=== PATIENT | male | born 1955 | race Caucasian/White ===

== ENCOUNTER → 2016-05-13 | Outpatient (CLI) | payer BC ==
[~2016-05-13] MED LIST: GRAP1CAP; HCT25T; INSU100V13; INSU100V6; IRBE300T9; MELO-195; MULT-608; VITA1CAP59
--- NOTE | 2016-05-13 17:57 | Diagnostic Imaging Report ---
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 FINDINGS: Two views of the right calcaneus demonstrate no fracture or evidence of osteomyelitis. There is some ulceration posterior to the calcaneus. Osteophytes are seen at the insertion of the Achilles tendon and plantar fascia. Degenerative changes are present along the dorsum of the foot. IMPRESSION: There is soft tissue ulceration with no evidence of osteomyelitis. Dictated by: Dictated on workstation # [id number]
== END ==
LOC: RAD 16:28
PROVIDERS: ATTEND Nurse Practitioner
DX: E11.621 Type 2 diabetes mellitus with foot ulcer (principal); L97.412 Non-pressure chronic ulcer of right heel and midfoot with fat layer exposed
CPT/HCPCS: 36415; 73650; 83036

== ENCOUNTER 2016-08-04 11:54 | Outpatient (RCR) | payer BC, OTHER | END 2016-08-05 | disposition home or self-care (01) | LOC: WOUNDCARE 11:54 | PROVIDERS: ATTEND Nurse Practitioner | DX: E11.621 Type 2 diabetes mellitus with foot ulcer (principal); L97.412 Non-pressure chronic ulcer of right heel and midfoot with fat layer exposed | CPT/HCPCS: 11042; 11045; 87070; 87075; 87077; 87186; 87205 ==

== ENCOUNTER → 2016-08-04 | Outpatient (CLI) | payer BC, OTHER ==
[2016-08-04 12:24] LABS: ANION GAP 6 MMOL/L (5-14); BLOOD UREA NITROGEN 14 MG/DL (7-18); BUN/CREATININE RATIO 17; CALCIUM 9.1 MG/DL (8.5-10.1); CARBON DIOXIDE 28 MMOL/L (21-32); CHLORIDE 103 MMOL/L (98-107); CREATININE SERUM 0.83 MG/DL (0.60-1.30); GFR ESTIMATED > 60; GLUCOSE 182 MG/DL (70-105); POTASSIUM 4.3 MMOL/L (3.6-5.0); SODIUM 137 MMOL/L (135-145)
== END ==
LOC: LAB 11:40
PROVIDERS: ATTEND Nurse Practitioner
DX: E11.621 Type 2 diabetes mellitus with foot ulcer (principal); L97.412 Non-pressure chronic ulcer of right heel and midfoot with fat layer exposed
CPT/HCPCS: 36415; 80048

== ENCOUNTER → 2016-09-15 | Outpatient (CLI) | payer BC | LOC: LAB 13:59 | PROVIDERS: ATTEND Nurse Practitioner | DX: E11.621 Type 2 diabetes mellitus with foot ulcer (principal); L97.412 Non-pressure chronic ulcer of right heel and midfoot with fat layer exposed | CPT/HCPCS: 36415; 83036 ==

== ENCOUNTER 2016-10-08 12:08 | Outpatient (RCR) | payer BC, OTHER ==
[~2016-10-08 12:08] MED LIST changes: -MULT-608; +MULT-608 PO; -VITA1CAP59; +VITA1CAP59 PO
== END 2016-10-15 16:00 | disposition home or self-care (01) ==
LOC: WOUNDCARE 12:08
PROVIDERS: ATTEND Nurse Practitioner
DX: E11.621 Type 2 diabetes mellitus with foot ulcer (principal); L97.412 Non-pressure chronic ulcer of right heel and midfoot with fat layer exposed
CPT/HCPCS: 11042; 15275; 29581; 87070; 87075; 87077; 87186; 87205

== ENCOUNTER 2016-10-12 19:37 | Emergency (ER) | payer BC ==
[~2016-10-12] VITALS: Ht 180.3 cm; Wt 108.9 kg
[~2016-10-12 19:37] MED LIST changes: +MULT-608; -MULT-608 PO; +VITA1CAP59; -VITA1CAP59 PO
--- NOTE | 2016-10-12 19:48 | ED General ---
General Chief Complaint: Trauma-Non Activation Stated Complaint: FALL Source of Information: Patient, EMS, Family History of Present Illness Time Seen by Provider: 19:46 Initial Comments To ER per EMS from home with reports of a fall and inability to get up. The fall was secondary to generalized weakness which has been progressive over the past [address] Falcon called the emergency room earlier today to report that he was having patient sent out via EMS for this progressive weakness, to the point that he is unable to take care of himself at home. Patient hasn't had a shower in several days according to his because he's been too weak. Patient is an insulin-dependent diabetic being treated by Stan Dumas in the wound care clinic for a diabetic ulcer of the right heel. As part of this treatment, patient was instructed to have absolutely no weightbearing on the right leg. As such, he has been bed/chair bound for the past 4 months trying to let this wound heal. He states the wound is healing nicely (sees wound care every ) and is just about completely healed. However, this restricted mobility has caused him general weakness. He also states that he now has carpal tunnel in both of his hands and can't apple solutions consultant anything. He denies any chest pain or shortness of breath. Tonight he grabbed the door frame and slid down so this was not a abrupt fall but rather a more slow and controlled fall. He denies any injury from this. Reports chronic left knee pain and chronic left hip pain which Dr. Cantu has already seen and advised needs replaced. Timing/Duration: Getting Worse Severity: Moderate Allergies and Home Medications Allergies Coded Allergies: No Known Drug Allergies (Verified Allergy, Unknown, 03/18/09) Home Medications Grape Seed Xt/Bioflav,[place] 1 Each Capsule, (Reported) Hydrochlorothiazide 25 Mg Tab, (Reported) Insulin Glargine,Hum.rec.anlog 100 Unit/1 Ml Vial, (Reported) Insulin Regular, Human 100 Unit/1 Ml Vial, (Reported) Irbesartan 300 Mg Tablet, (Reported) Meloxicam 15 Mg Tablet, (Reported) Multivitamins 1 Tab Tablet, (Reported) Vitamin B Complex 1 Cap Capsule, (Reported) Constitutional: see HPI, weakness EENTM: see HPI Respiratory: no symptoms reported Cardiovascular: no symptoms reported Genitourinary: no symptoms reported Musculoskeletal: see HPI, other (chronic left knee/left hip pain) Skin: no symptoms reported Psychiatric/Neurological: No Symptoms Reported Hematologic/Lymphatic: No Symptoms Reported Immunological/Allergic: no symptoms reported Past Rvlduyp-Zxitbz-Wllvoa Hx Patient Social History Recent Foreign Travel: No Contact w/Someone Who Travel: No Cardiovascular Hx Cardiac Disorders: Yes Neurological Hx Neurological Disorders: No Reproductive System Hx Reproductive Disorders: No Genitourinary Hx Genitourinary Disorders: No Gastrointestinal Hx Gastrointestinal Disorders: No Musculoskeletal Hx Musculoskeletal Disorders: Yes Endocrine Hx Endocrine Disorders: Yes HEENT HX ENT Disorders: No Psychosocial Hx Psychiatric Problems: No Blood Transfusions Hx Blood Disorders: No Physical Exam Vital Signs Vital Sign - Last 12Hours Capillary Refill : General Appearance: No Apparent Distress, WD/WN, Chronically ill, Obese Eyes: Bilateral Eye EOMI, Bilateral Eye Normal Inspection, Bilateral Eye PERRL HEENT: PERRL/EOMI, TMs Normal Neck: Full Range of Motion, Normal Inspection Respiratory: Normal Breath Sounds, No Accessory Muscle Use, No Respiratory Distress Cardiovascular: Regular Rate, Rhythm, Normal Peripheral Pulses Gastrointestinal: Normal Bowel Sounds, Non Tender, Soft Extremity: Normal Capillary Refill, Normal Inspection, Other (right leg wound not inspected as pt has a wound care applied Snehal Boot in place. ) Neurologic/Psychiatric: Alert, Oriented x3 Skin: Normal Color, Warm/Dry, Other (seborrheic dermatitis to eyebrows) Progress/Results/Core Measures Results/Orders Lab Results Laboratory Tests Test 10/12/16 19:42 10/12/16 19:44 10/12/16 20:12 Range/Units Glucometer 134 H 70-110 MG/DL White Blood Count 5.5 4.3-11.0 10^3/uL Red Blood Count 4.74 4.35-5.85 10^6/uL Hemoglobin 13.8 13.3-17.7 G/DL Hematocrit 41 40-54 % Mean Corpuscular Volume 86 80-99 FL Mean Corpuscular Hemoglobin 29 25-34 PG Mean Corpuscular Hemoglobin Concent 34 32-36 G/DL Red Cell Distribution Width 15.6 H 10.0-14.5 % Platelet Count 264 130-400 10^3/uL Mean Platelet Volume 8.9 7.4-10.4 FL Neutrophils (%) (Auto) 54 42-75 % Lymphocytes (%) (Auto) 32 12-44 % Monocytes (%) (Auto) 11 0-12 % Eosinophils (%) (Auto) 2 0-10 % Basophils (%) (Auto) 1 0-10 % Neutrophils # (Auto) 3.0 1.8-7.8 X 10^3 Lymphocytes # (Auto) 1.8 1.0-4.0 X 10^3 Monocytes # (Auto) 0.6 0.0-1.0 X 10^3 Eosinophils # (Auto) 0.1 0.0-0.3 10^3/uL Basophils # (Auto) 0.0 0.0-0.1 10^3/uL Erythrocyte Sedimentation Rate 6 0-30 MM/HR Prothrombin Time 13.1 12.2-14.7 SEC INR Comment 1.0 0.8-1.4 Sodium Level 142 135-145 MMOL/L Potassium Level 3.7 3.6-5.0 MMOL/L Chloride Level 107 98-107 MMOL/L Carbon Dioxide Level 23 21-32 MMOL/L Anion Gap 12 5-14 MMOL/L Blood Urea Nitrogen 13 7-18 MG/DL Creatinine 0.78 0.60-1.30 MG/DL Estimat Glomerular Filtration Rate > 60 BUN/Creatinine Ratio 17 Glucose Level 135 H 70-105 MG/DL Calcium Level 9.4 8.5-10.1 MG/DL Magnesium Level 2.2 1.8-2.4 MG/DL Total Bilirubin 0.8 0.1-1.0 MG/DL Aspartate Amino Transf (AST/SGOT) 16 5-34 U/L Alanine Aminotransferase (ALT/SGPT) 19 0-55 U/L Alkaline Phosphatase 51 40-136 U/L Troponin I < 0.30 <0.30 NG/ML Total Protein 6.7 6.4-8.2 G/DL Albumin 4.0 3.2-4.5 G/DL Thyroid Stimulating Hormone (TSH) 0.86 0.35-4.94 UIU/ML Urine Color YELLOW Urine Clarity CLEAR Urine pH 8 5-9 Urine Specific [place] 1.010 L 1.016-1.022 Urine Protein NEGATIVE NEGATIVE Urine Glucose (UA) NEGATIVE NEGATIVE Urine Ketones NEGATIVE NEGATIVE Urine Nitrite NEGATIVE NEGATIVE Urine Bilirubin NEGATIVE NEGATIVE Urine Urobilinogen NORMAL NORMAL MG/DL Urine Leukocyte Esterase NEGATIVE NEGATIVE Urine RBC (Auto) NEGATIVE NEGATIVE Urine RBC NONE /HPF Urine WBC NONE /HPF Urine Crystals NONE /LPF Urine Bacteria NEGATIVE /HPF Urine Casts NONE /LPF Urine Mucus NEGATIVE /LPF Urine Culture Indicated NO My Orders Orders - YADIRA DHILLON ASSOCIATE [employer] Cbc With Automated Diff (10/12/16 19:43) Comprehensive Metabolic Panel (10/12/16 19:43) Ua Culture If Indicated (10/12/16 19:43) Protime With Inr (10/12/16 19:43) Chest 1 View, Ap/Pa Only (10/12/16 19:43) Ekg Tracing (10/12/16 19:43) Troponin I (10/12/16 19:43) Erythrocyte Sedimentation Rate (10/12/16 19:58) Magnesium (10/12/16 19:58) Thyroid Stimulating Hormone (10/12/16 19:58) Ct Head/Cervical Spine Wo (10/12/16 20:49) Hemoglobin A1c (10/12/16 21:38) Vital Signs/I&O Vital Sign - Last 12Hours 10/12/16 10/12/16 19:39 19:39 Temp 98.3 98.3 Pulse 77 77 Resp 20 20 B/P (MAP) 143/103 (116) 143/103 Pulse Ox 98 98 O2 Delivery Room Air Room Air Diagnostic Imaging Diagonstic Imaging: Xray Comments NAME: GUERLINEERVIN Sabi MED REC#: [id number] PT STATUS: REG ER : 1955 PHYSICIAN: YADIRA DHILLON APRN ADMIT DATE: 10/12/16/ER Draft Date of Exam:10/12/16 CHEST 1 VIEW, AP/PA ONLY INDICATION: Weakness COMPARISON: 03/13/2009 FINDINGS: Single frontal view of the chest is obtained. Heart size is normal. The pulmonary vessels appear unremarkable. There is no pneumothorax, mediastinal widening or pleural fluid demonstrated. The lungs are clear. IMPRESSION: No acute abnormality is demonstrated. Dictated on workstation # [id number] Dict: 10/12/162004 Trans: 10/12/162007 MARA [id number] Interpreted by: VONDA MOORE DO Electronically signed by: NAME: ERVIN CUNHA MED REC#: [id number] PT STATUS: REG ER : 1955 PHYSICIAN: YADIRA DHILLON APRN ADMIT DATE: 10/12/16/ER Draft Date of Exam:10/12/16 CT HEAD/CERVICAL SPINE WO PROCEDURE: CT head and CT cervical spine without contrast. TECHNIQUE: Multiple contiguous axial images were obtained through the brain and cervical spine without the use of intravenous contrast. Sagittal and coronal reformations through the cervical spine were then performed. INDICATION: Neck pain. COMPARISON: None FINDINGS: Head CT: No acute intracranial hemorrhage, mass effect or edema is demonstrated. The lynn-white junction is preserved. The ventricles appear normal. There is mild atrophy. No focal abnormality is suspected. The paranasal sinuses and mastoids are clear as visualized. Cervical spine CT: No acute fracture or osseous destructive process is seen. There is severe cervical spondylosis and facet arthropathy with degenerative disc changes. There is disc space narrowing predominantly at C5/C6 and C6/C7. Prominent disc osteophyte complexes at C5/C6 and C6/C7 results in fairly severe central stenosis. Significant hypertrophic facet arthropathy throughout the cervical spine results in fairly severe foraminal narrowing on the right at C2/C3, bilaterally at C3/C4, C4/C5, C5/C6 and C6/C7. Prevertebral soft tissues appear unremarkable. IMPRESSION: 1. No evidence of an acute intracranial abnormality. 2. No evidence of acute cervical spine fracture. There are, however, severe degenerative changes with multiple levels of severe foraminal and a couple levels of severe central stenosis. Dictated on workstation # [id number] Dict: 10/12/162112 Trans: 10/12/16 212 [facility] [id number] Interpreted by: VONDA MOORE DO Electronically signed by: Departure Communication Progress Notes Dr. Atkinson is not on-call but he graciously took my call and agrees to see the patient on Wednesday in his clinic. Impression Impression: Primary Impression: Cervical spinal stenosis Additional Impression: General weakness Disposition: 01 HOME, SELF-CARE Condition: Stable Departure-Patient Inst. Decision time for Depature: 21:27 Referrals: LEIA ATKINSON MD, FLOYD R MD (PCP/Family) Primary Care Physician Patient Instructions: Spinal Stenosis Add. Discharge Instructions: 1. Return to ER for any concerns 2. Call elevated at Dr. Atkinson's office tomorrow morning at [phone] to make an appointment to be seen on Wednesday per Dr. Atkinson's request. All discharge instructions reviewed with patient and/or family. Voiced understanding. Copy Copies To 1: LEIA ATKINSON MD, PETER J APRN Oct 12, 2016 19:48
[2016-10-12 20:01] LABS: BASOPHILS % (AUTO) 1 % (0-10); EOSINOPHILS # (AUTO) 0.1 10^3/uL (0.0-0.3); EOSINOPHILS % (AUTO) 2 % (0-10); LYMPHOCYTES # (AUTO) 1.8 X 10^3 (1.0-4.0); LYMPHOCYTES % (AUTO) 32 % (12-44); MEAN CORPUSCULAR HEMOGLOBIN 29 PG (25-34); MEAN CORPUSCULAR HGB CONC 34 G/DL (32-36); MEAN CORPUSCULAR VOLUME 86 FL (80-99); MEAN PLATELET VOLUME 8.9 FL (7.4-10.4); MONOCYTES # (AUTO) 0.6 X 10^3 (0.0-1.0); MONOCYTES % (AUTO) 11 % (0-12); NEUTROPHILS % (AUTO) 54 % (42-75); PLATELET COUNT 264 10^3/uL (130-400); RED BLOOD COUNT 4.74 10^6/uL (4.35-5.85); RED CELL DISTRIBUTION WIDTH 15.6 % (10.0-14.5); WHITE BLOOD COUNT 5.5 10^3/uL (4.3-11.0)
--- NOTE | 2016-10-12 20:08 | Diagnostic Imaging Report ---
INDICATION: Weakness COMPARISON: 03/13/2009 FINDINGS: Single frontal view of the chest is obtained. Heart size is normal. The pulmonary vessels appear unremarkable. There is no pneumothorax, mediastinal widening or pleural fluid demonstrated. The lungs are clear. IMPRESSION: No acute abnormality is demonstrated. Dictated by: Dictated on workstation # [id number]
[2016-10-12 20:12] LABS: PROTHROMBIN TIME PATIENT 13.1 SEC (12.2-14.7)
[2016-10-12 20:14] LABS: MAGNESIUM 2.2 MG/DL (1.8-2.4)
[2016-10-12 20:21] LABS: ALANINE AMINOTRANSFERASE 19 U/L (0-55); ANION GAP 12 MMOL/L (5-14); ASPARTATE AMINO TRANSFERASE 16 U/L (5-34); BILIRUBIN,TOTAL 0.8 MG/DL (0.1-1.0); BLOOD UREA NITROGEN 13 MG/DL (7-18); BUN/CREATININE RATIO 17; CALCIUM 9.4 MG/DL (8.5-10.1); CARBON DIOXIDE 23 MMOL/L (21-32); CHLORIDE 107 MMOL/L (98-107); CREATININE SERUM 0.78 MG/DL (0.60-1.30); GFR ESTIMATED > 60; GLUCOSE 135 MG/DL (70-105); POTASSIUM 3.7 MMOL/L (3.6-5.0); SODIUM 142 MMOL/L (135-145); TOTAL PROTEIN 6.7 G/DL (6.4-8.2)
[2016-10-12 20:21] LABS: BILIRUBIN,URINE NEGATIVE (NEGATIVE); KETONES,URINE NEGATIVE (NEGATIVE); LEUKOCYTE ESTERASE ,URINE NEGATIVE (NEGATIVE); NITRITE,URINE NEGATIVE (NEGATIVE); PH,URINE 8 (5-9); PROTEIN,URINE NEGATIVE (NEGATIVE); UROBILINOGEN,URINE NORMAL (NORMAL)
[2016-10-12 20:27] LABS: TROPONIN I < 0.30 NG/ML (<0.30)
[2016-10-12 20:41] LABS: THYROID STIMULATING HORMONE 0.86 UIU/ML (0.35-4.94)
--- NOTE | 2016-10-12 21:25 | Diagnostic Imaging Report ---
PROCEDURE: CT head and CT cervical spine without contrast. TECHNIQUE: Multiple contiguous axial images were obtained through the brain and cervical spine without the use of intravenous contrast. Sagittal and coronal reformations through the cervical spine were then performed. INDICATION: Neck pain. COMPARISON: None FINDINGS: Head CT: No acute intracranial hemorrhage, mass effect or edema is demonstrated. The lynn-white junction is preserved. The ventricles appear normal. There is mild atrophy. No focal abnormality is suspected. The paranasal sinuses and mastoids are clear as visualized. Cervical spine CT: No acute fracture or osseous destructive process is seen. There is severe cervical spondylosis and facet arthropathy with degenerative disc changes. There is disc space narrowing predominantly at C5/C6 and C6/C7. Prominent disc osteophyte complexes at C5/C6 and C6/C7 results in fairly severe central stenosis. Significant hypertrophic facet arthropathy throughout the cervical spine results in fairly severe foraminal narrowing on the right at C2/C3, bilaterally at C3/C4, C4/C5, C5/C6 and C6/C7. Prevertebral soft tissues appear unremarkable. IMPRESSION: 1. No evidence of an acute intracranial abnormality. 2. No evidence of acute cervical spine fracture. There are, however, severe degenerative changes with multiple levels of severe foraminal and a couple levels of severe central stenosis. Dictated by: Dictated on workstation # [id number]
[2016-10-12 22:14] VITALS: BP 143/103
== END 2016-10-12 22:14 | disposition home or self-care (01) ==
LOC: EDUNIT# 19:37 → ER 19:38
DX: M48.02 Spinal stenosis, cervical region (principal); R53.1 Weakness; E11.621 Type 2 diabetes mellitus with foot ulcer; L97.419 Non-pressure chronic ulcer of right heel and midfoot with unspecified severity; Z79.4 Long term (current) use of insulin
CPT/HCPCS: 36415; 70450; 71010; 72125; 80053; 81000; 82962; 83036; 83735; 84443; 84484; 85025; 85610; 85652; 93005

== ENCOUNTER 2016-10-19 13:37 | Inpatient (IN) | payer BC ==
[~2016-10-19] VITALS: Ht 180.3 cm; Wt 103.4 kg
[~2016-10-19 13:37] MED LIST changes: -MULT-608; +MULT-608 PO; -VITA1CAP59; +VITA1CAP59 PO
[2016-10-19 16:20] VITALS: BP 113/82
[2016-10-19] MEDS ORDERED: ACETAMINOPHEN 500 MG TAB (TYLENOL) PO PRN (17:15)
[2016-10-19] MEDS: HYDROcodone/APAP 10 MG/325 MG (LORTAB) TAB PO PRN ×2 (18:04→22:45)
[2016-10-19] MEDS ORDERED: metFORMIN 500 MG (GLUCOPHAGE) TAB PO ONE (18:15)
[2016-10-19] MEDS: inSUlin (REGULAR) HUMAN 1 UNIT/0.01 ML (CHARGE PER UNIT) SC SCH (20:20)
[2016-10-19] MEDS: SENNA W/DOCUSATE (SENOKOT S) TABLET PO SCH (21:31)
[2016-10-19] MEDS: VERAPAMIL 80 MG (ISOPTIN) TAB PO SCH (21:32)
--- NOTE | 2016-10-20 01:20 | HISTORY AND PHYSICAL ---
DATE OF SERVICE: 10/19/2016 CHIEF COMPLAINT: Weakness and numbness in both hands. HISTORY OF PRESENT ILLNESS: The patient is a 61-year-old male, currently unemployed who has developed progressive weakness and numbness in both hands. The patient had evaluation at [facility] with Dr. Atkinson. Imaging studies reveal multilevel cervical facet disease and foraminal stenosis causing severe stenosis and cord compression with resulting cervical spondylosis and myelopathy with above symptoms as well as numbness and decreased strength in lower limbs. The patient underwent C3 to C7 anterior cervical reconstruction and corpectomy and is now referred to [facility] inpatient rehabilitation for ongoing therapies with approval from his commercial insurance. He had been modified independent with a crutch prior to this but having increasing symptoms and pain. Currently, he is using Vicodin for pain control. He is to have a rigid cervical collar on at all times except for eating. He has been followed by [facility] on an outpatient basis for a diabetic pressure sore on the right foot which receives daily silver alginate treatments. He has had prior right hip surgery as well. He is type 2 diabetic and on sliding scale insulin regimen as well as oral medication. He is on CPAP machine for AMY. Currently, he requires assistance for his ADLs and mobility skills.He is max assist for transfers and dependent for lower body dressing and wound care .See PT and OT evals for futher details. PAST MEDICAL HISTORY: Cervical spine stenosis, right diabetic foot ulcer involving the heel, diabetes mellitus, hypertension, AMY on CPAP, osteoarthritis. PAST SURGICAL HISTORY: He has had prior right hip surgery. ALLERGIES: No known medication allergies. FAMILY HISTORY: Positive for diabetes mellitus. SOCIAL HISTORY: No tobacco or alcohol use. He is single. He lives in a one story home with steps to enter in [place], [place]. PCP is Dr. Falcon and Dr. Duvall is hospitalist. He is right hand dominant. He was working with [employer]. REVIEW OF SYSTEMS: A 10-point review of systems is significant for weakness and numbness in hands, numbness in feet, blurred vision, skin rash positive for psoriasis, right hip pain, neck pain, occasional dizziness, depression and sleep disturbance. MEDICATIONS: Hydrochlorothiazide 25 mg p.o. daily, metformin 500 mg p.o. b.i.d., with meals 1 tablet p.o. daily, vitamin B complex 1 tablet p.o. daily, verapamil 40 mg p.o. b.i.d., tramadol 50 mg p.o. q.h.s., Senokot S 1 tablet p.o. b.i.d., sliding scale insulin regimen, metformin, Tylenol 500 mg p.o. q. 5 hours p.r.n. mild pain, hydrocodone/APAP 10 mg 1 tablet p.o. q. 4 hours p.r.n. moderate pain. PHYSICAL EXAMINATION: GENERAL APPEARANCE: Significant for male, appearing his stated age. He is alert and oriented, lying in bed with rigid collar in place, complaining of posterior neck pain. VITAL SIGNS: He is afebrile. Pulse is 88. Respirations 20. Blood pressure 113/82 and oxygen saturation is 98% on room air. HEENT: Vision, speech and hearing are grossly intact. No oral lesion is noted. NECK: Rigid cervical collar, incision site covered in dressing, dry and intact. HEART: Regular rate and rhythm. LUNGS: Clear. ABDOMEN: Soft and nontender. Bowel sounds are present. EXTREMITIES: No lower limb edema. No calf tenderness. MUSCULOSKELETAL: The patient has functional passive range of motion of all four extremities with some limitations taken due to the rigid collar. NEUROLOGIC: He has weakness in both arms, particularly on the right wrist extension and right finger extensors. He has fair minus strength in right private household worker and fair in left private household worker. He reports tingling in both hands as well as his feet. Strength in lower extremities 3-/5. Cognition appears grossly intact. IMPRESSION: 1. Ambulatory dysfunction secondary to cervical spine stenosis with cord compression with myelopathy, status post decompressive surgery as per above Dr. Atkinson at [facility]. 2. Diabetes mellitus, controlled with medication. 3. Hypertension, controlled with medication. 4. AMY, on CPAP. 5. Depression, on medication. 6. Diabetic foot ulcer rt heel now healed as per DR Ceja note PLAN: 1. The patient will have a comprehensive program of inpatient rehabilitation with a goal of maximizing level of functional independence prior to discharge home with home healthcare. The patient will have PT and OT 90 minutes per day, each discipline, 5 days a week for gait, strength, conditioning, balance, ADLs and patient/family training, caregiver training as necessary, any adaptive equipment and training as necessary, pain management. Speech therapy to do cognitive assessment and treat as indicated. Rehabilitation Nursing to assist with bowel, bladder, skin, wound care, medication administration, pain management. enterprise services manager for discharge planning and community re-entry. Respiratory care: Continue assist with CPAP administration as needed. Follow up with Dr. Atkinson and Dr. Vaughan as per their schedule. Routine admission labs. Accu-Checks q.i.d. before each meal and at bedtime. Adjust medications as necessary. Estimated length of stay, 2 weeks. PROGNOSIS: Rehab prognosis appears good for the goal of discharging him home with home healthcare, modified independent to supervision for ADLs and mobility skills. DIET: Carb consistent. CODE STATUS: Full code. Job ID: [id number] DocumentID: [id number] Dictated Date: 10/19/2016 19:42:50 Photographer Helper Date: 10/19/2016 22:34:18 Dictated By: JOSEY SALINAS MD MTDD
[2016-10-20] MEDS: HYDROcodone/APAP 10 MG/325 MG (LORTAB) TAB PO PRN ×6 (02:14→22:48)
[2016-10-20 06:00] VITALS: BP 130/90
[2016-10-20] MEDS: inSUlin (REGULAR) HUMAN 1 UNIT/0.01 ML (CHARGE PER UNIT) SC SCH ×5 (06:31→18:56)
[2016-10-20] MEDS: metFORMIN 500 MG (GLUCOPHAGE) TAB PO SCH ×2 (06:31→18:55)
[2016-10-20] MEDS: MULTIVIT W/MINERALS TAB (THERAGRAN M) PO SCH (06:31)
[2016-10-20 07:00] LABS: BASOPHILS % (AUTO) 1 % (0-10); EOSINOPHILS # (AUTO) 0.3 10^3/uL (0.0-0.3); EOSINOPHILS % (AUTO) 4 % (0-10); LYMPHOCYTES # (AUTO) 1.3 X 10^3 (1.0-4.0); LYMPHOCYTES % (AUTO) 21 % (12-44); MEAN CORPUSCULAR HEMOGLOBIN 29 PG (25-34); MEAN CORPUSCULAR HGB CONC 33 G/DL (32-36); MEAN CORPUSCULAR VOLUME 89 FL (80-99); MONOCYTES # (AUTO) 0.7 X 10^3 (0.0-1.0); MONOCYTES % (AUTO) 12 % (0-12); NEUTROPHILS # (AUTO) 3.8 X 10^3 (1.8-7.8); NEUTROPHILS % (AUTO) 62 % (42-75); PLATELET COUNT 259 10^3/uL (130-400); RED BLOOD COUNT 4.59 10^6/uL (4.35-5.85); RED CELL DISTRIBUTION WIDTH 15.9 % (10.0-14.5); WHITE BLOOD COUNT 6.1 10^3/uL (4.3-11.0)
[2016-10-20 07:21] LABS: ALANINE AMINOTRANSFERASE 21 U/L (0-55); ALBUMIN 3.5 GM/DL (3.2-4.5); ANION GAP 11 MMOL/L (5-14); ASPARTATE AMINO TRANSFERASE 16 U/L (5-34); BLOOD UREA NITROGEN 22 MG/DL (7-18); BUN/CREATININE RATIO 32 (0-20); CALCIUM 9.8 MG/DL (8.5-10.1); CARBON DIOXIDE 25 MMOL/L (21-32); CHLORIDE 103 MMOL/L (98-107); CREATININE SERUM 0.69 MG/DL (0.60-1.30); GFR ESTIMATED > 60; GLUCOSE 175 MG/DL (70-105); HEMOLYSIS 9 (-100-29); ICTERUS 0.9 (-100-1.9); LIPEMIA 3 (-100-49); SODIUM 139 MMOL/L (135-145); TOTAL PROTEIN 6.8 GM/DL (6.4-8.2)
--- NOTE | 2016-10-20 07:53 | PM&R Post Admission Assessment ---
Post Admission Physician Asses The preadmission screen agrees with the post admission assessment that the patient is a good candidate for inpatient rehabilitation. The patient will have a comprehensive program of inpatient rehabilitation with a goal of maximizing level of functional independence prior to discharge home with [facility]. The patient will have PT/OT ninety minutes per day, each discipline , five days a week for gait, strengthening, conditioning, balance, ADLs, any patient/family/caregiver training necessary. Speech therapy to do cognitive assessment and treat as indicated. Rehabilitation nursing to assist with bowel, bladder, skin, wound care, medication administration, pain management. Health Center Manager to assist with discharge planning, community reentry. SCD's for DVT prophylaxis. He appears to be well motivated to participate in three hours of therapy a day. He should be able to tolerate three hours of therapy a day from a medical and surgical standpoint . He should benefit from the three hours of therapy a day. He has a reasonable discharge plan, reasonable discharge rehabilitation goals and a supportive family. He has various comorbidities that need to be closely monitored with medications and treatments adjusted on a daily basis as needed. These include: Pain management DM Rt diabetic foot ulcer HTN AMY OA Barriers to discharge for this patient who had been independent prior to this are for him to be modified independent to supervision for ADLs and mobility skills prior to discharge home with [facility], so as to lessen the burden of the caregivers. Risks for this patient include: 1. Fall 2. Fracture 3. DVT 4. Pulmonary embolism 5. Wound infection 6. Skin breakdown 7. Contractures 8. Poorly controlled pain 9. Urinary retention 10. UTI 11. Respiratory infection 12. Aspiration 13. Poorly controlled HTN 14. Poorly controlled DM Estimated Length of Stay: 14 days Prognosis: Rehab prognosis appears good for goal of discharge home with [facility] modified independent to supervision for ADLs and mobility skills. JOSEY SALINAS MD Oct 20, 2016 07:53
[2016-10-20] MEDS: HYDROCHLOROTHIAZIDE 25 MG (HCTZ) TAB PO SCH (07:58)
[2016-10-20] MEDS: SENNA W/DOCUSATE (SENOKOT S) TABLET PO SCH ×2 (07:58→20:28)
[2016-10-20] MEDS: VERAPAMIL 80 MG (ISOPTIN) TAB PO SCH ×2 (07:59→20:27)
--- NOTE | 2016-10-20 10:08 | Physical Therapy Evaluation ---
PT Evaluation-General Medical Diagnosis Admission Date Oct 19, 2016 at 16:34 Medical Diagnosis: C3 to C7 anterior cervical reconstruction and Onset Date: Oct 15, 2016 Therapy Diagnosis Therapy Diagnosis: impaired mobility, strength, balance, endurance Height/Weight Height (Feet): 5 Height (Inches): 11.00 Weight (Pounds): 230 Weight (Ounces): 8.0 Precautions Precautions/Isolations: Fall Prevention, Standard Precautions Referral Physician: Rambo Reason for Referral: Evaluation/Treatment Medical History Additional Medical History Cervical spine stenosis, right diabetic foot ulcer, diabetes mellitus, hypertension, AMY on CPAP, osteoarthritis, He has had prior right hip surgery Current History Patient had a decline in function about a week before surgery, could not ambulate and lost the strength in his hands. Reviewed History: Yes Social History Home: Single Level Current Living Status: Significant Other Entry Into Home: Stairs With Railing PT Steps Into Home: 5 Prior/Core FIM Prior Level of Function Functional [place] Measure 0=Not Assessed/NA 4=Minimal Assistance 1=Total Assistance 5=Supervision or Setup 2=Maximal Assistance 6=Modified [place] 3=Moderate Assistance 7=Complete [place] Bed Mobility: 6 Transfers (B,C,W/C) (FIM): 6 Gait: 6 Before getting weak, patient used a crutch to ambulate, and he did that for a long time. PT Evaluation-Current Subjective Patient in bed pre tx, agrees to PT, will be co-treating with OT due to poor patient balance, activity tolerance, pain, poor functional mobility. Patient currently has pain of 5/10 in his neck and right hip. Patient states his right hip is pretty bad, as well as his right knee, which he has a brace for. Patient needs to get on the commode for a BM. He also has a diabetic foot ulcer on the right heel which he wears a darco shoe for. Pt/Family Goals to be independent at home Objective Patient Orientation: Person, Place, Situation ROM/Strength ROM Lower Extremities NT Strenght Lower Extremities 3-/5 gross bilateral lower extremities Integumentary/Posture Bowel Incontinence: Yes Neuromuscular (Tone, Coordination, Reflexes) Patient has poor general tone and coordination. Sensory Vision: Wears Glasses Hearing: Functional Sensation Right Lower Extremit: Impaired Sensation Left Lower Extremity: Impaired Transfers Functional [place] Measure 0=Not Assessed/NA 4=Minimal Assistance 1=Total Assistance 5=Supervision or Setup 2=Maximal Assistance 6=Modified [place] 3=Moderate Assistance 7=Complete IndependenceIRFPAI Quality Coding Scale 6 Independent with activity with or without an assistive device 5 Patient requires set up or clean up by helper. Patient completes activity by themselves 4 Supervision or touching assist (CGA). [place] provide cues , steadying assist 3 The helper provides less than half the effort to complete the activity 2 The helper provides more than half the effort to complete the activity 1 Dependent. The helper does all the effort to complete an activity 7 Patient refused to complete or attempt activity 9 The patient did not perform the activity before the current illness or injury 88 Not attempted due to Medical conditions or safety concerns Transfers (B, C, W/C) (FIM): 2 Scootin Rollin Roll Left to Right (QC): 2 Supine to/from Sit: 2 Sit to/from Stand: 2 bed t/f WC(FIM only if WC use): 2 Sit to Lying (QC): 2 Lying to Sitting/Side of Bed(Q: 2 Sit to Stand (QC): 2 Chair/Udf-ha-Wpnzp Xfer(QC): 2 Car Transfer (QC): 88 Patient performs bed mobility with max assist, stand pivot with max assist of 2. Cues for safety and hand placement and positioning. Gait Does the Patient Walk?: No and Walking Goal IS indicated Wheelchair Training Does the Pt Use a Wheelchair?: Yes Wheelchair (FIM): 5 Distance: 150' Wheelchair Level of Assist: 5 Wheel 50 ft with 2 turns (QC): 4 Wheel 150 ft (QC): 4 Type of Wheelchair: Motorized Patient has poor strength and coordination in his hands and cannot propel a manual wheelchair, he is SBA with driving a power chair. Stairs Stairs (FIM): 0 1 Step (curb) (QC): 88 4 Steps (QC): 88 12 Steps (QC): 88 If not tested on admit;explain Patient does not have the strength to ambulate much less go up stairs. Balance Sitting Static: Fair Sitting Dynamic: Fair Standing Static: Poor Standing Dynamic: Poor Picking up an Object (QC): 88 Treatment adjusting power chair to fit patient Assessment/Needs Patient has impaired mobility, strength, endurance, balance. He is a high risk of falling. Skilled PT indicated to improve bed mobility and transfers and try to get patient ambulating to improve functional mobility and independence at home. Rehab Potential: Fair PT Short Term Goals Short Term Goals Time Frame: Oct 27, 2016 Transfers (B,C,W/C) (FIM): 3 Gait (FIM): 1 Gait Distance Comment: 8' Gait Level of Assist: 3 Wheelchair (FIM): 6 Wheelchair Distance: 200' PT Cloth Hauler Goals Cloth Hauler Goals PT Alf Goals Time Frame: Nov 10, 2016 Transfers (B,C,W/C) (FIM): 4 Sit to Lying (QC): 3 Lying-Sitting on Side/Bed(QC): 3 Sit to Stand (QC): 3 Rollin Roll Left to Right (QC): 3 Chair/Eqn-tx-Swyrn Xfer(QC): 3 Car Transfer (QC): 3 Gait (FIM): 1 Distance: 20' Walk 10 feet (QC): 3 Walk 10ft-Uneven Surface(QC): 88 Walk 50ft with 2 Turns (QC): 88 Walk 150 ft (QC): 88 Gait Level of Assist: 4 Gait Assistive Device: FWW Wheelchair (FIM): 6 Distance: 500' Wheel 50 feet with 2 turns (QC: 6 PT Plan Problem List Problem List: Activity Tolerance, Functional Strength, Safety, Balance, Gait, Transfer, Bed Mobility, ROM Treatment/Plan Treatment Plan: Continue Plan of Care Treatment Plan: Bed Mobility, Education, Functional Activity Fady, Functional Strength, Group Therapy, Gait, Safety, Therapeutic Exercise, Transfers Treatment Duration: Nov 10, 2016 # of days/week 5-6 Visits Per Week: 10-11 Minutes/Day (M-F): 60-90 Minutes/Day (Sat/Cotter): 15-30 Pt/Family Agrees w/Plan: Yes Safety Risks/Education Patient Education: Transfer Techniques, Steps, Correct Positioning, W/C Management, Safety Issues Teaching Recipient: Patient Teaching Methods: Demonstration, Discussion Response to Teaching: Reinforcement Needed Discharge Recommendations Plan Patient will perform bed mobility and transfer training, balance and endurance training, functional strengthening, stair training, gait training, and education , to improve functional mobility and independence at home. Therapy D/C Recommendations: Home w/ Family Support, Nursing Home (TCU/NH) Time/GCodes Time In: 900 Time Out: 1000 Total Billed Treatment Time: 60 Total Billed Treatment 1 visit EVM 15' WCH 15' FA 30' Co-treated with OT for 45 min. OT assisted with toileting with transfers and cleaning and gave the patient a bath while PT worked on his power chair adjusting and fitting. PT had 15 min [id number] for the eval. CATALINA RUBI PT Oct 20, 2016 10:08
[2016-10-20] MEDS ORDERED: HYDR25TA4 PO (10:16)
[2016-10-20] MEDS ORDERED: INSU100V31 SQ (10:16)
[2016-10-20] MEDS ORDERED: CELE400C PO (10:22)
[2016-10-20] MEDS ORDERED: METF500T4 PO (10:22)
[2016-10-20] MEDS ORDERED: VERA40TA2 PO (10:22)
[2016-10-20] MEDS ORDERED: ACET-2267 PO (10:22)
[2016-10-20] MEDS ORDERED: TRAM50TA2 PO (10:22)
[2016-10-20] MEDS ORDERED: HYDR-753 PO (10:22)
[2016-10-20] MEDS ORDERED: HYDROcodone/APAP 10 MG/325 MG (LORTAB) TAB PO SCH (10:45)
[2016-10-20] MEDS ORDERED: ACETAMINOPHEN 500 MG TAB (TYLENOL) PO PRN (10:45)
--- NOTE | 2016-10-20 10:47 | Consultation-Hospitalist ---
HPI History of Present Illness: HPI/Chief Complaint CC: Medical management following cervical spine surgery HPI: This is a 61-year-old white male that had an uncomplicated cervical spine surgery by Dr. Atkinson on 10/13/16 because of spinal cord compression causing upper and lower extremity weakness with severe radiculopathy and neuropathy and inability to walk. He was seen in the emergency room via [facility] and sent over to Dr. Atkinson's office who evaluated the patient to be in a surgical urgency and underwent cervical spine decompression surgery with hardware placement in an uncomplicated manner on 10/15/16. 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 He has a history of AMY compliant with CPAP, hypertension, osteoarthritis and diabetes mellitus insulin- dependent. He had an uncomplicated course at [facility] and [place], [place] of which I saw him most days of admission following along for medical management. He did have severe fecal impaction with severe constipation due to the spinal cord compression situation in addition to narcotic bowel that was resolved after soapsuds enema given at [facility] yesterday. BM regimen will be initiated. Source: patient Date Seen 10/20/16 Attending Physician Sebastian Ricks MD PCP Siddharth Falcon MD Referring Physician Date of Admission Oct 19, 2016 at 16:34 Home Medications & Allergies Home Medications Reviewed patient Home Medication Reconciliation Form Allergies Allergies Coded Allergies No Known Drug Allergies ([id number]) Past Ygukwao-Udugvs-Daztjq Hx Patient Social History Marrital Status: , cohabiting Employed/Student: employed ([employer]) Alcohol Use: Denies Use Recreational Drug Use: No Smoking Status: Former Smoker 2nd Hand Smoke Exposure: No Physical Abuse Screen: No Sexual Abuse: No Recent Foreign Travel: No Contact w/other who traveled: No Recent Hopitalizations: Yes Seasonal Allergies Seasonal Allergies: No Surgeries HX Surgeries: Yes Surgeries: Orthopedic Respiratory Hx Respiratory Disorders: Yes Respiratory Disorders: Sleep Apnea Cardiovascular Hx Cardiovascular Disorders: Yes Cardiac Disorders: Hypertension Neurological Hx Neurological Disorders: Yes Neurological Disorders: Neuropathy Reproductive System Hx Reproductive Disorders: No Genitourinary Hx Genitourinary Disorders: No Gastrointestinal Hx Gastrointestinal Disorders: Yes Gastrointestinal Disorders: Chronic Constipation Musculoskeletal Hx Musculoskeletal Disorders: Yes Musculoskeletal Disorders: Arthritis, Chronic Back Pain, Contracture Endocrine Hx Endocrine Disorders: Yes Endocrine Disorders: Diabetes, Insulin dep HEENT HX ENT Disorders: No HEENT Disorders: Cataract Hearing Impairment: Denies Cancer Hx Cancer: No Psychosocial Hx Psychiatric Problems: No Integumentary Skin/Integumentary Disorders: Psoriasis Blood Transfusions Hx Blood Disorders: No Review of Systems Date Seen by Provider: Oct 20, 2016 Time Seen by Provider: 10:30 Constitutional: see HPI EENTM: no symptoms reported Respiratory: no symptoms reported Cardiovascular: no symptoms reported Gastrointestinal: constipation Genitourinary: no symptoms reported Musculoskeletal: back pain, neck pain Skin: no symptoms reported, see HPI (DM wound right foot) Psychiatric/Neurological: No Symptoms Reported Physical Exam Physical Exam Vital Signs Vital Sign - Last 12Hours 10/19/16 16:20 Temp 98.2 Pulse 88 Resp 20 B/P (MAP) 113/82 Pulse Ox 98 O2 Delivery Room Air Capillary Refill : Less Than 3 Seconds General Appearance: No Apparent Distress, WD/WN, Chronically ill, Obese Eyes: Bilateral Eye Normal Inspection, Bilateral Eye PERRL HEENT: PERRL/EOMI, Normal ENT Inspection, Pharynx Normal Neck: Full Range of Motion, Normal Inspection, Non Tender, Supple, Carotid Bruit Respiratory: Chest Non Tender, Lungs Clear, Normal Breath Sounds, No Accessory Muscle Use, No Respiratory Distress Cardiovascular: Regular Rate, Rhythm, No Edema, No Gallop, No JVD, No Murmur, Normal Peripheral Pulses Gastrointestinal: Normal Bowel Sounds, No Organomegaly, No Pulsatile Mass, Non Tender, Soft Back: Normal Inspection, No CVA Tenderness, No Vertebral Tenderness Extremity: Normal Capillary Refill, Normal Inspection, Normal Range of Motion, Non Tender, No Calf Tenderness, No Pedal Edema Neurologic/Psychiatric: Alert, Oriented x3, Normal Mood/Affect, Motor Weakness (arms and legs) Skin: Normal Color, Warm/Dry Lymphatic: No Adenopathy Results Results/Procedures Lab Laboratory Tests 10/20/16 06:18 10/20/16 06:48 Assessment/Plan Admission Diagnosis Assessment: Debility following cervical spine surgery due to spinal cord compression causing radiculopathy and neuropathy and inability to walk with arm and leg weakness Diabetic ulcer right foot Diabetes mellitus insulin-dependent Hypertension AMY compliant with sleep apnea treatment Osteoarthritis Assessment and Plan Plan: Maintain insulin regimen and reconciled all home meds to accuracy Monitor blood sugar Bowel regimen Rehabilitation Clinical Quality Measures DVT/VTE Risk/Contraindication: Risk Factor Score Per Nursin RFS Level Per Nursing on Admit: 4+=Very High KEANU LI DO Oct 20, 2016 10:47
--- NOTE | 2016-10-20 11:34 | ST Cognitive Linguistic Eval ---
Speech Evaluation-General Medical Diagnosis C3 to C7 anterior cervical reconstruction and Onset Date: Oct 15, 2016 Therapy Diagnosis Therapy Diagnosis: Cognitive Linguistic Skills WFL Precautions Precautions/Isolations: Fall Prevention, Standard Precautions Referral Referring Physician: Dr. Sebastian Ricks Reason for Referral: Evaluation/Treatment Cognitive Evaluation Medical History Pertinent Medical History: DM, HTN Reviewed History: Yes Social History Home: Single Level Current Living Status: Significant Other Speech PLF-Current Status Prior Level of Function The patient denied difficulty with swallowing, cognition, speech, or language prior to or following his recent cervical procedure. Subjective The patient was recently admitted to [facility] following a cervical spine procedure. The patient greeted the clinician appropriately and was agreeable to participation in the cognitive evaluation. Language Eval: Auditory Comprehends Simple Yes/No Ques: Functional Indent/Objects [place]: Functional Ident/Pics in [place]: Functional Follows 1-Step Commands: Functional Follows Complex Directions: Functional Follows General Conversations: Functional Language Eval: Verbal Language Completes Spontaneous Greeting: Functional Produces Auto, Serial Info: Functional Imitates Simple Words/Phrases: Functional Word Finding: Functional Requests Basic Needs: Functional States Basic Personal Info: Functional Expresses Complex Ideas: Functional Cognitive Patient Orientation The patient is oriented to month, day of week, date, and year (independently). Objective Cognitive Domain Attention: WNL Memory: WNL Problem Solving: Functional Objective Impression The patient demonstrated cognitive linguistic skills grossly within normal limits. Communication/Social Cognition Comprehension: 6 Expression: 6 Social Interaction: 5 Problem Solvin Memory: 5 Speech Patient Assess Expression of Ideas/Wants: Expression (4) Understanding [place] Content: Understands (4) Brief Interview-Mental Status: Yes Repetition of Three Words: Three (3) Temporal Orientation: Year: Correct (3) Temporal Orientation: Month: Accurate within 5 days(2) Temporal Orientation: Day: Correct (1) Recall : Wear to say "Sock": Yes,after cueing (1) Recall : Color: Yes, no cue required (2) Recall : Bed: Yes, no cue required (2) Speech-Plan Treatment Plan Speech Therapy Treatment Plan: Discontinue ST Evaluation, only. Rehab Potential: Fair Safety Risks/Education Teaching Recipient: Patient Teaching Methods: Discussion Response to Teaching: Verbalize Understanding Education Topics Provided: Plan of Care, Results, Recommendations Time Speech Therapy Time In: 10:15 Speech Therapy Time Out: 10:30 Total Billed Time: 15 Billed Treatment Time 1, TUNGNDAPRIL AFLORD Oct 20, 2016 11:34
--- NOTE | 2016-10-20 11:40 | Occupational Therapy Eval ---
OT Evaluation-General/PLF Medical Diagnosis Admission Date Oct 19, 2016 at 16:34 Medical Diagnosis: C3 to C7 anterior cervical reconstruction Onset Date: Oct 15, 2016 Therapy Diagnosis Therapy Diagnosis: decr funct use bilat UEs, decr self care, decr funct mobility, weakness Height/Weight Height (Feet): 5 Height (Inches): 11.00 Weight (Pounds): 230 Weight (Ounces): 8.0 Precautions Precautions/Isolations: Fall Prevention, Standard Precautions Safety Interventions: Notify Family, Reorient-Attempt Referral Physician: Rambo Referral Reason: Evaluation/Treatment Medical History Pertinent Medical History: Arthritis, DM, HTN, Neuropathy, OA Additional Medical History Sleep apnea (uses bipap), chronic constipation, chronic back pain, psoriasis, depression. CTS bilat, chronic L hip and knee pain (has neoprene knee brace), recent falls Current History Pt fell at home on 10-12-16. Had cervical reconstruction C3-C7 on 10-15-16 and has rigid cervical collar, to be on at all times except when eating. Pt has been non weight-bearing on R LE for 4 months while healing diabetic ulcer R heel. Said he hobbled around using a crutch but can't hold one now. Reviewed History: Yes Social History Home: Single Level Current Living Status: Alone Entry Into Home: Stairs With Railing Steps Into Home: 5 He is form his but she helps him out. ADL-Prior Level of Function ADL PLOF Comments Pt reported that he previously has been able to manage his basic self care needs until recently when he has declined. 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 He said his recent activity level was hobbling to the living room and sitting all day in his underwear and t -shirt. DME/Equipment: Grab Bars, Shower Hose Digital Performance Analyst, Tub/Shower Occupation: unemployed OT Current Status Subjective Pt seen in room, up in bed, agreeable to OT. Pt reported pain in R hip and knee about 6/10 and said they always hurt. Appearance Alert, cooperative Current Glasses/Contacts: Yes Hearing Aids: No Dentures/Partials: No Hand Dominance: Right Upper Extremity ROM R shoulder approx 80-90 degr flex/abd, L approx 120 degrees flex/abd. PROM bilat grossly WFL. Muscle weakness in extensors wrists and fingers affect AROM. Upper Extremity Coordination Impaired bilat Upper Extremity Sensation Pt reported fingers are numb to above elbow. All fingers. He had carpal tunnel surgery but it did not fix numbness Upper Extremity Strength Impaired bilat. plan to do strength and coordination testing tomorrow ADL-Treatment ADL-Current Co-tx with PT with OT working on hand function and UE management, dressing, bathing, toileting, PT helping with transfers and LE management. Care complicated by pain in L hip and knee and decreased functional use of hands and neuropathy. Pt has also been relatively immobile for 4-6 months Functional [place] Measure 0=Not Assessed/NA 4=Minimal Assistance 1=Total Assistance 5=Supervision or Setup 2=Maximal Assistance 6=Modified [place] 3=Moderate Assistance 7=Complete IndependenceIRFPAI Quality Coding Scale 6 Independent with activity with or without an assistive device 5 Patient requires set up or clean up by helper. Patient completes activity by themselves 4 Supervision or touching assist (CGA). [place] provide cues , steadying assist 3 The helper provides less than half the effort to complete the activity 2 The helper provides more than half the effort to complete the activity 1 Dependent. The helper does all the effort to complete an activity 7 Patient refused to complete or attempt activity 9 The patient did not perform the activity before the current illness or injury 88 Not attempted due to Medical conditions or safety concerns Eating (FIM): 4 (Pt needed a little help picking up glass (L hand works better than R). Reported he fed himself chicken strips. provided cylindrical foam to build up handles for silverware) Eating (QC): 3 Bathing (FIM): 1 (Could not get under arm on L side. Unable to lean forward to wash lower legs. Three people required to stand him to wash kaleb area and bottom. Red rash observed L thigh near groin. Difficulty holding on to wash cloth) Bathing Location: L Arm, R Arm, L Upper Leg, R Upper Leg, Chest, Abdomen Shower/Bathe Self (QC): 1 Upper Body Dressing (FIM): 3 (Able to get hands into shirt but unable to get shirt over head and to pull shirt down. ) Upper Body Dressing (QC): 3 Lower Body Dressing (FIM): 1 (Could pick feet up to go into pants leg. Three people needed to stand him so thap pants could be pulled up. Unable to get socks and shoes off or on due to decreased sitting balance and decr hand function) Lower Body Dressing (QC): 1 On/Off Footwear (QC): 1 Toileting (FIM): 1 (Pt unable to manage clothing or hygiene. Three people needed to stand him to wipe and pull pants up. ) Toileting Hygiene (QC): 1 Transfers (B, C, W/C) (FIM): 1 (Two people needed to transfer him from bed to BSC and from BSC to power chair. ) Toilet/Commode Transfer (FIM): 1 (Two people needed to transfer him from bed to BSC) Toilet Transfer (QC): 1 Other Treatments Pt left up in power chair, with PT Education OT Patient Education: Modified ADL techniques, Purpose of tx/functional activities, Rehab process, Safety issues, Transfer techniques, Use of adapted equipment Teaching Recipient: Patient Teaching Methods: Demonstration, Discussion Response to Teaching: Verbalize Understanding, Return Demonstration, Reinforcement Needed OT Short Term Goals Short Term Goals Time Frame: Nov 03, 2016 Eating(FIM): 5 Grooming(FIM): 5 Upper Body Dressing(FIM): 4 Toileting(FIM): 2 Toilet/Commode Transfer(FIM): 3 Additional Short Term Goals: 1-Demonstrate ADL Tasks, 2-Verbalize Understanding , 3-ImproveStrength/Fady 1=Demonstrate adherence to instructed precautions during ADL tasks. 2=Patient will verbalize/demonstrate understanding of assistive devices/ modifications for ADL. 3=Patient will improve strength/tolerance for activity to enable patient to perform ADL's. OT Software Architect Goals Software Architect Goals Time Frame: Nov 17, 2016 Eating (FIM): 6 Eating (QC): 6 Groomin Oral Hygiene (QC): 6 Bathing(FIM): 5 (SBA, supervision) Shower/Bathe Self (QC): 4 Upper Body Dressing(FIM): 5 Upper Body Dressing (QC): 5 Lower Body Dressing(FIM): 5 Lower Body Dressing (QC): 4 On/Off Footwear (QC): 4 Toileting(FIM): 5 Toileting Hygiene (QC): 4 Toilet/Commode Transfer(FIM): 5 Toilet/Commode Transfer (QC): 4 Shower Transfer(FIM): 5 Additional Goals: 1-Demonstrate ADL Tasks, 2-Verbalize Understanding, 3- ImproveStrength/Fady 1=Demonstrate adherence to instructed precautions during ADL tasks. 2=Patient will verbalize/demonstrate understanding of assistive devices/ modifications for ADL. 3=Patient will improve strength/tolerance for activity to enable patient to perform ADL's. OT Education/Plan Problem List/Assessment Assessment: Decreased Activ Tolerance, Decreased UE Strength, Dependent Transfers, Impaired Bed Mobility, Impaired Coordination, Impaired Funct Balance , Impaired Self-Care Skills, Restricted Funct UE ROM Pt would benefit from skilled OT to increase her independence in basic self care to allow him to safely return to his home and decrease caregiver burden Discharge Recommendations Plan/Recommendations: Continue POC Barriers to Progress neuropathy in hands Target Placement home Treatment Plan/Plan of Care Treatment,Training & Education: Yes Patient would benefit from OT for education, treatment and training to promote independence in ADL's, mobility, safety and/or upper extremity function for ADL' s. Plan of Care: ADL Retraining, Functional Mobility, Group Exercise/Act as Ind ( education, exercise, activity tolerance, functional activities, coordination), UE Funct Exercise/Act, UE Neuromus Re-Ed/Coord, W/C Management Training Treatment Duration: Nov 17, 2016 # of days/week 5-6 Visits Per Week: 10-11 Minutes/Day (M-F): 75-90 Minutes/Day (Sat/Cotter): PRN Agreement: Yes Rehab Potential: Fair Time/GCodes Start Time: 08:45 Stop Time: 09:45 Total Time Billed (hr/min): 60 Billed Treatment Time visit, 15 minutes evaluation high intensity, 45 minutes ADL 45 minutes ADL was co-tx with pt, 15 minutes evaluation was 1:1 THAI HOOVER OT Oct 20, 2016 11:40
[2016-10-20] MEDS: LACTULOSE SYRUP 10GM/15ML (ENULOSE) 30ML UDC PO SCH ×2 (11:51→20:27)
--- NOTE | 2016-10-20 14:29 | Physical Therapy Daily Note ---
PT Daily Note-Current Subjective Patient in power chair pre tx, agrees to PT, needs a different cervical collar fitted, PT does this. Pain 5/10 in neck and left hip. Appearance Patient in power chair post tx, he is mod I with it. Patient instructed that he can go outside with his family using the power chair but he needs to notify the nurse. Mental Status Patient Orientation: Normal For Age Transfers Functional [place] Measure 0=Not Assessed/NA 4=Minimal Assistance 1=Total Assistance 5=Supervision or Setup 2=Maximal Assistance 6=Modified [place] 3=Moderate Assistance 7=Complete IndependenceIRFPAI Quality Coding Scale 6 Independent with activity with or without an assistive device 5 Patient requires set up or clean up by helper. Patient completes activity by themselves 4 Supervision or touching assist (CGA). [place] provide cues , steadying assist 3 The helper provides less than half the effort to complete the activity 2 The helper provides more than half the effort to complete the activity 1 Dependent. The helper does all the effort to complete an activity 7 Patient refused to complete or attempt activity 9 The patient did not perform the activity before the current illness or injury 88 Not attempted due to Medical conditions or safety concerns Wheelchair Training Does the Pt Use a Wheelchair?: Yes Wheelchair (FIM): 6 Distance: 3000' Wheel 50 ft with 2 turns (QC): 6 Wheel 150 ft (QC): 6 Type of Wheelchair: Motorized Patient was able to traverse sidewalks, ramps, and uneven terrain without difficulty. Treatments wheelchair mobility Assessment Current Status: Fair Progress mod I with a power wheelchair PT Short Term Goals Short Term Goals Time Frame: Oct 27, 2016 Transfers (B,C,W/C) (FIM): 3 Gait (FIM): 1 Gait Distance Comment: 8' Gait Level of Assist: 3 Wheelchair (FIM): 6 Wheelchair Distance: 200' PT Half-Way Goals Half-Way Goals PT Half-Way Goals Time Frame: Nov 10, 2016 Transfers (B,C,W/C) (FIM): 4 Sit to Lying (QC): 3 Lying-Sitting on Side/Bed(QC): 3 Sit to Stand (QC): 3 Rollin Roll Left to Right (QC): 3 Chair/Erj-gw-Zpycw Xfer(QC): 3 Car Transfer (QC): 3 Gait (FIM): 1 Distance: 20' Walk 10 feet (QC): 3 Walk 10ft-Uneven Surface(QC): 88 Walk 50ft with 2 Turns (QC): 88 Walk 150 ft (QC): 88 Gait Level of Assist: 4 Gait Assistive Device: FWW Wheelchair (FIM): 6 Distance: 500' Wheel 50 feet with 2 turns (QC: 6 PT Plan Problem List Problem List: Activity Tolerance, Functional Strength, Safety, Balance, Gait, Transfer, Bed Mobility, ROM Treatment/Plan Treatment Plan: Continue Plan of Care Treatment Plan: Bed Mobility, Education, Functional Activity Fady, Functional Strength, Group Therapy, Gait, Safety, Therapeutic Exercise, Transfers Treatment Duration: Nov 10, 2016 Visits Per Week: 10-11 Minutes/Day (M-F): 60-90 Minutes/Day (Sat/Cotter): 15-30 Safety Risks/Education Patient Education: Correct Positioning, W/C Management Patient states he has been able to use tilt on the wheelchair for pressure relief. Time/GCodes Time In: 1400 Time Out: 1430 Total Billed Treatment Time: 30 Total Billed Treatment 1 visit [facility] 30' CATALINA RUBI PT Oct 20, 2016 14:29
--- NOTE | 2016-10-20 15:12 | Occupational Ther Daily Note ---
OT Current Status-Daily Note Subjective Pt seen inroom, up in power chair, agreeable to OT. Appearance Alert, cooperative Mental Status/Objective Functional [place] Measure 0=Not Assessed/NA 4=Minimal Assistance 1=Total Assistance 5=Supervision or Setup 2=Maximal Assistance 6=Modified [place] 3=Moderate Assistance 7=Complete [place] ADL-Treatment Pt was able to hold razor and toothbrush with cylindrical foam. Pt left up in power chair after ADLs, with cervical collar off for a few minutes while skin on neck and chin dried after shaving. All needs met. Functional [place] Measure 0=Not Assessed/NA 4=Minimal Assistance 1=Total Assistance 5=Supervision or Setup 2=Maximal Assistance 6=Modified [place] 3=Moderate Assistance 7=Complete IndependenceIRFPAI Quality Coding Scale 6 Independent with activity with or without an assistive device 5 Patient requires set up or clean up by helper. Patient completes activity by themselves 4 Supervision or touching assist (CGA). [place] provide cues , steadying assist 3 The helper provides less than half the effort to complete the activity 2 The helper provides more than half the effort to complete the activity 1 Dependent. The helper does all the effort to complete an activity 7 Patient refused to complete or attempt activity 9 The patient did not perform the activity before the current illness or injury 88 Not attempted due to Medical conditions or safety concerns Eating (FIM): 4 (Pt was able to feed himself chicken strips but has difficulty holding cup. ) Eating (QC): 3 Grooming (FIM): 3 (Able to wash face with setup but some difficulty washing hands thoroughly. Able to brush teeth with setup and buildup handle on toothbrush but difficulty holding cup to get a drink to rinse mouth. Able to brush most of hair but not put it in ponytail kelley. Able to shave around mouth and chin but not able to turn razor to shave neck and under chin. pt has red rash under craig which he said clears up when using psoriasis shampoo. ) Oral Hygiene (QC): 3 Education OT Patient Education: Modified ADL techniques, Purpose of tx/functional activities, Use of adapted equipment Teaching Recipient: Patient Teaching Methods: Demonstration Response to Teaching: Return Demonstration OT Short Term Goals Short Term Goals Time Frame: Nov 03, 2016 Eating(FIM): 5 Grooming(FIM): 5 Upper Body Dressing(FIM): 4 Toileting(FIM): 2 Toilet/Commode Transfer(FIM): 3 Additional Short Term Goals: 1-Demonstrate ADL Tasks, 2-Verbalize Understanding , 3-ImproveStrength/Fady 1=Demonstrate adherence to instructed precautions during ADL tasks. 2=Patient will verbalize/demonstrate understanding of assistive devices/ modifications for ADL. 3=Patient will improve strength/tolerance for activity to enable patient to perform ADL's. OT Assisted Goals Music Video Director Goals Time Frame: Nov 17, 2016 Eating (FIM): 6 Eating (QC): 6 Groomin Oral Hygiene (QC): 6 Bathing(FIM): 5 (SBA, supervision) Shower/Bathe Self (QC): 4 Upper Body Dressing(FIM): 5 Upper Body Dressing (QC): 5 Lower Body Dressing(FIM): 5 Lower Body Dressing (QC): 4 On/Off Footwear (QC): 4 Toileting(FIM): 5 Toileting Hygiene (QC): 4 Toilet/Commode Transfer(FIM): 5 Toilet/Commode Transfer (QC): 4 Shower Transfer(FIM): 5 Additional Goals: 1-Demonstrate ADL Tasks, 2-Verbalize Understanding, 3- ImproveStrength/Fady 1=Demonstrate adherence to instructed precautions during ADL tasks. 2=Patient will verbalize/demonstrate understanding of assistive devices/ modifications for ADL. 3=Patient will improve strength/tolerance for activity to enable patient to perform ADL's. OT Education/Plan Problem List/Assessment Pt would benefit from skilled OT to increase her independence in basic self care to allow him to safely return to his home and decrease caregiver burden Discharge Recommendations Plan/Recommendations: Continue POC Treatment Plan/Plan of Care Patient would benefit from OT for education, treatment and training to promote independence in ADL's, mobility, safety and/or upper extremity function for ADL' s. Plan of Care: ADL Retraining, Functional Mobility, Group Exercise/Act as Ind ( education, exercise, activity tolerance, functional activities, coordination), UE Funct Exercise/Act, UE Neuromus Re-Ed/Coord, W/C Management Training Treatment Duration: Nov 17, 2016 Visits Per Week: 10-11 Minutes/Day (M-F): 75-90 Minutes/Day (Sat/Cotter): PRN Agreement: Yes Rehab Potential: Fair Time/GCodes Start Time: 13:10 Stop Time: 13:55 Total Time Billed (hr/min): 45 Billed Treatment Time visit, 45 minutes ADL THAI HOOVER OT Oct 20, 2016 15:12
--- NOTE | 2016-10-20 16:15 | Wound Care Progress Note ---
Subjective Subjective Subjective/Events-last exam 61 year old male with diabetic foot ulcer R heel, now healed. Protective dressing order given. Objective Exam Last Set of Vital Signs Vital Signs Date Time Temp Pulse Resp B/P (MAP) Pulse Ox O2 Delivery O2 Flow Rate FiO2 10/20/16 06:00 98.2 96 18 130/90 94 Room Air Capillary Refill : Less Than 3 Seconds I&O Bad table Results Lab Laboratory Tests 10/19/16 20:17: Glucometer 192H 10/20/16 06:18: White Blood Count 6.1, Red Blood Count 4.59, Hemoglobin 13.4, Hematocrit 41, Mean Corpuscular Volume 89, Mean Corpuscular Hemoglobin 29, Mean Corpuscular Hemoglobin Concent 33, Red Cell Distribution Width 15.9H, Platelet Count 259, Mean Platelet Volume 9.0, Neutrophils (%) (Auto) 62, Lymphocytes (%) (Auto) 21, Monocytes (%) (Auto) 12, Eosinophils (%) (Auto) 4, Basophils (%) (Auto) 1, Neutrophils # (Auto) 3.8, Lymphocytes # (Auto) 1.3, Monocytes # (Auto) 0.7, Eosinophils # (Auto) 0.3, Basophils # (Auto) 0.0 10/20/16 06:30: Glucometer 162H 10/20/16 06:48: Sodium Level 139, Potassium Level 4.0, Chloride Level 103, Carbon Dioxide Level 25, Anion Gap 11, Blood Urea Nitrogen 22H, Creatinine 0.69, Estimat Glomerular Filtration Rate > 60, BUN/Creatinine Ratio 32H, Glucose Level 175H, Calcium Level 9.8, Total Bilirubin 1.0, Aspartate Amino Transf (AST/SGOT) 16, Alanine Aminotransferase (ALT/SGPT) 21, Alkaline Phosphatase 53, Total Protein 6.8, Albumin 3.5 10/20/16 10:42: Glucometer 172H Assessment/Plan Assessment/Plan Assessment/Plan 1. Diabetic foot ulcer, R foot, now healed. 2. Spinal stenosis, cervical. HERMANN ZHONG MD Oct 20, 2016 16:15
[2016-10-20 18:03] VITALS: BP 131/82
[2016-10-20] MEDS: POLYETHYLENE GLYCOL 17 GM (MIRALAX) PACK PO SCH (20:28)
[2016-10-20] MEDS ORDERED: metFORMIN 500 MG (GLUCOPHAGE) TAB PO SCH (21:00)
[2016-10-20] MEDS ORDERED: RX-TRAMADOL 50 MG (ULTRAM) TAB PPK#4 PO SCH (21:00)
[2016-10-20] MEDS ORDERED: VERAPAMIL HCL 40 MG PO SCH (21:00)
--- NOTE | 2016-10-20 21:43 | PM & R (SOAP) Progress Note ---
Subjective Time Seen by Provider: 08:15 Subjective/Events-last exam Patient was seen in his room earlier today Appreciate DR Ceja and Rosanne nopte and current labs as well as Therapy notes Patient adjusting well to unit.Pharm D reviewed patients home insulin management Orders/meds adjusted. Review of Systems Musculoskeletal: neck pain Objective Exam Last Set of Vital Signs Vital Signs Date Time Temp Pulse Resp B/P (MAP) Pulse Ox O2 Delivery O2 Flow Rate FiO2 10/20/16 18:03 97.9 99 18 131/82 98 Room Air Capillary Refill : Less Than 3 Seconds I&O Bad tableGeneral: Alert, Oriented X3, Cooperative, No Acute Distress HEENT: Atraumatic, PERRLA, EOMI, Mucous Memb Moist/[place]: Other (Rigid C collar in place [place] dressing dry and intact) Lungs: Clear to Auscultation Heart: Regular Rate Abdomen: Normal Bowel Sounds, Soft, No Tenderness Extremities: No Edema Skin: Other (incusion coverered/Rt heel diabetic ulcer heeled as per DR Finch) Neuro: Other (Decreased sensation in feet and numbness in hands Weak rt wrist and hand extensors and 3-/5 strength in legs) Results Lab Laboratory Tests 10/19/16 20:17: Glucometer 192H 10/20/16 06:18: White Blood Count 6.1, Red Blood Count 4.59, Hemoglobin 13.4, Hematocrit 41, Mean Corpuscular Volume 89, Mean Corpuscular Hemoglobin 29, Mean Corpuscular Hemoglobin Concent 33, Red Cell Distribution Width 15.9H, Platelet Count 259, Mean Platelet Volume 9.0, Neutrophils (%) (Auto) 62, Lymphocytes (%) (Auto) 21, Monocytes (%) (Auto) 12, Eosinophils (%) (Auto) 4, Basophils (%) (Auto) 1, Neutrophils # (Auto) 3.8, Lymphocytes # (Auto) 1.3, Monocytes # (Auto) 0.7, Eosinophils # (Auto) 0.3, Basophils # (Auto) 0.0 10/20/16 06:30: Glucometer 162H 10/20/16 06:48: Sodium Level 139, Potassium Level 4.0, Chloride Level 103, Carbon Dioxide Level 25, Anion Gap 11, Blood Urea Nitrogen 22H, Creatinine 0.69, Estimat Glomerular Filtration Rate > 60, BUN/Creatinine Ratio 32H, Glucose Level 175H, Calcium Level 9.8, Total Bilirubin 1.0, Aspartate Amino Transf (AST/SGOT) 16, Alanine Aminotransferase (ALT/SGPT) 21, Alkaline Phosphatase 53, Total Protein 6.8, Albumin 3.5 10/20/16 10:42: Glucometer 172H 10/20/16 16:33: Glucometer 84 10/20/16 20:22: Glucometer 200H Assessment/Plan Assessment S/P decompression Cervical Spine stenosis with myelopathy DM meds being adjusted Rt heel diabetic ulcer healed AMY on cpap HTN controlled Plan Continue PT/OT Team Conference tomorrow F/u with Dr Eloina Finch and [place] prn Adjust diabetic meds as needed Rigid C collar on at all times except when eating as OKD by JOSEY Landaverde MD Oct 20, 2016 21:43
[2016-10-21] MEDS: HYDROcodone/APAP 10 MG/325 MG (LORTAB) TAB PO PRN ×5 (02:52→21:51)
[2016-10-21 06:00] VITALS: BP 129/80
[2016-10-21] MEDS: MULTIVIT W/MINERALS TAB (THERAGRAN M) PO SCH (06:47)
[2016-10-21] MEDS: metFORMIN 500 MG (GLUCOPHAGE) TAB PO SCH ×2 (06:47→17:56)
[2016-10-21] MEDS: inSUlin (REGULAR) HUMAN 1 UNIT/0.01 ML (CHARGE PER UNIT) SC SCH ×3 (06:48→19:48)
--- NOTE | 2016-10-21 07:26 | PM & R (SOAP) Progress Note ---
Subjective Time Seen by Provider: 07:10 Subjective/Events-last exam Patient was seen in his room earlier today.Patient Viraj blackmanist for transfers Patient has areas of induration on abdomen from multiple Insulin injections.Pain control adequate Objective Exam Last Set of Vital Signs Vital Signs Date Time Temp Pulse Resp B/P (MAP) Pulse Ox O2 Delivery O2 Flow Rate FiO2 10/21/16 06:00 98.2 95 18 129/80 95 NIV Bilevel Capillary Refill : Less Than 3 Seconds I&O Intake and Output 10/21/16 00:00 Intake Total 1670 ml Output Total 2050 ml Balance -380 ml Intake Oral 1670 ml Output Urine Total 2050 ml # Bowel Movements 1 General: Alert, Oriented X3, Cooperative, No Acute Distress HEENT: Atraumatic, PERRLA, EOMI, Mucous Memb Moist/[place]ck: Other (Rigid C collar in place [place] dressing dry and intact) Lungs: Clear to Auscultation Heart: Regular Rate Abdomen: Normal Bowel Sounds, Soft, No Tenderness Extremities: No Edema Skin: Other (incusion coverered/Rt heel diabetic ulcer heeled as per DR Finch) Neuro: Other (Decreased sensation in feet and numbness in hands Weak rt wrist and hand extensors and 3-/5 strength in legs) Results Lab Laboratory Tests 10/19/16 20:17: Glucometer 192H 10/20/16 06:18: White Blood Count 6.1, Red Blood Count 4.59, Hemoglobin 13.4, Hematocrit 41, Mean Corpuscular Volume 89, Mean Corpuscular Hemoglobin 29, Mean Corpuscular Hemoglobin Concent 33, Red Cell Distribution Width 15.9H, Platelet Count 259, Mean Platelet Volume 9.0, Neutrophils (%) (Auto) 62, Lymphocytes (%) (Auto) 21, Monocytes (%) (Auto) 12, Eosinophils (%) (Auto) 4, Basophils (%) (Auto) 1, Neutrophils # (Auto) 3.8, Lymphocytes # (Auto) 1.3, Monocytes # (Auto) 0.7, Eosinophils # (Auto) 0.3, Basophils # (Auto) 0.0 10/20/16 06:30: Glucometer 162H 10/20/16 06:48: Sodium Level 139, Potassium Level 4.0, Chloride Level 103, Carbon Dioxide Level 25, Anion Gap 11, Blood Urea Nitrogen 22H, Creatinine 0.69, Estimat Glomerular Filtration Rate > 60, BUN/Creatinine Ratio 32H, Glucose Level 175H, Calcium Level 9.8, Total Bilirubin 1.0, Aspartate Amino Transf (AST/SGOT) 16, Alanine Aminotransferase (ALT/SGPT) 21, Alkaline Phosphatase 53, Total Protein 6.8, Albumin 3.5 10/20/16 10:42: Glucometer 172H 10/20/16 16:33: Glucometer 84 10/20/16 20:22: Glucometer 200H 10/21/16 06:47: Glucometer 161H Assessment/Plan Assessment S/P decompression Cervical Spine stenosis with myelopathy DM meds adjusted Rt heel diabetic ulcer healed AMY on cpap HTN controlled Plan Continue PT/OT/Pain management F/u with Dr Eloina Finch and [place] prn Adjust diabetic meds as needed Rigid C collar on at all times except when eating as OKD by DR Atkinson Team Conference later today See report for full functional update and POC and JOSEY TUBBS MD Oct 21, 2016 07:25
--- NOTE | 2016-10-21 07:35 | Individualized Plan of Care ---
Individualized Plan of Care Rehab Nursing IPOC Order Admission Date Oct 19, 2016 at 16:34 Current Orders Orders Wound Care Physician Consult (10/20/16 09:25) Hydrochlorothiazide Cap/Tablet (Hctz Cap (10/21/16 09:00) Insulin (Regular) Human (Humulin R (Per (10/20/16 11:00) Celecoxib Capsule (Celebrex Capsule) (10/21/16 09:00) (Nf) Vitamin B Complex (B Complex) (10/21/16 09:00) Lactulose Oral Solution (Enulose Oral So (10/20/16 10:45) Polyethylene Glycol Powder Pkt (Miralax (10/20/16 21:00) Patient Visit (10/20/16 ) Speech Sound Lang Comp (10/20/16 ) Patient Visit (10/20/16 ) Pt Eval Moderate Complexity (10/20/16 ) Wheelchair Mgmt/Propulsn 15min (10/20/16 ) Functional Activities, Ea 15 (10/20/16 ) Advanced Wound Care Dressing O WEEK (10/20/16 16:10) Rehab Nursing Orders: Diseage Management, Edu in Press Rel Techn, Hydration Management, Nutrition Management, Pain Management Toilet every (bladder): (hrs): 2 hours while awake prn PT IPOC Problem List: Activity Tolerance, Functional Strength, Safety, Balance, Gait, Transfer, Bed Mobility, ROM Treatment Plan: Continue Plan of Care Bed Mobility, Education, Functional Activity Fady, Functional Strength, Group Therapy, Gait, Safety, Therapeutic Exercise, Transfers Treatment Duration: Nov 10, 2016 Visits Per Week: 10-11 Minutes/Day (M-F): 60-90 Minutes/Day (Sat/Cotter): 15-30 OT IPOC Problems: Decreased Activ Tolerance, Decreased UE Strength, Dependent Transfers , Impaired Bed Mobility, Impaired Coordination, Impaired Funct Balance, Impaired Self-Care Skills, Restricted Funct UE ROM OT Problems Pt would benefit from skilled OT to increase her independence in basic self care to allow him to safely return to his home and decrease caregiver burden Plan of Care: ADL Retraining, Functional Mobility, Group Exercise/Act as Ind ( education, exercise, activity tolerance, functional activities, coordination), UE Funct Exercise/Act, UE Neuromus Re-Ed/Coord, W/C Management Training Treatment Duration: Nov 17, 2016 Visits Per Week: 10-11 Minutes/Day (M-F): 75-90 Minutes/Day (Sat/Cotter): PRN ST IPOC Speech Therapy Treatment Plan: Discontinue ST Physician IPOC Medical Issues being managed closely and that require the 24 hour availability of a physician:Management of pain and DM and diabetic heel ulcer Medical Issues: Bowel/Bladder Function, DVT Prophylaxis, Falls Precautions, Fluid/Electrolyte/Nutrition Balance, Infection Protection, Pain Management, Weight Bearing Precautions, Wound Care, Other (List) (As per above) Brief Synthesis of Preadmission Screen, Post-Admission Evaluation, and Therapy Evaluations: 61 yo unemployed male who lives alone who has had a decline in functional [place] due ti C Spins stenosis with cord compression with with resulting pain and myelopathy. Had decompression surgery with DR Atkinson referred to [facility]U for Therapies prior to discharge to home with [facility] Meds for DM being adjusted By DR juarez. DR Finch has seen for Diabetic foot ulcer rt heel.Paatient is to wear a rigid cervical collar at all times except when eating. Medical Prognosis: good Anticipated Length of Stay: 11/10/16 Rehab Goals Modified [place] for adls and mobility skills with decreased pain and improved strength Anticipated discharge destinat: Home with [facility] JOSEY SALINAS MD Oct 21, 2016 07:35
[2016-10-21] MEDS: LACTULOSE SYRUP 10GM/15ML (ENULOSE) 30ML UDC PO SCH ×2 (08:18→19:24)
[2016-10-21] MEDS: CELECOXIB 100 MG (CeleBREX) CAP PO SCH (08:19)
[2016-10-21] MEDS: VERAPAMIL 80 MG (ISOPTIN) TAB PO SCH ×2 (08:20→20:19)
[2016-10-21] MEDS: HYDROCHLOROTHIAZIDE 25 MG (HCTZ) TAB PO SCH (08:21)
[2016-10-21] MEDS: SENNA W/DOCUSATE (SENOKOT S) TABLET PO SCH ×2 (08:21→19:24)
[2016-10-21] MEDS: POLYETHYLENE GLYCOL 17 GM (MIRALAX) PACK PO SCH ×2 (08:21→19:24)
[2016-10-21] MEDS ORDERED: VITAMIN B COMPLEX PO SCH (09:00)
[2016-10-21] MEDS ORDERED: MULTIVITAMINS PO SCH (09:00)
[2016-10-21] MEDS ORDERED: HYDROCHLOROTHIAZIDE 25 MG (HCTZ) TAB PO SCH (09:00)
--- NOTE | 2016-10-21 10:48 | Physical Therapy Daily Note ---
PT Daily Note-Current Subjective Patient on commode pre tx, has had a BM, needs to be cleaned and shorts pulled up and put in power chair. Patient has 6/10 pain in neck and left hip. Appearance Patient in power chair post tx, he is mod I with wheelchair mobility. Mental Status Patient Orientation: Normal For Age cervical collar Transfers Functional [place] Measure 0=Not Assessed/NA 4=Minimal Assistance 1=Total Assistance 5=Supervision or Setup 2=Maximal Assistance 6=Modified [place] 3=Moderate Assistance 7=Complete IndependenceIRFPAI Quality Coding Scale 6 Independent with activity with or without an assistive device 5 Patient requires set up or clean up by helper. Patient completes activity by themselves 4 Supervision or touching assist (CGA). [place] provide cues , steadying assist 3 The helper provides less than half the effort to complete the activity 2 The helper provides more than half the effort to complete the activity 1 Dependent. The helper does all the effort to complete an activity 7 Patient refused to complete or attempt activity 9 The patient did not perform the activity before the current illness or injury 88 Not attempted due to Medical conditions or safety concerns Transfers (B, C, W/C) (FIM): 2 Sit to/from Stand: 2 Patient is not able to help much with his arms due to weakness. Patient had to stand a couple of times to get cleaned and dressed and put in the power chair. Wheelchair Training Wheelchair (FIM): 6 Distance: 200'x2 Type of Wheelchair: Motorized Exercises LAQ alternating for 5 min, patient performed 3 sets of 10 of manually resisted leg press, stood in the parallel bars x3 with max assist for 1-2 minutes each time Treatments transfers, wheelchair mobility, functional strengthening Assessment Current Status: Fair Progress improved standing, mod I with wheelchair mobility PT Short Term Goals Short Term Goals Time Frame: Oct 27, 2016 Gait (FIM): 1 Gait Distance Comment: 8' Gait Level of Assist: 3 Wheelchair (FIM): 6 Wheelchair Distance: 3000' PT Assisted Goals Assisted Goals PT Assisted Goals Time Frame: Nov 10, 2016 Transfers (B,C,W/C) (FIM): 4 Sit to Lying (QC): 3 Lying-Sitting on Side/Bed(QC): 3 Sit to Stand (QC): 3 Rollin Roll Left to Right (QC): 3 Chair/Ndb-ue-Nrfcl Xfer(QC): 3 Car Transfer (QC): 3 Gait (FIM): 1 Distance: 20' Walk 10 feet (QC): 3 Walk 10ft-Uneven Surface(QC): 88 Walk 50ft with 2 Turns (QC): 88 Walk 150 ft (QC): 88 Gait Level of Assist: 4 Gait Assistive Device: FWW Wheelchair (FIM): 6 Distance: 500' Wheel 50 feet with 2 turns (QC: 6 PT Plan Problem List Problem List: Activity Tolerance, Functional Strength, Safety, Balance, Gait, Transfer, Bed Mobility, ROM Treatment/Plan Treatment Plan: Continue Plan of Care Treatment Plan: Bed Mobility, Education, Functional Activity Fady, Functional Strength, Group Therapy, Gait, Safety, Therapeutic Exercise, Transfers Treatment Duration: Nov 10, 2016 Visits Per Week: 10-11 Minutes/Day (M-F): 60-90 Minutes/Day (Sat/Cotter): 15-30 Safety Risks/Education Patient Education: Transfer Techniques, Correct Positioning, W/C Management, Safety Issues Teaching Recipient: Patient Teaching Methods: Demonstration, Discussion Response to Teaching: Reinforcement Needed Time/GCodes Time In: 945 Time Out: 1045 Total Billed Treatment Time: 60 Total Billed Treatment 1 visit EX 15' FA 45' CATALINA RUBI PT Oct 21, 2016 10:47
--- NOTE | 2016-10-21 11:04 | Occupational Ther Daily Note ---
OT Current Status-Daily Note Subjective Pt seen in room, up in bed, agreeable to OT. No pain mentioned. Appearance Alert, cooperative. Participates in tx planning and implementation Mental Status/Objective Functional [place] Measure 0=Not Assessed/NA 4=Minimal Assistance 1=Total Assistance 5=Supervision or Setup 2=Maximal Assistance 6=Modified [place] 3=Moderate Assistance 7=Complete [place] ADL-Treatment Pt also used shower chair for having BM. Mostly dressed and on shower chair/ commode when care transferred to PT. Cervical collar on. Functional [place] Measure 0=Not Assessed/NA 4=Minimal Assistance 1=Total Assistance 5=Supervision or Setup 2=Maximal Assistance 6=Modified [place] 3=Moderate Assistance 7=Complete IndependenceIRFPAI Quality Coding Scale 6 Independent with activity with or without an assistive device 5 Patient requires set up or clean up by helper. Patient completes activity by themselves 4 Supervision or touching assist (CGA). [place] provide cues , steadying assist 3 The helper provides less than half the effort to complete the activity 2 The helper provides more than half the effort to complete the activity 1 Dependent. The helper does all the effort to complete an activity 7 Patient refused to complete or attempt activity 9 The patient did not perform the activity before the current illness or injury 88 Not attempted due to Medical conditions or safety concerns Bathing (FIM): 3 (Pt was in shower chair in shower room, feet on floor. Able to get body wet and wash arms (almost was able to do L arm pit with R hand), chest, abdomen, thighs. Unable to get in kaleb area in front, lower legs, bottom. Help washing hair with dandruff shampoo. Dried same areas. pt was able to lift lower legs to get them washed. R heel dressing covered in plastic to keep it dry.) Bathing Location: L Arm, R Arm, L Upper Leg, R Upper Leg, Chest, Abdomen Upper Body (FIM): 3 (Mod assist doffing and donning shirt) Lower Body Dressing (FIM): 1 (Unabe to doff or don slipper socks or shoes. Able to pick feet up to put them in pants legs. Two people required to stand him and pull pants up (see PT note)) Toileting (FIM): 1 (Unable to manage clothing and hygiene. Needs help positioning urinal and it frequently spills, per pt report) Transfers (B, C, W/C) (FIM): 1 (Mod assist from supine to EOB but could maintain sitting. One person transfer using sit to stand lift to shower chair ( second person managing shower chair.) Shower Transfer(FIM): 1 (One person to transfer him with sit to stand lift and one person to manage shower chair. One person to transport chair to shower room. ) Education OT Patient Education: Modified ADL techniques, Progress toward Goal/Update tx plan, Purpose of tx/functional activities, Transfer techniques Teaching Recipient: Patient Teaching Methods: Discussion Response to Teaching: Verbalize Understanding OT Short Term Goals Short Term Goals Time Frame: Nov 03, 2016 Eating(FIM): 5 Grooming(FIM): 5 Upper Body Dressing(FIM): 4 Toileting(FIM): 2 Toilet/Commode Transfer(FIM): 3 Additional Short Term Goals: 1-Demonstrate ADL Tasks, 2-Verbalize Understanding , 3-ImproveStrength/Fady 1=Demonstrate adherence to instructed precautions during ADL tasks. 2=Patient will verbalize/demonstrate understanding of assistive devices/ modifications for ADL. 3=Patient will improve strength/tolerance for activity to enable patient to perform ADL's. OT Skilled Nursing Goals Skilled Nursing Goals Time Frame: Nov 17, 2016 Eating (FIM): 6 Eating (QC): 6 Groomin Oral Hygiene (QC): 6 Bathing(FIM): 5 (SBA, supervision) Shower/Bathe Self (QC): 4 Upper Body Dressing(FIM): 5 Upper Body Dressing (QC): 5 Lower Body Dressing(FIM): 5 Lower Body Dressing (QC): 4 On/Off Footwear (QC): 4 Toileting(FIM): 5 Toileting Hygiene (QC): 4 Toilet/Commode Transfer(FIM): 5 Toilet/Commode Transfer (QC): 4 Shower Transfer(FIM): 5 Additional Goals: 1-Demonstrate ADL Tasks, 2-Verbalize Understanding, 3- ImproveStrength/Fady 1=Demonstrate adherence to instructed precautions during ADL tasks. 2=Patient will verbalize/demonstrate understanding of assistive devices/ modifications for ADL. 3=Patient will improve strength/tolerance for activity to enable patient to perform ADL's. OT Education/Plan Problem List/Assessment Pt would benefit from skilled OT to increase her independence in basic self care to allow him to safely return to his home and decrease caregiver burden Discharge Recommendations Plan/Recommendations: Continue POC Treatment Plan/Plan of Care Patient would benefit from OT for education, treatment and training to promote independence in ADL's, mobility, safety and/or upper extremity function for ADL' s. Plan of Care: ADL Retraining, Functional Mobility, Group Exercise/Act as Ind ( education, exercise, activity tolerance, functional activities, coordination), UE Funct Exercise/Act, UE Neuromus Re-Ed/Coord, W/C Management Training Treatment Duration: Nov 17, 2016 Visits Per Week: 10-11 Minutes/Day (M-F): 75-90 Minutes/Day (Sat/Cotter): PRN Agreement: Yes Rehab Potential: Fair Time/GCodes Start Time: 08:45 Stop Time: 09:45 Total Time Billed (hr/min): 60 Billed Treatment Time visit, 60 minutes ADL THAI HOOVER OT Oct 21, 2016 11:04
--- NOTE | 2016-10-21 14:50 | Occupational Ther Daily Note ---
OT Current Status-Daily Note Subjective Pt seen in room, up in power chair, dozing. Agreeable to OT. Mental Status/Objective Functional [place] Measure 0=Not Assessed/NA 4=Minimal Assistance 1=Total Assistance 5=Supervision or Setup 2=Maximal Assistance 6=Modified [place] 3=Moderate Assistance 7=Complete [place] ADL-Treatment Functional [place] Measure 0=Not Assessed/NA 4=Minimal Assistance 1=Total Assistance 5=Supervision or Setup 2=Maximal Assistance 6=Modified [place] 3=Moderate Assistance 7=Complete IndependenceIRFPAI Quality Coding Scale 6 Independent with activity with or without an assistive device 5 Patient requires set up or clean up by helper. Patient completes activity by themselves 4 Supervision or touching assist (CGA). [place] provide cues , steadying assist 3 The helper provides less than half the effort to complete the activity 2 The helper provides more than half the effort to complete the activity 1 Dependent. The helper does all the effort to complete an activity 7 Patient refused to complete or attempt activity 9 The patient did not perform the activity before the current illness or injury 88 Not attempted due to Medical conditions or safety concerns Eating (FIM): 5 (Pt was able to feed himself with setup, using fork and spoon with built-up handles. Needs to be positioned so food is close to him. has some difficulty grasping cups so tried Rudi cup with lid and straw. he was able to pick it up with his R hand, L hand assisting, and get a drink, as well as place it back on the table. Pt pleased with being able to feed himself) Grooming (FIM): 4 (He was able to brush his teeth with minimal setup, using builtup handle on toothbrush. He used his teeth to take cap off, then squeezed toothpaste with R hand. Needed help to comb his hair. Did not shave today. Face and hands washed in shower earlier today) Other Treatment Pt operated power chair to take himself to the gym. R shoulder flexion - when actively attempting flex, he pulls into abduction. Range about 60 degrees active, 80 degrees passive R elbow AROM WFL Strength 4/5 flex, 3+/5 extension Pron/sup WFL Wrist extension - active WFL when gravity eliminated 3/5, slight movement against gravity 2/5 Finger ext - in midrange. Can extend with increased range when gravity eliminated. Finger flex - grossly WFL range Thumb has flex, abd, ext Intrinsics - impaired L shoulder flex/abd - WFL active range, 4/5 strength L elbow - WFL range, 4/5 strength Pron/sup WFL Wrist flex and ext 3+/5 to 4-/5 Wrist flex grossly WFL range Thumb has flex,abd, ext. Filter Washer strength: L 13, 14, 15 lb (average 14 lb) R 5, 5, 4 lb(average 4.7 lb) Pinch L R lateral 9 3 # jaw sara 2 2 Tip 2 2 Pt responded visibly to skilled facilitation to wrist extensors. Pt educ on tenodesis function in hands and how his hand position affects strength on R side. Pt verbalized understanding. Pt took himself back to his room, per power chair. OT Short Term Goals Short Term Goals Time Frame: Nov 03, 2016 Eating(FIM): 5 Grooming(FIM): 5 Upper Body Dressing(FIM): 4 Toileting(FIM): 2 Toilet/Commode Transfer(FIM): 3 Additional Short Term Goals: 1-Demonstrate ADL Tasks, 2-Verbalize Understanding , 3-ImproveStrength/Fady 1=Demonstrate adherence to instructed precautions during ADL tasks. 2=Patient will verbalize/demonstrate understanding of assistive devices/ modifications for ADL. 3=Patient will improve strength/tolerance for activity to enable patient to perform ADL's. OT Qa Specialist Goals Mcc Goals Time Frame: Nov 17, 2016 Eating (FIM): 6 Eating (QC): 6 Groomin Oral Hygiene (QC): 6 Bathing(FIM): 5 (SBA, supervision) Shower/Bathe Self (QC): 4 Upper Body Dressing(FIM): 5 Upper Body Dressing (QC): 5 Lower Body Dressing(FIM): 5 Lower Body Dressing (QC): 4 On/Off Footwear (QC): 4 Toileting(FIM): 5 Toileting Hygiene (QC): 4 Toilet/Commode Transfer(FIM): 5 Toilet/Commode Transfer (QC): 4 Shower Transfer(FIM): 5 Additional Goals: 1-Demonstrate ADL Tasks, 2-Verbalize Understanding, 3- ImproveStrength/Fady 1=Demonstrate adherence to instructed precautions during ADL tasks. 2=Patient will verbalize/demonstrate understanding of assistive devices/ modifications for ADL. 3=Patient will improve strength/tolerance for activity to enable patient to perform ADL's. OT Education/Plan Problem List/Assessment Pt would benefit from skilled OT to increase her independence in basic self care to allow him to safely return to his home and decrease caregiver burden Discharge Recommendations Plan/Recommendations: Continue POC Treatment Plan/Plan of Care Patient would benefit from OT for education, treatment and training to promote independence in ADL's, mobility, safety and/or upper extremity function for ADL' s. Plan of Care: ADL Retraining, Functional Mobility, Group Exercise/Act as Ind ( education, exercise, activity tolerance, functional activities, coordination), UE Funct Exercise/Act, UE Neuromus Re-Ed/Coord, W/C Management Training Treatment Duration: Nov 17, 2016 Visits Per Week: 10-11 Minutes/Day (M-F): 75-90 Minutes/Day (Sat/Cotter): PRN Agreement: Yes Rehab Potential: Fair Time/GCodes Start Time: 12:30 Stop Time: 13:05 Total Time Billed (hr/min): 35 Billed Treatment Time Also 12:00 to 12:05 20 minutes ADL, 20 minutes neuromotor, visit THAI HOOVER OT Oct 21, 2016 14:50
--- NOTE | 2016-10-21 16:56 | Physical Therapy Daily Note ---
PT Daily Note-Current Subjective Pt sitting in [facility] upon arrival. Pt reports needing to use BSC. Pt agrees to PT. Mental Status Patient Orientation: Person, Place, Time, Situation Transfers Functional [place] Measure 0=Not Assessed/NA 4=Minimal Assistance 1=Total Assistance 5=Supervision or Setup 2=Maximal Assistance 6=Modified [place] 3=Moderate Assistance 7=Complete IndependenceIRFPAI Quality Coding Scale 6 Independent with activity with or without an assistive device 5 Patient requires set up or clean up by helper. Patient completes activity by themselves 4 Supervision or touching assist (CGA). [place] provide cues , steadying assist 3 The helper provides less than half the effort to complete the activity 2 The helper provides more than half the effort to complete the activity 1 Dependent. The helper does all the effort to complete an activity 7 Patient refused to complete or attempt activity 9 The patient did not perform the activity before the current illness or injury 88 Not attempted due to Medical conditions or safety concerns Scootin Rollin Roll Left to Right (QC): 1 Supine to/from Sit: 1 Sit to/from Stand: 1 Sit to Lying (QC): 1 Sit to Stand (QC): 1 Chair/Uxw-dq-Csncl Xfer(QC): 1 Bed to/from Chair: 1 Weight Bearing Weight Bearing Restriction: Full Weight Bearing Location Restriction: LE Bilateral Wheelchair Training Does the Pt Use a Wheelchair?: Yes Type of Wheelchair: Motorized Exercises Supine Ex: Ankle pumps, Quad Set, Heel Slides, Straight leg raise, Hip abd/add Supine Reps: 10 Treatments PT uses Sit to Stand Lift to transfer pt from [facility] [place] [facility] After pt is finished using, staff assists with kaleb care. Pt is then transferred [place] [facility] [place] [facility] via Lift. Pt transfers from EOB to Supine and completes Supine Ex in bed. PT assists pt with positioning and scooting up in bed. Pt remains Supine in bed at end of tx with all needs met. Assessment Current Status: Fair Progress Pt remains dependent for transfers at this time and staff uses Sit to Stand Lift to transfer. PT Short Term Goals Short Term Goals Time Frame: Oct 27, 2016 Gait (FIM): 1 Gait Distance Comment: 8' Gait Level of Assist: 3 Wheelchair (FIM): 6 Wheelchair Distance: 200'x2 PT Frozen Meat Cutter Goals Frozen Meat Cutter Goals PT Frozen Meat Cutter Goals Time Frame: Nov 10, 2016 Transfers (B,C,W/C) (FIM): 4 Sit to Lying (QC): 3 Lying-Sitting on Side/Bed(QC): 3 Sit to Stand (QC): 3 Rollin Roll Left to Right (QC): 3 Chair/Czc-ci-Agsos Xfer(QC): 3 Car Transfer (QC): 3 Gait (FIM): 1 Distance: 20' Walk 10 feet (QC): 3 Walk 10ft-Uneven Surface(QC): 88 Walk 50ft with 2 Turns (QC): 88 Walk 150 ft (QC): 88 Gait Level of Assist: 4 Gait Assistive Device: FWW Wheelchair (FIM): 6 Distance: 500' Wheel 50 feet with 2 turns (QC: 6 PT Plan Problem List Problem List: Activity Tolerance, Functional Strength, Safety, Balance, Gait, Transfer, Bed Mobility, ROM Treatment/Plan Treatment Plan: Continue Plan of Care Treatment Plan: Bed Mobility, Education, Functional Activity Fady, Functional Strength, Group Therapy, Gait, Safety, Therapeutic Exercise, Transfers Treatment Duration: Nov 10, 2016 Visits Per Week: 10-11 Minutes/Day (M-F): 60-90 Minutes/Day (Sat/Cotter): 15-30 Safety Risks/Education Patient Education: Transfer Techniques, Correct Positioning, Safety Issues Teaching Recipient: Patient Teaching Methods: Discussion Response to Teaching: Verbalize Understanding Time/GCodes Time In: 1400 Time Out: 1440 Total Billed Treatment Time: 40 Total Billed Treatment visit, EX (15m) & FA x2 (25m) GILA CRYSTAL WATER POLLUTION CONTROL INSPECTOR Oct 21, 2016 16:56
[2016-10-21 17:57] VITALS: BP 126/83
[2016-10-22] MEDS: HYDROcodone/APAP 10 MG/325 MG (LORTAB) TAB PO PRN ×5 (03:11→20:34)
[2016-10-22 05:19] VITALS: BP 128/79
[2016-10-22] MEDS: MULTIVIT W/MINERALS TAB (THERAGRAN M) PO SCH (06:17)
[2016-10-22] MEDS: metFORMIN 500 MG (GLUCOPHAGE) TAB PO SCH ×2 (06:17→16:39)
[2016-10-22] MEDS: inSUlin (REGULAR) HUMAN 1 UNIT/0.01 ML (CHARGE PER UNIT) SC SCH ×3 (07:23→20:01)
[2016-10-22] MEDS: CELECOXIB 100 MG (CeleBREX) CAP PO SCH (08:13)
[2016-10-22] MEDS: HYDROCHLOROTHIAZIDE 25 MG (HCTZ) TAB PO SCH (08:13)
[2016-10-22] MEDS: VERAPAMIL 80 MG (ISOPTIN) TAB PO SCH ×2 (08:13→20:34)
[2016-10-22] MEDS: LACTULOSE SYRUP 10GM/15ML (ENULOSE) 30ML UDC PO SCH ×2 (09:04→19:13)
[2016-10-22] MEDS: POLYETHYLENE GLYCOL 17 GM (MIRALAX) PACK PO SCH ×2 (09:04→19:13)
[2016-10-22] MEDS: SENNA W/DOCUSATE (SENOKOT S) TABLET PO SCH ×2 (09:05→19:13)
--- NOTE | 2016-10-22 10:40 | PM & R (SOAP) Progress Note ---
Subjective Time Seen by Provider: 08:15 Subjective/Events-last exam Patient was seen in his room this AM.Patient max assist for transfers.Patient using Lortab for pain control. Objective Exam Last Set of Vital Signs Vital Signs Date Time Temp Pulse Resp B/P (MAP) Pulse Ox O2 Delivery O2 Flow Rate FiO2 10/22/16 09:28 Room Air 10/22/16 05:19 98.0 98 20 128/79 96 Capillary Refill : Less Than 3 Seconds I&O Intake and Output 10/22/16 00:00 Intake Total 1250 ml Output Total 1100 ml Balance 150 ml Intake Oral 1250 ml Output Urine Total 1100 ml # Bowel Movements 2 General: Alert, Oriented X3, Cooperative, No Acute Distress HEENT: Atraumatic, PERRLA, EOMI, Mucous Memb Moist/[place] Neck: Other (Rigid C collar in place [place] dressing dry and intact) Lungs: Clear to Auscultation Heart: Regular Rate Abdomen: Normal Bowel Sounds, Soft, No Tenderness Extremities: No Edema Skin: Other (incusion coverered/Rt heel diabetic ulcer heeled as per DR Finch) Neuro: Other (Decreased sensation in feet and numbness in hands Weak rt wrist and hand extensors and 3-/5 strength in legs) Results Lab Laboratory Tests 10/19/16 20:17: Glucometer 192H 10/20/16 06:18: White Blood Count 6.1, Red Blood Count 4.59, Hemoglobin 13.4, Hematocrit 41, Mean Corpuscular Volume 89, Mean Corpuscular Hemoglobin 29, Mean Corpuscular Hemoglobin Concent 33, Red Cell Distribution Width 15.9H, Platelet Count 259, Mean Platelet Volume 9.0, Neutrophils (%) (Auto) 62, Lymphocytes (%) (Auto) 21, Monocytes (%) (Auto) 12, Eosinophils (%) (Auto) 4, Basophils (%) (Auto) 1, Neutrophils # (Auto) 3.8, Lymphocytes # (Auto) 1.3, Monocytes # (Auto) 0.7, Eosinophils # (Auto) 0.3, Basophils # (Auto) 0.0 10/20/16 06:30: Glucometer 162H 10/20/16 06:48: Sodium Level 139, Potassium Level 4.0, Chloride Level 103, Carbon Dioxide Level 25, Anion Gap 11, Blood Urea Nitrogen 22H, Creatinine 0.69, Estimat Glomerular Filtration Rate > 60, BUN/Creatinine Ratio 32H, Glucose Level 175H, Calcium Level 9.8, Total Bilirubin 1.0, Aspartate Amino Transf (AST/SGOT) 16, Alanine Aminotransferase (ALT/SGPT) 21, Alkaline Phosphatase 53, Total Protein 6.8, Albumin 3.5 10/20/16 10:42: Glucometer 172H 10/20/16 16:33: Glucometer 84 10/20/16 20:22: Glucometer 200H 10/21/16 06:47: Glucometer 161H 10/21/16 11:09: Glucometer 109 10/21/16 16:31: Glucometer 98 10/21/16 21:49: Glucometer 132H 10/22/16 06:16: Glucometer 106 Assessment/Plan Assessment S/P decompression Cervical Spine stenosis with myelopathy DM meds adjusted Rt heel diabetic ulcer healed AMY on cpap HTN controlled Plan Continue PT/OT/Pain management F/u with Dr Duvall and Stef and [place] prn Adjust diabetic meds as needed Rigid C collar on at all times except when eating as OKD by DR Atkinson Team Conference held yesterday- See report for full functional update and POC and JOSEY TUBBS MD Oct 22, 2016 10:40
--- NOTE | 2016-10-22 10:45 | Physical Therapy Daily Note ---
PT Daily Note-Current Subjective Patient in power chair pre tx, agrees to PT, has pain of 5/10 in neck and left hip and knee. Appearance Patient in power chair post tx, he is mod I with wheelchair mobility. Mental Status Patient Orientation: Normal For Age cervical collar Transfers Functional [place] Measure 0=Not Assessed/NA 4=Minimal Assistance 1=Total Assistance 5=Supervision or Setup 2=Maximal Assistance 6=Modified [place] 3=Moderate Assistance 7=Complete IndependenceIRFPAI Quality Coding Scale 6 Independent with activity with or without an assistive device 5 Patient requires set up or clean up by helper. Patient completes activity by themselves 4 Supervision or touching assist (CGA). [place] provide cues , steadying assist 3 The helper provides less than half the effort to complete the activity 2 The helper provides more than half the effort to complete the activity 1 Dependent. The helper does all the effort to complete an activity 7 Patient refused to complete or attempt activity 9 The patient did not perform the activity before the current illness or injury 88 Not attempted due to Medical conditions or safety concerns Transfers (B, C, W/C) (FIM): 3 Sit to/from Stand: 3 Patient performs sit to stand with mod assist. He stood in the parallel bars x3 with mod assist and was able to stand for 1-2 min each time and rest breaks between. Wheelchair Training Wheelchair (FIM): 6 Distance: 200'x2 Type of Wheelchair: Motorized Exercises Seated Therapy Exercises: Hip flexion, Hip abd/add Seated Reps: 15 LAQ alternating for 5 min, manually resisted leg press in wheelchair 3 sets of 10 Treatments wheelchair mobility, functional strengthening, standing in parallel bars Assessment Current Status: Fair Progress Patient has made improvements with standing. He fatigues quickly and needs frequent rest breaks. Patient needed a lot of adjusting in the wheelchair but it required him to use his core and arms to adjust. PT Short Term Goals Short Term Goals Time Frame: Oct 27, 2016 Gait (FIM): 1 Gait Distance Comment: 8' Gait Level of Assist: 3 Wheelchair (FIM): 6 Wheelchair Distance: 200'x2 PT Intermediate Goals Intermediate Goals PT Molder Bench Goals Time Frame: Nov 10, 2016 Transfers (B,C,W/C) (FIM): 4 Sit to Lying (QC): 3 Lying-Sitting on Side/Bed(QC): 3 Sit to Stand (QC): 3 Rollin Roll Left to Right (QC): 3 Chair/Lne-ae-Kzkmd Xfer(QC): 3 Car Transfer (QC): 3 Gait (FIM): 1 Distance: 20' Walk 10 feet (QC): 3 Walk 10ft-Uneven Surface(QC): 88 Walk 50ft with 2 Turns (QC): 88 Walk 150 ft (QC): 88 Gait Level of Assist: 4 Gait Assistive Device: FWW Wheelchair (FIM): 6 Distance: 500' Wheel 50 feet with 2 turns (QC: 6 PT Plan Problem List Problem List: Activity Tolerance, Functional Strength, Safety, Balance, Gait, Transfer, Bed Mobility Treatment/Plan Treatment Plan: Continue Plan of Care Treatment Plan: Bed Mobility, Education, Functional Activity Fady, Functional Strength, Group Therapy, Gait, Safety, Therapeutic Exercise, Transfers Treatment Duration: Nov 10, 2016 Visits Per Week: 10-11 Minutes/Day (M-F): 60-90 Minutes/Day (Sat/Cotter): 15-30 Safety Risks/Education Patient Education: Transfer Techniques, Correct Positioning, W/C Management, Safety Issues Teaching Recipient: Patient Teaching Methods: Demonstration, Discussion Response to Teaching: Reinforcement Needed Time/GCodes Time In: 945 Time Out: 1045 Total Billed Treatment Time: 60 Total Billed Treatment [address] [facility] 10' EX 30' FA 20' CATALINA RUBI PT Oct 22, 2016 10:45
--- NOTE | 2016-10-22 11:43 | Progress Note-Hospitalist ---
Progress Note HPI/CC on Admission CC: Medical management following cervical spine surgery HPI: This is a 61-year-old white male that had an uncomplicated cervical spine surgery by Dr. Atkinson on 10/13/16 because of spinal cord compression causing upper and lower extremity weakness with severe radiculopathy and neuropathy and inability to walk. He was seen in the emergency room via [facility] and sent over to Dr. Atkinson's office who evaluated the patient to be in a surgical urgency and underwent cervical spine decompression surgery with hardware placement in an uncomplicated manner on 10/15/16. 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 He has a history of AMY compliant with CPAP, hypertension, osteoarthritis and diabetes mellitus insulin- dependent. He had an uncomplicated course at [facility] and [place], [place] of which I saw him most days of admission following along for medical management. He did have severe fecal impaction with severe constipation due to the spinal cord compression situation in addition to narcotic bowel that was resolved after soapsuds enema given at [facility] yesterday. BM regimen will be initiated. Progress Notes/Assess & Plan Date Seen 10/22/16 Time Seen by Provider: 10:45 Admission Dx/Process Assessment: Debility following cervical spine surgery due to spinal cord compression causing radiculopathy and neuropathy and inability to walk with arm and leg weakness Diabetic ulcer right foot Diabetes mellitus insulin-dependent Hypertension AMY compliant with sleep apnea treatment Osteoarthritis Diagonsis/Assessment & Plan Patient doing well and working with therapy Complaining of left knee pain and that is been an ongoing issue and pops a great deal We talked about options with orthopedic surgery but considering the cervical spine surgery due to cord compression that rehabilitation takes precedence over her left knee pain Celebrex is being held for 6 months No fever, vital signs stable, pleasant Regular rate and rhythm, clear to auscultation bilaterally Increase strength in hands and legs Assessment: Debility following cervical spine surgery due to spinal cord compression causing radiculopathy and neuropathy and inability to walk with arm and leg weakness Diabetic ulcer right foot Diabetes mellitus insulin-dependent Hypertension AMY compliant with sleep apnea treatment Osteoarthritis Plan: Maintain insulin regimen Monitor blood sugar Bowel regimen Rehabilitation Hold Celebrex for 6 months KEANU LI DO Oct 22, 2016 11:43
--- OUTSIDE RECORDS SUMMARY | 2016-10-22 12:46 | XMS REPORT | Continuity of Care Document ---
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 03/21/2009 Ot 780.57 UNSPECIFIED SLEEP APNEA 03/21/2009 Ot V57.1 PHYSICAL THERAPY NEC 03/21/2009 Ot V57.21 ENCOUNTER FOR OCCUPATIONAL THERAPY 03/21/2009 Ot V58.67 LONG-TERM (CURRENT) USE OF INSULIN 05/14/2016 ADOLFO NATARAJAN APRN Ot E11.621 TYPE 2 DIABETES MELLITUS WITH FOOT ULCER 05/14/2016 ADOLFO NATARAJAN APRN Ot L97.412 NON-PRS CHR ULCER OF RIGHT HEEL AND MIDF 05/27/2016 ADOLFO NATARAJAN APRN Ot E11.621 TYPE 2 DIABETES MELLITUS WITH FOOT ULCER 05/27/2016 ADOLFO NATARAJAN APRN Ot L97.412 NON-PRS CHR ULCER OF RIGHT HEEL AND MIDF 06/10/2016 ADOLFO NATARAJAN APRN Ot E11.621 TYPE 2 DIABETES MELLITUS WITH FOOT ULCER 06/10/2016 ADOLFO NATARAJAN APRN Ot L97.412 NON-PRS CHR ULCER OF RIGHT HEEL AND MIDF 06/25/2016 ADOLFO NATARAJAN APRN Ot E11.621 TYPE 2 DIABETES MELLITUS WITH FOOT ULCER 06/25/2016 ADOLFO NATARAJAN APRN Ot L97.412 NON-PRS CHR ULCER OF RIGHT HEEL AND MIDF 07/02/2016 ADOLFO NATARAJAN APRN Ot E11.621 TYPE 2 DIABETES MELLITUS WITH FOOT ULCER 07/02/2016 ADOLFO NATARAJAN APRN Ot L97.412 NON-PRS CHR ULCER OF RIGHT HEEL AND MIDF 08/04/2016 [place] ADOLFO R EMERGENCY VETERINARY TECHNICIAN Ot E11.621 TYPE 2 DIABETES MELLITUS WITH FOOT ULCER 08/04/2016 DELGADO ADOLFO R EMERGENCY VETERINARY TECHNICIAN Ot L97.412 NON-PRS CHR ULCER OF RIGHT HEEL AND MIDF 08/04/2016 DELGADO ADOLFO R EMERGENCY VETERINARY TECHNICIAN Ot E11.621 TYPE 2 DIABETES MELLITUS WITH FOOT ULCER 08/04/2016 DEL[place]ADO ADOLFO R EMERGENCY VETERINARY TECHNICIAN Ot L97.412 NON-PRS CHR ULCER OF RIGHT HEEL AND MIDF 08/05/2016 DEL[place]ADO ADOLFO R EMERGENCY VETERINARY TECHNICIAN Ot E11.621 TYPE 2 DIABETES MELLITUS WITH FOOT ULCER 08/05/2016 DELGADO ADOLFO R EMERGENCY VETERINARY TECHNICIAN Ot L97.412 NON-PRS CHR ULCER OF RIGHT HEEL AND MIDF 08/05/2016 ADOLFO NATARAJAN R EMERGENCY VETERINARY TECHNICIAN Ot E11.621 TYPE 2 DIABETES MELLITUS WITH FOOT ULCER 08/05/2016 DELGADO ADOLFO R EMERGENCY VETERINARY TECHNICIAN Ot L97.412 NON-PRS CHR ULCER OF RIGHT HEEL AND MIDF 08/12/2016 ADOLFO NATARAJAN R EMERGENCY VETERINARY TECHNICIAN Ot E11.621 TYPE 2 DIABETES MELLITUS WITH FOOT ULCER 08/12/2016 DEL[place] ADOLFO R EMERGENCY VETERINARY TECHNICIAN Ot L97.412 NON-PRS CHR ULCER OF RIGHT HEEL AND MIDF 08/13/2016 DEL[place] ADOLFO R EMERGENCY VETERINARY TECHNICIAN Ot E11.621 TYPE 2 DIABETES MELLITUS WITH FOOT ULCER 08/13/2016 DEL[place] ADOLFO R EMERGENCY VETERINARY TECHNICIAN Ot L97.412 NON-PRS CHR ULCER OF RIGHT HEEL AND MIDF 08/13/2016 [place] ADOLFO R EMERGENCY VETERINARY TECHNICIAN Ot E11.621 TYPE 2 DIABETES MELLITUS WITH FOOT ULCER 08/13/2016 [place] ADOLFO R EMERGENCY VETERINARY TECHNICIAN Ot L97.412 NON-PRS CHR ULCER OF RIGHT HEEL AND MIDF 08/13/2016 DEL[place]ADO ADOLFO R EMERGENCY VETERINARY TECHNICIAN Ot E11.621 TYPE 2 DIABETES MELLITUS WITH FOOT ULCER 08/13/2016 DELGADO ADOLFO R EMERGENCY VETERINARY TECHNICIAN Ot L97.412 NON-PRS CHR ULCER OF RIGHT HEEL AND MIDF 08/14/2016 [place] ADOLFO R EMERGENCY VETERINARY TECHNICIAN Ot E11.621 TYPE 2 DIABETES MELLITUS WITH FOOT ULCER 08/14/2016 DELG[place]O ADOLFO R EMERGENCY VETERINARY TECHNICIAN Ot L97.412 NON-PRS CHR ULCER OF RIGHT HEEL AND MIDF 09/15/2016 ADOLFO NATARAJAN R EMERGENCY VETERINARY TECHNICIAN Ot E11.621 TYPE 2 DIABETES MELLITUS WITH FOOT ULCER 09/15/2016 POLLY NATARAJANRobbi Mercado EMERGENCY VETERINARY TECHNICIAN Ot L97.412 NON-PRS CHR ULCER OF RIGHT HEEL AND MIDF 09/15/2016 ADOLFO NATARAJAN EMERGENCY VETERINARY TECHNICIAN Ot E11.621 TYPE 2 DIABETES MELLITUS WITH FOOT ULCER 09/15/2016 ADOLFO NATARAJAN EMERGENCY VETERINARY TECHNICIAN Ot L97.412 NON-PRS CHR ULCER OF RIGHT HEEL AND MIDF 09/28/2016 POLLY NATARAJANN Jess EMERGENCY VETERINARY TECHNICIAN Ot E11.621 TYPE 2 DIABETES MELLITUS WITH FOOT ULCER 09/28/2016 POLLY NATARAJANRobbi Mercado EMERGENCY VETERINARY TECHNICIAN Ot L97.412 NON-PRS CHR ULCER OF RIGHT HEEL AND MIDF 09/30/2016 POLLY NATARAJANN Jess EMERGENCY VETERINARY TECHNICIAN Ot E11.621 TYPE 2 DIABETES MELLITUS WITH FOOT ULCER 09/30/2016 POLLY NATARAJANRobbi Mercado EMERGENCY VETERINARY TECHNICIAN Ot L97.412 NON-PRS CHR ULCER OF RIGHT HEEL AND MIDF 10/14/2016 Ot E11.621 TYPE 2 DIABETES MELLITUS WITH FOOT ULCER 10/14/2016 Ot L97.419 NON-PRS CHR ULCER OF RIGHT HEEL AND MIDF 10/14/2016 Ot M48.02 SPINAL STENOSIS, CERVICAL REGION 10/14/2016 Ot R53.1 WEAKNESS 10/14/2016 Ot 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 10/18/2016 Ot E11.621 TYPE 2 DIABETES MELLITUS WITH FOOT ULCER 10/18/2016 Ot L97.419 NON-PRS CHR ULCER OF RIGHT HEEL AND MIDF 10/18/2016 Ot M48.02 SPINAL STENOSIS, CERVICAL REGION 10/18/2016 Ot R53.1 WEAKNESS 10/18/2016 Ot 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 Procedures Code Description Performed By Performed On 81.51 TOTAL HIP REPLACEMENT 03/18/2009 Results Test Result Range Bacteria identification in isolate by anaerobe culture - 05/07/16 15:40 QUANTITY OF GROWTH Isolated NRG Bacteria identification in isolate by anaerobe culture [id number] NR Gram stain microscopy - 05/07/16 15:40 GRAM STAIN RESULT FEW GRAM NEGATIVE RODS NRG Bacteria identification in wound by culture - 05/07/16 15:40 Bacteria identification in wound by culture [id number] NR FREE TEXT EXTERNAL BETA LACTAMASE NEGATIVE NRG QUANTITY OF GROWTH Moderate Growth NRG MRSA AGAR Screening test for MRSA is NEGATIVE (Final to follow) [facility] FREE TEXT ENTRY 2 (99% PROBABILITY) SEE COMMENT [facility] Bacterial susceptibility panel - 05/07/16 15:40 Oxacillin susceptibility test by minimum inhibitory concentration 0.5 NRG Gentamicin susceptibility test by minimum inhibitory concentration <= NRG Clindamycin susceptibility test by minimum inhibitory concentration <= NRG Erythromycin susceptibility test by minimum inhibitory concentration >= NRG Trimethoprim/sulfamethoxazole susceptibility test by minimum inhibitoryconcentration <= NRG Vancomycin susceptibility test by minimum inhibitory concentration <= NRG Levofloxacin susceptibility test by minimum inhibitory concentration <= NRG Rifampin susceptibility test by minimum inhibitory concentration <= NRG Tetracycline susceptibility test by minimum inhibitory concentration <= NRG Hemoglobin A1c - 05/13/16 16:55 Hemoglobin A1c 7.0 % 4.5-6.2 Bacteria identification in isolate by anaerobe culture - 06/11/16 13:24 QUANTITY OF GROWTH Scant Growth NRG Bacteria identification in isolate by anaerobe culture [id number] NRG Gram stain microscopy - 06/11/16 13:24 GRAM STAIN RESULT NO WBC'S OR BACTERIA OBSERVED NRG Bacteria identification in wound by culture - 06/11/16 13:24 Bacteria identification in wound by culture [id number] NRG FREE TEXT EXTERNAL SENSITIVITY REPORTED 06/14/16 9:45 NRG QUANTITY OF GROWTH Scant Growth NR Bacterial susceptibility panel - 06/11/16 13:24 Oxacillin susceptibility test by minimum inhibitory concentration 0.5 NRG Gentamicin susceptibility test by minimum inhibitory concentration <= NRG Clindamycin susceptibility test by minimum inhibitory concentration <= NRG Erythromycin susceptibility test by minimum inhibitory concentration >= NRG Trimethoprim/sulfamethoxazole susceptibility test by minimum inhibitoryconcentration <= NRG Vancomycin susceptibility test by minimum inhibitory concentration <= NRG Levofloxacin susceptibility test by minimum inhibitory concentration <= NRG Rifampin susceptibility test by minimum inhibitory concentration <= NRG Tetracycline susceptibility test by minimum inhibitory concentration >= NRG Bacteria identification in isolate by anaerobe culture - 07/21/16 13:01 Bacteria identification in isolate by anaerobe culture NOANA NRG Gram stain microscopy - 07/21/16 13:01 GRAM STAIN RESULT FEW WBC'S, NO BACTERIA OBSERVED NRG Bacteria identification in wound by culture - 07/21/16 13:01 Bacteria identification in wound by culture [id number] NRG FREE TEXT EXTERNAL SENSITIVITY REPORTED 07/25/16 8:20 NRG QUANTITY OF GROWTH Scant Growth NRG MRSA AGAR Screening test for MRSA is NEGATIVE (Final to follow) NR Bacterial susceptibility panel - 07/21/16 13:01 Gentamicin susceptibility test by minimum inhibitory concentration 4 NRG Trimethoprim/sulfamethoxazole susceptibility test by minimum inhibitoryconcentration <= NRG Ampicillin susceptibility test by minimum inhibitory concentration >= NRG Tobramycin susceptibility test by minimum inhibitory concentration 4 NRG Cefazolin susceptibility test by minimum inhibitory concentration 32 NRG Ceftriaxone susceptibility test by minimum inhibitory concentration <= NRG Ampicillin/sulbactam susceptibility test by minimum inhibitory concentration <= NRG Piperacillin/tazobactam susceptibility test by minimum inhibitory concentration <= NRG Ciprofloxacin susceptibility test by minimum inhibitory concentration 1 NRG Meropenem susceptibility test by minimum inhibitory concentration <= NRG Aztreonam susceptibility test by minimum inhibitory concentration 32 NRG Tigecycline susceptibility test by minimum inhibitory concentration >= NRG Whole blood basic metabolic panel - 08/04/16 11:53 Serum or plasma sodium measurement (moles/volume) 137 mmol/ L 135-145 Serum or plasma potassium measurement (moles/volume) 4.3 mmol/L 3.6-5.0 Serum or plasma chloride measurement (moles/volume) 103 mmol /L 98-107 Carbon dioxide 28 mmol/L 21-32 Serum or plasma anion gap determination (moles/volume) 6 mmol/L 5-14 Serum or plasma urea nitrogen measurement (mass/volume) 14 mg/dL 7-18 Serum or plasma creatinine measurement (mass/volume) 0.83 mg /dL 0.60-1.30 Serum or plasma urea nitrogen/creatinine mass ratio 17 NRG Serum or plasma creatinine measurement with calculation of estimated glomerular filtration rate > NRG Serum or plasma glucose measurement (mass/volume) 182 mg/dL 70-105 Serum or plasma calcium measurement (mass/volume) 9.1 mg/dL 8.5-10.1 Bacteria identification in isolate by anaerobe culture - 09/15/16 13:05 Bacteria identification in isolate by anaerobe culture NOANA NR Gram stain microscopy - 09/15/16 13:05 GRAM STAIN RESULT FEW WBC'S, NO BACTERIA OBSERVED NR Bacteria identification in wound by culture - 09/15/16 13:05 Bacteria identification in wound by culture [id number] [facility] FREE TEXT EXTERNAL NO FURTHER STUDIES UNLESS REQUESTED NRG QUANTITY OF GROWTH Scant Growth [facility] Bacterial susceptibility panel - 09/15/16 13:05 Gentamicin susceptibility test by minimum inhibitory concentration S NRG Erythromycin susceptibility test by minimum inhibitory concentration 2 NRG Vancomycin susceptibility test by minimum inhibitory concentration 1 NRG Ampicillin susceptibility test by minimum inhibitory concentration <= NRG Linezolid susceptibility test by minimum inhibitory concentration 2 NRG Hemoglobin A1c - 09/15/16 14:15 Hemoglobin A1c 6.6 % 4.5-6.2 PT panel in platelet poor plasma by coagulation assay - 10/12/16 19:44 Prothrombin time (PT) in platelet poor plasma by coagulation assay 13.1 s 12.2-14.7 INR in platelet poor plasma or blood by coagulation assay 1.0 0.8-1.4 Capillary blood glucose measurement by glucometer (mass/volume) - 10/19/16 20: 17 Capillary blood glucose measurement by glucometer (mass/volume) 192 mg/dL 70-110 Complete blood count (CBC) with automated white blood cell (WBC) differential - 10/20/16 06:18 Blood leukocytes automated count (number/volume) 6.1 10*3/ uL 4.3-11.0 Blood erythrocytes automated count (number/volume) 4.59 10*6 /uL 4.35-5.85 Venous blood hemoglobin measurement (mass/volume) 13.4 g/dL 13.3-17.7 Blood hematocrit (volume fraction) 41 % 40-54 Automated erythrocyte mean corpuscular volume 89 [foz_us] 80-99 Automated erythrocyte mean corpuscular hemoglobin (mass per erythrocyte) 29 pg 25-34 Automated erythrocyte mean corpuscular hemoglobin concentration measurement ( mass/volume) 33 g/dL 32-36 Automated erythrocyte distribution width ratio 15.9 % 10.0-14.5 Automated blood platelet count (count/volume) 259 10*3/uL 130-400 Automated blood platelet mean volume measurement 9.0 [foz_us ] 7.4-10.4 Automated blood neutrophils/100 leukocytes 62 % 42-75 Automated blood lymphocytes/100 leukocytes 21 % 12-44 Blood monocytes/100 leukocytes 12 % 0-12 Automated blood eosinophils/100 leukocytes 4 % 0-10 Automated blood basophils/100 leukocytes 1 % 0-10 Blood neutrophils automated count (number/volume) 3.8 10*3 1.8-7.8 Blood lymphocytes automated count (number/volume) 1.3 10*3 1.0-4.0 Blood monocytes automated count (number/volume) 0.7 10*3 0.0-1.0 Automated eosinophil count 0.3 10*3/uL 0.0-0.3 Automated blood basophil count (count/volume) 0.0 10*3/uL 0.0-0.1 Capillary blood glucose measurement by glucometer (mass/volume) - 10/20/16 06: 30 Capillary blood glucose measurement by glucometer (mass/volume) 162 mg/dL 70-110 Comprehensive metabolic panel - 10/20/16 06:48 Serum or plasma sodium measurement (moles/volume) 139 mmol/ L 135-145 Serum or plasma potassium measurement (moles/volume) 4.0 mmol/L 3.6-5.0 Serum or plasma chloride measurement (moles/volume) 103 mmol /L 98-107 Carbon dioxide 25 mmol/L 21-32 Serum or plasma anion gap determination (moles/volume) 11 mmol/L 5-14 Serum or plasma urea nitrogen measurement (mass/volume) 22 mg/dL 7-18 Serum or plasma creatinine measurement (mass/volume) 0.69 mg /dL 0.60-1.30 Serum or plasma urea nitrogen/creatinine mass ratio 32 0-20 Serum or plasma creatinine measurement with calculation of estimated glomerular filtration rate > NRG Serum or plasma glucose measurement (mass/volume) 175 mg/dL 70-105 Serum or plasma calcium measurement (mass/volume) 9.8 mg/dL 8.5-10.1 Serum or plasma total bilirubin measurement (mass/volume) 1.0 mg/dL 0.1-1.0 Serum or plasma alkaline phosphatase measurement (enzymatic activity/volume) 53 U/L 40-136 Serum or plasma aspartate aminotransferase measurement (enzymatic activity/ volume) 16 U/L 5-34 Serum or plasma alanine aminotransferase measurement (enzymatic activity/volume ) 21 U/L 0-55 Serum or plasma protein measurement (mass/volume) 6.8 g/dL 6.4-8.2 Serum or plasma albumin measurement (mass/volume) 3.5 g/dL 3.2-4.5 Capillary blood glucose measurement by glucometer (mass/volume) - 10/20/16 10: 42 Capillary blood glucose measurement by glucometer (mass/volume) 172 mg/dL 70-110 Capillary blood glucose measurement by glucometer (mass/volume) - 10/20/16 16: 33 Capillary blood glucose measurement by glucometer (mass/volume) 84 mg/dL 70-110 Capillary blood glucose measurement by glucometer (mass/volume) - 10/20/16 20: 22 Capillary blood glucose measurement by glucometer (mass/volume) 200 mg/dL 70-110 Capillary blood glucose measurement by glucometer (mass/volume) - 10/21/16 06: 47 Capillary blood glucose measurement by glucometer (mass/volume) 161 mg/dL 70-110 Capillary blood glucose measurement by glucometer (mass/volume) - 10/21/16 11: 09 Capillary blood glucose measurement by glucometer (mass/volume) 109 mg/dL 70-110 Capillary blood glucose measurement by glucometer (mass/volume) - 10/21/16 16: 31 Capillary blood glucose measurement by glucometer (mass/volume) 98 mg/dL 70-110 Capillary blood glucose measurement by glucometer (mass/volume) - 10/21/16 21: 49 Capillary blood glucose measurement by glucometer (mass/volume) 132 mg/dL 70-110 Encounters ACCT No. Visit Date/Time Discharge Status Pt. Type Provider Facility Loc./Unit Complaint [id number] 08/04/2016 11:54:00 2016 00:01:00 DIS Outpatient ADOLFO NATARAJAN APRN [facility] WOUNDCARE [id number] 11/05/2014 18:04:00 2014 23:59:59 CLS Outpatient DA ARROYO [facility] QUICK [id number] 06/08/2014 10:07:00 2014 23:59:59 CLS Outpatient KARLY BAILEY APRN [facility] QUICK [id number] 10/19/2016 16:34:00 ACT Inpatient BRAD HAGER, JOSEY Celestin [facility] IRF CERVICAL SPONDYLOSIS WITH MYELOPATHY [id number] 10/12/2016 20:12:00 Document Registration [id number] 10/08/2016 12:08:00 ACT Outpatient ADOLFO NATARAJAN APRN [facility] WOUNDCARE [id number] 09/15/2016 13:59:00 ACT Outpatient ADOLFO NATARAJAN APRN [facility] LAB E11.621 [id number] 08/04/2016 11:40:00 ACT Outpatient ADOLFO NATARAJAN APRN [facility] LAB E11.621 [id number] 05/13/2016 16:28:00 ACT Outpatient ADOLFO NATARAJAN APRN [facility] RAD L97.412,E11.621 [id number] 03/18/2009 05:46:00 Document Registration
--- NOTE | 2016-10-22 14:44 | Occupational Ther Daily Note ---
OT Current Status-Daily Note Subjective Pt seen in room, up on BSC, agreeable to OT. No pain mentioned. Appearance Alert, cooperative Mental Status/Objective Functional [place] Measure 0=Not Assessed/NA 4=Minimal Assistance 1=Total Assistance 5=Supervision or Setup 2=Maximal Assistance 6=Modified [place] 3=Moderate Assistance 7=Complete [place] ADL-Treatment All ADLs took longer that usual due to equipment preparations required. Stood two times during toileting and extra time needed. Has difficulty placing hands on arm rests on sit to stand lift due to decreased grasp in bilat hands, R worse than L Functional [place] Measure 0=Not Assessed/NA 4=Minimal Assistance 1=Total Assistance 5=Supervision or Setup 2=Maximal Assistance 6=Modified [place] 3=Moderate Assistance 7=Complete IndependenceIRFPAI Quality Coding Scale 6 Independent with activity with or without an assistive device 5 Patient requires set up or clean up by helper. Patient completes activity by themselves 4 Supervision or touching assist (CGA). [place] provide cues , steadying assist 3 The helper provides less than half the effort to complete the activity 2 The helper provides more than half the effort to complete the activity 1 Dependent. The helper does all the effort to complete an activity 7 Patient refused to complete or attempt activity 9 The patient did not perform the activity before the current illness or injury 88 Not attempted due to Medical conditions or safety concerns Grooming (FIM): 4 (Pt was able to shave most of face with setup but could not get neck. Used built up handle on razor and magnifying mirror. Brushed teeth with setup but he put toothpaste on toothbrush. Attempted to get power chair up to sink but could not swing controls out of the way. Washed cace with setup. Cannot put hair in pony tail kelley) Lower Body Dressing (FIM): 1 (Able to lift feet to place them inpants but not able to pullpants up to thighs or over hips. Unable to manage socks or shies. Sit to stand lift to stand to pull pants up.) Toileting (FIM): 1 (Requires sit to stand lift to manage hygiene and clothing and two people - one to manage lift and one to manage toileting. BS) Toilet/Commode Transfer (FIM): 1 (Sit to stand lift to transfer from BSC to power chair. Two people - one to manage lift and one to manage chair) Pt left up in power chair, all needs met. Education OT Patient Education: Modified ADL techniques, Progress toward Goal/Update tx plan, Safety issues, Transfer techniques Teaching Recipient: Patient Teaching Methods: Discussion Response to Teaching: Verbalize Understanding OT Short Term Goals Short Term Goals Time Frame: Nov 03, 2016 Eating(FIM): 5 Grooming(FIM): 5 Upper Body Dressing(FIM): 4 Toileting(FIM): 2 Toilet/Commode Transfer(FIM): 3 Additional Short Term Goals: 1-Demonstrate ADL Tasks, 2-Verbalize Understanding , 3-ImproveStrength/Fady 1=Demonstrate adherence to instructed precautions during ADL tasks. 2=Patient will verbalize/demonstrate understanding of assistive devices/ modifications for ADL. 3=Patient will improve strength/tolerance for activity to enable patient to perform ADL's. OT Solvent Plant Treater Goals Solvent Plant Treater Goals Time Frame: Nov 17, 2016 Eating (FIM): 6 Eating (QC): 6 Groomin Oral Hygiene (QC): 6 Bathing(FIM): 5 (SBA, supervision) Shower/Bathe Self (QC): 4 Upper Body Dressing(FIM): 5 Upper Body Dressing (QC): 5 Lower Body Dressing(FIM): 5 Lower Body Dressing (QC): 4 On/Off Footwear (QC): 4 Toileting(FIM): 5 Toileting Hygiene (QC): 4 Toilet/Commode Transfer(FIM): 5 Toilet/Commode Transfer (QC): 4 Shower Transfer(FIM): 5 Additional Goals: 1-Demonstrate ADL Tasks, 2-Verbalize Understanding, 3- ImproveStrength/Fady 1=Demonstrate adherence to instructed precautions during ADL tasks. 2=Patient will verbalize/demonstrate understanding of assistive devices/ modifications for ADL. 3=Patient will improve strength/tolerance for activity to enable patient to perform ADL's. OT Education/Plan Problem List/Assessment Pt would benefit from skilled OT to increase her independence in basic self care to allow him to safely return to his home and decrease caregiver burden Discharge Recommendations Plan/Recommendations: Continue POC Treatment Plan/Plan of Care Patient would benefit from OT for education, treatment and training to promote independence in ADL's, mobility, safety and/or upper extremity function for ADL' s. Plan of Care: ADL Retraining, Functional Mobility, Group Exercise/Act as Ind ( education, exercise, activity tolerance, functional activities, coordination), UE Funct Exercise/Act, UE Neuromus Re-Ed/Coord, W/C Management Training Treatment Duration: Nov 17, 2016 Visits Per Week: 10-11 Minutes/Day (M-F): 75-90 Minutes/Day (Sat/Cotter): PRN Agreement: Yes Rehab Potential: Fair Time/GCodes Start Time: 08:30 Stop Time: 09:30 Total Time Billed (hr/min): 60 Billed Treatment Time visit, 60 minutes ADL THAI HOOVER OT Oct 22, 2016 14:44
--- NOTE | 2016-10-22 14:45 | Occupational Ther Daily Note ---
OT Current Status-Daily Note Subjective Pt seen in room, up in power chair, ready for OT. Mental Status/Objective Functional [place] Measure 0=Not Assessed/NA 4=Minimal Assistance 1=Total Assistance 5=Supervision or Setup 2=Maximal Assistance 6=Modified [place] 3=Moderate Assistance 7=Complete [place] ADL-Treatment Pt gathered up laundry, with assistance, and took himself to laundry by power chair, holding on to laundry with R hand and operating chair with L. Help needed to open door to laundry room but he was able to put laundry and soap in washer. Unable to get close enough to set controls on washer. Pt also given ring attacher to use to picker / packer laundry and other items. Functional [place] Measure 0=Not Assessed/NA 4=Minimal Assistance 1=Total Assistance 5=Supervision or Setup 2=Maximal Assistance 6=Modified [place] 3=Moderate Assistance 7=Complete IndependenceIRFPAI Quality Coding Scale 6 Independent with activity with or without an assistive device 5 Patient requires set up or clean up by helper. Patient completes activity by themselves 4 Supervision or touching assist (CGA). [place] provide cues , steadying assist 3 The helper provides less than half the effort to complete the activity 2 The helper provides more than half the effort to complete the activity 1 Dependent. The helper does all the effort to complete an activity 7 Patient refused to complete or attempt activity 9 The patient did not perform the activity before the current illness or injury 88 Not attempted due to Medical conditions or safety concerns Other Treatment Pt took himself to gym per power chair. Used e-stim for skilled facilitation of wrist extension and also tapping. Wrist extensors responded better to tapping. Also worked with skilled place and hold to increase R finger flexion strength. Able to get all fingers to hold at palm except index about 1/4" from palm. Pt provided with red theraputty (medium resistance) and was able to squeeze putty in bila hands but not manipulate it. Pt educ on using putty in his room, with his verbal understanding. Pt took himself back to his room, Education OT Patient Education: Exercise program, Purpose of tx/functional activities Teaching Recipient: Patient Teaching Methods: Demonstration, Discussion Response to Teaching: Verbalize Understanding OT Short Term Goals Short Term Goals Time Frame: Nov 03, 2016 Eating(FIM): 5 Grooming(FIM): 5 Upper Body Dressing(FIM): 4 Toileting(FIM): 2 Toilet/Commode Transfer(FIM): 3 Additional Short Term Goals: 1-Demonstrate ADL Tasks, 2-Verbalize Understanding , 3-ImproveStrength/Fady 1=Demonstrate adherence to instructed precautions during ADL tasks. 2=Patient will verbalize/demonstrate understanding of assistive devices/ modifications for ADL. 3=Patient will improve strength/tolerance for activity to enable patient to perform ADL's. OT Certified Credit Counselor Goals Certified Credit Counselor Goals Time Frame: Nov 17, 2016 Eating (FIM): 6 Eating (QC): 6 Groomin Oral Hygiene (QC): 6 Bathing(FIM): 5 (SBA, supervision) Shower/Bathe Self (QC): 4 Upper Body Dressing(FIM): 5 Upper Body Dressing (QC): 5 Lower Body Dressing(FIM): 5 Lower Body Dressing (QC): 4 On/Off Footwear (QC): 4 Toileting(FIM): 5 Toileting Hygiene (QC): 4 Toilet/Commode Transfer(FIM): 5 Toilet/Commode Transfer (QC): 4 Shower Transfer(FIM): 5 Additional Goals: 1-Demonstrate ADL Tasks, 2-Verbalize Understanding, 3- ImproveStrength/Fady 1=Demonstrate adherence to instructed precautions during ADL tasks. 2=Patient will verbalize/demonstrate understanding of assistive devices/ modifications for ADL. 3=Patient will improve strength/tolerance for activity to enable patient to perform ADL's. OT Education/Plan Problem List/Assessment Pt would benefit from skilled OT to increase her independence in basic self care to allow him to safely return to his home and decrease caregiver burden Discharge Recommendations Plan/Recommendations: Continue POC Treatment Plan/Plan of Care Patient would benefit from OT for education, treatment and training to promote independence in ADL's, mobility, safety and/or upper extremity function for ADL' s. Plan of Care: ADL Retraining, Functional Mobility, Group Exercise/Act as Ind ( education, exercise, activity tolerance, functional activities, coordination), UE Funct Exercise/Act, UE Neuromus Re-Ed/Coord, W/C Management Training Treatment Duration: Nov 17, 2016 Visits Per Week: 10-11 Minutes/Day (M-F): 75-90 Minutes/Day (Sat/Cotter): PRN Agreement: Yes Rehab Potential: Fair Time/GCodes Start Time: 13:30 Stop Time: 14:00 Total Time Billed (hr/min): 30 Billed Treatment Time visit, 15 min ADL, 15 min neuromotor THAI HOOVER OT Oct 22, 2016 14:45
--- NOTE | 2016-10-22 15:54 | Physical Therapy Daily Note ---
PT Daily Note-Current Subjective Agreeable to PT. Transfers Functional [place] Measure 0=Not Assessed/NA 4=Minimal Assistance 1=Total Assistance 5=Supervision or Setup 2=Maximal Assistance 6=Modified [place] 3=Moderate Assistance 7=Complete IndependenceIRFPAI Quality Coding Scale 6 Independent with activity with or without an assistive device 5 Patient requires set up or clean up by helper. Patient completes activity by themselves 4 Supervision or touching assist (CGA). [place] provide cues , steadying assist 3 The helper provides less than half the effort to complete the activity 2 The helper provides more than half the effort to complete the activity 1 Dependent. The helper does all the effort to complete an activity 7 Patient refused to complete or attempt activity 9 The patient did not perform the activity before the current illness or injury 88 Not attempted due to Medical conditions or safety concerns Treatments Sit to stand x 5 in // bars with mod assist to stand, assist to keep right UE on the bar and assist to assist with hip extension as well as assist in front to maintain standing. Overall, 3 people working on the stand. Set up solo step for attempt to stand and ambulate with support to reduce fall risk, pt had difficulty coming to a full stand and using the walker to ambulate ; therefore, tried the solo step as it has a lifting mechanism. Unable to extend straps sufficiently to safely attach and support his weight; however in the set up process of both lift mechanisms, pt performed multiple partial sit to stand transfers. Pt then returned to bed post treatment with max of 2 for SPT with FWW chair to bed. Pt seated EOB post treatment with family present. Assessment Pt tends to be retropulsive and keeps feet too far ahead of him. If his feet are under him, he tends to collapse into hip/knee flexion . Much difficulty with full hip and knee extension and obtaining his mass over his center of gravity. PT Short Term Goals Short Term Goals Time Frame: Oct 27, 2016 Gait (FIM): 1 Gait Distance Comment: 8' Gait Level of Assist: 3 Wheelchair (FIM): 6 Wheelchair Distance: 200'x2 PT Strategies Analyst Goals Care Home Goals PT Strategies Analyst Goals Time Frame: Nov 10, 2016 Transfers (B,C,W/C) (FIM): 4 Sit to Lying (QC): 3 Lying-Sitting on Side/Bed(QC): 3 Sit to Stand (QC): 3 Rollin Roll Left to Right (QC): 3 Chair/Tnr-xd-Hwqas Xfer(QC): 3 Car Transfer (QC): 3 Gait (FIM): 1 Distance: 20' Walk 10 feet (QC): 3 Walk 10ft-Uneven Surface(QC): 88 Walk 50ft with 2 Turns (QC): 88 Walk 150 ft (QC): 88 Gait Level of Assist: 4 Gait Assistive Device: FWW Wheelchair (FIM): 6 Distance: 500' Wheel 50 feet with 2 turns (QC: 6 PT Plan Problem List Problem List: Activity Tolerance, Functional Strength, Safety, Balance, Gait, Transfer Treatment/Plan Treatment Plan: Continue Plan of Care Treatment Plan: Bed Mobility, Education, Functional Activity Fady, Functional Strength, Group Therapy, Gait, Safety, Therapeutic Exercise, Transfers Treatment Duration: Nov 10, 2016 Visits Per Week: 10-11 Minutes/Day (M-F): 60-90 Minutes/Day (Sat/Cotter): 15-30 Safety Risks/Education Patient Education: Transfer Techniques, Safety Issues Teaching Recipient: Patient Teaching Methods: Demonstration, Discussion Response to Teaching: Reinforcement Needed Discharge Recommendations Plan May try the lite gait again tomorrow. Time/GCodes Time In: 1430 Time Out: 1530 Total Billed Treatment Time: 60 Total Billed Treatment visit FA 60 PREMA JURADO PT Oct 22, 2016 15:54
[2016-10-22 17:30] VITALS: BP 135/88
[2016-10-23] MEDS: HYDROcodone/APAP 10 MG/325 MG (LORTAB) TAB PO PRN ×5 (00:32→21:14)
[2016-10-23 05:06] VITALS: BP 144/89
[2016-10-23] MEDS: MULTIVIT W/MINERALS TAB (THERAGRAN M) PO SCH (06:33)
[2016-10-23] MEDS: metFORMIN 500 MG (GLUCOPHAGE) TAB PO SCH ×2 (06:33→21:31)
[2016-10-23] MEDS: inSUlin (REGULAR) HUMAN 1 UNIT/0.01 ML (CHARGE PER UNIT) SC SCH ×3 (07:36→20:39)
--- NOTE | 2016-10-23 08:01 | PM & R (SOAP) Progress Note ---
Subjective Time Seen by Provider: 07:50 Subjective/Events-last exam Patient was seen in his room this AM.C/O left knee clicking and painful with wt bearing Requets an Xray Last Film left knee revealed minimal findings,Will recheck Patient mod assist for transfers. Review of Systems Musculoskeletal: leg pain Objective Exam Last Set of Vital Signs Vital Signs Date Time Temp Pulse Resp B/P (MAP) Pulse Ox O2 Delivery O2 Flow Rate FiO2 10/23/16 05:06 97.9 88 20 144/89 95 Room Air Capillary Refill : Less Than 3 Seconds I&O Intake and Output 10/23/16 00:00 Intake Total 1700 ml Output Total 500 ml Balance 1200 ml Intake Oral 1700 ml Output Urine Total 500 ml # Voids 3 # Bowel Movements 1 General: Alert, Oriented X3, Cooperative, No Acute Distress HEENT: Atraumatic, PERRLA, EOMI, Mucous Memb Moist/[place] Neck: Other (Rigid C collar in place [place] dressing dry and intact) Lungs: Clear to Auscultation Heart: Regular Rate Abdomen: Normal Bowel Sounds, Soft, No Tenderness Extremities: No Edema Skin: Other (incusion coverered/Rt heel diabetic ulcer heeled as per DR Finch) Neuro: Other (Decreased sensation in feet and numbness in hands Weak rt wrist and hand extensors and 3-/5 strength in legs) Results Lab Laboratory Tests 10/20/16 10:42: Glucometer 172H 10/20/16 16:33: Glucometer 84 10/20/16 20:22: Glucometer 200H 10/21/16 06:47: Glucometer 161H 10/21/16 11:09: Glucometer 109 10/21/16 16:31: Glucometer 98 10/21/16 21:49: Glucometer 132H 10/22/16 06:16: Glucometer 106 10/22/16 10:57: Glucometer 139H 10/22/16 16:39: Glucometer 133H 10/22/16 21:13: Glucometer 150H 10/23/16 04:44: Glucometer 79 Assessment/Plan Assessment S/P decompression Cervical Spine stenosis with myelopathy DM meds adjusted Rt heel diabetic ulcer healed AMY on cpap HTN controlled Painful left knee Plan Continue PT/OT/Pain management F/u with Dr Evangelista and [place] prn Adjust diabetic meds as needed Rigid C collar on at all times except when eating as OKD by DR Atkinson Team Conference 10-21-16- See report for full functional update and POC and ELOS Recheck Xray left knee-Has seen DR Pepe Vicente in [place] prior to this JOSEY SALINAS MD Oct 23, 2016 08:01
[2016-10-23] MEDS: POLYETHYLENE GLYCOL 17 GM (MIRALAX) PACK PO SCH ×2 (08:19→21:13)
[2016-10-23] MEDS: HYDROCHLOROTHIAZIDE 25 MG (HCTZ) TAB PO SCH (08:19)
[2016-10-23] MEDS: VERAPAMIL 80 MG (ISOPTIN) TAB PO SCH ×2 (08:19→21:12)
[2016-10-23] MEDS: SENNA W/DOCUSATE (SENOKOT S) TABLET PO SCH ×2 (08:19→21:12)
[2016-10-23] MEDS: LACTULOSE SYRUP 10GM/15ML (ENULOSE) 30ML UDC PO SCH ×2 (08:20→21:15)
--- NOTE | 2016-10-23 09:18 | Diagnostic Imaging Report ---
EXAMINATION: Three views of the left knee. INDICATION: Left knee pain. FINDINGS: There is no fracture, dislocation, or radiopaque foreign body. There is spur formation of the superior patella at the insertion site of the quadriceps tendon. No suprapatellar effusion is noted. There is moderate joint space narrowing in the medial compartment with tricompartment small osteophytes seen. IMPRESSION: Osteoarthritis changes, most prominent in the medial compartment. Dictated by: Dictated on workstation # [id number]
--- NOTE | 2016-10-23 09:45 | Physical Therapy Daily Note ---
PT Daily Note-Current Subjective Patient in bed pre tx, agrees to PT, has pain of 5-6/10 in neck and left hip and knee. Patient has soiled the bed and will need to have his shorts changed. He would also like to sit at the edge of the bed and try to urinate in the urinal. Appearance Patient in power chair post tx, he is mod I with wheelchair mobility. Mental Status Patient Orientation: Normal For Age cervical collar Transfers Functional [place] Measure 0=Not Assessed/NA 4=Minimal Assistance 1=Total Assistance 5=Supervision or Setup 2=Maximal Assistance 6=Modified [place] 3=Moderate Assistance 7=Complete IndependenceIRFPAI Quality Coding Scale 6 Independent with activity with or without an assistive device 5 Patient requires set up or clean up by helper. Patient completes activity by themselves 4 Supervision or touching assist (CGA). [place] provide cues , steadying assist 3 The helper provides less than half the effort to complete the activity 2 The helper provides more than half the effort to complete the activity 1 Dependent. The helper does all the effort to complete an activity 7 Patient refused to complete or attempt activity 9 The patient did not perform the activity before the current illness or injury 88 Not attempted due to Medical conditions or safety concerns Transfers (B, C, W/C) (FIM): 2 Scootin Rollin Supine to/from Sit: 3 Sit to/from Stand: 2 Bed to/from Chair: 2 Patient sat at the edge of the bed and tried to use the urinal but he could not go. Then, he stood with therapist assist and another therapist pulled his shorts down, he sat and a clean pair was put on his legs, he stood again, the therapist pulled his shorts up, and he performed a stand pivot over to the power chair. Patient also performed a lot of bed mobility training in order to get the LiteGait sling on. Gait Training Patient ambulated 15' in the LiteGait, he had a lot of trouble advancing his legs even with a significant portion of his weight supported, he also leans to the left side. Exercises Seated Therapy Exercises: Hip flexion, Hip abd/add Seated Reps: 15 LAQ alternating for 5 min Treatments bed mobility and transfers, ambulation, functional strengthening Assessment Current Status: Fair Progress Patient was able to take a few steps using the LiteGait weight supported gait system. PT Short Term Goals Short Term Goals Time Frame: Oct 27, 2016 Gait (FIM): 1 Gait Distance Comment: 8' Gait Level of Assist: 3 Wheelchair (FIM): 6 Wheelchair Distance: 200'x2 PT Intermediate Goals Oil Lease Buyer Goals PT Intermediate Goals Time Frame: Nov 10, 2016 Transfers (B,C,W/C) (FIM): 4 Sit to Lying (QC): 3 Lying-Sitting on Side/Bed(QC): 3 Sit to Stand (QC): 3 Rollin Roll Left to Right (QC): 3 Chair/Bhc-nk-Aaiqf Xfer(QC): 3 Car Transfer (QC): 3 Gait (FIM): 1 Distance: 20' Walk 10 feet (QC): 3 Walk 10ft-Uneven Surface(QC): 88 Walk 50ft with 2 Turns (QC): 88 Walk 150 ft (QC): 88 Gait Level of Assist: 4 Gait Assistive Device: FWW Wheelchair (FIM): 6 Distance: 500' Wheel 50 feet with 2 turns (QC: 6 PT Plan Problem List Problem List: Activity Tolerance, Functional Strength, Safety, Balance, Gait, Transfer, Bed Mobility, ROM Treatment/Plan Treatment Plan: Continue Plan of Care Treatment Plan: Bed Mobility, Education, Functional Activity Fady, Functional Strength, Group Therapy, Gait, Safety, Therapeutic Exercise, Transfers Treatment Duration: Nov 10, 2016 Visits Per Week: 10-11 Minutes/Day (M-F): 60-90 Minutes/Day (Sat/[place]ter): 15-30 Safety Risks/Education Patient Education: Gait Training, Transfer Techniques, Correct Positioning, Safety Issues Teaching Recipient: Patient Teaching Methods: Demonstration, Discussion Response to Teaching: Reinforcement Needed Time/GCodes Time In: 845 Time Out: 945 Total Billed Treatment Time: 60 Total Billed Treatment 1 visit EX 15' GT 15' FA 30' CATALINA RUBI PT Oct 23, 2016 09:45
--- NOTE | 2016-10-23 12:45 | Occupational Ther Daily Note ---
OT Current Status-Daily Note Subjective Pt seen in room, up in power chair, agreeable to OT. Pt wanted to shower today and wash his hair. No pain mentioned Appearance Alert, cooperative, participative in care Mental Status/Objective Functional [place] Measure 0=Not Assessed/NA 4=Minimal Assistance 1=Total Assistance 5=Supervision or Setup 2=Maximal Assistance 6=Modified [place] 3=Moderate Assistance 7=Complete [place] ADL-Treatment Pt was transferred from power chair to wheeled shower chair with sit to stand lift. He sometimes has trouble with foot placement on the lift and legs either spasm into knee flexion or into extension. Two people needed to transfer him, one to manage the lift and one to manage shower chair. Pt was transported to shower room per shower chair. He was able to assist with bathing but could not wash under either arm. Help was needed with washing hair. R foot in plastic bag to keep it dry. He was able to pick both feet up and place them on the footrest of the shower chair. He was transported back to his room after the shower and dressed his upper body (pants left off with his OK to facilitate use of urinal) . He was transferred by sit to stand lift to bed and needed help to get legs into bed. Pt left up in bed, 4 rails up, all needs met. Functional [place] Measure 0=Not Assessed/NA 4=Minimal Assistance 1=Total Assistance 5=Supervision or Setup 2=Maximal Assistance 6=Modified [place] 3=Moderate Assistance 7=Complete IndependenceIRFPAI Quality Coding Scale 6 Independent with activity with or without an assistive device 5 Patient requires set up or clean up by helper. Patient completes activity by themselves 4 Supervision or touching assist (CGA). [place] provide cues , steadying assist 3 The helper provides less than half the effort to complete the activity 2 The helper provides more than half the effort to complete the activity 1 Dependent. The helper does all the effort to complete an activity 7 Patient refused to complete or attempt activity 9 The patient did not perform the activity before the current illness or injury 88 Not attempted due to Medical conditions or safety concerns Bathing (FIM): 2 (40% (could wash arms but not arm pits). Has difficuty holding on to wash clothes with hands. ) Bathing Location: L Upper Leg, R Upper Leg, Chest, Abdomen Upper Body (FIM): 2 (Help getting shirt over head due to cervical collar and limited shoulder movement and grasp) Lower Body Dressing (FIM): 1 (Unale to get slipper socks or shoes off or on. Unable to manage pulling pants down but can pick feet up to get them out of shorts. Sit to stand lift required and two person assist.) Transfers (B, C, W/C) (FIM): 1 Education OT Patient Education: Progress toward Goal/Update tx plan Teaching Recipient: Patient Teaching Methods: Discussion Response to Teaching: Verbalize Understanding OT Short Term Goals Short Term Goals Time Frame: Nov 03, 2016 Eating(FIM): 5 Grooming(FIM): 5 Upper Body Dressing(FIM): 4 Toileting(FIM): 2 Toilet/Commode Transfer(FIM): 3 Additional Short Term Goals: 1-Demonstrate ADL Tasks, 2-Verbalize Understanding , 3-ImproveStrength/Fady 1=Demonstrate adherence to instructed precautions during ADL tasks. 2=Patient will verbalize/demonstrate understanding of assistive devices/ modifications for ADL. 3=Patient will improve strength/tolerance for activity to enable patient to perform ADL's. OT Line Installer Goals Senior Care Goals Time Frame: Nov 17, 2016 Eating (FIM): 6 Eating (QC): 6 Groomin Oral Hygiene (QC): 6 Bathing(FIM): 5 (SBA, supervision) Shower/Bathe Self (QC): 4 Upper Body Dressing(FIM): 5 Upper Body Dressing (QC): 5 Lower Body Dressing(FIM): 5 Lower Body Dressing (QC): 4 On/Off Footwear (QC): 4 Toileting(FIM): 5 Toileting Hygiene (QC): 4 Toilet/Commode Transfer(FIM): 5 Toilet/Commode Transfer (QC): 4 Shower Transfer(FIM): 5 Additional Goals: 1-Demonstrate ADL Tasks, 2-Verbalize Understanding, 3- ImproveStrength/Fady 1=Demonstrate adherence to instructed precautions during ADL tasks. 2=Patient will verbalize/demonstrate understanding of assistive devices/ modifications for ADL. 3=Patient will improve strength/tolerance for activity to enable patient to perform ADL's. OT Education/Plan Problem List/Assessment Pt would benefit from skilled OT to increase her independence in basic self care to allow him to safely return to his home and decrease caregiver burden Discharge Recommendations Plan/Recommendations: Continue POC Treatment Plan/Plan of Care Patient would benefit from OT for education, treatment and training to promote independence in ADL's, mobility, safety and/or upper extremity function for ADL' s. Plan of Care: ADL Retraining, Functional Mobility, Group Exercise/Act as Ind ( education, exercise, activity tolerance, functional activities, coordination), UE Funct Exercise/Act, UE Neuromus Re-Ed/Coord, W/C Management Training Treatment Duration: Nov 17, 2016 Visits Per Week: 10-11 Minutes/Day (M-F): 75-90 Minutes/Day (Sat/Cotter): PRN Agreement: Yes Rehab Potential: Fair Time/GCodes Start Time: 10:00 Stop Time: 11:10 Total Time Billed (hr/min): 70 Billed Treatment Time visit, 70 minutes THAI VALENCIA OT Oct 23, 2016 12:45
--- NOTE | 2016-10-23 14:17 | Therapy Group Daily Note ---
Therapy Daily Group Note Patient Education Topic Home Safety Exercises LE Seated Exercise, UE Exercise Other/Notes Patient participated in group therapy in the common area of rehab. Each patient ambulated or was transported to the common area of rehab and patients sat in a [place]. Each patient then had to introduce themselves, state where they were from and recall a specific memory from the past. Patient's had active participation in a discussion about home safety. Each patient participated and interjected ideas and answers. Interspersed throughout the discussion were upper and lower extremity exercises. Afterward, patients ambulated or were transported back to their rooms and placed in bed or chair with nurse call, phone, tray, all needs met. Start Time: 13:00 Stop Time: 14:00 Total Billed Treatment Time: 60 Total Billed Treatment 1 visit GRP 60CATALINA SOLORIO PT Oct 23, 2016 14:17
[2016-10-23 18:00] VITALS: BP 153/89
[2016-10-24] MEDS: HYDROcodone/APAP 10 MG/325 MG (LORTAB) TAB PO PRN ×5 (01:44→20:20)
[2016-10-24 06:03] VITALS: BP 163/98
[2016-10-24] MEDS: MULTIVIT W/MINERALS TAB (THERAGRAN M) PO SCH (06:25)
[2016-10-24] MEDS: metFORMIN 500 MG (GLUCOPHAGE) TAB PO SCH ×2 (06:25→17:33)
[2016-10-24] MEDS: LACTULOSE SYRUP 10GM/15ML (ENULOSE) 30ML UDC PO SCH ×2 (09:24→20:19)
[2016-10-24] MEDS: HYDROCHLOROTHIAZIDE 25 MG (HCTZ) TAB PO SCH (09:24)
[2016-10-24] MEDS: SENNA W/DOCUSATE (SENOKOT S) TABLET PO SCH ×2 (09:24→20:20)
[2016-10-24] MEDS: VERAPAMIL 80 MG (ISOPTIN) TAB PO SCH ×2 (09:24→20:19)
[2016-10-24] MEDS: POLYETHYLENE GLYCOL 17 GM (MIRALAX) PACK PO SCH ×2 (09:25→20:19)
[2016-10-24] MEDS: inSUlin (REGULAR) HUMAN 1 UNIT/0.01 ML (CHARGE PER UNIT) SC SCH ×3 (09:26→18:58)
--- NOTE | 2016-10-24 11:55 | Occupational Ther Daily Note ---
OT Current Status-Daily Note Subjective Pt in bed, agrees to treatment. Pt reports 5/10 pain in shoulder, left hip and knee. Mental Status/Objective Functional [place] Measure 0=Not Assessed/NA 4=Minimal Assistance 1=Total Assistance 5=Supervision or Setup 2=Maximal Assistance 6=Modified [place] 3=Moderate Assistance 7=Complete [place] ADL-Treatment Functional [place] Measure 0=Not Assessed/NA 4=Minimal Assistance 1=Total Assistance 5=Supervision or Setup 2=Maximal Assistance 6=Modified [place] 3=Moderate Assistance 7=Complete IndependenceIRFPAI Quality Coding Scale 6 Independent with activity with or without an assistive device 5 Patient requires set up or clean up by helper. Patient completes activity by themselves 4 Supervision or touching assist (CGA). [place] provide cues , steadying assist 3 The helper provides less than half the effort to complete the activity 2 The helper provides more than half the effort to complete the activity 1 Dependent. The helper does all the effort to complete an activity 7 Patient refused to complete or attempt activity 9 The patient did not perform the activity before the current illness or injury 88 Not attempted due to Medical conditions or safety concerns Other Treatment Pt participated in UE activity to promote increased ROM and strength. AAROM completed at right shoulder, elbow, and forearm. Pt demonstrates ability to perform movements actively with left UE. Skilled facilitation with tapping to right wrist extensors to promote increased wrist extension. Pt able to actively flex fingers, but unable to fully extend fingers; requires assist to achieve functional ROM. Pt resting in bed with needs met after session. OT Short Term Goals Short Term Goals Time Frame: Nov 03, 2016 Eating(FIM): 5 Grooming(FIM): 5 Upper Body Dressing(FIM): 4 Toileting(FIM): 2 Toilet/Commode Transfer(FIM): 3 Additional Short Term Goals: 1-Demonstrate ADL Tasks, 2-Verbalize Understanding , 3-ImproveStrength/Fady 1=Demonstrate adherence to instructed precautions during ADL tasks. 2=Patient will verbalize/demonstrate understanding of assistive devices/ modifications for ADL. 3=Patient will improve strength/tolerance for activity to enable patient to perform ADL's. OT Long-Term Goals Adjunct Art History Instructor Goals Time Frame: Nov 17, 2016 Eating (FIM): 6 Eating (QC): 6 Groomin Oral Hygiene (QC): 6 Bathing(FIM): 5 (SBA, supervision) Shower/Bathe Self (QC): 4 Upper Body Dressing(FIM): 5 Upper Body Dressing (QC): 5 Lower Body Dressing(FIM): 5 Lower Body Dressing (QC): 4 On/Off Footwear (QC): 4 Toileting(FIM): 5 Toileting Hygiene (QC): 4 Toilet/Commode Transfer(FIM): 5 Toilet/Commode Transfer (QC): 4 Shower Transfer(FIM): 5 Additional Goals: 1-Demonstrate ADL Tasks, 2-Verbalize Understanding, 3- ImproveStrength/Fady 1=Demonstrate adherence to instructed precautions during ADL tasks. 2=Patient will verbalize/demonstrate understanding of assistive devices/ modifications for ADL. 3=Patient will improve strength/tolerance for activity to enable patient to perform ADL's. OT Education/Plan Problem List/Assessment Pt would benefit from skilled OT to increase her independence in basic self care to allow him to safely return to his home and decrease caregiver burden Discharge Recommendations Plan/Recommendations: Continue POC Treatment Plan/Plan of Care Patient would benefit from OT for education, treatment and training to promote independence in ADL's, mobility, safety and/or upper extremity function for ADL' s. Plan of Care: ADL Retraining, Functional Mobility, Group Exercise/Act as Ind ( education, exercise, activity tolerance, functional activities, coordination), UE Funct Exercise/Act, UE Neuromus Re-Ed/Coord, W/C Management Training Treatment Duration: Nov 17, 2016 Visits Per Week: 10-11 Minutes/Day (M-F): 75-90 Minutes/Day (Sat/Cotter): PRN Agreement: Yes Rehab Potential: Fair Time/GCodes Start Time: 11:25 Stop Time: 11:45 Total Time Billed (hr/min): 20 Billed Treatment Time 1 visit, EX(20minutes) CELESTINE LAN OT Oct 24, 2016 11:55
--- NOTE | 2016-10-24 12:09 | Physical Therapy Daily Note ---
PT Daily Note-Current Subjective Pt requests to use the Lite Gait as he felt it is the most beneficial thing he has done for quite some time. Mental Status Patient Orientation: Normal For Age Transfers Functional [place] Measure 0=Not Assessed/NA 4=Minimal Assistance 1=Total Assistance 5=Supervision or Setup 2=Maximal Assistance 6=Modified [place] 3=Moderate Assistance 7=Complete IndependenceIRFPAI Quality Coding Scale 6 Independent with activity with or without an assistive device 5 Patient requires set up or clean up by helper. Patient completes activity by themselves 4 Supervision or touching assist (CGA). [place] provide cues , steadying assist 3 The helper provides less than half the effort to complete the activity 2 The helper provides more than half the effort to complete the activity 1 Dependent. The helper does all the effort to complete an activity 7 Patient refused to complete or attempt activity 9 The patient did not perform the activity before the current illness or injury 88 Not attempted due to Medical conditions or safety concerns Transfers (B, C, W/C) (FIM): 1 Supine to/from Sit: 2 Sit to/from Stand: 1 2 bed to w/c transfers with [employer] lift, w/c to commode Max Assist of 1, Sit to stand x 2 with lite gait, stand pivot w/c to mat Max A; Worked sit to supine on the mat with MAX assist, instruction on bed mobility. Required assist of 2 to return to bed. Gait Training Gait (FIM): 1 Distance (FIM): 1=up to 49 ft Distance: 15 In Lite Gait Ambulated 15 ft x 2 trials with assist to advance LiteGait. Pt was able to advance his LEs with approximately 85% of wt reduced. Gait was scissored and pt had flexor tone in the knees at initial stance. Assessment Current Status: Fair Progress Pt notes his walking with the LiteGait seemed better. He continues to have poor control of LEs and trunk. PT Short Term Goals Short Term Goals Time Frame: Oct 27, 2016 Gait (FIM): 1 Gait Distance Comment: 8' Gait Level of Assist: 3 Wheelchair (FIM): 6 Wheelchair Distance: 200'x2 PT Nursing Home Goals Field Representatives Director Goals PT Nursing Home Goals Time Frame: Nov 10, 2016 Transfers (B,C,W/C) (FIM): 4 Sit to Lying (QC): 3 Lying-Sitting on Side/Bed(QC): 3 Sit to Stand (QC): 3 Rollin Roll Left to Right (QC): 3 Chair/Lhl-qj-Squyc Xfer(QC): 3 Car Transfer (QC): 3 Gait (FIM): 1 Distance: 20' Walk 10 feet (QC): 3 Walk 10ft-Uneven Surface(QC): 88 Walk 50ft with 2 Turns (QC): 88 Walk 150 ft (QC): 88 Gait Level of Assist: 4 Gait Assistive Device: FWW Wheelchair (FIM): 6 Distance: 500' Wheel 50 feet with 2 turns (QC: 6 PT Plan Problem List Problem List: Activity Tolerance, Functional Strength, Safety, Balance, Gait, Transfer, Bed Mobility Treatment/Plan Treatment Plan: Continue Plan of Care Treatment Plan: Bed Mobility, Education, Functional Activity Fady, Functional Strength, Group Therapy, Gait, Safety, Therapeutic Exercise, Transfers Treatment Duration: Nov 10, 2016 Visits Per Week: 10-11 Minutes/Day (M-F): 60-90 Minutes/Day (Sat/Cotter): 15-30 Safety Risks/Education Patient Education: Gait Training Teaching Recipient: Patient Teaching Methods: Demonstration Response to Teaching: Verbalize Understanding Time/GCodes Time In: 0950 Time Out: 1030 Total Billed Treatment Time: 50 Total Billed Treatment visit, FA 30 min, gait 20 min JAG MANZANO PT Oct 24, 2016 12:09
[2016-10-24 17:27] VITALS: BP 151/52
[2016-10-25] MEDS: HYDROcodone/APAP 10 MG/325 MG (LORTAB) TAB PO PRN ×6 (00:23→21:54)
[2016-10-25 05:30] VITALS: BP 153/97
[2016-10-25] MEDS: metFORMIN 500 MG (GLUCOPHAGE) TAB PO SCH ×2 (09:33→17:50)
[2016-10-25] MEDS: MULTIVIT W/MINERALS TAB (THERAGRAN M) PO SCH (09:33)
[2016-10-25] MEDS: SENNA W/DOCUSATE (SENOKOT S) TABLET PO SCH ×2 (09:34→20:59)
[2016-10-25] MEDS: VERAPAMIL 80 MG (ISOPTIN) TAB PO SCH ×2 (10:07→20:58)
[2016-10-25] MEDS: HYDROCHLOROTHIAZIDE 25 MG (HCTZ) TAB PO SCH (10:07)
[2016-10-25] MEDS: inSUlin (REGULAR) HUMAN 1 UNIT/0.01 ML (CHARGE PER UNIT) SC SCH ×3 (10:09→18:35)
[2016-10-25] MEDS: LACTULOSE SYRUP 10GM/15ML (ENULOSE) 30ML UDC PO SCH ×2 (10:11→20:59)
[2016-10-25] MEDS: POLYETHYLENE GLYCOL 17 GM (MIRALAX) PACK PO SCH ×2 (10:11→20:59)
[2016-10-25 18:16] VITALS: BP 159/95
[2016-10-26] MEDS: HYDROcodone/APAP 10 MG/325 MG (LORTAB) TAB PO PRN ×5 (02:00→20:30)
[2016-10-26 04:44] VITALS: BP 155/95
[2016-10-26] MEDS: MULTIVIT W/MINERALS TAB (THERAGRAN M) PO SCH (06:17)
[2016-10-26] MEDS: metFORMIN 500 MG (GLUCOPHAGE) TAB PO SCH ×2 (06:17→17:58)
[2016-10-26] MEDS: POLYETHYLENE GLYCOL 17 GM (MIRALAX) PACK PO SCH ×2 (09:06→19:58)
[2016-10-26] MEDS: LACTULOSE SYRUP 10GM/15ML (ENULOSE) 30ML UDC PO SCH ×2 (09:06→19:58)
[2016-10-26] MEDS: HYDROCHLOROTHIAZIDE 25 MG (HCTZ) TAB PO SCH (09:27)
[2016-10-26] MEDS: inSUlin (REGULAR) HUMAN 1 UNIT/0.01 ML (CHARGE PER UNIT) SC SCH ×3 (09:27→20:01)
[2016-10-26] MEDS: VERAPAMIL 80 MG (ISOPTIN) TAB PO SCH ×2 (09:27→20:30)
[2016-10-26] MEDS: SENNA W/DOCUSATE (SENOKOT S) TABLET PO SCH ×2 (09:27→19:59)
--- NOTE | 2016-10-26 09:59 | Physical Therapy Daily Note ---
PT Daily Note-Current Subjective Patient needs help with bedside commode, has pain of 6/10 in neck. Appearance Patient in power chair post tx, he is mod I with wheelchair mobility. Mental Status Patient Orientation: Normal For Age cervical collar Transfers Functional [place] Measure 0=Not Assessed/NA 4=Minimal Assistance 1=Total Assistance 5=Supervision or Setup 2=Maximal Assistance 6=Modified [place] 3=Moderate Assistance 7=Complete IndependenceIRFPAI Quality Coding Scale 6 Independent with activity with or without an assistive device 5 Patient requires set up or clean up by helper. Patient completes activity by themselves 4 Supervision or touching assist (CGA). [place] provide cues , steadying assist 3 The helper provides less than half the effort to complete the activity 2 The helper provides more than half the effort to complete the activity 1 Dependent. The helper does all the effort to complete an activity 7 Patient refused to complete or attempt activity 9 The patient did not perform the activity before the current illness or injury 88 Not attempted due to Medical conditions or safety concerns Transfers (B, C, W/C) (FIM): 2 Sit to/from Stand: 2 Bed to/from Chair: 2 Patient and therapist used a sit to stand machine to get patient from commode and he stood in it for cleaning and to pull his pants up and to transfer to his power chair. He did perform a couple of stand pivot transfers to the stepper and back, and he did this with max assist. He has not been able to use his arms to help much. Wheelchair Training Does the Pt Use a Wheelchair?: Yes Wheelchair (FIM): 6 Distance: 500' Type of Wheelchair: Motorized Exercises NuStep Minutes: 15 NuStep Workload: 4 Treatments transfers, patient was toileted once, wheelchair mobility, functional strengthening Assessment Current Status: Fair Progress Patient liked the stepper a lot because he felt it did a good job working out his legs. Patient had to perform a lot of positioning and transfers this morning for toileting and to get on and off the stepper. PT Short Term Goals Short Term Goals Time Frame: Oct 27, 2016 Gait (FIM): 1 Gait Distance Comment: 8' Gait Level of Assist: 3 Wheelchair (FIM): 6 Wheelchair Distance: 200'x2 PT Wax Pattern Repairer Goals Wax Pattern Repairer Goals PT [facility] Goals Time Frame: Nov 10, 2016 Transfers (B,C,W/C) (FIM): 4 Sit to Lying (QC): 3 Lying-Sitting on Side/Bed(QC): 3 Sit to Stand (QC): 3 Rollin Roll Left to Right (QC): 3 Chair/Fdi-yj-Eornl Xfer(QC): 3 Car Transfer (QC): 3 Gait (FIM): 1 Distance: 20' Walk 10 feet (QC): 3 Walk 10ft-Uneven Surface(QC): 88 Walk 50ft with 2 Turns (QC): 88 Walk 150 ft (QC): 88 Gait Level of Assist: 4 Gait Assistive Device: FWW Wheelchair (FIM): 6 Distance: 500' Wheel 50 feet with 2 turns (QC: 6 PT Plan Problem List Problem List: Activity Tolerance, Functional Strength, Safety, Balance, Gait, Transfer, Bed Mobility, ROM Treatment/Plan Treatment Plan: Continue Plan of Care Treatment Plan: Bed Mobility, Education, Functional Activity Fady, Functional Strength, Group Therapy, Gait, Safety, Therapeutic Exercise, Transfers Treatment Duration: Nov 10, 2016 Visits Per Week: 10-11 Minutes/Day (M-F): 60-90 Minutes/Day (Sat/Cotter): 15-30 Safety Risks/Education Patient Education: Transfer Techniques, Correct Positioning, W/C Management, Safety Issues Teaching Recipient: Patient Teaching Methods: Demonstration, Discussion Response to Teaching: Reinforcement Needed Time/GCodes Time In: 900 Time Out: 1000 Total Billed Treatment Time: 60 Total Billed Treatment 1 visit [facility] 10' EX 15' FA 35' CATALINA RUBI PT Oct 26, 2016 09:59
--- NOTE | 2016-10-26 10:15 | Progress Note (SOAP) ---
ADELE BAUGH MEDICAL STUDENT 10/26/16 1015: Subjective HPI/CC On Admission Date Seen by Provider: Oct 26, 2016 Time Seen by Provider: 09:30 CC: Medical management following cervical spine surgery HPI: This is a 61-year-old white male that had an uncomplicated cervical spine surgery by Dr. Atkinson on 10/13/16 because of spinal cord compression causing upper and lower extremity weakness with severe radiculopathy and neuropathy and inability to walk. He was seen in the emergency room via [facility] and sent over to Dr. Atkinson's office who evaluated the patient to be in a surgical urgency and underwent cervical spine decompression surgery with hardware placement in an uncomplicated manner on 10/15/16. 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 He has a history of AMY compliant with CPAP, hypertension, osteoarthritis and diabetes mellitus insulin- dependent. He had an uncomplicated course at [facility] and [place], [place] of which I saw him most days of admission following along for medical management. He did have severe fecal impaction with severe constipation due to the spinal cord compression situation in addition to narcotic bowel that was resolved after soapsuds enema given at [facility] yesterday. BM regimen will be initiated. Subjective/Events-last exam Today patient is complaining of progressive right arm weakness. Has been getting worse over the past few days. Claims to not be able to raise right arm as high as left arm and can't squeeze anything with right hand. Claims right shoulder still has pain. Patient also complains of severe muscle spasms in his legs and back when he tries to lie down after sitting up for a long period of time. Claims they last a few seconds and cause significant pain. Patient must use wheelchair to move. Patient claims to be eating well, is having a bowel movement every day, and has no issues with urination. Review of Systems Musculoskeletal: neck pain, shoulder pain Neurological: Weakness (Weakness in Right Arm) Objective Exam Vital Signs Vital Sign - Last 12Hours 10/20/16 06:00 Temp 98.2 Pulse 96 Resp 18 B/P (MAP) 130/90 Pulse Ox 94 O2 Delivery Room Air Capillary Refill : Less Than 3 Seconds KEANU LI DO 10/26/16 1025: Subjective HPI/CC On Admission Time Seen by Provider: 10:00 Subjective/Events-last exam Patient is doing well other than the right arm weakness that had been doing well originally since surgery Bowels are moving and urination is normal Will decrease insulin since hypoglycemia episodes are noted to be occurring and he is on a strict diet while hospitalized. No fever, vital signs stable, pleasant Regular rate and rhythm, clear to all station bilaterally No edema Right arm weakness noted Assessment: Status post cervical spine surgery due to spinal cord compression urgent surgery completed uncomplicated Residual upper and lower extremity weakness wheelchair-bound currently Diabetes mellitus with hypoglycemia episodes we'll titrate insulin down Hypertension Sleep apnea Decrease insulin Monitor closely Confer with spine surgery Objective Exam Vital Signs Vital Sign - Last 12Hours 10/20/16 06:00 Temp 98.2 Pulse 96 Resp 18 B/P (MAP) 130/90 Pulse Ox 94 O2 Delivery Room Air General Appearance: WD/WN, Chronically ill Eyes: Bilateral Eye EOMI, Bilateral Eye Normal Inspection, Bilateral Eye PERRL HEENT: PERRL/EOMI, TMs Normal, Normal ENT Inspection, Pharynx Normal Neck: Full Range of Motion, Non Tender, Supple Respiratory: Chest Non Tender, Lungs Clear, Normal Breath Sounds, No Accessory Muscle Use, No Respiratory Distress Cardiovascular: Regular Rate, Rhythm, No Edema, No Gallop, No JVD, No Murmur, Normal Peripheral Pulses Gastrointestinal: Normal Bowel Sounds, No Organomegaly, No Pulsatile Mass, Non Tender, Soft Back: Normal Inspection, No CVA Tenderness, No Vertebral Tenderness Extremity: Normal Capillary Refill, Normal Inspection, Normal Range of Motion, Non Tender, No Calf Tenderness, No Pedal Edema Neurologic/Psychiatric: Alert, Oriented x3, No Motor/Sensory Deficits, Normal Mood/Affect, Motor Weakness Skin: Normal Color, Warm/Dry Lymphatic: No Adenopathy Assessment/Plan Assessment and Plan Assess & Plan/Chief Complaint see above ADELE BAUGH MEDICAL STUDENT Oct 26, 2016 10:15 KEANU LI DO Oct 26, 2016 10:25
--- NOTE | 2016-10-26 12:20 | Occupational Ther Daily Note ---
OT Current Status-Daily Note Subjective Pt seen in room, reporting R hand is not working as well as last week ("It's useless."). No pain mentioned. Appearance Alert, cooperative Mental Status/Objective Functional [place] Measure 0=Not Assessed/NA 4=Minimal Assistance 1=Total Assistance 5=Supervision or Setup 2=Maximal Assistance 6=Modified [place] 3=Moderate Assistance 7=Complete [place] ADL-Treatment Pt's right hand appeared a little edematous and he was unable to close fingers closer than about 1 inch from DPC. He also was unable to hold spoon with built- up handle with R hand. Attempted to support wrist in extension with eh wrap in figure of 8 wrap but it was unsuccessful. Pt needed help to order breakfast and to set it up. He could not feed himself anything with R hand but could scoop eggs and oatmeal with L hand (difficulty at times getting food on to spoon so tried place guard, which worked well). He could eat garcias with L hand. Pt also wanted to shave and required setup, using dandruff shampoo on face, per his request. He used a buildup handle on razor and was able to shave about 50% of face/neck. He had difficulty changing the angle of the razor, in his L hand. Assistance needed to wash face and to complete shaving. Asked nursing to order R wrist splint and will try ADLs with support for R wrist in extension. Pt left up in power chair, all needs met. Functional [place] Measure 0=Not Assessed/NA 4=Minimal Assistance 1=Total Assistance 5=Supervision or Setup 2=Maximal Assistance 6=Modified [place] 3=Moderate Assistance 7=Complete IndependenceIRFPAI Quality Coding Scale 6 Independent with activity with or without an assistive device 5 Patient requires set up or clean up by helper. Patient completes activity by themselves 4 Supervision or touching assist (CGA). [place] provide cues , steadying assist 3 The helper provides less than half the effort to complete the activity 2 The helper provides more than half the effort to complete the activity 1 Dependent. The helper does all the effort to complete an activity 7 Patient refused to complete or attempt activity 9 The patient did not perform the activity before the current illness or injury 88 Not attempted due to Medical conditions or safety concerns Eating (FIM): 4 Grooming (FIM): 3 Education OT Patient Education: Modified ADL techniques, Purpose of tx/functional activities, Use of adapted equipment Teaching Recipient: Patient Teaching Methods: Demonstration, Discussion Response to Teaching: Verbalize Understanding, Return Demonstration OT Short Term Goals Short Term Goals Time Frame: Nov 03, 2016 Eating(FIM): 5 Grooming(FIM): 5 Upper Body Dressing(FIM): 4 Toileting(FIM): 2 Toilet/Commode Transfer(FIM): 3 Additional Short Term Goals: 1-Demonstrate ADL Tasks, 2-Verbalize Understanding , 3-ImproveStrength/Fady 1=Demonstrate adherence to instructed precautions during ADL tasks. 2=Patient will verbalize/demonstrate understanding of assistive devices/ modifications for ADL. 3=Patient will improve strength/tolerance for activity to enable patient to perform ADL's. OT [facility] Goals Scabbler Goals Time Frame: Nov 17, 2016 Eating (FIM): 6 Eating (QC): 6 Groomin Oral Hygiene (QC): 6 Bathing(FIM): 5 (SBA, supervision) Shower/Bathe Self (QC): 4 Upper Body Dressing(FIM): 5 Upper Body Dressing (QC): 5 Lower Body Dressing(FIM): 5 Lower Body Dressing (QC): 4 On/Off Footwear (QC): 4 Toileting(FIM): 5 Toileting Hygiene (QC): 4 Toilet/Commode Transfer(FIM): 5 Toilet/Commode Transfer (QC): 4 Shower Transfer(FIM): 5 Additional Goals: 1-Demonstrate ADL Tasks, 2-Verbalize Understanding, 3- ImproveStrength/Fday 1=Demonstrate adherence to instructed precautions during ADL tasks. 2=Patient will verbalize/demonstrate understanding of assistive devices/ modifications for ADL. 3=Patient will improve strength/tolerance for activity to enable patient to perform ADL's. OT Education/Plan Problem List/Assessment Pt would benefit from skilled OT to increase her independence in basic self care to allow him to safely return to his home and decrease caregiver burden Discharge Recommendations Plan/Recommendations: Continue POC Treatment Plan/Plan of Care Patient would benefit from OT for education, treatment and training to promote independence in ADL's, mobility, safety and/or upper extremity function for ADL' s. Plan of Care: ADL Retraining, Functional Mobility, Group Exercise/Act as Ind ( education, exercise, activity tolerance, functional activities, coordination), UE Funct Exercise/Act, UE Neuromus Re-Ed/Coord, W/C Management Training Treatment Duration: Nov 17, 2016 Visits Per Week: 10-11 Minutes/Day (M-F): 75-90 Minutes/Day (Sat/Cotter): PRN Agreement: Yes Rehab Potential: Fair Time/GCodes Start Time: 10:00 Stop Time: 11:00 Total Time Billed (hr/min): 60 Billed Treatment Time visit, 60 min ADL THAI HOOVER OT Oct 26, 2016 12:20
--- NOTE | 2016-10-26 15:11 | Therapy Group Daily Note ---
Therapy Daily Group Note Patient Education Topic Home Safety Exercises LE Seated Exercise, UE Exercise Other/Notes Pt maneuvered motorized w/c to OT/PT group. OT/PT group consisted of introductions (name, place living, first $ earned), socialization, UE/LE seated exercises, home safety, adaptive equipment, and problem solving photos of unsafe situations around the home. Pt was able to introduce self appropriately. Pt contributed to each discussion and verbalized understanding of home safety and the use of adaptive equipment. Pt was able to participate with assistance in UE/LE seated exercises. Pt maneuvered motorized w/c back to room. After group, pt sitting in w/c with call light/phone in reach. All needs met in room. Start Time: 13:00 Stop Time: 14:15 Total Billed Treatment Time: 75 Total Billed Treatment 1-GRP PREMA MEJIAS Oct 26, 2016 15:11
[2016-10-26] MEDS ORDERED: inSUlin (REGULAR) HUMAN 1 UNIT/0.01 ML (CHARGE PER UNIT) SC SCH (16:00)
--- NOTE | 2016-10-26 17:09 | Diagnostic Imaging Report ---
PROCEDURE: CT cervical spine without contrast. TECHNIQUE: Multiple contiguous axial images were obtained through the cervical spine without the use of intravenous contrast. Sagittal and coronal reformations were then performed. INDICATION: Increased weakness. FINDINGS: There is anterior fusion hardware involving C3 through C7 with evidence of C6 corpectomy. There is suggestion of osseous bridging at C5 through C7 levels with no definite osseous bridging seen at the C3/4 and C4/5 levels at this point. There are bilateral advanced facet joint degenerative changes. Degenerative changes along the atlantodental joint are also seen with no widening of the predental interval. Fusion of the right C2/3 facet joint is noted. There is no fracture seen. No evidence of high-grade cervical spine canal stenosis based on this exam without intrathecal contrast. The foramina demonstrate severe stenosis on the right at C2/3, mild stenosis on the right at C3/4 and severe stenosis on the left, bilateral moderate stenosis at C4/5, and severe stenosis on the right side at C5/6. There is also severe stenosis on the right at C6/7 level and [id number] stenosis bilaterally at C7/T1. IMPRESSION: Post anterior fusion changes of C3 through C7 and C6 corpectomy are seen. There is multilevel advanced neural foramina stenosis. Dictated by: Dictated on workstation # [id number]
[2016-10-26 18:59] VITALS: BP 162/89
--- NOTE | 2016-10-26 21:20 | PM & R (SOAP) Progress Note ---
Subjective Time Seen by Provider: 20:25 Subjective/Events-last exam Patient was seen in his room this evening C/O worsening weakness in rt arm with demonstrated increased weaknee as compared to last week DR Atkinson informed and CT C Spine ordered Reviewed report DR Atkinson to followup Patient max assist for transfers Review of Systems Musculoskeletal: leg pain Neurological: Weakness Objective Exam Last Set of Vital Signs Vital Signs Date Time Temp Pulse Resp B/P (MAP) Pulse Ox O2 Delivery O2 Flow Rate FiO2 10/26/16 18:59 98.5 84 18 162/89 97 Room Air Capillary Refill : Less Than 3 Seconds I&O Intake and Output 10/26/16 00:00 Intake Total 1650 ml Output Total 700 ml Balance 950 ml Intake Oral 1650 ml Output Urine Total 700 ml # Voids 5 # Bowel Movements 1 General: Alert, Oriented X3, Cooperative, No Acute Distress HEENT: Atraumatic, PERRLA, EOMI, Mucous Memb Moist/[place] Neck: Other (Rigid C collar in place [place] dressing dry and intact) Lungs: Clear to Auscultation Heart: Regular Rate Abdomen: Normal Bowel Sounds, Soft, No Tenderness Extremities: No Edema Skin: Other (incusion coverered/Rt heel diabetic ulcer heeled as per DR Finch) Neuro: Other (Decreased sensation in feet and numbness in hands Weak rt wrist and hand extensors and 3-/5 strength in legs) Results Lab Laboratory Tests 10/23/16 21:20: Glucometer 249H 10/24/16 06:24: Glucometer 141H 10/24/16 10:50: Glucometer 150H 10/24/16 16:12: Glucometer 84 10/24/16 17:26: Glucometer 124H 10/24/16 21:03: Glucometer 50*L 10/24/16 21:44: Glucometer 96 10/25/16 05:29: Glucometer 119H 10/25/16 11:00: Glucometer 161H 10/25/16 15:58: Glucometer 97 10/25/16 18:22: Glucometer 74 10/25/16 21:54: Glucometer 122H 10/26/16 06:16: Glucometer 124H 10/26/16 11:44: Glucometer 190H 10/26/16 16:05: Glucometer 74 10/26/16 20:42: Glucometer 147H Assessment/Plan Assessment S/P decompression Cervical Spine stenosis with myelopathy with increased weakness rt arm DM meds adjusted Rt heel diabetic ulcer healed AMY on cpap HTN controlled Painful left knee-OA left knee Plan Continue PT/OT/Pain management F/u with Dr Duvall and Stef and [place] prn Adjust diabetic meds as needed Rigid C collar on at all times except when eating as OKD by DR Atkinson Team Conference 10-21-16- See report for full functional update and POC and ELOS Recheck Xray left knee-Has seen DR Pepe Vicente in [place] prior to this-done OA left knee F/U with DR Atkinson re CT C Spine results Next Team Conference 10/28/16 JOSEY SALINAS MD Oct 26, 2016 21:20
[2016-10-27] MEDS: HYDROcodone/APAP 10 MG/325 MG (LORTAB) TAB PO PRN ×6 (00:26→22:18)
[2016-10-27 06:00] VITALS: BP 156/94
--- NOTE | 2016-10-27 08:04 | PM & R (SOAP) Progress Note ---
Subjective Time Seen by Provider: 07:30 Subjective/Events-last exam Patient was seen in his room this AM Having spasms in neck and arms with movement of neck and head DR Atkinson to followup Patient max assist for transfers Review of Systems Neurological: Other (spasms), Weakness Objective Exam Last Set of Vital Signs Vital Signs Date Time Temp Pulse Resp B/P (MAP) Pulse Ox O2 Delivery O2 Flow Rate FiO2 10/27/16 06:00 98.8 74 18 156/94 97 Room Air Capillary Refill : Less Than 3 Seconds I&O Intake and Output 10/27/16 00:00 Intake Total 2780 ml Balance 2780 ml Intake Oral 2780 ml # Voids 8 # Bowel Movements 2 General: Alert, Oriented X3, Cooperative, No Acute Distress HEENT: Atraumatic, PERRLA, EOMI, Mucous Memb Moist/[place] Neck: Other (Rigid C collar in place [place] dressing dry and intact) Lungs: Clear to Auscultation Heart: Regular Rate Abdomen: Normal Bowel Sounds, Soft, No Tenderness Extremities: No Edema Skin: Other (incusion coverered/Rt heel diabetic ulcer heeled as per DR Finch) Neuro: Other (Decreased sensation in feet and numbness in hands Weak rt wrist and hand extensors and 3-/5 strength in legs) Results Lab Laboratory Tests 10/24/16 10:50: Glucometer 150H 10/24/16 16:12: Glucometer 84 10/24/16 17:26: Glucometer 124H 10/24/16 21:03: Glucometer 50*L 10/24/16 21:44: Glucometer 96 10/25/16 05:29: Glucometer 119H 10/25/16 11:00: Glucometer 161H 10/25/16 15:58: Glucometer 97 10/25/16 18:22: Glucometer 74 10/25/16 21:54: Glucometer 122H 10/26/16 06:16: Glucometer 124H 10/26/16 11:44: Glucometer 190H 10/26/16 16:05: Glucometer 74 10/26/16 20:42: Glucometer 147H 10/27/16 06:50: Glucometer 133H Assessment/Plan Assessment S/P decompression Cervical Spine stenosis with myelopathy with increased weakness rt arm and signs/ symptoms of myelopathy DM meds adjusted Rt heel diabetic ulcer healed AMY on cpap HTN controlled Painful left knee-OA Plan Continue PT/OT as tolerated Pain management F/u with Dr Duvall and Stef Adjust diabetic meds as needed Rigid C collar on at all times except when eating as OKD by DR Atkinson Team Conference 10-21-16- See report for full functional update and POC and ELOS Recheck Xray left knee-Has seen DR Pepe Vicente in [place] prior to this-done OA left knee F/U with DR Atkinson re CT C Spine results Next Team Conference tomorrow 10/28/16 JOSEY SALINAS MD Oct 27, 2016 08:04
[2016-10-27] MEDS: inSUlin (REGULAR) HUMAN 1 UNIT/0.01 ML (CHARGE PER UNIT) SC SCH ×3 (09:07→19:34)
[2016-10-27] MEDS: metFORMIN 500 MG (GLUCOPHAGE) TAB PO SCH ×2 (09:55→17:26)
[2016-10-27] MEDS: HYDROCHLOROTHIAZIDE 25 MG (HCTZ) TAB PO SCH (09:55)
[2016-10-27] MEDS: VERAPAMIL 80 MG (ISOPTIN) TAB PO SCH ×2 (09:55→19:58)
[2016-10-27] MEDS: LACTULOSE SYRUP 10GM/15ML (ENULOSE) 30ML UDC PO SCH ×2 (09:56→19:57)
[2016-10-27] MEDS: MULTIVIT W/MINERALS TAB (THERAGRAN M) PO SCH (09:56)
[2016-10-27] MEDS: SENNA W/DOCUSATE (SENOKOT S) TABLET PO SCH ×2 (09:56→19:58)
[2016-10-27] MEDS: POLYETHYLENE GLYCOL 17 GM (MIRALAX) PACK PO SCH ×2 (09:56→19:55)
--- NOTE | 2016-10-27 12:52 | Physical Therapy Daily Note ---
PT Daily Note-Current Subjective Patient in power chair pre tx, agrees to PT, has pain of 5/10. Appearance Patient in power chair post tx, he is mod I with wheelchair mobility. Mental Status Patient Orientation: Normal For Age cervical collar Transfers Functional [place] Measure 0=Not Assessed/NA 4=Minimal Assistance 1=Total Assistance 5=Supervision or Setup 2=Maximal Assistance 6=Modified [place] 3=Moderate Assistance 7=Complete IndependenceIRFPAI Quality Coding Scale 6 Independent with activity with or without an assistive device 5 Patient requires set up or clean up by helper. Patient completes activity by themselves 4 Supervision or touching assist (CGA). [place] provide cues , steadying assist 3 The helper provides less than half the effort to complete the activity 2 The helper provides more than half the effort to complete the activity 1 Dependent. The helper does all the effort to complete an activity 7 Patient refused to complete or attempt activity 9 The patient did not perform the activity before the current illness or injury 88 Not attempted due to Medical conditions or safety concerns Transfers (B, C, W/C) (FIM): 2 Sit to/from Stand: 2 Bed to/from Chair: 2 Patient had to perform several stand pivot transfers during tx from the stepper and back, max assist. Exercises Patient stood in the parallel bars x4 with max assist and a second person to help control his right arm. He was able to stand for about a minute each time. NuStep Minutes: 15 NuStep Workload: 4 Treatments transfers, functional strengthening, standing in parallel bars Assessment Current Status: Poor Progress no change in mobility, poor endurance, needs frequent rest breaks PT Short Term Goals Short Term Goals Time Frame: Oct 27, 2016 Gait (FIM): 1 Gait Distance Comment: 8' Gait Level of Assist: 3 Wheelchair (FIM): 6 Wheelchair Distance: 500' PT Longterm Goals Longterm Goals PT Matrix Supervisor Goals Time Frame: Nov 10, 2016 Transfers (B,C,W/C) (FIM): 4 Sit to Lying (QC): 3 Lying-Sitting on Side/Bed(QC): 3 Sit to Stand (QC): 3 Rollin Roll Left to Right (QC): 3 Chair/[id number]-[id number] Xfer(QC): 3 Car Transfer (QC): 3 Gait (FIM): 1 Distance: 20' Walk 10 feet (QC): 3 Walk 10ft-Uneven Surface(QC): 88 Walk 50ft with 2 Turns (QC): 88 Walk 150 ft (QC): 88 Gait Level of Assist: 4 Gait Assistive Device: FWW Wheelchair (FIM): 6 Distance: 500' Wheel 50 feet with 2 turns (QC: 6 PT Plan Problem List Problem List: Activity Tolerance, Functional Strength, Safety, Balance, Gait, Transfer, Bed Mobility, ROM Treatment/Plan Treatment Plan: Continue Plan of Care Treatment Plan: Bed Mobility, Education, Functional Activity Fady, Functional Strength, Group Therapy, Gait, Safety, Therapeutic Exercise, Transfers Treatment Duration: Nov 10, 2016 Visits Per Week: 10-11 Minutes/Day (M-F): 60-90 Minutes/Day (Sat/Cotter): 15-30 Safety Risks/Education Patient Education: Transfer Techniques, Correct Positioning, Safety Issues Teaching Recipient: Patient Teaching Methods: Demonstration, Discussion Response to Teaching: Reinforcement Needed Time/GCodes Time In: 1100 Time Out: 1200 Total Billed Treatment Time: 60 Total Billed Treatment 1 visit EX 15' FA 45' CATALINA RUBI PT Oct 27, 2016 12:52
--- NOTE | 2016-10-27 14:44 | Occupational Ther Daily Note ---
OT Current Status-Daily Note Subjective Pt seen in room, up in bed, eating breakfast. Pt was not able to feed himself due to increased weakness R UE and inability to sit up straight and use L arm because of being in bed. No pain mentioned. Appearance Alert, cooperative Mental Status/Objective Functional [place] Measure 0=Not Assessed/NA 4=Minimal Assistance 1=Total Assistance 5=Supervision or Setup 2=Maximal Assistance 6=Modified [place] 3=Moderate Assistance 7=Complete [place] ADL-Treatment Functional [place] Measure 0=Not Assessed/NA 4=Minimal Assistance 1=Total Assistance 5=Supervision or Setup 2=Maximal Assistance 6=Modified [place] 3=Moderate Assistance 7=Complete IndependenceIRFPAI Quality Coding Scale 6 Independent with activity with or without an assistive device 5 Patient requires set up or clean up by helper. Patient completes activity by themselves 4 Supervision or touching assist (CGA). [place] provide cues , steadying assist 3 The helper provides less than half the effort to complete the activity 2 The helper provides more than half the effort to complete the activity 1 Dependent. The helper does all the effort to complete an activity 7 Patient refused to complete or attempt activity 9 The patient did not perform the activity before the current illness or injury 88 Not attempted due to Medical conditions or safety concerns Eating (FIM): 1 (Unable to feed himself in bed. Pt would benefit from being up in power chair for meals) Bathing (FIM): 2 (Sponge bath in bed and EOB. Unable to do thighs because shorts still on - pt did not want to roll side to side to get them off) Bathing Location: R Arm, Chest, Abdomen Upper Body (FIM): 2 (Help to thread hands in shirt, lynette R one, to get shirt up over head and pulled down. ) Lower Body Dressing (FIM): 2 (Able to pick feet up to put them in pants leg and to pull pants up over thighs. Sit to stand lift to pull pants up.) Toileting (FIM): 1 (Two person - one to manage lift and one to manage clothing and hygiene. Help to wash thighs and kaleb/bottom while up) Transfers (B, C, W/C) (FIM): 1 (sit to stand lift. Has LE spasms and knees flex off lift so often need a couple of trials to get up. Once up, he likes to work on knee extension while on the lift) Toilet/Commode Transfer (FIM): 1 (Sit to stand lift to transfer from EOB to BSC ) Pt left up in chair, all needs met. Education OT Patient Education: Modified ADL techniques, Progress toward Goal/Update tx plan, Purpose of tx/functional activities, Safety issues, Transfer techniques OT Short Term Goals Short Term Goals Time Frame: Nov 03, 2016 Eating(FIM): 5 Grooming(FIM): 5 Upper Body Dressing(FIM): 4 Toileting(FIM): 2 Toilet/Commode Transfer(FIM): 3 Additional Short Term Goals: 1-Demonstrate ADL Tasks, 2-Verbalize Understanding , 3-ImproveStrength/Fady 1=Demonstrate adherence to instructed precautions during ADL tasks. 2=Patient will verbalize/demonstrate understanding of assistive devices/ modifications for ADL. 3=Patient will improve strength/tolerance for activity to enable patient to perform ADL's. OT Group Home Goals Group Home Goals Time Frame: Nov 17, 2016 Eating (FIM): 6 Eating (QC): 6 Groomin Oral Hygiene (QC): 6 Bathing(FIM): 5 (SBA, supervision) Shower/Bathe Self (QC): 4 Upper Body Dressing(FIM): 5 Upper Body Dressing (QC): 5 Lower Body Dressing(FIM): 5 Lower Body Dressing (QC): 4 On/Off Footwear (QC): 4 Toileting(FIM): 5 Toileting Hygiene (QC): 4 Toilet/Commode Transfer(FIM): 5 Toilet/Commode Transfer (QC): 4 Shower Transfer(FIM): 5 Additional Goals: 1-Demonstrate ADL Tasks, 2-Verbalize Understanding, 3- ImproveStrength/Fady 1=Demonstrate adherence to instructed precautions during ADL tasks. 2=Patient will verbalize/demonstrate understanding of assistive devices/ modifications for ADL. 3=Patient will improve strength/tolerance for activity to enable patient to perform ADL's. OT Education/Plan Problem List/Assessment Pt would benefit from skilled OT to increase her independence in basic self care to allow him to safely return to his home and decrease caregiver burden Discharge Recommendations Plan/Recommendations: Continue POC Treatment Plan/Plan of Care Patient would benefit from OT for education, treatment and training to promote independence in ADL's, mobility, safety and/or upper extremity function for ADL' s. Plan of Care: ADL Retraining, Functional Mobility, Group Exercise/Act as Ind ( education, exercise, activity tolerance, functional activities, coordination), UE Funct Exercise/Act, UE Neuromus Re-Ed/Coord, W/C Management Training Treatment Duration: Nov 17, 2016 Visits Per Week: 10-11 Minutes/Day (M-F): 75-90 Minutes/Day (Sat/Cotter): PRN Agreement: Yes Rehab Potential: Fair Time/GCodes Start Time: 08:15 Stop Time: 09:20 Total Time Billed (hr/min): 65 Billed Treatment Time visit, 65 ADL THAI HOOVER OT Oct 27, 2016 14:44
--- NOTE | 2016-10-27 14:46 | Occupational Ther Daily Note ---
OT Current Status-Daily Note Mental Status/Objective Functional [place] Measure 0=Not Assessed/NA 4=Minimal Assistance 1=Total Assistance 5=Supervision or Setup 2=Maximal Assistance 6=Modified [place] 3=Moderate Assistance 7=Complete [place] ADL-Treatment Functional [place] Measure 0=Not Assessed/NA 4=Minimal Assistance 1=Total Assistance 5=Supervision or Setup 2=Maximal Assistance 6=Modified [place] 3=Moderate Assistance 7=Complete IndependenceIRFPAI Quality Coding Scale 6 Independent with activity with or without an assistive device 5 Patient requires set up or clean up by helper. Patient completes activity by themselves 4 Supervision or touching assist (CGA). [place] provide cues , steadying assist 3 The helper provides less than half the effort to complete the activity 2 The helper provides more than half the effort to complete the activity 1 Dependent. The helper does all the effort to complete an activity 7 Patient refused to complete or attempt activity 9 The patient did not perform the activity before the current illness or injury 88 Not attempted due to Medical conditions or safety concerns OT Short Term Goals Short Term Goals Time Frame: Nov 03, 2016 Eating(FIM): 5 Grooming(FIM): 5 Upper Body Dressing(FIM): 4 Toileting(FIM): 2 Toilet/Commode Transfer(FIM): 3 Additional Short Term Goals: 1-Demonstrate ADL Tasks, 2-Verbalize Understanding , 3-ImproveStrength/Fady 1=Demonstrate adherence to instructed precautions during ADL tasks. 2=Patient will verbalize/demonstrate understanding of assistive devices/ modifications for ADL. 3=Patient will improve strength/tolerance for activity to enable patient to perform ADL's. OT Sil[place]r Goals [facility] Goals Time Frame: Nov 17, 2016 Eating (FIM): 6 Eating (QC): 6 Groomin Oral Hygiene (QC): 6 Bathing(FIM): 5 (SBA, supervision) Shower/Bathe Self (QC): 4 Upper Body Dressing(FIM): 5 Upper Body Dressing (QC): 5 Lower Body Dressing(FIM): 5 Lower Body Dressing (QC): 4 On/Off Footwear (QC): 4 Toileting(FIM): 5 Toileting Hygiene (QC): 4 Toilet/Commode Transfer(FIM): 5 Toilet/Commode Transfer (QC): 4 Shower Transfer(FIM): 5 Additional Goals: 1-Demonstrate ADL Tasks, 2-Verbalize Understanding, 3- ImproveStrength/Fady 1=Demonstrate adherence to instructed precautions during ADL tasks. 2=Patient will verbalize/demonstrate understanding of assistive devices/ modifications for ADL. 3=Patient will improve strength/tolerance for activity to enable patient to perform ADL's. OT Education/Plan Problem List/Assessment Pt would benefit from skilled OT to increase her independence in basic self care to allow him to safely return to his home and decrease caregiver burden Discharge Recommendations Plan/Recommendations: Continue POC Treatment Plan/Plan of Care Patient would benefit from OT for education, treatment and training to promote independence in ADL's, mobility, safety and/or upper extremity function for ADL' s. Plan of Care: ADL Retraining, Functional Mobility, Group Exercise/Act as Ind ( education, exercise, activity tolerance, functional activities, coordination), UE Funct Exercise/Act, UE Neuromus Re-Ed/Coord, W/C Management Training Treatment Duration: Nov 17, 2016 Visits Per Week: 10-11 Minutes/Day (M-F): 75-90 Minutes/Day (Sat/Cotter): PRN Agreement: Yes Rehab Potential: Fair Time/GCodes Start Time: 10:15 Stop Time: 11:00 Total Time Billed (hr/min): 45 Billed Treatment Time visit, 45 minutes ADL THAI HOOVER OT Oct 27, 2016 14:46
--- NOTE | 2016-10-27 14:50 | Occupational Ther Daily Note ---
OT Current Status-Daily Note Subjective Pt seen in room, agreeable to OT. No pain mentioned. Appearance Alert, cooperative Mental Status/Objective Functional [place] Measure 0=Not Assessed/NA 4=Minimal Assistance 1=Total Assistance 5=Supervision or Setup 2=Maximal Assistance 6=Modified [place] 3=Moderate Assistance 7=Complete [place] ADL-Treatment Functional [place] Measure 0=Not Assessed/NA 4=Minimal Assistance 1=Total Assistance 5=Supervision or Setup 2=Maximal Assistance 6=Modified [place] 3=Moderate Assistance 7=Complete IndependenceIRFPAI Quality Coding Scale 6 Independent with activity with or without an assistive device 5 Patient requires set up or clean up by helper. Patient completes activity by themselves 4 Supervision or touching assist (CGA). [place] provide cues , steadying assist 3 The helper provides less than half the effort to complete the activity 2 The helper provides more than half the effort to complete the activity 1 Dependent. The helper does all the effort to complete an activity 7 Patient refused to complete or attempt activity 9 The patient did not perform the activity before the current illness or injury 88 Not attempted due to Medical conditions or safety concerns Toileting (FIM): 1 (Two person assist for clothing management and hygiene. BSC , lift) Toilet/Commode Transfer (FIM): 1 (sit to stand lift, tfr from BSC to power chair. pt is able to help direct transfer steps) Other Treatment Pt propelled himself to gym, per power chair. Worked on increasing function R UE , with place and hold, PROM, AAROM. Pt demo trace wrist extension but responds to skilled facilitation. By end of tx, pt was within 1/4" of touching palm with middle, ring and little fingers, 1" with index. Pt educ on finding functional balance between use of hand and passive range (he said he works on straightening fingers on his own). Pt fitted with universal wrist splint to R wrist to hold it in neutral to place fingers in better position to flex to grasp items. Pt able to take himself back to his room. Education OT Patient Education: Progress toward Goal/Update tx plan, Purpose of tx/ functional activities Teaching Recipient: Patient Teaching Methods: Discussion Response to Teaching: Verbalize Understanding OT Short Term Goals Short Term Goals Time Frame: Nov 03, 2016 Eating(FIM): 5 Grooming(FIM): 5 Upper Body Dressing(FIM): 4 Toileting(FIM): 2 Toilet/Commode Transfer(FIM): 3 Additional Short Term Goals: 1-Demonstrate ADL Tasks, 2-Verbalize Understanding , 3-ImproveStrength/Fady 1=Demonstrate adherence to instructed precautions during ADL tasks. 2=Patient will verbalize/demonstrate understanding of assistive devices/ modifications for ADL. 3=Patient will improve strength/tolerance for activity to enable patient to perform ADL's. OT College Director Goals Halfway Goals Time Frame: Nov 17, 2016 Eating (FIM): 6 Eating (QC): 6 Groomin Oral Hygiene (QC): 6 Bathing(FIM): 5 (SBA, supervision) Shower/Bathe Self (QC): 4 Upper Body Dressing(FIM): 5 Upper Body Dressing (QC): 5 Lower Body Dressing(FIM): 5 Lower Body Dressing (QC): 4 On/Off Footwear (QC): 4 Toileting(FIM): 5 Toileting Hygiene (QC): 4 Toilet/Commode Transfer(FIM): 5 Toilet/Commode Transfer (QC): 4 Shower Transfer(FIM): 5 Additional Goals: 1-Demonstrate ADL Tasks, 2-Verbalize Understanding, 3- ImproveStrength/Fady 1=Demonstrate adherence to instructed precautions during ADL tasks. 2=Patient will verbalize/demonstrate understanding of assistive devices/ modifications for ADL. 3=Patient will improve strength/tolerance for activity to enable patient to perform ADL's. OT Education/Plan Problem List/Assessment Pt would benefit from skilled OT to increase her independence in basic self care to allow him to safely return to his home and decrease caregiver burden Discharge Recommendations Plan/Recommendations: Continue POC Treatment Plan/Plan of Care Patient would benefit from OT for education, treatment and training to promote independence in ADL's, mobility, safety and/or upper extremity function for ADL' s. Plan of Care: ADL Retraining, Functional Mobility, Group Exercise/Act as Ind ( education, exercise, activity tolerance, functional activities, coordination), UE Funct Exercise/Act, UE Neuromus Re-Ed/Coord, W/C Management Training Treatment Duration: Nov 17, 2016 Visits Per Week: 10-11 Minutes/Day (M-F): 75-90 Minutes/Day (Sat/Cotter): PRN Agreement: Yes Rehab Potential: Fair Time/GCodes Start Time: 13:35 Stop Time: 14:00 Total Time Billed (hr/min): 25 Billed Treatment Time visit, 10 min ADL, 15 min neuromotor THAI HOOVER OT Oct 27, 2016 14:50
--- NOTE | 2016-10-27 15:06 | Physical Therapy Daily Note ---
PT Daily Note-Current Subjective Pt reports that he would like to try and walk with the lift. Mental Status Patient Orientation: Normal For Age Transfers Functional [place] Measure 0=Not Assessed/NA 4=Minimal Assistance 1=Total Assistance 5=Supervision or Setup 2=Maximal Assistance 6=Modified [place] 3=Moderate Assistance 7=Complete IndependenceIRFPAI Quality Coding Scale 6 Independent with activity with or without an assistive device 5 Patient requires set up or clean up by helper. Patient completes activity by themselves 4 Supervision or touching assist (CGA). [place] provide cues , steadying assist 3 The helper provides less than half the effort to complete the activity 2 The helper provides more than half the effort to complete the activity 1 Dependent. The helper does all the effort to complete an activity 7 Patient refused to complete or attempt activity 9 The patient did not perform the activity before the current illness or injury 88 Not attempted due to Medical conditions or safety concerns Sit to/from Stand: 2 Sit to stand from w/c using lift vest and berenice. Educated on foot placement and placed a walker in front of the patient to facilitate forward trunk lean. Gait Training Gait (FIM): 1 Distance (FIM): 1=up to 49 ft Distance: 8 Gait Level of Assist: 2 Gait Persons Needed: 1 Gait Assistive Device: Handheld Assist ambulated 8ft x 3 trials while wearing the lift vest attached to the overhead lift. Moderate assist to advance the right LE. Education on wt shifting during swing phase and also on keeping his glutes tight and standing upright Exercises Seated Therapy Exercises: Hip flexion Seated Reps: 10 right seated hip flexion exercise to facilitate hip flexion strength needed to advance the right leg during gait Assessment Pt demonstrated ability to initiate steps using wt reducing lift vest. PT Short Term Goals Short Term Goals Time Frame: Oct 27, 2016 Gait (FIM): 1 Gait Distance Comment: 8' Gait Level of Assist: 3 Wheelchair (FIM): 6 Wheelchair Distance: 500' PT Manager Photography Goals Care Home Goals PT Care Home Goals Time Frame: Nov 10, 2016 Transfers (B,C,W/C) (FIM): 4 Sit to Lying (QC): 3 Lying-Sitting on Side/Bed(QC): 3 Sit to Stand (QC): 3 Rollin Roll Left to Right (QC): 3 Chair/Udd-ol-Jeebp Xfer(QC): 3 Car Transfer (QC): 3 Gait (FIM): 1 Distance: 20' Walk 10 feet (QC): 3 Walk 10ft-Uneven Surface(QC): 88 Walk 50ft with 2 Turns (QC): 88 Walk 150 ft (QC): 88 Gait Level of Assist: 4 Gait Assistive Device: FWW Wheelchair (FIM): 6 Distance: 500' Wheel 50 feet with 2 turns (QC: 6 PT Plan Treatment/Plan Treatment Plan: Continue Plan of Care Treatment Plan: Bed Mobility, Education, Functional Activity Fady, Functional Strength, Group Therapy, Gait, Safety, Therapeutic Exercise, Transfers Treatment Duration: Nov 10, 2016 Visits Per Week: 10-11 Minutes/Day (M-F): 60-90 Minutes/Day (Sat/Cotter): 15-30 Safety Risks/Education Patient Education: Gait Training Teaching Recipient: Patient Teaching Methods: Demonstration Response to Teaching: Verbalize Understanding Time/GCodes Time In: 1410 Time Out: 1455 Total Billed Treatment Time: 45 Total Billed Treatment visit, FA 10min, Gait 30min, ex 5 min JAG MANZANO PT Oct 27, 2016 15:06
[2016-10-27 18:05] VITALS: BP 149/85
[2016-10-28] MEDS: HYDROcodone/APAP 10 MG/325 MG (LORTAB) TAB PO PRN ×6 (02:45→23:32)
[2016-10-28 05:19] VITALS: BP 140/97
[2016-10-28] MEDS: metFORMIN 500 MG (GLUCOPHAGE) TAB PO SCH ×2 (06:19→17:16)
[2016-10-28] MEDS: MULTIVIT W/MINERALS TAB (THERAGRAN M) PO SCH (06:20)
[2016-10-28] MEDS: inSUlin (REGULAR) HUMAN 1 UNIT/0.01 ML (CHARGE PER UNIT) SC SCH ×4 (06:44→19:31)
--- NOTE | 2016-10-28 08:33 | PM & R (SOAP) Progress Note ---
Subjective Time Seen by Provider: 08:00 Subjective/Events-last exam Patient was seen in his room this AM Has significant spasms/cramps in lege with movement Rt UE still not at baseline in terms of strength Dr Atkinson to review.Patient max assist for transfers Objective Exam Last Set of Vital Signs Vital Signs Date Time Temp Pulse Resp B/P (MAP) Pulse Ox O2 Delivery O2 Flow Rate FiO2 10/28/16 05:19 98.4 76 16 140/97 98 Room Air Capillary Refill : Less Than 3 Seconds I&O Intake and Output 10/28/16 00:00 Intake Total 1540 ml Output Total 950 ml Balance 590 ml Intake Oral 1540 ml Output Urine Total 250 ml Urine/Stool Mix 700 ml # Voids 3 General: Alert, Oriented X3, Cooperative, No Acute Distress HEENT: Atraumatic, PERRLA, EOMI, Mucous Memb Moist/[place] Neck: Other (Rigid C collar in place [place] dressing dry and intact) Lungs: Clear to Auscultation Heart: Regular Rate Abdomen: Normal Bowel Sounds, Soft, No Tenderness Extremities: No Edema Skin: Other (incusion coverered/Rt heel diabetic ulcer heeled as per DR Finch) Neuro: Other (Decreased sensation in feet and numbness in hands Weak rt wrist and hand extensors and 3-/5 strength in legs) Results Lab Laboratory Tests 10/25/16 11:00: Glucometer 161H 10/25/16 15:58: Glucometer 97 10/25/16 18:22: Glucometer 74 10/25/16 21:54: Glucometer 122H 10/26/16 06:16: Glucometer 124H 10/26/16 11:44: Glucometer 190H 10/26/16 16:05: Glucometer 74 10/26/16 20:42: Glucometer 147H 10/27/16 06:50: Glucometer 133H 10/27/16 10:58: Glucometer 159H 10/27/16 16:19: Glucometer 123H 10/27/16 22:50: Glucometer 127H 10/28/16 05:39: Glucometer 119H Assessment/Plan Assessment S/P decompression Cervical Spine stenosis with myelopathy with increased weakness rt arm and signs/ symptoms of myelopathy (Spasms/cramps) DM meds adjusted Rt heel diabetic ulcer healed AMY on cpap HTN controlled Painful left knee-OA Plan Continue PT/OT as tolerated Pain management F/u with Dr Duvall and Stef Adjust diabetic meds as needed Rigid C collar on at all times except when eating as OKD by DR Puente Recheck Xray left knee-Has seen DR Pepe Vicente in [place] prior to this-done OA left knee F/U with DR Atkinson re CT C Spine results Next Team Conference later today-see report for full functional update and POC and ELOS Trial of baclofen for spasms see orders JOSEY SALINAS MD Oct 28, 2016 08:33
[2016-10-28] MEDS: BACLOFEN 10 MG (LIORESAL) TAB PO SCH ×3 (08:37→21:30)
[2016-10-28] MEDS: LACTULOSE SYRUP 10GM/15ML (ENULOSE) 30ML UDC PO SCH ×2 (08:37→21:31)
[2016-10-28] MEDS: SENNA W/DOCUSATE (SENOKOT S) TABLET PO SCH ×2 (08:37→21:32)
[2016-10-28] MEDS: HYDROCHLOROTHIAZIDE 25 MG (HCTZ) TAB PO SCH (08:38)
[2016-10-28] MEDS: POLYETHYLENE GLYCOL 17 GM (MIRALAX) PACK PO SCH ×2 (08:38→21:31)
[2016-10-28] MEDS: VERAPAMIL 80 MG (ISOPTIN) TAB PO SCH ×2 (08:38→21:30)
--- NOTE | 2016-10-28 09:58 | Physical Therapy Daily Note ---
PT Daily Note-Current Subjective Patient on shower chair pre tx, finishing up with OT, patient has had a lot more weakness in his right arm recently. Appearance Patient in power chair post tx, he is mod I with wheelchair mobility. Mental Status Patient Orientation: Normal For Age cervical collar Transfers Functional [place] Measure 0=Not Assessed/NA 4=Minimal Assistance 1=Total Assistance 5=Supervision or Setup 2=Maximal Assistance 6=Modified [place] 3=Moderate Assistance 7=Complete IndependenceIRFPAI Quality Coding Scale 6 Independent with activity with or without an assistive device 5 Patient requires set up or clean up by helper. Patient completes activity by themselves 4 Supervision or touching assist (CGA). [place] provide cues , steadying assist 3 The helper provides less than half the effort to complete the activity 2 The helper provides more than half the effort to complete the activity 1 Dependent. The helper does all the effort to complete an activity 7 Patient refused to complete or attempt activity 9 The patient did not perform the activity before the current illness or injury 88 Not attempted due to Medical conditions or safety concerns Transfers (B, C, W/C) (FIM): 2 Sit to/from Stand: 2 Bed to/from Chair: 2 Patient did have to perform a couple of sit to stands to get sling on and performed a stand pivot transfer to his power chair. All max assist. Gait Training Gait (FIM): 1 Patient was able to ambulate 8'x5 using the electric ceiling berenice lift and a specific sling. It holds him upright and supports his weight and he is able to take a few steps. Patient has a lot of uncoordination and abnormal tone. Treatments transfers, ambulation Assessment Current Status: Poor Progress no change in mobility PT Short Term Goals Short Term Goals Time Frame: Oct 27, 2016 Gait (FIM): 1 Gait Distance Comment: 8' Gait Level of Assist: 3 Wheelchair (FIM): 6 Wheelchair Distance: 500' PT Prison Goals Prison Goals PT [place] Superintendent Goals Time Frame: Nov 10, 2016 Transfers (B,C,W/C) (FIM): 4 Sit to Lying (QC): 3 Lying-Sitting on Side/Bed(QC): 3 Sit to Stand (QC): 3 Rollin Roll Left to Right (QC): 3 Chair/Cys-tt-Kvxwr Xfer(QC): 3 Car Transfer (QC): 3 Gait (FIM): 1 Distance: 20' Walk 10 feet (QC): 3 Walk 10ft-Uneven Surface(QC): 88 Walk 50ft with 2 Turns (QC): 88 Walk 150 ft (QC): 88 Gait Level of Assist: 4 Gait Assistive Device: FWW Wheelchair (FIM): 6 Distance: 500' Wheel 50 feet with 2 turns (QC: 6 PT Plan Problem List Problem List: Activity Tolerance, Functional Strength, Safety, Balance, Gait, Transfer, Bed Mobility, ROM Treatment/Plan Treatment Plan: Continue Plan of Care Treatment Plan: Bed Mobility, Education, Functional Activity Fady, Functional Strength, Group Therapy, Gait, Safety, Therapeutic Exercise, Transfers Treatment Duration: Nov 10, 2016 Visits Per Week: 10-11 Minutes/Day (M-F): 60-90 Minutes/Day (Sat/[place]): 15-30 Safety Risks/Education Patient Education: Gait Training, Transfer Techniques, Correct Positioning, Safety Issues Teaching Recipient: Patient Teaching Methods: Demonstration, Discussion Response to Teaching: Reinforcement Needed Time/GCodes Time In: 900 Time Out: 1000 Total Billed Treatment Time: 60 Total Billed Treatment 1 visit GT 30' FA 30' CATALINA RUBI PT Oct 28, 2016 09:58
--- NOTE | 2016-10-28 10:47 | Occupational Ther Daily Note ---
OT Current Status-Daily Note Subjective Pt alert, lying in bed. Pt agreed to therapy. No c/o pain. Mental Status/Objective Patient Orientation: Person, Place, Time, Situation Functional [place] Measure 0=Not Assessed/NA 4=Minimal Assistance 1=Total Assistance 5=Supervision or Setup 2=Maximal Assistance 6=Modified [place] 3=Moderate Assistance 7=Complete [place] ADL-Treatment Functional [place] Measure 0=Not Assessed/NA 4=Minimal Assistance 1=Total Assistance 5=Supervision or Setup 2=Maximal Assistance 6=Modified [place] 3=Moderate Assistance 7=Complete IndependenceIRFPAI Quality Coding Scale 6 Independent with activity with or without an assistive device 5 Patient requires set up or clean up by helper. Patient completes activity by themselves 4 Supervision or touching assist (CGA). [place] provide cues , steadying assist 3 The helper provides less than half the effort to complete the activity 2 The helper provides more than half the effort to complete the activity 1 Dependent. The helper does all the effort to complete an activity 7 Patient refused to complete or attempt activity 9 The patient did not perform the activity before the current illness or injury 88 Not attempted due to Medical conditions or safety concerns Grooming (FIM): 2 (Pt unable to hold onto electric toothbrush at this time then assist to comb hair.) Bathing (FIM): 2 (Sitting in rolling w/c, pt required assist to bathe self. Decrease AROM and strength to complete.) Upper Body (FIM): 3 (Assist to thread R arm through sleeve then able to thread L arm through sleeve, assist to bring over head. Assist to doff shirt.) Lower Body Dressing (FIM): 2 (Is able to lift feet when assist to don/doff over feet. Assist to pull up legs and using sit to stand lift assist to hike over hips.) Toileting (FIM): 2 (Assist for hygiene and sit to stand lift used when manipulating pt's clothing.) Transfers (B, C, W/C) (FIM): 2 (Sit to stand lift with assist of 2 people.) Toilet/Commode Transfer (FIM): 2 (Sit to stand lift with assist of 2 people.) Shower Transfer(FIM): 2 (Sit to stand lift with assist of 2 people transfer to rolling shower chair to transfer into shower.) After therapy, pt left in care of PT. All needs met in room. OT Short Term Goals Short Term Goals Time Frame: Nov 03, 2016 Eating(FIM): 5 Grooming(FIM): 5 Upper Body Dressing(FIM): 4 Toileting(FIM): 2 Toilet/Commode Transfer(FIM): 3 Additional Short Term Goals: 1-Demonstrate ADL Tasks, 2-Verbalize Understanding , 3-ImproveStrength/Fady 1=Demonstrate adherence to instructed precautions during ADL tasks. 2=Patient will verbalize/demonstrate understanding of assistive devices/ modifications for ADL. 3=Patient will improve strength/tolerance for activity to enable patient to perform ADL's. OT Shelter Goals Integration Project Manager Goals Time Frame: Nov 17, 2016 Eating (FIM): 6 Eating (QC): 6 Groomin Oral Hygiene (QC): 6 Bathing(FIM): 5 (SBA, supervision) Shower/Bathe Self (QC): 4 Upper Body Dressing(FIM): 5 Upper Body Dressing (QC): 5 Lower Body Dressing(FIM): 5 Lower Body Dressing (QC): 4 On/Off Footwear (QC): 4 Toileting(FIM): 5 Toileting Hygiene (QC): 4 Toilet/Commode Transfer(FIM): 5 Toilet/Commode Transfer (QC): 4 Shower Transfer(FIM): 5 Additional Goals: 1-Demonstrate ADL Tasks, 2-Verbalize Understanding, 3- ImproveStrength/Fady 1=Demonstrate adherence to instructed precautions during ADL tasks. 2=Patient will verbalize/demonstrate understanding of assistive devices/ modifications for ADL. 3=Patient will improve strength/tolerance for activity to enable patient to perform ADL's. OT Education/Plan Problem List/Assessment Pt would benefit from skilled OT to increase her independence in basic self care to allow him to safely return to his home and decrease caregiver burden Discharge Recommendations Plan/Recommendations: Continue POC Treatment Plan/Plan of Care Patient would benefit from OT for education, treatment and training to promote independence in ADL's, mobility, safety and/or upper extremity function for ADL' s. Plan of Care: ADL Retraining, Functional Mobility, Group Exercise/Act as Ind ( education, exercise, activity tolerance, functional activities, coordination), UE Funct Exercise/Act, UE Neuromus Re-Ed/Coord, W/C Management Training Treatment Duration: Nov 17, 2016 Visits Per Week: 10-11 Minutes/Day (M-F): 75-90 Minutes/Day (Sat/Cotter): PRN Agreement: Yes Rehab Potential: Fair Time/GCodes Start Time: 08:00 Stop Time: 09:00 Total Time Billed (hr/min): 60 Billed Treatment Time 1 visit-ADL 4 (60 min) PREMA MEJIAS Oct 28, 2016 10:47
--- NOTE | 2016-10-28 13:43 | Progress Note-Hospitalist ---
Progress Note HPI/CC on Admission CC: Medical management following cervical spine surgery HPI: This is a 61-year-old white male that had an uncomplicated cervical spine surgery by Dr. Atkinson on 10/13/16 because of spinal cord compression causing upper and lower extremity weakness with severe radiculopathy and neuropathy and inability to walk. He was seen in the emergency room via [place] and sent over to Dr. Atkinson's office who evaluated the patient to be in a surgical urgency and underwent cervical spine decompression surgery with hardware placement in an uncomplicated manner on 10/15/16. 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 He has a history of AMY compliant with CPAP, hypertension, osteoarthritis and diabetes mellitus insulin- dependent. He had an uncomplicated course at [facility] and [place], [place] of which I saw him most days of admission following along for medical management. He did have severe fecal impaction with severe constipation due to the spinal cord compression situation in addition to narcotic bowel that was resolved after soapsuds enema given at [facility] yesterday. BM regimen will be initiated. Progress Notes/Assess & Plan Date Seen 10/28/16 Time Seen by Provider: 11:45 Admission Dx/Process Patient doing well overall Weakness remains Bowels are moving No fever vital signs stable, pleasant, improved Regular rate and rhythm, clear to auscultation bilaterally No edema Assessment: Debility following cervical spine surgery due to spinal cord compression causing radiculopathy and neuropathy and inability to walk with arm and leg weakness Diabetic ulcer right foot Diabetes mellitus insulin-dependent Hypertension AMY compliant with sleep apnea treatment Osteoarthritis rehabilitation to continue Diagonsis/Assessment & Plan see above KEANU LI DO Oct 28, 2016 13:43
--- NOTE | 2016-10-28 14:55 | Therapy Group Daily Note ---
Therapy Daily Group Note Patient Education Topic Other List Below (Memory Strategies) Exercises LE Seated Exercise, UE Exercise Other/Notes Pt transferred to [facility] via sit to Stand Lift and propelled motorized WC to Group. Pt participated in PT/OT Group held in Therapy [facility] Area. Group consisted of Introductions (Name, Where you are from and Favorite Summertime Activity), What ARU is and how it works as well as Memory Strategies and which one they use individually, UE/LE Exercises and Memory Activity. Pt actively participated in Group by completing UE/LE Exercises sometimes with assistance and giving an Individual Memory Strategy the pt uses day to day as well as using Memory Strategies to complete Memory Activity at the end of Group. Pt returned to room via [facility] and transferred back to bed via Sit to Stand Lift. Pt lays Supine with all needs met at end of Group. Start Time: 13:00 Stop Time: 14:15 Total Billed Treatment Time: 75 Total Billed Treatment 1, GRP NATHALYGILA KAYE AIRCRAFT DELIVERY CHECKER Oct 28, 2016 14:55
[2016-10-28 17:57] VITALS: BP 165/97
[2016-10-29] MEDS: HYDROcodone/APAP 10 MG/325 MG (LORTAB) TAB PO PRN ×5 (03:32→20:04)
[2016-10-29 06:33] VITALS: BP 175/103
[2016-10-29] MEDS: MULTIVIT W/MINERALS TAB (THERAGRAN M) PO SCH (07:18)
[2016-10-29] MEDS: metFORMIN 500 MG (GLUCOPHAGE) TAB PO SCH ×2 (07:18→19:44)
[2016-10-29 08:07] VITALS: BP 165/87
[2016-10-29] MEDS: BACLOFEN 10 MG (LIORESAL) TAB PO SCH ×4 (08:11→22:16)
[2016-10-29] MEDS: VERAPAMIL 80 MG (ISOPTIN) TAB PO SCH ×2 (08:12→20:00)
[2016-10-29] MEDS: SENNA W/DOCUSATE (SENOKOT S) TABLET PO SCH ×2 (08:12→20:00)
[2016-10-29] MEDS: HYDROCHLOROTHIAZIDE 25 MG (HCTZ) TAB PO SCH (08:12)
[2016-10-29] MEDS: inSUlin (REGULAR) HUMAN 1 UNIT/0.01 ML (CHARGE PER UNIT) SC SCH ×4 (08:19→22:14)
--- NOTE | 2016-10-29 09:29 | PM & R (SOAP) Progress Note ---
Subjective Time Seen by Provider: 07:30 Subjective/Events-last exam Patient was seen in his room this AM Concerned re the weaknessin his rt arm He feels that the baclofen has helped with the spasms somewhat.He wishes to be reevaluated by DR Atkinson Patient max assist for transsfers Review of Systems Musculoskeletal: arm pain Neurological: Weakness Objective Exam Last Set of Vital Signs Vital Signs Date Time Temp Pulse Resp B/P (MAP) Pulse Ox O2 Delivery O2 Flow Rate FiO2 10/29/16 08:07 97.9 78 18 165/87 96 Room Air Capillary Refill : Less Than 3 Seconds I&O Intake and Output 10/29/16 00:00 Intake Total 980 ml Output Total 1330 ml Balance -350 ml Intake Oral 980 ml Output Urine Total 630 ml Urine/Stool Mix 700 ml # Voids 6 # Bowel Movements 1 General: Alert, Oriented X3, Cooperative, No Acute Distress HEENT: Atraumatic, PERRLA, EOMI, Mucous Memb Moist/[place] Neck: Other (Rigid C collar in place [place] dressing dry and intact) Lungs: Clear to Auscultation Heart: Regular Rate Abdomen: Normal Bowel Sounds, Soft, No Tenderness Extremities: No Edema Skin: Other (incusion coverered/Rt heel diabetic ulcer heeled as per DR Finch) Neuro: Other (Incresed weaknees in rt arm postop) Results Lab Laboratory Tests 10/26/16 11:44: Glucometer 190H 10/26/16 16:05: Glucometer 74 10/26/16 20:42: Glucometer 147H 10/27/16 06:50: Glucometer 133H 10/27/16 10:58: Glucometer 159H 10/27/16 16:19: Glucometer 123H 10/27/16 22:50: Glucometer 127H 10/28/16 05:39: Glucometer 119H 10/28/16 11:05: Glucometer 132H 10/28/16 15:26: Glucometer 91 10/28/16 21:30: Glucometer 147H 10/29/16 06:30: Glucometer 121H Assessment/Plan Assessment S/P decompression Cervical Spine stenosis with myelopathy with increased weakness rt arm and signs/ symptoms of myelopathy (Spasms/cramps) DM meds adjusted Rt heel diabetic ulcer healed AMY on cpap HTN controlled Painful left knee-OA Plan Continue PT/OT as tolerated Pain management F/u with Dr Duvall and Stef Adjust diabetic meds as needed Rigid C collar on at all times except when eating as OKD by DR Puente Rechmatias Xray left knee-Has seen DR Pepe Vicente in [place] prior to this-done OA left knee F/U with DR Atkinson re CT C Spine results Team Conference held yesterday-see report for full functional update and POC and ELOS Trial of baclofen for spasms-done appears to be helping Reconsult DR Atkinson See orders JOSEY SALINAS MD Oct 29, 2016 09:29
--- NOTE | 2016-10-29 11:00 | Occupational Ther Daily Note ---
OT Current Status-Daily Note Subjective Pt alert, lying in bed. Nrsg present in room. Pt has breakfast in front of him. Pt agreed to therapy. Pt verbalized that he is very frustrated that he has not seen his surgeon. Frustrated about his decline of UE AROM and strength. Mental Status/Objective Patient Orientation: Person, Place, Time, Situation Functional [place] Measure 0=Not Assessed/NA 4=Minimal Assistance 1=Total Assistance 5=Supervision or Setup 2=Maximal Assistance 6=Modified [place] 3=Moderate Assistance 7=Complete [place] Attachments: Other-See Comments (neck brace) ADL-Treatment Pt required help to finish eating breakfast. Pt2 person to go from supine to sitting EOB then 1 person assist to sit EOB. Sit to stand lift used for transfer to [facility]. Pt requires assist to manipulate clothing and to cleanse self. Sit to stand lift to transfer from BSC to motorized w/c. Mod A to don shirt, assist to thread L UE into shirt then is able to thread R UE through shirt then assist over head. Pt maneuvered motorized w/c into bathroom to sit in front of sink. After set up, pt was able to use built up handle for razor to shave cheeks and under nose and lips then required assist to shave neck area. After set up, pt was able to brush teeth with electric toothbrush with built up handle. After therapy, pt sitting in recliner with call light/phone in reach. All needs met in room. Functional [place] Measure 0=Not Assessed/NA 4=Minimal Assistance 1=Total Assistance 5=Supervision or Setup 2=Maximal Assistance 6=Modified [place] 3=Moderate Assistance 7=Complete IndependenceIRFPAI Quality Coding Scale 6 Independent with activity with or without an assistive device 5 Patient requires set up or clean up by helper. Patient completes activity by themselves 4 Supervision or touching assist (CGA). [place] provide cues , steadying assist 3 The helper provides less than half the effort to complete the activity 2 The helper provides more than half the effort to complete the activity 1 Dependent. The helper does all the effort to complete an activity 7 Patient refused to complete or attempt activity 9 The patient did not perform the activity before the current illness or injury 88 Not attempted due to Medical conditions or safety concerns Eating (FIM): 2 (Pt stated that he needed larger built up handles to hold utensils so he couldn't finish his breakfast by himself.) Grooming (FIM): 3 Oral Hygiene (QC): 3 Upper Body (FIM): 3 Lower Body Dressing (FIM): 2 On/Off Footwear (QC): 2 Toileting (FIM): 2 OT Short Term Goals Short Term Goals Time Frame: Nov 03, 2016 Eating(FIM): 5 Grooming(FIM): 5 Upper Body Dressing(FIM): 4 Toileting(FIM): 2 Toilet/Commode Transfer(FIM): 3 Additional Short Term Goals: 1-Demonstrate ADL Tasks, 2-Verbalize Understanding , 3-ImproveStrength/Fady 1=Demonstrate adherence to instructed precautions during ADL tasks. 2=Patient will verbalize/demonstrate understanding of assistive devices/ modifications for ADL. 3=Patient will improve strength/tolerance for activity to enable patient to perform ADL's. OT Prison Goals Lmsw Goals Time Frame: Nov 17, 2016 Eating (FIM): 6 Eating (QC): 6 Groomin Oral Hygiene (QC): 6 Bathing(FIM): 5 (SBA, supervision) Shower/Bathe Self (QC): 4 Upper Body Dressing(FIM): 5 Upper Body Dressing (QC): 5 Lower Body Dressing(FIM): 5 Lower Body Dressing (QC): 4 On/Off Footwear (QC): 4 Toileting(FIM): 5 Toileting Hygiene (QC): 4 Toilet/Commode Transfer(FIM): 5 Toilet/Commode Transfer (QC): 4 Shower Transfer(FIM): 5 Additional Goals: 1-Demonstrate ADL Tasks, 2-Verbalize Understanding, 3- ImproveStrength/Fady 1=Demonstrate adherence to instructed precautions during ADL tasks. 2=Patient will verbalize/demonstrate understanding of assistive devices/ modifications for ADL. 3=Patient will improve strength/tolerance for activity to enable patient to perform ADL's. OT Education/Plan Problem List/Assessment Pt would benefit from skilled OT to increase her independence in basic self care to allow him to safely return to his home and decrease caregiver burden Discharge Recommendations Plan/Recommendations: Continue POC Treatment Plan/Plan of Care Patient would benefit from OT for education, treatment and training to promote independence in ADL's, mobility, safety and/or upper extremity function for ADL' s. Plan of Care: ADL Retraining, Functional Mobility, Group Exercise/Act as Ind ( education, exercise, activity tolerance, functional activities, coordination), UE Funct Exercise/Act, UE Neuromus Re-Ed/Coord, W/C Management Training Treatment Duration: Nov 17, 2016 Visits Per Week: 10-11 Minutes/Day (M-F): 75-90 Minutes/Day (Sat/Cotter): PRN Agreement: Yes Rehab Potential: Fair Time/GCodes Start Time: 09:00 Stop Time: 10:30 Total Time Billed (hr/min): 90 Billed Treatment Time 1 visit-ADL 6 (90 min) PREMA MEJIAS Oct 29, 2016 11:00
[2016-10-29] MEDS: POLYETHYLENE GLYCOL 17 GM (MIRALAX) PACK PO SCH ×2 (11:12→20:00)
[2016-10-29] MEDS: LACTULOSE SYRUP 10GM/15ML (ENULOSE) 30ML UDC PO SCH ×2 (11:12→20:00)
--- NOTE | 2016-10-29 12:02 | Physical Therapy Daily Note ---
PT Daily Note-Current Subjective Patient in power chair pre tx, agrees to PT, has pain of 7/10 in neck and left hip. Appearance Patient in bed post tx with nurse call, ronel, all needs met. Mental Status Patient Orientation: Normal For Age cervical collar Transfers Functional [place] Measure 0=Not Assessed/NA 4=Minimal Assistance 1=Total Assistance 5=Supervision or Setup 2=Maximal Assistance 6=Modified [place] 3=Moderate Assistance 7=Complete IndependenceIRFPAI Quality Coding Scale 6 Independent with activity with or without an assistive device 5 Patient requires set up or clean up by helper. Patient completes activity by themselves 4 Supervision or touching assist (CGA). [place] provide cues , steadying assist 3 The helper provides less than half the effort to complete the activity 2 The helper provides more than half the effort to complete the activity 1 Dependent. The helper does all the effort to complete an activity 7 Patient refused to complete or attempt activity 9 The patient did not perform the activity before the current illness or injury 88 Not attempted due to Medical conditions or safety concerns Transfers (B, C, W/C) (FIM): 2 Scootin Rollin Supine to/from Sit: 2 Sit to/from Stand: 2 Bed to/from Chair: 2 Exercises Seated Therapy Exercises: Ankle pumps, Hip flexion Seated Reps: 20 Patient stood in the parallel bars x4 with max assist and assist to keep his arms on the bars for about 1 min each time. He also performed seated hip abd with red theraband x20 and hip add with pillow x20. LAQ alternating for 5 min. Treatments functional strengthening, bed mobility and transfers, standing in parallel bars Assessment Current Status: Poor Progress Patient has not improved with mobility, spasms in legs are worse, audible popping in neck PT Short Term Goals Short Term Goals Time Frame: Oct 27, 2016 Gait (FIM): 1 Gait Distance Comment: 8' Gait Level of Assist: 3 Wheelchair (FIM): 6 Wheelchair Distance: 500' PT Alf Goals Home Health Care Physician Goals PT Home Health Care Physician Goals Time Frame: Nov 10, 2016 Transfers (B,C,W/C) (FIM): 4 Sit to Lying (QC): 3 Lying-Sitting on Side/Bed(QC): 3 Sit to Stand (QC): 3 Rollin Roll Left to Right (QC): 3 Chair/Rlv-rp-Efkma Xfer(QC): 3 Car Transfer (QC): 3 Gait (FIM): 1 Distance: 20' Walk 10 feet (QC): 3 Walk 10ft-Uneven Surface(QC): 88 Walk 50ft with 2 Turns (QC): 88 Walk 150 ft (QC): 88 Gait Level of Assist: 4 Gait Assistive Device: FWW Wheelchair (FIM): 6 Distance: 500' Wheel 50 feet with 2 turns (QC: 6 PT Plan Problem List Problem List: Activity Tolerance, Functional Strength, Safety, Balance, Gait, Transfer, Bed Mobility, ROM Treatment/Plan Treatment Plan: Continue Plan of Care Treatment Plan: Bed Mobility, Education, Functional Activity Fady, Functional Strength, Group Therapy, Gait, Safety, Therapeutic Exercise, Transfers Treatment Duration: Nov 10, 2016 Visits Per Week: 10-11 Minutes/Day (M-F): 60-90 Minutes/Day (Sat/Cotter): 15-30 Safety Risks/Education Patient Education: Transfer Techniques, Correct Positioning, Safety Issues Teaching Recipient: Patient Teaching Methods: Demonstration, Discussion Response to Teaching: Reinforcement Needed Time/GCodes Time In: 1100 Time Out: 1200 Total Billed Treatment Time: 60 Total Billed Treatment 1 visit EX 20' FA 40' CATALINA RUBI PT Oct 29, 2016 12:02
--- NOTE | 2016-10-29 15:06 | Physical Therapy Daily Note ---
PT Daily Note-Current Subjective Patient in bed pre tx, agrees to PT, has pain of 5/10. Will be having PROM of bilateral lower extremities and AAROM of right arm. Appearance Patient on bedside commode post tx with nurse aide. Transfers Functional [place] Measure 0=Not Assessed/NA 4=Minimal Assistance 1=Total Assistance 5=Supervision or Setup 2=Maximal Assistance 6=Modified [place] 3=Moderate Assistance 7=Complete IndependenceIRFPAI Quality Coding Scale 6 Independent with activity with or without an assistive device 5 Patient requires set up or clean up by helper. Patient completes activity by themselves 4 Supervision or touching assist (CGA). [place] provide cues , steadying assist 3 The helper provides less than half the effort to complete the activity 2 The helper provides more than half the effort to complete the activity 1 Dependent. The helper does all the effort to complete an activity 7 Patient refused to complete or attempt activity 9 The patient did not perform the activity before the current illness or injury 88 Not attempted due to Medical conditions or safety concerns Transfers (B, C, W/C) (FIM): 1 Scootin Rollin Supine to/from Sit: 2 Sit to/from Stand: 1 standing machine to bedside commode at the end of the treatment Exercises AAROM of right arm in all planes and PROM of bilateral lower extremities Treatments ROM, transfer to commode Assessment Current Status: Poor Progress no change in mobility PT Short Term Goals Short Term Goals Time Frame: Oct 27, 2016 Gait (FIM): 1 Gait Distance Comment: 8' Gait Level of Assist: 3 Wheelchair (FIM): 6 Wheelchair Distance: 500' PT [facility] Goals [facility] Goals PT [employer] Developer Goals Time Frame: Nov 10, 2016 Transfers (B,C,W/C) (FIM): 4 Sit to Lying (QC): 3 Lying-Sitting on Side/Bed(QC): 3 Sit to Stand (QC): 3 Rollin Roll Left to Right (QC): 3 Chair/Kow-kh-Aoexp Xfer(QC): 3 Car Transfer (QC): 3 Gait (FIM): 1 Distance: 20' Walk 10 feet (QC): 3 Walk 10ft-Uneven Surface(QC): 88 Walk 50ft with 2 Turns (QC): 88 Walk 150 ft (QC): 88 Gait Level of Assist: 4 Gait Assistive Device: FWW Wheelchair (FIM): 6 Distance: 500' Wheel 50 feet with 2 turns (QC: 6 PT Plan Problem List Problem List: Activity Tolerance, Functional Strength, Safety, Balance, Gait, Transfer, Bed Mobility, ROM Treatment/Plan Treatment Plan: Continue Plan of Care Treatment Plan: Bed Mobility, Education, Functional Activity Fady, Functional Strength, Group Therapy, Gait, Safety, Therapeutic Exercise, Transfers Treatment Duration: Nov 10, 2016 Visits Per Week: 10-11 Minutes/Day (M-F): 60-90 Minutes/Day (Sat/Cotter): 15-30 Safety Risks/Education Patient Education: Transfer Techniques, Correct Positioning, Disease Process Teaching Recipient: Patient Teaching Methods: Demonstration, Discussion Response to Teaching: Reinforcement Needed Time/GCodes Time In: 1430 Time Out: 1500 Total Billed Treatment Time: 30 Total Billed Treatment 1 visit EX 20' FA 10' CATALINA RUBI PT Oct 29, 2016 15:06
--- NOTE | 2016-10-29 16:24 | Progress Note-Standard ---
Standard Progress Note Progress Notes/Assess & Plan Time Seen by Provider: 16:20 Progress/Assessment & Plan Had improvement in motor strength and has clearly gotten weaker again. Discussed with PT and they note weakness progressing as well. Patient reports improvement in numbness, but regression in motor strength. PE: alert, oriented Collar in place Incision good Phonation good. Upper Extremity, shows 3-4/5 global strength on right, 4/5 on left scattered sensory changes increased spasticity in lowers CT shows satisfactory central decompression. Imp: Cervical Myelopathy/myelomalacia Cervical Stenosis/spondylosis Cervical OPLL Plan; get new MRI scan and possibly a CT Myelo. Discussed with Dr Cheema. LEIA SANZ MD Oct 29, 2016 16:24
--- NOTE | 2016-10-29 17:36 | Diagnostic Imaging Report ---
PROCEDURE: MR imaging cervical spine without contrast. TECHNIQUE: Multiplanar, multisequence MR imaging of the cervical spine was performed without contrast. INDICATION: Increased cervical spine weakness. Two weeks postop from multilevel discectomies and interbody fusion. COMPARISON: CT cervical spine from 10/26/2016. FINDINGS: Again seen are changes from anterior cervical discectomy and fusion at C3-C4 and C4-C5. There has been a C6 corpectomy with probable fibular strut bone graft placement. A long plate extends along the anterior aspect from C3 through C7 with paired bilateral screws at all levels except C6. CT from 10/26/2016 better evaluates the hardware as there is susceptibility artifact surrounding the hardware on this examination. No spondylolisthesis. There is T2 hyperintense fluid and/or granulation tissue within the corpectomy site along the posterior aspect of the bone graft strut. No acute fracture. There is mild intramedullary T2 hyperintense signal within the spinal cord posterior to the C3-C4 level, which could represent residual myelomalacia from prior high-grade stenosis at this region. There is also a small amount of intramedullary cord hyperintense signal posterior to the C6 corpectomy site which also likely represents a small focus of residual myelomalacia. Allowing for artifact from the anterior plate and screw hardware. There does not appear to be any residual significant spinal stenosis in the cervical spine. However, there is at least mild spinal stenosis at T2-T3 secondary to bilobed disc herniation completely effacing the ventral thecal sac and having mild mass effect on the cord. There is no abnormal associated cord signal at this level to indicate cord edema or myelomalacia. There is multilevel neuroforaminal narrowing, of which degrading is better assessed by recent CT secondary to the artifact. IMPRESSION: 1. Status post multilevel discectomies with anterior fusion from C3-C7. At C6, there has been corpectomy with probable fibular bone graft strut placement. Allowing for metallic artifact from the hardware, cervical spine is normal in alignment. 2. There does not appear to be significant residual spinal stenosis in the cervical spine. 3. There are small foci of intramedullary T2 hyperintense cord signal, one posterior to C3-C4 and the other posterior to the C6 corpectomy level. These may represent foci of residual myelomalacia from prior high-grade stenosis at these levels. 4. At T2-T3, there is a bilobed disc herniation which completely effaces ventral thecal sac and contacts the anterior cord. No associated cord edema or myelomalacia at this level. Dictated by: Dictated on workstation # [id number]
[2016-10-29 18:15] VITALS: BP 152/87
--- NOTE | 2016-10-29 18:20 | Progress Note-Standard ---
Standard Progress Note Progress Notes/Assess & Plan Time Seen by Provider: 18:18 Progress/Assessment & Plan Cervical MRI reviewed Some residual stenosis, significant myelomalacia foraminal stenosis is present. Will discuss with patient, but the 2nd stage of posterior surgery maybe necessary. LEIA SANZ MD Oct 29, 2016 18:20
[2016-10-30] MEDS: HYDROcodone/APAP 10 MG/325 MG (LORTAB) TAB PO PRN ×3 (00:01→08:23)
[2016-10-30 05:02] VITALS: BP 149/91
[2016-10-30] MEDS: MULTIVIT W/MINERALS TAB (THERAGRAN M) PO SCH (07:07)
[2016-10-30] MEDS: metFORMIN 500 MG (GLUCOPHAGE) TAB PO SCH (07:07)
[2016-10-30] MEDS: BACLOFEN 10 MG (LIORESAL) TAB PO SCH ×2 (07:07→14:06)
[2016-10-30] MEDS: inSUlin (REGULAR) HUMAN 1 UNIT/0.01 ML (CHARGE PER UNIT) SC SCH ×3 (07:44→15:45)
--- NOTE | 2016-10-30 08:07 | PM & R (SOAP) Progress Note ---
Subjective Time Seen by Provider: 07:45 Subjective/Events-last exam Patient was seen in his room this AM Appreciate Mri report and DR Campbell notes and orders Patient reports spasms decreased with baclofen.Patient Max assist for transfers Objective Exam Last Set of Vital Signs Vital Signs Date Time Temp Pulse Resp B/P (MAP) Pulse Ox O2 Delivery O2 Flow Rate FiO2 10/30/16 05:02 97.4 82 18 149/91 97 Room Air Capillary Refill : Less Than 3 Seconds I&O Intake and Output 10/30/16 00:00 Intake Total 1060 ml Output Total 1525 ml Balance -465 ml Intake Oral 1060 ml Output Urine Total 1525 ml # Voids 1 # Bowel Movements 1 General: Alert, Oriented X3, Cooperative, No Acute Distress HEENT: Atraumatic, PERRLA, EOMI, Mucous Memb Moist/[place] Neck: Other (Rigid C collar in place [place] dressing dry and intact) Lungs: Clear to Auscultation Heart: Regular Rate Abdomen: Normal Bowel Sounds, Soft, No Tenderness Extremities: No Edema Skin: Other (incusion coverered/Rt heel diabetic ulcer heeled as per DR Finch) Neuro: Other (Incresed weaknees in rt arm postop) Results Lab Laboratory Tests 10/27/16 10:58: Glucometer 159H 10/27/16 16:19: Glucometer 123H 10/27/16 22:50: Glucometer 127H 10/28/16 05:39: Glucometer 119H 10/28/16 11:05: Glucometer 132H 10/28/16 15:26: Glucometer 91 10/28/16 21:30: Glucometer 147H 10/29/16 06:30: Glucometer 121H 10/29/16 11:03: Glucometer 121H 10/29/16 18:13: Glucometer 96 10/29/16 22:07: Glucometer 229H 10/30/16 04:57: Glucometer 88 10/30/16 07:20: Glucometer 108 Assessment/Plan Assessment S/P decompression Cervical Spine stenosis with myelopathy with increased weakness rt arm and signs/ symptoms of myelopathy (Spasms/cramps) with CT C spine and Mri findings as per reports DM meds adjusted Rt heel diabetic ulcer healed AMY on cpap HTN controlled Painful left knee-OA Plan Continue PT/OT as tolerated Pain management F/u with Dr Duvall and Stef Adjust diabetic meds as needed Rigid C collar on at all times except when eating as OKD by DR Puente Recheck Xray left knee-Has seen DR Pepe Vicente in [place] prior to this-done OA left knee F/U with DR Atkinson re CT C Spine results Team Conference held 11/27/16-see report for full functional update and POC and ELOS Trial of baclofen for spasms-done appears to be helping Reconsult DR Atkinson-done See orders JOSEY SALINAS MD Oct 30, 2016 08:07
[2016-10-30] MEDS: SENNA W/DOCUSATE (SENOKOT S) TABLET PO SCH (08:23)
[2016-10-30] MEDS: VERAPAMIL 80 MG (ISOPTIN) TAB PO SCH (08:23)
[2016-10-30] MEDS: HYDROCHLOROTHIAZIDE 25 MG (HCTZ) TAB PO SCH (08:23)
--- NOTE | 2016-10-30 09:57 | Occupational Ther Daily Note ---
OT Current Status-Daily Note Subjective Pt alert, finishing up breakfast. Pt agreed to therapy. Nrsg administered pain meds to pt, 11/09. Pt to have surgery tomorrow morning. Mental Status/Objective Patient Orientation: Person, Place, Time, Situation Functional [place] Measure 0=Not Assessed/NA 4=Minimal Assistance 1=Total Assistance 5=Supervision or Setup 2=Maximal Assistance 6=Modified [place] 3=Moderate Assistance 7=Complete [place] Attachments: Other-See Comments (neck brace) ADL-Treatment Pt required 2 person assist to go from supine to sitting. 2 person assist with sit to stand to transfer from bed to BSC. Assist with manipulating clothing and toilet hygiene. Then transferred to wheeled shower chair for shower. Pt was able to bathe chest and shldrs, assist to cleanse all other areas. Assist to comb hair. Mod A to don/doff shirt. Max A to don/doff lower body clothing. Pt took increased time to complete transfers with sit to stand and toileting hygiene. Co-treatment with PT from [id number]. PT worked on sit to stand transfers with lift for weight bearing through LE's. Optimal positioning in w/c for independence in w/c mobility. OT worked on UE wellness health coach strength to assist with transfers and functional daily tasks, ADL and clothing manipulation. After therapy, pt left in care of PT. All needs met. Functional [place] Measure 0=Not Assessed/NA 4=Minimal Assistance 1=Total Assistance 5=Supervision or Setup 2=Maximal Assistance 6=Modified [place] 3=Moderate Assistance 7=Complete IndependenceIRFPAI Quality Coding Scale 6 Independent with activity with or without an assistive device 5 Patient requires set up or clean up by helper. Patient completes activity by themselves 4 Supervision or touching assist (CGA). [place] provide cues , steadying assist 3 The helper provides less than half the effort to complete the activity 2 The helper provides more than half the effort to complete the activity 1 Dependent. The helper does all the effort to complete an activity 7 Patient refused to complete or attempt activity 9 The patient did not perform the activity before the current illness or injury 88 Not attempted due to Medical conditions or safety concerns Eating (FIM): 3 (Modified built up handles for pt to increase diameter of handle for wellness health coach. Pt was able to use to eat oatmeal today.) Bathing (FIM): 2 Bathing Location: Chest Upper Body (FIM): 3 Lower Body Dressing (FIM): 2 On/Off Footwear (QC): 2 Toileting (FIM): 2 Toilet/Commode Transfer (FIM): 2 Shower Transfer(FIM): 2 OT Short Term Goals Short Term Goals Time Frame: Nov 03, 2016 Eating(FIM): 5 Grooming(FIM): 5 Upper Body Dressing(FIM): 4 Toileting(FIM): 2 Toilet/Commode Transfer(FIM): 3 Additional Short Term Goals: 1-Demonstrate ADL Tasks, 2-Verbalize Understanding , 3-ImproveStrength/Fady 1=Demonstrate adherence to instructed precautions during ADL tasks. 2=Patient will verbalize/demonstrate understanding of assistive devices/ modifications for ADL. 3=Patient will improve strength/tolerance for activity to enable patient to perform ADL's. OT Prison Goals Storage Facility Rental Clerk Goals Time Frame: Nov 17, 2016 Eating (FIM): 6 Eating (QC): 6 Groomin Oral Hygiene (QC): 6 Bathing(FIM): 5 (SBA, supervision) Shower/Bathe Self (QC): 4 Upper Body Dressing(FIM): 5 Upper Body Dressing (QC): 5 Lower Body Dressing(FIM): 5 Lower Body Dressing (QC): 4 On/Off Footwear (QC): 4 Toileting(FIM): 5 Toileting Hygiene (QC): 4 Toilet/Commode Transfer(FIM): 5 Toilet/Commode Transfer (QC): 4 Shower Transfer(FIM): 5 Additional Goals: 1-Demonstrate ADL Tasks, 2-Verbalize Understanding, 3- ImproveStrength/Fady 1=Demonstrate adherence to instructed precautions during ADL tasks. 2=Patient will verbalize/demonstrate understanding of assistive devices/ modifications for ADL. 3=Patient will improve strength/tolerance for activity to enable patient to perform ADL's. OT Education/Plan Problem List/Assessment Pt would benefit from skilled OT to increase her independence in basic self care to allow him to safely return to his home and decrease caregiver burden Discharge Recommendations Plan/Recommendations: Continue POC Treatment Plan/Plan of Care Patient would benefit from OT for education, treatment and training to promote independence in ADL's, mobility, safety and/or upper extremity function for ADL' s. Plan of Care: ADL Retraining, Functional Mobility, Group Exercise/Act as Ind ( education, exercise, activity tolerance, functional activities, coordination), UE Funct Exercise/Act, UE Neuromus Re-Ed/Coord, W/C Management Training Treatment Duration: Nov 17, 2016 Visits Per Week: 10-11 Minutes/Day (M-F): 75-90 Minutes/Day (Sat/Cotter): PRN Agreement: Yes Rehab Potential: Fair Time/GCodes Start Time: 08:00 Stop Time: 09:30 Total Time Billed (hr/min): 90 Billed Treatment Time 1 visit-ADL 4 (60 min) FA 2 (30 min) individual tx:[id number]; co-tx with PT [id number] PREMA MEJIAS Oct 30, 2016 09:57
[2016-10-30] MEDS: POLYETHYLENE GLYCOL 17 GM (MIRALAX) PACK PO SCH (10:00)
[2016-10-30] MEDS: LACTULOSE SYRUP 10GM/15ML (ENULOSE) 30ML UDC PO SCH (10:00)
--- NOTE | 2016-10-30 10:03 | Physical Therapy Daily Note ---
PT Daily Note-Current Subjective Patient in shower chair pre tx, working with OT, will be co-treating with OT for dressing and toileting. Patient has pain of 7/10 in neck and left hip. Appearance Patient on commode again post tx, has nurse call push button. Mental Status Patient Orientation: Normal For Age cervical collar Transfers Functional Brooke Measure 0=Not Assessed/NA 4=Minimal Assistance 1=Total Assistance 5=Supervision or Setup 2=Maximal Assistance 6=Modified Brooke 3=Moderate Assistance 7=Complete IndependenceIRFPAI Quality Coding Scale 6 Independent with activity with or without an assistive device 5 Patient requires set up or clean up by helper. Patient completes activity by themselves 4 Supervision or touching assist (CGA). Harold provide cues , steadying assist 3 The helper provides less than half the effort to complete the activity 2 The helper provides more than half the effort to complete the activity 1 Dependent. The helper does all the effort to complete an activity 7 Patient refused to complete or attempt activity 9 The patient did not perform the activity before the current illness or injury 88 Not attempted due to Medical conditions or safety concerns Transfers (B, C, W/C) (FIM): 1 Sit to/from Stand: 1 patient used standing machine today to stand and get pants on, transfer to and from commode (which he did twice) Wheelchair Training Does the Pt Use a Wheelchair?: Yes Wheelchair (FIM): 6 Distance: 5000' Type of Wheelchair: Motorized Patient drove his power wheelchair outside over community surfaces, over ramps and uneven surfaces, no safety issues Treatments transfers, wheelchair mobility, toileting Assessment Current Status: Poor Progress no change in mobility, patient is supposed to have another surgery on his neck in the morning PT Short Term Goals Short Term Goals Time Frame: Oct 27, 2016 Gait (FIM): 1 Gait Distance Comment: 8' Gait Level of Assist: 3 Wheelchair (FIM): 6 Wheelchair Distance: 500' PT Mcc Goals Track Patrol Goals PT Track Patrol Goals Time Frame: Nov 10, 2016 Transfers (B,C,W/C) (FIM): 4 Sit to Lying (QC): 3 Lying-Sitting on Side/Bed(QC): 3 Sit to Stand (QC): 3 Rollin Roll Left to Right (QC): 3 Chair/Kbs-nz-Zqkhz Xfer(QC): 3 Car Transfer (QC): 3 Gait (FIM): 1 Distance: 20' Walk 10 feet (QC): 3 Walk 10ft-Uneven Surface(QC): 88 Walk 50ft with 2 Turns (QC): 88 Walk 150 ft (QC): 88 Gait Level of Assist: 4 Gait Assistive Device: FWW Wheelchair (FIM): 6 Distance: 500' Wheel 50 feet with 2 turns (QC: 6 PT Plan Problem List Problem List: Activity Tolerance, Functional Strength, Safety, Balance, Gait, Transfer, Bed Mobility, ROM Treatment/Plan Treatment Plan: Continue Plan of Care Treatment Plan: Bed Mobility, Education, Functional Activity Fady, Functional Strength, Group Therapy, Gait, Safety, Therapeutic Exercise, Transfers Treatment Duration: Nov 10, 2016 Visits Per Week: 10-11 Minutes/Day (M-F): 60-90 Minutes/Day (Sat/Cotter): 15-30 Safety Risks/Education Patient Education: Transfer Techniques, Correct Positioning, W/C Management, Safety Issues Teaching Recipient: Patient Teaching Methods: Demonstration, Discussion Response to Teaching: Reinforcement Needed Time/GCodes Time In: 900 Time Out: 1000 Total Billed Treatment Time: 60 Total Billed Treatment 1 visit FA 30' WCH 30' Co-treated with OT for 30 min. OT performed dressing and UE assist while PT performed transfers and stabilization during dressing. CATALINA RUBI PT Oct 30, 2016 10:03
--- NOTE | 2016-10-30 11:07 | Progress Note-Hospitalist ---
Progress Note HPI/CC on Admission CC: Medical management following cervical spine surgery HPI: This is a 61-year-old white male that had an uncomplicated cervical spine surgery by Dr. Atkinson on 10/13/16 because of spinal cord compression causing upper and lower extremity weakness with severe radiculopathy and neuropathy and inability to walk. He was seen in the emergency room via [facility] and sent over to Dr. Atkinson's office who evaluated the patient to be in a surgical urgency and underwent cervical spine decompression surgery with hardware placement in an uncomplicated manner on 10/15/16. 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 He has a history of AMY compliant with CPAP, hypertension, osteoarthritis and diabetes mellitus insulin- dependent. He had an uncomplicated course at [facility] and [place], [place] of which I saw him most days of admission following along for medical management. He did have severe fecal impaction with severe constipation due to the spinal cord compression situation in addition to narcotic bowel that was resolved after soapsuds enema given at [facility] yesterday. BM regimen will be initiated. Progress Notes/Assess & Plan Date Seen 10/30/16 Time Seen by Provider: 10:00 Admission Dx/Process Patient doing well overall Weakness remains and will have surgery tomorrow Bowels are moving No fever vital signs stable, pleasant, improved Regular rate and rhythm, clear to auscultation bilaterally No edema Assessment: Debility following cervical spine surgery due to spinal cord compression causing radiculopathy and neuropathy and inability to walk with arm and leg weakness now going to surgery tomorrow repeat Diabetic ulcer right foot Diabetes mellitus insulin-dependent Hypertension AMY compliant with sleep apnea treatment Osteoarthritis rehabilitation to continue surgery tomorrow Diagonsis/Assessment & Plan see above KEANU LI DO Oct 30, 2016 11:07
[2016-10-30] MEDS ORDERED: LACTATED RINGERS 1,000 ML IV SCH (12:15)
[2016-10-30 12:48] LABS: MEAN PLATELET VOLUME 8.5 FL (7.4-10.4); RED BLOOD COUNT 4.46 10^6/uL (4.35-5.85); RED CELL DISTRIBUTION WIDTH 15.3 % (10.0-14.5); WHITE BLOOD COUNT 9.5 10^3/uL (4.3-11.0)
[2016-10-30] MEDS: morphine INJ 4 MG/ML 1 ML (VIAL/SYRINGE) IVP PRN ×2 (12:52→14:54)
[2016-10-30 13:05] LABS: ANION GAP 9 MMOL/L (5-14); BLOOD UREA NITROGEN 14 MG/DL (7-18); BUN/CREATININE RATIO 18; CALCIUM 9.6 MG/DL (8.5-10.1); CARBON DIOXIDE 30 MMOL/L (21-32); CHLORIDE 103 MMOL/L (98-107); CREATININE SERUM 0.77 MG/DL (0.60-1.30); GFR ESTIMATED > 60; GLUCOSE 113 MG/DL (70-105); POTASSIUM 3.2 MMOL/L (3.6-5.0); SODIUM 142 MMOL/L (135-145)
[2016-10-30 14:37] VITALS: BP 151/90
--- NOTE | 2016-10-30 14:52 | Therapy Team Discharge Summary ---
Therapy Discharge Summary Discharge Recommendations Date of Discharge Therapy D/C Recommendations: Home w/ Family Support, Shelter (TCU/NH) Physical Therapy Patient came to rehab following C3 to C7 anterior cervical reconstruction. Upon evaluation patient performed bed mobility and a stand pivot transfer with max assist of 2 and drove a power chair 150' with SBA, no stairs or ambulation. Patient has been performing bed mobility and transfer training, endurance training, functional strengthening, standing, wheelchair mobility, balance training, gait training, and education. Patient has made poor progress and has met only his wheelchair goal. Now, patient performs bed mobility with max assist of 2, stand pivot transfers with max assist of 2, ambulates only in a weight supported gait system, and is mod I with power wheelchair mobility. Patient has gotten weaker during his stay especially in his right arm and has abnormal tone in his legs. Patient has to have another surgery on his neck today and will be discharged from PT at this time. PT Data Deliverables Manager Goals Mcfp Goals PT Data Deliverables Manager Goals Time Frame: Nov 10, 2016 Transfers (B,C,W/C) (FIM): 4 Roll Left to Right (QC): 3 Sit to Lying (QC): 3 Lying-Sitting on Side/Bed(QC): 3 Sit to Stand (QC): 3 Chair/Orq-mh-Swhsf Xfer(QC): 3 Car Transfer (QC): 3 Gait (FIM): 1 Distance: 20' Walk 10 feet (QC): 3 Walk 10ft-Uneven Surface(QC): 88 Walk 50ft with 2 Turns (QC): 88 Walk 150 ft (QC): 88 Gait Level of Assist: 4 Gait Assistive Device: FWW Wheelchair (FIM): 6 Distance: 500' Wheel 50 feet with 2 turns (QC: 6 OT Mcfp Goals Mcfp Goals Time Frame: Nov 17, 2016 Eating (FIM): 6 Eating (QC): 6 Oral Hygiene (QC): 6 Grooming(FIM): 6 Bathing(FIM): 5 (SBA, supervision) Shower/Bathe Self (QC): 4 Upper Body Dressing(FIM): 5 Upper Body Dressing (QC): 5 Lower Body Dressing(FIM): 5 Lower Body Dressing (QC): 4 On/Off Footwear (QC): 4 Toileting(FIM): 5 Toileting Hygiene (QC): 4 Toilet/Commode Transfer(FIM): 5 Toilet/Commode Transfer (QC): 4 Shower Transfer(FIM): 5 Additional Goals: 1-Demonstrate ADL Tasks, 2-Verbalize Understanding, 3- ImproveStrength/Fady 1=Demonstrate adherence to instructed precautions during ADL tasks. 2=Patient will verbalize/demonstrate understanding of assistive devices/ modifications for ADL. 3=Patient will improve strength/tolerance for activity to enable patient to perform ADL's. CATALINA RUBI PT Oct 30, 2016 14:52
[2016-10-30] MEDS ORDERED: GENTAMICIN 40 MG/ML 2 ML INJ SDV ONE (15:51)
[2016-10-30] MEDS ORDERED: VANCOMYCIN 1000 MG/VIAL ONE (15:52)
[2016-10-30 16:13] VITALS: BP 151/90
[2016-10-30] MEDS ORDERED: LACTATED RINGERS 1,000 ML IV ONE ×3 (16:26→20:45)
[2016-10-30] MEDS ORDERED: SUCCINYLCHOLINE INJ 100 MG/5 ML SYR ONE (16:26)
[2016-10-30] MEDS ORDERED: fentaNYL INJECTION 100 MCG/2 ML AMP ONE (16:26)
[2016-10-30] MEDS ORDERED: ROCURONIUM 50 MG/5 ML (ZEMURON) VIAL IV ONE (16:26)
[2016-10-30] MEDS ORDERED: LIDOCAINE PF 2% 5 ML (XYLOCAINE) VIAL ONE (16:26)
[2016-10-30] MEDS ORDERED: ONDANSETRON 4 MG/2 ML (SDV) Z0FRAN ONE (16:26)
[2016-10-30] MEDS ORDERED: MIDAZOLAM 2 MG/2 ML (VERSED) VIAL ONE (16:26)
[2016-10-30] MEDS ORDERED: proPOfol 200 MG/20 ML (DIPRIVAN) VIAL IV ONE (16:26)
[2016-10-30] MEDS ORDERED: DEXMEDETOMIDINE 200 MCG/2 ML (PRECEDEX) VIAL IV ONE ×2 (16:28→17:55)
--- NOTE | 2016-10-30 16:36 | Progress Note-Pre Operative ---
Pre-Operative Progress Note H&P Reviewed The H&P was reviewed, patient examined and no changes noted. Date Seen by Provider: Oct 30, 2016 Time Seen by Provider: 16:35 Date H&P Reviewed: Oct 30, 2016 Time H&P Reviewed: 16:36 Pre-Operative Diagnosis: Cervical Stenosis, Cervical Spondylosis with Myelopathy, LEIA SANZ MD Oct 30, 2016 4:36 pm
[2016-10-30] MEDS ORDERED: NS (IVPB) 100 ML ONE ×2 (17:55)
[2016-10-30] MEDS ORDERED: SEVOFLURANE (ULTANE) 15 ML INHAL SOLN ONE ×6 (17:56→20:35)
--- NOTE | 2016-10-30 20:33 | Progress Note-Post Operative ---
Post-Operative Progess Note Surgeon (s)/Slot Service Specialist (s) Surgeon LEIA SANZ MD Slot Service Specialist: Emmett Miller, PAP[facility] Pre-Operative Diagnosis Cervical Stenosis, Cervical Spondylosis with Myelopathy, Post-Operative Diagnosis Same Procedure & Operative Findings Date of Procedure 10/30/16 Procedure Performed/Findings C2-T3 PSF, C3-7 Lami Anesthesia Type GETA Estimated Blood Loss Estimated blood loss (mL): 850 Specimens/Packing Specimens Removed None LEIA SANZ MD Oct 30, 2016 8:33 pm
--- NOTE | 2016-10-31 09:23 | OPERATIVE REPORT ---
PROCEDURE PHYSICIAN: LEIA ATKINSON DATE OF PROCEDURE: 10/30/2016 PREOPERATIVE DIAGNOSIS: 1. Cervical spondylosis with myelopathy. 2. Cervical stenosis with cord compression and high grade myelomalacia. 3. Cervical radiculopathy. 4. Upper extremity weakness. POSTOPERATIVE DIAGNOSIS: 1. Cervical spondylosis with myelopathy. 2. Cervical stenosis with cord compression and high grade myelomalacia. 3. Cervical radiculopathy. 4. Upper extremity weakness. 5. Incidental durotomy PROCEDURE PERFORMED: 1. C2-C3 posterior spinal fusion. 2. C3-C4 posterior spinal fusion. 3. C4-C5 posterior spinal fusion. 4. C5-C6 posterior spinal fusion. 5. C6-C7 posterior spinal fusion. 6. C7-T1 posterior spinal fusion. 7. T1-T2 posterior spinal fusion. 8. T2-T3 posterior spinal fusion. 9. C2-T3 posterior segmental lateral mass and pedicle screw instrumentation. 10. C3-C4, C4-C5, C5-C6 and C6-C7 laminectomy bilateral medial facetectomy, and foraminotomies. 11. Autograph for spine surgery, local. 12. Allograft for spine surgery, morselized. 13. Repair of incidental durotomy date. DATE AND TIME OF SURGERY: Please per anesthesia record. SURGEON: Dr. Atkinson INDUSTRIAL WASTE TREATMENT TECHNICIAN: DONTE Kelley. ROLE OF SUPERVISOR FRAMING MILL: Aid in retraction of procedure, aid in implantation, instrumentation, wound closure. ANESTHESIA: General endotracheal. BLOOD LOSS: 850 mL. IV FLUIDS: Please see anesthesia record. ANTIBIOTICS: Ancef. COMPLICATIONS: Incidental durotomy during decompression, repaired without difficulty. IMPLANTS USED: Medtronic vertex select instrumentation and MagniFuse bone graft. INDICATION FOR THE PROCEDURE: Mr. Solano is a 61-year-old male, previous anterior decompression a few weeks ago for high-grade compression was getting better and then acutely got worse. Noted to have some persistent stenosis both centrally and foraminally. Pain and weakness was progressive and posterior decompression and stabilization was felt warranted. The risks, benefits and alternatives were discussed with the patient and family elected to proceed with operative intervention. This is stage 2 of a previously discussed 2 stage anterior/posterior cervical procedure. DESCRIPTION OF PROCEDURE: The patient was taken to the preoperative holding area and brought back to the operative suite. After adequate induction of general anesthetic, preoperative antibiotics were placed, spinal monitoring, standard intraoperative neural monitoring was carried out by means real-time continuous high quality bidirectional remote audio and visual communication to both the automotive refinish technician and surgeon by Dr. Vera. SSEPs, EMGs, TCMEPs and TOFs were carried out continuously throughout the procedure. The patient was taken from the preoperative holding area and brought back to the operative suite. After adequate induction of general anesthetic and preoperative antibiotics, was turned prone on the Huy table. Careful padding to all extremities, sterilely prepped and draped the posterior cervical and thoracic spine. An incision was made from C2-T3. Full exposure was carried out. Appropriate levels were confirmed with intraoperative imaging and then attention was directed to placement of bilateral C2 pars screws, lateral mass screws were drilled for some but not all of the segments between C3 and C6. C7 was skipped to allow for conversion to pedicle screws. In T1, T2 and T3, pedicle screws were placed bilaterally. At this point attention was directed to decompression, complete 3, 4, 5, 6 and partial C7 laminectomy and bilateral medial facetectomy, foraminotomies were performed. Full and active decompression was assured. During decompression on the left side, a small ____ (s/l dural ramp) was created, which was repaired with 5-0 Nurolon suture, DuraGen and Tisseel. Once decompression was assured, hemostasis assured, remaining screws were placed, rods were placed and contoured. Final tightening was performed. High speed bur was used to corticate the posterior lateral structure and combination autograft and allograft bone was packed posterior lateral gutter from C2-T3 for the fusion portion the procedure. Deep drain was placed. The wound was closed in layers. The patient transferred to the recovery room in stable condition having tolerated the procedure well. Job ID: [id number] Dictated Date: 10/30/2016 20:38:13 Staff Services Manager Date: 10/31/2016 08:38:47 / janae SANDOVAL
[2016-10-31] MEDS ORDERED: IRBE300T42 PO (21:40)
--- NOTE | 2016-11-02 11:32 | Therapy Team Discharge Summary ---
Therapy Discharge Summary Discharge Recommendations Date of Discharge Oct 30, 2016 at 16:13 Therapy D/C Recommendations: Other, See Comments (acute care) Occupational Therapy Pt was seen for skilled OT to increase his independence in basic self care to allow him to safely return to his home to live alone, after cervical surgery. On admission, her was able to feed himself with min assist and modified utensils. He required mo assist for grooming, upper body dressing and was dependant or needed two person help form bathing, lower body dressing, toileting. He was discharged to acute care for additional surgery due to decline in UE function. At discharge he needed mod assist to feed himself (at times max assist or dependant), dress upper body and max assist for lower body dressing, toilet transfer, shower transfer. He generally required the use of the sit to stand lift for most transfers and needed two people for toileting. Other equipment included Rudi cup, built up handles, power chair, BSC, shower chair. See tx plan for goals met. Pt transferred to acute care for second stage of cervical repair. DC OT PT Wine Steward/Stewardess Goals Prison Goals PT Wine Steward/Stewardess Goals Time Frame: Nov 10, 2016 Transfers (B,C,W/C) (FIM): 4 Roll Left to Right (QC): 3 Sit to Lying (QC): 3 Lying-Sitting on Side/Bed(QC): 3 Sit to Stand (QC): 3 Chair/Xbi-id-Parzl Xfer(QC): 3 Car Transfer (QC): 3 Gait (FIM): 1 Distance: 20' Walk 10 feet (QC): 3 Walk 10ft-Uneven Surface(QC): 88 Walk 50ft with 2 Turns (QC): 88 Walk 150 ft (QC): 88 Gait Level of Assist: 4 Gait Assistive Device: FWW Wheelchair (FIM): 6 Distance: 500' Wheel 50 feet with 2 turns (QC: 6 OT Prison Goals Wine Steward/Stewardess Goals Time Frame: Nov 17, 2016 Eating (FIM): 6 (not met 10-30-17) Eating (QC): 6 (not met 10-30-) Oral Hygiene (QC): 6 (not met 30-17) Grooming(FIM): 6 (not met 10-30-) Bathing(FIM): 5 (SBA, supervisionnot met 6-30-17) Shower/Bathe Self (QC): 4 (not met 30-17) Upper Body Dressing(FIM): 5 (not met 30-17) Upper Body Dressing (QC): 5 (not met -30-17) Lower Body Dressing(FIM): 5 (not met -30-17) Lower Body Dressing (QC): 4 (not met 30-) On/Off Footwear (QC): 4 (not met 10-30-) Toileting(FIM): 5 (not met 10-30-16) Toileting Hygiene (QC): 4 (not met 10-30-) Toilet/Commode Transfer(FIM): 5 (not met 10-30-) Toilet/Commode Transfer (QC): 4 (not met 30-) Shower Transfer(FIM): 5 (not met 30-) Additional Goals: 1-Demonstrate ADL Tasks, 2-Verbalize Understanding, 3- ImproveStrength/Fady 1=Demonstrate adherence to instructed precautions during ADL tasks. 2=Patient will verbalize/demonstrate understanding of assistive devices/ modifications for ADL. 3=Patient will improve strength/tolerance for activity to enable patient to perform ADL's. THAI HOOVER OT Nov 02, 2016 11:31
== END 2016-10-30 16:13 | disposition short-term general hospital (02) | DRG 950 ==
PROVIDERS: ADMIT Physical Medicine & Rehabilitation; ATTEND Physical Medicine & Rehabilitation
DX: Z48.89 Encounter for other specified surgical aftercare (principal); G57.93 Unspecified mononeuropathy of bilateral lower limbs; G56.93 Unspecified mononeuropathy of bilateral upper limbs; R53.1 Weakness; E11.649 Type 2 diabetes mellitus with hypoglycemia without coma; M17.12 Unilateral primary osteoarthritis, left knee; G47.33 Obstructive sleep apnea (adult) (pediatric); I10 Essential (primary) hypertension; F32.9 Major depressive disorder, single episode, unspecified; Z79.4 Long term (current) use of insulin
CPT/HCPCS: 36415; 72125; 72141; 73562; 80048; 80053; 82962; 85025; 85027; 86850; 86900; 86901

== ENCOUNTER 2016-10-30 17:47 | Inpatient (IN) | payer BC ==
[~2016-10-30] VITALS: Ht 180.3 cm; Wt 102.1 kg
[2016-10-30] MEDS: LACTATED RINGERS 1,000 ML IV PRN ×3 (16:20→18:27)
[~2016-10-30 17:47] MED LIST changes: +ACET-2267 PO; +CELE400C PO; +HYDR-753 PO; +HYDR25TA4 PO; +INSU100V31 SQ; +METF500T4 PO; +TRAM50TA2 PO; +VERA40TA2 PO
--- OUTSIDE RECORDS SUMMARY | 2016-10-30 17:53 | XMS REPORT | Continuity of Care Document ---
Author Author [facility] Organization [facility] Address Unknown Phone Unavailable Allergies Active Description Code Type Severity Reaction Onset Reported/Identified Relationship to Patient Clinical Status Yes No Known Drug Allergies [id number] Drug Allergy Unknown N/ A 03/18/2009 Medications [...] HEEL AND MIDF 08/04/2016 DELGADO ADOLFO R BELLY DANCER Ot E11.621 TYPE 2 DIABETES MELLITUS WITH FOOT ULCER 08/04/2016 DELGADO ADOLFO R BELLY DANCER Ot L97.412 NON-PRS CHR ULCER OF RIGHT HEEL AND MIDF 08/04/2016 DELGADO ADOLFO R BELLY DANCER Ot E11.621 TYPE 2 DIABETES MELLITUS WITH FOOT ULCER 08/04/2016 DELGADO DAOLFO R BELLY DANCER Ot L97.412 NON-PRS CHR ULCER OF RIGHT HEEL AND MIDF 08/05/2016 DELGADO ADOLFO R BELLY DANCER Ot E11.621 TYPE 2 DIABETES MELLITUS WITH FOOT ULCER 08/05/2016 DELGADO ADOLFO R BELLY DANCER Ot L97.412 NON-PRS CHR ULCER OF RIGHT HEEL AND MIDF 08/05/2016 ADOLFO NATARAJAN R BELLY DANCER Ot E11.621 TYPE 2 DIABETES MELLITUS WITH FOOT ULCER 08/05/2016 DELGADO ADOLFO R BELLY DANCER Ot L97.412 NON-PRS CHR ULCER OF RIGHT HEEL AND MIDF 08/12/2016 ADOLFO NATARAJAN R BELLY DANCER Ot E11.621 TYPE 2 DIABETES MELLITUS WITH FOOT ULCER 08/12/2016 DELGADO ADOLFO R BELLY DANCER Ot L97.412 NON-PRS CHR ULCER OF RIGHT HEEL AND MIDF 08/13/2016 DELGADO ADOLFO R BELLY DANCER Ot E11.621 TYPE 2 DIABETES MELLITUS WITH FOOT ULCER 08/13/2016 DELGADO ADOLFO R BELLY DANCER Ot L97.412 NON-PRS CHR ULCER OF RIGHT HEEL AND MIDF 08/13/2016 DELGADO ADOLFO R BELLY DANCER Ot E11.621 TYPE 2 DIABETES MELLITUS WITH FOOT ULCER 08/13/2016 DELGADO ADOLFO R BELLY DANCER Ot L97.412 NON-PRS CHR ULCER OF RIGHT HEEL AND MIDF 08/13/2016 DELGADO ADOLFO R BELLY DANCER Ot E11.621 TYPE 2 DIABETES MELLITUS WITH FOOT ULCER 08/13/2016 DELGADO ADOLFO R BELLY DANCER Ot L97.412 NON-PRS CHR ULCER OF RIGHT HEEL AND MIDF 08/14/2016 DELGADO ADOLFO R BELLY DANCER Ot E11.621 TYPE 2 DIABETES MELLITUS WITH FOOT ULCER 08/14/2016 DELGADO ADOLFO R BELLY DANCER Ot L97.412 NON-PRS CHR ULCER OF RIGHT HEEL AND MIDF 09/15/2016 ADOLFO NATARAJAN R BELLY DANCER Ot E11.621 TYPE 2 DIABETES MELLITUS WITH FOOT ULCER 09/15/2016 DELGADO ADOLFO Mercado BELLY DANCER Ot L97.412 NON-PRS CHR ULCER OF RIGHT HEEL AND MIDF 09/15/2016 POLLY NATARAJANRobbi Mercado BELLY DANCER Ot E11.621 TYPE 2 DIABETES MELLITUS WITH FOOT ULCER 09/15/2016 DELGADOPOLLYRobbi Mercado BELLY DANCER Ot L97.412 NON-PRS CHR ULCER OF RIGHT HEEL AND MIDF 09/28/2016 DELGADOPOLLYRobbi Mercado BELLY DANCER Ot E11.621 TYPE 2 DIABETES MELLITUS WITH FOOT ULCER 09/28/2016 DELGADO ADOLFO Mercado BELLY DANCER Ot L97.412 NON-PRS CHR ULCER OF RIGHT HEEL AND MIDF 09/30/2016 POLLY NATARAJANRobbi Mercado BELLY DANCER Ot E11.621 TYPE 2 DIABETES MELLITUS WITH FOOT ULCER 09/30/2016 DELGADO ADOLFO Mercado BELLY DANCER Ot L97.412 NON-PRS CHR ULCER OF RIGHT HEEL AND MIDF 10/14/2016 Ot E11.621 TYPE 2 DIABETES MELLITUS WITH FOOT ULCER 10/14/2016 Ot L97.419 NON-PRS CHR ULCER OF RIGHT HEEL AND MIDF 10/14/2016 Ot M48.02 SPINAL STENOSIS, CERVICAL REGION 10/14/2016 Ot R53.1 WEAKNESS 10/14/2016 Ot Z79.4 COMPLIANCE COORDINATOR (CURRENT) USE OF INSULIN 10/18/2016 Ot E11.621 TYPE 2 DIABETES MELLITUS WITH FOOT ULCER 10/18/2016 Ot L97.419 NON-PRS CHR ULCER OF RIGHT HEEL AND MIDF 10/18/2016 Ot M48.02 SPINAL STENOSIS, CERVICAL REGION 10/18/2016 Ot R53.1 WEAKNESS 10/18/2016 Ot Z79.4 COMPLIANCE COORDINATOR (CURRENT) USE OF INSULIN 10/21/2016 JOSEY SALINAS MD Ot E11.9 TYPE 2 DIABETES MELLITUS WITHOUT COMPLIC 10/21/2016 JOSEY SALINAS MD Ot F32.9 MAJOR DEPRESSIVE DISORDER, SINGLE EPISOD 10/21/2016 JOSEY SALINAS MD Ot G47.33 OBSTRUCTIVE SLEEP APNEA (ADULT) (PEDIATR 10/21/2016 JOSEY SALINAS MD Ot G56.93 UNSPECIFIED MONONEUROPATHY OF BILATERAL 10/21/2016 JOSEY SALINAS MD Ot G57.93 UNSPECIFIED MONONEUROPATHY OF BILATERAL 10/21/2016 JOSEY SALINAS MD Ot I10 ESSENTIAL (PRIMARY) HYPERTENSION 10/21/2016 JOSEY SALINAS MD Ot M19.90 UNSPECIFIED OSTEOARTHRITIS, UNSPECIFIED 10/21/2016 JOSEY SALINAS MD Ot R53.1 WEAKNESS 10/21/2016 JOSEY SALINAS MD Ot Z48.89 ENCOUNTER FOR OTHER SPECIFIED SURGICAL A 10/21/2016 JOSEY SALINAS MD Ot Z79.4 HALFWAY (CURRENT) USE OF INSULIN 10/23/2016 JOSEY SALINAS MD Ot E11.9 TYPE 2 DIABETES MELLITUS WITHOUT COMPLIC 10/23/2016 JOSEY SALINAS MD Ot F32.9 MAJOR DEPRESSIVE DISORDER, SINGLE EPISOD 10/23/2016 JOSEY SALINAS MD E Ot G47.33 OBSTRUCTIVE SLEEP APNEA (ADULT) (PEDIATR 10/23/2016 JOSEY SALINAS MD E Ot G56.93 UNSPECIFIED MONONEUROPATHY OF BILATERAL 10/23/2016 JOSEY SALINAS MD E Ot G57.93 UNSPECIFIED MONONEUROPATHY OF BILATERAL 10/23/2016 JOSEY SALINAS MD E Ot I10 ESSENTIAL (PRIMARY) HYPERTENSION 10/23/2016 JOSEY SALINAS MD Ot M19.90 UNSPECIFIED OSTEOARTHRITIS, UNSPECIFIED 10/23/2016 JOSEY SALINAS MD Ot R53.1 WEAKNESS 10/23/2016 JOSEY SALINAS MD Ot Z48.89 ENCOUNTER FOR OTHER SPECIFIED SURGICAL A 10/23/2016 JOSEY SALINAS MD Ot Z79.4 COMPLIANCE COORDINATOR (CURRENT) USE OF INSULIN Procedures Code Description Performed By Performed On 81.51 TOTAL HIP REPLACEMENT 03/18/2009 Results Test Result Range Bacteria identification in isolate by anaerobe culture - 05/07/16 15:40 QUANTITY OF GROWTH Isolated NRG Bacteria identification in isolate by anaerobe culture [id number] NRG Gram stain microscopy - 05/07/16 15:40 GRAM STAIN RESULT FEW GRAM NEGATIVE RODS NRG Bacteria identification in wound by culture - 05/07/16 15:40 Bacteria identification in wound by culture [id number] NR FREE TEXT EXTERNAL BETA LACTAMASE NEGATIVE NRG QUANTITY OF GROWTH Moderate Growth NRG MRSA AGAR Screening test for MRSA is NEGATIVE (Final to follow) [facility] FREE TEXT ENTRY 2 (99% PROBABILITY) SEE COMMENT [facility] Bacterial susceptibility panel - 05/07/16 15:40 Oxacillin [...] Bacteria identification in isolate by anaerobe culture [id number] NRG Gram stain microscopy - 06/11/16 13:24 GRAM STAIN RESULT NO WBC'S OR BACTERIA OBSERVED NRG Bacteria identification in wound by culture - 06/11/16 13:24 Bacteria identification in wound by culture [id number] NRG FREE TEXT EXTERNAL SENSITIVITY REPORTED 06/14/16 [...] 13:01 Bacteria identification in wound by culture [id number] NR FREE TEXT EXTERNAL SENSITIVITY REPORTED 07/25/16 8:20 [...] culture NOANA NRG Gram stain microscopy - 09/15/16 13:05 GRAM STAIN RESULT FEW WBC'S, NO BACTERIA OBSERVED NR Bacteria identification in wound by culture - 09/15/16 13:05 Bacteria identification in wound by culture [id number] [facility] FREE TEXT EXTERNAL NO FURTHER STUDIES UNLESS REQUESTED NRG QUANTITY OF GROWTH Scant Growth NR Bacterial susceptibility panel - 09/15/16 13:05 Gentamicin [...] measurement by glucometer (mass/volume) 132 mg/dL 70-110 Capillary blood glucose measurement by glucometer (mass/volume) - 10/22/16 06: 16 Capillary blood glucose measurement by glucometer (mass/volume) 106 mg/dL 70-110 Capillary blood glucose measurement by glucometer (mass/volume) - 10/22/16 10: 57 Capillary blood glucose measurement by glucometer (mass/volume) 139 mg/dL 70-110 Capillary blood glucose measurement by glucometer (mass/volume) - 10/22/16 16: 39 Capillary blood glucose measurement by glucometer (mass/volume) 133 mg/dL 70-110 Capillary blood glucose measurement by glucometer (mass/volume) - 10/22/16 21: 13 Capillary blood glucose measurement by glucometer (mass/volume) 150 mg/dL 70-110 Capillary blood glucose measurement by glucometer (mass/volume) - 10/23/16 04: 44 Capillary blood glucose measurement by glucometer (mass/volume) 79 mg/dL 70-110 Capillary blood glucose measurement by glucometer (mass/volume) - 10/23/16 11: 23 Capillary blood glucose measurement by glucometer (mass/volume) 90 mg/dL 70-110 Capillary blood glucose measurement by glucometer (mass/volume) - 10/23/16 16: 22 Capillary blood glucose measurement by glucometer (mass/volume) 100 mg/dL 70-110 Capillary blood glucose measurement by glucometer (mass/volume) - 10/23/16 21: 20 Capillary blood glucose measurement by glucometer (mass/volume) 249 mg/dL 70-110 Capillary blood glucose measurement by glucometer (mass/volume) - 10/24/16 06: 24 Capillary blood glucose measurement by glucometer (mass/volume) 141 mg/dL 70-110 Capillary blood glucose measurement by glucometer (mass/volume) - 10/24/16 10: 50 Capillary blood glucose measurement by glucometer (mass/volume) 150 mg/dL 70-110 Capillary blood glucose measurement by glucometer (mass/volume) - 10/24/16 16: 12 Capillary blood glucose measurement by glucometer (mass/volume) 84 mg/dL 70-110 Capillary blood glucose measurement by glucometer (mass/volume) - 10/24/16 17: 26 Capillary blood glucose measurement by glucometer (mass/volume) 124 mg/dL 70-110 Capillary blood glucose measurement by glucometer (mass/volume) - 10/24/16 21: 03 Capillary blood glucose measurement by glucometer (mass/volume) 50 mg/dL 70-110 Capillary blood glucose measurement by glucometer (mass/volume) - 10/24/16 21: 44 Capillary blood glucose measurement by glucometer (mass/volume) 96 mg/dL 70-110 Capillary blood glucose measurement by glucometer (mass/volume) - 10/25/16 05: 29 Capillary blood glucose measurement by glucometer (mass/volume) 119 mg/dL 70-110 Capillary blood glucose measurement by glucometer (mass/volume) - 10/25/16 11: 00 Capillary blood glucose measurement by glucometer (mass/volume) 161 mg/dL 70-110 Capillary blood glucose measurement by glucometer (mass/volume) - 10/25/16 15: 58 Capillary blood glucose measurement by glucometer (mass/volume) 97 mg/dL 70-110 Capillary blood glucose measurement by glucometer (mass/volume) - 10/25/16 18: 22 Capillary blood glucose measurement by glucometer (mass/volume) 74 mg/dL 70-110 Capillary blood glucose measurement by glucometer (mass/volume) - 10/25/16 21: 54 Capillary blood glucose measurement by glucometer (mass/volume) 122 mg/dL 70-110 Capillary blood glucose measurement by glucometer (mass/volume) - 10/26/16 06: 16 Capillary blood glucose measurement by glucometer (mass/volume) 124 mg/dL 70-110 Capillary blood glucose measurement by glucometer (mass/volume) - 10/26/16 11: 44 Capillary blood glucose measurement by glucometer (mass/volume) 190 mg/dL 70-110 Capillary blood glucose measurement by glucometer (mass/volume) - 10/26/16 16: 05 Capillary blood glucose measurement by glucometer (mass/volume) 74 mg/dL 70-110 Capillary blood glucose measurement by glucometer (mass/volume) - 10/26/16 20: 42 Capillary blood glucose measurement by glucometer (mass/volume) 147 mg/dL 70-110 Capillary blood glucose measurement by glucometer (mass/volume) - 10/27/16 06: 50 Capillary blood glucose measurement by glucometer (mass/volume) 133 mg/dL 70-110 Capillary blood glucose measurement by glucometer (mass/volume) - 10/27/16 10: 58 Capillary blood glucose measurement by glucometer (mass/volume) 159 mg/dL 70-110 Capillary blood glucose measurement by glucometer (mass/volume) - 10/27/16 16: 19 Capillary blood glucose measurement by glucometer (mass/volume) 123 mg/dL 70-110 Capillary blood glucose measurement by glucometer (mass/volume) - 10/27/16 22: 50 Capillary blood glucose measurement by glucometer (mass/volume) 127 mg/dL 70-110 Capillary blood glucose measurement by glucometer (mass/volume) - 10/28/16 05: 39 Capillary blood glucose measurement by glucometer (mass/volume) 119 mg/dL 70-110 Capillary blood glucose measurement by glucometer (mass/volume) - 10/28/16 11: 05 Capillary blood glucose measurement by glucometer (mass/volume) 132 mg/dL 70-110 Capillary blood glucose measurement by glucometer (mass/volume) - 10/28/16 15: 26 Capillary blood glucose measurement by glucometer (mass/volume) 91 mg/dL 70-110 Capillary blood glucose measurement by glucometer (mass/volume) - 10/28/16 21: 30 Capillary blood glucose measurement by glucometer (mass/volume) 147 mg/dL 70-110 Capillary blood glucose measurement by glucometer (mass/volume) - 10/29/16 06: 30 Capillary blood glucose measurement by glucometer (mass/volume) 121 mg/dL 70-110 Capillary blood glucose measurement by glucometer (mass/volume) - 10/29/16 11: 03 Capillary blood glucose measurement by glucometer (mass/volume) 121 mg/dL 70-110 Capillary blood glucose measurement by glucometer (mass/volume) - 10/29/16 18: 13 Capillary blood glucose measurement by glucometer (mass/volume) 96 mg/dL 70-110 Capillary blood glucose measurement by glucometer (mass/volume) - 10/29/16 22: 07 Capillary blood glucose measurement by glucometer (mass/volume) 229 mg/dL 70-110 Capillary blood glucose measurement by glucometer (mass/volume) - 10/30/16 04: 57 Capillary blood glucose measurement by glucometer (mass/volume) 88 mg/dL 70-110 Capillary blood glucose measurement by glucometer (mass/volume) - 10/30/16 07: 20 Capillary blood glucose measurement by glucometer (mass/volume) 108 mg/dL 70-110 Capillary blood glucose measurement by glucometer (mass/volume) - 10/30/16 10: 53 Capillary blood glucose measurement by glucometer (mass/volume) 140 mg/dL 70-110 Automated blood complete blood count (hemogram) panel - 10/30/16 12:35 Blood leukocytes automated count (number/volume) 9.5 10*3/ uL 4.3-11.0 Blood erythrocytes automated count (number/volume) 4.46 10*6 /uL 4.35-5.85 Venous blood hemoglobin measurement (mass/volume) 13.2 g/dL 13.3-17.7 Blood hematocrit (volume fraction) 39 % 40-54 Automated erythrocyte mean corpuscular volume 87 [foz_us] 80-99 Automated erythrocyte mean corpuscular hemoglobin (mass per erythrocyte) 30 pg 25-34 Automated erythrocyte mean corpuscular hemoglobin concentration measurement ( mass/volume) 34 g/dL 32-36 Automated erythrocyte distribution width ratio 15.3 % 10.0-14.5 Automated blood platelet count (count/volume) 348 10*3/uL 130-400 Automated blood platelet mean volume measurement 8.5 [foz_us ] 7.4-10.4 Whole blood basic metabolic panel - 10/30/16 12:35 Serum or plasma sodium measurement (moles/volume) 142 mmol/ L 135-145 Serum or plasma potassium measurement (moles/volume) 3.2 mmol/L 3.6-5.0 Serum or plasma chloride measurement (moles/volume) 103 mmol /L 98-107 Carbon dioxide 30 mmol/L 21-32 Serum or plasma anion gap determination (moles/volume) 9 mmol/L 5-14 Serum or plasma urea nitrogen measurement (mass/volume) 14 mg/dL 7-18 Serum or plasma creatinine measurement (mass/volume) 0.77 mg /dL 0.60-1.30 Serum or plasma urea nitrogen/creatinine mass ratio 18 NRG Serum or plasma creatinine measurement with calculation of estimated glomerular filtration rate > NRG Serum or plasma glucose measurement (mass/volume) 113 mg/dL 70-105 Serum or plasma calcium measurement (mass/volume) 9.6 mg/dL 8.5-10.1 Blood type T Indirect antibody screen panel - 10/30/16 12:35 ABO+Rh group AP NRG Transfusion band number [id number] NRG Blood group antibody screen NEGATIVE NRG Capillary blood glucose measurement by glucometer (mass/volume) - 10/30/16 15: 34 Capillary blood glucose measurement by glucometer (mass/volume) 73 mg/dL 70-110 Encounters ACCT No. Visit Date/Time Discharge Status Pt. Type Provider Facility Loc./Unit Complaint [id number] 10/08/2016 12:08:00 2016 16:00:00 DIS Outpatient ADOLFO NATARAJAN BELLY DANCER [facility] [id number] 08/04/2016 11:54:00 2016 00:01:00 DIS Outpatient ADOLFO NATARAJAN BELLY DANCER [facility] [id number] 11/05/2014 18:04:00 2014 23:59:59 CLS Outpatient DA ARROYO [facility] QUICK [id number] 06/08/2014 10:07:00 2014 23:59:59 CLS Outpatient KARLY BAILEY BELLY DANCER [facility] QUICK [id number] 10/19/2016 16:34:00 ACT Inpatient BRAD HAGER, JOSEY Celestin [facility] IRF CERVICAL SPONDYLOSIS WITH MYELOPATHY [id number] 10/12/2016 20:12:00 Document Registration [id number] 09/15/2016 13:59:00 ACT Outpatient ADOLFO NATARAJAN APRN [facility] LAB E11.621 [id number] 08/04/2016 11:40:00 ACT Outpatient ADOLFO NATARAJAN APRN [facility] LAB E11.621 [id number] 05/13/2016 16:28:00 ACT Outpatient ADOLFO NATARAJAN APRN [facility] RAD L97.412,E11.621 [id number] 03/18/2009 05:46:00 Document Registration
[2016-10-30] MEDS ORDERED: VANCOMYCIN 1000 MG/VIAL ONE (17:58)
[2016-10-30] MEDS ORDERED: GENTAMICIN 40 MG/ML 2 ML INJ SDV ONE (17:59)
[2016-10-30] MEDS ORDERED: ceFAZolin 1,000 MG (ANCEF) VIAL IV ONE (18:00)
[2016-10-30] MEDS ORDERED: morphine INJ 10 MG/ML 1ML (SYR OR VIAL) ONE (20:44)
[2016-10-30] MEDS ORDERED: ONDANSETRON 4 MG/2 ML (SDV) Z0FRAN ONE (20:45)
--- NOTE | 2016-10-30 21:09 | Diagnostic Imaging Report ---
Indication: Neck pain. Comparison: MRI of the cervical spine from 10/29/2016 Findings and Impression: Multiple fluoroscopic images were obtained during posterior instrumented fusion of the cervical thoracic spine. These demonstrate placement of paired vertical spanning rods with multilevel lateral mass and transpedicular screws. A total of 15 seconds or fluoroscopy was utilized for this procedure performed by Dr. Atkinson. Please see operative report for complete details. Dictated by: Dictated on workstation # [id number]
[2016-10-30] MEDS: morphine INJ 10 MG/ML 1ML (SYR OR VIAL) IVP PRN ×2 (21:13→21:27)
[2016-10-30] MEDS ORDERED: ONDANSETRON 4 MG/2 ML (SDV) Z0FRAN IVP PRN (21:15)
[2016-10-30] MEDS ORDERED: HYDROmorphone (DILAUDID) 2 MG/ML VIAL IVP PRN (21:15)
[2016-10-30 22:00] VITALS: BP 124/75
[2016-10-30 23:00] VITALS: BP 122/81
[2016-10-31] VITALS (16 sets, daily range): BP systolic 126–184; BP diastolic 82–109
[2016-10-31] MEDS ORDERED: DEXAMETHASONE 4 MG/ML SDV (DECADRON) IV ONE
[2016-10-31] MEDS: HYDROmorphone (DILAUDID) 2 MG/ML VIAL IVP PRN ×6 (00:10→19:04)
[2016-10-31] MEDS: DIAZEPAM INJ 10 MG/2 ML (VALIUM) SYR IV PRN (03:26)
[2016-10-31 04:58] LABS: BASOPHILS % (AUTO) 0 % (0-10); EOSINOPHILS % (AUTO) 0 % (0-10); LYMPHOCYTES # (AUTO) 0.5 X 10^3 (1.0-4.0); LYMPHOCYTES % (AUTO) 5 % (12-44); MEAN CORPUSCULAR HEMOGLOBIN 29 PG (25-34); MEAN CORPUSCULAR HGB CONC 33 G/DL (32-36); MEAN CORPUSCULAR VOLUME 88 FL (80-99); MEAN PLATELET VOLUME 8.6 FL (7.4-10.4); MONOCYTES # (AUTO) 0.2 X 10^3 (0.0-1.0); MONOCYTES % (AUTO) 2 % (0-12); NEUTROPHILS # (AUTO) 8.4 X 10^3 (1.8-7.8); NEUTROPHILS % (AUTO) 93 % (42-75); PLATELET COUNT 365 10^3/uL (130-400); RED BLOOD COUNT 4.26 10^6/uL (4.35-5.85)
[2016-10-31 05:13] LABS: ANION GAP 14 MMOL/L (5-14); BLOOD UREA NITROGEN 17 MG/DL (7-18); BUN/CREATININE RATIO 21; CALCIUM 9.1 MG/DL (8.5-10.1); CARBON DIOXIDE 23 MMOL/L (21-32); CHLORIDE 104 MMOL/L (98-107); CREATININE SERUM 0.81 MG/DL (0.60-1.30); GFR ESTIMATED > 60; GLUCOSE 205 MG/DL (70-105); MAGNESIUM 1.7 MG/DL (1.8-2.4); PHOSPHORUS 4.7 MG/DL (2.3-4.7); POTASSIUM 4.2 MMOL/L (3.6-5.0); SODIUM 141 MMOL/L (135-145)
[2016-10-31] MEDS: LACTATED RINGERS 1,000 ML IV PRN (05:26)
[2016-10-31] MEDS: MAGNESIUM 1 GM/100 ML IVPB 100 ML IV SCH ×2 (05:27→06:26)
[2016-10-31] MEDS ORDERED: KCL 20 MEQ TAB (K-DUR) PO SCH (06:00)
[2016-10-31] MEDS ORDERED: MAGNESIUM 1 GM/100 ML IVPB 100 ML IV SCH (06:00)
[2016-10-31] MEDS ORDERED: POTASSIUM CL 10MEQ/50ML IVPB 50 ML IV SCH (06:00)
--- NOTE | 2016-10-31 08:34 | Diagnostic Imaging Report ---
INDICATION: Dyspnea. COMPARISON: 10/12/2016. FINDINGS: Cervical fusion is again noted with pedicle screws and rods. The lungs are well aerated. No findings to indicate aspiration infiltrates. No pneumothorax or pleural effusion. The heart is not enlarged. No hilar adenopathy. IMPRESSION: 1. Postoperative cervical fusion changes. 2. Lungs are well-aerated and clear. Dictated by: Dictated on workstation # [id number]
--- NOTE | 2016-10-31 11:15 | Occupational Therapy Eval ---
OT Evaluation-General/PLF Medical Diagnosis Admission Date Oct 30, 2016 at 21:53 Medical Diagnosis: cervical surgery Onset Date: Oct 30, 2016 Therapy Diagnosis Therapy Diagnosis: decr self care, decr activ tolerance, weakness, decr funct mobility Height/Weight Height (Feet): 5 Height (Inches): 11.00 Weight (Pounds): 234 Weight (Ounces): 0.0 Precautions Precautions/Isolations: Standard Precautions Safety Interventions: None Referral Physician: [place] Referral Reason: Evaluation/Treatment Medical History Pertinent Medical History: Arthritis, DM, HTN, Neuropathy, OA Additional Medical History Sleep apnea (uses bipap), chronic constipation, chronic back pain, psoriasis, depression. CTS bilat, chronic L hip and knee pain (has neoprene knee brace), recent falls Current History Pt fell at home on 10-12-16. Had cervical reconstruction C3-C7 on 10-15-16 and has rigid cervical collar, to be on at all times except when eating. Pt has been non weight-bearing on R LE for 4 months while healing diabetic ulcer R heel. Said he hobbled around using a crutch but can't hold one now. Pt had a decline in function and was readmitted to acute care for additional cervical surgery on 10-30-16. Reviewed History: Yes ADL-Prior Level of Function ADL PLOF Comments Pt reported that he previously has been able to manage his basic self care needs until recently when he has declined. 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 He said his recent activity level was hobbling to the living room and sitting all day in his underwear and t -shirt. Pt was most recently on ARU but had a decline in function and was dependant for ADLs by time of second surgery. DME/Equipment: Grab Bars, Shower Hose Coach Builder, Tub/Shower Occupation: unemployed OT Current Status Subjective Pt seen in room in ICU, in bed, agreeable to OT. Pain not rated. Appearance Alert, cooperative Mental Status/Objective Patient Orientation: Person, Place, Time, Situation Attachments: Tobin Catheter, IV (L hand), Saline Lock (R hand), Telemetry Current Glasses/Contacts: Yes Hearing Aids: No Dentures/Partials: No Hand Dominance: Right Upper Extremity ROM L UE shoulder flex to approx 90 degrees (limited by tubes and wires). Active elbow flex and ext against gravity, active pron/sup, wrist flex and ext, finger flex and ext (limited by edema). Unable to make a complete fist. R UE - unable to do shoulder flex. Elbow flex with gravity eliminated but not against gravity. Wrist ext to neutral. Can flex all fingers actively (less with index) but unable to touch fingers to palm. Significant edema R hand UE and hand function is close to movement he had when first admitted to ARU ( this OT did his evaluation on ARU) Edema: In hands, R worse than L Pt reported that he thinks muscle spasms in legs are also decreased. ADL-Treatment ADL-Current Pt is NPO but he was able to get an ice chip to his mouth with L hand, holding on to built-up handle on spoon. He could not scoop it or maintain chip on spoon but could probably feed himself something like pudding, with help scooping. Found small water mug that he could hold with L hand once he is allowed to have water (suggest filling it only half way). Functional [place] Measure 0=Not Assessed/NA 4=Minimal Assistance 1=Total Assistance 5=Supervision or Setup 2=Maximal Assistance 6=Modified [place] 3=Moderate Assistance 7=Complete IndependenceIRFPAI Quality Coding Scale 6 Independent with activity with or without an assistive device 5 Patient requires set up or clean up by helper. Patient completes activity by themselves 4 Supervision or touching assist (CGA). Ethel provide cues , steadying assist 3 The helper provides less than half the effort to complete the activity 2 The helper provides more than half the effort to complete the activity 1 Dependent. The helper does all the effort to complete an activity 7 Patient refused to complete or attempt activity 9 The patient did not perform the activity before the current illness or injury 88 Not attempted due to Medical conditions or safety concerns On rehab unit, pt was dependant with transfers, using sit to stand lift, dependant with toileting using lift Other Treatments Bilat UEs elevated on pillows. Pt education to elevate arms, to do active movement as he is able (especially hand flex and ext) to strengthen and to help decrease edema and to help feed himself when he is able. Information on hand function shared with Dr Duvall and Stephanie DONATO. Education OT Patient Education: Instructions to caregiver, Modified ADL techniques, Progress toward Goal/Update tx plan, Purpose of tx/functional activities Teaching Recipient: Patient Teaching Methods: Demonstration Response to Teaching: Verbalize Understanding OT Sheet Metal Installer Goals Sheet Metal Installer Goals Time Frame: Nov 06, 2016 Eating (FIM): 3 Grooming(FIM): 3 Bathing(FIM): 2 Upper Body Dressing(FIM): 2 Lower Body Dressing(FIM): 1 Additional Goals: 2-Verbalize Understanding, 3-ImproveStrength/Fady 1=Demonstrate adherence to instructed precautions during ADL tasks. 2=Patient will verbalize/demonstrate understanding of assistive devices/ modifications for ADL. 3=Patient will improve strength/tolerance for activity to enable patient to perform ADL's. OT Education/Plan Problem List/Assessment Assessment: Decreased Activ Tolerance, Decreased UE Strength, Dependent Transfers, Edema, Impaired Bed Mobility, Impaired Coordination, Impaired Funct Balance, Impaired Self-Care Skills, Restricted Funct UE ROM Pt would benefit from skilled OT to increase his independence in basic self care to allow him to return to his home safely and to decrease caregiver burden Discharge Recommendations Plan/Recommendations: Continue POC Therapy D/C Recommendations: Acute Rehab Target Placement Acute rehab unit Treatment Plan/Plan of Care Treatment,Training & Education: Yes Patient would benefit from OT for education, treatment and training to promote independence in ADL's, mobility, safety and/or upper extremity function for ADL' s. Plan of Care: ADL Retraining, Functional Mobility, UE Funct Exercise/Act, UE Neuromus Re-Ed/Coord Treatment Duration: Nov 06, 2016 # of days/week 5 Visits Per Week: 5 Agreement: Yes Rehab Potential: Fair Time/GCodes Start Time: 10:20 Stop Time: 10:50 Total Time Billed (hr/min): 30 Billed Treatment Time visit, 30 minutes evaluation high intensity THAI HOOVER OT Oct 31, 2016 11:15
[2016-10-31] MEDS ORDERED: HYDROcodone/APAP 10 MG/325 MG (LORTAB) TAB PO SCH (11:45)
[2016-10-31] MEDS ORDERED: HYDROcodone/APAP 10 MG/325 MG (LORTAB) TAB PO PRN (11:45)
[2016-10-31] MEDS ORDERED: morphine INJ 4 MG/ML 1 ML (VIAL/SYRINGE) IVP PRN (11:45)
[2016-10-31] MEDS ORDERED: ACETAMINOPHEN 500 MG TAB (TYLENOL) PO PRN ×2 (11:45)
[2016-10-31] MEDS ORDERED: LACTATED RINGERS 1,000 ML IV SCH (11:45)
[2016-10-31] MEDS: amLODIPine 5 MG (NORVASC) TAB PO SCH (12:11)
[2016-10-31] MEDS: HYDROCHLOROTHIAZIDE 25 MG (HCTZ) TAB PO SCH (12:11)
--- NOTE | 2016-10-31 12:38 | History & Physical-Hospitalist ---
HPI History of Present Illness: HPI/Chief Complaint CC: s/p cervical spine surgery due to spinal cord compression HPI: This is a 61-year-old white male patient of Dr. Falcon's that I have been taking care of since he had surgery in [facility] 2 and half weeks ago due to cervical spine cord compression had his first stage of surgery done there with good results then transferred over to rehabilitation via [facility] for rehabilitation that now required an urgent second phase surgery by Dr. Atkinson due to continued spinal cord compression that was uncomplicated last night. He is doing well except for mild dysphagia we are presuming an aspiration risk so we are just holding off on anything but ice chips and evaluating with a speech therapy consult. I have reconciled all of his home medicine and restarted all of his blood pressure medicine and insulin regimen. He is telling me about how bad his pain is of which Dilaudid and Percocet are ordered with good response. The intention is to return to rehabilitation unit next week. 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 Smoke Exposure: No Recent Foreign Travel: No Contact w/other who traveled: No Recent Hopitalizations: Yes Recent Infectious Disease Expo: No Seasonal Allergies Seasonal Allergies: No Surgeries HX Surgeries: Yes Surgeries: Orthopedic Respiratory Hx Respiratory Disorders: Yes Respiratory Disorders: Sleep Apnea Cardiovascular Hx Cardiovascular Disorders: Yes Cardiac Disorders: High Cholesterol, Hypertension Neurological Hx Neurological Disorders: Yes Neurological Disorders: Neuropathy Reproductive System Hx Reproductive Disorders: No Genitourinary Hx Genitourinary Disorders: Yes Genitourinary Disorders: Benign Prostatic Hyperpl Gastrointestinal Hx Gastrointestinal Disorders: Yes Gastrointestinal Disorders: Chronic Constipation Musculoskeletal Hx Musculoskeletal Disorders: Yes Musculoskeletal Disorders: Arthritis, Chronic Back Pain, Contracture Endocrine Hx Endocrine Disorders: Yes Endocrine Disorders: Diabetes, Insulin dep HEENT HX ENT Disorders: No HEENT Disorders: Cataract Hearing Impairment: Denies Cancer Hx Cancer: No Psychosocial Hx Psychiatric Problems: No Integumentary Skin/Integumentary Disorders: Psoriasis Blood Transfusions Hx Blood Disorders: No Review of Systems Constitutional: see HPI, weakness EENTM: no symptoms reported Respiratory: no symptoms reported Cardiovascular: no symptoms reported Gastrointestinal: no symptoms reported Genitourinary: no symptoms reported Musculoskeletal: neck pain Skin: no symptoms reported Psychiatric/Neurological: No Symptoms Reported All Other Systems Reviewed Negative Unless Noted: Yes Physical Exam Physical Exam Vital Signs Vital Sign - Last 12Hours 10/30/16 10/30/16 10/30/16 21:15 21:50 22:00 Pulse 81 Resp 18 B/P (MAP) 124/75 Pulse Ox 99 O2 Delivery Nasal Cannula O2 Flow Rate 2.00 Capillary Refill : General Appearance: No Apparent Distress, WD/WN, Chronically ill Eyes: Bilateral Eye Normal Inspection, Bilateral Eye PERRL HEENT: PERRL/EOMI, Normal ENT Inspection, Pharynx Normal Neck: Full Range of Motion, Normal Inspection, Non Tender, Supple, Carotid Bruit Respiratory: Chest Non Tender, Lungs Clear, Normal Breath Sounds, No Accessory Muscle Use, No Respiratory Distress Cardiovascular: Regular Rate, Rhythm, No Edema, No Gallop, No JVD, No Murmur, Normal Peripheral Pulses Gastrointestinal: Normal Bowel Sounds, No Organomegaly, No Pulsatile Mass, Non Tender, Soft Back: Normal Inspection, No CVA Tenderness, No Vertebral Tenderness Extremity: Normal Capillary Refill, Normal Inspection, Normal Range of Motion ( weaknes of legs and arms but improved from prior to surgery), Non Tender, No Calf Tenderness, No Pedal Edema Neurologic/Psychiatric: Alert, Oriented x3, No Motor/Sensory Deficits, Normal Mood/Affect, Motor Weakness (legs and arms from cervical spine compression) Skin: Normal Color, Warm/Dry Lymphatic: No Adenopathy Results Results/Procedures Lab Laboratory Tests 10/31/16 04:49 Assessment/Plan Admission Diagnosis Assessment: status post cervical spine surgery stage II of 2 stage surgery for spinal cord compression POD # 1 Dysphagia due to edema from neck surgery NPO for now except ice ships and PO meds Diabetes mellitus Obstructive sleep apnea compliant with treatment Hypertension Hyperlipidemia Status post narcotic bowel requiring soapsuds enema for disimpaction 2 and half weeks ago maintained on regimen Assessment and Plan Plan: Speech therapy evaluation and nothing by mouth except for ice chips and meds until then since may be an aspiration risk Pain medication Monitor labs SCDs Bowel regimen Monitor closely Clinical Quality Measures DVT/VTE Risk/Contraindication: Risk Factor Score Per Nursin RFS Level Per Nursing on Admit: 4+=Very High KEANU LI DO Oct 31, 2016 12:38
--- NOTE | 2016-10-31 12:50 | Progress Note (SOAP) ---
Subjective Time Seen by Provider: 12:47 Subjective/Events-last exam Patient has noted improved motor function x4 extremities. Moving all better. Pain moderate, but tolerable Objective Exam Vital Signs Date Time Temp Pulse Resp B/P (MAP) Pulse Ox O2 Delivery O2 Flow Rate FiO2 10/31/16 08:00 98 Nasal Cannula 2.00 10/31/16 07:00 84 10/31/16 06:58 Nasal Cannula 2.00 10/31/16 06:00 93 12 160/100 100 Nasal Cannula 2.00 10/31/16 05:00 97 12 153/107 99 Nasal Cannula 2.00 10/31/16 04:00 88 12 144/91 98 Nasal Cannula 2.00 10/31/16 04:00 98 Nasal Cannula 2.00 10/31/16 03:00 85 10 138/96 99 Nasal Cannula 2.00 10/31/16 02:00 81 12 138/89 98 Nasal Cannula 2.00 10/31/16 01:00 84 10 137/89 99 Nasal Cannula 2.00 10/31/16 01:00 84 10/31/16 00:10 99.0 10/31/16 00:10 99.0 10/31/16 00:00 98 Nasal Cannula 2.00 10/31/16 00:00 81 11 126/82 98 Nasal Cannula 2.00 10/30/16 23:00 87 8 122/81 100 Nasal Cannula 2.00 10/30/16 22:00 82 18 124/75 99 Nasal Cannula 2.00 10/30/16 21:50 Nasal Cannula 2.00 10/30/16 21:15 81 I & O 10/31/16 07:00 Intake Total 1730 ml Output Total 1985 ml Balance -255 ml Capillary Refill : General Appearance: Mild Distress Neck: Supple Respiratory: No Accessory Muscle Use, No Respiratory Distress Cardiovascular: Regular Rate, Rhythm Gastrointestinal: soft, no organomegaly Extremity: Normal Capillary Refill Neurologic/Psychiatric: Alert, Oriented x3, Motor Weakness, Sensory Deficit, Other (improved bilateral upper and lower extremitiy motor, but still globally diminished.) Results Lab Laboratory Tests 10/31/16 04:49: White Blood Count 9.0, Red Blood Count 4.26L, Hemoglobin 12.5L, Hematocrit 37L, Mean Corpuscular Volume 88, Mean Corpuscular Hemoglobin 29, Mean Corpuscular Hemoglobin Concent 33, Red Cell Distribution Width 15.0H, Platelet Count 365, Mean Platelet Volume 8.6, Neutrophils (%) (Auto) 93H, Lymphocytes (%) (Auto) 5L , Monocytes (%) (Auto) 2, Eosinophils (%) (Auto) 0, Basophils (%) (Auto) 0, Neutrophils # (Auto) 8.4H, Lymphocytes # (Auto) 0.5L, Monocytes # (Auto) 0.2, Eosinophils # (Auto) 0.0, Basophils # (Auto) 0.0, Sodium Level 141, Potassium Level 4.2, Chloride Level 104, Carbon Dioxide Level 23, Anion Gap 14, Blood Urea Nitrogen 17, Creatinine 0.81, Estimat Glomerular Filtration Rate > 60, BUN/ Creatinine Ratio 21, Glucose Level 205H, Calcium Level 9.1, Phosphorus Level 4.7 , Magnesium Level 1.7L 10/31/16 10:55: Glucometer 182H Assessment/Plan Assessment/Plan Assess & Plan/Chief Complaint Cervical Stenosis Cervical Spondylosis with myelopathy/mylomalacia S/P Anterior/Posterior Cervical reconstruction Plan: Needs continued supportive care May need swallow study Clinical Quality Measures DVT/VTE Risk/Contraindication: Risk Factor Score Per Nursin RFS Level Per Nursing on Admit: 4+=Very High LEIA SANZ MD Oct 31, 2016 12:50 pm
--- NOTE | 2016-10-31 13:24 | Anesthesia-General Post-Op ---
General Patient Condition Mental Status/LOC: Same as Preop Cardiovascular: Satisfactory Nausea/Vomiting: Absent Respiratory: Satisfactory Pain: Controlled Complications: Absent Post Op Complications Complications some light skin irritation possible tears from eye and tube tape. Spoke with patient, informed it will heal on its own. Verbalized understanding. Follow Up Care/Instructions Patient Instructions None needed. Anesthesia/Patient Condition Patient Condition Patient is doing well, no complaints, stable vital signs, no apparent adverse anesthesia problems. No complications reported per nursing. NELSY ZHOU CRNA Oct 31, 2016 13:24
[2016-10-31] MEDS: BACLOFEN 10 MG (LIORESAL) TAB PO SCH ×2 (14:22→22:21)
[2016-10-31] MEDS: LACTATED RINGERS 1,000 ML IV SCH (14:33)
[2016-10-31] MEDS: inSUlin (REGULAR) HUMAN 1 UNIT/0.01 ML (CHARGE PER UNIT) SC SCH (15:24)
--- NOTE | 2016-10-31 15:35 | Physical Therapy Evaluation ---
PT Evaluation-General Medical Diagnosis Admission Date Oct 30, 2016 at 21:53 Medical Diagnosis: cervical surgery Onset Date: Oct 30, 2016 Therapy Diagnosis Therapy Diagnosis: decreased functional mobility Height/Weight Height (Feet): 5 Height (Inches): 11.00 Weight (Pounds): 234 Weight (Ounces): 0.0 Precautions Precautions/Isolations: Fall Prevention, Standard Precautions cervical precautions; c-collar in place when OOB Weight Bear Status Weight Bearing Restriction: Weight Bearing/Tolerated Location Restriction: LE Bilateral Referral Physician: Eloina Reason for Referral: Evaluation/Treatment Referral Comments Spoke with Dr. Atkinson, agreeable to PT evaluation with no limitations other than c-collar in place when OOB Medical History Pertinent Medical History: Arthritis, DM, HTN, Neuropathy, OA Current History Pt previously on ARU s/p cervical surgery with anterior approach. After neurological decline, taken for additional surgery on 10/30/16 for posterior approach/reconstruction. Reviewed History: Yes Social History Home: Single Level Current Living Status: Significant Other Entry Into Home: Stairs With Railing PT Steps Into Home: 5 Prior/Core FIM Prior Level of Function Functional [place] Measure 0=Not Assessed/NA 4=Minimal Assistance 1=Total Assistance 5=Supervision or Setup 2=Maximal Assistance 6=Modified [place] 3=Moderate Assistance 7=Complete [place] Bed Mobility: 6 Transfers (B,C,W/C) (FIM): 6 Gait: 6 Pt reports (I) at PLOF. 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 PT Evaluation-Current Subjective Pt seen in ICU. Reports overall improvement in ability to move all 4 limbs. Denies spasm at this time. Reports he is "really hurting" but no pain rating provided. Pulled IV from hand while showing how much movement he had in (L) hand. Transferred to 4th floor at conclusion of session. Objective Patient Orientation: Person, Place, Time, Situation Problem Solving: Good Attachments: SCD's, Oxygen, Drains, Tobin Catheter, IV ROM/Strength ROM Upper Extremities See OT ROM Lower Extremities Grossly WFL Strength Upper Extremities See OT Strenght Lower Extremities (B) hip flexion: grossly 2+/5 (B) knee flexion: grossly 2+/5 (B) knee extension: grossly 3-/5 (B) ankle DF: 3+/5 Integumentary/Posture Integumentary See nurses' notes Bladder Incontinence: Tobin Cath Neuromuscular (Tone, Coordination, Reflexes) Intact to light touch (B) LE. No spasm, tone noted this date. Sensory Vision: Wears Glasses Hearing: Functional Hand Dominance: Right Sensation Right Lower Extremit: Intact Sensation Left Lower Extremity: Intact Transfers Functional [place] Measure 0=Not Assessed/NA 4=Minimal Assistance 1=Total Assistance 5=Supervision or Setup 2=Maximal Assistance 6=Modified [place] 3=Moderate Assistance 7=Complete [place] No transfer to EOB attempted this date due Pt c/o high level of pain. Gait Mode of Locomotion: Wheelchair Anticipated Mode of Locomotion: Both Gait (FIM): 0 Wheelchair Training Wheelchair (FIM): 0 Stairs Stairs (FIM): 0 Assessment/Needs Pt is a 61 y.o. male who was experiencing additional neurological decline after anterior cervical reconstruction so he had subsequent posterior reconstruction on 10/30/16. Per Pt report, already experiencing improved motor control in all 4 limbs. High pain this date. Pt would benefit from skilled PT to address weakness , poor balance, and decreased functional mobility to improve (I) with functional mobility and decrease caregiver burden upon discharge. High complexity, unstable clinical presentation. Rehab Potential: Guarded (Pt showed improved neurological status after 1st surgery with subsequent decline. ) Equipment Needs Continue to assess PT Short Term Goals Short Term Goals Time Frame: Nov 14, 2016 Transfers (B,C,W/C) (FIM): 2 (Sit<->stand lift) PT Laminator Goals Care Home Goals PT Laminator Goals Time Frame: Dec 12, 2016 Transfers (B,C,W/C) (FIM): 4 Gait (FIM): 2 Gait distance (FIM): 1=up to 49 ft Distance: 50 Gait Level of Assist: 4 Gait Assistive Device: FWW Wheelchair (FIM): 6 Wheelchair distance (FIM): 3=150 ft Distance: 150 Stairs (FIM): 2 # of Steps: 4 Stairs Level Of Assist: 3 PT goals established to allow safe return home with decreased caregiver burden PT Plan Problem List Problem List: Activity Tolerance, Functional Strength, Safety, Balance, Gait, Transfer, Bed Mobility, ROM Treatment/Plan Treatment Plan: Continue Plan of Care Treatment Plan: Bed Mobility, Education, Functional Activity Fady, Functional Strength, Gait, Safety, Therapeutic Exercise, Transfers Treatment Duration: Dec 12, 2016 # of days/week 5-7 Visits Per Week: 10-11 Pt/Family Agrees w/Plan: Yes Safety Risks/Education Patient Education: Reviewed Precautions Teaching Recipient: Patient Teaching Methods: Discussion Response to Teaching: Verbalize Understanding Discharge Recommendations Plan Continue to assess neurological status Barriers to Progress spasm, pain Time/GCodes Time In: 1236 Time Out: 1305 Total Billed Treatment Time: 29 Total Billed Treatment 1, EVHIGHC x 29' G Codes Necessary: No HUGO BENNETT DPJoseph Oct 31, 2016 15:35
[2016-10-31] MEDS ORDERED: inSUlin (REGULAR) HUMAN 1 UNIT/0.01 ML (CHARGE PER UNIT) SC SCH (16:00)
[2016-10-31] MEDS: metFORMIN 500 MG (GLUCOPHAGE) TAB PO SCH (17:59)
[2016-10-31] MEDS: ONDANSETRON 4 MG/2 ML (SDV) Z0FRAN IVP PRN (19:03)
[2016-10-31] MEDS: LACTULOSE SYRUP 10GM/15ML (ENULOSE) 30ML UDC PO SCH (20:25)
[2016-10-31] MEDS: POLYETHYLENE GLYCOL 17 GM (MIRALAX) PACK PO SCH (20:26)
[2016-10-31] MEDS: SENNA W/DOCUSATE (SENOKOT S) TABLET PO SCH (20:26)
[2016-10-31] MEDS: VERAPAMIL 80 MG (ISOPTIN) TAB PO SCH (20:31)
[2016-10-31] MEDS ORDERED: VERAPAMIL HCL 40 MG PO SCH (21:00)
[2016-10-31] MEDS ORDERED: IRBE300T42 PO (21:40)
[2016-10-31] MEDS: oxyCODONE/APAP 10/325MG (PERCOCET 10) TABLET PO PRN (22:28)
[2016-11-01 00:05] VITALS: BP 139/69
[2016-11-01] MEDS: inSUlin ASPART (NovoLOG) 1 UNIT/0.01 ML (CHARGE PER UNIT) SC SCH ×4 (00:28→18:22)
[2016-11-01] MEDS: LACTATED RINGERS 1,000 ML IV SCH ×3 (00:28→23:52)
[2016-11-01] MEDS: DIAZEPAM INJ 10 MG/2 ML (VALIUM) SYR IV PRN ×2 (00:29→20:13)
[2016-11-01 04:02] VITALS: BP 131/76
[2016-11-01] MEDS: HYDROmorphone (DILAUDID) 2 MG/ML VIAL IVP PRN (04:27)
[2016-11-01 05:18] LABS: BASOPHILS % (AUTO) 0 % (0-10); EOSINOPHILS # (AUTO) 0.1 10^3/uL (0.0-0.3); EOSINOPHILS % (AUTO) 1 % (0-10); LYMPHOCYTES # (AUTO) 1.6 X 10^3 (1.0-4.0); LYMPHOCYTES % (AUTO) 13 % (12-44); MEAN CORPUSCULAR HEMOGLOBIN 29 PG (25-34); MEAN CORPUSCULAR HGB CONC 33 G/DL (32-36); MEAN CORPUSCULAR VOLUME 88 FL (80-99); MEAN PLATELET VOLUME 8.4 FL (7.4-10.4); MONOCYTES # (AUTO) 1.5 X 10^3 (0.0-1.0); MONOCYTES % (AUTO) 13 % (0-12); NEUTROPHILS # (AUTO) 8.9 X 10^3 (1.8-7.8); NEUTROPHILS % (AUTO) 73 % (42-75); PLATELET COUNT 326 10^3/uL (130-400); RED BLOOD COUNT 3.87 10^6/uL (4.35-5.85); RED CELL DISTRIBUTION WIDTH 15.3 % (10.0-14.5); WHITE BLOOD COUNT 12.2 10^3/uL (4.3-11.0)
[2016-11-01 05:33] LABS: ALANINE AMINOTRANSFERASE 54 U/L (0-55); ALBUMIN 3.1 GM/DL (3.2-4.5); ANION GAP 10 MMOL/L (5-14); ASPARTATE AMINO TRANSFERASE 22 U/L (5-34); BILIRUBIN,TOTAL 0.7 MG/DL (0.1-1.0); BLOOD UREA NITROGEN 17 MG/DL (7-18); BUN/CREATININE RATIO 26; CALCIUM 8.9 MG/DL (8.5-10.1); CARBON DIOXIDE 28 MMOL/L (21-32); CHLORIDE 103 MMOL/L (98-107); CREATININE SERUM 0.65 MG/DL (0.60-1.30); GFR ESTIMATED > 60; GLUCOSE 150 MG/DL (70-105); POTASSIUM 3.4 MMOL/L (3.6-5.0); SODIUM 141 MMOL/L (135-145)
[2016-11-01] MEDS: inSUlin (REGULAR) HUMAN 1 UNIT/0.01 ML (CHARGE PER UNIT) SC SCH ×3 (06:20→16:45)
[2016-11-01] MEDS: MULTIVIT W/MINERALS TAB (THERAGRAN M) PO SCH (06:20)
[2016-11-01] MEDS: ONDANSETRON 4 MG/2 ML (SDV) Z0FRAN IVP PRN (06:39)
[2016-11-01] MEDS: metFORMIN 500 MG (GLUCOPHAGE) TAB PO SCH ×2 (07:18→18:21)
[2016-11-01 07:33] VITALS: BP 162/98
--- NOTE | 2016-11-01 07:44 | Progress Note (SOAP) ---
Subjective Date Seen by Provider: Nov 01, 2016 Time Seen by Provider: 07:42 Subjective/Events-last exam Pain ok Hands/legs about the same, no big change Mild headache Objective Exam Vital Signs Date Time Temp Pulse Resp B/P (MAP) Pulse Ox O2 Delivery O2 Flow Rate FiO2 11/01/16 07:33 95.9 60 18 162/98 96 Room Air 11/01/16 04:02 99.3 84 20 131/76 97 Room Air 11/01/16 00:05 99.1 80 20 139/69 95 Room Air 10/31/16 20:25 98 Nasal Cannula 10/31/16 19:53 97.1 90 20 184/82 97 Room Air 10/31/16 15:45 96.7 89 20 161/84 95 Nasal Cannula 2.00 10/31/16 13:30 Nasal Cannula 2.00 10/31/16 13:05 98.8 100 18 149/93 97 Nasal Cannula 2.00 10/31/16 12:00 98 Nasal Cannula 2.00 10/31/16 12:00 105 11 147/91 99 Nasal Cannula 2.00 10/31/16 11:00 98 6 153/101 99 Nasal Cannula 2.00 10/31/16 10:00 105 14 168/109 99 Nasal Cannula 2.00 10/31/16 09:00 94 14 164/99 99 Nasal Cannula 2.00 10/31/16 08:00 96 15 164/103 100 Nasal Cannula 2.00 10/31/16 08:00 98 Nasal Cannula 2.00 I & O 11/01/16 07:00 Intake Total 1350 ml Output Total 2470 ml Balance -1120 ml Capillary Refill : General Appearance: No Apparent Distress Neck: Supple, Other (Incisions ok) Respiratory: No Accessory Muscle Use, No Respiratory Distress Cardiovascular: Regular Rate, Rhythm, Normal Peripheral Pulses Gastrointestinal: soft Extremity: No Calf Tenderness Neurologic/Psychiatric: Oriented x3, Motor Weakness, Sensory Deficit Other comments LIBERTAD output noted, fairly clear Results Lab Laboratory Tests 10/31/16 10:55: Glucometer 182H 10/31/16 15:48: Glucometer 205H 11/01/16 00:09: Glucometer 204H 11/01/16 05:05: White Blood Count 12.2H, Red Blood Count 3.87L, Hemoglobin 11.3L, Hematocrit 34L , Mean Corpuscular Volume 88, Mean Corpuscular Hemoglobin 29, Mean Corpuscular Hemoglobin Concent 33, Red Cell Distribution Width 15.3H, Platelet Count 326, Mean Platelet Volume 8.4, Neutrophils (%) (Auto) 73, Lymphocytes (%) (Auto) 13, Monocytes (%) (Auto) 13H, Eosinophils (%) (Auto) 1, Basophils (%) (Auto) 0, Neutrophils # (Auto) 8.9H, Lymphocytes # (Auto) 1.6, Monocytes # (Auto) 1.5H, Eosinophils # (Auto) 0.1, Basophils # (Auto) 0.0, Sodium Level 141, Potassium Level 3.4L, Chloride Level 103, Carbon Dioxide Level 28, Anion Gap 10, Blood Urea Nitrogen 17, Creatinine 0.65, Estimat Glomerular Filtration Rate > 60, BUN/ Creatinine Ratio 26, Glucose Level 150H, Calcium Level 8.9, Total Bilirubin 0.7 , Aspartate Amino Transf (AST/SGOT) 22, Alanine Aminotransferase (ALT/SGPT) 54, Alkaline Phosphatase 54, Total Protein 6.0L, Albumin 3.1L 11/01/16 06:26: Glucometer 149H Assessment/Plan Assessment/Plan Assess & Plan/Chief Complaint Cervical Stenosis Cervical Spondylosis with myelopathy/mylomalacia S/P Anterior/Posterior Cervical reconstruction Plan: Needs continued supportive care May need swallow study Will D/C LIBERTAD in light of potential for CSF leak. Clinical Quality Measures DVT/VTE Risk/Contraindication: Risk Factor Score Per Nursin RFS Level Per Nursing on Admit: 4+=Very High LEIA SANZ MD Nov 01, 2016 07:44
[2016-11-01] MEDS: BACLOFEN 10 MG (LIORESAL) TAB PO SCH ×3 (08:30→22:28)
[2016-11-01] MEDS: oxyCODONE/APAP 10/325MG (PERCOCET 10) TABLET PO PRN ×4 (08:30→22:28)
[2016-11-01] MEDS: HYDROCHLOROTHIAZIDE 25 MG (HCTZ) TAB PO SCH (08:30)
[2016-11-01] MEDS: SENNA W/DOCUSATE (SENOKOT S) TABLET PO SCH ×2 (08:30→20:00)
[2016-11-01] MEDS: VERAPAMIL 80 MG (ISOPTIN) TAB PO SCH ×2 (08:30→20:00)
[2016-11-01] MEDS: amLODIPine 5 MG (NORVASC) TAB PO SCH (08:30)
[2016-11-01] MEDS ORDERED: HYDROCHLOROTHIAZIDE 25 MG (HCTZ) TAB PO SCH (09:00)
[2016-11-01] MEDS ORDERED: VITAMIN B COMPLEX PO SCH (09:00)
--- NOTE | 2016-11-01 10:09 | Physical Therapy Daily Note ---
PT Daily Note-Current Subjective Pt in bed, very groggy. Coordinated with nursing to receive pain meds prior to therapy (~25'). Pt requires max encouragement to participate. No pain behaviors when PT entered room but c/o "high pain", no rating provided. Very demanding, requires firm direction to assist as able, requesting PT/nursing to "hold him up ". Appearance Groggy Mental Status Patient Orientation: Person, Place, Time, Situation Attachments: SCD's, Tobin Catheter, IV Transfers Functional [place] Measure 0=Not Assessed/NA 4=Minimal Assistance 1=Total Assistance 5=Supervision or Setup 2=Maximal Assistance 6=Modified [place] 3=Moderate Assistance 7=Complete IndependenceIRFPAI Quality Coding Scale 6 Independent with activity with or without an assistive device 5 Patient requires set up or clean up by helper. Patient completes activity by themselves 4 Supervision or touching assist (CGA). [place] provide cues , steadying assist 3 The helper provides less than half the effort to complete the activity 2 The helper provides more than half the effort to complete the activity 1 Dependent. The helper does all the effort to complete an activity 7 Patient refused to complete or attempt activity 9 The patient did not perform the activity before the current illness or injury 88 Not attempted due to Medical conditions or safety concerns Scootin Rollin Supine to/from Sit: 1 Rolling (L) and (R) with max A x 1-2 for linen change Max A x 2-3 for up in bed Max A x 3 supine<->sit with log-rolling. Treatments Bed mobility, supine<->sit TFR training. Pt sat EOB x 10' with Max A initially due to leaning heavily to (R) with improvement to SBA with max skilled VCS. Returned to bed with all needs met, SCDs in place. Assessment Current Status: Fair Progress Pt tolerated well despite max c/o. Pt self limits due to pain, requires firm direction to attempt to assist PT/nursing to move extremities. Pt continues to demonstrate AROM at all joints in LE. PT Short Term Goals Short Term Goals Time Frame: Nov 14, 2016 Transfers (B,C,W/C) (FIM): 2 (Sit<->stand lift) PT Cell Efficiency Supervisor Goals Cell Efficiency Supervisor Goals PT Nursing Home Goals Time Frame: Dec 12, 2016 Transfers (B,C,W/C) (FIM): 4 Gait (FIM): 2 Gait distance (FIM): 1=up to 49 ft Distance: 50 Gait Level of Assist: 4 Gait Assistive Device: FWW Wheelchair (FIM): 6 Wheelchair distance (FIM): 3=150 ft Distance: 150 Stairs (FIM): 2 # of Steps: 4 Stairs Level Of Assist: 3 PT Plan Problem List Problem List: Activity Tolerance, Functional Strength, Safety, Balance, Gait, Transfer, Bed Mobility, ROM Treatment/Plan Treatment Plan: Continue Plan of Care Treatment Plan: Bed Mobility, Education, Functional Activity Fady, Functional Strength, Gait, Safety, Therapeutic Exercise, Transfers Treatment Duration: Dec 12, 2016 Visits Per Week: 10-11 Pt/Family Agrees w/Plan: Yes Safety Risks/Education Patient Education: Reviewed Precautions, Correct Positioning Teaching Recipient: Patient Teaching Methods: Discussion Response to Teaching: Reinforcement Needed PT POC, importance of increasing activity as tolerated, cervical precautions Discharge Recommendations Plan Continue to assess Barriers to Progress pain, Pt motivation Time/GCodes Time In: 917 Time Out: 09 Total Billed Treatment Time: 30 Total Billed Treatment 1, FA x 30' G Codes Necessary: HUGO Knox DPT Nov 01, 2016 10:09
[2016-11-01] MEDS: LACTULOSE SYRUP 10GM/15ML (ENULOSE) 30ML UDC PO SCH ×2 (11:00→20:01)
[2016-11-01] MEDS: POLYETHYLENE GLYCOL 17 GM (MIRALAX) PACK PO SCH ×2 (11:01→20:01)
--- NOTE | 2016-11-01 11:36 | Progress Note-Hospitalist ---
Progress Note HPI/CC on Admission CC: s/p cervical spine surgery due to spinal cord compression HPI: This is a 61-year-old white male patient of Dr. Falcon's that I have been taking care of since he had surgery in [facility] 2 and half weeks ago due to cervical spine cord compression had his first stage of surgery done there with good results then transferred over to rehabilitation via [facility] for rehabilitation that now required an urgent second phase surgery by Dr. Atkinson due to continued spinal cord compression that was uncomplicated last night. He is doing well except for mild dysphagia we are presuming an aspiration risk so we are just holding off on anything but ice chips and evaluating with a speech therapy consult. I have reconciled all of his home medicine and restarted all of his blood pressure medicine and insulin regimen. He is telling me about how bad his pain is of which Dilaudid and Percocet are ordered with good response. The intention is to return to rehabilitation unit next week. Progress Notes/Assess & Plan Date Seen 11/01/16 Time Seen by Provider: 11:00 Admission Dx/Process Assessment: status post cervical spine surgery stage II of 2 stage surgery for spinal cord compression POD # 1 Dysphagia due to edema from neck surgery NPO for now except ice ships and PO meds Diabetes mellitus Obstructive sleep apnea compliant with treatment Hypertension Hyperlipidemia Status post narcotic bowel requiring soapsuds enema for disimpaction 2 and half weeks ago maintained on regimen Diagonsis/Assessment & Plan Patient's sleeping soundly currently without distress Still on Dilaudid and Dr. Atkinson informed him we would need to start weaning down and go back to the hydrocodone Narcotic bowel regimen maintained Blood pressure doing much better on by mouth meds Dysphagia appears to be much better advanced to clear liquids but still needs a formal swallow eval No fever, vital signs stable, pleasant, chronically ill, snoring Regular rate and rhythm, clear to auscultation bilaterally No edema Laboratory Tests 11/01/16 05:05 Assessment: s/p cervical spine surgery stage II of 2 stage surgery for spinal cord compression POD # 2 Dysphagia due to edema from neck surgery but tolerating ice chips and water and PO meds so advancing to [facility]D but still needs formal swallow evaluation Diabetes mellitus labile due to restricted PO intake Obstructive sleep apnea compliant with treatment Hypertension Hyperlipidemia Status post narcotic bowel requiring soapsuds enema for disimpaction 2 and half weeks ago maintained on aggressive regimen currently Leukocytosis Hypokalemia Plan: Speech therapy evaluation and nothing by mouth except for ice chips and meds until then since may be an aspiration risk Pain medication Monitor labs SCDs Bowel regimen Monitor closely Gentle IVF Replace potassium KEANU LI DO Nov 01, 2016 11:36
[2016-11-01 12:00] VITALS: BP 160/89
[2016-11-01] MEDS: POTASSIUM CL 10MEQ/50ML IVPB 50 ML IV SCH ×4 (12:12→15:28)
[2016-11-01 16:00] VITALS: BP 159/79
[2016-11-01 20:00] VITALS: BP 147/84
[2016-11-01] MEDS: IRBESARTAN 150 MG (AVAPRO) TAB PO SCH (20:01)
[2016-11-01] MEDS ORDERED: IRBESARTAN 300 MG PO SCH (21:00)
[2016-11-02] VITALS (7 sets, daily range): BP systolic 114–171; BP diastolic 64–89
[2016-11-02] MEDS: inSUlin ASPART (NovoLOG) 1 UNIT/0.01 ML (CHARGE PER UNIT) SC SCH ×5 (00:16→23:58)
[2016-11-02] MEDS: oxyCODONE/APAP 10/325MG (PERCOCET 10) TABLET PO PRN ×3 (04:36→17:18)
[2016-11-02 05:19] LABS: BASOPHILS % (AUTO) 0 % (0-10); EOSINOPHILS # (AUTO) 0.4 10^3/uL (0.0-0.3); EOSINOPHILS % (AUTO) 4 % (0-10); LYMPHOCYTES # (AUTO) 1.4 X 10^3 (1.0-4.0); LYMPHOCYTES % (AUTO) 16 % (12-44); MEAN CORPUSCULAR HEMOGLOBIN 29 PG (25-34); MEAN CORPUSCULAR HGB CONC 33 G/DL (32-36); MEAN CORPUSCULAR VOLUME 90 FL (80-99); MEAN PLATELET VOLUME 8.9 FL (7.4-10.4); MONOCYTES # (AUTO) 1.1 X 10^3 (0.0-1.0); MONOCYTES % (AUTO) 12 % (0-12); NEUTROPHILS # (AUTO) 6.2 X 10^3 (1.8-7.8); NEUTROPHILS % (AUTO) 68 % (42-75); PLATELET COUNT 309 10^3/uL (130-400); RED BLOOD COUNT 3.74 10^6/uL (4.35-5.85); RED CELL DISTRIBUTION WIDTH 15.2 % (10.0-14.5); WHITE BLOOD COUNT 9.1 10^3/uL (4.3-11.0)
[2016-11-02 05:45] LABS: ALANINE AMINOTRANSFERASE 43 U/L (0-55); ALBUMIN 3.1 GM/DL (3.2-4.5); ANION GAP 11 MMOL/L (5-14); ASPARTATE AMINO TRANSFERASE 20 U/L (5-34); BILIRUBIN,TOTAL 0.6 MG/DL (0.1-1.0); BLOOD UREA NITROGEN 11 MG/DL (7-18); BUN/CREATININE RATIO 17; CALCIUM 8.8 MG/DL (8.5-10.1); CARBON DIOXIDE 27 MMOL/L (21-32); CHLORIDE 105 MMOL/L (98-107); CREATININE SERUM 0.65 MG/DL (0.60-1.30); GFR ESTIMATED > 60; GLUCOSE 139 MG/DL (70-105); POTASSIUM 3.5 MMOL/L (3.6-5.0); SODIUM 143 MMOL/L (135-145); TOTAL PROTEIN 5.8 GM/DL (6.4-8.2)
[2016-11-02] MEDS: inSUlin (REGULAR) HUMAN 1 UNIT/0.01 ML (CHARGE PER UNIT) SC SCH ×3 (06:09→16:33)
[2016-11-02] MEDS: MULTIVIT W/MINERALS TAB (THERAGRAN M) PO SCH (06:16)
[2016-11-02] MEDS: BACLOFEN 10 MG (LIORESAL) TAB PO SCH ×3 (06:17→21:24)
[2016-11-02] MEDS: metFORMIN 500 MG (GLUCOPHAGE) TAB PO SCH ×2 (06:17→17:18)
--- NOTE | 2016-11-02 09:53 | Physical Therapy Daily Note ---
PT Daily Note-Current Subjective Patient rates bilateral hip pain 6/10. Pain Numeric Pain Scale: 6 Location: Right, Left Location Body Site: Hip Pain Description: Ache, Pressure Comment: with meds issued Mental Status Patient Orientation: Normal For Age Attachments: Tobin Catheter, IV Transfers Functional [place] Measure 0=Not Assessed/NA 4=Minimal Assistance 1=Total Assistance 5=Supervision or Setup 2=Maximal Assistance 6=Modified [place] 3=Moderate Assistance 7=Complete IndependenceIRFPAI Quality Coding Scale 6 Independent with activity with or without an assistive device 5 Patient requires set up or clean up by helper. Patient completes activity by themselves 4 Supervision or touching assist (CGA). [place] provide cues , steadying assist 3 The helper provides less than half the effort to complete the activity 2 The helper provides more than half the effort to complete the activity 1 Dependent. The helper does all the effort to complete an activity 7 Patient refused to complete or attempt activity 9 The patient did not perform the activity before the current illness or injury 88 Not attempted due to Medical conditions or safety concerns Transfers (B, C, W/C) (FIM): 1 Scootin Rollin Supine to/from Sit: 2 Sit to/from Stand: 1 Bed to/from Chair: 1 sit to stand life utilized with transfers bed to recliner Exercises Supine Ex: Ankle pumps, Quad Set, Heel Slides, Straight leg raise Supine Reps: 10 (AAROM bilaterally x 2 sets) Assessment Patient is very reluctant to be OOB due to anticipation of pain. Cervical collar in place with mobility. Patient tolerated treatment and is up in recliner with needs met. Progressing with bilateral LE exercises to improve functional mobility and facility ability to perform increase in activity. PT Short Term Goals Short Term Goals Time Frame: Nov 14, 2016 Transfers (B,C,W/C) (FIM): 2 (Sit<->stand lift) PT Long-Term Goals Ge[employer] Field Assistant Goals PT Long-Term Goals Time Frame: Dec 12, 2016 Transfers (B,C,W/C) (FIM): 4 Gait (FIM): 2 Gait distance (FIM): 1=up to 49 ft Distance: 50 Gait Level of Assist: 4 Gait Assistive Device: FWW Wheelchair (FIM): 6 Wheelchair distance (FIM): 3=150 ft Distance: 150 Stairs (FIM): 2 # of Steps: 4 Stairs Level Of Assist: 3 PT Plan Treatment/Plan Treatment Plan: Continue Plan of Care Treatment Plan: Bed Mobility, Education, Functional Activity Fady, Functional Strength, Gait, Safety, Therapeutic Exercise, Transfers Treatment Duration: Dec 12, 2016 Visits Per Week: 10-11 Time/GCodes Time In: 855 Time Out: 925 Total Billed Treatment Time: 30 Total Billed Treatment 1 visit EX 20 min FA 10 min ALANNA OLIVER PT Nov 02, 2016 09:53
[2016-11-02] MEDS: LACTULOSE SYRUP 10GM/15ML (ENULOSE) 30ML UDC PO SCH ×2 (09:57→21:26)
[2016-11-02] MEDS: amLODIPine 5 MG (NORVASC) TAB PO SCH (09:57)
[2016-11-02] MEDS: SENNA W/DOCUSATE (SENOKOT S) TABLET PO SCH ×2 (09:57→21:24)
[2016-11-02] MEDS: POLYETHYLENE GLYCOL 17 GM (MIRALAX) PACK PO SCH ×2 (09:58→21:24)
[2016-11-02] MEDS: HYDROCHLOROTHIAZIDE 25 MG (HCTZ) TAB PO SCH (10:04)
[2016-11-02] MEDS: VERAPAMIL 80 MG (ISOPTIN) TAB PO SCH ×2 (10:04→21:25)
--- NOTE | 2016-11-02 10:51 | Speech Therapy Progress Note ---
Therapy Progress Note Dysphagia consultation received and chart extensively reviewed. The clinician attempted to complete the swallowing evaluation at 10:46. The patient adamantly refused, stating the clinician "can do it the next go-round." Per patient, "I' ve been jostled all around this morning. I just got put to bed, I'm not getting back up for awhile." The clinician explained the patient would not need to be placed in a chair, he could be repositioned upright in bed for the assessment. The patient continuously refused. The information was shared with the patient's RN. The clinician will re-attempt swallowing evaluation, as able. APRIL ORTEZ Nov 02, 2016 10:51
--- NOTE | 2016-11-02 13:36 | Occupational Ther Daily Note ---
OT Current Status-Daily Note Subjective Pt seen in room, up in bed, agreeable to OT. Pain not rated Appearance Alert, cooperative Mental Status/Objective Functional [place] Measure 0=Not Assessed/NA 4=Minimal Assistance 1=Total Assistance 5=Supervision or Setup 2=Maximal Assistance 6=Modified [place] 3=Moderate Assistance 7=Complete [place] Other Treatment Pt is on clear liquid diet so has not been able to feed himself (gelatin will not stay on a spoon). Worked with skilled facilitation techniques to strengthen UE muscle groups. Gentle retrograde massage to R hand to help decrease edema ( it has done down since IV taken out). After facilitation, pt was able to touch palm with little, ring and middle fingers and get index to within a half inch of palm. Has active thumb flex and ext. Pt demonstrated R wrist extension against gravity, almost full range (3-/5), elbow flex 2+/5 (can almost hold position at midpoint). Also worked on elbow extension and flex with gravity eliminated. Pt reported discomfort in R shoulder with passive flexion. On L able to make a fist, wrist flex and ext, elbow flex 3+/5. Pt is able to left L hand to touch face and shoulder be able to help feed himself once his diet is upgraded. Pt seemed pleased with progress. Pt left up in bed, all needs met. Education OT Patient Education: Exercise program Teaching Recipient: Patient Teaching Methods: Demonstration Response to Teaching: Return Demonstration, Reinforcement Needed OT Short Term Goals Short Term Goals Transfers (B,C,W/C) (FIM): 2 (Sit<->stand lift) 1=Demonstrate adherence to instructed precautions during ADL tasks. 2=Patient will verbalize/demonstrate understanding of assistive devices/ modifications for ADL. 3=Patient will improve strength/tolerance for activity to enable patient to perform ADL's. OT Tobacco Baler Goals Care Home Goals Time Frame: Nov 06, 2016 Eating (FIM): 3 Grooming(FIM): 3 Bathing(FIM): 2 Upper Body Dressing(FIM): 2 Lower Body Dressing(FIM): 1 Additional Goals: 2-Verbalize Understanding, 3-ImproveStrength/Fady 1=Demonstrate adherence to instructed precautions during ADL tasks. 2=Patient will verbalize/demonstrate understanding of assistive devices/ modifications for ADL. 3=Patient will improve strength/tolerance for activity to enable patient to perform ADL's. OT Education/Plan Problem List/Assessment Pt would benefit from skilled OT to increase his independence in basic self care to allow him to return to his home safely and to decrease caregiver burden Discharge Recommendations Plan/Recommendations: Continue POC Treatment Plan/Plan of Care Patient would benefit from OT for education, treatment and training to promote independence in ADL's, mobility, safety and/or upper extremity function for ADL' s. Plan of Care: ADL Retraining, Functional Mobility, UE Funct Exercise/Act, UE Neuromus Re-Ed/Coord Treatment Duration: Nov 06, 2016 Visits Per Week: 5 Agreement: Yes Rehab Potential: Guarded (Pt showed improved neurological status after 1st surgery with subsequent decline. ) Time/GCodes Start Time: 12:55 Stop Time: 13:20 Total Time Billed (hr/min): 25 Billed Treatment Time visit, 25 minutes neuromotor THAI HOOVER OT Nov 02, 2016 13:36
--- NOTE | 2016-11-02 13:51 | Progress Note (SOAP) ---
Subjective Date Seen by Provider: Nov 02, 2016 Time Seen by Provider: 12:00 Subjective/Events-last exam No significant changes. Hands and legs still about the same. Patient has multiple complaints today. Nursing staff reports extremely poor effort even with simple tasks. Poor effort with physical therapy. Objective Exam Vital Signs Date Time Temp Pulse Resp B/P (MAP) Pulse Ox O2 Delivery O2 Flow Rate FiO2 11/02/16 12:00 96.6 80 20 171/86 95 11/02/16 08:00 97.1 76 20 156/86 97 11/02/16 08:00 97 Room Air 2.00 11/02/16 04:00 97.5 78 20 151/89 97 Room Air 11/02/16 00:00 97.1 77 22 144/82 96 Room Air 11/01/16 20:30 Room Air 11/01/16 20:00 98.2 86 20 147/84 95 Room Air 11/01/16 16:00 97.1 84 18 159/79 95 Room Air I & O 11/02/16 07:00 Intake Total 1510 ml Output Total 3320 ml Balance -1810 ml Capillary Refill : General Appearance: No Apparent Distress Neck: Supple (dressings CDI) Respiratory: No Accessory Muscle Use Cardiovascular: Regular Rate, Rhythm, No Edema, Normal Peripheral Pulses Gastrointestinal: non tender, soft Extremity: Normal Capillary Refill, Non Tender, No Calf Tenderness Neurologic/Psychiatric: Alert, Oriented x3, Normal Mood/Affect, Motor Weakness , Sensory Deficit Skin: Normal Color, Warm/Dry Lymphatic: No Adenopathy Results Lab Laboratory Tests 11/01/16 17:47: Glucometer 151H 11/02/16 00:10: Glucometer 148H 11/02/16 04:50: White Blood Count 9.1, Red Blood Count 3.74L, Hemoglobin 11.0L, Hematocrit 34L, Mean Corpuscular Volume 90, Mean Corpuscular Hemoglobin 29, Mean Corpuscular Hemoglobin Concent 33, Red Cell Distribution Width 15.2H, Platelet Count 309, Mean Platelet Volume 8.9, Neutrophils (%) (Auto) 68, Lymphocytes (%) (Auto) 16, Monocytes (%) (Auto) 12, Eosinophils (%) (Auto) 4, Basophils (%) (Auto) 0, Neutrophils # (Auto) 6.2, Lymphocytes # (Auto) 1.4, Monocytes # (Auto) 1.1H, Eosinophils # (Auto) 0.4H, Basophils # (Auto) 0.0, Sodium Level 143, Potassium Level 3.5L, Chloride Level 105, Carbon Dioxide Level 27, Anion Gap 11, Blood Urea Nitrogen 11, Creatinine 0.65, Estimat Glomerular Filtration Rate > 60, BUN/ Creatinine Ratio 17, Glucose Level 139H, Calcium Level 8.8, Total Bilirubin 0.6 , Aspartate Amino Transf (AST/SGOT) 20, Alanine Aminotransferase (ALT/SGPT) 43, Alkaline Phosphatase 52, Total Protein 5.8L, Albumin 3.1L 11/02/16 11:53: Glucometer 160H Microbiology 10/30/16 MRSA Screen - Final, Complete MRSA not isolated Assessment/Plan Assessment/Plan Assess & Plan/Chief Complaint A: Cervical Stenosis Cervical Spondylosis with myelopathy/mylomalacia S/P Anterior/Posterior Cervical reconstruction P: Continue with eval for rehab placement. Continue other current treatment. If he is not a candidate for rehab, he may need skilled or usp placement. Clinical Quality Measures DVT/VTE Risk/Contraindication: Risk Factor Score Per Nursin RFS Level Per Nursing on Admit: 4+=Very High LORETA JARQUIN APRN Nov 02, 2016 1:51 pm
--- NOTE | 2016-11-02 14:11 | Physical Therapy Daily Note ---
PT Daily Note-Current Subjective Patient just complete with OT and agrees to PT. Pain Numeric Pain Scale: 8 Location: Right Location Body Site: Shoulder Pain Description: Ache Mental Status Patient Orientation: Normal For Age Transfers Functional [place] Measure 0=Not Assessed/NA 4=Minimal Assistance 1=Total Assistance 5=Supervision or Setup 2=Maximal Assistance 6=Modified [place] 3=Moderate Assistance 7=Complete IndependenceIRFPAI Quality Coding Scale 6 Independent with activity with or without an assistive device 5 Patient requires set up or clean up by helper. Patient completes activity by themselves 4 Supervision or touching assist (CGA). [place] provide cues , steadying assist 3 The helper provides less than half the effort to complete the activity 2 The helper provides more than half the effort to complete the activity 1 Dependent. The helper does all the effort to complete an activity 7 Patient refused to complete or attempt activity 9 The patient did not perform the activity before the current illness or injury 88 Not attempted due to Medical conditions or safety concerns Transfers (B, C, W/C) (FIM): 1 Scootin Rollin Supine to/from Sit: 2 Sit to/from Stand: 1 Bed to/from Chair: 1 sit to stand lift utilized for transfers due to weakness Education with patient on importance of attempting to activate core musculature and LE musculature to assist with bed mobility and transfers. Patient will state he cannot do it before trying. Patient demonstrated ability to rotate trunk and pull forward with trunk flexion Exercises Seated Therapy Exercises: Ankle pumps, Long arc quads, Hip flexion, Reaching activity (with trunk rotation exercises) Assessment Exercises performed to improve core stabilization and increase strength to improve mobility. Patient encouraged to perform these activities through the day to improve current LOF. PT Short Term Goals Short Term Goals Time Frame: Nov 14, 2016 Transfers (B,C,W/C) (FIM): 2 (Sit<->stand lift) PT Neck Skewer Goals Neck Skewer Goals PT Halfway Goals Time Frame: Dec 12, 2016 Transfers (B,C,W/C) (FIM): 4 Gait (FIM): 2 Gait distance (FIM): 1=up to 49 ft Distance: 50 Gait Level of Assist: 4 Gait Assistive Device: FWW Wheelchair (FIM): 6 Wheelchair distance (FIM): 3=150 ft Distance: 150 Stairs (FIM): 2 # of Steps: 4 Stairs Level Of Assist: 3 PT Plan Treatment/Plan Treatment Plan: Continue Plan of Care Treatment Plan: Bed Mobility, Education, Functional Activity Fady, Functional Strength, Gait, Safety, Therapeutic Exercise, Transfers Treatment Duration: Dec 12, 2016 Visits Per Week: 10-11 Time/GCodes Time In: 1320 Time Out: 1350 Total Billed Treatment Time: 30 Total Billed Treatment 1 visit EX 20 min FA 10 min ALANNA OLIVER PT Nov 02, 2016 14:10
--- NOTE | 2016-11-02 14:38 | ST Dysphagia Evaluation ---
Speech Evaluation-General Medical Diagnosis Cervical Surgery Onset Date: Oct 30, 2016 Therapy Diagnosis Therapy Diagnosis: Mild Pharyngeal Dysphagia Precautions Precautions/Isolations: Fall Prevention, Standard Precautions Referral Referring Physician: Dr. Linda Duvall Reason for Referral: Evaluation/Treatment Clinical Bedside Swallowing Evaluation Medical History Pertinent Medical History: Arthritis, DM, HTN, Neuropathy, OA Reviewed History: Yes Social History Current Living Status: Significant Other Speech PLF/Current-Dysphagia Prior Level of Function The patient stated he had "some" swallowing difficulties following his prior surgery, however, does not believe he has experienced any challenges following his most recent cervical procedure. Per RN, the patient intermittently coughs following the swallow with thin liquids. Subjective The patient was recently admitted to [facility] following a repeat cervical spine procedure. The patient was seated upright in the chair upon entrance. The patient greeted the clinician and was agreeable to participation in the swallowing evaluation. CXR: 10/31/16: Lungs are well aerated and clear. Cognitive Status Patient Orientation: Person, Place, Time, Situation Oral Motor Skills Dentition: Natural Current Food Consistancy: Clear Liquids Ability to Follow Directions: Good Oral Expression Ability: No Impairment The patient currently has a C-Collar in place. Voice Voice Phonatory-Based Quality: Normal Voice Pitch: Normal Voice Loudness: Normal Face Facial Symmetry: Symmetrical Oral-Facial Assessment Oral-Facial Dentition: Normal Labial Seal Description: Normal Smile: Normal Puff Cheeks: Normal Lingual Protrusion: Normal Lingual ROM: Normal Lingual Strength: Normal Pharynx Velopharyngeal Move.: Normal Volitional Dry Swallow: Yes Dysphagia Evaluation Consistencies Presented: Thin Liquid, Pureed The patient deferred trials of solid consistencies. - No oral impairments were noted throughout the evaluation. - Limited laryngeal elevation was noted with all consistencies tested during the evaluation. A piecemeal swallow was visualized with puree consistencies, as the patient demonstrated two swallows per bolus. Funct. Velo/Pharyngeal Symptom: Clears Throat - Thin Liquid (via straw sip): The patient demonstrated a consistent delayed throat clear following bolus trials of thin liquid via straw sip. - Thin Liquid (via cup sip and teaspoon sip): No signs/symptoms of aspiration were demonstrated with multiple boluses of thin liquid via teaspoon and cup sip. The patient's vocal quality remained clear. - Puree: No signs/symptoms of aspiration were demonstrated with bolus trials of puree. * The patient deferred trials of solid consistencies stating this consistency tends to "stick" in his throat. Dietary Recommendations: Mechanical Soft Liquid Recommendations: Thin (No Straws.) Swallowing Precautions: Decreased Bolus 1/2 Tsp, Liquids from Cup, No Straw, Small Bites and Sips, Sitting 90 Degrees 30 Post Intake Dysphagia Evaluation Summary Mild pharyngeal dysphagia characterized by decreased laryngeal elevation. Speech-Plan Treatment Plan Speech Therapy Treatment Plan: Discontinue ST Evaluation, only. Rehab Potential: Guarded (Pt showed improved neurological status after 1st surgery with subsequent decline. ) Safety Risks/Education Teaching Recipient: Patient Teaching Methods: Discussion Response to Teaching: Verbalize Understanding Education Topics Provided: Results, Recommendations, Plan of Care, Signs/Symptoms of Aspiration Time Speech Therapy Time In: 14:20 Speech Therapy Time Out: 14:40 Total Billed Time: 20 Billed Treatment Time 1[address] ST Nov 02, 2016 14:38
--- NOTE | 2016-11-02 14:48 | Progress Note-Hospitalist ---
Standard Progress Note Progress Notes/Assess & Plan Date Seen 11/02/16 Time Seen by Provider: 14:48 Diagnosis Assessment: status post cervical spine surgery stage II of 2 stage surgery for spinal cord compression POD # 1 Dysphagia due to edema from neck surgery NPO for now except ice ships and PO meds Diabetes mellitus Obstructive sleep apnea compliant with treatment Hypertension Hyperlipidemia Status post narcotic bowel requiring soapsuds enema for disimpaction 2 and half weeks ago maintained on regimen Assess & Plan/Chief Complaint The patient is a 61-year-old white male who underwent stage II cervical spine surgery for cord depression on Monday 10/30. He reports he is recognizing improvement in function although he remains weak. In particular the right hand seems weaker than the left. He also has the added problem of a diabetic foot ulcer that he is been treating for approximately one year and is nearly healed. This has limited his ability to exercise and walk through that period of time. He has been reevaluated for the inpatient rehabilitation facility. His insurance company has authorized this and he will be transferred there in the morning. Physical exam: The patient is sitting up in a hard neck brace. His right hand appears somewhat puffy. This appears to be as a function of an IV in that arm. 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 It would be evaluated at one plus on the left. There is no edema in the left hand. Lungs are clear to auscultation. CV is regular without murmur. Impression: Day 3 postop second phase cervical spine procedure. 2.upper extremity weakness secondary to cord pressure Labs Laboratory Tests 11/01/16 05:05 11/02/16 04:50 THALIA DAY MD Nov 02, 2016 14:48
[2016-11-02] MEDS: IRBESARTAN 150 MG (AVAPRO) TAB PO SCH (21:24)
[2016-11-02] MEDS: DIAZEPAM INJ 10 MG/2 ML (VALIUM) SYR IV PRN (21:25)
[2016-11-03] MEDS: oxyCODONE/APAP 10/325MG (PERCOCET 10) TABLET PO PRN ×3 (02:15→09:59)
--- OUTSIDE RECORDS SUMMARY | 2016-11-03 04:07 | XMS REPORT | Continuity of Care Document ---
Author Author [facility] Organization [facility] Address Unknown Phone Unavailable Allergies Active Description Code Type Severity Reaction Onset Reported/Identified Relationship to Patient Clinical Status Yes No Known Drug Allergies [id number] Drug Allergy Unknown N/ A 03/18/2009 Medications [...] HEEL AND MIDF 08/04/2016 DELGADO ADOLFO R PRESS BOX CUSTODIAN Ot E11.621 TYPE 2 DIABETES MELLITUS WITH FOOT ULCER 08/04/2016 DELGADO ADOLFO R PRESS BOX CUSTODIAN Ot L97.412 NON-PRS CHR ULCER OF RIGHT HEEL AND MIDF 08/04/2016 DELGADO ADOLFO R PRESS BOX CUSTODIAN Ot E11.621 TYPE 2 DIABETES MELLITUS WITH FOOT ULCER 08/04/2016 DELGADO ADOLFO R PRESS BOX CUSTODIAN Ot L97.412 NON-PRS CHR ULCER OF RIGHT HEEL AND MIDF 08/05/2016 DELGADO ADOLFO R PRESS BOX CUSTODIAN Ot E11.621 TYPE 2 DIABETES MELLITUS WITH FOOT ULCER 08/05/2016 DELGADO ADOLFO R PRESS BOX CUSTODIAN Ot L97.412 NON-PRS CHR ULCER OF RIGHT HEEL AND MIDF 08/05/2016 ADOLFO NATARAJAN R PRESS BOX CUSTODIAN Ot E11.621 TYPE 2 DIABETES MELLITUS WITH FOOT ULCER 08/05/2016 DELGADO ADOLFO R PRESS BOX CUSTODIAN Ot L97.412 NON-PRS CHR ULCER OF RIGHT HEEL AND MIDF 08/12/2016 ADOLFO NATARAJAN R PRESS BOX CUSTODIAN Ot E11.621 TYPE 2 DIABETES MELLITUS WITH FOOT ULCER 08/12/2016 DELGADO ADOLFO R PRESS BOX CUSTODIAN Ot L97.412 NON-PRS CHR ULCER OF RIGHT HEEL AND MIDF 08/13/2016 DELGADO ADOLFO R PRESS BOX CUSTODIAN Ot E11.621 TYPE 2 DIABETES MELLITUS WITH FOOT ULCER 08/13/2016 DELGADO ADOLFO R PRESS BOX CUSTODIAN Ot L97.412 NON-PRS CHR ULCER OF RIGHT HEEL AND MIDF 08/13/2016 DELGADO ADOLFO R PRESS BOX CUSTODIAN Ot E11.621 TYPE 2 DIABETES MELLITUS WITH FOOT ULCER 08/13/2016 DELGADO ADOLFO R PRESS BOX CUSTODIAN Ot L97.412 NON-PRS CHR ULCER OF RIGHT HEEL AND MIDF 08/13/2016 DELGADO ADOLFO R PRESS BOX CUSTODIAN Ot E11.621 TYPE 2 DIABETES MELLITUS WITH FOOT ULCER 08/13/2016 DELGADO ADOLFO R PRESS BOX CUSTODIAN Ot L97.412 NON-PRS CHR ULCER OF RIGHT HEEL AND MIDF 08/14/2016 DELGADO ADOLFO R PRESS BOX CUSTODIAN Ot E11.621 TYPE 2 DIABETES MELLITUS WITH FOOT ULCER 08/14/2016 DELGADO ADOLFO R PRESS BOX CUSTODIAN Ot L97.412 NON-PRS CHR ULCER OF RIGHT HEEL AND MIDF 09/15/2016 ADOLFO NATARAJAN R PRESS BOX CUSTODIAN Ot E11.621 TYPE 2 DIABETES MELLITUS WITH FOOT ULCER 09/15/2016 DELGADO ADOLFO Mercado PRESS BOX CUSTODIAN Ot L97.412 NON-PRS CHR ULCER OF RIGHT HEEL AND MIDF 09/15/2016 POLLY NATARAJANRobbi Mercado PRESS BOX CUSTODIAN Ot E11.621 TYPE 2 DIABETES MELLITUS WITH FOOT ULCER 09/15/2016 POLLY NATARAJANRobbi Mercado PRESS BOX CUSTODIAN Ot L97.412 NON-PRS CHR ULCER OF RIGHT HEEL AND MIDF 09/28/2016 POLLY NATARAJANRobbi Mercado PRESS BOX CUSTODIAN Ot E11.621 TYPE 2 DIABETES MELLITUS WITH FOOT ULCER 09/28/2016 DELGADO ADOLFO Mercado PRESS BOX CUSTODIAN Ot L97.412 NON-PRS CHR ULCER OF RIGHT HEEL AND MIDF 09/30/2016 POLLY NATARAJANRobbi Mercado PRESS BOX CUSTODIAN Ot E11.621 TYPE 2 DIABETES MELLITUS WITH FOOT ULCER 09/30/2016 DELGADO ADOLFO Mercado PRESS BOX CUSTODIAN Ot L97.412 NON-PRS CHR ULCER OF RIGHT HEEL AND MIDF 10/12/2016 Ot E11.621 TYPE 2 DIABETES MELLITUS WITH FOOT ULCER 10/12/2016 Ot L97.419 NON-PRS CHR ULCER OF RIGHT HEEL AND MIDF 10/12/2016 Ot M48.02 SPINAL STENOSIS, CERVICAL REGION 10/12/2016 Ot R53.1 WEAKNESS 10/12/2016 Ot Z79.4 COLLISION ESTIMATOR (CURRENT) USE OF INSULIN 10/14/2016 Ot E11.621 TYPE 2 DIABETES MELLITUS WITH FOOT ULCER 10/14/2016 Ot L97.419 NON-PRS CHR ULCER OF RIGHT HEEL AND MIDF 10/14/2016 Ot M48.02 SPINAL STENOSIS, CERVICAL REGION 10/14/2016 Ot R53.1 WEAKNESS 10/14/2016 Ot Z79.4 COLLISION ESTIMATOR (CURRENT) USE OF INSULIN 10/18/2016 Ot E11.621 TYPE 2 DIABETES MELLITUS WITH FOOT ULCER 10/18/2016 Ot L97.419 NON-PRS CHR ULCER OF RIGHT HEEL AND MIDF 10/18/2016 Ot M48.02 SPINAL STENOSIS, CERVICAL REGION 10/18/2016 Ot R53.1 WEAKNESS 10/18/2016 Ot Z79.4 FPC (CURRENT) USE OF INSULIN 10/21/2016 BRAD HAGER, JOSEY Celestin Ot E11.9 TYPE 2 DIABETES MELLITUS WITHOUT COMPLIC 10/21/2016 JOSEY SALINAS MD Ot F32.9 MAJOR DEPRESSIVE DISORDER, SINGLE EPISOD 10/21/2016 JOSEY SALINAS MD Ot G47.33 OBSTRUCTIVE SLEEP APNEA (ADULT) (PEDIATR 10/21/2016 JOSEY SALINAS MD E Ot G56.93 UNSPECIFIED MONONEUROPATHY OF BILATERAL 10/21/2016 JOSEY SALINAS MD E Ot G57.93 UNSPECIFIED MONONEUROPATHY OF BILATERAL 10/21/2016 JOSEY SALINAS MD E Ot I10 ESSENTIAL (PRIMARY) HYPERTENSION 10/21/2016 JOSEY SALINAS MD E Ot M19.90 UNSPECIFIED OSTEOARTHRITIS, UNSPECIFIED 10/21/2016 JOSEY SALINAS MD E Ot R53.1 WEAKNESS 10/21/2016 JOSEY SALINAS MD E Ot Z48.89 ENCOUNTER FOR OTHER SPECIFIED SURGICAL A 10/21/2016 JOSEY SALINAS MD E Ot Z79.4 COLLISION ESTIMATOR (CURRENT) USE OF INSULIN 10/23/2016 JOSEY SALINAS MD E Ot E11.9 TYPE 2 DIABETES MELLITUS WITHOUT COMPLIC 10/23/2016 JOSEY SALINAS MD E Ot F32.9 MAJOR DEPRESSIVE DISORDER, SINGLE EPISOD 10/23/2016 JOSEY SALINAS MD E Ot G47.33 OBSTRUCTIVE SLEEP APNEA (ADULT) (PEDIATR 10/23/2016 JOSEY SALINAS MD E Ot G56.93 UNSPECIFIED MONONEUROPATHY OF BILATERAL 10/23/2016 JOSEY SALINAS MD E Ot G57.93 UNSPECIFIED MONONEUROPATHY OF BILATERAL 10/23/2016 JOSEY SALINAS MD E Ot I10 ESSENTIAL (PRIMARY) HYPERTENSION 10/23/2016 JOSEY SALINAS MD E Ot M19.90 UNSPECIFIED OSTEOARTHRITIS, UNSPECIFIED 10/23/2016 JOSEY SALINAS MD E Ot R53.1 WEAKNESS 10/23/2016 JOSEY SALINAS MD E Ot Z48.89 ENCOUNTER FOR OTHER SPECIFIED SURGICAL A 10/23/2016 JOSEY SALINAS MD E Ot Z79.4 FPC (CURRENT) USE OF INSULIN 10/27/2016 JOSEY SALINAS MD E Ot E11.9 TYPE 2 DIABETES MELLITUS WITHOUT COMPLIC 10/27/2016 JOSEY SALINAS MD E Ot F32.9 MAJOR DEPRESSIVE DISORDER, SINGLE EPISOD 10/27/2016 JOSEY SALINAS MD E Ot G47.33 OBSTRUCTIVE SLEEP APNEA (ADULT) (PEDIATR 10/27/2016 JOSEY SALINAS MD E Ot G56.93 UNSPECIFIED MONONEUROPATHY OF BILATERAL 10/27/2016 JOSEY SALINAS MD E Ot G57.93 UNSPECIFIED MONONEUROPATHY OF BILATERAL 10/27/2016 SALINAS MD, JOSEY E Ot I10 ESSENTIAL (PRIMARY) HYPERTENSION 10/27/2016 JOSEY SALINAS MD E Ot M19.90 UNSPECIFIED OSTEOARTHRITIS, UNSPECIFIED 10/27/2016 JAQUAN SALINAS MDIC E Ot R53.1 WEAKNESS 10/27/2016 JOSEY SALINAS MD E Ot Z48.89 ENCOUNTER FOR OTHER SPECIFIED SURGICAL A 10/27/2016 JOSEY SALINAS MD Ot Z79.4 COLLISION ESTIMATOR (CURRENT) USE OF INSULIN 10/29/2016 JOSEY SALINAS MD E Ot E11.9 TYPE 2 DIABETES MELLITUS WITHOUT COMPLIC 10/29/2016 JOSEY SALINAS MD E Ot F32.9 MAJOR DEPRESSIVE DISORDER, SINGLE EPISOD 10/29/2016 JOSEY SALINAS MD E Ot G47.33 OBSTRUCTIVE SLEEP APNEA (ADULT) (PEDIATR 10/29/2016 JOSEY SALINAS MD E Ot G56.93 UNSPECIFIED MONONEUROPATHY OF BILATERAL 10/29/2016 JOSEY SALINAS MD E Ot G57.93 UNSPECIFIED MONONEUROPATHY OF BILATERAL 10/29/2016 JOSEY SALINAS MD E Ot I10 ESSENTIAL (PRIMARY) HYPERTENSION 10/29/2016 JOSEY SALINAS MD E Ot M19.90 UNSPECIFIED OSTEOARTHRITIS, UNSPECIFIED 10/29/2016 JOSEY SALINAS MD E Ot R53.1 WEAKNESS 10/29/2016 JOSEY SALINAS MD E Ot Z48.89 ENCOUNTER FOR OTHER SPECIFIED SURGICAL A 10/29/2016 JOSEY SALINAS MD E Ot Z79.4 COLLISION ESTIMATOR (CURRENT) USE OF INSULIN 10/30/2016 JOSEY SALINAS MD E Ot E11.9 TYPE 2 DIABETES MELLITUS WITHOUT COMPLIC 10/30/2016 JOSEY SALINAS MD E Ot F32.9 MAJOR DEPRESSIVE DISORDER, SINGLE EPISOD 10/30/2016 JAQUAN SALINAS MDIC E Ot G47.33 OBSTRUCTIVE SLEEP APNEA (ADULT) (PEDIATR 10/30/2016 JAQUAN SALINAS MDIC E Ot G56.93 UNSPECIFIED MONONEUROPATHY OF BILATERAL 10/30/2016 BRAD HAGER JOSEY E Ot G57.93 UNSPECIFIED MONONEUROPATHY OF BILATERAL 10/30/2016 JAQUAN SALINAS MDIC E Ot I10 ESSENTIAL (PRIMARY) HYPERTENSION 10/30/2016 JOSEY SALINAS MD E Ot M19.90 UNSPECIFIED OSTEOARTHRITIS, UNSPECIFIED 10/30/2016 BRAD HAGER JOSEY E Ot R53.1 WEAKNESS 10/30/2016 JOSEY SALINAS MD Ot Z48.89 ENCOUNTER FOR OTHER SPECIFIED SURGICAL A 10/30/2016 JOSEY SALINAS MD Ot Z79.4 COLLISION ESTIMATOR (CURRENT) USE OF INSULIN Procedures Code Description Performed By Performed On 81.51 TOTAL HIP REPLACEMENT 03/18/2009 Results Test Result Range Bacteria identification in isolate by anaerobe culture - 05/07/16 15:40 QUANTITY OF GROWTH Isolated NRG Bacteria identification in isolate by anaerobe culture [id number] NRG Gram stain microscopy - 05/07/16 15:40 GRAM STAIN RESULT FEW GRAM NEGATIVE RODS NRG Bacteria identification in wound by culture - 05/07/16 15:40 Bacteria identification in wound by culture [id number] NRG FREE TEXT EXTERNAL BETA LACTAMASE NEGATIVE NRG QUANTITY OF GROWTH Moderate Growth NRG MRSA AGAR Screening test for MRSA is NEGATIVE (Final to follow) NRG FREE TEXT ENTRY 2 (99% PROBABILITY) SEE COMMENT NR Bacterial susceptibility panel - 05/07/16 15:40 Oxacillin [...] Bacteria identification in isolate by anaerobe culture [id number] NRG Gram stain microscopy - 06/11/16 13:24 GRAM STAIN RESULT NO WBC'S OR BACTERIA OBSERVED NRG Bacteria identification in wound by culture - 06/11/16 13:24 Bacteria identification in wound by culture [id number] NRG FREE TEXT EXTERNAL SENSITIVITY REPORTED 06/14/16 9:45 NRG QUANTITY OF GROWTH Scant Growth NRG Bacterial susceptibility panel - 06/11/16 13:24 Oxacillin [...] 13:01 Bacteria identification in wound by culture [id number] NR FREE TEXT EXTERNAL SENSITIVITY REPORTED 07/25/16 [...] 13:05 Bacteria identification in wound by culture [id number] NR FREE TEXT EXTERNAL NO FURTHER STUDIES UNLESS [...] panel - 10/30/16 12:35 ABO+Rh group AP [facility] Transfusion band number [id number] [facility] Blood group antibody screen NEGATIVE [facility] Methicillin resistant Staphylococcus aureus (MRSA) screening culture - 14:35 Methicillin resistant Staphylococcus aureus (MRSA) screening culture NEG [facility] Capillary blood glucose measurement by glucometer (mass/volume) - 10/30/16 15: 34 Capillary blood glucose measurement by glucometer (mass/volume) 73 mg/dL 70-110 Capillary blood glucose measurement by glucometer (mass/volume) - 10/30/16 21: 17 Capillary blood glucose measurement by glucometer (mass/volume) 220 mg/dL 70-110 Complete blood count (CBC) with automated white blood cell (WBC) differential - 10/31/16 04:49 Blood leukocytes automated count (number/volume) 9.0 10*3/ uL 4.3-11.0 Blood erythrocytes automated count (number/volume) 4.26 10*6 /uL 4.35-5.85 Venous blood hemoglobin measurement (mass/volume) 12.5 g/dL 13.3-17.7 Blood hematocrit (volume fraction) 37 % 40-54 Automated erythrocyte mean corpuscular volume 88 [foz_us] 80-99 Automated erythrocyte mean corpuscular hemoglobin (mass per erythrocyte) 29 pg 25-34 Automated erythrocyte mean corpuscular hemoglobin concentration measurement ( mass/volume) 33 g/dL 32-36 Automated erythrocyte distribution width ratio 15.0 % 10.0-14.5 Automated blood platelet count (count/volume) 365 10*3/uL 130-400 Automated blood platelet mean volume measurement 8.6 [foz_us ] 7.4-10.4 Automated blood neutrophils/100 leukocytes 93 % 42-75 Automated blood lymphocytes/100 leukocytes 5 % 12-44 Blood monocytes/100 leukocytes 2 % 0-12 Automated blood eosinophils/100 leukocytes 0 % 0-10 Automated blood basophils/100 leukocytes 0 % 0-10 Blood neutrophils automated count (number/volume) 8.4 10*3 1.8-7.8 Blood lymphocytes automated count (number/volume) 0.5 10*3 1.0-4.0 Blood monocytes automated count (number/volume) 0.2 10*3 0.0-1.0 Automated eosinophil count 0.0 10*3/uL 0.0-0.3 Automated blood basophil count (count/volume) 0.0 10*3/uL 0.0-0.1 Whole blood basic metabolic panel - 10/31/16 04:49 Serum or plasma sodium measurement (moles/volume) 141 mmol/ L 135-145 Serum or plasma potassium measurement (moles/volume) 4.2 mmol/L 3.6-5.0 Serum or plasma chloride measurement (moles/volume) 104 mmol /L 98-107 Carbon dioxide 23 mmol/L 21-32 Serum or plasma anion gap determination (moles/volume) 14 mmol/L 5-14 Serum or plasma urea nitrogen measurement (mass/volume) 17 mg/dL 7-18 Serum or plasma creatinine measurement (mass/volume) 0.81 mg /dL 0.60-1.30 Serum or plasma urea nitrogen/creatinine mass ratio 21 NRG Serum or plasma creatinine measurement with calculation of estimated glomerular filtration rate > NRG Serum or plasma glucose measurement (mass/volume) 205 mg/dL 70-105 Serum or plasma calcium measurement (mass/volume) 9.1 mg/dL 8.5-10.1 Serum or plasma phosphate measurement (mass/volume) - 10/31/16 04:49 Serum or plasma phosphate measurement (mass/volume) 4.7 mg/ dL 2.3-4.7 Magnesium - 10/31/16 04:49 Magnesium 1.7 mg/dL 1.8-2.4 Capillary blood glucose measurement by glucometer (mass/volume) - 10/31/16 10: 55 Capillary blood glucose measurement by glucometer (mass/volume) 182 mg/dL 70-110 Capillary blood glucose measurement by glucometer (mass/volume) - 10/31/16 15: 48 Capillary blood glucose measurement by glucometer (mass/volume) 205 mg/dL 70-110 Capillary blood glucose measurement by glucometer (mass/volume) - 11/01/16 00: 09 Capillary blood glucose measurement by glucometer (mass/volume) 204 mg/dL 70-110 Complete blood count (CBC) with automated white blood cell (WBC) differential - 11/01/16 05:05 Blood leukocytes automated count (number/volume) 12.2 10*3/ uL 4.3-11.0 Blood erythrocytes automated count (number/volume) 3.87 10*6 /uL 4.35-5.85 Venous blood hemoglobin measurement (mass/volume) 11.3 g/dL 13.3-17.7 Blood hematocrit (volume fraction) 34 % 40-54 Automated erythrocyte mean corpuscular volume 88 [foz_us] 80-99 Automated erythrocyte mean corpuscular hemoglobin (mass per erythrocyte) 29 pg 25-34 Automated erythrocyte mean corpuscular hemoglobin concentration measurement ( mass/volume) 33 g/dL 32-36 Automated erythrocyte distribution width ratio 15.3 % 10.0-14.5 Automated blood platelet count (count/volume) 326 10*3/uL 130-400 Automated blood platelet mean volume measurement 8.4 [foz_us ] 7.4-10.4 Automated blood neutrophils/100 leukocytes 73 % 42-75 Automated blood lymphocytes/100 leukocytes 13 % 12-44 Blood monocytes/100 leukocytes 13 % 0-12 Automated blood eosinophils/100 leukocytes 1 % 0-10 Automated blood basophils/100 leukocytes 0 % 0-10 Blood neutrophils automated count (number/volume) 8.9 10*3 1.8-7.8 Blood lymphocytes automated count (number/volume) 1.6 10*3 1.0-4.0 Blood monocytes automated count (number/volume) 1.5 10*3 0.0-1.0 Automated eosinophil count 0.1 10*3/uL 0.0-0.3 Automated blood basophil count (count/volume) 0.0 10*3/uL 0.0-0.1 Comprehensive metabolic panel - 11/01/16 05:05 Serum or plasma sodium measurement (moles/volume) 141 mmol/ L 135-145 Serum or plasma potassium measurement (moles/volume) 3.4 mmol/L 3.6-5.0 Serum or plasma chloride measurement (moles/volume) 103 mmol /L 98-107 Carbon dioxide 28 mmol/L 21-32 Serum or plasma anion gap determination (moles/volume) 10 mmol/L 5-14 Serum or plasma urea nitrogen measurement (mass/volume) 17 mg/dL 7-18 Serum or plasma creatinine measurement (mass/volume) 0.65 mg /dL 0.60-1.30 Serum or plasma urea nitrogen/creatinine mass ratio 26 NRG Serum or plasma creatinine measurement with calculation of estimated glomerular filtration rate > NRG Serum or plasma glucose measurement (mass/volume) 150 mg/dL 70-105 Serum or plasma calcium measurement (mass/volume) 8.9 mg/dL 8.5-10.1 Serum or plasma total bilirubin measurement (mass/volume) 0.7 mg/dL 0.1-1.0 Serum or plasma alkaline phosphatase measurement (enzymatic activity/volume) 54 U/L 40-136 Serum or plasma aspartate aminotransferase measurement (enzymatic activity/ volume) 22 U/L 5-34 Serum or plasma alanine aminotransferase measurement (enzymatic activity/volume ) 54 U/L 0-55 Serum or plasma protein measurement (mass/volume) 6.0 g/dL 6.4-8.2 Serum or plasma albumin measurement (mass/volume) 3.1 g/dL 3.2-4.5 Capillary blood glucose measurement by glucometer (mass/volume) - 11/01/16 06: 26 Capillary blood glucose measurement by glucometer (mass/volume) 149 mg/dL 70-110 Capillary blood glucose measurement by glucometer (mass/volume) - 11/01/16 11: 08 Capillary blood glucose measurement by glucometer (mass/volume) 177 mg/dL 70-110 Capillary blood glucose measurement by glucometer (mass/volume) - 11/01/16 17: 47 Capillary blood glucose measurement by glucometer (mass/volume) 151 mg/dL 70-110 Encounters ACCT No. Visit Date/Time Discharge Status Pt. Type Provider Facility Loc./Unit Complaint [id number] 10/19/2016 16:34:00 2016 16:13:00 DIS Inpatient BRAD HAGER, JOSEY Celestin [facility] IRF CERVICAL SPONDYLOSIS WITH MYELOPATHY [id number] 10/08/2016 12:08:00 2016 16:00:00 DIS Outpatient ADOLFO NATARAJAN PR[employer]OX CUSTODIAN [facility] WOUNDCARE [id number] 08/04/2016 11:54:00 2016 00:01:00 DIS Outpatient ADOLFO NATARAJAN [employer] CUSTODIAN [facility] WOUNDCARE [id number] 11/05/2014 18:04:00 2014 23:59:59 CLS Outpatient DA ARROYO [facility] QUICK [id number] 06/08/2014 10:07:00 2014 23:59:59 CLS Outpatient GARCIAJOSSELINE KARLY C [employer] CUSTODIAN [facility] QUICK [id number] 10/30/2016 21:53:00 ACT Inpatient LEIA SANZ MD [facility] 4TH FRACTURE [id number] 10/12/2016 20:12:00 Document Registration [id number] 09/15/2016 13:59:00 ACT Outpatient ADOLFO NATARAJAN [employer] CUSTODIAN [facility] LAB E11.621 [id number] 08/04/2016 11:40:00 ACT Outpatient ADOLFO NATARAJAN [employer] CUSTODIAN [facility] LAB E11.621 [id number] 05/13/2016 16:28:00 ACT Outpatient ADOLFO NATARAJAN [employer] CUSTODIAN [facility] RAD L97.412,E11.621 [id number] 03/18/2009 05:46:00 Document Registration
[2016-11-03] MEDS: inSUlin ASPART (NovoLOG) 1 UNIT/0.01 ML (CHARGE PER UNIT) SC SCH (05:22)
[2016-11-03] MEDS: metFORMIN 500 MG (GLUCOPHAGE) TAB PO SCH (06:00)
[2016-11-03] MEDS: BACLOFEN 10 MG (LIORESAL) TAB PO SCH (06:00)
[2016-11-03] MEDS: MULTIVIT W/MINERALS TAB (THERAGRAN M) PO SCH (06:00)
[2016-11-03 08:00] VITALS: BP 134/81
[2016-11-03] MEDS: SENNA W/DOCUSATE (SENOKOT S) TABLET PO SCH (09:49)
[2016-11-03] MEDS: LACTULOSE SYRUP 10GM/15ML (ENULOSE) 30ML UDC PO SCH (09:49)
[2016-11-03] MEDS: LACTATED RINGERS 1,000 ML IV SCH (09:49)
[2016-11-03] MEDS: HYDROCHLOROTHIAZIDE 25 MG (HCTZ) TAB PO SCH (09:50)
[2016-11-03] MEDS: VERAPAMIL 80 MG (ISOPTIN) TAB PO SCH (09:50)
[2016-11-03] MEDS: POLYETHYLENE GLYCOL 17 GM (MIRALAX) PACK PO SCH (09:50)
[2016-11-03] MEDS: amLODIPine 5 MG (NORVASC) TAB PO SCH (09:50)
--- NOTE | 2016-11-03 10:02 | Discharge Instructions ---
Discharge Instructions Patient Instructions Goal/Follow Up Appt: Restore to independent living Activity & Diet Discharge Diet: ADA Diet THALIA DAY MD Nov 03, 2016 10:02
--- NOTE | 2016-11-03 10:16 | Progress Note-Hospitalist ---
Standard Progress Note Progress Notes/Assess & Plan Date Seen 11/03/16 Time Seen by Provider: 10:16 Diagnosis Assessment: status post cervical spine surgery stage II of 2 stage surgery for spinal cord compression POD # 1 Dysphagia due to edema from neck surgery NPO for now except ice ships and PO meds Diabetes mellitus Obstructive sleep apnea compliant with treatment Hypertension Hyperlipidemia Status post narcotic bowel requiring soapsuds enema for disimpaction 2 and half weeks ago maintained on regimen Assess & Plan/Chief Complaint The patient seems a bit dour today. He remains on schedule for transfer to the inpatient rehabilitation facility and these orders have been placed. Adjustments have been made and the medications to eliminate duplications. Physical exam: Lungs are clear to auscultation. CV is regular without murmur. The hands show resolution of the edema on the right. 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 Impression: Day 1 for postop stage II surgical procedure for cervical spinal stenosis/core compression. 2.hypertension. 3.diabetes mellitus type II insulin requiring. 4.peripheral neuropathy with healing sore right foot Labs Laboratory Tests 11/02/16 04:50 THALIA DAY MD Nov 03, 2016 10:16
--- NOTE | 2016-11-04 12:07 | Discharge Summary-Hospitalist ---
Diagnosis/Chief Complaint Date of Admission Oct 30, 2016 at 21:53 Date of Discharge Nov 03, 2016 at 10:52 Discharge Date: Nov 03, 2016 Admission Diagnosis Assessment: status post cervical spine surgery stage II of 2 stage surgery for spinal cord compression POD # 1 Dysphagia due to edema from neck surgery NPO for now except ice ships and PO meds Diabetes mellitus Obstructive sleep apnea compliant with treatment Hypertension Hyperlipidemia Status post narcotic bowel requiring soapsuds enema for disimpaction 2 and half weeks ago maintained on regimen Discharge Diagnosis Assessment: s/p cervical spine surgery stage II of 2 stage surgery for spinal cord compression POD # 4 Dysphagia due to edema from neck surgery but tolerating ice chips and water and PO meds so advancing to [facility] but still needs formal swallow evaluation Diabetes mellitus labile due to restricted PO intake Obstructive sleep apnea compliant with treatment Hypertension Hyperlipidemia Status post narcotic bowel requiring soapsuds enema for disimpaction 2 and half weeks ago maintained on aggressive regimen currently Leukocytosis Hypokalemia Patient's sleeping soundly currently without distress Still on Dilaudid and Dr. Atkinson informed him we would need to start weaning down and go back to the hydrocodone Narcotic bowel regimen maintained Blood pressure doing much better on by mouth meds Dysphagia appears to be much better advanced to clear liquids but still needs a formal swallow eval No fever, vital signs stable, pleasant, chronically ill, snoring Regular rate and rhythm, clear to auscultation bilaterally No edema Laboratory Tests 11/01/16 05:05 Assessment: s/p cervical spine surgery stage II of 2 stage surgery for spinal cord compression POD # 2 Dysphagia due to edema from neck surgery but tolerating ice chips and water and PO meds so advancing to [facility] but still needs formal swallow evaluation Diabetes mellitus labile due to restricted PO intake Obstructive sleep apnea compliant with treatment Hypertension Hyperlipidemia Status post narcotic bowel requiring soapsuds enema for disimpaction 2 and half weeks ago maintained on aggressive regimen currently Leukocytosis Hypokalemia Plan: Speech therapy evaluation and nothing by mouth except for ice chips and meds until then since may be an aspiration risk Pain medication Monitor labs SCDs Bowel regimen Monitor closely Gentle IVF Replace potassium Reason Hospital Visit/Course CC: s/p cervical spine surgery due to spinal cord compression HPI: This is a 61-year-old white male patient of Dr. Falcon's that I have been taking care of since he had surgery in [facility] 2 and half weeks ago due to cervical spine cord compression had his first stage of surgery done there with good results then transferred over to rehabilitation via [facility] [place] for rehabilitation that now required an urgent second phase surgery by Dr. Atkinson due to continued spinal cord compression that was uncomplicated last night. He is doing well except for mild dysphagia we are presuming an aspiration risk so we are just holding off on anything but ice chips and evaluating with a speech therapy consult. I have reconciled all of his home medicine and restarted all of his blood pressure medicine and insulin regimen. He is telling me about how bad his pain is of which Dilaudid and Percocet are ordered with good response. The intention is to return to rehabilitation unit next week. Hospital course: Patient had an uneventful hospital course he was started ICU postop after extensive cervical spine surgery and stabilized and improved dramatically with paralysis-like symptoms from cervical spinal cord compression. Laboratory was monitored along with blood pressure but he was placed nothing by mouth due to concerns of aspiration due to swelling and the throat region. Diabetes was managed with every 6 Accu-Cheks with sliding scale insulin regimen and patient was maintained on Dilaudid and hydrocodone for pain. Overall he stabilized was able to transfer down to the floor overall doing much better and was stable prior to transferring to inpatient rehabilitation again for further rehabilitation. Discharge Summary Discharge Physical Examination Allergies: Coded Allergies: No Known Drug Allergies (Verified , 03/18/09) Vitals & I&Os Vital Signs Date Time Temp Pulse Resp B/P (MAP) Pulse Ox O2 Delivery O2 Flow Rate FiO2 11/03/16 09:00 95 Room Air 11/03/16 08:00 98.1 74 16 134/81 11/02/16 20:40 2.00 Hospital Course Labs (last 24 hrs) Microbiology 10/30/16 MRSA Screen - Final, Complete MRSA not isolated Discharge Home Medications: Active Scripts Active Reported Avapro (Irbesartan) 300 Mg Tablet 300 Mg PO HS Celebrex (Celecoxib) 400 Mg Capsule 400 Mg PO DAILY Tramadol HCl 50 Mg Tablet 50 Mg PO HS Metformin HCl 500 Mg Tablet 500 Mg PO BID Verapamil HCl 40 Mg Tablet 40 Mg PO BID [place] 10-325 Tablet (Hydrocodone/Acetaminophen) 1 Each Tablet 1 Tab PO Q4H PRN Tylenol Extra Strength (Acetaminophen) 500 Mg Tablet 500 Mg PO Q6H PRN Novolin R (Insulin Regular, Human) 100 Unit/1 Ml Vial 35 Units SQ AC Hydrochlorothiazide 25 Mg Tablet 25 Mg PO DAILY B Complex (Vitamin B Complex) 1 Cap Capsule 1 Cap PO DAILY Multiple Vitamin (Multivitamins) 1 Tab Tablet 1 Tab PO DAILY Instructions to patient/family Please see electonic discharge instructions given to patient. Clinical Quality Measures DVT/VTE Risk/Contraindication: Risk Factor Score Per Nursin RFS Level Per Nursing on Admit: 4+=Very High KEANU LI DO Nov 04, 2016 12:07
== END 2016-11-03 10:52 | DRG 29 ==
LOC: SDC 17:47 → ICU 21:53 → 4TH 10-31 13:05
PROVIDERS: ADMIT Internal Medicine; ATTEND Orthopaedic Surgery Orthopaedic Surgery of the Spine
PROC: 0RG4071 Fusion of Cervicothoracic Vertebral Joint with Autologous Tissue Substitute, Posterior Approach, Posterior Column, Open Approach (ICD-10-PCS; 2016-10-30)
PROC: 0RG7071 Fusion of 2 to 7 Thoracic Vertebral Joints with Autologous Tissue Substitute, Posterior Approach, Posterior Column, Open Approach (ICD-10-PCS; 2016-10-30)
PROC: 0RG2071 Fusion of 2 or more Cervical Vertebral Joints with Autologous Tissue Substitute, Posterior Approach, Posterior Column, Open Approach (ICD-10-PCS; principal; 2016-10-30 16:34)
DX: G95.20 Unspecified cord compression (principal); M47.12 Other spondylosis with myelopathy, cervical region; G47.33 Obstructive sleep apnea (adult) (pediatric); I10 Essential (primary) hypertension; E78.5 Hyperlipidemia, unspecified; Z79.4 Long term (current) use of insulin; R13.19 Other dysphagia; E11.43 Type 2 diabetes mellitus with diabetic autonomic (poly)neuropathy; K59.09 Other constipation; N40.0 Benign prostatic hyperplasia without lower urinary tract symptoms; M48.02 Spinal stenosis, cervical region; D72.829 Elevated white blood cell count, unspecified; E87.6 Hypokalemia; M54.12 Radiculopathy, cervical region
CPT/HCPCS: 36415; 71010; 80048; 80053; 82962; 83735; 84100; 85025; 87081

== ENCOUNTER 2016-11-03 10:52 | Inpatient (IN) | payer BC ==
[~2016-11-03] VITALS: Ht 175.3 cm; Wt 99.8 kg
[~2016-11-03 10:52] MED LIST changes: +IRBE300T42 PO
--- NOTE | 2016-11-03 13:24 | Therapy Group Daily Note ---
Therapy Daily Group Note Patient Education Topic Other List Below Exercises LE Seated Exercise, UE Exercise Other/Notes Pt was an active participant in OT/PT group. He introduced himself and shared a October memory. He shared October trivia questions with the group and knew the answers to many of them. He also did seated exercises with a "[place]" theme. He propelled his power chair to and from group and, at end of group, was back in his room to eat, up in his chair. Start Time: 13:00 Stop Time: 14:10 Total Billed Treatment Time: 70 Total Billed Treatment visit, 70 minutes group THAI HOOVER OT Nov 03, 2016 13:24
[2016-11-03] MEDS ORDERED: ACETAMINOPHEN 500 MG TAB (TYLENOL) PO PRN (13:30)
[2016-11-03] MEDS ORDERED: ONDANSETRON 4 MG/2 ML (SDV) Z0FRAN IVP PRN (13:30)
--- NOTE | 2016-11-03 13:30 | Physical Therapy Evaluation ---
PT Evaluation-General Medical Diagnosis Admission Date Nov 03, 2016 at 10:52 Medical Diagnosis: cervical spine surgery Onset Date: Oct 30, 2016 Therapy Diagnosis Therapy Diagnosis: impaired mobility, strength, endurance Height/Weight Height (Feet): 5 Height (Inches): 11.00 Weight (Pounds): 223 Weight (Ounces): 0.0 Referral Physician: Rambo Reason for Referral: Evaluation/Treatment Medical History Pertinent Medical History: Arthritis, DM, HTN, Neuropathy, OA Current History Patient had second part of cervical surgery Reviewed History: Yes Social History Home: Single Level Current Living Status: Significant Other Entry Into Home: Stairs With Railing PT Steps Into Home: 5 Prior/Core FIM Prior Level of Function Functional Union Measure 0=Not Assessed/NA 4=Minimal Assistance 1=Total Assistance 5=Supervision or Setup 2=Maximal Assistance 6=Modified Union 3=Moderate Assistance 7=Complete Union Bed Mobility: 6 Transfers (B,C,W/C) (FIM): 6 Gait: 6 Patient reports he was independent using a crutch PT Evaluation-Current Subjective Patient in bed pre tx, agrees to PT, has pain of 7/10 in neck and shoulders. Recently had pain meds. Pt/Family Goals to be independent at home Objective Patient Orientation: Normal For Age cervical collar ROM/Strength ROM Lower Extremities WNL Strenght Lower Extremities 2+to 3-/5 gross bilateral lower extremities Integumentary/Posture Bladder Incontinence: Tobin Cath Neuromuscular (Tone, Coordination, Reflexes) Patient has abnormal tone in bilateral lower extremities, low tone with spasms Sensory Vision: Wears Glasses Hearing: Functional Sensation Right Lower Extremit: Intact Sensation Left Lower Extremity: Intact Transfers Functional Union Measure 0=Not Assessed/NA 4=Minimal Assistance 1=Total Assistance 5=Supervision or Setup 2=Maximal Assistance 6=Modified Union 3=Moderate Assistance 7=Complete IndependenceIRFPAI Quality Coding Scale 6 Independent with activity with or without an assistive device 5 Patient requires set up or clean up by helper. Patient completes activity by themselves 4 Supervision or touching assist (CGA). [place] provide cues , steadying assist 3 The helper provides less than half the effort to complete the activity 2 The helper provides more than half the effort to complete the activity 1 Dependent. The helper does all the effort to complete an activity 7 Patient refused to complete or attempt activity 9 The patient did not perform the activity before the current illness or injury 88 Not attempted due to Medical conditions or safety concerns Transfers (B, C, W/C) (FIM): 2 Scootin Rollin Roll Left to Right (QC): 2 Supine to/from Sit: 2 Sit to/from Stand: 2 bed t/f WC(FIM only if WC use): 2 Sit to Lying (QC): 2 Lying to Sitting/Side of Bed(Q: 2 Sit to Stand (QC): 2 Chair/Zyv-gk-Kbflk Xfer(QC): 2 Patient performs bed mobility with max assist and sit to stand with max assist and bed chair wheelchair with max assist. He also uses the standing machine with nursing or to toilet but he is dependent with that transfer. Gait Does the Patient Walk?: No and Walking Goal IS indicated Wheelchair Training Does the Pt Use a Wheelchair?: Yes Wheelchair (FIM): 5 Distance: 200' Wheelchair Level of Assist: 5 Wheel 50 ft with 2 turns (QC): 4 Wheel 150 ft (QC): 4 Type of Wheelchair: Motorized Patient can drive a power wheelchair 200' with SBA. Stairs If not tested on admit;explain Patient does not have the strength or balance to attempt stairs. Balance Sitting Static: Fair Sitting Dynamic: Poor Standing Static: Poor Standing Dynamic: Poor Treatment Patient performed bed mobility and transfers, sit to landing support specialist the parallel bars x2, he was dressed and toileted, OT performed their eval and bathing, wheelchair mobility. Assessment/Needs Patient has impaired mobility, strength, endurance. Compared to the last time he was here, he was able to landing support specialist the parallel bars with slightly less assist but is still max assist, he also seems to maybe have a little more AROM in legs and right hand. Rehab Potential: Poor PT Short Term Goals Short Term Goals Time Frame: Nov 10, 2016 Transfers (B,C,W/C) (FIM): 3 Gait (FIM): 1 Gait Distance Comment: 10' Gait Level of Assist: 2 Gait Assistive Device: FWW, Walker Platform PT Alf Goals Alf Goals PT Assembler Dc Field Ring Goals Time Frame: Nov 24, 2016 Transfers (B,C,W/C) (FIM): 4 Sit to Lying (QC): 3 Lying-Sitting on Side/Bed(QC): 3 Sit to Stand (QC): 3 Rollin Roll Left to Right (QC): 3 Chair/Yik-zs-Arzsm Xfer(QC): 3 Gait (FIM): 1 Distance: 20' Walk 10 feet (QC): 2 Gait Level of Assist: 2 Gait Assistive Device: FWW, Walker Platform Wheelchair (FIM): 6 Distance: 500' Wheelchair Level of Assist: 6 Wheel 50 feet with 2 turns (QC: 6 PT Plan Problem List Problem List: Activity Tolerance, Functional Strength, Safety, Balance, Gait, Transfer, Bed Mobility, ROM Treatment/Plan Treatment Plan: Continue Plan of Care Treatment Plan: Bed Mobility, Education, Functional Activity Fady, Functional Strength, Group Therapy, Gait, Safety, Therapeutic Exercise, Transfers Treatment Duration: Nov 24, 2016 # of days/week 5-6 Visits Per Week: 10-11 Minutes/Day (M-F): 60-90 Minutes/Day (Sat/Cotter): 15-30 Pt/Family Agrees w/Plan: Yes Safety Risks/Education Patient Education: Transfer Techniques, Correct Positioning, W/C Management, Reviewed Don/Doff Brace, Safety Issues Teaching Recipient: Patient Teaching Methods: Demonstration, Discussion Response to Teaching: Reinforcement Needed Discharge Recommendations Plan Patient will perform bed mobility and transfer training, balance and endurance training, functional strengthening, gait training, and education, to improve functional mobility and independence at home. Therapy D/C Recommendations: Home w/ Family Support, Longterm (TCU/NH) Time/GCodes Time In: 1020 Time Out: 1200 Total Billed Treatment Time: 85 Total Billed Treatment 1 visit EVM 15' FA 70' PT performed eval and treatment from [id number]. OT performed eval and treatment from [id number]. PT and OT cotreated from [id number], PT helped with mobility during dressing and bathing and cleaning up after toileting. CATALINA RUBI PT Nov 03, 2016 13:30
[2016-11-03] MEDS ORDERED: PNEUMOCOCCAL VACCINE 25 MCG/0.5 ML VIAL IM ONE (14:00)
--- NOTE | 2016-11-03 14:05 | Occupational Therapy Eval ---
OT Evaluation-General/PLF Medical Diagnosis Admission Date Nov 03, 2016 at 10:52 Medical Diagnosis: cervical spine surgery Onset Date: Oct 30, 2016 Therapy Diagnosis Therapy Diagnosis: decr self care, decr funct mobility, decr activity alondra, weakness Height/Weight Height (Feet): 5 Height (Inches): 9.00 Weight (Pounds): 224 Weight (Ounces): 0.4 Precautions Precautions/Isolations: Standard Precautions Comments Cervical collar on except when eating. Pt reported he can have it off when in bed as well. Referral Physician: Rambo Referral Reason: Evaluation/Treatment Medical History Pertinent Medical History: Arthritis, DM, HTN, Neuropathy, OA Additional Medical History Sleep apnea (uses bipap), chronic constipation, chronic back pain, psoriasis, depression. CTS bilat, chronic L hip and knee pain (has neoprene knee brace), recent falls Current History Pt fell at home on 10-12-16. Had cervical reconstruction C3-C7 on 10-15-16 and has rigid cervical collar, to be on at all times except when eating. Pt has been non weight-bearing on R LE for 4 months while healing diabetic ulcer R heel. Said he hobbled around using a crutch but can't hold one now. Pt had a decline in function and was readmitted to acute care for additional cervical surgery on 10-30-16. Reviewed History: Yes Social History Home: Single Level Current Living Status: Alone Entry Into Home: Stairs With Railing Steps Into Home: 5 He is from his but she helps him out ADL-Prior Level of Function ADL PLOF Comments Pt reported that he previously has been able to manage his basic self care needs until recently when he has declined. 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 He said his recent activity level was hobbling to the living room and sitting all day in his underwear and t -shirt. Pt was most recently on ARU but had a decline in function and was dependant for ADLs by time of second surgery. 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 Pain rated 8/10 "all over". Nursing reported pt had pain meds prior to transfer - info shared with pt. Appearance Alert but seems a little drowsy. Cooperative Mental Status/Objective Patient Orientation: Person, Place, Time, Situation Attachments: Tobin Catheter, Saline Lock, Other-See Comments (cervical collar) Current Glasses/Contacts: Yes Hearing Aids: No Dentures/Partials: No Hand Dominance: Right Upper Extremity ROM Upper Extremity ROM L UE shoulder flex to approx 90 degrees/abd. Active elbow flex and ext against gravity, active pron/sup, wrist flex and ext, finger flex and ext (limited by edema). Unable to make a complete fist. R UE - unable to do shoulder flex/abd more than a few degrees. Elbow flex with gravity eliminated but not against gravity. Active pron/sup in mid range. Wrist ext to just past neutral. Can flex all fingers actively (less with index) but unable to touch fingers to palm. Significant edema R hand Upper Extremity Sensation pt reported fingers hurt and they are also somewhat numb Edema: Edema in hands, R greated than L. Isotoner glove applied to R hand ADL-Treatment ADL-Current Too fatigued today for shower. Functional [place] Measure 0=Not Assessed/NA 4=Minimal Assistance 1=Total Assistance 5=Supervision or Setup 2=Maximal Assistance 6=Modified [place] 3=Moderate Assistance 7=Complete IndependenceIRFPAI Quality Coding Scale 6 Independent with activity with or without an assistive device 5 Patient requires set up or clean up by helper. Patient completes activity by themselves 4 Supervision or touching assist (CGA). [place] provide cues , steadying assist 3 The helper provides less than half the effort to complete the activity 2 The helper provides more than half the effort to complete the activity 1 Dependent. The helper does all the effort to complete an activity 7 Patient refused to complete or attempt activity 9 The patient did not perform the activity before the current illness or injury 88 Not attempted due to Medical conditions or safety concerns Eating (FIM): 1 (Pt is on liquid diet. Can get spoon to mouth with L hand but can't keep jello on spoon) Eating (QC): 1 Bathing (FIM): 1 (Unable to hold wash cloth to wash any areas other than upper chest. Sponge bath) Bathing Location: Chest Shower/Bathe Self (QC): 1 Upper Body Dressing (FIM): 2 (Able to assist with getting hands to sleeves but unable to pull shirt up over elbows, get shirt over head or pull it down) Upper Body Dressing (QC): 2 Lower Body Dressing (FIM): 1 (can pick feet up to put into pants but unable to pull them up over legs or thighs, hips. Unable to get shoes, socks on. Requires sit to stand lift and two people to stand to pull pants up) Lower Body Dressing (QC): 1 (two people) On/Off Footwear (QC): 1 Toileting (FIM): 1 (Unable to mamage hygiene or clothing. 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 Pt and OT co-treated for ADLs and standing, with OT focusing on ADLs and UE function and PT focusing on LEs and transfer/mobility. Phen pt worked on standing in parallel bars, OT focused on hand function and weight bearing especially R UE. Also put Isotoner glove on R hand to help decrease edema. At end of tx, pt in commons area for group, all needs met. Education OT Patient Education: Purpose of tx/functional activities, Reviewed precautions , Rehab process Teaching Recipient: Patient Teaching Methods: Discussion Response to Teaching: Verbalize Understanding OT Short Term Goals Short Term Goals Time Frame: Nov 17, 2016 Eating(FIM): 4 Grooming(FIM): 3 Upper Body Dressing(FIM): 3 Lower Body Dressing(FIM): 3 Toileting(FIM): 3 Toilet/Commode Transfer(FIM): 3 Shower Transfer(FIM): 3 Additional Short Term Goals: 2-Verbalize Understanding, 3-ImproveStrength/Fady 1=Demonstrate adherence to instructed precautions during ADL tasks. 2=Patient will verbalize/demonstrate understanding of assistive devices/ modifications for ADL. 3=Patient will improve strength/tolerance for activity to enable patient to perform ADL's. OT Well Services Operator Goals Residential Goals Time Frame: Dec 01, 2016 Eating (FIM): 5 Eating (QC): 5 Groomin Oral Hygiene (QC): 5 Bathing(FIM): 5 Shower/Bathe Self (QC): 5 Upper Body Dressing(FIM): 5 Upper Body Dressing (QC): 5 Lower Body Dressing(FIM): 5 Lower Body Dressing (QC): 5 On/Off Footwear (QC): 4 Toileting(FIM): 5 Toileting Hygiene (QC): 5 Toilet/Commode Transfer(FIM): 5 Toilet/Commode Transfer (QC): 5 Shower Transfer(FIM): 5 Additional Goals: 2-Verbalize Understanding, 3-ImproveStrength/Fady 1=Demonstrate adherence to instructed precautions during ADL tasks. 2=Patient will verbalize/demonstrate understanding of assistive devices/ modifications for ADL. 3=Patient will improve strength/tolerance for activity to enable patient to perform ADL's. OT Education/Plan Problem List/Assessment Assessment: Decreased Activ Tolerance, Decreased UE Strength, Dependent Transfers, Impaired Bed Mobility, Impaired Coordination, Impaired Funct Balance , Impaired Self-Care Skills, Restricted Funct UE ROM Pt would benefit from skilled OT to increase his independence in basic self care to allow him to safely return to his home to live alone and to decrease caregiver burden. Discharge Recommendations Plan/Recommendations: Continue POC Treatment Plan/Plan of Care Treatment,Training & Education: Yes Patient would benefit from OT for education, treatment and training to promote independence in ADL's, mobility, safety and/or upper extremity function for ADL' s. Plan of Care: ADL Retraining, Functional Mobility, Group Exercise/Act as Ind ( education, exercise, activity tolerance, functional activities, socialization), UE Funct Exercise/Act, UE Neuromus Re-Ed/Coord, W/C Management Training Treatment Duration: Dec 01, 2016 # of days/week 5-6 Visits Per Week: 10-11 Minutes/Day (M-F): 75-90 Minutes/Day (Sat/Cotter): PRN Agreement: Yes Rehab Potential: Fair Time/GCodes Start Time: 11:00 Stop Time: 12:00 Total Time Billed (hr/min): 60 Billed Treatment Time visit, 10 minutes evaluation high intensity, 35 minutes ADL, 15 minutes functional activities THAI HOOVER OT Nov 03, 2016 14:05
[2016-11-03] MEDS: oxyCODONE/APAP 10/325MG (PERCOCET 10) TABLET PO PRN ×2 (14:56→19:34)
[2016-11-03] MEDS: inSUlin (REGULAR) HUMAN 1 UNIT/0.01 ML (CHARGE PER UNIT) SC SCH (15:58)
[2016-11-03] MEDS: metFORMIN 500 MG (GLUCOPHAGE) TAB PO SCH (16:26)
[2016-11-03] MEDS: inSUlin ASPART (NovoLOG) 1 UNIT/0.01 ML (CHARGE PER UNIT) SC SCH (17:54)
[2016-11-03 18:35] VITALS: BP 145/87
[2016-11-03] MEDS: POLYETHYLENE GLYCOL 17 GM (MIRALAX) PACK PO SCH (20:39)
[2016-11-03] MEDS: LACTULOSE SYRUP 10GM/15ML (ENULOSE) 30ML UDC PO SCH (20:39)
[2016-11-03] MEDS: SENNA W/DOCUSATE (SENOKOT S) TABLET PO SCH (20:40)
[2016-11-03] MEDS: IRBESARTAN 150 MG (AVAPRO) TAB PO SCH (20:43)
[2016-11-04] MEDS: inSUlin ASPART (NovoLOG) 1 UNIT/0.01 ML (CHARGE PER UNIT) SC SCH ×2 (00:15→05:28)
[2016-11-04] MEDS: oxyCODONE/APAP 10/325MG (PERCOCET 10) TABLET PO PRN ×6 (00:19→20:11)
[2016-11-04] MEDS: DIAZEPAM 5 MG (VALIUM) TABLET PO PRN ×2 (00:25→17:34)
[2016-11-04 05:00] VITALS: BP 150/91
[2016-11-04] MEDS: metFORMIN 500 MG (GLUCOPHAGE) TAB PO SCH ×2 (06:42→17:34)
[2016-11-04] MEDS: MULTIVIT W/MINERALS TAB (THERAGRAN M) PO SCH (06:42)
[2016-11-04] MEDS: inSUlin (REGULAR) HUMAN 1 UNIT/0.01 ML (CHARGE PER UNIT) SC SCH ×3 (07:19→17:35)
[2016-11-04] MEDS: LACTULOSE SYRUP 10GM/15ML (ENULOSE) 30ML UDC PO SCH ×2 (08:36→20:01)
[2016-11-04] MEDS: amLODIPine 5 MG (NORVASC) TAB PO SCH (08:36)
[2016-11-04] MEDS: SENNA W/DOCUSATE (SENOKOT S) TABLET PO SCH ×2 (08:37→20:01)
[2016-11-04] MEDS: HYDROCHLOROTHIAZIDE 25 MG (HCTZ) TAB PO SCH (08:37)
[2016-11-04] MEDS: POLYETHYLENE GLYCOL 17 GM (MIRALAX) PACK PO SCH ×2 (08:37→20:07)
--- NOTE | 2016-11-04 09:00 | ST Cognitive Linguistic Eval ---
Speech Evaluation-General Medical Diagnosis Cervical Spine Surgery Onset Date: Oct 30, 2016 Therapy Diagnosis Therapy Diagnosis: Cognitive Linguistic Function WNL Precautions Precautions/Isolations: Standard Precautions Referral Referring Physician: Dr. Sebastian Ricks Cognitive Evaluation Medical History Pertinent Medical History: Arthritis, DM, HTN, Neuropathy, OA Reviewed History: Yes Social History Current Living Status: Alone Speech PLF-Current Status Prior Level of Function The patient denied recent challenges or changes with his cognition (including memory, communication, and problem solving). Per patient, "I sleep a little more with the stronger pain medication but I feel that's normal." Subjective The patient was recently re-admitted to [facility] following a repeat cervical spine procedure. The patient greeted the clinician appropriately and was agreeable to participation in the cognitive evaluation. Language Eval: Auditory Comprehends Simple Yes/No Ques: Functional Indent/Objects [place]: Functional Ident/Pics in [place]: Functional Follows 1-Step Commands: Functional Follows Complex Directions: Functional Follows General Conversations: Functional Language Eval: Verbal Language Completes Spontaneous Greeting: Functional Produces Auto, Serial Info: Functional Imitates Simple Words/Phrases: Functional Word Finding: Functional Requests Basic Needs: Functional States Basic Personal Info: Functional Expresses Complex Ideas: Functional Cognitive Patient Orientation The patient was independently oriented to month, day of week, date, and year. Objective Cognitive Domain Attention: WNL Memory: WNL Problem Solving: Functional Executive Functions: WNL Objective Impression The patient demonstrated cognitive linguistic skills grossly within normal limits and appropriately for completion of ADL's. Communication/Social Cognition Comprehension: 6 Expression: 6 Social Interaction: 5 Problem Solvin Memory: 6 Speech Patient Assess Expression of Ideas/Wants: Expression (4) Understanding [place] Content: Understands (4) Brief Interview-Mental Status: Yes Repetition of Three Words: Three (3) Temporal Orientation: Year: Correct (3) Temporal Orientation: Month: Accurate within 5 days(2) Temporal Orientation: Day: Correct (1) Recall : Wear to say "Sock": Yes, no cue required (2) Recall : Color: Yes, no cue required (2) Recall : Bed: Yes, no cue required (2) Speech-Plan Treatment Plan Speech Therapy Treatment Plan: Discontinue ST Evaluation, only. Rehab Potential: Fair Safety Risks/Education Teaching Recipient: Patient Teaching Methods: Discussion Response to Teaching: Verbalize Understanding Education Topics Provided: Results, Recommendations, Plan of Care Time Speech Therapy Time In: 08:25 Speech Therapy Time Out: 08:40 Total Billed Time: 15 Billed Treatment Time 1, APRIL GARCIA Nov 04, 2016 09:00
--- NOTE | 2016-11-04 09:05 | ST Dysphagia Evaluation ---
Speech Evaluation-General Medical Diagnosis Cervical Spine Surgery Onset Date: Oct 30, 2016 Therapy Diagnosis Therapy Diagnosis: Mild Pharyngeal Dysphagia (secondary to pharyngeal edema) Precautions Precautions/Isolations: Standard Precautions Referral Referring Physician: Dr. Sebastian Ricks Clinical Bedside Swallowing Evaluation Medical History Pertinent Medical History: Arthritis, DM, HTN, Neuropathy, OA Reviewed History: Yes Social History Current Living Status: Alone Speech PLF/Current-Dysphagia Prior Level of Function The patient reported intermittent difficulty with his swallowing ("some throat clearing") following his initial procedure, however, denied recent signs/ symptoms of aspiration. The patient was recently evaluated on the inpatient unit , 11/02/16, and was placed on a mechanical soft diet with thin liquids (no straws) . Subjective The patient was recently re-admitted to the inpatient rehabilitation unit following a repeat cervical spine procedure. The patient greeted the clinician appropriately and was agreeable to participation in the dysphagia assessment. The patient was positioned upright in bed to improve swallowing safety. CXR: 10/31/2016: Lungs are well aerated and clear. Cognitive Status Patient Orientation: Person, Place, Time, Situation Oral Motor Skills Dentition: Natural Current Food Consistancy: Regular, Thin Liquids Oral Expression Ability: No Impairment Voice Voice Phonatory-Based Quality: Glottal Beth Voice Pitch: Normal Voice Loudness: Normal Face Facial Symmetry: Symmetrical Oral-Facial Assessment Oral-Facial Dentition: Normal Labial Seal Description: Normal Smile: Normal Puff Cheeks: Normal Lingual Protrusion: Normal Lingual ROM: Normal Lingual Strength: Normal Pharynx Velopharyngeal Move.: Normal Volitional Dry Swallow: Yes Dysphagia Evaluation Consistencies Presented: Regular, Thin Liquid, Pureed - No oral impairments were noted throughout the swallow evaluation. Pharyngeal Phase: Reduced Laryngeal Elevation - Mildly reduced laryngeal elevation was observed throughout all trials/all consistencies of the swallow assessment. Dietary Recommendations: Regular Liquid Recommendations: Thin (NO STRAWS) Swallowing Precautions: Alternate Liquids/Solids, No Straw, Small Bites and Sips (No larger than one teaspoon in size.), Sitting 90 Degrees 30 Post Intake ( Patient must be positioned upright for PO intake.) 1. Crush medication and place in puree for administration. Dysphagia Evaluation Summary Mild pharyngeal dysphagia characterized by decreased laryngeal elevation. Speech-Plan Treatment Plan Speech Therapy Treatment Plan: Discontinue ST Evaluation, only. Rehab Potential: Fair Safety Risks/Education Teaching Recipient: Patient Teaching Methods: Handout, Discussion Response to Teaching: Verbalize Understanding Education Topics Provided: Results, Recommendations (written on white board), Plan of Care, Signs/Symptoms of Aspiration Time Speech Therapy Time In: 08:40 Speech Therapy Time Out: 08:55 Total Billed Time: 15 Billed Treatment Time 1, APRIL BOURGEOIS Nov 04, 2016 09:05
--- NOTE | 2016-11-04 11:09 | Progress Note-Hospitalist ---
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 Pt has been on soft foods Accuchecks discussed Pt is on sliding scale B insulin Medical Student Review: Pt is feeling better and has been moving arms, but still has pain in neck Pt states that he had BMs last night Pt denies spasms Pt has had breakfast today. Pt is drinking as much as possible, but it's hard to move his arms Pt states that there is irritation between leg and scrotum Patient Interview: Pt states that he has had the catheter since surgery and would like for it to DC. I informed him that we will DC catheter. Pt states that he has had BMs and twice yesterday. Physical exam stable. Lungs sound perfect. Pt is in better spirits AFVSS, pleasant, O x 3, improved RRR, CTAB improved extremity movement and strength No edema Assessment: Status post cervical spine surgery stage II of 2 stage surgery for spinal cord compression POD # 5 Dysphagia due to edema from neck surgery s/p NPO but now ok with nutrition intake PO Diabetes mellitus Obstructive sleep apnea compliant with treatment Hypertension Hyperlipidemia Status post narcotic bowel requiring soapsuds enema for disimpaction 2 and half weeks ago maintained on regimen Plan: DC Catheter Restart home meds AC/HS accuchecks Mepilex for blisters Scribed by Michelle Garcia under the direct supervision of Dr. Duvall. KEANU DUVALL DO Nov 04, 2016 11:09
--- NOTE | 2016-11-04 11:25 | Physical Therapy Daily Note ---
PT Daily Note-Current Subjective Patient in bed pre tx, agrees to PT. Has pain of 5/10 in neck and shoulders. Appearance Patient in electric wheelchair post tx. Mental Status Patient Orientation: Normal For Age cervical collar Transfers Functional [place] Measure 0=Not Assessed/NA 4=Minimal Assistance 1=Total Assistance 5=Supervision or Setup 2=Maximal Assistance 6=Modified [place] 3=Moderate Assistance 7=Complete IndependenceIRFPAI Quality Coding Scale 6 Independent with activity with or without an assistive device 5 Patient requires set up or clean up by helper. Patient completes activity by themselves 4 Supervision or touching assist (CGA). [place] provide cues , steadying assist 3 The helper provides less than half the effort to complete the activity 2 The helper provides more than half the effort to complete the activity 1 Dependent. The helper does all the effort to complete an activity 7 Patient refused to complete or attempt activity 9 The patient did not perform the activity before the current illness or injury 88 Not attempted due to Medical conditions or safety concerns Transfers (B, C, W/C) (FIM): 2 Scootin Rollin Supine to/from Sit: 2 Sit to/from Stand: 2 Bed to/from Chair: 2 max assist with all bed mobility and transfers, however, he can stand with a little less assist Wheelchair Training Does the Pt Use a Wheelchair?: Yes Wheelchair (FIM): 5 Distance: 150'x2 Wheelchair Level of Assist: 5 Type of Wheelchair: Motorized Patient seems a little more uncoordinated with using the joystick and needs occasional cues for obstacles and safety Exercises LAQ alternating for 5 min NuStep Minutes: 15 NuStep Workload: 4 Treatments functional strengthening, patient had to make several stand pivot transfers to get into and out of the wheelchair and stepper Assessment Current Status: Fair Progress improved strength in both legs but no change in mobility PT Short Term Goals Short Term Goals Time Frame: Nov 10, 2016 Gait (FIM): 1 Gait Distance Comment: 10' Gait Level of Assist: 2 Gait Assistive Device: FWW, Walker Platform Wheelchair Distance: 200' PT Jail Goals Jail Goals PT Jail Goals Time Frame: Nov 24, 2016 Transfers (B,C,W/C) (FIM): 4 Sit to Lying (QC): 3 Lying-Sitting on Side/Bed(QC): 3 Sit to Stand (QC): 3 Rollin Roll Left to Right (QC): 3 Chair/Ebf-nn-Ewyof Xfer(QC): 3 Gait (FIM): 1 Distance: 20' Walk 10 feet (QC): 2 Gait Level of Assist: 2 Gait Assistive Device: FWW, Walker Platform Wheelchair (FIM): 6 Distance: 500' Wheelchair Level of Assist: 6 Wheel 50 feet with 2 turns (QC: 6 PT Plan Problem List Problem List: Activity Tolerance, Functional Strength, Safety, Balance, Gait, Transfer, Bed Mobility, ROM Treatment/Plan Treatment Plan: Continue Plan of Care Treatment Plan: Bed Mobility, Education, Functional Activity Fady, Functional Strength, Group Therapy, Gait, Safety, Therapeutic Exercise, Transfers Treatment Duration: Nov 24, 2016 Visits Per Week: 10-11 Minutes/Day (M-F): 60-90 Minutes/Day (Sat/Cotter): 15-30 Safety Risks/Education Patient Education: Transfer Techniques, Correct Positioning, W/C Management, Reviewed Don/Doff Brace, Safety Issues Teaching Recipient: Patient Teaching Methods: Demonstration, Discussion Response to Teaching: Reinforcement Needed Time/GCodes Time In: 1000 Time Out: 1100 Total Billed Treatment Time: 60 Total Billed Treatment 1 visit EX 20' WC 10' FA 30' CATALINA RUBI PT Nov 04, 2016 11:25
--- NOTE | 2016-11-04 11:35 | Occupational Ther Daily Note ---
OT Current Status-Daily Note Subjective Pt seen in room, up in bed, agreeable to OT. Did not specifically mention pain but did ask about pain meds (nursing notified). Appearance Alert, cooperative Mental Status/Objective Functional [place] Measure 0=Not Assessed/NA 4=Minimal Assistance 1=Total Assistance 5=Supervision or Setup 2=Maximal Assistance 6=Modified [place] 3=Moderate Assistance 7=Complete [place] ADL-Treatment Diet order has changed. No straws Functional [place] Measure 0=Not Assessed/NA 4=Minimal Assistance 1=Total Assistance 5=Supervision or Setup 2=Maximal Assistance 6=Modified [place] 3=Moderate Assistance 7=Complete IndependenceIRFPAI Quality Coding Scale 6 Independent with activity with or without an assistive device 5 Patient requires set up or clean up by helper. Patient completes activity by themselves 4 Supervision or touching assist (CGA). [place] provide cues , steadying assist 3 The helper provides less than half the effort to complete the activity 2 The helper provides more than half the effort to complete the activity 1 Dependent. The helper does all the effort to complete an activity 7 Patient refused to complete or attempt activity 9 The patient did not perform the activity before the current illness or injury 88 Not attempted due to Medical conditions or safety concerns Eating (FIM): 1 (Pt has had diet changed. Was not able to maintain grasp on builtup handled spoon with L hand but, with assistance, could get spoon to mouth. 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 Also needed to prop L arm up on additional pillow. May benefit from universal cuff) Eating (QC): 1 Grooming (FIM): 1 (Pt was able to shave L side of face, after setup, with builtup handle on razor. Could not get to R side of face and L neck. Difficulty holding on to built up handle. Could not maintain grasp on electric toothbrush to brush teeth, even with built-up handle. COuld not hold cup to rinse or jackson to spit but could swish water. Unable to brush hair. ) Oral Hygiene (QC): 1 Other Treatment Edema has decreased in R hand. Isotoner glove removed and no reddened areas noted. Pt pleased with progress. Pt encouraged to do active wrist ext bilat while on his own. Pt left up in bed, 4 rails up, call light in place, all needs met. Education OT Patient Education: Modified ADL techniques, Progress toward Goal/Update tx plan, Purpose of tx/functional activities, Use of adapted equipment Teaching Recipient: Patient Teaching Methods: Demonstration, Discussion Response to Teaching: Verbalize Understanding, Reinforcement Needed OT Short Term Goals Short Term Goals Time Frame: Nov 17, 2016 Eating(FIM): 4 Grooming(FIM): 3 Upper Body Dressing(FIM): 3 Lower Body Dressing(FIM): 3 Toileting(FIM): 3 Toilet/Commode Transfer(FIM): 3 Shower Transfer(FIM): 3 Additional Short Term Goals: 2-Verbalize Understanding, 3-ImproveStrength/Fady 1=Demonstrate adherence to instructed precautions during ADL tasks. 2=Patient will verbalize/demonstrate understanding of assistive devices/ modifications for ADL. 3=Patient will improve strength/tolerance for activity to enable patient to perform ADL's. OT Fpc Goals Spray Gun Striper Goals Time Frame: Dec 01, 2016 Eating (FIM): 5 Eating (QC): 5 Groomin Oral Hygiene (QC): 5 Bathing(FIM): 5 Shower/Bathe Self (QC): 5 Upper Body Dressing(FIM): 5 Upper Body Dressing (QC): 5 Lower Body Dressing(FIM): 5 Lower Body Dressing (QC): 5 On/Off Footwear (QC): 4 Toileting(FIM): 5 Toileting Hygiene (QC): 5 Toilet/Commode Transfer(FIM): 5 Toilet/Commode Transfer (QC): 5 Shower Transfer(FIM): 5 Additional Goals: 2-Verbalize Understanding, 3-ImproveStrength/Fady 1=Demonstrate adherence to instructed precautions during ADL tasks. 2=Patient will verbalize/demonstrate understanding of assistive devices/ modifications for ADL. 3=Patient will improve strength/tolerance for activity to enable patient to perform ADL's. OT Education/Plan Problem List/Assessment Pt would benefit from skilled OT to increase his independence in basic self care to allow him to safely return to his home to live alone and to decrease caregiver burden. Discharge Recommendations Plan/Recommendations: Continue POC Treatment Plan/Plan of Care Patient would benefit from OT for education, treatment and training to promote independence in ADL's, mobility, safety and/or upper extremity function for ADL' s. Plan of Care: ADL Retraining, Functional Mobility, Group Exercise/Act as Ind ( education, exercise, activity tolerance, functional activities, socialization), UE Funct Exercise/Act, UE Neuromus Re-Ed/Coord, W/C Management Training Treatment Duration: Dec 01, 2016 Visits Per Week: 10-11 Minutes/Day (M-F): 75-90 Minutes/Day (Sat/Cotter): PRN Agreement: Yes Rehab Potential: Fair Time/GCodes Start Time: 09:15 Stop Time: 10:00 Total Time Billed (hr/min): 45 Billed Treatment Time visit, 45 minutes ADL THAI HOOVER OT Nov 04, 2016 11:35
--- NOTE | 2016-11-04 14:02 | Physical Therapy Daily Note ---
PT Daily Note-Current Subjective Patient in power chair pre tx in therapy gym, has pain of 4/10 in neck and shoulder. Appearance Patient in power chair post tx in room, has access to nurse call. Mental Status Patient Orientation: Normal For Age cervical collar Transfers Functional [place] Measure 0=Not Assessed/NA 4=Minimal Assistance 1=Total Assistance 5=Supervision or Setup 2=Maximal Assistance 6=Modified [place] 3=Moderate Assistance 7=Complete IndependenceIRFPAI Quality Coding Scale 6 Independent with activity with or without an assistive device 5 Patient requires set up or clean up by helper. Patient completes activity by themselves 4 Supervision or touching assist (CGA). [place] provide cues , steadying assist 3 The helper provides less than half the effort to complete the activity 2 The helper provides more than half the effort to complete the activity 1 Dependent. The helper does all the effort to complete an activity 7 Patient refused to complete or attempt activity 9 The patient did not perform the activity before the current illness or injury 88 Not attempted due to Medical conditions or safety concerns Sit to/from Stand: 2 sit to improvement engineer parallel bars with max assist and assist from another person to keep his right hand on the bar. Patient was able to stand x4 for about 1.5-2 min each time. Rest breaks between. Treatments transfers, sit to stand Assessment Current Status: Fair Progress leg strength seems improved a little but still max assist for sit to stand PT Short Term Goals Short Term Goals Time Frame: Nov 10, 2016 Gait (FIM): 1 Gait Distance Comment: 10' Gait Level of Assist: 2 Gait Assistive Device: FWW, Walker Platform Wheelchair Distance: 150'x2 PT Shanker Out Goals Correction Goals PT Correction Goals Time Frame: Nov 24, 2016 Transfers (B,C,W/C) (FIM): 4 Sit to Lying (QC): 3 Lying-Sitting on Side/Bed(QC): 3 Sit to Stand (QC): 3 Rollin Roll Left to Right (QC): 3 Chair/Fhs-qv-Epfsr Xfer(QC): 3 Gait (FIM): 1 Distance: 20' Walk 10 feet (QC): 2 Gait Level of Assist: 2 Gait Assistive Device: FWW, Walker Platform Wheelchair (FIM): 6 Distance: 500' Wheelchair Level of Assist: 6 Wheel 50 feet with 2 turns (QC: 6 PT Plan Problem List Problem List: Activity Tolerance, Functional Strength, Safety, Balance, Gait, Transfer, Bed Mobility, ROM Treatment/Plan Treatment Plan: Continue Plan of Care Treatment Plan: Bed Mobility, Education, Functional Activity Fady, Functional Strength, Group Therapy, Gait, Safety, Therapeutic Exercise, Transfers Treatment Duration: Nov 24, 2016 Visits Per Week: 10-11 Minutes/Day (M-F): 60-90 Minutes/Day (Sat/Cotter): 15-30 Safety Risks/Education Patient Education: Transfer Techniques, Correct Positioning, Safety Issues Teaching Recipient: Patient Teaching Methods: Demonstration, Discussion Response to Teaching: Reinforcement Needed Time/GCodes Time In: 1330 Time Out: 1400 Total Billed Treatment Time: 30 Total Billed Treatment 1 visit FA 30' CATALINA RUBI PT Nov 04, 2016 14:02
--- NOTE | 2016-11-04 14:36 | Occupational Ther Daily Note ---
OT Current Status-Daily Note Subjective Pt seen in room, up in power chair, agreeable to OT. Took himself to the gym. Appearance Alert, cooperative Mental Status/Objective Functional [employer] Measure 0=Not Assessed/NA 4=Minimal Assistance 1=Total Assistance 5=Supervision or Setup 2=Maximal Assistance 6=Modified [employer] 3=Moderate Assistance 7=Complete [employer] ADL-Treatment Functional [employer] Measure 0=Not Assessed/NA 4=Minimal Assistance 1=Total Assistance 5=Supervision or Setup 2=Maximal Assistance 6=Modified [employer] 3=Moderate Assistance 7=Complete IndependenceIRFPAI Quality Coding Scale 6 Independent with activity with or without an assistive device 5 Patient requires set up or clean up by helper. Patient completes activity by themselves 4 Supervision or touching assist (CGA). [place] provide cues , steadying assist 3 The helper provides less than half the effort to complete the activity 2 The helper provides more than half the effort to complete the activity 1 Dependent. The helper does all the effort to complete an activity 7 Patient refused to complete or attempt activity 9 The patient did not perform the activity before the current illness or injury 88 Not attempted due to Medical conditions or safety concerns Other Treatment Edema continues decreased in R hand. No reddened areas from glove. Pt has a blister at base of R thumb and thought it was from wrist splint. Wrist splint applied to R hand and it does not touch this area and does not appear to slide on wrist to rub skin. Pt educ on dorsal wrist splint that is recommended to keep wrists elevated and also has universal cuff on it. 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 Education OT Patient Education: Progress toward Goal/Update tx plan Teaching Recipient: Patient ( present) Teaching Methods: Discussion Response to Teaching: Verbalize Understanding OT Short Term Goals Short Term Goals Time Frame: Nov 17, 2016 Eating(FIM): 4 Grooming(FIM): 3 Upper Body Dressing(FIM): 3 Lower Body Dressing(FIM): 3 Toileting(FIM): 3 Toilet/Commode Transfer(FIM): 3 Shower Transfer(FIM): 3 Additional Short Term Goals: 2-Verbalize Understanding, 3-ImproveStrength/Fady 1=Demonstrate adherence to instructed precautions during ADL tasks. 2=Patient will verbalize/demonstrate understanding of assistive devices/ modifications for ADL. 3=Patient will improve strength/tolerance for activity to enable patient to perform ADL's. OT Mcfp Goals Chalk Cutter Goals Time Frame: Dec 01, 2016 Eating (FIM): 5 Eating (QC): 5 Groomin Oral Hygiene (QC): 5 Bathing(FIM): 5 Shower/Bathe Self (QC): 5 Upper Body Dressing(FIM): 5 Upper Body Dressing (QC): 5 Lower Body Dressing(FIM): 5 Lower Body Dressing (QC): 5 On/Off Footwear (QC): 4 Toileting(FIM): 5 Toileting Hygiene (QC): 5 Toilet/Commode Transfer(FIM): 5 Toilet/Commode Transfer (QC): 5 Shower Transfer(FIM): 5 Additional Goals: 2-Verbalize Understanding, 3-ImproveStrength/Fady 1=Demonstrate adherence to instructed precautions during ADL tasks. 2=Patient will verbalize/demonstrate understanding of assistive devices/ modifications for ADL. 3=Patient will improve strength/tolerance for activity to enable patient to perform ADL's. OT Education/Plan Problem List/Assessment Pt would benefit from skilled OT to increase his independence in basic self care to allow him to safely return to his home to live alone and to decrease caregiver burden. Discharge Recommendations Plan/Recommendations: Continue POC Treatment Plan/Plan of Care Patient would benefit from OT for education, treatment and training to promote independence in ADL's, mobility, safety and/or upper extremity function for ADL' s. Plan of Care: ADL Retraining, Functional Mobility, Group Exercise/Act as Ind ( education, exercise, activity tolerance, functional activities, socialization), UE Funct Exercise/Act, UE Neuromus Re-Ed/Coord, W/C Management Training Treatment Duration: Dec 01, 2016 Visits Per Week: 10-11 Minutes/Day (M-F): 75-90 Minutes/Day (Sat/Cotter): PRN Agreement: Yes Rehab Potential: Fair Time/GCodes Start Time: 13:00 Stop Time: 13:30 Total Time Billed (hr/min): 30 Billed Treatment Time visit, 30 minutes neuromotor THAI HOOVER OT Nov 04, 2016 14:36
[2016-11-04 18:07] VITALS: BP 126/76
[2016-11-04] MEDS: IRBESARTAN 150 MG (AVAPRO) TAB PO SCH (20:01)
--- NOTE | 2016-11-04 21:50 | PM&R Post Admission Assessment ---
Post Admission Physician Asses The preadmission screen agrees with the post admission assessment that the patient is a good candidate for inpatient rehabilitation. The patient will have a comprehensive program of inpatient rehabilitation with a goal of maximizing level of functional independence prior to discharge home with SO and HHC. The patient will have PT/OT ninety minutes per day, each discipline, five days a week for gait .strengthening, conditioning, balance, ADLs, any patient/family/caregiver training as necessary. Speech therapy to do cognitive assessment and treat as indicated. Rehabilitation nursing to assist with bowel, bladder, skin, wound care, medication administration, pain management. Concrete Handler to assist with discharge planning, community reentry. SCD's for DVT prophylaxis. He appears to be well motivated to participate in three hours of therapy a day. He should be able to tolerate three hours of therapy a day from a medical and surgical standpoint. He should benefit from the three hours of therapy a day. He has a reasonable discharge plan, reasonable discharge rehabilitation goals and a supportive family. He has various comorbidities that need to be closely monitored with medications and treatments adjusted on a daily basis as needed. These include: DM Pain management Management of Spasms HTN OA left knee Barriers to discharge for this patient who had been independent prior to this are for him to be modified independent to supervision for ADLs and mobility skills prior to discharge home with SO and HHC, so as to lessen the burden of the caregivers. Risks for this patient include: 1. Fall 2. Fracture 3. DVT 4. Pulmonary embolism 5. Wound infection 6. Skin breakdown 7. Contractures 8. Poorly controlled pain 9. Urinary retention 10. UTI 11. Respiratory infection 12. Aspiration 13. Poorly controlled DM 14. Poorly controlled Spasms 15. Poorly controlled HTN 16. iNCRESING aRTHRITIC PAIN Estimated Length of Stay: 17 days Prognosis: Rehab prognosis appears good for goal of discharge home with so AND hhc modified independent to supervision for ADLs and mobility skills. JOSEY SALINAS MD Nov 04, 2016 21:50
[2016-11-05] MEDS: DIAZEPAM 5 MG (VALIUM) TABLET PO PRN ×3 (04:28→17:20)
[2016-11-05 05:00] VITALS: BP 143/87
[2016-11-05] MEDS: MULTIVIT W/MINERALS TAB (THERAGRAN M) PO SCH (06:26)
[2016-11-05] MEDS: metFORMIN 500 MG (GLUCOPHAGE) TAB PO SCH ×2 (06:26→16:56)
[2016-11-05] MEDS: SENNA W/DOCUSATE (SENOKOT S) TABLET PO SCH ×2 (08:19→21:00)
[2016-11-05] MEDS: amLODIPine 5 MG (NORVASC) TAB PO SCH (08:19)
[2016-11-05] MEDS: oxyCODONE/APAP 10/325MG (PERCOCET 10) TABLET PO PRN ×3 (08:19→20:24)
[2016-11-05] MEDS: HYDROCHLOROTHIAZIDE 25 MG (HCTZ) TAB PO SCH (08:19)
[2016-11-05] MEDS: inSUlin (REGULAR) HUMAN 1 UNIT/0.01 ML (CHARGE PER UNIT) SC SCH ×3 (08:23→16:22)
[2016-11-05] MEDS: LACTULOSE SYRUP 10GM/15ML (ENULOSE) 30ML UDC PO SCH ×2 (08:54→21:00)
[2016-11-05] MEDS: POLYETHYLENE GLYCOL 17 GM (MIRALAX) PACK PO SCH ×2 (08:54→21:00)
--- NOTE | 2016-11-05 09:07 | PM & R (SOAP) Progress Note ---
Subjective Time Seen by Provider: 07:20 Subjective/Events-last exam Patient was seen in his room this AM Spasms and pain fairly well controlled Patient able to self navigate a borrowed power chair..Patient max assist for transfers Review of Systems Musculoskeletal: neck pain, shoulder pain Neurological: Numbness, Weakness Objective Exam Last Set of Vital Signs Vital Signs Date Time Temp Pulse Resp B/P (MAP) Pulse Ox O2 Delivery O2 Flow Rate FiO2 11/05/16 08:50 Room Air 11/05/16 05:00 98.0 86 22 143/87 97 Capillary Refill : I&O Intake and Output 11/05/16 00:00 Intake Total 2020 ml Output Total 1775 ml Balance 245 ml Intake Oral 2020 ml Output Urine Total 1775 ml # Bowel Movements 1 General: Alert, Oriented X3, Cooperative, No Acute Distress HEENT: Atraumatic, PERRLA, EOMI, Mucous Memb Moist/[place] Neck: Supple, Other (inciasion healing well C Collar in place) Lungs: Clear to Auscultation Heart: Regular Rate Abdomen: Normal Bowel Sounds Extremities: Other (trace edema rt hand) Neuro: Other (2-3 strength rt UE Numbness rt hand) Results Lab Laboratory Tests 11/03/16 17:48: Glucometer 119H 11/04/16 00:13: Glucometer 123H 11/04/16 04:45: Glucometer 126H 11/04/16 10:58: Glucometer 97 11/04/16 16:00: Glucometer 82 11/04/16 20:13: Glucometer 93 11/05/16 05:24: Glucometer 106 Assessment/Plan Assessment Cervical spine stenosis with myelopathy s/p decompression DR Atkinson Dysphagia improved diet advanced AMY on cpap HTN controlled DM controlled HLP Plan Continue PT/OT/Pain management Team Conference held yesterday See report for full functional update and POC F/U with Hospitalist and DR Atkinson as per their schedule JOSEY SAILNAS MD Nov 05, 2016 09:07
--- NOTE | 2016-11-05 09:17 | HISTORY AND PHYSICAL ---
DATE OF ADMISSION: 11/03/2016 CHIEF COMPLAINT: Difficulty with walking. HISTORY OF THE PRESENT ILLNESS: This is a 61-year-old male who had been independent until he felt progressive weakness, pain, spasms in his right arm and leg, who went on to have decompression of cervical spinal stenosis with Dr. Atkinson. He was referred to Inpatient Rehabilitation Unit and unfortunately developed increasing spasms and weakness in the right arm. He had a follow-up MRI of the cervical spine which revealed evidence of cord compression. The patient returned to the surgical unit and had surgery on 10/30 for urgent C3-T3 posterior cervical fusion with C3-C7 laminectomy and foraminotomies, instrumentation and bone graft with incidental repair durotomy. Postoperatively, the patient was admitted to the ICU. On 10/31, the patient noted improved motor function in all 4 limbs and was transferred to the medical surgical floor. He was noted to have mild dysphagia postoperatively and speech therapy was consulted. He was placed on mechanically altered diet. Blood pressure medications and insulin regimen were restarted, pain management was done. The patient has now returned to Inpatient Rehabilitation Unit with his commercial insurance approval for ongoing rehab. Currently he requires assistance for his ADLs and mobility skills. PCP: Dr. Falcon PAST MEDICAL HISTORY: 1. Diabetes mellitus. 2. Hypertension. 3. He is to wear a c-collar in place when out of bed. 4. Depression. 5. Obstructive sleep apnea. 6. Osteoarthritis left knee wears brace. PAST SURGICAL HISTORY: As per above. ALLERGIES: No known medication allergies. FAMILY HISTORY: Noncontributory. SOCIAL HISTORY: Lives with his estranged spouse in a [place] outside of [place], [place]. He is unemployed, laid-off from a [employer]. REVIEW OF SYSTEMS: Ten-point review of systems significant for pain, spasms, weakness on the right side. MEDICATIONS: 1. Hydrochlorothiazide 25 mg p.o. daily 2. Norvasc 5 mg p.o. daily 3. multivitamins with minerals 1 tablet p.o. daily 4. Avapro 200 mg p.o. at bedtime 5. Lactulose 10 grams p.o. b.i.d. 6. Senokot-S 1 tablet p.o. b.i.d. 7. metformin 500 mg p.o. b.i.d. 8. Humulin insulin 20 units subcutaneous before meals 9. diazepam 5 to 10 mg p.o. every 6 hours p.r.n. spasms 10. Tylenol 500 mg p.o. q.4 hours p.r.n. mild pain 11. Percocet generic 10/325, 1 to 2 tablets p.o. q.4 hours p.r.n. moderate pain. PHYSICAL EXAMINATION: Significant for a pleasant male, appearing his stated age, sitting up in a chair in no acute distress. Cervical collar on. VITAL SIGNS: Blood pressure is 126/76, respirations 16, pulse is 86. He is afebrile. O2 sat 95% on room air. HEENT: Vision, speech, hearing, grossly intact. No oral lesions noted. NECK: In cervical collar. HEART: Regular rhythm. LUNGS: Clear. ABDOMEN: Soft, nontender. Bowel sounds present. EXTREMITIES: No lower leg edema. No calf tenderness. MUSCULOSKELETAL: He has a functional passive range of motion of all 4 extremities. NEUROLOGICAL: Left upper extremity shoulder flexion of approximately 90 degrees abduction. Active elbow flexion and extension against gravity. Active pronation and supination, wrist flexion and extension of his fingers. Flexion and extension, limited by edema. He has complained of some edema in his hands. He has been unable to make a complete fist. Right upper limb, unable to do shoulder flex, abduct more than a few degrees. Elbow flex with gravity eliminated but not against gravity, active prones supination at the wrist and midray and for wrist extension to just passed neutral. Can flex all fingers actively less with index but unable to touch fingers to palm. Significant edema as noted in the right hand. The patient reports some numbness in the right hand. Speech therapy has done a dysphagia evaluation and found swallow to be functional. The recommendation was advanced to a regular consistency diet so ordered for mechanically altered. Sensation in the lower extremities intact. He has abnormal tone in both lower extremities, low tone with spasms occasionally. Strength in lower extremities 2+ to 3-/5 months grossly in the lower limb. He has functional passive range of motion in the lower extremities, but does have some complaints of pain in the left knee. Prior radiographs reveal moderate DJD. He has a neoprene knee brace for support. IMPRESSION: 1. Ambulatory dysfunction secondary to cervical spine stenosis with resulting myelopathy and spasms, weakness and pain. 2. Insulin-dependent diabetes mellitus. 3. Hypertension, controlled with medication. 4. AMY on Cpap 5. OA left knee wears knee brace PLAN: The patient will have a comprehensive program of inpatient rehabilitation with goal of maximizing level of functional independence prior to discharge home with his estranged spouse and home health care. The patient will have PT/OT 90 minutes per day, each discipline, 5 days week for gait strengthening, conditioning, balance, ADLs, any patient/family/caregiver training necessary, any adaptive equipment and training necessary. Speech therapy has done speech cognition, swallow screen and found him to be functional, diet advanced and signed off. Rehabilitation nursing assist with bowel, bladder, skin, wound care, medication administration, pain management. coordinator volunteer services to assist with discharge planning, community reentry. Follow-up with hospitalist service and Dr. Atkinson as per their schedules. Therapy with cardiac and fall precautions. Continue with cervical collar wear, pain control. Continue with neoprene brace for left knee. Monitor Accu-Cheks and adjust medications as appropriate. Follow-up with Dr. Bosch, PCP upon discharge on outpatient basis. ESTIMATED LENGTH OF STAY: Two weeks. PROGNOSIS: Rehab prognosis appears good for goal of discharging home with significant other, hopefully modified independent to supervision for ADLs and mobility skills. DIET: Carb consistent. CODE STATUS: Full code. Job ID: [id number] Dictated Date: 11/04/2016 22:02:32 Diet Consultant Date: 11/05/2016 08:22:36/janae SANDOVAL
--- NOTE | 2016-11-05 10:19 | Physical Therapy Daily Note ---
PT Daily Note-Current Subjective Patient in shower chair pre tx, agrees to PT, will be co-treating with OT for 30 min this morning. Patient has no complaints of pain. Appearance Patient in power chair post tx, is mod I with wheelchair mobility. Mental Status Patient Orientation: Normal For Age Transfers Functional [place] Measure 0=Not Assessed/NA 4=Minimal Assistance 1=Total Assistance 5=Supervision or Setup 2=Maximal Assistance 6=Modified [place] 3=Moderate Assistance 7=Complete IndependenceIRFPAI Quality Coding Scale 6 Independent with activity with or without an assistive device 5 Patient requires set up or clean up by helper. Patient completes activity by themselves 4 Supervision or touching assist (CGA). [place] provide cues , steadying assist 3 The helper provides less than half the effort to complete the activity 2 The helper provides more than half the effort to complete the activity 1 Dependent. The helper does all the effort to complete an activity 7 Patient refused to complete or attempt activity 9 The patient did not perform the activity before the current illness or injury 88 Not attempted due to Medical conditions or safety concerns Transfers (B, C, W/C) (FIM): 1 Sit to/from Stand: 1 used standing machine to stand patient for dressing and exercises Wheelchair Training Wheelchair (FIM): 6 Distance: 150'x2 Type of Wheelchair: Motorized Exercises LAQ alternating for 5 min, patient stood in the standing machine and practiced mini-squats for about 3 min each time x2, PROM to right arm in all planes ( shoulder, elbow, and wrist) Treatments transfers, wheelchair mobility, functional strengthening, PROM Assessment Current Status: Poor Progress no change in mobility PT Short Term Goals Short Term Goals Time Frame: Nov 10, 2016 Gait (FIM): 1 Gait Distance Comment: 10' Gait Level of Assist: 2 Gait Assistive Device: FWW, Walker Platform Wheelchair Distance: 150'x2 PT Fci Goals Fci Goals PT Diet Aid Goals Time Frame: Nov 24, 2016 Transfers (B,C,W/C) (FIM): 4 Sit to Lying (QC): 3 Lying-Sitting on Side/Bed(QC): 3 Sit to Stand (QC): 3 Rollin Roll Left to Right (QC): 3 Chair/[id number]-Crnhf Xfer(QC): 3 Gait (FIM): 1 Distance: 20' Walk 10 feet (QC): 2 Gait Level of Assist: 2 Gait Assistive Device: FWW, Walker Platform Wheelchair (FIM): 6 Distance: 500' Wheelchair Level of Assist: 6 Wheel 50 feet with 2 turns (QC: 6 PT Plan Problem List Problem List: Activity Tolerance, Functional Strength, Safety, Balance, Gait, Transfer, Bed Mobility, ROM Treatment/Plan Treatment Plan: Continue Plan of Care Treatment Plan: Bed Mobility, Education, Functional Activity Fady, Functional Strength, Group Therapy, Gait, Safety, Therapeutic Exercise, Transfers Treatment Duration: Nov 24, 2016 Visits Per Week: 10-11 Minutes/Day (M-F): 60-90 Minutes/Day (Sat/[place]): 15-30 Safety Risks/Education Patient Education: Transfer Techniques, Correct Positioning, W/C Management, Safety Issues Teaching Recipient: Patient Teaching Methods: Demonstration, Discussion Response to Teaching: Reinforcement Needed Time/GCodes Time In: 915 Time Out: 1015 Total Billed Treatment Time: 60 Total Billed Treatment 1 visit [facility] 10' EX 15' FA 35' Co-treated with OT for 30 min. OT worked on dressing, cleaning, right arm weight bearing while PT worked on transfers, standing, dressing, LE jennifergteileening CATALINA RUBI PT Nov 05, 2016 10:19
--- NOTE | 2016-11-05 12:53 | Occupational Ther Daily Note ---
OT Current Status-Daily Note Subjective Pt seen in room, up in power chair, agreeable to OT. Mentioned pain but not rated Appearance Alert, cooperative, flat affect Mental Status/Objective Functional [place] Measure 0=Not Assessed/NA 4=Minimal Assistance 1=Total Assistance 5=Supervision or Setup 2=Maximal Assistance 6=Modified [place] 3=Moderate Assistance 7=Complete [place] Tobin out ADL-Treatment All ADLS took longer than usual due to preparations required, including covering IVs, managing cervical collar (off to wash hair), amount of assistance required for care. Functional [place] Measure 0=Not Assessed/NA 4=Minimal Assistance 1=Total Assistance 5=Supervision or Setup 2=Maximal Assistance 6=Modified [place] 3=Moderate Assistance 7=Complete IndependenceIRFPAI Quality Coding Scale 6 Independent with activity with or without an assistive device 5 Patient requires set up or clean up by helper. Patient completes activity by themselves 4 Supervision or touching assist (CGA). [place] provide cues , steadying assist 3 The helper provides less than half the effort to complete the activity 2 The helper provides more than half the effort to complete the activity 1 Dependent. The helper does all the effort to complete an activity 7 Patient refused to complete or attempt activity 9 The patient did not perform the activity before the current illness or injury 88 Not attempted due to Medical conditions or safety concerns Bathing (FIM): 1 (Pt was able to wash part of chest with L hand. has difficulty holding on to washcloth and positioning arm due to weakness. OT washed rest of body and hair. He was able to pick feet up to position them for wahing but not able to bend forward to reach feet.) Upper Body (FIM): 2 (Able to help place hands in shirt but not pull shirt up arms, get it over head or pull it down. Limited due to weakness in UEs) Lower Body Dressing (FIM): 1 (Can pick feet up to place them in pants legs but not able to pull them up over thighs or hips. Unable to don socks and shoes. USed sit to stand lift to stand to pull pants up.) Shower Transfer(FIM): 1 (Sit to stand lift to get on and off rolling shower chair. Dependant to get shower chair into bathroom) Other Treatment pt propelled himself to gym. PT worked on LE strengthening in sit to stand lift while OT worked on R hand function and grasping. Also co-treated for LE dressing , with OT focusing on ADL and PT on LE function. Pt continues to have significant weakness in bilat hands and arms which impact his ability to manage his own self care. Education OT Patient Education: Modified ADL techniques, Purpose of tx/functional activities, Transfer techniques Teaching Recipient: Patient Teaching Methods: Discussion Response to Teaching: Verbalize Understanding OT Short Term Goals Short Term Goals Time Frame: Nov 17, 2016 Eating(FIM): 4 Grooming(FIM): 3 Upper Body Dressing(FIM): 3 Lower Body Dressing(FIM): 3 Toileting(FIM): 3 Toilet/Commode Transfer(FIM): 3 Shower Transfer(FIM): 3 Additional Short Term Goals: 2-Verbalize Understanding, 3-ImproveStrength/Fady 1=Demonstrate adherence to instructed precautions during ADL tasks. 2=Patient will verbalize/demonstrate understanding of assistive devices/ modifications for ADL. 3=Patient will improve strength/tolerance for activity to enable patient to perform ADL's. OT Alf Goals Alf Goals Time Frame: Dec 01, 2016 Eating (FIM): 5 Eating (QC): 5 Groomin Oral Hygiene (QC): 5 Bathing(FIM): 5 Shower/Bathe Self (QC): 5 Upper Body Dressing(FIM): 5 Upper Body Dressing (QC): 5 Lower Body Dressing(FIM): 5 Lower Body Dressing (QC): 5 On/Off Footwear (QC): 4 Toileting(FIM): 5 Toileting Hygiene (QC): 5 Toilet/Commode Transfer(FIM): 5 Toilet/Commode Transfer (QC): 5 Shower Transfer(FIM): 5 Additional Goals: 2-Verbalize Understanding, 3-ImproveStrength/Fady 1=Demonstrate adherence to instructed precautions during ADL tasks. 2=Patient will verbalize/demonstrate understanding of assistive devices/ modifications for ADL. 3=Patient will improve strength/tolerance for activity to enable patient to perform ADL's. OT Education/Plan Problem List/Assessment Pt would benefit from skilled OT to increase his independence in basic self care to allow him to safely return to his home to live alone and to decrease caregiver burden. Discharge Recommendations Plan/Recommendations: Continue POC Treatment Plan/Plan of Care Patient would benefit from OT for education, treatment and training to promote independence in ADL's, mobility, safety and/or upper extremity function for ADL' s. Plan of Care: ADL Retraining, Functional Mobility, Group Exercise/Act as Ind ( education, exercise, activity tolerance, functional activities, socialization), UE Funct Exercise/Act, UE Neuromus Re-Ed/Coord, W/C Management Training Treatment Duration: Dec 01, 2016 Frequency: Twice Daily Estimated Hrs Per Day: 1.5 hours per day Agreement: Yes Rehab Potential: Fair Time/GCodes Start Time: 08:15 Stop Time: 09:45 Total Time Billed (hr/min): 90 Billed Treatment Time visit, 75 minutes ADL, 15 minutes neuromotor (co-tx 30 minutes, with PT working on LE function, for transfers and standing during ADLs, and OT working on ADLs and UE function, including during transfers and ADLs THAI HOOVER OT Nov 05, 2016 12:53
--- NOTE | 2016-11-05 15:18 | Physical Therapy Daily Note ---
PT Daily Note-Current Subjective Agrees to leg exercises in bed. Concerned about redness around his scrotal area. Pain Numeric Pain Scale: 7 Location: Right Location Body Site: Shoulder (cervical spine) Pain Description: Ache Comment: Provided MHP, pt reports it felt good but didnt change his pain., Mental Status Patient Orientation: Person, Place, Time, Situation Transfers Functional [place] Measure 0=Not Assessed/NA 4=Minimal Assistance 1=Total Assistance 5=Supervision or Setup 2=Maximal Assistance 6=Modified [place] 3=Moderate Assistance 7=Complete IndependenceIRFPAI Quality Coding Scale 6 Independent with activity with or without an assistive device 5 Patient requires set up or clean up by helper. Patient completes activity by themselves 4 Supervision or touching assist (CGA). [place] provide cues , steadying assist 3 The helper provides less than half the effort to complete the activity 2 The helper provides more than half the effort to complete the activity 1 Dependent. The helper does all the effort to complete an activity 7 Patient refused to complete or attempt activity 9 The patient did not perform the activity before the current illness or injury 88 Not attempted due to Medical conditions or safety concerns Treatments LE AAROM for AP, QS, HS, hip abduct and hip extension x 15 each. Worked on scooting up in bed and rolling side to side, max to dep for positioning and moving in bed. Cleaned kaleb area and applied skin cream. Positioned with left buttock lifted with a pillow post treatment. Assessment L LE strength is less than the right. Pt needs max-dep assist for rolling and scooting in bed. PT Short Term Goals Short Term Goals Time Frame: Nov 10, 2016 Gait (FIM): 1 Gait Distance Comment: 10' Gait Level of Assist: 2 Gait Assistive Device: FWW, Walker Platform Wheelchair Distance: 150'x2 PT Sap Project Manager Goals Care Home Goals PT Care Home Goals Time Frame: Nov 24, 2016 Transfers (B,C,W/C) (FIM): 4 Sit to Lying (QC): 3 Lying-Sitting on Side/Bed(QC): 3 Sit to Stand (QC): 3 Rollin Roll Left to Right (QC): 3 Chair/[id number]-Qppsu Xfer(QC): 3 Gait (FIM): 1 Distance: 20' Walk 10 feet (QC): 2 Gait Level of Assist: 2 Gait Assistive Device: FWW, Walker Platform Wheelchair (FIM): 6 Distance: 500' Wheelchair Level of Assist: 6 Wheel 50 feet with 2 turns (QC: 6 PT Plan Problem List Problem List: Activity Tolerance, Functional Strength, Safety, Transfer, Bed Mobility Treatment/Plan Treatment Plan: Continue Plan of Care Treatment Plan: Bed Mobility, Education, Functional Activity Fady, Functional Strength, Group Therapy, Gait, Safety, Therapeutic Exercise, Transfers Treatment Duration: Nov 24, 2016 Frequency: At least 5-7 days/Wk (IRF) Estimated Hrs Per Day: 1.5 hours per day Patient and/or Family Agrees t: Yes Time/GCodes Time In: 1300 Time Out: 1330 Total Billed Treatment Time: 30 Total Billed Treatment visit EX 15 FA 15 PREMA JURADO PT Nov 05, 2016 15:18
[2016-11-05 18:11] VITALS: BP 116/72
--- NOTE | 2016-11-05 19:58 | Individualized Plan of Care ---
Individualized Plan of Care Rehab Nursing IPOC Order Admission Date Nov 03, 2016 at 10:52 Current Orders Orders Dys2 Mechanically Altered (11/05/16 Breakfast) Patient Visit (11/05/16 ) Wheelchair Mgmt/Propulsn 15min (11/05/16 ) Exercise Therap, Ea 15 Min (11/05/16 ) Functional Activities, Ea 15 (11/05/16 ) General/Regular (11/05/16 Lunch) Patient Visit (11/05/16 ) Exercise Therap, Ea 15 Min (11/05/16 ) Functional Activities, Ea 15 (11/05/16 ) Miconazole 2% Powder (Desenex Af 2% Powd (11/05/16 21:00) Insulin (Regular) Human (Humulin R (Per (11/06/16 06:00) Toilet every (bladder): (hrs): 2 hours while awake prn PT IPOC Problem List: Activity Tolerance, Functional Strength, Safety, Transfer, Bed Mobility Treatment Plan: Continue Plan of Care Bed Mobility, Education, Functional Activity Fady, Functional Strength, Group Therapy, Gait, Safety, Therapeutic Exercise, Transfers Treatment Duration: Nov 24, 2016 Frequency: Twice Daily Estimated Hrs Per Day: 1.5 hours per day OT IPOC Problems: Decreased Activ Tolerance, Decreased UE Strength, Dependent Transfers , Impaired Bed Mobility, Impaired Coordination, Impaired Funct Balance, Impaired Self-Care Skills, Restricted Funct UE ROM OT Problems Pt would benefit from skilled OT to increase his independence in basic self care to allow him to safely return to his home to live alone and to decrease caregiver burden. Plan of Care: ADL Retraining, Functional Mobility, Group Exercise/Act as Ind ( education, exercise, activity tolerance, functional activities, socialization), UE Funct Exercise/Act, UE Neuromus Re-Ed/Coord, W/C Management Training Treatment Duration: Dec 01, 2016 Frequency: Twice Daily Estimated Hrs Per Day: 1.[address] IPOC Speech Therapy Treatment Plan: Discontinue ST Physician IPOC Medical Issues being managed closely and that require the 24 hour availability of a physician:Spasticity, pain management DM HTN Dysphagia Medical Issues: Bowel/Bladder Function, DVT Prophylaxis, Falls Precautions, Fluid/Electrolyte/Nutrition Balance, Infection Protection, Pain Management, Swallowing Precautions, Wound Care, Other (List) (as per above) Brief Synthesis of Preadmission Screen, Post-Admission Evaluation, and Therapy Evaluations: 61 yo male who had been Modified Independent with a crutch but having increasing signs and symptoms of Cervical spinal stenosis with myelopathy who has had recuurent C spine surgery with orthospine for Cervical spinal stenosis with DR Atkinson Now referred back to [facility] to complet rehab program Patient has significant weaknees RUE>LUE with a decline in functional [place] for adls and mobility skills.Lives in [facility] with estranged spouse Currenly unemployed Hospitalist service following patient Has various comorbidities as outlined above. Medical Prognosis: good Anticipated Length of Stay: 12/01/16 Rehab Goals Modifeid Independent to supervision for adl and mobility skills Anticipated discharge destinat: Home to old [facility] with SO( estranged ) and [facility] JOSEY SALINAS MD Nov 05, 2016 19:58
[2016-11-05] MEDS: IRBESARTAN 150 MG (AVAPRO) TAB PO SCH (20:24)
[2016-11-05] MEDS: MICONAZOLE 2% POWDER (DESENEX AF) 90 GM TOP SCH (21:00)
[2016-11-06] MEDS: oxyCODONE/APAP 10/325MG (PERCOCET 10) TABLET PO PRN ×5 (04:17→23:38)
[2016-11-06 05:00] VITALS: BP 135/88
[2016-11-06] MEDS: MULTIVIT W/MINERALS TAB (THERAGRAN M) PO SCH (07:28)
[2016-11-06] MEDS: metFORMIN 500 MG (GLUCOPHAGE) TAB PO SCH ×2 (07:28→17:11)
[2016-11-06] MEDS: inSUlin (REGULAR) HUMAN 1 UNIT/0.01 ML (CHARGE PER UNIT) SC SCH ×3 (07:29→17:11)
[2016-11-06] MEDS: HYDROCHLOROTHIAZIDE 25 MG (HCTZ) TAB PO SCH (08:24)
[2016-11-06] MEDS: SENNA W/DOCUSATE (SENOKOT S) TABLET PO SCH ×2 (08:24→20:10)
[2016-11-06] MEDS: amLODIPine 5 MG (NORVASC) TAB PO SCH (08:24)
[2016-11-06] MEDS: POLYETHYLENE GLYCOL 17 GM (MIRALAX) PACK PO SCH ×2 (08:28→18:58)
[2016-11-06] MEDS: LACTULOSE SYRUP 10GM/15ML (ENULOSE) 30ML UDC PO SCH ×2 (08:28→20:01)
[2016-11-06] MEDS: MICONAZOLE 2% POWDER (DESENEX AF) 90 GM TOP SCH ×2 (08:32→20:10)
--- NOTE | 2016-11-06 09:13 | PM & R (SOAP) Progress Note ---
Subjective Time Seen by Provider: 07:55 Subjective/Events-last exam Patient was seen in his room this AM RN assisting with feeding Patient has isotoner glove to decrease edema rt hand Patient max assist for transfers. Accucheks down yesterday Dr Duvall has adjusted insulin regimen Patient having BMS.Spasms improved Pain control adequate Objective Exam Last Set of Vital Signs Vital Signs Date Time Temp Pulse Resp B/P (MAP) Pulse Ox O2 Delivery O2 Flow Rate FiO2 11/06/16 05:00 98.0 98 18 135/88 97 Room Air Capillary Refill : I&O Intake and Output 11/06/16 00:00 Intake Total 1500 ml Output Total 1650 ml Balance -150 ml Intake Oral 1500 ml Output Urine Total 1650 ml # Voids 1 # Bowel Movements 1 General: Alert, Oriented X3, Cooperative, No Acute Distress HEENT: Atraumatic, PERRLA, EOMI, Mucous Memb Moist/[place] Neck: Supple, Other (inciasion healing well C Collar in place) Lungs: Clear to Auscultation Heart: Regular Rate Abdomen: Normal Bowel Sounds Extremities: Other (trace edema rt hand) Neuro: Other (2-3 strength rt UE Numbness rt hand) Results Lab Laboratory Tests 11/03/16 17:48: Glucometer 119H 11/04/16 00:13: Glucometer 123H 11/04/16 04:45: Glucometer 126H 11/04/16 10:58: Glucometer 97 11/04/16 16:00: Glucometer 82 11/04/16 20:13: Glucometer 93 11/05/16 05:24: Glucometer 106 11/05/16 10:54: Glucometer 150H 11/05/16 16:10: Glucometer 42*L 11/05/16 16:45: Glucometer 85 11/05/16 20:14: Glucometer 80 11/06/16 04:25: Glucometer 128H Assessment/Plan Assessment Cervical spine stenosis with myelopathy s/p decompression DR Atkinson Dysphagia improved diet advanced- to regular consistency discussed with RN AMY on cpap HTN controlled DM with episode of hypoglycemia Dr duvall has adjusted insulin HLP Plan Continue PT/OT/Pain management Team Conference held 11-04-16 See report for full functional update and POC F/U with Hospitalist and DR Atkinson as per their schedule Trend Accucheks and adjust insulin as needed JOSEY SALINAS MD Nov 06, 2016 09:13
--- NOTE | 2016-11-06 10:53 | Occupational Ther Daily Note ---
OT Current Status-Daily Note Subjective Pt seen in room, up in bed, agreeable to OT. Had just gotten pain meds. Appearance Alert, cooperative, smiled several times Mental Status/Objective Functional [place] Measure 0=Not Assessed/NA 4=Minimal Assistance 1=Total Assistance 5=Supervision or Setup 2=Maximal Assistance 6=Modified [place] 3=Moderate Assistance 7=Complete [place] ADL-Treatment While pt was in bed, underarms and kaleb/bottom were washed with bath packs. Pt was able to help position legs for cleaning but required two people to roll him over on his side to get backside. Nursing applied Desinex to kaleb and bottom. Pt required max assist to transition to sitting EOB but, once there, was able to maintain position on his own. Transferred with sit to stand lift to power chair. He was able to maneuver power chair to accessible bathroom and position chair at sink. Also able to take himself back to his room. In room, pt worked on bilat shoulder shrugs and shoulder elevation to help strengthen them but also for pain relief since he reports pain in his shoulders. He sits with forward head and shoulders but can adjust posture with cues. Pt left up in power chair, call light on table, all needs met. Functional Worth Measure 0=Not Assessed/NA 4=Minimal Assistance 1=Total Assistance 5=Supervision or Setup 2=Maximal Assistance 6=Modified [place] 3=Moderate Assistance 7=Complete IndependenceIRFPAI Quality Coding Scale 6 Independent with activity with or without an assistive device 5 Patient requires set up or clean up by helper. Patient completes activity by themselves 4 Supervision or touching assist (CGA). [place] provide cues , steadying assist 3 The helper provides less than half the effort to complete the activity 2 The helper provides more than half the effort to complete the activity 1 Dependent. The helper does all the effort to complete an activity 7 Patient refused to complete or attempt activity 9 The patient did not perform the activity before the current illness or injury 88 Not attempted due to Medical conditions or safety concerns Grooming (FIM): 2 (Up in w/c, at sink where arms are supported on sink or armrest of power chair, was able to shave about half of L side of face. has difficulty holding on to razor, even with built up handle. Able to brush most of his teeth with electric toothbrush but needed help to hold on to toothbrush and turn it. Unable to brush hair, wash more than about 1/4 of his face) Lower Body Dressing (FIM): 1 (Was able to lift feet to get them into his pants but unable to pull them up over legs or hips. Unable to put socks or shoes on. Sit to stand lift to pull pants up.) Education OT Patient Education: Modified ADL techniques, Progress toward Goal/Update tx plan Teaching Recipient: Patient Teaching Methods: Demonstration Response to Teaching: Return Demonstration, Reinforcement Needed OT Short Term Goals Short Term Goals Time Frame: Nov 17, 2016 Eating(FIM): 4 Grooming(FIM): 3 Upper Body Dressing(FIM): 3 Lower Body Dressing(FIM): 3 Toileting(FIM): 3 Toilet/Commode Transfer(FIM): 3 Shower Transfer(FIM): 3 Additional Short Term Goals: 2-Verbalize Understanding, 3-ImproveStrength/Fady 1=Demonstrate adherence to instructed precautions during ADL tasks. 2=Patient will verbalize/demonstrate understanding of assistive devices/ modifications for ADL. 3=Patient will improve strength/tolerance for activity to enable patient to perform ADL's. OT Fci Goals Fci Goals Time Frame: Dec 01, 2016 Eating (FIM): 5 Eating (QC): 5 Groomin Oral Hygiene (QC): 5 Bathing(FIM): 5 Shower/Bathe Self (QC): 5 Upper Body Dressing(FIM): 5 Upper Body Dressing (QC): 5 Lower Body Dressing(FIM): 5 Lower Body Dressing (QC): 5 On/Off Footwear (QC): 4 Toileting(FIM): 5 Toileting Hygiene (QC): 5 Toilet/Commode Transfer(FIM): 5 Toilet/Commode Transfer (QC): 5 Shower Transfer(FIM): 5 Additional Goals: 2-Verbalize Understanding, 3-ImproveStrength/Fady 1=Demonstrate adherence to instructed precautions during ADL tasks. 2=Patient will verbalize/demonstrate understanding of assistive devices/ modifications for ADL. 3=Patient will improve strength/tolerance for activity to enable patient to perform ADL's. OT Education/Plan Problem List/Assessment Pt would benefit from skilled OT to increase his independence in basic self care to allow him to safely return to his home to live alone and to decrease caregiver burden. Discharge Recommendations Plan/Recommendations: Continue POC Treatment Plan/Plan of Care Patient would benefit from OT for education, treatment and training to promote independence in ADL's, mobility, safety and/or upper extremity function for ADL' s. Plan of Care: ADL Retraining, Functional Mobility, Group Exercise/Act as Ind ( education, exercise, activity tolerance, functional activities, socialization), UE Funct Exercise/Act, UE Neuromus Re-Ed/Coord, W/C Management Training Treatment Duration: Dec 01, 2016 Frequency: Twice Daily Estimated Hrs Per Day: 1.5 hours per day Agreement: Yes Rehab Potential: Fair Time/GCodes Start Time: 08:30 Stop Time: 09:30 Total Time Billed (hr/min): 60 Billed Treatment Time visit, 55 minutes ADL, 5 minutes exercise THAI HOOVER OT Nov 06, 2016 10:53
--- NOTE | 2016-11-06 10:56 | Physical Therapy Daily Note ---
PT Daily Note-Current Subjective Patient in wheelchair pre tx, agrees to PT, has pain of 4/10. Patient states he is very tired today. Appearance Patient in power chair post tx in his room, he is mod I with wheelchair mobility. Mental Status Patient Orientation: Normal For Age cervical collar Transfers Functional [place] Measure 0=Not Assessed/NA 4=Minimal Assistance 1=Total Assistance 5=Supervision or Setup 2=Maximal Assistance 6=Modified [place] 3=Moderate Assistance 7=Complete IndependenceIRFPAI Quality Coding Scale 6 Independent with activity with or without an assistive device 5 Patient requires set up or clean up by helper. Patient completes activity by themselves 4 Supervision or touching assist (CGA). [place] provide cues , steadying assist 3 The helper provides less than half the effort to complete the activity 2 The helper provides more than half the effort to complete the activity 1 Dependent. The helper does all the effort to complete an activity 7 Patient refused to complete or attempt activity 9 The patient did not perform the activity before the current illness or injury 88 Not attempted due to Medical conditions or safety concerns Transfers (B, C, W/C) (FIM): 2 Sit to/from Stand: 2 Bed to/from Chair: 2 Patient a harder transfer today, more assist needed for sit to stand. Exercises Seated Therapy Exercises: Ankle pumps, Hip abd/add Seated Reps: 20 LAQ alternating for 5 min with 2# ankle weights NuStep Minutes: 15 NuStep Workload: 4 Treatments transfers (patient had to perform several stand pivot transfers), wheelchair mobility, functional strengthening Assessment Current Status: Poor Progress no change in mobility PT Short Term Goals Short Term Goals Time Frame: Nov 10, 2016 Gait (FIM): 1 Gait Distance Comment: 10' Gait Level of Assist: 2 Gait Assistive Device: FWW, Walker Platform Wheelchair Distance: 150'x2 PT Shelter Goals Shelter Goals PT Shelter Goals Time Frame: Nov 24, 2016 Transfers (B,C,W/C) (FIM): 4 Sit to Lying (QC): 3 Lying-Sitting on Side/Bed(QC): 3 Sit to Stand (QC): 3 Rollin Roll Left to Right (QC): 3 Chair/Mbv-jm-Yclsl Xfer(QC): 3 Gait (FIM): 1 Distance: 20' Walk 10 feet (QC): 2 Gait Level of Assist: 2 Gait Assistive Device: FWW, Walker Platform Wheelchair (FIM): 6 Distance: 500' Wheelchair Level of Assist: 6 Wheel 50 feet with 2 turns (QC: 6 PT Plan Problem List Problem List: Activity Tolerance, Functional Strength, Safety, Balance, Gait, Transfer, Bed Mobility, ROM Treatment/Plan Treatment Plan: Continue Plan of Care Treatment Plan: Bed Mobility, Education, Functional Activity Fady, Functional Strength, Group Therapy, Gait, Safety, Therapeutic Exercise, Transfers Treatment Duration: Nov 24, 2016 Frequency: Twice Daily Estimated Hrs Per Day: 1.5 hours per day Patient and/or Family Agrees t: Yes Safety Risks/Education Patient Education: Transfer Techniques, Correct Positioning, Disease Process, Safety Issues Teaching Recipient: Patient Teaching Methods: Demonstration, Discussion Response to Teaching: Reinforcement Needed Time/GCodes Time In: 1000 Time Out: 1100 Total Billed Treatment Time: 60 Total Billed Treatment 1 visit EX 30' [facility] 10' FA 20' CATALINA RUBI PT Nov 06, 2016 10:56
--- NOTE | 2016-11-06 11:01 | Progress Note-Hospitalist ---
Progress Note Progress Notes/Assess & Plan Date Seen 11/06/16 Time Seen by Provider: 10:30 Diagonsis/Assessment & Plan sanipractic physician: NovoLog 10 before meals, had a dose this morning. Pt is due for recheck soon Pts ex- brings food for him. I suggested that she continue doing this if he feels that he cannot eat the food from [facility]. Patient Interview: Pt was in gym upon interview Physical exam stable. Lungs sound perfect. Insulin was discussed and I lowered his does Pt states that he is having a hard time eating what is on his menu. AFVSS, pleasant, O x 3, improved RRR, CTAB improved extremity movement and strength No edema Assessment: Status post cervical spine surgery stage II of 2 stage surgery for spinal cord compression POD # 7 Dysphagia due to edema from neck surgery s/p NPO but now ok with nutrition intake PO Diabetes mellitus Obstructive sleep apnea compliant with treatment Hypertension Hyperlipidemia Status post narcotic bowel requiring soapsuds enema for disimpaction 2 and half weeks ago maintained on regimen Plan: Restarted home meds AC/HS accuchecks Administer lower dose of NovoLog 10 units AC Food from outside [facility] ok Scribed by Michelle Garcia under the direct supervision of Dr. Duvall. KEANU DUVALL DO Nov 06, 2016 11:01
--- NOTE | 2016-11-06 14:20 | Therapy Group Daily Note ---
Therapy Daily Group Note Other/Notes Each patient participated in group therapy in the common area of the rehab floor. Each patient ambulated or was transported to the common area to sit with the other patients. Then, each patient had to introduce themselves, state where they were from and answer a group question that involves memory and socialization. Then, each patient had to perform several upper extremity and shoulder exercises. Finally, patient had to participate in an activity/game that involved UE ROM, digital manipulation, memory, and problem solving. At the end of group therapy, each patient ambulated or was transported back to their room and put in bed or chair with nurse call, phone, tray, all needs met. Start Time: 13:00 Stop Time: 14:15 Total Billed Treatment Time: 75 Total Billed Treatment 1 visit GRP 75' CATALINA RUBI PT Nov 06, 2016 14:20
[2016-11-06 18:14] VITALS: BP 112/71
[2016-11-06] MEDS: IRBESARTAN 150 MG (AVAPRO) TAB PO SCH (20:10)
[2016-11-06] MEDS: MENTHOL/ZINC OXIDE (CALMOSEPTINE) 113 GM TUBE TOP SCH (20:11)
[2016-11-07] MEDS: oxyCODONE/APAP 10/325MG (PERCOCET 10) TABLET PO PRN ×4 (03:55→20:13)
[2016-11-07 05:07] VITALS: BP 117/73
[2016-11-07] MEDS: metFORMIN 500 MG (GLUCOPHAGE) TAB PO SCH ×2 (06:54→16:35)
[2016-11-07] MEDS: MULTIVIT W/MINERALS TAB (THERAGRAN M) PO SCH (06:54)
[2016-11-07] MEDS: LACTULOSE SYRUP 10GM/15ML (ENULOSE) 30ML UDC PO SCH ×2 (08:02→20:14)
[2016-11-07] MEDS: MENTHOL/ZINC OXIDE (CALMOSEPTINE) 113 GM TUBE TOP SCH ×2 (08:03→20:19)
[2016-11-07] MEDS: MICONAZOLE 2% POWDER (DESENEX AF) 90 GM TOP SCH ×2 (08:03→20:14)
[2016-11-07] MEDS: amLODIPine 5 MG (NORVASC) TAB PO SCH (08:03)
[2016-11-07] MEDS: SENNA W/DOCUSATE (SENOKOT S) TABLET PO SCH ×2 (08:03→20:14)
[2016-11-07] MEDS: HYDROCHLOROTHIAZIDE 25 MG (HCTZ) TAB PO SCH (08:03)
[2016-11-07] MEDS: POLYETHYLENE GLYCOL 17 GM (MIRALAX) PACK PO SCH ×2 (08:04→20:10)
--- NOTE | 2016-11-07 09:07 | Physical Therapy Daily Note ---
PT Daily Note-Current Subjective Pt laying supine in bed upon arrival. Pt agrees to Pt and reports no pain. Pain Location: No Pain Reported Mental Status Patient Orientation: Person, Place, Situation Attachments: Other-See Comments (Cervical Collar) Transfers Functional [place] Measure 0=Not Assessed/NA 4=Minimal Assistance 1=Total Assistance 5=Supervision or Setup 2=Maximal Assistance 6=Modified [place] 3=Moderate Assistance 7=Complete IndependenceIRFPAI Quality Coding Scale 6 Independent with activity with or without an assistive device 5 Patient requires set up or clean up by helper. Patient completes activity by themselves 4 Supervision or touching assist (CGA). [place] provide cues , steadying assist 3 The helper provides less than half the effort to complete the activity 2 The helper provides more than half the effort to complete the activity 1 Dependent. The helper does all the effort to complete an activity 7 Patient refused to complete or attempt activity 9 The patient did not perform the activity before the current illness or injury 88 Not attempted due to Medical conditions or safety concerns Scootin Chair/Nke-un-Kkfcx Xfer(QC): 3 Bed to/from Chair: 3 PT used Sit to Stand Lift to transfer to [facility]. Weight Bearing Weight Bearing Restriction: Full Weight Bearing Location Restriction: LE Bilateral Wheelchair Training Does the Pt Use a Wheelchair?: Yes Type of Wheelchair: Motorized Treatments Pt is repositioned in bed before deciding that he would like to transfer to [facility]. Pt transferred from supine to EOB at Mod A by using bed pads to scoot. Pt transferred from EOB to standing using Sit to Stand Lift to transfer to [facility]. Pt is resting in [facility] at end of tx with all needs met and call light attached to pt's shirt w/in pt's reach. Assessment Pt tolerates transfer well although still lacks both UE & LE strength to assist anymore than he is currently. PT Short Term Goals Short Term Goals Time Frame: Nov 10, 2016 Gait (FIM): 1 Gait Distance Comment: 10' Gait Level of Assist: 2 Gait Assistive Device: FWW, Walker Platform Wheelchair Distance: 150'x2 PT Care Home Goals Care Home Goals PT [place] Goals Time Frame: Nov 24, 2016 Transfers (B,C,W/C) (FIM): 4 Sit to Lying (QC): 3 Lying-Sitting on Side/Bed(QC): 3 Sit to Stand (QC): 3 Rollin Roll Left to Right (QC): 3 Chair/Wux-eq-Ewexn Xfer(QC): 3 Gait (FIM): 1 Distance: 20' Walk 10 feet (QC): 2 Gait Level of Assist: 2 Gait Assistive Device: FWW, Walker Platform Wheelchair (FIM): 6 Distance: 500' Wheelchair Level of Assist: 6 Wheel 50 feet with 2 turns (QC: 6 PT Plan Problem List Problem List: Activity Tolerance, Functional Strength, Safety, Balance, Gait, Transfer, Bed Mobility Treatment/Plan Treatment Plan: Continue Plan of Care Treatment Plan: Bed Mobility, Education, Functional Activity Fady, Functional Strength, Group Therapy, Gait, Safety, Therapeutic Exercise, Transfers Treatment Duration: Nov 24, 2016 Frequency: At least 5-7 days/Wk (IRF) Estimated Hrs Per Day: 2 hours per day Patient and/or Family Agrees t: Yes Safety Risks/Education Patient Education: Gait Training, Transfer Techniques, Correct Positioning, Safety Issues Teaching Recipient: Patient Teaching Methods: Discussion Response to Teaching: Verbalize Understanding Time/GCodes Time In: 820 Time Out: 845 Total Billed Treatment Time: 25 Total Billed Treatment visit, FA x2 (25m) GILA CRYSTAL PTA Nov 07, 2016 09:07
[2016-11-07] MEDS: inSUlin (REGULAR) HUMAN 1 UNIT/0.01 ML (CHARGE PER UNIT) SC SCH ×3 (09:18→14:34)
[2016-11-07] MEDS: DIAZEPAM 5 MG (VALIUM) TABLET PO PRN (12:11)
[2016-11-07 18:00] VITALS: BP 131/73
[2016-11-07] MEDS: IRBESARTAN 150 MG (AVAPRO) TAB PO SCH (20:14)
[2016-11-08] MEDS: oxyCODONE/APAP 10/325MG (PERCOCET 10) TABLET PO PRN ×5 (01:02→22:36)
[2016-11-08 05:18] VITALS: BP 132/88
[2016-11-08] MEDS: metFORMIN 500 MG (GLUCOPHAGE) TAB PO SCH ×2 (06:49→18:27)
[2016-11-08] MEDS: MULTIVIT W/MINERALS TAB (THERAGRAN M) PO SCH (06:49)
[2016-11-08] MEDS: amLODIPine 5 MG (NORVASC) TAB PO SCH (08:06)
[2016-11-08] MEDS: inSUlin (REGULAR) HUMAN 1 UNIT/0.01 ML (CHARGE PER UNIT) SC SCH ×3 (08:06→18:29)
[2016-11-08] MEDS: HYDROCHLOROTHIAZIDE 25 MG (HCTZ) TAB PO SCH (08:06)
[2016-11-08] MEDS: SENNA W/DOCUSATE (SENOKOT S) TABLET PO SCH ×2 (08:06→20:00)
[2016-11-08] MEDS: LACTULOSE SYRUP 10GM/15ML (ENULOSE) 30ML UDC PO SCH ×3 (08:06→20:00)
[2016-11-08] MEDS: MENTHOL/ZINC OXIDE (CALMOSEPTINE) 113 GM TUBE TOP SCH ×2 (08:07→20:00)
[2016-11-08] MEDS: POLYETHYLENE GLYCOL 17 GM (MIRALAX) PACK PO SCH ×2 (08:07→20:00)
[2016-11-08] MEDS: MICONAZOLE 2% POWDER (DESENEX AF) 90 GM TOP SCH ×2 (08:08→20:01)
[2016-11-08] MEDS: DIAZEPAM 5 MG (VALIUM) TABLET PO PRN ×2 (14:49→22:38)
[2016-11-08 18:01] VITALS: BP 157/90
[2016-11-08] MEDS: IRBESARTAN 150 MG (AVAPRO) TAB PO SCH (20:01)
[2016-11-09] MEDS: oxyCODONE/APAP 10/325MG (PERCOCET 10) TABLET PO PRN ×3 (02:28→10:51)
[2016-11-09 05:00] VITALS: BP 159/88
[2016-11-09] MEDS: metFORMIN 500 MG (GLUCOPHAGE) TAB PO SCH ×2 (06:20→18:40)
[2016-11-09] MEDS: MULTIVIT W/MINERALS TAB (THERAGRAN M) PO SCH (06:20)
[2016-11-09] MEDS: inSUlin (REGULAR) HUMAN 1 UNIT/0.01 ML (CHARGE PER UNIT) SC SCH ×3 (07:29→18:40)
[2016-11-09] MEDS: LACTULOSE SYRUP 10GM/15ML (ENULOSE) 30ML UDC PO SCH ×2 (08:44→21:12)
[2016-11-09] MEDS: SENNA W/DOCUSATE (SENOKOT S) TABLET PO SCH ×2 (08:45→21:11)
[2016-11-09] MEDS: amLODIPine 5 MG (NORVASC) TAB PO SCH (08:45)
[2016-11-09] MEDS: HYDROCHLOROTHIAZIDE 25 MG (HCTZ) TAB PO SCH (08:45)
[2016-11-09] MEDS: MICONAZOLE 2% POWDER (DESENEX AF) 90 GM TOP SCH ×2 (08:45→21:12)
[2016-11-09] MEDS: POLYETHYLENE GLYCOL 17 GM (MIRALAX) PACK PO SCH ×2 (08:45→21:11)
[2016-11-09] MEDS: MENTHOL/ZINC OXIDE (CALMOSEPTINE) 113 GM TUBE TOP SCH ×2 (08:45→21:12)
[2016-11-09] MEDS: DIAZEPAM 5 MG (VALIUM) TABLET PO PRN (09:00)
--- NOTE | 2016-11-09 10:47 | Occupational Ther Daily Note ---
OT Current Status-Daily Note Subjective Pt seen in room, up in bed, agreeable to OT. Pain not specifically mentioned. Appearance Alert, cooperative. Jokes a little Mental Status/Objective Functional [place] Measure 0=Not Assessed/NA 4=Minimal Assistance 1=Total Assistance 5=Supervision or Setup 2=Maximal Assistance 6=Modified [place] 3=Moderate Assistance 7=Complete [place] ADL-Treatment Pt said he would like to shave but did not want a shower. Functional [place] Measure 0=Not Assessed/NA 4=Minimal Assistance 1=Total Assistance 5=Supervision or Setup 2=Maximal Assistance 6=Modified [place] 3=Moderate Assistance 7=Complete IndependenceIRFPAI Quality Coding Scale 6 Independent with activity with or without an assistive device 5 Patient requires set up or clean up by helper. Patient completes activity by themselves 4 Supervision or touching assist (CGA). [place] provide cues , steadying assist 3 The helper provides less than half the effort to complete the activity 2 The helper provides more than half the effort to complete the activity 1 Dependent. The helper does all the effort to complete an activity 7 Patient refused to complete or attempt activity 9 The patient did not perform the activity before the current illness or injury 88 Not attempted due to Medical conditions or safety concerns Grooming (FIM): 1 (Pt was able to wash L half of face and had difficulty holding on to washcloth) Upper Body (FIM): 1 (Able to help place hands in shirt but not place in sleeve openings, pull it up over arms, get shirt over head or pull it down) Lower Body Dressing (FIM): 1 (Can pick feet up to put them inpants but not pull pants up over legs or hips. Unable to get socks off/on or shoes on. Sit to stand lift to pull pants up) Toileting (FIM): 1 (Unable to manage clothing or hygiene. On BSC. Sit to stand lift for clothing management) Transfers (B, C, W/C) (FIM): 1 (Can "walk" legs over to EOB but max assist to pull him to sitting EOB. Can maintain balance at EOB. Sit to stand lift to transfers to BSC and power chair) Toilet/Commode Transfer (FIM): 1 (Sit to stand lift to BSC) Other Treatment Once up in power chair, worked on L and R hand active wrist extension, finger flexion and pron/sup, to get more natural coordination between movements.He is able to actively extend wrists against gravity but not through full range. Can flex all fingers but not in full range. Edema decreased R hand. Pt left up in power chair, all needs met. Education OT Patient Education: Progress toward Goal/Update tx plan, Purpose of tx/ functional activities Teaching Recipient: Patient Teaching Methods: Demonstration, Discussion Response to Teaching: Verbalize Understanding, Return Demonstration, Reinforcement Needed OT Short Term Goals Short Term Goals Time Frame: Nov 17, 2016 Eating(FIM): 4 Grooming(FIM): 3 Upper Body Dressing(FIM): 3 Lower Body Dressing(FIM): 3 Toileting(FIM): 3 Toilet/Commode Transfer(FIM): 3 Shower Transfer(FIM): 3 Additional Short Term Goals: 2-Verbalize Understanding, 3-ImproveStrength/Fady 1=Demonstrate adherence to instructed precautions during ADL tasks. 2=Patient will verbalize/demonstrate understanding of assistive devices/ modifications for ADL. 3=Patient will improve strength/tolerance for activity to enable patient to perform ADL's. OT Usp Goals Fraud Investigator Goals Time Frame: Dec 01, 2016 Eating (FIM): 5 Eating (QC): 5 Groomin Oral Hygiene (QC): 5 Bathing(FIM): 5 Shower/Bathe Self (QC): 5 Upper Body Dressing(FIM): 5 Upper Body Dressing (QC): 5 Lower Body Dressing(FIM): 5 Lower Body Dressing (QC): 5 On/Off Footwear (QC): 4 Toileting(FIM): 5 Toileting Hygiene (QC): 5 Toilet/Commode Transfer(FIM): 5 Toilet/Commode Transfer (QC): 5 Shower Transfer(FIM): 5 Additional Goals: 2-Verbalize Understanding, 3-ImproveStrength/Fady 1=Demonstrate adherence to instructed precautions during ADL tasks. 2=Patient will verbalize/demonstrate understanding of assistive devices/ modifications for ADL. 3=Patient will improve strength/tolerance for activity to enable patient to perform ADL's. OT Education/Plan Problem List/Assessment Pt would benefit from skilled OT to increase his independence in basic self care to allow him to safely return to his home to live alone and to decrease caregiver burden. Discharge Recommendations Plan/Recommendations: Continue POC Treatment Plan/Plan of Care Patient would benefit from OT for education, treatment and training to promote independence in ADL's, mobility, safety and/or upper extremity function for ADL' s. Plan of Care: ADL Retraining, Functional Mobility, Group Exercise/Act as Ind ( education, exercise, activity tolerance, functional activities, socialization), UE Funct Exercise/Act, UE Neuromus Re-Ed/Coord, W/C Management Training Treatment Duration: Dec 01, 2016 Frequency: Twice Daily Estimated Hrs Per Day: 1.5 hours per day Agreement: Yes Rehab Potential: Fair Time/GCodes Start Time: 08:30 Stop Time: 09:30 Total Time Billed (hr/min): 60 Billed Treatment Time visit, 50 minutes ADL, 10 minutes neuromotor THAI HOOVER OT Nov 09, 2016 10:47
--- NOTE | 2016-11-09 10:57 | Physical Therapy Daily Note ---
PT Daily Note-Current Subjective Patient in power chair pre tx, agrees to PT, has pain of 7/10 in shoulder and hip. Appearance Patient in power chair post tx, he is mod I with wheelchair mobility. Mental Status Patient Orientation: Normal For Age cervical collar Transfers Functional [place] Measure 0=Not Assessed/NA 4=Minimal Assistance 1=Total Assistance 5=Supervision or Setup 2=Maximal Assistance 6=Modified [place] 3=Moderate Assistance 7=Complete IndependenceIRFPAI Quality Coding Scale 6 Independent with activity with or without an assistive device 5 Patient requires set up or clean up by helper. Patient completes activity by themselves 4 Supervision or touching assist (CGA). [place] provide cues , steadying assist 3 The helper provides less than half the effort to complete the activity 2 The helper provides more than half the effort to complete the activity 1 Dependent. The helper does all the effort to complete an activity 7 Patient refused to complete or attempt activity 9 The patient did not perform the activity before the current illness or injury 88 Not attempted due to Medical conditions or safety concerns Transfers (B, C, W/C) (FIM): 2 Scootin Rollin Supine to/from Sit: 2 Sit to/from Stand: 2 Bed to/from Chair: 2 max assist for stand pivot, patient cannot use arms much to assist Gait Training Gait (FIM): 1 Patient ambulated 20' and then 40' using the [employer]ov[employer] weight supported gait system. Patient has to lay down and perform a bridge (with therapist assist) in order to get the sling on, then sit and attach the sling to the frame. Exercises Seated Therapy Exercises: Ankle pumps, Hip flexion, Hip abd/add Seated Reps: 20 LAQ alternating for 5 min with 2# ankle weights Treatments bed mobility and transfers, ambulation, functional strengthening Assessment Current Status: Poor Progress no change in mobility, more pain today, nurse gave him pain meds PT Short Term Goals Short Term Goals Time Frame: Nov 10, 2016 Gait (FIM): 1 Gait Distance Comment: 10' Gait Level of Assist: 2 Gait Assistive Device: FWW, Walker Platform Wheelchair Distance: 150'x2 PT Nursing Scheduler Goals Nursing Scheduler Goals PT Retirement Goals Time Frame: Nov 24, 2016 Transfers (B,C,W/C) (FIM): 4 Sit to Lying (QC): 3 Lying-Sitting on Side/Bed(QC): 3 Sit to Stand (QC): 3 Rollin Roll Left to Right (QC): 3 Chair/Hqy-pk-Urqxj Xfer(QC): 3 Gait (FIM): 1 Distance: 20' Walk 10 feet (QC): 2 Gait Level of Assist: 2 Gait Assistive Device: FWW, Walker Platform Wheelchair (FIM): 6 Distance: 500' Wheelchair Level of Assist: 6 Wheel 50 feet with 2 turns (QC: 6 PT Plan Problem List Problem List: Activity Tolerance, Functional Strength, Safety, Balance, Gait, Transfer, Bed Mobility, ROM Treatment/Plan Treatment Plan: Continue Plan of Care Treatment Plan: Bed Mobility, Education, Functional Activity Fady, Functional Strength, Group Therapy, Gait, Safety, Therapeutic Exercise, Transfers Treatment Duration: Nov 24, 2016 Frequency: At least 5-7 days/Wk (IRF) Estimated Hrs Per Day: 2 hours per day Patient and/or Family Agrees t: Yes Safety Risks/Education Patient Education: Gait Training, Transfer Techniques, Correct Positioning, Safety Issues Teaching Recipient: Patient Teaching Methods: Demonstration, Discussion Response to Teaching: Reinforcement Needed Time/GCodes Time In: 1000 Time Out: 1100 Total Billed Treatment Time: 60 Total Billed Treatment 1 visit GT 30' FA 15' EX 15' CATALINA RUBI PT Nov 09, 2016 10:57
--- NOTE | 2016-11-09 11:54 | Occupational Ther Daily Note ---
OT Current Status-Daily Note Subjective Pt seen in room, up in power chair, agreeable to OT. Pt seems drowsy and has flat affect. Mental Status/Objective Functional [place] Measure 0=Not Assessed/NA 4=Minimal Assistance 1=Total Assistance 5=Supervision or Setup 2=Maximal Assistance 6=Modified [place] 3=Moderate Assistance 7=Complete [place] ADL-Treatment Functional [place] Measure 0=Not Assessed/NA 4=Minimal Assistance 1=Total Assistance 5=Supervision or Setup 2=Maximal Assistance 6=Modified [place] 3=Moderate Assistance 7=Complete IndependenceIRFPAI Quality Coding Scale 6 Independent with activity with or without an assistive device 5 Patient requires set up or clean up by helper. Patient completes activity by themselves 4 Supervision or touching assist (CGA). [place] provide cues , steadying assist 3 The helper provides less than half the effort to complete the activity 2 The helper provides more than half the effort to complete the activity 1 Dependent. The helper does all the effort to complete an activity 7 Patient refused to complete or attempt activity 9 The patient did not perform the activity before the current illness or injury 88 Not attempted due to Medical conditions or safety concerns Other Treatment Pt maneuvered chair to gym. Worked on active and active assistive muscle strength and coordination, using several skilled facilitation techniques to increase active range and strength. Also worked on stretches and contract-relax for shoulder elevation, protraction, retraction and depression. Pt unable to fully flex R elbow against gravity. Unable to make a complete fist either hand and passive finger flexion is uncomfortable on R hand. Isotoner glove removed and edema has decreased R hand. No reddened areas except scab at base of thumb. Facilitation and strengthening to help increase functional use of hands and UEs so that he can assist more with self care. Pt returned to room and assisted nursing with getting him back into bed after tx, using sit to stand lift. All needs met. Education OT Patient Education: Progress toward Goal/Update tx plan, Purpose of tx/ functional activities Teaching Recipient: Patient Teaching Methods: Discussion Response to Teaching: Verbalize Understanding OT Short Term Goals Short Term Goals Time Frame: Nov 17, 2016 Eating(FIM): 4 Grooming(FIM): 3 Upper Body Dressing(FIM): 3 Lower Body Dressing(FIM): 3 Toileting(FIM): 3 Toilet/Commode Transfer(FIM): 3 Shower Transfer(FIM): 3 Additional Short Term Goals: 2-Verbalize Understanding, 3-ImproveStrength/Fady 1=Demonstrate adherence to instructed precautions during ADL tasks. 2=Patient will verbalize/demonstrate understanding of assistive devices/ modifications for ADL. 3=Patient will improve strength/tolerance for activity to enable patient to perform ADL's. OT Prison Goals Manual Plate Filler Goals Time Frame: Dec 01, 2016 Eating (FIM): 5 Eating (QC): 5 Groomin Oral Hygiene (QC): 5 Bathing(FIM): 5 Shower/Bathe Self (QC): 5 Upper Body Dressing(FIM): 5 Upper Body Dressing (QC): 5 Lower Body Dressing(FIM): 5 Lower Body Dressing (QC): 5 On/Off Footwear (QC): 4 Toileting(FIM): 5 Toileting Hygiene (QC): 5 Toilet/Commode Transfer(FIM): 5 Toilet/Commode Transfer (QC): 5 Shower Transfer(FIM): 5 Additional Goals: 2-Verbalize Understanding, 3-ImproveStrength/Fady 1=Demonstrate adherence to instructed precautions during ADL tasks. 2=Patient will verbalize/demonstrate understanding of assistive devices/ modifications for ADL. 3=Patient will improve strength/tolerance for activity to enable patient to perform ADL's. OT Education/Plan Problem List/Assessment Pt would benefit from skilled OT to increase his independence in basic self care to allow him to safely return to his home to live alone and to decrease caregiver burden. Discharge Recommendations Plan/Recommendations: Continue POC Treatment Plan/Plan of Care Patient would benefit from OT for education, treatment and training to promote independence in ADL's, mobility, safety and/or upper extremity function for ADL' s. Plan of Care: ADL Retraining, Functional Mobility, Group Exercise/Act as Ind ( education, exercise, activity tolerance, functional activities, socialization), UE Funct Exercise/Act, UE Neuromus Re-Ed/Coord, W/C Management Training Treatment Duration: Dec 01, 2016 Frequency: Twice Daily Estimated Hrs Per Day: 1.5 hours per day Agreement: Yes Rehab Potential: Fair Time/GCodes Start Time: 11:00 Stop Time: 11:30 Total Time Billed (hr/min): 30 Billed Treatment Time visit, 30 minutes neuromotor THAI HOOVER OT Nov 09, 2016 11:54
--- NOTE | 2016-11-09 14:42 | Physical Therapy Daily Note ---
PT Daily Note-Current Subjective Agrees to PT. Reports he is worn out from this morning. Transfers Functional [place] Measure 0=Not Assessed/NA 4=Minimal Assistance 1=Total Assistance 5=Supervision or Setup 2=Maximal Assistance 6=Modified [place] 3=Moderate Assistance 7=Complete IndependenceIRFPAI Quality Coding Scale 6 Independent with activity with or without an assistive device 5 Patient requires set up or clean up by helper. Patient completes activity by themselves 4 Supervision or touching assist (CGA). [place] provide cues , steadying assist 3 The helper provides less than half the effort to complete the activity 2 The helper provides more than half the effort to complete the activity 1 Dependent. The helper does all the effort to complete an activity 7 Patient refused to complete or attempt activity 9 The patient did not perform the activity before the current illness or injury 88 Not attempted due to Medical conditions or safety concerns Exercises Supine Ex: Ankle pumps, Quad Set, Glut sets, Heel Slides, Short Arc Quads, Resisted flex/ext, Hip abd/add Supine Reps: 15 (to promote LE strength for functional transfers and gait progression. ) Assessment Tolerated treatment well; tired this pm. PT Short Term Goals Short Term Goals Time Frame: Nov 10, 2016 Gait (FIM): 1 Gait Distance Comment: 10' Gait Level of Assist: 2 Gait Assistive Device: FWW, Walker Platform Wheelchair Distance: 150'x2 PT Tourist Adviser Goals Tourist Adviser Goals PT Tourist Adviser Goals Time Frame: Nov 24, 2016 Transfers (B,C,W/C) (FIM): 4 Sit to Lying (QC): 3 Lying-Sitting on Side/Bed(QC): 3 Sit to Stand (QC): 3 Rollin Roll Left to Right (QC): 3 Chair/Cba-eh-Iywjw Xfer(QC): 3 Gait (FIM): 1 Distance: 20' Walk 10 feet (QC): 2 Gait Level of Assist: 2 Gait Assistive Device: FWW, Walker Platform Wheelchair (FIM): 6 Distance: 500' Wheelchair Level of Assist: 6 Wheel 50 feet with 2 turns (QC: 6 PT Plan Problem List Problem List: Activity Tolerance, Functional Strength, Safety, Balance, Gait, Transfer, Bed Mobility Treatment/Plan Treatment Plan: Continue Plan of Care Treatment Plan: Bed Mobility, Education, Functional Activity Fady, Functional Strength, Group Therapy, Gait, Safety, Therapeutic Exercise, Transfers Treatment Duration: Nov 24, 2016 Frequency: At least 5-7 days/Wk (IRF) Estimated Hrs Per Day: 2 hours per day Patient and/or Family Agrees t: Yes Time/GCodes Time In: 1400 Time Out: 1430 Total Billed Treatment Time: 30 Total Billed Treatment vsiit EX 30 PREMA JURADO PT Nov 09, 2016 14:42
[2016-11-09] MEDS: HYDROcodone/APAP 10 MG/325 MG (LORTAB) TAB PO PRN ×2 (15:32→21:11)
[2016-11-09 18:02] VITALS: BP 129/74
--- NOTE | 2016-11-09 19:21 | PM & R (SOAP) Progress Note ---
Subjective Time Seen by Provider: 11:35 Subjective/Events-last exam Patient was seen in his room this AM Requests change to Hydrocodone from OXY due bad dreams So ordered RN requests wound care consult due to heel breakdown - So rodered. Patient max assist for transfers Review of Systems Musculoskeletal: neck pain, shoulder pain Neurological: Weakness Objective Exam Last Set of Vital Signs Vital Signs Date Time Temp Pulse Resp B/P (MAP) Pulse Ox O2 Delivery O2 Flow Rate FiO2 11/09/16 18:02 98.4 80 19 129/74 92 Room Air Capillary Refill : I&O Intake and Output 11/09/16 00:00 Intake Total 1090 ml Output Total 2750 ml Balance -1660 ml Intake Oral 1090 ml Output Urine Total 2750 ml # Bowel Movements 1 General: Alert, Oriented X3, Cooperative, No Acute Distress HEENT: Atraumatic, PERRLA, EOMI, Mucous Memb Moist/[place] Neck: Supple, Other (inciasion healing well C Collar in place) Lungs: Clear to Auscultation Heart: Regular Rate Abdomen: Normal Bowel Sounds Extremities: Other (trace edema rt hand) Neuro: Other (2-3 strength rt UE Numbness rt hand) Results Lab Laboratory Tests 11/06/16 20:12: Glucometer 149H 11/07/16 06:53: Glucometer 128H 11/07/16 11:01: Glucometer 172H 11/07/16 16:07: Glucometer 180H 11/07/16 20:07: Glucometer 128H 11/08/16 05:11: Glucometer 128H 11/08/16 11:07: Glucometer 170H 11/08/16 16:03: Glucometer 150H 11/08/16 21:13: Glucometer 138H 11/09/16 04:27: Glucometer 147H 11/09/16 11:25: Glucometer 177H 11/09/16 15:31: Glucometer 128H Assessment/Plan Assessment Cervical spine stenosis with myelopathy s/p decompression DR Atkinson Dysphagia improved diet advanced- to regular consistency discussed with RN AMY on cpap HTN controlled DM with episode of hypoglycemia Dr juarez has adjusted insulin HLP Plan Continue PT/OT/Pain management F/U with Hospitalist and DR Atkinson as per their schedule Trend Accucheks and adjust insulin as needed Pain managemnet Change meds Wound care consult -see orders. JOSEY SALINAS MD Nov 09, 2016 19:21
[2016-11-09] MEDS: IRBESARTAN 150 MG (AVAPRO) TAB PO SCH (21:11)
[2016-11-10] MEDS: HYDROcodone/APAP 10 MG/325 MG (LORTAB) TAB PO PRN ×4 (01:59→16:51)
[2016-11-10] MEDS: MULTIVIT W/MINERALS TAB (THERAGRAN M) PO SCH (05:48)
[2016-11-10 06:00] VITALS: BP 151/91
[2016-11-10] MEDS: metFORMIN 500 MG (GLUCOPHAGE) TAB PO SCH ×2 (06:25→16:50)
[2016-11-10] MEDS: inSUlin (REGULAR) HUMAN 1 UNIT/0.01 ML (CHARGE PER UNIT) SC SCH ×3 (06:25→16:51)
[2016-11-10] MEDS: POLYETHYLENE GLYCOL 17 GM (MIRALAX) PACK PO SCH ×2 (08:07→20:05)
[2016-11-10] MEDS: LACTULOSE SYRUP 10GM/15ML (ENULOSE) 30ML UDC PO SCH ×2 (08:07→20:06)
[2016-11-10] MEDS: amLODIPine 5 MG (NORVASC) TAB PO SCH (08:10)
[2016-11-10] MEDS: SENNA W/DOCUSATE (SENOKOT S) TABLET PO SCH ×2 (08:10→20:06)
[2016-11-10] MEDS: HYDROCHLOROTHIAZIDE 25 MG (HCTZ) TAB PO SCH (08:10)
--- NOTE | 2016-11-10 08:28 | PM & R (SOAP) Progress Note ---
Subjective Time Seen by Provider: 07:40 Subjective/Events-last exam Patient was seen in his room this AM Patient reports that sleep better with change in pain meds to hydrocodone -less unpleasant dreams.Patient Max assist for transfers Dr Finch reconsulted re chronic rt heel wound Objective Exam Last Set of Vital Signs Vital Signs Date Time Temp Pulse Resp B/P (MAP) Pulse Ox O2 Delivery O2 Flow Rate FiO2 11/10/16 06:00 97.9 92 16 151/91 Room Air 11/09/16 18:02 92 Capillary Refill : I&O Intake and Output 11/10/16 00:00 Intake Total 1900 ml Output Total 1700 ml Balance 200 ml Intake Oral 1900 ml Output Urine Total 1700 ml # Bowel Movements 1 General: Alert, Oriented X3, Cooperative, No Acute Distress HEENT: Atraumatic, PERRLA, EOMI, Mucous Memb Moist/[place] Neck: Supple, Other (inciasion healing well C Collar in place) Lungs: Clear to Auscultation Heart: Regular Rate Abdomen: Normal Bowel Sounds Extremities: Other (trace edema rt hand) Skin: Other (rt heel wrapped) Neuro: Other (2-3 strength rt UE Numbness rt hand) Results Lab Laboratory Tests 11/07/16 11:01: Glucometer 172H 11/07/16 16:07: Glucometer 180H 11/07/16 20:07: Glucometer 128H 11/08/16 05:11: Glucometer 128H 11/08/16 11:07: Glucometer 170H 11/08/16 16:03: Glucometer 150H 11/08/16 21:13: Glucometer 138H 11/09/16 04:27: Glucometer 147H 11/09/16 11:25: Glucometer 177H 11/09/16 15:31: Glucometer 128H 11/09/16 19:51: Glucometer 138H 11/10/16 05:45: Glucometer 132H Assessment/Plan Assessment Cervical spine spondylosis with myelopathy s/p decompression DR Atkinson Dysphagia improved diet advanced- to regular consistency discussed with RN AMY on cpap HTN controlled DM with episode of hypoglycemia Dr juarez has adjusted insulin -improved HLP Intolerance to oxy-disturbed sleep Plan Continue PT/OT/Pain management F/U with Hospitalist and DR Atkinson as per their schedule Trend Accucheks and adjust insulin as needed Pain managemnet Changed meds-improved Wound care reconsult to check rt heel -see orders Team Conference tomorrow. JOSEY SALINAS MD Nov 10, 2016 08:28
[2016-11-10] MEDS: MENTHOL/ZINC OXIDE (CALMOSEPTINE) 113 GM TUBE TOP SCH ×2 (10:51→20:07)
[2016-11-10] MEDS: MICONAZOLE 2% POWDER (DESENEX AF) 90 GM TOP SCH ×2 (10:52→20:07)
--- NOTE | 2016-11-10 11:58 | Physical Therapy Daily Note ---
PT Daily Note-Current Subjective Patient in power chair pre tx, agrees to PT, has pain of 6/10 in right shoulder and 4/10 in left hip. Appearance Patient in bed post tx with nurse ronel burkett, all needs met. Mental Status Patient Orientation: Normal For Age cervical collar on when out of bed Transfers Functional [place] Measure 0=Not Assessed/NA 4=Minimal Assistance 1=Total Assistance 5=Supervision or Setup 2=Maximal Assistance 6=Modified [place] 3=Moderate Assistance 7=Complete IndependenceIRFPAI Quality Coding Scale 6 Independent with activity with or without an assistive device 5 Patient requires set up or clean up by helper. Patient completes activity by themselves 4 Supervision or touching assist (CGA). [place] provide cues , steadying assist 3 The helper provides less than half the effort to complete the activity 2 The helper provides more than half the effort to complete the activity 1 Dependent. The helper does all the effort to complete an activity 7 Patient refused to complete or attempt activity 9 The patient did not perform the activity before the current illness or injury 88 Not attempted due to Medical conditions or safety concerns Transfers (B, C, W/C) (FIM): 2 Scootin Rollin Supine to/from Sit: 2 Sit to/from Stand: 3 Bed to/from Chair: 3 Patient still requires max assist of 2 for supine to sit but has improved with standing and stand pivot transfer to mod assist Exercises Supine Ex: Bridging, Ankle pumps Supine Reps: 20 SAQ alternating for 5 min, stood in the parallel bars x3 for about 3-5 min each time Treatments bed mobility, transfers, functional strengthening Assessment Current Status: Fair Progress patient has improved sit to stand and stand pivot transfer to mod assist PT Short Term Goals Short Term Goals Time Frame: Nov 10, 2016 Gait (FIM): 1 Gait Distance Comment: 10' Gait Level of Assist: 2 Gait Assistive Device: FWW, Walker Platform Wheelchair Distance: 150'x2 PT Halfway Goals Energy Attorney Goals PT Energy Attorney Goals Time Frame: Nov 24, 2016 Transfers (B,C,W/C) (FIM): 4 Sit to Lying (QC): 3 Lying-Sitting on Side/Bed(QC): 3 Sit to Stand (QC): 3 Rollin Roll Left to Right (QC): 3 Chair/Jzx-kb-Nxjfz Xfer(QC): 3 Gait (FIM): 1 Distance: 20' Walk 10 feet (QC): 2 Gait Level of Assist: 2 Gait Assistive Device: FWW, Walker Platform Wheelchair (FIM): 6 Distance: 500' Wheelchair Level of Assist: 6 Wheel 50 feet with 2 turns (QC: 6 PT Plan Problem List Problem List: Activity Tolerance, Functional Strength, Safety, Balance, Gait, Transfer, Bed Mobility, ROM Treatment/Plan Treatment Plan: Continue Plan of Care Treatment Plan: Bed Mobility, Education, Functional Activity Fady, Functional Strength, Group Therapy, Gait, Safety, Therapeutic Exercise, Transfers Treatment Duration: Nov 24, 2016 Frequency: At least 5-7 days/Wk (IRF) Estimated Hrs Per Day: 2 hours per day Patient and/or Family Agrees t: Yes Safety Risks/Education Patient Education: Transfer Techniques, Correct Positioning, Reviewed Don/Doff Brace, Safety Issues Teaching Recipient: Patient Teaching Methods: Demonstration, Discussion Response to Teaching: Reinforcement Needed Time/GCodes Time In: 1100 Time Out: 1200 Total Billed Treatment Time: 60 Total Billed Treatment 1 visit FA 30' EX 30' CATALINA RUBI PT Nov 10, 2016 11:58
--- NOTE | 2016-11-10 12:55 | Occupational Ther Daily Note ---
OT Current Status-Daily Note Subjective Pt seen in room, up in power chair, agreeable to OT. Later reported pain in R shoulder but did not rate or describe it. Appearance Alert, cooperative, shared stories about his house. More animated. Pain meds changed today Mental Status/Objective Functional [place] Measure 0=Not Assessed/NA 4=Minimal Assistance 1=Total Assistance 5=Supervision or Setup 2=Maximal Assistance 6=Modified [place] 3=Moderate Assistance 7=Complete [place] ADL-Treatment Pt did not want to shower but did want to shave. He is still unable to hold his razor with his hands so created a "universal cuff" with foam and tape. He was able to shave the L side of his face with L hand, with occasional help to turn the razor. He also was able to brush almost all of his teeth with manual toothbrush placed in the cuff (repositioned several times by OT) and fed himself some ice cream, scooping it and getting it to his mouth, all with L UE. All ADLs took longer than usual and were done up in power chair. Pt needed practice to position power chair at sink. Functional [place] Measure 0=Not Assessed/NA 4=Minimal Assistance 1=Total Assistance 5=Supervision or Setup 2=Maximal Assistance 6=Modified [place] 3=Moderate Assistance 7=Complete IndependenceIRFPAI Quality Coding Scale 6 Independent with activity with or without an assistive device 5 Patient requires set up or clean up by helper. Patient completes activity by themselves 4 Supervision or touching assist (CGA). [place] provide cues , steadying assist 3 The helper provides less than half the effort to complete the activity 2 The helper provides more than half the effort to complete the activity 1 Dependent. The helper does all the effort to complete an activity 7 Patient refused to complete or attempt activity 9 The patient did not perform the activity before the current illness or injury 88 Not attempted due to Medical conditions or safety concerns Eating (QC): 4 Grooming (FIM): 3 Other Treatment Pt transported himself to gym per power chair. Skilled facilitation techniques used, along with stretches, to work on ROM and strength bilat UEs. Mobilization of bilat scapulae. Pt reported pain relief in R shoulder after mobilization. Still has tight shoulder flex/abd on R. Edema has decreased in hand and Isotoner glove reapplied. Pt education of shoulder girdle movement. Pt took himself back to his room, all needs met. Education OT Patient Education: Purpose of tx/functional activities Teaching Recipient: Patient Teaching Methods: Demonstration, Discussion Response to Teaching: Verbalize Understanding OT Short Term Goals Short Term Goals Time Frame: Nov 17, 2016 Eating(FIM): 4 Grooming(FIM): 3 Upper Body Dressing(FIM): 3 Lower Body Dressing(FIM): 3 Toileting(FIM): 3 Toilet/Commode Transfer(FIM): 3 Shower Transfer(FIM): 3 Additional Short Term Goals: 2-Verbalize Understanding, 3-ImproveStrength/Fady 1=Demonstrate adherence to instructed precautions during ADL tasks. 2=Patient will verbalize/demonstrate understanding of assistive devices/ modifications for ADL. 3=Patient will improve strength/tolerance for activity to enable patient to perform ADL's. OT Snf Goals Perishable Freight Inspector Goals Time Frame: Dec 01, 2016 Eating (FIM): 5 Eating (QC): 5 Groomin Oral Hygiene (QC): 5 Bathing(FIM): 5 Shower/Bathe Self (QC): 5 Upper Body Dressing(FIM): 5 Upper Body Dressing (QC): 5 Lower Body Dressing(FIM): 5 Lower Body Dressing (QC): 5 On/Off Footwear (QC): 4 Toileting(FIM): 5 Toileting Hygiene (QC): 5 Toilet/Commode Transfer(FIM): 5 Toilet/Commode Transfer (QC): 5 Shower Transfer(FIM): 5 Additional Goals: 2-Verbalize Understanding, 3-ImproveStrength/Fady 1=Demonstrate adherence to instructed precautions during ADL tasks. 2=Patient will verbalize/demonstrate understanding of assistive devices/ modifications for ADL. 3=Patient will improve strength/tolerance for activity to enable patient to perform ADL's. OT Education/Plan Problem List/Assessment Pt would benefit from skilled OT to increase his independence in basic self care to allow him to safely return to his home to live alone and to decrease caregiver burden. Discharge Recommendations Plan/Recommendations: Continue POC Treatment Plan/Plan of Care Patient would benefit from OT for education, treatment and training to promote independence in ADL's, mobility, safety and/or upper extremity function for ADL' s. Plan of Care: ADL Retraining, Functional Mobility, Group Exercise/Act as Ind ( education, exercise, activity tolerance, functional activities, socialization), UE Funct Exercise/Act, UE Neuromus Re-Ed/Coord, W/C Management Training Treatment Duration: Dec 01, 2016 Frequency: Twice Daily Estimated Hrs Per Day: 1.5 hours per day Agreement: Yes Rehab Potential: Fair Time/GCodes Start Time: 08:30 Stop Time: 10:00 Total Time Billed (hr/min): 90 Billed Treatment Time visit, ADL 45 minutes, neuromotor 45 minutes THAI HOOVER OT Nov 10, 2016 12:55
--- NOTE | 2016-11-10 13:40 | Physical Therapy Daily Note ---
PT Daily Note-Current Subjective Patient is in bed and agrees to bed exercises. No c/o at this time. Pain Numeric Pain Scale: 0-No Pain Location: No Pain Reported Mental Status Patient Orientation: Normal For Age Transfers Functional [place] Measure 0=Not Assessed/NA 4=Minimal Assistance 1=Total Assistance 5=Supervision or Setup 2=Maximal Assistance 6=Modified [place] 3=Moderate Assistance 7=Complete IndependenceIRFPAI Quality Coding Scale 6 Independent with activity with or without an assistive device 5 Patient requires set up or clean up by helper. Patient completes activity by themselves 4 Supervision or touching assist (CGA). [place] provide cues , steadying assist 3 The helper provides less than half the effort to complete the activity 2 The helper provides more than half the effort to complete the activity 1 Dependent. The helper does all the effort to complete an activity 7 Patient refused to complete or attempt activity 9 The patient did not perform the activity before the current illness or injury 88 Not attempted due to Medical conditions or safety concerns Exercises Supine Ex: Ankle pumps, Quad Set, Lower trunk rotation, Heel Slides, Short Arc Quads, Straight leg raise, Hip abd/add Supine Reps: 10 (AAROM bilateral LE due to weakness) Assessment Patient tolerated treatment well feels he is making progress with strengthening with exercises and treatment. PT to increase activity as tolerated by patient. PT Short Term Goals Short Term Goals Time Frame: Nov 10, 2016 Gait (FIM): 1 Gait Distance Comment: 10' Gait Level of Assist: 2 Gait Assistive Device: FWW, Walker Platform Wheelchair Distance: 150'x2 PT Cause Analyst Goals Senior Care Goals PT Senior Care Goals Time Frame: Nov 24, 2016 Transfers (B,C,W/C) (FIM): 4 Sit to Lying (QC): 3 Lying-Sitting on Side/Bed(QC): 3 Sit to Stand (QC): 3 Rollin Roll Left to Right (QC): 3 Chair/Ire-is-Luldp Xfer(QC): 3 Gait (FIM): 1 Distance: 20' Walk 10 feet (QC): 2 Gait Level of Assist: 2 Gait Assistive Device: FWW, Walker Platform Wheelchair (FIM): 6 Distance: 500' Wheelchair Level of Assist: 6 Wheel 50 feet with 2 turns (QC: 6 PT Plan Treatment/Plan Treatment Plan: Continue Plan of Care Treatment Plan: Bed Mobility, Education, Functional Activity Fady, Functional Strength, Group Therapy, Gait, Safety, Therapeutic Exercise, Transfers Treatment Duration: Nov 24, 2016 Frequency: At least 5-7 days/Wk (IRF) Estimated Hrs Per Day: 2 hours per day Patient and/or Family Agrees t: Yes Time/GCodes Time In: 1310 Time Out: 1340 Total Billed Treatment Time: 30 Total Billed Treatment 1 visit EX x 2 30 min ALANNA OLIVER PT Nov 10, 2016 13:40
[2016-11-10] MEDS: A & D OINT 60 GM TUBE TOP SCH (13:52)
[2016-11-10 17:48] VITALS: BP 137/85
[2016-11-10] MEDS: IRBESARTAN 150 MG (AVAPRO) TAB PO SCH (20:06)
--- NOTE | 2016-11-10 23:17 | Wound Care Progress Note ---
Subjective Subjective Subjective/Events-last exam 61 year old male with a history of ulceration of the R heel and now with discoloration of the previous wound site.. We will plan to debride the area. PMH: Quadriplegia partial Review of Systems Date Seen by Provider: Nov 10, 2016 Time Seen by Provider: 17:00 General: No Chills, No Fatigue Pulmonary: No Dyspnea Musculoskeletal: back pain, leg pain Neurological: Incoordination, Numbness, Weakness Objective Exam Last Set of Vital Signs Vital Signs Date Time Temp Pulse Resp B/P (MAP) Pulse Ox O2 Delivery O2 Flow Rate FiO2 11/10/16 21:00 Room Air 11/10/16 17:48 95 19 137/85 96 11/10/16 06:00 97.9 Capillary Refill : I&O Intake and Output 11/10/16 00:00 Intake Total 1900 ml Output Total 1700 ml Balance 200 ml Intake Oral 1900 ml Output Urine Total 1700 ml # Bowel Movements 1 General: Alert, No Acute Distress Lungs: Normal Air Movement Neuro: Other (Quadriplegia, incomplete.) Results Lab Laboratory Tests 11/10/16 05:45: Glucometer 132H 11/10/16 10:55: Glucometer 161H 11/10/16 15:39: Glucometer 116H 11/10/16 20:33: Glucometer 86 Assessment/Plan Assessment/Plan Assessment/Plan 1. Callus, R heel. 2. Diabetes mellitus, with neuropathy. 3. Cervical myelopathy. Plan: The callus is pared. A + D ointment. Will see again as needed. HERMANN ZHONG MD Nov 10, 2016 23:17
[2016-11-11] MEDS: HYDROcodone/APAP 10 MG/325 MG (LORTAB) TAB PO PRN ×6 (03:59→21:50)
[2016-11-11] MEDS: DIAZEPAM 5 MG (VALIUM) TABLET PO PRN ×2 (05:30→21:50)
[2016-11-11 05:35] VITALS: BP 148/97
[2016-11-11] MEDS: metFORMIN 500 MG (GLUCOPHAGE) TAB PO SCH ×2 (06:42→21:50)
[2016-11-11] MEDS: MULTIVIT W/MINERALS TAB (THERAGRAN M) PO SCH (06:42)
[2016-11-11] MEDS: inSUlin (REGULAR) HUMAN 1 UNIT/0.01 ML (CHARGE PER UNIT) SC SCH ×3 (07:00→19:57)
[2016-11-11] MEDS: amLODIPine 5 MG (NORVASC) TAB PO SCH (08:04)
[2016-11-11] MEDS: SENNA W/DOCUSATE (SENOKOT S) TABLET PO SCH ×2 (08:04→21:50)
[2016-11-11] MEDS: A & D OINT 60 GM TUBE TOP SCH (08:05)
[2016-11-11] MEDS: HYDROCHLOROTHIAZIDE 25 MG (HCTZ) TAB PO SCH (08:05)
[2016-11-11] MEDS: MICONAZOLE 2% POWDER (DESENEX AF) 90 GM TOP SCH ×2 (08:05→19:15)
[2016-11-11] MEDS: MENTHOL/ZINC OXIDE (CALMOSEPTINE) 113 GM TUBE TOP SCH ×2 (08:06→19:15)
[2016-11-11] MEDS: LACTULOSE SYRUP 10GM/15ML (ENULOSE) 30ML UDC PO SCH ×2 (08:06→19:53)
[2016-11-11] MEDS: POLYETHYLENE GLYCOL 17 GM (MIRALAX) PACK PO SCH ×2 (08:06→19:50)
--- NOTE | 2016-11-11 08:37 | PM & R (SOAP) Progress Note ---
Subjective Time Seen by Provider: 07:35 Subjective/Events-last exam Patient was seen in his room this AM Discussed case with DR Finch yesterday Appreciate his note and POC Patient Max assist for transfers. Objective Exam Last Set of Vital Signs Vital Signs Date Time Temp Pulse Resp B/P (MAP) Pulse Ox O2 Delivery O2 Flow Rate FiO2 11/11/16 05:35 97.6 94 18 148/97 96 Room Air Capillary Refill : I&O Intake and Output 11/11/16 00:00 Intake Total 1500 ml Output Total 1125 ml Balance 375 ml Intake Oral 1500 ml Output Urine Total 1125 ml # Voids 1 # Bowel Movements 1 General: Alert, Oriented X3, Cooperative, No Acute Distress HEENT: Atraumatic, PERRLA, EOMI, Mucous Memb Moist/[place] Neck: Supple, Other (inciasion healing well C Collar in place) Lungs: Clear to Auscultation Heart: Regular Rate Abdomen: Normal Bowel Sounds Extremities: Other (trace edema rt hand) Skin: Other (rt heel wrapped) Neuro: Other (2-3 strength rt UE Numbness rt hand) Results Lab Laboratory Tests 11/08/16 11:07: Glucometer 170H 11/08/16 16:03: Glucometer 150H 11/08/16 21:13: Glucometer 138H 11/09/16 04:27: Glucometer 147H 11/09/16 11:25: Glucometer 177H 11/09/16 15:31: Glucometer 128H 11/09/16 19:51: Glucometer 138H 11/10/16 05:45: Glucometer 132H 11/10/16 10:55: Glucometer 161H 11/10/16 15:39: Glucometer 116H 11/10/16 20:33: Glucometer 86 11/11/16 05:32: Glucometer 137H Assessment/Plan Assessment Cervical spine spondylosis with myelopathy s/p decompression DR Atkinson Dysphagia improved diet advanced- to regular consistency discussed with RN AMY on cpap HTN controlled DM with episode of hypoglycemia Dr juarez has adjusted insulin -improved HLP Intolerance to oxy-disturbed sleep Pressure sore rt heel Plan Continue PT/OT/Pain management F/U with Hospitalist and DR Atkinson as per their schedule Trend Accucheks and adjust insulin as needed Pain managemnet Changed meds-improved Wound care reconsult to check rt heel -see orders-done as per above Team Conference later today-See report for full functional update and POC and ELOS Paatient doing better with switch to hydrocodone for pain-less side effects reported. JOSEY SALINAS MD Nov 11, 2016 08:37
--- NOTE | 2016-11-11 09:00 | Physical Therapy Daily Note ---
PT Daily Note-Current Subjective Patient in bed pre tx, agrees to PT. He has pain of 5/10 in shoulder and left leg. Patient has had a lot of drainage from his incision and PT will help patient with sitting and positioning while nurse changes his bandage. He will also need to be dressed and toileted. Appearance Patient in power chair post tx. Mental Status Patient Orientation: Normal For Age cervical collar Transfers Functional [place] Measure 0=Not Assessed/NA 4=Minimal Assistance 1=Total Assistance 5=Supervision or Setup 2=Maximal Assistance 6=Modified [place] 3=Moderate Assistance 7=Complete IndependenceIRFPAI Quality Coding Scale 6 Independent with activity with or without an assistive device 5 Patient requires set up or clean up by helper. Patient completes activity by themselves 4 Supervision or touching assist (CGA). [place] provide cues , steadying assist 3 The helper provides less than half the effort to complete the activity 2 The helper provides more than half the effort to complete the activity 1 Dependent. The helper does all the effort to complete an activity 7 Patient refused to complete or attempt activity 9 The patient did not perform the activity before the current illness or injury 88 Not attempted due to Medical conditions or safety concerns Transfers (B, C, W/C) (FIM): 2 Scootin Rollin Supine to/from Sit: 2 Sit to/from Stand: 3 Bed to/from Chair: 3 Patient cannot assist much with his arms but his legs seem to be getting stronger Exercises Patient stood in the parallel bars x2 for about 4-5 min each time Treatments bed mobility, patient had to perform a stand pivot transfer several times for dressing and toileting, dressing, sit to stand Assessment Current Status: Fair Progress Patient now performs a stand pivot transfer with mod A PT Short Term Goals Short Term Goals Time Frame: Nov 10, 2016 Gait (FIM): 1 Gait Distance Comment: 10' Gait Level of Assist: 2 Gait Assistive Device: FWW, Walker Platform Wheelchair Distance: 150'x2 PT Nursing Home Goals Acid Filler Goals PT Nursing Home Goals Time Frame: Nov 24, 2016 Transfers (B,C,W/C) (FIM): 4 Sit to Lying (QC): 3 Lying-Sitting on Side/Bed(QC): 3 Sit to Stand (QC): 3 Rollin Roll Left to Right (QC): 3 Chair/Ass-uw-Ugpqy Xfer(QC): 3 Gait (FIM): 1 Distance: 20' Walk 10 feet (QC): 2 Gait Level of Assist: 2 Gait Assistive Device: FWW, Walker Platform Wheelchair (FIM): 6 Distance: 500' Wheelchair Level of Assist: 6 Wheel 50 feet with 2 turns (QC: 6 PT Plan Problem List Problem List: Activity Tolerance, Functional Strength, Safety, Balance, Gait, Transfer, Bed Mobility, ROM Treatment/Plan Treatment Plan: Continue Plan of Care Treatment Plan: Bed Mobility, Education, Functional Activity Fady, Functional Strength, Group Therapy, Gait, Safety, Therapeutic Exercise, Transfers Treatment Duration: Nov 24, 2016 Frequency: At least 5-7 days/Wk (IRF) Estimated Hrs Per Day: 2 hours per day Patient and/or Family Agrees t: Yes Safety Risks/Education Patient Education: Transfer Techniques, Correct Positioning, Safety Issues Teaching Recipient: Patient Teaching Methods: Demonstration, Discussion Response to Teaching: Reinforcement Needed Time/GCodes Time In: 800 Time Out: 900 Total Billed Treatment Time: 60 Total Billed Treatment 1 visit EX 10' FA 50' CATALINA RUBI PT Nov 11, 2016 09:00
--- NOTE | 2016-11-11 10:35 | Progress Note-Hospitalist ---
Progress Note Progress Notes/Assess & Plan Date Seen 11/11/16 Time Seen by Provider: 10:00 Diagonsis/Assessment & Plan Chart Review: No fever Vitals stable Patient Interview: Pt was showering upon interview Pt states that his arms and legs are doing well Pt states that he has lost about 100 lbs. We will keep his insulin as is for now. Pt denies BMs. AFVSS, pleasant, O x 3, improved RRR, CTAB improved extremity movement and strength No edema Assessment: Status post cervical spine surgery stage II of 2 stage surgery for spinal cord compression Dysphagia due to edema from neck surgery s/p NPO but now ok with nutrition intake PO Diabetes mellitus Obstructive sleep apnea compliant with treatment Hypertension Hyperlipidemia Status post narcotic bowel requiring soapsuds enema for disimpaction 2 and half weeks ago maintained on regimen Plan: Restarted home meds AC/HS accuchecks maintain lower dose of NovoLog 10 units AC Food from outside [facility] ok Continue insulin as it is now Scribed by Michelle Garcia under the direct supervision of Dr. Duvall. KEANU DUVALL DO Nov 11, 2016 10:35
--- NOTE | 2016-11-11 11:40 | Occupational Ther Daily Note ---
OT Current Status-Daily Note Subjective Pt alert, sitting up in w/c. Pt agreed to therapy. No c/o pain at this time. Mental Status/Objective Patient Orientation: Person, Place, Time, Situation Functional [place] Measure 0=Not Assessed/NA 4=Minimal Assistance 1=Total Assistance 5=Supervision or Setup 2=Maximal Assistance 6=Modified [place] 3=Moderate Assistance 7=Complete [place] ADL-Treatment Pt agreed to shower. Dependent transfer with sit to stand lift from w/c to rolling shower chair. Pt attempted to bathe/drying upper body, inefficient and difficulty to maneuver L UE to areas. Dependent for bathing/drying/dressing LE' s. Pt is able to raise B UE's to thread arms through sleeves then assist to box puller head and down body. Sit to stand lift to transfer from rolling shower chair to bed. Assist to complete grooming and bed mobility. After therapy, pt lying in bed with call light/phone in reach, all needs met in room. Functional [place] Measure 0=Not Assessed/NA 4=Minimal Assistance 1=Total Assistance 5=Supervision or Setup 2=Maximal Assistance 6=Modified [place] 3=Moderate Assistance 7=Complete IndependenceIRFPAI Quality Coding Scale 6 Independent with activity with or without an assistive device 5 Patient requires set up or clean up by helper. Patient completes activity by themselves 4 Supervision or touching assist (CGA). [place] provide cues , steadying assist 3 The helper provides less than half the effort to complete the activity 2 The helper provides more than half the effort to complete the activity 1 Dependent. The helper does all the effort to complete an activity 7 Patient refused to complete or attempt activity 9 The patient did not perform the activity before the current illness or injury 88 Not attempted due to Medical conditions or safety concerns Grooming (FIM): 2 Bathing (FIM): 2 Upper Body (FIM): 2 Lower Body Dressing (FIM): 2 Transfers (B, C, W/C) (FIM): 1 Shower Transfer(FIM): 1 OT Short Term Goals Short Term Goals Time Frame: Nov 17, 2016 Eating(FIM): 4 Grooming(FIM): 3 Upper Body Dressing(FIM): 3 Lower Body Dressing(FIM): 3 Toileting(FIM): 3 Toilet/Commode Transfer(FIM): 3 Shower Transfer(FIM): 3 Additional Short Term Goals: 2-Verbalize Understanding, 3-ImproveStrength/Fady 1=Demonstrate adherence to instructed precautions during ADL tasks. 2=Patient will verbalize/demonstrate understanding of assistive devices/ modifications for ADL. 3=Patient will improve strength/tolerance for activity to enable patient to perform ADL's. OT Prison Goals Applied Psychology Professor Goals Time Frame: Dec 01, 2016 Eating (FIM): 5 Eating (QC): 5 Groomin Oral Hygiene (QC): 5 Bathing(FIM): 5 Shower/Bathe Self (QC): 5 Upper Body Dressing(FIM): 5 Upper Body Dressing (QC): 5 Lower Body Dressing(FIM): 5 Lower Body Dressing (QC): 5 On/Off Footwear (QC): 4 Toileting(FIM): 5 Toileting Hygiene (QC): 5 Toilet/Commode Transfer(FIM): 5 Toilet/Commode Transfer (QC): 5 Shower Transfer(FIM): 5 Additional Goals: 2-Verbalize Understanding, 3-ImproveStrength/Fady 1=Demonstrate adherence to instructed precautions during ADL tasks. 2=Patient will verbalize/demonstrate understanding of assistive devices/ modifications for ADL. 3=Patient will improve strength/tolerance for activity to enable patient to perform ADL's. OT Education/Plan Problem List/Assessment Pt would benefit from skilled OT to increase his independence in basic self care to allow him to safely return to his home to live alone and to decrease caregiver burden. Discharge Recommendations Plan/Recommendations: Continue POC Treatment Plan/Plan of Care Patient would benefit from OT for education, treatment and training to promote independence in ADL's, mobility, safety and/or upper extremity function for ADL' s. Plan of Care: ADL Retraining, Functional Mobility, Group Exercise/Act as Ind ( education, exercise, activity tolerance, functional activities, socialization), UE Funct Exercise/Act, UE Neuromus Re-Ed/Coord, W/C Management Training Treatment Duration: Dec 01, 2016 Frequency: Twice Daily Estimated Hrs Per Day: 1.5 hours per day Agreement: Yes Rehab Potential: Fair Time/GCodes Start Time: 09:00 Stop Time: 10:20 Total Time Billed (hr/min): 80 Billed Treatment Time 1 visit-ADL 5 (80 min) PREMA MEJIAS Nov 11, 2016 11:40
--- NOTE | 2016-11-11 14:37 | Therapy Group Daily Note ---
Therapy Daily Group Note Patient Education Topic Energy Cons Exercises LE Seated Exercise, UE Exercise Other/Notes Pt maneuvered motorized w/c to OT/PT group. Group consisted of introductions ( name, place living, what inspires you), socialization, energy conservation education and upper/lower seated exercises that incorporated cardio. Pt contributed to discussions effectively. Pt attempted to complete UE/LE exercises as well as possible with ROM limitations. Pt was able to verbalize understanding of education topic and elaborate on discussions. After group, pt maneuvered motorized w/c to room. Call light/phone in reach. All needs met in room. Start Time: 13:00 Stop Time: 14:15 Total Billed Treatment Time: 75 Total Billed Treatment 1-GRP PREMA MEJIAS Nov 11, 2016 14:37
[2016-11-11 17:29] VITALS: BP 129/86
[2016-11-11] MEDS: IRBESARTAN 150 MG (AVAPRO) TAB PO SCH (21:50)
[2016-11-12] MEDS: HYDROcodone/APAP 10 MG/325 MG (LORTAB) TAB PO PRN ×5 (01:57→21:43)
[2016-11-12 06:00] VITALS: BP 142/84
[2016-11-12] MEDS: DIAZEPAM 5 MG (VALIUM) TABLET PO PRN (06:49)
[2016-11-12] MEDS: MULTIVIT W/MINERALS TAB (THERAGRAN M) PO SCH (06:49)
[2016-11-12] MEDS: metFORMIN 500 MG (GLUCOPHAGE) TAB PO SCH ×2 (06:49→16:15)
[2016-11-12] MEDS: inSUlin (REGULAR) HUMAN 1 UNIT/0.01 ML (CHARGE PER UNIT) SC SCH ×3 (07:28→17:03)
[2016-11-12] MEDS: HYDROCHLOROTHIAZIDE 25 MG (HCTZ) TAB PO SCH (08:35)
[2016-11-12] MEDS: LACTULOSE SYRUP 10GM/15ML (ENULOSE) 30ML UDC PO SCH ×2 (08:35→21:43)
[2016-11-12] MEDS: amLODIPine 5 MG (NORVASC) TAB PO SCH (08:35)
[2016-11-12] MEDS: SENNA W/DOCUSATE (SENOKOT S) TABLET PO SCH ×2 (08:35→21:43)
[2016-11-12] MEDS: POLYETHYLENE GLYCOL 17 GM (MIRALAX) PACK PO SCH ×2 (08:36→21:59)
[2016-11-12] MEDS: A & D OINT 60 GM TUBE TOP SCH (08:36)
[2016-11-12] MEDS: MICONAZOLE 2% POWDER (DESENEX AF) 90 GM TOP SCH ×2 (08:36→21:48)
[2016-11-12] MEDS: MENTHOL/ZINC OXIDE (CALMOSEPTINE) 113 GM TUBE TOP SCH ×2 (08:37→21:49)
--- NOTE | 2016-11-12 09:20 | PM & R (SOAP) Progress Note ---
Subjective Time Seen by Provider: 07:30 Subjective/Events-last exam Patient was seen in his room this AM Eating with assistance has weakness both hands Rt >left Objective Exam Last Set of Vital Signs Vital Signs Date Time Temp Pulse Resp B/P (MAP) Pulse Ox O2 Delivery O2 Flow Rate FiO2 11/12/16 09:02 Room Air 11/12/16 06:00 98.6 91 16 142/84 95 Capillary Refill : I&O Intake and Output 11/12/16 00:00 Intake Total 1075 ml Output Total 1425 ml Balance -350 ml Intake Oral 1075 ml Output Urine Total 1425 ml # Bowel Movements 1 General: Alert, Oriented X3, Cooperative, No Acute Distress HEENT: Atraumatic, PERRLA, EOMI, Mucous Memb Moist/[place] Neck: Supple, Other (inciasion healing well C Collar in place) Lungs: Clear to Auscultation Heart: Regular Rate Abdomen: Normal Bowel Sounds Extremities: Other (trace edema rt hand) Skin: Other (rt heel wrapped) Neuro: Other (2-3 strength rt UE Numbness rt hand) Results Lab Laboratory Tests 11/09/16 11:25: Glucometer 177H 11/09/16 15:31: Glucometer 128H 11/09/16 19:51: Glucometer 138H 11/10/16 05:45: Glucometer 132H 11/10/16 10:55: Glucometer 161H 11/10/16 15:39: Glucometer 116H 11/10/16 20:33: Glucometer 86 11/11/16 05:32: Glucometer 137H 11/11/16 11:05: Glucometer 164H 11/11/16 15:50: Glucometer 153H 11/11/16 20:54: Glucometer 206H 11/12/16 06:55: Glucometer 122H Assessment/Plan Assessment Cervical spine spondylosis with myelopathy s/p decompression DR Atkinson Dysphagia improved diet advanced- to regular consistency discussed with RN AMY on cpap HTN controlled DM with episode of hypoglycemia Dr juarez has adjusted insulin -improved HLP Intolerance to oxy-disturbed sleep Pressure sore rt heel Plan Continue PT/OT/Pain management F/U with Hospitalist and DR Atkinson as per their schedule Trend Accucheks and adjust insulin as needed Pain managemnet Changed meds-improved Wound care reconsult to check rt heel -see orders-done as per above Team Conference held yesterday-See report for full functional update and POC and ELOS Patient doing better with switch to hydrocodone for pain-less side effects reported. JOSEY SALINAS MD Nov 12, 2016 09:20
--- NOTE | 2016-11-12 11:56 | Physical Therapy Daily Note ---
PT Daily Note-Current Subjective Patient in power chair pre tx, agrees to PT, has pain of 5/10. Appearance Patient in power chair post tx with seatbelt on, he is mod I with power chair mobility. Mental Status Patient Orientation: Normal For Age cervical collar Transfers Functional [place] Measure 0=Not Assessed/NA 4=Minimal Assistance 1=Total Assistance 5=Supervision or Setup 2=Maximal Assistance 6=Modified [place] 3=Moderate Assistance 7=Complete IndependenceIRFPAI Quality Coding Scale 6 Independent with activity with or without an assistive device 5 Patient requires set up or clean up by helper. Patient completes activity by themselves 4 Supervision or touching assist (CGA). [place] provide cues , steadying assist 3 The helper provides less than half the effort to complete the activity 2 The helper provides more than half the effort to complete the activity 1 Dependent. The helper does all the effort to complete an activity 7 Patient refused to complete or attempt activity 9 The patient did not perform the activity before the current illness or injury 88 Not attempted due to Medical conditions or safety concerns Transfers (B, C, W/C) (FIM): 2 Scootin Rollin Supine to/from Sit: 2 Sit to/from Stand: 3 Bed to/from Chair: 3 [facility] and perform rolling and bridging to get the sling on. Gait Training Patient ambulated 40' x 2 using the [employer] weight supported gait system. He was able to advance his feet a little better than last time, but had more scissoring. Exercises LAQ alternating for 5 min, manually resisted leg press 3 sets of 10 Treatments bed mobility and transfers, ambulation, functional strengthening Assessment Current Status: Fair Progress slowly improving transfers PT Short Term Goals Short Term Goals Time Frame: Nov 10, 2016 Gait (FIM): 1 Gait Distance Comment: 10' Gait Level of Assist: 2 Gait Assistive Device: FWW, Walker Platform Wheelchair Distance: 150'x2 PT Custodial Goals Release Of Information Clerk Goals PT Release Of Information Clerk Goals Time Frame: Nov 24, 2016 Transfers (B,C,W/C) (FIM): 4 Sit to Lying (QC): 3 Lying-Sitting on Side/Bed(QC): 3 Sit to Stand (QC): 3 Rollin Roll Left to Right (QC): 3 Chair/Dbl-ul-Aayei Xfer(QC): 3 Gait (FIM): 1 Distance: 20' Walk 10 feet (QC): 2 Gait Level of Assist: 2 Gait Assistive Device: FWW, Walker Platform Wheelchair (FIM): 6 Distance: 500' Wheelchair Level of Assist: 6 Wheel 50 feet with 2 turns (QC: 6 PT Plan Problem List Problem List: Activity Tolerance, Functional Strength, Safety, Balance, Gait, Transfer, Bed Mobility, ROM Treatment/Plan Treatment Plan: Continue Plan of Care Treatment Plan: Bed Mobility, Education, Functional Activity Fady, Functional Strength, Group Therapy, Gait, Safety, Therapeutic Exercise, Transfers Treatment Duration: Nov 24, 2016 Frequency: At least 5-7 days/Wk (IRF) Estimated Hrs Per Day: 2 hours per day Patient and/or Family Agrees t: Yes Safety Risks/Education Patient Education: Gait Training, Transfer Techniques, Correct Positioning, Safety Issues Teaching Recipient: Patient Teaching Methods: Demonstration, Discussion Response to Teaching: Reinforcement Needed Time/GCodes Time In: 1100 Time Out: 1200 Total Billed Treatment Time: 60 Total Billed Treatment 1 visit EX 15' FA 15' GT 30' CATALINA RUBI PT Nov 12, 2016 11:56
--- NOTE | 2016-11-12 12:55 | Occupational Ther Daily Note ---
OT Current Status-Daily Note Subjective Pt seen in his room, up in bed, agreeable to OT. No pain mentioned Appearance Alert, cooperative Mental Status/Objective Functional [place] Measure 0=Not Assessed/NA 4=Minimal Assistance 1=Total Assistance 5=Supervision or Setup 2=Maximal Assistance 6=Modified [place] 3=Moderate Assistance 7=Complete [place] ADL-Treatment Pt was able to slowly move both legs to the EOB but needed help to bring R arm and trunk forward and help to push up. Can sit EOB without help. Pt helped direct transfer to power chair, using sit to stand lift. Once up, pt took himself to accessible bathroom (has room for w/c) and was able to position himself at the sink. He needed help to take glasses off and prepare face for shaving (he uses dandruff shampoo because it helps manage rash on face). Foam handle taped into place L hand. With L elbow propped on sink, he was able to shave L side of face, including neck. He also was able to brush teeth, using foam cylinder and with setup. He turned brush with his teeth to reposition it. He demonstrated increased L wrist extension during ADLs and seemed pleased with progress. Functional [place] Measure 0=Not Assessed/NA 4=Minimal Assistance 1=Total Assistance 5=Supervision or Setup 2=Maximal Assistance 6=Modified [place] 3=Moderate Assistance 7=Complete IndependenceIRFPAI Quality Coding Scale 6 Independent with activity with or without an assistive device 5 Patient requires set up or clean up by helper. Patient completes activity by themselves 4 Supervision or touching assist (CGA). [place] provide cues , steadying assist 3 The helper provides less than half the effort to complete the activity 2 The helper provides more than half the effort to complete the activity 1 Dependent. The helper does all the effort to complete an activity 7 Patient refused to complete or attempt activity 9 The patient did not perform the activity before the current illness or injury 88 Not attempted due to Medical conditions or safety concerns Other Treatment Pr propelled power chair to gym. He worked on activities that encourage AROM and coordination of shoulder, elbow, forearm, wrist and hands. He was able to reach for (in various planes) and grasp cones with L hand and stack about 8 of them, sometimes with min assist. With R hand, could gently hold larger cone and move it around on the table but did not have enough strength to grasp cone to pick it up. C/o pain in R forearm, feeling like stretching. Pt took himself back to his room, all needs met. Education OT Patient Education: Modified ADL techniques, Progress toward Goal/Update tx plan, Purpose of tx/functional activities, Use of adapted equipment Teaching Recipient: Patient Teaching Methods: Demonstration, Discussion Response to Teaching: Verbalize Understanding, Return Demonstration OT Short Term Goals Short Term Goals Time Frame: Nov 17, 2016 Eating(FIM): 4 Grooming(FIM): 3 Upper Body Dressing(FIM): 3 Lower Body Dressing(FIM): 3 Toileting(FIM): 3 Toilet/Commode Transfer(FIM): 3 Shower Transfer(FIM): 3 Additional Short Term Goals: 2-Verbalize Understanding, 3-ImproveStrength/Fady 1=Demonstrate adherence to instructed precautions during ADL tasks. 2=Patient will verbalize/demonstrate understanding of assistive devices/ modifications for ADL. 3=Patient will improve strength/tolerance for activity to enable patient to perform ADL's. OT Windows 7 Deployment Lead Goals Prison Goals Time Frame: Dec 01, 2016 Eating (FIM): 5 Eating (QC): 5 Groomin Oral Hygiene (QC): 5 Bathing(FIM): 5 Shower/Bathe Self (QC): 5 Upper Body Dressing(FIM): 5 Upper Body Dressing (QC): 5 Lower Body Dressing(FIM): 5 Lower Body Dressing (QC): 5 On/Off Footwear (QC): 4 Toileting(FIM): 5 Toileting Hygiene (QC): 5 Toilet/Commode Transfer(FIM): 5 Toilet/Commode Transfer (QC): 5 Shower Transfer(FIM): 5 Additional Goals: 2-Verbalize Understanding, 3-ImproveStrength/Fady 1=Demonstrate adherence to instructed precautions during ADL tasks. 2=Patient will verbalize/demonstrate understanding of assistive devices/ modifications for ADL. 3=Patient will improve strength/tolerance for activity to enable patient to perform ADL's. OT Education/Plan Problem List/Assessment Pt would benefit from skilled OT to increase his independence in basic self care to allow him to safely return to his home to live alone and to decrease caregiver burden. Discharge Recommendations Plan/Recommendations: Continue POC Treatment Plan/Plan of Care Patient would benefit from OT for education, treatment and training to promote independence in ADL's, mobility, safety and/or upper extremity function for ADL' s. Plan of Care: ADL Retraining, Functional Mobility, Group Exercise/Act as Ind ( education, exercise, activity tolerance, functional activities, socialization), UE Funct Exercise/Act, UE Neuromus Re-Ed/Coord, W/C Management Training Treatment Duration: Dec 01, 2016 Frequency: Twice Daily Estimated Hrs Per Day: 1.5 hours per day Agreement: Yes Rehab Potential: Fair Time/GCodes Start Time: 10:00 Stop Time: 11:00 Total Time Billed (hr/min): 60 Billed Treatment Time visit, 35 minutes ADL, 25 minutes neuromotor THAI HOOVER OT Nov 12, 2016 12:55
--- NOTE | 2016-11-12 14:31 | Physical Therapy Daily Note ---
PT Daily Note-Current Subjective Patient in power chair pre tx, agrees to PT, has pain of 5/10. Appearance Patient is wheelchair post tx. Mental Status Patient Orientation: Normal For Age cervical collar Transfers Functional [place] Measure 0=Not Assessed/NA 4=Minimal Assistance 1=Total Assistance 5=Supervision or Setup 2=Maximal Assistance 6=Modified [place] 3=Moderate Assistance 7=Complete IndependenceIRFPAI Quality Coding Scale 6 Independent with activity with or without an assistive device 5 Patient requires set up or clean up by helper. Patient completes activity by themselves 4 Supervision or touching assist (CGA). [place] provide cues , steadying assist 3 The helper provides less than half the effort to complete the activity 2 The helper provides more than half the effort to complete the activity 1 Dependent. The helper does all the effort to complete an activity 7 Patient refused to complete or attempt activity 9 The patient did not perform the activity before the current illness or injury 88 Not attempted due to Medical conditions or safety concerns Transfers (B, C, W/C) (FIM): 3 Sit to/from Stand: 3 Bed to/from Chair: 3 Patient cannot assist with arms due to weakness. Exercises NuStep Minutes: 15 NuStep Workload: 4 Treatments transfers, functional strengthening Assessment Current Status: Fair Progress improving transfers PT Short Term Goals Short Term Goals Time Frame: Nov 10, 2016 Gait (FIM): 1 Gait Distance Comment: 10' Gait Level of Assist: 2 Gait Assistive Device: FWW, Walker Platform Wheelchair Distance: 150'x2 PT Membership Sales Manager Goals Membership Sales Manager Goals PT Nursing Home Goals Time Frame: Nov 24, 2016 Transfers (B,C,W/C) (FIM): 4 Sit to Lying (QC): 3 Lying-Sitting on Side/Bed(QC): 3 Sit to Stand (QC): 3 Rollin Roll Left to Right (QC): 3 Chair/Liy-nk-Tnumd Xfer(QC): 3 Gait (FIM): 1 Distance: 20' Walk 10 feet (QC): 2 Gait Level of Assist: 2 Gait Assistive Device: FWW, Walker Platform Wheelchair (FIM): 6 Distance: 500' Wheelchair Level of Assist: 6 Wheel 50 feet with 2 turns (QC: 6 PT Plan Problem List Problem List: Activity Tolerance, Functional Strength, Safety, Balance, Gait, Transfer, Bed Mobility, ROM Treatment/Plan Treatment Plan: Continue Plan of Care Treatment Plan: Bed Mobility, Education, Functional Activity Fady, Functional Strength, Group Therapy, Gait, Safety, Therapeutic Exercise, Transfers Treatment Duration: Nov 24, 2016 Frequency: At least 5-7 days/Wk (IRF) Estimated Hrs Per Day: 2 hours per day Patient and/or Family Agrees t: Yes Safety Risks/Education Patient Education: Transfer Techniques, Correct Positioning, Safety Issues Teaching Recipient: Patient Teaching Methods: Demonstration, Discussion Response to Teaching: Reinforcement Needed Time/GCodes Time In: 1400 Time Out: 1430 Total Billed Treatment Time: 30 Total Billed Treatment 1 visit EX 15' FA 15' CATALINA RUBI PT Nov 12, 2016 14:31
[2016-11-12 17:45] VITALS: BP 130/81
--- NOTE | 2016-11-12 17:46 | Occupational Ther Daily Note ---
OT Current Status-Daily Note Subjective Pt seen in room, up in power chair, agreeable to OT. Mental Status/Objective Functional [place] Measure 0=Not Assessed/NA 4=Minimal Assistance 1=Total Assistance 5=Supervision or Setup 2=Maximal Assistance 6=Modified [place] 3=Moderate Assistance 7=Complete [place] ADL-Treatment [place] cuff applied to patient's L hand and spoon inserted. On table top, using Dycem to hold container, he was able to scoop pudding and get it to his mouth, with some incoordination. Needed contained tipped to scoop food. He was able to lift L arm up off tabletop and also keep wrist primarily in extension. Shoulders became fatigued and he needed recovery period. Tightness noted over R scapula and gentle mobilization and stretch done to increase range so that he can manage more ADLs. Pt left up in chair, all needs met. Functional [place] Measure 0=Not Assessed/NA 4=Minimal Assistance 1=Total Assistance 5=Supervision or Setup 2=Maximal Assistance 6=Modified [place] 3=Moderate Assistance 7=Complete IndependenceIRFPAI Quality Coding Scale 6 Independent with activity with or without an assistive device 5 Patient requires set up or clean up by helper. Patient completes activity by themselves 4 Supervision or touching assist (CGA). [place] provide cues , steadying assist 3 The helper provides less than half the effort to complete the activity 2 The helper provides more than half the effort to complete the activity 1 Dependent. The helper does all the effort to complete an activity 7 Patient refused to complete or attempt activity 9 The patient did not perform the activity before the current illness or injury 88 Not attempted due to Medical conditions or safety concerns Education OT Patient Education: Modified ADL techniques, Progress toward Goal/Update tx plan, Use of adapted equipment Teaching Recipient: Patient Teaching Methods: Demonstration Response to Teaching: Return Demonstration OT Short Term Goals Short Term Goals Time Frame: Nov 17, 2016 Eating(FIM): 4 Grooming(FIM): 3 Upper Body Dressing(FIM): 3 Lower Body Dressing(FIM): 3 Toileting(FIM): 3 Toilet/Commode Transfer(FIM): 3 Shower Transfer(FIM): 3 Additional Short Term Goals: 2-Verbalize Understanding, 3-ImproveStrength/Fady 1=Demonstrate adherence to instructed precautions during ADL tasks. 2=Patient will verbalize/demonstrate understanding of assistive devices/ modifications for ADL. 3=Patient will improve strength/tolerance for activity to enable patient to perform ADL's. OT Volunteer Services Manager Goals Volunteer Services Manager Goals Time Frame: Dec 01, 2016 Eating (FIM): 5 Eating (QC): 5 Groomin Oral Hygiene (QC): 5 Bathing(FIM): 5 Shower/Bathe Self (QC): 5 Upper Body Dressing(FIM): 5 Upper Body Dressing (QC): 5 Lower Body Dressing(FIM): 5 Lower Body Dressing (QC): 5 On/Off Footwear (QC): 4 Toileting(FIM): 5 Toileting Hygiene (QC): 5 Toilet/Commode Transfer(FIM): 5 Toilet/Commode Transfer (QC): 5 Shower Transfer(FIM): 5 Additional Goals: 2-Verbalize Understanding, 3-ImproveStrength/Fady 1=Demonstrate adherence to instructed precautions during ADL tasks. 2=Patient will verbalize/demonstrate understanding of assistive devices/ modifications for ADL. 3=Patient will improve strength/tolerance for activity to enable patient to perform ADL's. OT Education/Plan Problem List/Assessment Pt would benefit from skilled OT to increase his independence in basic self care to allow him to safely return to his home to live alone and to decrease caregiver burden. Discharge Recommendations Plan/Recommendations: Continue POC Treatment Plan/Plan of Care Patient would benefit from OT for education, treatment and training to promote independence in ADL's, mobility, safety and/or upper extremity function for ADL' s. Plan of Care: ADL Retraining, Functional Mobility, Group Exercise/Act as Ind ( education, exercise, activity tolerance, functional activities, socialization), UE Funct Exercise/Act, UE Neuromus Re-Ed/Coord, W/C Management Training Treatment Duration: Dec 01, 2016 Frequency: Twice Daily Estimated Hrs Per Day: 1.5 hours per day Agreement: Yes Rehab Potential: Fair Time/GCodes Start Time: 13:00 Stop Time: 13:30 Total Time Billed (hr/min): 30 Billed Treatment Time visit, 25 minutes ADL, 5 minutes neuromotor THAI HOOVER OT Nov 12, 2016 17:46
[2016-11-12] MEDS: IRBESARTAN 150 MG (AVAPRO) TAB PO SCH (21:42)
[2016-11-13] MEDS: DIAZEPAM 5 MG (VALIUM) TABLET PO PRN ×2 (01:03→21:12)
[2016-11-13] MEDS: HYDROcodone/APAP 10 MG/325 MG (LORTAB) TAB PO PRN ×6 (02:23→23:12)
[2016-11-13 05:00] VITALS: BP 141/96
[2016-11-13] MEDS: MULTIVIT W/MINERALS TAB (THERAGRAN M) PO SCH (06:29)
[2016-11-13] MEDS: metFORMIN 500 MG (GLUCOPHAGE) TAB PO SCH ×2 (06:30→17:42)
[2016-11-13] MEDS: inSUlin (REGULAR) HUMAN 1 UNIT/0.01 ML (CHARGE PER UNIT) SC SCH ×4 (07:18→19:27)
[2016-11-13] MEDS: amLODIPine 5 MG (NORVASC) TAB PO SCH (08:07)
[2016-11-13] MEDS: POLYETHYLENE GLYCOL 17 GM (MIRALAX) PACK PO SCH ×2 (08:07→19:23)
[2016-11-13] MEDS: LACTULOSE SYRUP 10GM/15ML (ENULOSE) 30ML UDC PO SCH ×2 (08:07→21:09)
[2016-11-13] MEDS: HYDROCHLOROTHIAZIDE 25 MG (HCTZ) TAB PO SCH (08:07)
[2016-11-13] MEDS: SENNA W/DOCUSATE (SENOKOT S) TABLET PO SCH ×2 (08:07→21:08)
[2016-11-13] MEDS: MICONAZOLE 2% POWDER (DESENEX AF) 90 GM TOP SCH ×2 (08:08→21:09)
[2016-11-13] MEDS: A & D OINT 60 GM TUBE TOP SCH (08:08)
[2016-11-13] MEDS: MENTHOL/ZINC OXIDE (CALMOSEPTINE) 113 GM TUBE TOP SCH ×2 (08:11→21:13)
--- NOTE | 2016-11-13 09:01 | Physical Therapy Daily Note ---
PT Daily Note-Current Subjective Patient in bed pre tx, agrees to PT, has pain of 7/10 in right shoulder and left hip. Appearance Patient in power wheelchair post tx, he is Mod I with wheelchair mobility. Mental Status Patient Orientation: Normal For Age cervical collar Transfers Functional [place] Measure 0=Not Assessed/NA 4=Minimal Assistance 1=Total Assistance 5=Supervision or Setup 2=Maximal Assistance 6=Modified [place] 3=Moderate Assistance 7=Complete IndependenceIRFPAI Quality Coding Scale 6 Independent with activity with or without an assistive device 5 Patient requires set up or clean up by helper. Patient completes activity by themselves 4 Supervision or touching assist (CGA). [place] provide cues , steadying assist 3 The helper provides less than half the effort to complete the activity 2 The helper provides more than half the effort to complete the activity 1 Dependent. The helper does all the effort to complete an activity 7 Patient refused to complete or attempt activity 9 The patient did not perform the activity before the current illness or injury 88 Not attempted due to Medical conditions or safety concerns Transfers (B, C, W/C) (FIM): 2 Scootin Rollin Supine to/from Sit: 2 Sit to/from Stand: 3 Bed to/from Chair: 2 Patient is very unsteady with stand pivot transfer Exercises LAQ alternating for 5 min. Patient stood in the parallel bars x5 for about 3-5 min each time. Rest breaks between. Treatments transfers, functional strengthening, standing Assessment improved ability to stand from a sitting position. PT Short Term Goals Short Term Goals Time Frame: Nov 10, 2016 Gait (FIM): 1 Gait Distance Comment: 10' Gait Level of Assist: 2 Gait Assistive Device: FWW, Walker Platform Wheelchair Distance: 150'x2 PT [employer] Panels Goals [facility] Goals PT [employer] Panels Goals Time Frame: Nov 24, 2016 Transfers (B,C,W/C) (FIM): 4 Sit to Lying (QC): 3 Lying-Sitting on Side/Bed(QC): 3 Sit to Stand (QC): 3 Rollin Roll Left to Right (QC): 3 Chair/Ent-ij-Kmpsv Xfer(QC): 3 Gait (FIM): 1 Distance: 20' Walk 10 feet (QC): 2 Gait Level of Assist: 2 Gait Assistive Device: FWW, Walker Platform Wheelchair (FIM): 6 Distance: 500' Wheelchair Level of Assist: 6 Wheel 50 feet with 2 turns (QC: 6 PT Plan Problem List Problem List: Activity Tolerance, Functional Strength, Safety, Balance, Gait, Transfer, Bed Mobility, ROM Treatment/Plan Treatment Plan: Continue Plan of Care Treatment Plan: Bed Mobility, Education, Functional Activity Fady, Functional Strength, Group Therapy, Gait, Safety, Therapeutic Exercise, Transfers Treatment Duration: Nov 24, 2016 Frequency: At least 5-7 days/Wk (IRF) Estimated Hrs Per Day: 2 hours per day Patient and/or Family Agrees t: Yes Safety Risks/Education Patient Education: Transfer Techniques, Correct Positioning, Reviewed Don/Doff Brace, Safety Issues Teaching Recipient: Patient Teaching Methods: Demonstration, Discussion Response to Teaching: Reinforcement Needed Time/GCodes Time In: 800 Time Out: 900 Total Billed Treatment Time: 60 Total Billed Treatment 1 visit FA 15' EX 45' CATALINA RUBI PT Nov 13, 2016 09:01
--- NOTE | 2016-11-13 09:14 | PM & R (SOAP) Progress Note ---
Subjective Time Seen by Provider: 08:10 Subjective/Events-last exam Patient was seen in his room this Am OT and Nursing working with patient on self feeds as panel monitor strength impaired bilaterally. Objective Exam Last Set of Vital Signs Vital Signs Date Time Temp Pulse Resp B/P (MAP) Pulse Ox O2 Delivery O2 Flow Rate FiO2 11/13/16 08:48 Room Air 11/13/16 05:00 97.4 91 18 141/96 97 Capillary Refill : I&O Intake and Output 11/13/16 00:00 Intake Total 2350 ml Output Total 1600 ml Balance 750 ml Intake Oral 2350 ml Output Urine Total 1600 ml General: Alert, Oriented X3, Cooperative, No Acute Distress HEENT: Atraumatic, PERRLA, EOMI, Mucous Memb Moist/[place] Neck: Supple, Other (inciasion healing well C Collar in place) Lungs: Clear to Auscultation Heart: Regular Rate Abdomen: Normal Bowel Sounds Extremities: Other (trace edema rt hand) Skin: Other (rt heel wrapped) Neuro: Other (2-3 strength rt UE Numbness rt hand) Results Lab Laboratory Tests 11/10/16 10:55: Glucometer 161H 11/10/16 15:39: Glucometer 116H 11/10/16 20:33: Glucometer 86 11/11/16 05:32: Glucometer 137H 11/11/16 11:05: Glucometer 164H 11/11/16 15:50: Glucometer 153H 11/11/16 20:54: Glucometer 206H 11/12/16 06:55: Glucometer 122H 11/12/16 11:04: Glucometer 138H 11/12/16 15:54: Glucometer 196H 11/12/16 21:05: Glucometer 138H 11/13/16 05:04: Glucometer 135H Assessment/Plan Assessment Cervical spine spondylosis with myelopathy s/p decompression DR Atkinson Dysphagia improved diet advanced- to regular consistency discussed with RN AMY on cpap HTN controlled DM with episode of hypoglycemia Dr juarez has adjusted insulin -improved HLP Intolerance to oxy-disturbed sleep Pressure sore rt heel Plan Continue PT/OT/Pain management F/U with Hospitalist and DR Atkinson as per their schedule Trend Accucheks and adjust insulin as needed Pain managemnet Changed meds-improved Wound care reconsult to check rt heel -see orders-done as per above Team Conference held 11-11-16-See report for full functional update and POC and ELOS Patient doing better with switch to hydrocodone for pain-less side effects reported. JOSEY SALINAS MD Nov 13, 2016 09:14
--- NOTE | 2016-11-13 10:52 | Occupational Ther Daily Note ---
OT Current Status-Daily Note Subjective Pt seen in room, up in power chair, agreeable to OT. No pain but reported some discomfort later with stretches. Appearance Alert, cooperative Mental Status/Objective Functional [place] Measure 0=Not Assessed/NA 4=Minimal Assistance 1=Total Assistance 5=Supervision or Setup 2=Maximal Assistance 6=Modified [place] 3=Moderate Assistance 7=Complete [place] ADL-Treatment Functional [place] Measure 0=Not Assessed/NA 4=Minimal Assistance 1=Total Assistance 5=Supervision or Setup 2=Maximal Assistance 6=Modified [place] 3=Moderate Assistance 7=Complete IndependenceIRFPAI Quality Coding Scale 6 Independent with activity with or without an assistive device 5 Patient requires set up or clean up by helper. Patient completes activity by themselves 4 Supervision or touching assist (CGA). [place] provide cues , steadying assist 3 The helper provides less than half the effort to complete the activity 2 The helper provides more than half the effort to complete the activity 1 Dependent. The helper does all the effort to complete an activity 7 Patient refused to complete or attempt activity 9 The patient did not perform the activity before the current illness or injury 88 Not attempted due to Medical conditions or safety concerns Toileting (FIM): 1 (Pt attempted to pull pants up using hands while standing with lift but did not have adequate power lineman technician to tug shorts. Help with hygiene. BSC) Toilet/Commode Transfer (FIM): 1 (Sit to stnad lift to BSC. Pt helps position feet in lift, actively extends hips while standing to transfer on/off BSC) Other Treatment Discussed R shoulder pain with pt and PT and it was suggested to try e-stim R shoulder. Dr. Ricks agreed to order for PT. AAROM and AROM bilat UEs, 10 reps each area. Has active wrist ext bilat and can make a fist L hand but not close it completely. R hand a little edematous today. painful to PROM, Pt did R sided shoulder flex stretch and muscle spasms triggered in triceps and forearm. Warm blanket applied R shoulder during PROM/AAROM for comfort. Pt seems pleased with progress. Pt returned to room, toileted and transferred back in to bed with nursing assistance, all needs met. Education OT Patient Education: Exercise program, Modified ADL techniques, Progress toward Goal/Update tx plan, Purpose of tx/functional activities Teaching Recipient: Patient Teaching Methods: Discussion Response to Teaching: Verbalize Understanding OT Short Term Goals Short Term Goals Time Frame: Nov 17, 2016 Eating(FIM): 4 Grooming(FIM): 3 Upper Body Dressing(FIM): 3 Lower Body Dressing(FIM): 3 Toileting(FIM): 3 Toilet/Commode Transfer(FIM): 3 Shower Transfer(FIM): 3 Additional Short Term Goals: 2-Verbalize Understanding, 3-ImproveStrength/Fady 1=Demonstrate adherence to instructed precautions during ADL tasks. 2=Patient will verbalize/demonstrate understanding of assistive devices/ modifications for ADL. 3=Patient will improve strength/tolerance for activity to enable patient to perform ADL's. OT Printed Circuit Photographer Goals Printed Circuit Photographer Goals Time Frame: Dec 01, 2016 Eating (FIM): 5 Eating (QC): 5 Groomin Oral Hygiene (QC): 5 Bathing(FIM): 5 Shower/Bathe Self (QC): 5 Upper Body Dressing(FIM): 5 Upper Body Dressing (QC): 5 Lower Body Dressing(FIM): 5 Lower Body Dressing (QC): 5 On/Off Footwear (QC): 4 Toileting(FIM): 5 Toileting Hygiene (QC): 5 Toilet/Commode Transfer(FIM): 5 Toilet/Commode Transfer (QC): 5 Shower Transfer(FIM): 5 Additional Goals: 2-Verbalize Understanding, 3-ImproveStrength/Fady 1=Demonstrate adherence to instructed precautions during ADL tasks. 2=Patient will verbalize/demonstrate understanding of assistive devices/ modifications for ADL. 3=Patient will improve strength/tolerance for activity to enable patient to perform ADL's. OT Education/Plan Problem List/Assessment Pt would benefit from skilled OT to increase his independence in basic self care to allow him to safely return to his home to live alone and to decrease caregiver burden. Discharge Recommendations Plan/Recommendations: Continue POC Treatment Plan/Plan of Care Patient would benefit from OT for education, treatment and training to promote independence in ADL's, mobility, safety and/or upper extremity function for ADL' s. Plan of Care: ADL Retraining, Functional Mobility, Group Exercise/Act as Ind ( education, exercise, activity tolerance, functional activities, socialization), UE Funct Exercise/Act, UE Neuromus Re-Ed/Coord, W/C Management Training Treatment Duration: Dec 01, 2016 Frequency: Twice Daily Estimated Hrs Per Day: 1.5 hours per day Agreement: Yes Rehab Potential: Fair Time/GCodes Start Time: 09:30 Stop Time: 10:30 Total Time Billed (hr/min): 60 Billed Treatment Time visit, 45 minutes exercise, 15 minutes ADL THAI HOOVER OT Nov 13, 2016 10:52
--- NOTE | 2016-11-13 14:38 | Therapy Group Daily Note ---
Therapy Daily Group Note Other/Notes Each patient participated in group therapy in the common area of the rehab floor. Each patient ambulated or was transported to the common area of rehab and they sat in a saxman. Then each patient introduced themselves, stated where they were from and had to answer a question that involved memory and critical thinking. Patients then participated in group/patient led upper and lower strengthening exercises, some upper extremity exercises with a theraband. Finally, patients were educated on the role of different assistive devices with ambulation. Finally, each patient ambulated or was transported back to their room and put in bed or chair with nurse call, phone, tray, all needs met. Start Time: 13:00 Stop Time: 14:15 Total Billed Treatment Time: 75 Total Billed Treatment 1 visit GRP 75' CATALINA RUBI PT Nov 13, 2016 14:38
[2016-11-13 17:45] VITALS: BP 143/80
[2016-11-13] MEDS: IRBESARTAN 150 MG (AVAPRO) TAB PO SCH (21:08)
[2016-11-14] MEDS: HYDROcodone/APAP 10 MG/325 MG (LORTAB) TAB PO PRN ×6 (03:09→22:27)
[2016-11-14 05:00] VITALS: BP 127/80
[2016-11-14] MEDS: metFORMIN 500 MG (GLUCOPHAGE) TAB PO SCH ×2 (06:00→17:26)
[2016-11-14] MEDS: MULTIVIT W/MINERALS TAB (THERAGRAN M) PO SCH (06:00)
[2016-11-14] MEDS: amLODIPine 5 MG (NORVASC) TAB PO SCH (09:53)
[2016-11-14] MEDS: HYDROCHLOROTHIAZIDE 25 MG (HCTZ) TAB PO SCH (09:54)
[2016-11-14] MEDS: SENNA W/DOCUSATE (SENOKOT S) TABLET PO SCH ×2 (09:54→22:27)
[2016-11-14] MEDS: inSUlin (REGULAR) HUMAN 1 UNIT/0.01 ML (CHARGE PER UNIT) SC SCH ×4 (09:55→17:27)
[2016-11-14] MEDS: LACTULOSE SYRUP 10GM/15ML (ENULOSE) 30ML UDC PO SCH ×2 (09:55→22:28)
[2016-11-14] MEDS: POLYETHYLENE GLYCOL 17 GM (MIRALAX) PACK PO SCH ×2 (09:55→19:55)
--- NOTE | 2016-11-14 11:16 | Physical Therapy Daily Note ---
PT Daily Note-Current Subjective Pt. up in power chair, agrees to Rx. Wants to gas meter installer parallel bars and then back to bed. Pain Numeric Pain Scale: 3 Location: Right Location Body Site: Thigh Pain Description: Ache Mental Status Patient Orientation: Normal For Age Transfers Functional [place] Measure 0=Not Assessed/NA 4=Minimal Assistance 1=Total Assistance 5=Supervision or Setup 2=Maximal Assistance 6=Modified [place] 3=Moderate Assistance 7=Complete IndependenceIRFPAI Quality Coding Scale 6 Independent with activity with or without an assistive device 5 Patient requires set up or clean up by helper. Patient completes activity by themselves 4 Supervision or touching assist (CGA). [place] provide cues , steadying assist 3 The helper provides less than half the effort to complete the activity 2 The helper provides more than half the effort to complete the activity 1 Dependent. The helper does all the effort to complete an activity 7 Patient refused to complete or attempt activity 9 The patient did not perform the activity before the current illness or injury 88 Not attempted due to Medical conditions or safety concerns Transfers (B, C, W/C) (FIM): 2 Scootin Rollin Supine to/from Sit: 3 Sit to/from Stand: 2 SPT power chair to bed mod to max of 2 Wheelchair Training Does the Pt Use a Wheelchair?: Yes Wheelchair (FIM): 3 Wheelchair Distance: 3=150 ft Wheelchair Level of Assist: 3 Type of Wheelchair: Motorized pt. required much assist this date for all aspects of chair mobility, ran in to several items getting to gym Exercises Seated Therapy Exercises: Long arc quads Seated Reps: 25 Standing: Mini squats Standing Reps: 12 Treatments sit to stand sin parallel bars x 3 approx 1 min each stance to fatigue. SPT chair to bed mod to max of 2 Assessment Current Status: Good Progress PT Short Term Goals Short Term Goals Time Frame: Nov 10, 2016 Gait (FIM): 1 Gait Distance Comment: 10' Gait Level of Assist: 2 Gait Assistive Device: FWW, Walker Platform Wheelchair Distance: 150'x2 PT Shelter Goals Car Salesman Goals PT Shelter Goals Time Frame: Nov 24, 2016 Transfers (B,C,W/C) (FIM): 4 Sit to Lying (QC): 3 Lying-Sitting on Side/Bed(QC): 3 Sit to Stand (QC): 3 Rollin Roll Left to Right (QC): 3 Chair/[id number]-[id number] Xfer(QC): 3 Gait (FIM): 1 Distance: 20' Walk 10 feet (QC): 2 Gait Level of Assist: 2 Gait Assistive Device: FWW, Walker Platform Wheelchair (FIM): 6 Distance: 500' Wheelchair Level of Assist: 6 Wheel 50 feet with 2 turns (QC: 6 PT Plan Treatment/Plan Treatment Plan: Continue Plan of Care Treatment Plan: Bed Mobility, Education, Functional Activity Fady, Functional Strength, Group Therapy, Gait, Safety, Therapeutic Exercise, Transfers Treatment Duration: Nov 24, 2016 Frequency: At least 5-7 days/Wk (IRF) Estimated Hrs Per Day: 2 hours per day Patient and/or Family Agrees t: Yes Safety Risks/Education Patient Education: Transfer Techniques, Correct Positioning, W/C Management, Safety Issues Teaching Recipient: Patient Teaching Methods: Demonstration, Discussion Response to Teaching: Verbalize Understanding, Return Demonstration, Reinforcement Needed Time/GCodes Time In: 915 Time Out: 955 Total Billed Treatment Time: 40 Total Billed Treatment 1,FA40m G Codes Necessary: JONATHON Calles [facility] Nov 14, 2016 11:16
[2016-11-14] MEDS: MENTHOL/ZINC OXIDE (CALMOSEPTINE) 113 GM TUBE TOP SCH ×2 (13:01→22:29)
[2016-11-14] MEDS: A & D OINT 60 GM TUBE TOP SCH (13:01)
[2016-11-14] MEDS: MICONAZOLE 2% POWDER (DESENEX AF) 90 GM TOP SCH ×2 (13:03→22:28)
[2016-11-14 18:57] VITALS: BP 136/83
[2016-11-14] MEDS: DIAZEPAM 5 MG (VALIUM) TABLET PO PRN ×2 (21:42→22:27)
[2016-11-14] MEDS: IRBESARTAN 150 MG (AVAPRO) TAB PO SCH (22:27)
[2016-11-15] MEDS: HYDROcodone/APAP 10 MG/325 MG (LORTAB) TAB PO PRN ×4 (02:15→18:13)
[2016-11-15 05:23] VITALS: BP 150/91
[2016-11-15] MEDS: metFORMIN 500 MG (GLUCOPHAGE) TAB PO SCH ×2 (06:15→18:12)
[2016-11-15] MEDS: MULTIVIT W/MINERALS TAB (THERAGRAN M) PO SCH (06:15)
[2016-11-15] MEDS: inSUlin (REGULAR) HUMAN 1 UNIT/0.01 ML (CHARGE PER UNIT) SC SCH ×3 (08:43→19:00)
[2016-11-15] MEDS: SENNA W/DOCUSATE (SENOKOT S) TABLET PO SCH ×2 (08:43→20:34)
[2016-11-15] MEDS: amLODIPine 5 MG (NORVASC) TAB PO SCH (08:43)
[2016-11-15] MEDS: HYDROCHLOROTHIAZIDE 25 MG (HCTZ) TAB PO SCH (08:43)
[2016-11-15] MEDS: LACTULOSE SYRUP 10GM/15ML (ENULOSE) 30ML UDC PO SCH ×2 (08:48→20:34)
[2016-11-15] MEDS: MENTHOL/ZINC OXIDE (CALMOSEPTINE) 113 GM TUBE TOP SCH ×2 (08:49→20:37)
[2016-11-15] MEDS: POLYETHYLENE GLYCOL 17 GM (MIRALAX) PACK PO SCH ×2 (08:49→20:36)
[2016-11-15] MEDS: MICONAZOLE 2% POWDER (DESENEX AF) 90 GM TOP SCH ×2 (08:49→20:37)
[2016-11-15] MEDS: A & D OINT 60 GM TUBE TOP SCH (09:00)
[2016-11-15 18:00] VITALS: BP 148/78
[2016-11-15] MEDS: IRBESARTAN 150 MG (AVAPRO) TAB PO SCH (20:34)
[2016-11-15] MEDS: DIAZEPAM 5 MG (VALIUM) TABLET PO PRN (20:36)
[2016-11-16] MEDS: HYDROcodone/APAP 10 MG/325 MG (LORTAB) TAB PO PRN ×6 (00:02→20:32)
[2016-11-16 04:18] VITALS: BP 114/73
[2016-11-16] MEDS: MULTIVIT W/MINERALS TAB (THERAGRAN M) PO SCH (06:18)
[2016-11-16] MEDS: metFORMIN 500 MG (GLUCOPHAGE) TAB PO SCH ×2 (06:18→18:24)
[2016-11-16] MEDS: amLODIPine 5 MG (NORVASC) TAB PO SCH (08:28)
[2016-11-16] MEDS: HYDROCHLOROTHIAZIDE 25 MG (HCTZ) TAB PO SCH (08:28)
[2016-11-16] MEDS: SENNA W/DOCUSATE (SENOKOT S) TABLET PO SCH ×2 (08:28→20:24)
[2016-11-16] MEDS: LACTULOSE SYRUP 10GM/15ML (ENULOSE) 30ML UDC PO SCH ×2 (08:29→20:25)
[2016-11-16] MEDS: POLYETHYLENE GLYCOL 17 GM (MIRALAX) PACK PO SCH ×2 (08:30→20:25)
[2016-11-16] MEDS: MICONAZOLE 2% POWDER (DESENEX AF) 90 GM TOP SCH ×2 (08:31→20:24)
[2016-11-16] MEDS: inSUlin (REGULAR) HUMAN 1 UNIT/0.01 ML (CHARGE PER UNIT) SC SCH ×3 (08:35→18:25)
--- NOTE | 2016-11-16 09:56 | Physical Therapy Daily Note ---
PT Daily Note-Current Subjective Patient in bed pre tx, agrees to PT, has pain of 6/10 in right shoulder and 7/ 10 in left hip. Appearance Patient in power chair post tx, he is mod I with wheelchair mobility. Mental Status Patient Orientation: Normal For Age cervical collar Transfers Functional [place] Measure 0=Not Assessed/NA 4=Minimal Assistance 1=Total Assistance 5=Supervision or Setup 2=Maximal Assistance 6=Modified [place] 3=Moderate Assistance 7=Complete IndependenceIRFPAI Quality Coding Scale 6 Independent with activity with or without an assistive device 5 Patient requires set up or clean up by helper. Patient completes activity by themselves 4 Supervision or touching assist (CGA). [place] provide cues , steadying assist 3 The helper provides less than half the effort to complete the activity 2 The helper provides more than half the effort to complete the activity 1 Dependent. The helper does all the effort to complete an activity 7 Patient refused to complete or attempt activity 9 The patient did not perform the activity before the current illness or injury 88 Not attempted due to Medical conditions or safety concerns Transfers (B, C, W/C) (FIM): 2 Scootin Rollin Supine to/from Sit: 2 Sit to/from Stand: 3 Bed to/from Chair: 3 improved sit to stand and stand pivot transfer, still mod assist but he needs a little less assist, patient had to perform a stand pivot transfer 5 times (from bed to chair, chair to stepper, stepper to chair, chair to table, table to chair ) Exercises bilateral lower extremity stretching in all planes, patient has a lot of pain with left hip flexion, also right shoulder and elbow ROM NuStep Minutes: 15 NuStep Workload: 4 Treatments bed mobility and transfers, functional strengthening, ROM/stretching Assessment Current Status: Fair Progress improved transfers PT Short Term Goals Short Term Goals Time Frame: Nov 10, 2016 Gait (FIM): 1 Gait Distance Comment: 10' Gait Level of Assist: 2 Gait Assistive Device: FWW, Walker Platform Wheelchair Distance: 150'x2 PT Aerospace Technician Goals Halfway Goals PT Halfway Goals Time Frame: Nov 24, 2016 Transfers (B,C,W/C) (FIM): 4 Sit to Lying (QC): 3 Lying-Sitting on Side/Bed(QC): 3 Sit to Stand (QC): 3 Rollin Roll Left to Right (QC): 3 Chair/Tsb-ol-Sluff Xfer(QC): 3 Gait (FIM): 1 Distance: 20' Walk 10 feet (QC): 2 Gait Level of Assist: 2 Gait Assistive Device: FWW, Walker Platform Wheelchair (FIM): 6 Distance: 500' Wheelchair Level of Assist: 6 Wheel 50 feet with 2 turns (QC: 6 PT Plan Problem List Problem List: Activity Tolerance, Functional Strength, Safety, Balance, Gait, Transfer, Bed Mobility, ROM Treatment/Plan Treatment Plan: Continue Plan of Care Treatment Plan: Bed Mobility, Education, Functional Activity Fady, Functional Strength, Group Therapy, Gait, Safety, Therapeutic Exercise, Transfers Treatment Duration: Nov 24, 2016 Frequency: At least 5-7 days/Wk (IRF) Estimated Hrs Per Day: 2 hours per day Patient and/or Family Agrees t: Yes Safety Risks/Education Patient Education: Transfer Techniques, Correct Positioning, Safety Issues Teaching Recipient: Patient Teaching Methods: Demonstration, Discussion Response to Teaching: Reinforcement Needed Time/GCodes Time In: 900 Time Out: 1000 Total Billed Treatment Time: 60 Total Billed Treatment 1 visit EX 30' FA 30' CATALINA RUBI PT Nov 16, 2016 09:56
[2016-11-16] MEDS: A & D OINT 60 GM TUBE TOP SCH (12:09)
[2016-11-16] MEDS: MENTHOL/ZINC OXIDE (CALMOSEPTINE) 113 GM TUBE TOP SCH ×2 (12:09→20:24)
--- NOTE | 2016-11-16 14:50 | Occupational Ther Daily Note ---
OT Current Status-Daily Note Subjective Pt seen in room, up in power chair, agreeable to OT. Pain in R shoulder with movement, not rated. Appearance Alert, cooperative, occasionally smiling and joking. Mental Status/Objective Functional [place] Measure 0=Not Assessed/NA 4=Minimal Assistance 1=Total Assistance 5=Supervision or Setup 2=Maximal Assistance 6=Modified [place] 3=Moderate Assistance 7=Complete [place] ADL-Treatment Pt had significant drainage from incision back of neck and required clothing changed. Max assist to doff and don shirt, with pt able to help place arms in shirt but unable to pull shirt up over head or pull it down due to decreased and function. Pt propelled power chair to bathroom and was able to position chair close to accessible sink. Today he used universal cuff to help hold on to razor and toothbrush. The cuff seemed to work better for toothbrushing since he was able to brush all of his teeth with setup, help to rinse mouth. He was not able to shave much more than 25% of his face, having more difficulty positioning razor. Today he could, however, reach to wash all of his face including eyes, when L arm propped up on counter top. Functional [place] Measure 0=Not Assessed/NA 4=Minimal Assistance 1=Total Assistance 5=Supervision or Setup 2=Maximal Assistance 6=Modified [place] 3=Moderate Assistance 7=Complete IndependenceIRFPAI Quality Coding Scale 6 Independent with activity with or without an assistive device 5 Patient requires set up or clean up by helper. Patient completes activity by themselves 4 Supervision or touching assist (CGA). [place] provide cues , steadying assist 3 The helper provides less than half the effort to complete the activity 2 The helper provides more than half the effort to complete the activity 1 Dependent. The helper does all the effort to complete an activity 7 Patient refused to complete or attempt activity 9 The patient did not perform the activity before the current illness or injury 88 Not attempted due to Medical conditions or safety concerns Other Treatment Pt took himself to the gym. With L hand, he was able to reach for, grasp and place cones in various locations, only dropping them about 25% of the time. Focus on cues to extend wrist to increase grasp strength. Unable to maintain hold on cones with R hand. Demonstrated active elbow flexion against gravity but with no resistance. Gross grasp but not in complete range R hand. Sometimes he tries too hard and has overflow movement of R shoulder and then pain. Trigger point pain R scapula, responded to gentle stretching and pressure. Pt took himself back to room and was helped to bed, using sit to stand lift after therapy, all needs met. Education OT Patient Education: Progress toward Goal/Update tx plan, Purpose of tx/ functional activities Teaching Recipient: Patient Teaching Methods: Demonstration, Discussion Response to Teaching: Verbalize Understanding, Return Demonstration OT Short Term Goals Short Term Goals Time Frame: Nov 17, 2016 Eating(FIM): 4 Grooming(FIM): 3 Upper Body Dressing(FIM): 3 Lower Body Dressing(FIM): 3 Toileting(FIM): 3 Toilet/Commode Transfer(FIM): 3 Shower Transfer(FIM): 3 Additional Short Term Goals: 2-Verbalize Understanding, 3-ImproveStrength/Fady 1=Demonstrate adherence to instructed precautions during ADL tasks. 2=Patient will verbalize/demonstrate understanding of assistive devices/ modifications for ADL. 3=Patient will improve strength/tolerance for activity to enable patient to perform ADL's. OT Warp Hauler Goals Warp Hauler Goals Time Frame: Dec 01, 2016 Eating (FIM): 5 Eating (QC): 5 Groomin Oral Hygiene (QC): 5 Bathing(FIM): 5 Shower/Bathe Self (QC): 5 Upper Body Dressing(FIM): 5 Upper Body Dressing (QC): 5 Lower Body Dressing(FIM): 5 Lower Body Dressing (QC): 5 On/Off Footwear (QC): 4 Toileting(FIM): 5 Toileting Hygiene (QC): 5 Toilet/Commode Transfer(FIM): 5 Toilet/Commode Transfer (QC): 5 Shower Transfer(FIM): 5 Additional Goals: 2-Verbalize Understanding, 3-ImproveStrength/Fady 1=Demonstrate adherence to instructed precautions during ADL tasks. 2=Patient will verbalize/demonstrate understanding of assistive devices/ modifications for ADL. 3=Patient will improve strength/tolerance for activity to enable patient to perform ADL's. OT Education/Plan Problem List/Assessment Pt would benefit from skilled OT to increase his independence in basic self care to allow him to safely return to his home to live alone and to decrease caregiver burden. Discharge Recommendations Plan/Recommendations: Continue POC Treatment Plan/Plan of Care Patient would benefit from OT for education, treatment and training to promote independence in ADL's, mobility, safety and/or upper extremity function for ADL' s. Plan of Care: ADL Retraining, Functional Mobility, Group Exercise/Act as Ind ( education, exercise, activity tolerance, functional activities, socialization), UE Funct Exercise/Act, UE Neuromus Re-Ed/Coord, W/C Management Training Treatment Duration: Dec 01, 2016 Frequency: Twice Daily Estimated Hrs Per Day: 1.5 hours per day Agreement: Yes Rehab Potential: Fair Time/GCodes Start Time: 10:45 Stop Time: 11:45 Total Time Billed (hr/min): 60 Billed Treatment Time visit, 30 minutes ADL, 30 minutes neuromotor THAI HOOVER OT Nov 16, 2016 14:50
--- NOTE | 2016-11-16 14:55 | Therapy Group Daily Note ---
Therapy Daily Group Note Patient Education Topic Fall Prevention Exercises LE Seated Exercise, Other Other/Notes Pt was an active participant in OT/PT group. He brought himself to the group in his power chair. He introduced himself to the group by sharing his favorite vacation spot. He did seated LE exercises and participated in group education/ discussion on fall prevention. He did a memory activity with the group and was successful in recalling items on board. He was able to tolerate the increased activity time in preparation for discharge planning. Pt took himself back to his room, all needs met. Start Time: 12:45 Stop Time: 14:00 Total Billed Treatment Time: 75 Total Billed Treatment visit, group 75 minutes THAI HOOVER OT Nov 16, 2016 14:55
[2016-11-16 18:20] VITALS: BP 143/91
[2016-11-16] MEDS: IRBESARTAN 150 MG (AVAPRO) TAB PO SCH (20:24)
--- NOTE | 2016-11-16 20:53 | PM & R (SOAP) Progress Note ---
Subjective Time Seen by Provider: 07:50 Subjective/Events-last exam Patient was seen in his room this AM Patient Mod to max assist for transfers Objective Exam Last Set of Vital Signs Vital Signs Date Time Temp Pulse Resp B/P (MAP) Pulse Ox O2 Delivery O2 Flow Rate FiO2 11/16/16 18:20 98.4 97 16 143/91 97 Room Air Capillary Refill : I&O Intake and Output 11/16/16 00:00 Intake Total 1700 ml Output Total 1850 ml Balance -150 ml Intake Oral 1700 ml Output Urine Total 1850 ml # Bowel Movements 1 General: Alert, Oriented X3, Cooperative, No Acute Distress HEENT: Atraumatic, PERRLA, EOMI, Mucous Memb Moist/Rafael Hernandez Neck: Supple, Other (inciasion healing well C Collar in place) Lungs: Clear to Auscultation Heart: Regular Rate Abdomen: Normal Bowel Sounds Extremities: Other (trace edema rt hand) Skin: Other (rt heel wrapped) Neuro: Other (2-3 strength rt UE Numbness rt hand) Results Lab Laboratory Tests 11/13/16 21:08: Glucometer 212H 11/14/16 05:48: Glucometer 120H 11/14/16 12:33: Glucometer 147H 11/14/16 16:32: Glucometer 114H 11/14/16 21:27: Glucometer 112H 11/15/16 05:11: Glucometer 131H 11/15/16 12:47: Glucometer 272H 11/15/16 16:45: Glucometer 164H 11/15/16 20:51: Glucometer 143H 11/16/16 06:17: Glucometer 130H 11/16/16 11:05: Glucometer 163H 11/16/16 18:17: Glucometer 171H Assessment/Plan Assessment Cervical spine spondylosis with myelopathy s/p decompression DR Atkinson Dysphagia improved diet advanced- to regular consistency discussed with RN AMY on cpap HTN controlled DM with episode of hypoglycemia Dr juarez has adjusted insulin -improved HLP Intolerance to oxy-disturbed sleep Pressure sore rt heel Plan Continue PT/OT/Pain management F/U with Hospitalist and DR Atkinson as per their schedule Trend Accucheks and adjust insulin as needed Pain managemnet Changed meds-improved Wound care reconsult to check rt heel -see orders-done as per abov Patient doing better with switch to hydrocodone for pain-less side effects reported. Next Team Conference 11/18/16 JOSEY SALINAS MD Nov 16, 2016 20:53
[2016-11-17] MEDS: HYDROcodone/APAP 10 MG/325 MG (LORTAB) TAB PO PRN ×6 (00:34→21:35)
[2016-11-17 05:17] VITALS: BP 139/82
[2016-11-17] MEDS: metFORMIN 500 MG (GLUCOPHAGE) TAB PO SCH ×2 (05:52→17:32)
[2016-11-17] MEDS: MULTIVIT W/MINERALS TAB (THERAGRAN M) PO SCH (05:52)
[2016-11-17] MEDS: inSUlin (REGULAR) HUMAN 1 UNIT/0.01 ML (CHARGE PER UNIT) SC SCH ×3 (06:03→17:34)
[2016-11-17] MEDS: HYDROCHLOROTHIAZIDE 25 MG (HCTZ) TAB PO SCH (09:56)
[2016-11-17] MEDS: SENNA W/DOCUSATE (SENOKOT S) TABLET PO SCH ×2 (09:56→20:10)
[2016-11-17] MEDS: amLODIPine 5 MG (NORVASC) TAB PO SCH (09:56)
[2016-11-17] MEDS: LACTULOSE SYRUP 10GM/15ML (ENULOSE) 30ML UDC PO SCH ×2 (09:58→20:10)
--- NOTE | 2016-11-17 10:00 | Physical Therapy Daily Note ---
PT Daily Note-Current Subjective Patient in power wheelchair pre tx, agrees to PT. Has pain of 5/10 in right shoulder and 7/10 in left hip. Patient has been complaining about pain in his right shoulder and would like to try estim to help reduce pain. Appearance Patient in power chair post tx, he is mod I with wheelchair mobility Mental Status Patient Orientation: Normal For Age cervical collar Transfers Functional [place] Measure 0=Not Assessed/NA 4=Minimal Assistance 1=Total Assistance 5=Supervision or Setup 2=Maximal Assistance 6=Modified [place] 3=Moderate Assistance 7=Complete IndependenceIRFPAI Quality Coding Scale 6 Independent with activity with or without an assistive device 5 Patient requires set up or clean up by helper. Patient completes activity by themselves 4 Supervision or touching assist (CGA). [place] provide cues , steadying assist 3 The helper provides less than half the effort to complete the activity 2 The helper provides more than half the effort to complete the activity 1 Dependent. The helper does all the effort to complete an activity 7 Patient refused to complete or attempt activity 9 The patient did not perform the activity before the current illness or injury 88 Not attempted due to Medical conditions or safety concerns Transfers (B, C, W/C) (FIM): 2 Scootin Rollin Supine to/from Sit: 2 Sit to/from Stand: 3 Bed to/from Chair: 3 Gait Training Gait (FIM): 1 Distance: 5' Gait Level of Assist: 3 Gait Persons Needed: 1 Gait Assistive Device: Walker Platform Patient ambulated 5' with a bilateral platform walker with min-mod assist. He is slightly retropulsive. Exercises Seated Therapy Exercises: Ankle pumps, Hip flexion Seated Reps: 20 LAQ alternating for 5 min Treatments bed mobility, transfers, ambulation, functional strengthening, interferential estim and MHP to right shoulder for 15 min Assessment Current Status: Fair Progress ambulated with a bilateral platform walker today PT Short Term Goals Short Term Goals Time Frame: Nov 10, 2016 Gait (FIM): 1 Gait Distance Comment: 10' Gait Level of Assist: 2 Gait Assistive Device: FWW, Walker Platform Wheelchair Distance: 150'x2 PT Commercial Loan Administrator Goals Commercial Loan Administrator Goals PT Commercial Loan Administrator Goals Time Frame: Nov 24, 2016 Transfers (B,C,W/C) (FIM): 4 Sit to Lying (QC): 3 Lying-Sitting on Side/Bed(QC): 3 Sit to Stand (QC): 3 Rollin Roll Left to Right (QC): 3 Chair/[place] Xfer(QC): 3 Gait (FIM): 1 Distance: 20' Walk 10 feet (QC): 2 Gait Level of Assist: 2 Gait Assistive Device: FWW, Walker Platform Wheelchair (FIM): 6 Distance: 500' Wheelchair Level of Assist: 6 Wheel 50 feet with 2 turns (QC: 6 PT Plan Problem List Problem List: Activity Tolerance, Functional Strength, Safety, Balance, Gait, Transfer, Bed Mobility, ROM Treatment/Plan Treatment Plan: Continue Plan of Care Treatment Plan: Bed Mobility, Education, Functional Activity Fady, Functional Strength, Group Therapy, Gait, Safety, Therapeutic Exercise, Transfers Treatment Duration: Nov 24, 2016 Frequency: At least 5-7 days/Wk (IRF) Estimated Hrs Per Day: 2 hours per day Patient and/or Family Agrees t: Yes Safety Risks/Education Patient Education: Gait Training, Transfer Techniques, Correct Positioning, Safety Issues Teaching Recipient: Patient Teaching Methods: Demonstration, Discussion Response to Teaching: Reinforcement Needed Time/GCodes Time In: 900 Time Out: 1000 Total Billed Treatment Time: 60 Total Billed Treatment 1 visit ES 15' GT 15' EX 15' FA 15' CATALINA RUBI PT Nov 17, 2016 10:00
[2016-11-17] MEDS: POLYETHYLENE GLYCOL 17 GM (MIRALAX) PACK PO SCH ×2 (10:01→20:10)
[2016-11-17] MEDS: DIAZEPAM 5 MG (VALIUM) TABLET PO PRN (10:06)
[2016-11-17] MEDS: MICONAZOLE 2% POWDER (DESENEX AF) 90 GM TOP SCH ×2 (11:06→20:11)
[2016-11-17] MEDS: A & D OINT 60 GM TUBE TOP SCH (11:06)
[2016-11-17] MEDS: MENTHOL/ZINC OXIDE (CALMOSEPTINE) 113 GM TUBE TOP SCH ×2 (11:09→20:10)
--- NOTE | 2016-11-17 11:19 | Occupational Ther Daily Note ---
OT Current Status-Daily Note Subjective Pt seen in room, up in power chair, agreeable to OT. Pain continues R scapular region, with some UE movement, not rated. Appearance Alert, cooperative Mental Status/Objective Functional [place] Measure 0=Not Assessed/NA 4=Minimal Assistance 1=Total Assistance 5=Supervision or Setup 2=Maximal Assistance 6=Modified [place] 3=Moderate Assistance 7=Complete [place] ADL-Treatment Pt propelled w/c to bathroom and was able to position chair at sink without help (except to hold door open). Functional [place] Measure 0=Not Assessed/NA 4=Minimal Assistance 1=Total Assistance 5=Supervision or Setup 2=Maximal Assistance 6=Modified [place] 3=Moderate Assistance 7=Complete IndependenceIRFPAI Quality Coding Scale 6 Independent with activity with or without an assistive device 5 Patient requires set up or clean up by helper. Patient completes activity by themselves 4 Supervision or touching assist (CGA). [place] provide cues , steadying assist 3 The helper provides less than half the effort to complete the activity 2 The helper provides more than half the effort to complete the activity 1 Dependent. The helper does all the effort to complete an activity 7 Patient refused to complete or attempt activity 9 The patient did not perform the activity before the current illness or injury 88 Not attempted due to Medical conditions or safety concerns Grooming (FIM): 4 (Pt was able to hold toothbrush in L hand, using universal cuff, and brush teeth with setup, resting L elbow on counter top. Min assist to hold cup to rinse mouth. Pt also able to wash face using L hand, after setup. Can't take glasses off himslef. ) Other Treatment After ADLs, he took himself to the gym per w/c. Skilled facilitation techniques used to strengthen muscles in bilat UEs and increase active range. Pt said range in R elbow has been limited for several years. Pt cont with trigger point pain R scapula region which responded to gentle stretches and mobilization but then often came back with active movement. Goal is to increase bilat UE function to be able to assist with ADLs and use hands on mobility devices. Warm blanket left on R shoulder after tx. Care transferred to PT. Education OT Patient Education: Modified ADL techniques, Progress toward Goal/Update tx plan, Purpose of tx/functional activities Teaching Recipient: Patient Teaching Methods: Demonstration, Discussion Response to Teaching: Verbalize Understanding, Return Demonstration, Reinforcement Needed OT Short Term Goals Short Term Goals Time Frame: Nov 17, 2016 Eating(FIM): 4 Grooming(FIM): 3 Upper Body Dressing(FIM): 3 Lower Body Dressing(FIM): 3 Toileting(FIM): 3 Toilet/Commode Transfer(FIM): 3 Shower Transfer(FIM): 3 Additional Short Term Goals: 2-Verbalize Understanding, 3-ImproveStrength/Fady 1=Demonstrate adherence to instructed precautions during ADL tasks. 2=Patient will verbalize/demonstrate understanding of assistive devices/ modifications for ADL. 3=Patient will improve strength/tolerance for activity to enable patient to perform ADL's. OT Group Home Goals Director Group Sales Goals Time Frame: Dec 01, 2016 Eating (FIM): 5 Eating (QC): 5 Groomin Oral Hygiene (QC): 5 Bathing(FIM): 5 Shower/Bathe Self (QC): 5 Upper Body Dressing(FIM): 5 Upper Body Dressing (QC): 5 Lower Body Dressing(FIM): 5 Lower Body Dressing (QC): 5 On/Off Footwear (QC): 4 Toileting(FIM): 5 Toileting Hygiene (QC): 5 Toilet/Commode Transfer(FIM): 5 Toilet/Commode Transfer (QC): 5 Shower Transfer(FIM): 5 Additional Goals: 2-Verbalize Understanding, 3-ImproveStrength/Fady 1=Demonstrate adherence to instructed precautions during ADL tasks. 2=Patient will verbalize/demonstrate understanding of assistive devices/ modifications for ADL. 3=Patient will improve strength/tolerance for activity to enable patient to perform ADL's. OT Education/Plan Problem List/Assessment Pt would benefit from skilled OT to increase his independence in basic self care to allow him to safely return to his home to live alone and to decrease caregiver burden. Discharge Recommendations Plan/Recommendations: Continue POC Treatment Plan/Plan of Care Patient would benefit from OT for education, treatment and training to promote independence in ADL's, mobility, safety and/or upper extremity function for ADL' s. Plan of Care: ADL Retraining, Functional Mobility, Group Exercise/Act as Ind ( education, exercise, activity tolerance, functional activities, socialization), UE Funct Exercise/Act, UE Neuromus Re-Ed/Coord, W/C Management Training Treatment Duration: Dec 01, 2016 Frequency: Twice Daily Estimated Hrs Per Day: 1.5 hours per day Agreement: Yes Rehab Potential: Fair Time/GCodes Start Time: 08:00 Stop Time: 09:00 Total Time Billed (hr/min): 60 Billed Treatment Time visit, ADL 15 min, neuromotor 45 min THAI HOOVER OT Nov 17, 2016 11:19
--- NOTE | 2016-11-17 14:17 | Therapy Group Daily Note ---
Therapy Daily Group Note Other/Notes Patients had group therapy in the common area of rehab this afternoon. Each patient was transported or ambulated to the common area of rehab and sat in a group [place]. Each patient then had to introduce themselves, state where they were from and answer a question that required memory and critical thinking. Patients then participated in games that involve manual dexterity, UE ROM, problem solving, memory, and strategy. Finally, each patient was transported or ambulated back to their room and put in bed or chair with nurse call, phone, tray, all needs met. Start Time: 13:00 Stop Time: 14:00 Total Billed Treatment Time: 60 Total Billed Treatment 1 visit GRP 60' CATALINA RUBI PT Nov 17, 2016 14:17
--- NOTE | 2016-11-17 16:12 | PM & R (SOAP) Progress Note ---
Subjective Time Seen by Provider: 08:00 Subjective/Events-last exam Patient was seen in his room this AM [place] strength gradually improving on left Still needs assistance for feeding and other adls Objective Exam Last Set of Vital Signs Vital Signs Date Time Temp Pulse Resp B/P (MAP) Pulse Ox O2 Delivery O2 Flow Rate FiO2 11/17/16 09:00 Room Air 11/17/16 05:17 97.5 87 16 139/82 97 Capillary Refill : I&O Intake and Output 11/17/16 00:00 Intake Total 900 ml Output Total 900 ml Balance 0 ml Intake Oral 900 ml Output Urine Total 900 ml # Voids 1 General: Alert, Oriented X3, Cooperative, No Acute Distress HEENT: Atraumatic, PERRLA, EOMI, Mucous Memb Moist/[place] Neck: Supple, Other (inciasion healing well C Collar in place) Lungs: Clear to Auscultation Heart: Regular Rate Abdomen: Normal Bowel Sounds Extremities: Other (trace edema rt hand) Skin: Other (rt heel wrapped) Neuro: Other (2-3 strength rt UE Numbness rt hand) Results Lab Laboratory Tests 11/14/16 16:32: Glucometer 114H 11/14/16 21:27: Glucometer 112H 11/15/16 05:11: Glucometer 131H 11/15/16 12:47: Glucometer 272H 11/15/16 16:45: Glucometer 164H 11/15/16 20:51: Glucometer 143H 11/16/16 06:17: Glucometer 130H 11/16/16 11:05: Glucometer 163H 11/16/16 18:17: Glucometer 171H 11/16/16 21:29: Glucometer 151H 11/17/16 05:31: Glucometer 136H 11/17/16 11:04: Glucometer 144H Assessment/Plan Assessment Cervical spine spondylosis with myelopathy s/p decompression DR Atkinson Dysphagia improved diet advanced- to regular consistency discussed with RN AMY on cpap HTN controlled DM with episode of hypoglycemia Dr juarez has adjusted insulin -improved HLP Intolerance to oxy-disturbed sleep Pressure sore rt heel Plan Continue PT/OT/Pain management F/U with Hospitalist and DR Atkinson as per their schedule Trend Accucheks and adjust insulin as needed Pain managemnet Changed meds-improved Wound care reconsult to check rt heel -see orders-done as per above Patient doing better with switch to hydrocodone for pain-less side effects reported. Next Team Conference tomorrow 11/18/16 F/U with discharge options. JOSEY SALINAS MD Nov 17, 2016 16:12
[2016-11-17 17:49] VITALS: BP 144/95
--- NOTE | 2016-11-17 18:36 | Progress Note (SOAP) ---
Subjective Date Seen by Provider: Nov 17, 2016 Time Seen by Provider: 18:30 Subjective/Events-last exam contacted by nursing to evaluate posterior cervical incision site. Patient denies increasing pain. He believes that his hands are slowly improving Review of Systems General: No Chills, No Night Sweats Neurological: Weakness Objective Exam Vital Signs Date Time Temp Pulse Resp B/P (MAP) Pulse Ox O2 Delivery O2 Flow Rate FiO2 11/17/16 17:49 99.8 92 20 144/95 97 Room Air 11/17/16 09:00 Room Air 11/17/16 05:17 97.5 87 16 139/82 97 Room Air 11/16/16 21:00 Room Air I & O 11/17/16 07:00 Intake Total 1000 ml Output Total 2100 ml Balance -1100 ml Capillary Refill : General Appearance: No Apparent Distress Respiratory: No Accessory Muscle Use Gastrointestinal: soft Extremity: Normal Capillary Refill, Other (diffuse weakness in BUE ) Neurologic/Psychiatric: Alert, Oriented x3, No Motor/Sensory Deficits, Normal Mood/Affect Skin: Other (Posterior cervical incision CDI with blossom in place. Mild focal swelling at superior pole of incision. Fluctuance present. Palpation revealed drainage of seroma at superior portion of incision. No purulent drainage. No induration or erythema.) Results Lab Laboratory Tests 11/16/16 21:29: Glucometer 151H 11/17/16 05:31: Glucometer 136H 11/17/16 11:04: Glucometer 144H 11/17/16 17:28: Glucometer 105 Assessment/Plan Assessment/Plan Assess & Plan/Chief Complaint Cervical stenosis with myelopathy Surgical site seroma Continue to express seroma Will preemptively place the patient on a 5 day course of Bactrim at this time. Clinical Quality Measures DVT/VTE Risk/Contraindication: Risk Factor Score Per Nursin RFS Level Per Nursing on Admit: 4+=Very High SEVERO GALDAMEZ Nov 17, 2016 18:36
[2016-11-17] MEDS: IRBESARTAN 150 MG (AVAPRO) TAB PO SCH (20:10)
[2016-11-18] MEDS: HYDROcodone/APAP 10 MG/325 MG (LORTAB) TAB PO PRN ×5 (01:38→21:27)
[2016-11-18 04:43] VITALS: BP 143/77
[2016-11-18] MEDS: MULTIVIT W/MINERALS TAB (THERAGRAN M) PO SCH (05:43)
[2016-11-18] MEDS: metFORMIN 500 MG (GLUCOPHAGE) TAB PO SCH ×2 (05:43→16:13)
[2016-11-18] MEDS: TRIM/SULFAMETH 160/800 (SEPTRA DS) TAB PO SCH ×2 (05:43→16:12)
[2016-11-18] MEDS: inSUlin (REGULAR) HUMAN 1 UNIT/0.01 ML (CHARGE PER UNIT) SC SCH ×3 (06:26→16:14)
[2016-11-18] MEDS: HYDROCHLOROTHIAZIDE 25 MG (HCTZ) TAB PO SCH (08:29)
[2016-11-18] MEDS: amLODIPine 5 MG (NORVASC) TAB PO SCH (08:29)
[2016-11-18] MEDS: SENNA W/DOCUSATE (SENOKOT S) TABLET PO SCH ×2 (08:29→21:27)
[2016-11-18] MEDS: MICONAZOLE 2% POWDER (DESENEX AF) 90 GM TOP SCH ×2 (08:57→21:28)
[2016-11-18] MEDS: A & D OINT 60 GM TUBE TOP SCH (08:57)
[2016-11-18] MEDS: POLYETHYLENE GLYCOL 17 GM (MIRALAX) PACK PO SCH ×2 (08:57→21:27)
[2016-11-18] MEDS: MENTHOL/ZINC OXIDE (CALMOSEPTINE) 113 GM TUBE TOP SCH ×2 (08:57→21:28)
--- NOTE | 2016-11-18 09:00 | Physical Therapy Daily Note ---
PT Daily Note-Current Subjective Patient in bed pre tx, agrees to PT, states he has to use the bedside commode, he also needs dressed. Patient has no complaints of pain. Appearance Patient in power chair post tx, he has OT right after PT. Mental Status Patient Orientation: Normal For Age cervical collar Transfers Functional [place] Measure 0=Not Assessed/NA 4=Minimal Assistance 1=Total Assistance 5=Supervision or Setup 2=Maximal Assistance 6=Modified [place] 3=Moderate Assistance 7=Complete IndependenceIRFPAI Quality Coding Scale 6 Independent with activity with or without an assistive device 5 Patient requires set up or clean up by helper. Patient completes activity by themselves 4 Supervision or touching assist (CGA). [place] provide cues , steadying assist 3 The helper provides less than half the effort to complete the activity 2 The helper provides more than half the effort to complete the activity 1 Dependent. The helper does all the effort to complete an activity 7 Patient refused to complete or attempt activity 9 The patient did not perform the activity before the current illness or injury 88 Not attempted due to Medical conditions or safety concerns Transfers (B, C, W/C) (FIM): 2 Scootin Rollin Supine to/from Sit: 2 Sit to/from Stand: 3 Bed to/from Chair: 3 Gait Training Gait (FIM): 1 Distance: 10'x2 Gait Level of Assist: 4 Gait Persons Needed: 1 Wheelchair follow, used a bilateral platform walker. He is able to advance both legs but with considerable effort. Exercises LAQ alternating for 5 min Treatments bed mobility and transfers, ambulation, functional strengthening, patient was toileted and dressed Assessment Current Status: Fair Progress improving ambulation PT Short Term Goals Short Term Goals Time Frame: Nov 10, 2016 Gait (FIM): 1 Gait Distance Comment: 10' Gait Level of Assist: 2 Gait Assistive Device: FWW, Walker Platform Wheelchair Distance: 150'x2 PT Customer Training Specialist Goals Care Home Goals PT Customer Training Specialist Goals Time Frame: Nov 24, 2016 Transfers (B,C,W/C) (FIM): 4 Sit to Lying (QC): 3 Lying-Sitting on Side/Bed(QC): 3 Sit to Stand (QC): 3 Rollin Roll Left to Right (QC): 3 Chair/Eyv-qx-Odgff Xfer(QC): 3 Gait (FIM): 1 Distance: 20' Walk 10 feet (QC): 2 Gait Level of Assist: 2 Gait Assistive Device: FWW, Walker Platform Wheelchair (FIM): 6 Distance: 500' Wheelchair Level of Assist: 6 Wheel 50 feet with 2 turns (QC: 6 PT Plan Problem List Problem List: Activity Tolerance, Functional Strength, Safety, Balance, Gait, Transfer, Bed Mobility, ROM Treatment/Plan Treatment Plan: Continue Plan of Care Treatment Plan: Bed Mobility, Education, Functional Activity Fady, Functional Strength, Group Therapy, Gait, Safety, Therapeutic Exercise, Transfers Treatment Duration: Nov 24, 2016 Frequency: At least 5-7 days/Wk (IRF) Estimated Hrs Per Day: 2 hours per day Patient and/or Family Agrees t: Yes Safety Risks/Education Patient Education: Gait Training, Transfer Techniques, Correct Positioning, Safety Issues Teaching Recipient: Patient Teaching Methods: Demonstration, Discussion Response to Teaching: Reinforcement Needed Time/GCodes Time In: 800 Time Out: 900 Total Billed Treatment Time: 60 Total Billed Treatment 1 visit FA 30' GT 30' CATALINA RUBI PT Nov 18, 2016 09:00
--- NOTE | 2016-11-18 09:55 | PM & R (SOAP) Progress Note ---
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 Objective Exam Last Set of Vital Signs Vital Signs Date Time Temp Pulse Resp B/P (MAP) Pulse Ox O2 Delivery O2 Flow Rate FiO2 11/18/16 04:43 98.0 87 16 143/77 97 Room Air Capillary Refill : I&O Intake and Output 11/18/16 00:00 Intake Total 1500 ml Output Total 1700 ml Balance -200 ml Intake Oral 1500 ml Output Urine Total 1700 ml # Voids 4 General: Alert, Oriented X3, Cooperative, No Acute Distress HEENT: Atraumatic, PERRLA, EOMI, Mucous Memb Moist/[place] Neck: Supple, Other (inciasion healing well C Collar in place) Lungs: Clear to Auscultation Heart: Regular Rate Abdomen: Normal Bowel Sounds Extremities: Other (trace edema rt hand) Skin: Other (rt heel wrapped) Neuro: Other (2-3 strength rt UE Numbness rt hand) Results Lab Laboratory Tests 11/15/16 12:47: Glucometer 272H 11/15/16 16:45: Glucometer 164H 11/15/16 20:51: Glucometer 143H 11/16/16 06:17: Glucometer 130H 11/16/16 11:05: Glucometer 163H 11/16/16 18:17: Glucometer 171H 11/16/16 21:29: Glucometer 151H 11/17/16 05:31: Glucometer 136H 11/17/16 11:04: Glucometer 144H 11/17/16 17:28: Glucometer 105 11/17/16 20:50: Glucometer 182H 11/18/16 04:31: Glucometer 113H Assessment/Plan Assessment Cervical spine spondylosis with myelopathy s/p decompression DR Atkinson Dysphagia improved diet advanced- to regular consistency discussed with RN AMY on cpap HTN controlled DM with episode of hypoglycemia Dr juarez has adjusted insulin -improved HLP Intolerance to oxy-disturbed sleep Pressure sore rt heel Plan Continue PT/OT/Pain management F/U with Hospitalist and DR Atkinson as per their schedule Trend Accucheks and adjust insulin as needed Pain managemnet Changed meds-improved Wound care reconsult to check rt heel -see orders-done as per above Patient doing better with switch to hydrocodone for pain-less side effects reported. Next Team Conference later today -See report for full functional update and POC and ELOS F/U with SW discharge options. JOSEY SALINAS MD Nov 18, 2016 09:55
[2016-11-18] MEDS: LACTULOSE SYRUP 10GM/15ML (ENULOSE) 30ML UDC PO SCH ×2 (10:19→21:27)
--- NOTE | 2016-11-18 10:26 | Occupational Ther Daily Note ---
OT Current Status-Daily Note Subjective Pt seen in room, up in power chair, agreeable to OT. Pt thought the estim with PT yesterday helped decrease shoulder pain but still continues to have trigger point discomfort and tightness R scapula, non-rated. Appearance Alert, cooperative. Looks fatigued today Mental Status/Objective Functional [place] Measure 0=Not Assessed/NA 4=Minimal Assistance 1=Total Assistance 5=Supervision or Setup 2=Maximal Assistance 6=Modified [place] 3=Moderate Assistance 7=Complete [place] ADL-Treatment Functional [place] Measure 0=Not Assessed/NA 4=Minimal Assistance 1=Total Assistance 5=Supervision or Setup 2=Maximal Assistance 6=Modified [place] 3=Moderate Assistance 7=Complete IndependenceIRFPAI Quality Coding Scale 6 Independent with activity with or without an assistive device 5 Patient requires set up or clean up by helper. Patient completes activity by themselves 4 Supervision or touching assist (CGA). [place] provide cues , steadying assist 3 The helper provides less than half the effort to complete the activity 2 The helper provides more than half the effort to complete the activity 1 Dependent. The helper does all the effort to complete an activity 7 Patient refused to complete or attempt activity 9 The patient did not perform the activity before the current illness or injury 88 Not attempted due to Medical conditions or safety concerns Grooming (FIM): 4 (Pt wanted to shave and brush teeth. Propelled power chair to accessible bathroom and opened door, drove into bathroom. Able to position chair at sink. Using universal cuff, pt was able to shave the left side of his face and to edge of lip on R side. Has difficulty positioning razor at correct angle when shaving R side of face. Used universal cuff. Able to get craig wet himself with washcloth and wash most of face after shaving. Uses dandruff shampoo to shave due to dry skin. Able to brush teeth with setup, including getting a drink to rinse mouth. Can reposition toothbrush to get to all areas of mouth. Rests L elbow on countertop for stability and range. Unable to braid hair) Other Treatment After grooming, pt propelled power chair to gym. Positioned at elevated table with skateboard and skate and was able to move R UE (gravity eliminated as much as possible) forward, side to side, figure of 8, coordinating shoulder and elbow movements to reach for and position objects on board. Supporting R arm helped minimize shoulder pain. Deep pressure with gentle massage on trigger point for a couple minutes - pt said this helped with pain relief. Edema decreased in R hand but Isotoner glove reapplied to continue edema management. Cont difficult to fully move fingers in R hand due to edema. After tx, pt took himself back to his room, per power chair. Education OT Patient Education: Modified ADL techniques, Progress toward Goal/Update tx plan, Use of adapted equipment Teaching Recipient: Patient Teaching Methods: Discussion Response to Teaching: Verbalize Understanding OT Short Term Goals Short Term Goals Time Frame: Nov 17, 2016 Eating(FIM): 4 Grooming(FIM): 3 Upper Body Dressing(FIM): 3 Lower Body Dressing(FIM): 3 Toileting(FIM): 3 Toilet/Commode Transfer(FIM): 3 Shower Transfer(FIM): 3 Additional Short Term Goals: 2-Verbalize Understanding, 3-ImproveStrength/Fady 1=Demonstrate adherence to instructed precautions during ADL tasks. 2=Patient will verbalize/demonstrate understanding of assistive devices/ modifications for ADL. 3=Patient will improve strength/tolerance for activity to enable patient to perform ADL's. OT Nursing Home Goals Nursing Home Goals Time Frame: Dec 01, 2016 Eating (FIM): 5 Eating (QC): 5 Groomin Oral Hygiene (QC): 5 Bathing(FIM): 5 Shower/Bathe Self (QC): 5 Upper Body Dressing(FIM): 5 Upper Body Dressing (QC): 5 Lower Body Dressing(FIM): 5 Lower Body Dressing (QC): 5 On/Off Footwear (QC): 4 Toileting(FIM): 5 Toileting Hygiene (QC): 5 Toilet/Commode Transfer(FIM): 5 Toilet/Commode Transfer (QC): 5 Shower Transfer(FIM): 5 Additional Goals: 2-Verbalize Understanding, 3-ImproveStrength/Fady 1=Demonstrate adherence to instructed precautions during ADL tasks. 2=Patient will verbalize/demonstrate understanding of assistive devices/ modifications for ADL. 3=Patient will improve strength/tolerance for activity to enable patient to perform ADL's. OT Education/Plan Problem List/Assessment Pt would benefit from skilled OT to increase his independence in basic self care to allow him to safely return to his home to live alone and to decrease caregiver burden. Discharge Recommendations Plan/Recommendations: Continue POC Treatment Plan/Plan of Care Patient would benefit from OT for education, treatment and training to promote independence in ADL's, mobility, safety and/or upper extremity function for ADL' s. Plan of Care: ADL Retraining, Functional Mobility, Group Exercise/Act as Ind ( education, exercise, activity tolerance, functional activities, socialization), UE Funct Exercise/Act, UE Neuromus Re-Ed/Coord, W/C Management Training Treatment Duration: Dec 01, 2016 Frequency: Twice Daily Estimated Hrs Per Day: 1.5 hours per day Agreement: Yes Rehab Potential: Fair Time/GCodes Start Time: 09:00 Stop Time: 10:00 Total Time Billed (hr/min): 60 Billed Treatment Time visit, 30 minutes ADL, 30 minutes neuromotor THAI HOOVER OT Nov 18, 2016 10:26
--- NOTE | 2016-11-18 10:45 | Progress Note-Hospitalist ---
Progress Note Progress Notes/Assess & Plan Date Seen 11/18/16 Time Seen by Provider: 10:00 Diagonsis/Assessment & Plan Chart Review: Max fever 99.8 Isolated Blood sugars very good, 138 average vendette: Pt is having BMs Russel Bright came to see pt last night. [place] dressing was started and dressing to DC on 11/21 Trying to get Medicaid pushed though so can DC to [facility] Pt already had a hearing with disability Patient Interview: Pt states that he is unsure of his weight now. Pt states that he used to be about 250 lbs. Pt was informed that he is now around 175 lbs. Blood sugars discussed and doing well Pt confirms BM yesterday Physical exam stable AFVSS, pleasant, O x 3, improved RRR, CTAB improved extremity movement and strength No edema Assessment: Status post cervical spine surgery stage II of 2 stage surgery for spinal cord compression Dysphagia due to edema from neck surgery s/p NPO but now ok with nutrition intake PO Diabetes mellitus Obstructive sleep apnea compliant with treatment Hypertension Hyperlipidemia Status post narcotic bowel requiring soapsuds enema for disimpaction 2 and half weeks ago maintained on regimen Plan: NH at [place] Continue insulin as it is now Scribed by Michelle Garcia under the direct supervision of Dr. Duvall. KEANU DUVALL DO Nov 18, 2016 10:45
--- NOTE | 2016-11-18 12:05 | Occupational Ther Daily Note ---
OT Current Status-Daily Note Subjective Pt seen in room, up in bed, agreeable to OT. Recent pain meds Appearance Drowsy Mental Status/Objective Functional [place] Measure 0=Not Assessed/NA 4=Minimal Assistance 1=Total Assistance 5=Supervision or Setup 2=Maximal Assistance 6=Modified [place] 3=Moderate Assistance 7=Complete [place] ADL-Treatment Functional [place] Measure 0=Not Assessed/NA 4=Minimal Assistance 1=Total Assistance 5=Supervision or Setup 2=Maximal Assistance 6=Modified [place] 3=Moderate Assistance 7=Complete IndependenceIRFPAI Quality Coding Scale 6 Independent with activity with or without an assistive device 5 Patient requires set up or clean up by helper. Patient completes activity by themselves 4 Supervision or touching assist (CGA). [place] provide cues , steadying assist 3 The helper provides less than half the effort to complete the activity 2 The helper provides more than half the effort to complete the activity 1 Dependent. The helper does all the effort to complete an activity 7 Patient refused to complete or attempt activity 9 The patient did not perform the activity before the current illness or injury 88 Not attempted due to Medical conditions or safety concerns Other Treatment Skilled facilitation techniques including retrograde massage, gentle traction, passive ROM with gentle stretch to increase functional use of R hand. By end of tx, pt's knuckles on dorsum of hand were visible and pt was able to flex fingers to within about 1" of palm (about 1.25" for index), an increase in range of motion. Isotoner glove reapplied, hand elevated on pillow, all needs met. Education OT Patient Education: Progress toward Goal/Update tx plan, Purpose of tx/ functional activities Teaching Recipient: Patient Teaching Methods: Demonstration, Discussion Response to Teaching: Verbalize Understanding, Return Demonstration OT Short Term Goals Short Term Goals Time Frame: Nov 17, 2016 Eating(FIM): 4 Grooming(FIM): 3 Upper Body Dressing(FIM): 3 Lower Body Dressing(FIM): 3 Toileting(FIM): 3 Toilet/Commode Transfer(FIM): 3 Shower Transfer(FIM): 3 Additional Short Term Goals: 2-Verbalize Understanding, 3-ImproveStrength/Fady 1=Demonstrate adherence to instructed precautions during ADL tasks. 2=Patient will verbalize/demonstrate understanding of assistive devices/ modifications for ADL. 3=Patient will improve strength/tolerance for activity to enable patient to perform ADL's. OT Commercial Helicopter Pilot Goals Snf Goals Time Frame: Dec 01, 2016 Eating (FIM): 5 Eating (QC): 5 Groomin Oral Hygiene (QC): 5 Bathing(FIM): 5 Shower/Bathe Self (QC): 5 Upper Body Dressing(FIM): 5 Upper Body Dressing (QC): 5 Lower Body Dressing(FIM): 5 Lower Body Dressing (QC): 5 On/Off Footwear (QC): 4 Toileting(FIM): 5 Toileting Hygiene (QC): 5 Toilet/Commode Transfer(FIM): 5 Toilet/Commode Transfer (QC): 5 Shower Transfer(FIM): 5 Additional Goals: 2-Verbalize Understanding, 3-ImproveStrength/Fady 1=Demonstrate adherence to instructed precautions during ADL tasks. 2=Patient will verbalize/demonstrate understanding of assistive devices/ modifications for ADL. 3=Patient will improve strength/tolerance for activity to enable patient to perform ADL's. OT Education/Plan Problem List/Assessment Pt would benefit from skilled OT to increase his independence in basic self care to allow him to safely return to his home to live alone and to decrease caregiver burden. Discharge Recommendations Plan/Recommendations: Continue POC Treatment Plan/Plan of Care Patient would benefit from OT for education, treatment and training to promote independence in ADL's, mobility, safety and/or upper extremity function for ADL' s. Plan of Care: ADL Retraining, Functional Mobility, Group Exercise/Act as Ind ( education, exercise, activity tolerance, functional activities, socialization), UE Funct Exercise/Act, UE Neuromus Re-Ed/Coord, W/C Management Training Treatment Duration: Dec 01, 2016 Frequency: Twice Daily Estimated Hrs Per Day: 1.5 hours per day Agreement: Yes Rehab Potential: Fair Time/GCodes Start Time: 11:30 Stop Time: 12:00 Total Time Billed (hr/min): 30 Billed Treatment Time visit, 30 minutes neuromotor THAI HOOVER OT Nov 18, 2016 12:05
--- NOTE | 2016-11-18 14:39 | Physical Therapy Daily Note ---
PT Daily Note-Current Subjective Pt. c/o his pain is 8/10 all over, mainly right arm. Pt. requests right arm be stretched a little along with other LE exercises Pain Numeric Pain Scale: 8 Location: Right Location Body Site: Arm Pain Description: Ache Mental Status Patient Orientation: Normal For Age Transfers Functional [place] Measure 0=Not Assessed/NA 4=Minimal Assistance 1=Total Assistance 5=Supervision or Setup 2=Maximal Assistance 6=Modified [place] 3=Moderate Assistance 7=Complete IndependenceIRFPAI Quality Coding Scale 6 Independent with activity with or without an assistive device 5 Patient requires set up or clean up by helper. Patient completes activity by themselves 4 Supervision or touching assist (CGA). [place] provide cues , steadying assist 3 The helper provides less than half the effort to complete the activity 2 The helper provides more than half the effort to complete the activity 1 Dependent. The helper does all the effort to complete an activity 7 Patient refused to complete or attempt activity 9 The patient did not perform the activity before the current illness or injury 88 Not attempted due to Medical conditions or safety concerns Exercises Supine Ex: Ankle pumps, Quad Set, Glut sets, Lower trunk rotation, Heel Slides , Short Arc Quads, Scooting (up in bed mod assist), Straight leg raise (assist required), Hip abd/add Supine Reps: 15 right arm elbow flexion, shoulder abd and flexion to tolerance, sup and pronation all x12 Assessment limited tolerance for Rx secondary to pain c/o PT Short Term Goals Short Term Goals Time Frame: Nov 10, 2016 Gait (FIM): 1 Gait Distance Comment: 10' Gait Level of Assist: 2 Gait Assistive Device: FWW, Walker Platform Wheelchair Distance: 150'x2 PT Senior Living Goals Security Threat Analyst Goals PT Security Threat Analyst Goals Time Frame: Nov 24, 2016 Transfers (B,C,W/C) (FIM): 4 Sit to Lying (QC): 3 Lying-Sitting on Side/Bed(QC): 3 Sit to Stand (QC): 3 Rollin Roll Left to Right (QC): 3 Chair/Rgx-ag-Oqgna Xfer(QC): 3 Gait (FIM): 1 Distance: 20' Walk 10 feet (QC): 2 Gait Level of Assist: 2 Gait Assistive Device: FWW, Walker Platform Wheelchair (FIM): 6 Distance: 500' Wheelchair Level of Assist: 6 Wheel 50 feet with 2 turns (QC: 6 PT Plan Treatment/Plan Treatment Plan: Continue Plan of Care Treatment Plan: Bed Mobility, Education, Functional Activity Fady, Functional Strength, Group Therapy, Gait, Safety, Therapeutic Exercise, Transfers Treatment Duration: Nov 24, 2016 Frequency: At least 5-7 days/Wk (IRF) Estimated Hrs Per Day: 2 hours per day Patient and/or Family Agrees t: Yes Safety Risks/Education Patient Education: Gait Training, Correct Positioning, Disease Process, Safety Issues Teaching Recipient: Patient Teaching Methods: Demonstration, Discussion Response to Teaching: Verbalize Understanding Time/GCodes Time In: 1400 Time Out: 1430 Total Billed Treatment Time: 30 Total Billed Treatment 1,EX30m G Codes Necessary: No JONATHON HUGHES SUPERVISOR ABAT[employer]IR Nov 18, 2016 14:39
[2016-11-18 16:45] VITALS: BP 137/71
[2016-11-18] MEDS: DIAZEPAM 5 MG (VALIUM) TABLET PO PRN ×2 (16:53)
[2016-11-18] MEDS: IRBESARTAN 150 MG (AVAPRO) TAB PO SCH (21:27)
[2016-11-19] MEDS: HYDROcodone/APAP 10 MG/325 MG (LORTAB) TAB PO PRN ×5 (01:48→20:45)
[2016-11-19 05:52] VITALS: BP 132/87
[2016-11-19] MEDS: metFORMIN 500 MG (GLUCOPHAGE) TAB PO SCH ×2 (06:13→15:44)
[2016-11-19] MEDS: TRIM/SULFAMETH 160/800 (SEPTRA DS) TAB PO SCH ×2 (06:13→15:44)
[2016-11-19] MEDS: MULTIVIT W/MINERALS TAB (THERAGRAN M) PO SCH (06:13)
[2016-11-19] MEDS: LACTULOSE SYRUP 10GM/15ML (ENULOSE) 30ML UDC PO SCH ×2 (07:47→20:46)
[2016-11-19] MEDS: SENNA W/DOCUSATE (SENOKOT S) TABLET PO SCH ×2 (07:47→20:46)
[2016-11-19] MEDS: HYDROCHLOROTHIAZIDE 25 MG (HCTZ) TAB PO SCH (07:47)
[2016-11-19] MEDS: amLODIPine 5 MG (NORVASC) TAB PO SCH (07:47)
[2016-11-19] MEDS: inSUlin (REGULAR) HUMAN 1 UNIT/0.01 ML (CHARGE PER UNIT) SC SCH ×4 (07:47→15:47)
--- NOTE | 2016-11-19 08:19 | PM & R (SOAP) Progress Note ---
Subjective Time Seen by Provider: 08:00 Subjective/Events-last exam Patient was seen in his room this AM. Patient improving slowly Patient min assist for gait with platform walker Still needs assistance with feeds due to limited abrasive grinder strength bilaterally Review of Systems Neurological: Weakness Objective Exam Last Set of Vital Signs Vital Signs Date Time Temp Pulse Resp B/P (MAP) Pulse Ox O2 Delivery O2 Flow Rate FiO2 11/19/16 05:52 98.6 91 18 132/87 95 Room Air Capillary Refill : I&O Intake and Output 11/19/16 00:00 Intake Total 2250 ml Output Total 1400 ml Balance 850 ml Intake Oral 2250 ml Output Urine Total 1400 ml # Voids 6 # Bowel Movements 1 General: Alert, Oriented X3, Cooperative, No Acute Distress HEENT: Atraumatic, PERRLA, EOMI, Mucous Memb Moist/[place] Neck: Supple, Other (inciasion healing well C Collar in place) Lungs: Clear to Auscultation Heart: Regular Rate Abdomen: Normal Bowel Sounds Extremities: Other (trace edema rt hand) Skin: Other (rt heel wrapped) Neuro: Other (2-3 strength rt UE Numbness rt hand) Results Lab Laboratory Tests 11/16/16 11:05: Glucometer 163H 11/16/16 18:17: Glucometer 171H 11/16/16 21:29: Glucometer 151H 11/17/16 05:31: Glucometer 136H 11/17/16 11:04: Glucometer 144H 11/17/16 17:28: Glucometer 105 11/17/16 20:50: Glucometer 182H 11/18/16 04:31: Glucometer 113H 11/18/16 11:01: Glucometer 139H 11/18/16 17:17: Glucometer 197H 11/18/16 21:49: Glucometer 124H 11/19/16 06:03: Glucometer 127H Assessment/Plan Assessment Cervical spine spondylosis with myelopathy s/p decompression DR Atkinson affecting U Limbs more then Lower Dysphagia improved diet advanced- to regular consistency discussed with RN AMY on cpap HTN controlled DM with episode of hypoglycemia Dr juarez has adjusted insulin -improved HLP Intolerance to oxy-disturbed sleep Pressure sore rt heel-improving Plan Continue PT/OT/Pain management F/U with Hospitalist and DR Atkinson as per their schedule Trend Accucheks and adjust insulin as needed Pain managemnet Changed meds-improved Wound care reconsult to check rt heel -see orders-done as per above Patient doing better with switch to hydrocodone for pain-less side effects reported. Team Conference hedl yesterday -See report for full functional update and POC and ELOS Discussed discharge options.with JOSEY KANG MD Nov 19, 2016 08:18
[2016-11-19] MEDS: MICONAZOLE 2% POWDER (DESENEX AF) 90 GM TOP SCH ×2 (09:30→20:47)
[2016-11-19] MEDS: MENTHOL/ZINC OXIDE (CALMOSEPTINE) 113 GM TUBE TOP SCH ×2 (09:30→20:47)
[2016-11-19] MEDS: A & D OINT 60 GM TUBE TOP SCH (09:30)
[2016-11-19] MEDS: POLYETHYLENE GLYCOL 17 GM (MIRALAX) PACK PO SCH ×2 (09:58→20:46)
--- NOTE | 2016-11-19 09:59 | Physical Therapy Daily Note ---
PT Daily Note-Current Subjective Patient in power chair pre tx, needs some hair grooming and cervical collar on. He has pain of 7/10 in right shoulder and left hip today. He states he would like to have estim on shoulder later during tx. Appearance Patient in power chair post tx, he is mod I with wheelchair mobility. Mental Status Patient Orientation: Normal For Age cervical collar Transfers Functional [place] Measure 0=Not Assessed/NA 4=Minimal Assistance 1=Total Assistance 5=Supervision or Setup 2=Maximal Assistance 6=Modified [place] 3=Moderate Assistance 7=Complete IndependenceIRFPAI Quality Coding Scale 6 Independent with activity with or without an assistive device 5 Patient requires set up or clean up by helper. Patient completes activity by themselves 4 Supervision or touching assist (CGA). [place] provide cues , steadying assist 3 The helper provides less than half the effort to complete the activity 2 The helper provides more than half the effort to complete the activity 1 Dependent. The helper does all the effort to complete an activity 7 Patient refused to complete or attempt activity 9 The patient did not perform the activity before the current illness or injury 88 Not attempted due to Medical conditions or safety concerns Transfers (B, C, W/C) (FIM): 3 Scootin Rollin Supine to/from Sit: 2 Sit to/from Stand: 3 Bed to/from Chair: 3 Patient stood with less assist (but still mod assist) but was pretty unsteady with the transfer, he cannot assist with his arms Gait Training Gait (FIM): 2 Distance: 50'x2 Gait Level of Assist: 3 Gait Persons Needed: 1 Wheelchair follow, patient ambulated 50'x2 with a bilateral platform walker, needs assist with balance, he is able to advance his feet on his own but it takes considerable effort, very uncoordinated. Treatments hair grooming, bed mobility and transfers, ambulation, interferential estim and MHP to right shoulder for 15 min Assessment Current Status: Fair Progress improved ambulation PT Short Term Goals Short Term Goals Time Frame: Nov 10, 2016 Gait (FIM): 1 Gait Distance Comment: 10' Gait Level of Assist: 2 Gait Assistive Device: FWW, Walker Platform Wheelchair Distance: 150'x2 PT Snf Goals Tail Trimmer Goals PT Tail Trimmer Goals Time Frame: Nov 24, 2016 Transfers (B,C,W/C) (FIM): 4 Sit to Lying (QC): 3 Lying-Sitting on Side/Bed(QC): 3 Sit to Stand (QC): 3 Rollin Roll Left to Right (QC): 3 Chair/Jto-gl-Vhqlf Xfer(QC): 3 Gait (FIM): 1 Distance: 20' Walk 10 feet (QC): 2 Gait Level of Assist: 2 Gait Assistive Device: FWW, Walker Platform Wheelchair (FIM): 6 Distance: 500' Wheelchair Level of Assist: 6 Wheel 50 feet with 2 turns (QC: 6 PT Plan Problem List Problem List: Activity Tolerance, Functional Strength, Safety, Balance, Gait, Transfer, Bed Mobility, ROM Treatment/Plan Treatment Plan: Continue Plan of Care Treatment Plan: Bed Mobility, Education, Functional Activity Fady, Functional Strength, Group Therapy, Gait, Safety, Therapeutic Exercise, Transfers Treatment Duration: Nov 24, 2016 Frequency: At least 5-7 days/Wk (IRF) Estimated Hrs Per Day: 2 hours per day Patient and/or Family Agrees t: Yes Safety Risks/Education Patient Education: Gait Training, Transfer Techniques, Correct Positioning, Safety Issues Teaching Recipient: Patient Teaching Methods: Demonstration, Discussion Response to Teaching: Reinforcement Needed Time/GCodes Time In: 900 Time Out: 1000 Total Billed Treatment Time: 60 Total Billed Treatment 1 visit ES 15' FA 15' GT 30' CATALINA RUBI PT Nov 19, 2016 09:59
--- NOTE | 2016-11-19 11:25 | Occupational Ther Daily Note ---
OT Current Status-Daily Note Subjective Pt seen in room, up in bed, agreeable to OT. No specific pain mentioned. Appearance Alert, cooperative Mental Status/Objective Functional [place] Measure 0=Not Assessed/NA 4=Minimal Assistance 1=Total Assistance 5=Supervision or Setup 2=Maximal Assistance 6=Modified [place] 3=Moderate Assistance 7=Complete [place] ADL-Treatment Pt pleased with progress with ADLs Functional [place] Measure 0=Not Assessed/NA 4=Minimal Assistance 1=Total Assistance 5=Supervision or Setup 2=Maximal Assistance 6=Modified [place] 3=Moderate Assistance 7=Complete IndependenceIRFPAI Quality Coding Scale 6 Independent with activity with or without an assistive device 5 Patient requires set up or clean up by helper. Patient completes activity by themselves 4 Supervision or touching assist (CGA). [place] provide cues , steadying assist 3 The helper provides less than half the effort to complete the activity 2 The helper provides more than half the effort to complete the activity 1 Dependent. The helper does all the effort to complete an activity 7 Patient refused to complete or attempt activity 9 The patient did not perform the activity before the current illness or injury 88 Not attempted due to Medical conditions or safety concerns Bathing (FIM): 3 (In shower chair, pt was able to wash both arms (but not under arms), chest, abdomen, thighs and lower legs to calf level. Wiped same areas. Better job holding on to washcloth with L hand. OT washed hair with dandruff shampoo. Hand held shower, grab bars, wheeled shower chair) Bathing Location: L Arm, R Arm, L Upper Leg, R Upper Leg, Chest, Abdomen Upper Body (FIM): 2 (Able to thread R hand into shirt sleeve, helped place L hand but unable to pull shirt up over arm with R hand. Help getting shirt over head and pulling shirt down.) Lower Body Dressing (FIM): 2 (Able to lift both feet to put them into pants legs and help pull them up a little with L hand. Used sit to stand lift to stand to pull pants up. Dependant for socks and shoes) Toileting (FIM): 1 (Unable to manage hygiene or clothing. BSC/shower chair. Sit to stand lift) Transfers (B, C, W/C) (FIM): 3 (Mod assist supine to sit EOB. Pt helps move legs but has trouble pushing trunk up with arms) Shower Transfer(FIM): 1 (Sit to stand lift transfer to wheeled shower chair. pt unable to take shower chair to bathroom) Pt left up in power chair, care transferred to PT. Education OT Patient Education: Modified ADL techniques, Progress toward Goal/Update tx plan, Purpose of tx/functional activities Teaching Recipient: Patient Teaching Methods: Discussion Response to Teaching: Verbalize Understanding OT Short Term Goals Short Term Goals Time Frame: Nov 17, 2016 Eating(FIM): 4 Grooming(FIM): 3 Upper Body Dressing(FIM): 3 Lower Body Dressing(FIM): 3 Toileting(FIM): 3 Toilet/Commode Transfer(FIM): 3 Shower Transfer(FIM): 3 Additional Short Term Goals: 2-Verbalize Understanding, 3-ImproveStrength/Fayd 1=Demonstrate adherence to instructed precautions during ADL tasks. 2=Patient will verbalize/demonstrate understanding of assistive devices/ modifications for ADL. 3=Patient will improve strength/tolerance for activity to enable patient to perform ADL's. OT [facility] Goals Certified Indoor Environmentalist Goals Time Frame: Dec 01, 2016 Eating (FIM): 5 Eating (QC): 5 Groomin Oral Hygiene (QC): 5 Bathing(FIM): 5 Shower/Bathe Self (QC): 5 Upper Body Dressing(FIM): 5 Upper Body Dressing (QC): 5 Lower Body Dressing(FIM): 5 Lower Body Dressing (QC): 5 On/Off Footwear (QC): 4 Toileting(FIM): 5 Toileting Hygiene (QC): 5 Toilet/Commode Transfer(FIM): 5 Toilet/Commode Transfer (QC): 5 Shower Transfer(FIM): 5 Additional Goals: 2-Verbalize Understanding, 3-ImproveStrength/Fady 1=Demonstrate adherence to instructed precautions during ADL tasks. 2=Patient will verbalize/demonstrate understanding of assistive devices/ modifications for ADL. 3=Patient will improve strength/tolerance for activity to enable patient to perform ADL's. OT Education/Plan Problem List/Assessment Pt would benefit from skilled OT to increase his independence in basic self care to allow him to safely return to his home to live alone and to decrease caregiver burden. Discharge Recommendations Plan/Recommendations: Continue POC Treatment Plan/Plan of Care Patient would benefit from OT for education, treatment and training to promote independence in ADL's, mobility, safety and/or upper extremity function for ADL' s. Plan of Care: ADL Retraining, Functional Mobility, Group Exercise/Act as Ind ( education, exercise, activity tolerance, functional activities, socialization), UE Funct Exercise/Act, UE Neuromus Re-Ed/Coord, W/C Management Training Treatment Duration: Dec 01, 2016 Frequency: Twice Daily Estimated Hrs Per Day: 1.5 hours per day Agreement: Yes Rehab Potential: Fair Time/GCodes Start Time: 08:00 Stop Time: 09:00 Total Time Billed (hr/min): 60 Billed Treatment Time visit, 60 minutes ADL THAI HOOVER OT Nov 19, 2016 11:25
--- NOTE | 2016-11-19 14:45 | Therapy Group Daily Note ---
Therapy Daily Group Note Patient Education Topic Exercises, Other List Below (Memory Strategies) Exercises LE Seated Exercise, UE Exercise Other/Notes Pt propelled WCH (motorized) to PT/OT Group in Therapy Gym. Group consisted of Introductions (Name, Where you grew up & Favorite Childhood Game/Boardgame), Memorization Techniques and Strategies, Seated UE & LE Exercises and Memory Activity. Pt actively participated in Group by verbally giving answers when asked questions as well as participating in UE & LE Exercises. Pt wheeled back to room using motorized WCH at the end of Group to rest with all needs met at the end of Group. Start Time: 13:00 Stop Time: 14:15 Total Billed Treatment Time: 75 Total Billed Treatment 1, GRP GILA CRYSTAL WRAPPER AND PRESERVER Nov 19, 2016 14:45
[2016-11-19] MEDS: DIAZEPAM 5 MG (VALIUM) TABLET PO PRN (17:29)
[2016-11-19 18:38] VITALS: BP 122/79
[2016-11-19] MEDS: IRBESARTAN 150 MG (AVAPRO) TAB PO SCH (20:46)
[2016-11-20] MEDS: HYDROcodone/APAP 10 MG/325 MG (LORTAB) TAB PO PRN ×6 (01:43→23:57)
[2016-11-20 05:48] VITALS: BP 133/88
[2016-11-20] MEDS: metFORMIN 500 MG (GLUCOPHAGE) TAB PO SCH ×2 (06:21→16:38)
[2016-11-20] MEDS: inSUlin (REGULAR) HUMAN 1 UNIT/0.01 ML (CHARGE PER UNIT) SC SCH ×3 (06:21→17:38)
[2016-11-20] MEDS: TRIM/SULFAMETH 160/800 (SEPTRA DS) TAB PO SCH ×2 (06:21→16:34)
[2016-11-20] MEDS: MULTIVIT W/MINERALS TAB (THERAGRAN M) PO SCH (06:21)
[2016-11-20] MEDS: DIAZEPAM 5 MG (VALIUM) TABLET PO PRN ×2 (07:38→22:50)
[2016-11-20] MEDS: HYDROCHLOROTHIAZIDE 25 MG (HCTZ) TAB PO SCH (08:34)
[2016-11-20] MEDS: SENNA W/DOCUSATE (SENOKOT S) TABLET PO SCH ×2 (08:34→20:20)
[2016-11-20] MEDS: POLYETHYLENE GLYCOL 17 GM (MIRALAX) PACK PO SCH ×2 (08:34→20:21)
[2016-11-20] MEDS: amLODIPine 5 MG (NORVASC) TAB PO SCH (08:34)
[2016-11-20] MEDS: LACTULOSE SYRUP 10GM/15ML (ENULOSE) 30ML UDC PO SCH ×2 (08:34→20:21)
[2016-11-20] MEDS: MICONAZOLE 2% POWDER (DESENEX AF) 90 GM TOP SCH ×2 (08:38→20:24)
[2016-11-20] MEDS: MENTHOL/ZINC OXIDE (CALMOSEPTINE) 113 GM TUBE TOP SCH ×2 (08:38→20:22)
[2016-11-20] MEDS: A & D OINT 60 GM TUBE TOP SCH (08:39)
--- NOTE | 2016-11-20 08:52 | PM & R (SOAP) Progress Note ---
Subjective Time Seen by Provider: 08:00 Subjective/Events-last exam Patient was seen in his room this AM and now in common area Discussed case with OT Patient now bearing wt and c/o increased pain left knee and hip with WT BEaring Asks about injection with ortho Will so consult Cant find a Xray of left hip but left knee reveals DJD,Patient navigating /operating Power chair indpendently on unit Review of Systems Musculoskeletal: leg pain Neurological: Weakness Objective Exam Last Set of Vital Signs Vital Signs Date Time Temp Pulse Resp B/P (MAP) Pulse Ox O2 Delivery O2 Flow Rate FiO2 11/20/16 05:48 98.0 87 16 133/88 96 Room Air Capillary Refill : I&O Intake and Output 11/20/16 00:00 Intake Total 1300 ml Output Total 2050 ml Balance -750 ml Intake Oral 1300 ml Output Urine Total 2050 ml # Bowel Movements 2 General: Alert, Oriented X3, Cooperative, No Acute Distress HEENT: Atraumatic, PERRLA, EOMI, Mucous Memb Moist/[place] Neck: Supple, Other (inciasion healing well C Collar in place) Lungs: Clear to Auscultation Heart: Regular Rate Abdomen: Normal Bowel Sounds Extremities: Other (trace edema rt hand) Skin: Other (rt heel wrapped) Neuro: Other (2-3 strength rt UE Numbness rt hand) Results Lab Laboratory Tests 11/17/16 11:04: Glucometer 144H 11/17/16 17:28: Glucometer 105 11/17/16 20:50: Glucometer 182H 11/18/16 04:31: Glucometer 113H 11/18/16 11:01: Glucometer 139H 11/18/16 17:17: Glucometer 197H 11/18/16 21:49: Glucometer 124H 11/19/16 06:03: Glucometer 127H 11/19/16 12:02: Glucometer 128H 11/19/16 15:55: Glucometer 120H 11/19/16 20:13: Glucometer 129H 11/20/16 05:43: Glucometer 118H Assessment/Plan Assessment Cervical spine spondylosis with myelopathy s/p decompression DR Atkinson affecting U Limbs more then Lower with strength gradually improving but 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 affecting 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 Team Conference held 11-18-16 -See report for full functional update and POC and ELOS Discussed discharge options.with SW. Check Xray left hip Consult ortho re possible injection for pain control See orders. JOSEY SALINAS MD Nov 20, 2016 08:52
--- NOTE | 2016-11-20 09:56 | Physical Therapy Daily Note ---
PT Daily Note-Current Subjective Patient in power chair pre tx in the therapy gym, just had OT, has pain of 5/10 in right shoulder and left hip. Appearance Patient in power chair at bedside post tx, has nurse call, ronel, all needs met. Mental Status Patient Orientation: Normal For Age cervical collar Transfers Functional [place] Measure 0=Not Assessed/NA 4=Minimal Assistance 1=Total Assistance 5=Supervision or Setup 2=Maximal Assistance 6=Modified [place] 3=Moderate Assistance 7=Complete IndependenceIRFPAI Quality Coding Scale 6 Independent with activity with or without an assistive device 5 Patient requires set up or clean up by helper. Patient completes activity by themselves 4 Supervision or touching assist (CGA). [place] provide cues , steadying assist 3 The helper provides less than half the effort to complete the activity 2 The helper provides more than half the effort to complete the activity 1 Dependent. The helper does all the effort to complete an activity 7 Patient refused to complete or attempt activity 9 The patient did not perform the activity before the current illness or injury 88 Not attempted due to Medical conditions or safety concerns Transfers (B, C, W/C) (FIM): 3 Sit to/from Stand: 3 Bed to/from Chair: 3 Gait Training Does the Patient Walk?: Yes Gait (FIM): 4 Distance: 50'x2 Gait Level of Assist: 4 Gait Persons Needed: 1 Used bilateral platform walker, min assist for balance and to help direct walker. Patient was much more tired today, needed extra rest breaks, more assist to stand and help with walker. Exercises NuStep Minutes: 15 NuStep Workload: 4 (functional strengthening to improve ambulation and transfers) Treatments transfers, ambulation, functional strengthening Assessment Current Status: Fair Progress Patient more tired today, needed more rest time, slower, more assist with sit to stand and transfers. PT Short Term Goals Short Term Goals Time Frame: Nov 10, 2016 Gait (FIM): 1 Gait Distance Comment: 10' Gait Level of Assist: 2 Gait Assistive Device: FWW, Walker Platform Wheelchair Distance: 150'x2 PT Residential Goals Residential Goals PT Residential Goals Time Frame: Nov 24, 2016 Transfers (B,C,W/C) (FIM): 4 Sit to Lying (QC): 3 Lying-Sitting on Side/Bed(QC): 3 Sit to Stand (QC): 3 Rollin Roll Left to Right (QC): 3 Chair/Gvm-wd-Kdeas Xfer(QC): 3 Gait (FIM): 1 Distance: 20' Walk 10 feet (QC): 2 Gait Level of Assist: 2 Gait Assistive Device: FWW, Walker Platform Wheelchair (FIM): 6 Distance: 500' Wheelchair Level of Assist: 6 Wheel 50 feet with 2 turns (QC: 6 PT Plan Problem List Problem List: Activity Tolerance, Functional Strength, Safety, Balance, Gait, Transfer, Bed Mobility, ROM Treatment/Plan Treatment Plan: Continue Plan of Care Treatment Plan: Bed Mobility, Education, Functional Activity Fady, Functional Strength, Group Therapy, Gait, Safety, Therapeutic Exercise, Transfers Treatment Duration: Nov 24, 2016 Frequency: At least 5-7 days/Wk (IRF) Estimated Hrs Per Day: 2 hours per day Patient and/or Family Agrees t: Yes Safety Risks/Education Patient Education: Gait Training, Transfer Techniques, Correct Positioning, Safety Issues Teaching Recipient: Patient Teaching Methods: Demonstration, Discussion Response to Teaching: Reinforcement Needed Time/GCodes Time In: 900 Time Out: 1000 Total Billed Treatment Time: 60 Total Billed Treatment 1 visit EX 15' FA 15' GT 30' CATALINA RUBI PT Nov 20, 2016 09:56
--- NOTE | 2016-11-20 10:32 | Occupational Ther Daily Note ---
OT Current Status-Daily Note Subjective Pt seen in room, up in bed, agreeable to OT. Reported pain L hip when standing - discussed with Dr. Ricks. Appearance Alert, cooperative Mental Status/Objective Functional [place] Measure 0=Not Assessed/NA 4=Minimal Assistance 1=Total Assistance 5=Supervision or Setup 2=Maximal Assistance 6=Modified [place] 3=Moderate Assistance 7=Complete [place] ADL-Treatment Pt reported that he has been feeding himself some foods. He can hold and eat a banana and also hold garcias. He uses an adapted spoon and is able to scoop up oatmeal but is not as successful with scrambled eggs. He was agreeable to ADLs. With head of bed elevated, he was able to swing legs over edge of bed and push up to sitting with L UE. He also scooted to the edge of the bed by himself. He lifted his feet to put them into his shorts and pulled pants up to hips with R hand. He stood up with min-mod assist from elevated bed and, after help placing his R arm on platform on walker, was able to stand so that his pants could be pulled up over his hips, NOT using sit to stand lift. He needed help to take R hand off walker and sat EOB without LOB to prepare to transfer to power chair, using sit to stand lift. OT talked with PT about transferring from bed to chair by using platform walker and problem is difficulty with the turning. Also with L hip and knee pain (he is pending a total hip on the L). He propelled his power chair to the bathroom and positioned chair at accessible sink to brush teeth. With setup, he was able to wash his face and brush teeth. including getting toothbrush wet and rinsing it and rinsing his mouth, propping L elbow on countertop and using universal cuff. "I think that's the cleanest my teeth have been!" Functional [place] Measure 0=Not Assessed/NA 4=Minimal Assistance 1=Total Assistance 5=Supervision or Setup 2=Maximal Assistance 6=Modified [place] 3=Moderate Assistance 7=Complete IndependenceIRFPAI Quality Coding Scale 6 Independent with activity with or without an assistive device 5 Patient requires set up or clean up by helper. Patient completes activity by themselves 4 Supervision or touching assist (CGA). [place] provide cues , steadying assist 3 The helper provides less than half the effort to complete the activity 2 The helper provides more than half the effort to complete the activity 1 Dependent. The helper does all the effort to complete an activity 7 Patient refused to complete or attempt activity 9 The patient did not perform the activity before the current illness or injury 88 Not attempted due to Medical conditions or safety concerns Grooming (FIM): 3 (Cannot brush hair, shave fully, but can wash face and hands , brush teeth with setup. 60-70%) Lower Body Dressing (FIM): 3 Other Treatment He took himself to the gym and did AAROM to R UE with OT, with skilled facilitation techniques. He is able to more comfortably reach forward with R shoulder, now to about 80 degrees, with support. Cont with decreased ROM in R fingers but edema is decreased. Care transferred to PT. Education OT Patient Education: Modified ADL techniques, Progress toward Goal/Update tx plan, Use of adapted equipment Teaching Recipient: Patient Teaching Methods: Demonstration, Discussion Response to Teaching: Verbalize Understanding, Return Demonstration OT Short Term Goals Short Term Goals Time Frame: Nov 17, 2016 Eating(FIM): 4 Grooming(FIM): 3 Upper Body Dressing(FIM): 3 Lower Body Dressing(FIM): 3 Toileting(FIM): 3 Toilet/Commode Transfer(FIM): 3 Shower Transfer(FIM): 3 Additional Short Term Goals: 2-Verbalize Understanding, 3-ImproveStrength/Fady 1=Demonstrate adherence to instructed precautions during ADL tasks. 2=Patient will verbalize/demonstrate understanding of assistive devices/ modifications for ADL. 3=Patient will improve strength/tolerance for activity to enable patient to perform ADL's. OT Male Impersonator Goals Alf Goals Time Frame: Dec 01, 2016 Eating (FIM): 5 Eating (QC): 5 Groomin Oral Hygiene (QC): 5 Bathing(FIM): 5 Shower/Bathe Self (QC): 5 Upper Body Dressing(FIM): 5 Upper Body Dressing (QC): 5 Lower Body Dressing(FIM): 5 Lower Body Dressing (QC): 5 On/Off Footwear (QC): 4 Toileting(FIM): 5 Toileting Hygiene (QC): 5 Toilet/Commode Transfer(FIM): 5 Toilet/Commode Transfer (QC): 5 Shower Transfer(FIM): 5 Additional Goals: 2-Verbalize Understanding, 3-ImproveStrength/Fady 1=Demonstrate adherence to instructed precautions during ADL tasks. 2=Patient will verbalize/demonstrate understanding of assistive devices/ modifications for ADL. 3=Patient will improve strength/tolerance for activity to enable patient to perform ADL's. OT Education/Plan Problem List/Assessment Pt would benefit from skilled OT to increase his independence in basic self care to allow him to safely return to his home to live alone and to decrease caregiver burden. Discharge Recommendations Plan/Recommendations: Continue POC Treatment Plan/Plan of Care Patient would benefit from OT for education, treatment and training to promote independence in ADL's, mobility, safety and/or upper extremity function for ADL' s. Plan of Care: ADL Retraining, Functional Mobility, Group Exercise/Act as Ind ( education, exercise, activity tolerance, functional activities, socialization), UE Funct Exercise/Act, UE Neuromus Re-Ed/Coord, W/C Management Training Treatment Duration: Dec 01, 2016 Frequency: Twice Daily Estimated Hrs Per Day: 1.5 hours per day Agreement: Yes Rehab Potential: Fair Time/GCodes Start Time: 08:00 Stop Time: 09:00 Total Time Billed (hr/min): 60 Billed Treatment Time visit, 50 minutes ADL, 10 minutes neuromotor THAI HOOVER OT Nov 20, 2016 10:32
--- NOTE | 2016-11-20 12:20 | Diagnostic Imaging Report ---
INDICATION: Left hip pain with weightbearing. FINDINGS: Two views show end-stage osteoarthritic changes with flattening of the femoral head along the superolateral aspect. Subcortical cystic changes with marked sclerosis of the acetabular rim with hypertrophic bony changes along the anterolateral aspect of the acetabulum. There is complete loss of joint space. 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 Dictated by: Dictated on workstation # [id number]
--- NOTE | 2016-11-20 13:19 | Occupational Ther Daily Note ---
OT Current Status-Daily Note Subjective Pt seen in room, up in chair, agreeable to OT. Waiting for hip x-ray Mental Status/Objective Functional [place] Measure 0=Not Assessed/NA 4=Minimal Assistance 1=Total Assistance 5=Supervision or Setup 2=Maximal Assistance 6=Modified [place] 3=Moderate Assistance 7=Complete [place] ADL-Treatment Toilet transfer max assist with sit to stand lift. He is able to lift feet and place them on foot rests and raise arms to help with belt placement. Transferred to [facility], needing help managing clothing. Pt is unable to manage hygiene. He was able to pull shorts up to thighs but unable to pull them up over hips because he has too much hip flexion while standing in lift and bars get in the way of reaching for clothes. Pt transferred to B and able to lift legs to get them off lift and maintain sitting. With head of bed up, only required mod assist to lift legs into bed. He was able to do long sitting in bed without back support to work on eating. Used scoop bowl so that he could stab or scoop food. Using built up handle with additional "stop" on it, he was able to stab cut up banana with L hand and get all bites to his mouth. Upper arm unsupported. Requires food surface to be low enough - bowl was placed on his lap. Pt pleased with progress. Pt left up in bed, all needs met, waiting for trip to radiology. Functional [place] Measure 0=Not Assessed/NA 4=Minimal Assistance 1=Total Assistance 5=Supervision or Setup 2=Maximal Assistance 6=Modified [place] 3=Moderate Assistance 7=Complete IndependenceIRFPAI Quality Coding Scale 6 Independent with activity with or without an assistive device 5 Patient requires set up or clean up by helper. Patient completes activity by themselves 4 Supervision or touching assist (CGA). [place] provide cues , steadying assist 3 The helper provides less than half the effort to complete the activity 2 The helper provides more than half the effort to complete the activity 1 Dependent. The helper does all the effort to complete an activity 7 Patient refused to complete or attempt activity 9 The patient did not perform the activity before the current illness or injury 88 Not attempted due to Medical conditions or safety concerns Eating (FIM): 5 (Selected food items) Education OT Patient Education: Modified ADL techniques, Progress toward Goal/Update tx plan, Use of adapted equipment Teaching Recipient: Patient Teaching Methods: Discussion Response to Teaching: Return Demonstration OT Short Term Goals Short Term Goals Time Frame: Nov 17, 2016 Eating(FIM): 4 Grooming(FIM): 3 Upper Body Dressing(FIM): 3 Lower Body Dressing(FIM): 3 Toileting(FIM): 3 Toilet/Commode Transfer(FIM): 3 Shower Transfer(FIM): 3 Additional Short Term Goals: 2-Verbalize Understanding, 3-ImproveStrength/Fady 1=Demonstrate adherence to instructed precautions during ADL tasks. 2=Patient will verbalize/demonstrate understanding of assistive devices/ modifications for ADL. 3=Patient will improve strength/tolerance for activity to enable patient to perform ADL's. OT [facility] Goals Clinic Office Coordinator Goals Time Frame: Dec 01, 2016 Eating (FIM): 5 Eating (QC): 5 Groomin Oral Hygiene (QC): 5 Bathing(FIM): 5 Shower/Bathe Self (QC): 5 Upper Body Dressing(FIM): 5 Upper Body Dressing (QC): 5 Lower Body Dressing(FIM): 5 Lower Body Dressing (QC): 5 On/Off Footwear (QC): 4 Toileting(FIM): 5 Toileting Hygiene (QC): 5 Toilet/Commode Transfer(FIM): 5 Toilet/Commode Transfer (QC): 5 Shower Transfer(FIM): 5 Additional Goals: 2-Verbalize Understanding, 3-ImproveStrength/Fady 1=Demonstrate adherence to instructed precautions during ADL tasks. 2=Patient will verbalize/demonstrate understanding of assistive devices/ modifications for ADL. 3=Patient will improve strength/tolerance for activity to enable patient to perform ADL's. OT Education/Plan Problem List/Assessment Pt would benefit from skilled OT to increase his independence in basic self care to allow him to safely return to his home to live alone and to decrease caregiver burden. Discharge Recommendations Plan/Recommendations: Continue POC Treatment Plan/Plan of Care Patient would benefit from OT for education, treatment and training to promote independence in ADL's, mobility, safety and/or upper extremity function for ADL' s. Plan of Care: ADL Retraining, Functional Mobility, Group Exercise/Act as Ind ( education, exercise, activity tolerance, functional activities, socialization), UE Funct Exercise/Act, UE Neuromus Re-Ed/Coord, W/C Management Training Treatment Duration: Dec 01, 2016 Frequency: Twice Daily Estimated Hrs Per Day: 1.5 hours per day Agreement: Yes Rehab Potential: Fair Time/GCodes Start Time: 11:15 Stop Time: 11:45 Total Time Billed (hr/min): 30 Billed Treatment Time visit, 30 minutes ADL THAI HOOVER OT Nov 20, 2016 13:19
--- NOTE | 2016-11-20 13:36 | Physical Therapy Daily Note ---
PT Daily Note-Current Subjective Patient in bed pre tx, agrees to PT, has 8/10 pain in his left hip. Patient states he needs to use the bedside commode for a BM. He has also gone a little in bed and pants and will need to be changed. Appearance Patient BTB post tx with nurse madelaine, ronel nurse warren in the room. Mental Status Patient Orientation: Normal For Age cervical collar Transfers Functional [place] Measure 0=Not Assessed/NA 4=Minimal Assistance 1=Total Assistance 5=Supervision or Setup 2=Maximal Assistance 6=Modified [place] 3=Moderate Assistance 7=Complete IndependenceIRFPAI Quality Coding Scale 6 Independent with activity with or without an assistive device 5 Patient requires set up or clean up by helper. Patient completes activity by themselves 4 Supervision or touching assist (CGA). [place] provide cues , steadying assist 3 The helper provides less than half the effort to complete the activity 2 The helper provides more than half the effort to complete the activity 1 Dependent. The helper does all the effort to complete an activity 7 Patient refused to complete or attempt activity 9 The patient did not perform the activity before the current illness or injury 88 Not attempted due to Medical conditions or safety concerns Transfers (B, C, W/C) (FIM): 2 Scootin Rollin Supine to/from Sit: 2 Sit to/from Stand: 3 Bed to/from Chair: 3 Patient used to standing machine for the transfer back to bed because he says it is too painful on his left hip to perform a stand pivot transfer. Treatments dressing, transfers, patient was toileted for a BM Assessment Current Status: Poor Progress worse transfer due to hip pain PT Short Term Goals Short Term Goals Time Frame: Nov 10, 2016 Gait (FIM): 1 Gait Distance Comment: 10' Gait Level of Assist: 2 Gait Assistive Device: FWW, Walker Platform Wheelchair Distance: 150'x2 PT Software Development Project Manager Goals Custodial Goals PT Software Development Project Manager Goals Time Frame: Nov 24, 2016 Transfers (B,C,W/C) (FIM): 4 Sit to Lying (QC): 3 Lying-Sitting on Side/Bed(QC): 3 Sit to Stand (QC): 3 Rollin Roll Left to Right (QC): 3 Chair/Dyz-sh-Efsio Xfer(QC): 3 Gait (FIM): 1 Distance: 20' Walk 10 feet (QC): 2 Gait Level of Assist: 2 Gait Assistive Device: FWW, Walker Platform Wheelchair (FIM): 6 Distance: 500' Wheelchair Level of Assist: 6 Wheel 50 feet with 2 turns (QC: 6 PT Plan Problem List Problem List: Activity Tolerance, Functional Strength, Safety, Balance, Gait, Transfer, Bed Mobility, ROM Treatment/Plan Treatment Plan: Continue Plan of Care Treatment Plan: Bed Mobility, Education, Functional Activity Fady, Functional Strength, Group Therapy, Gait, Safety, Therapeutic Exercise, Transfers Treatment Duration: Nov 24, 2016 Frequency: At least 5-7 days/Wk (IRF) Estimated Hrs Per Day: 2 hours per day Patient and/or Family Agrees t: Yes Safety Risks/Education Patient Education: Transfer Techniques, Correct Positioning, Safety Issues Teaching Recipient: Patient Teaching Methods: Demonstration, Discussion Response to Teaching: Reinforcement Needed Time/GCodes Time In: 1300 Time Out: 1330 Total Billed Treatment Time: 30 Total Billed Treatment 1 visit FA 30' CATALINA RUBI PT Nov 20, 2016 13:36
--- NOTE | 2016-11-20 16:14 | Consultation ---
History of Present Illness History of Present Illness Patient Consulted On(brenton/time) 11/20/16 16:08 Date Seen by Provider: Nov 20, 2016 Time Seen by Provider: 16:08 Reason for Visit: left hip pain History of Present Illness This man is on rehab following cervical spine surgery and the left hip is hurting. He had the right hip replaced years ago by Dr. Cantu and did well. He has pain mainly over the hip bursa and not as much over the groin. Allergies and Home Medications Allergies Coded Allergies: No Known Drug Allergies (Verified , 03/18/09) Home Medications Acetaminophen 500 Mg Tablet, 500 MG PO Q6H PRN for PAIN-MILD, (Reported) Celecoxib 400 Mg Capsule, 400 MG PO DAILY, (Reported) Hydrochlorothiazide 25 Mg Tablet, 25 MG PO DAILY, (Reported) Hydrocodone/Acetaminophen 1 Each Tablet, 1 TAB PO Q4H PRN for PAIN-SEVERE, ( Reported) Insulin Regular, Human 100 Unit/1 Ml Vial, 35 UNITS SQ AC, (Reported) Irbesartan 300 Mg Tablet, 300 MG PO HS, (Reported) Metformin HCl 500 Mg Tablet, 500 MG PO BID, (Reported) Multivitamins 1 Tab Tablet, 1 TAB PO DAILY, (Reported) Tramadol HCl 50 Mg Tablet, 50 MG PO HS, (Reported) Verapamil HCl 40 Mg Tablet, 40 MG PO BID, (Reported) Vitamin B Complex 1 Cap Capsule, 1 CAP PO DAILY, (Reported) Past Fvpmbsv-Ppilrx-Yroygc Hx Patient Social History Alcohol Use: Denies Use Recreational Drug Use: No Smoking Status: Former Smoker Type Used: Cigarettes 2nd Hand Smoke Exposure: No Recent Foreign Travel: No Contact w/Someone Who Travel: No Recent Infectious Disease Expo: No Recent Hopitalizations: Yes Physical Abuse Screen: No Sexual Abuse: No Seasonal Allergies Seasonal Allergies: Yes (has chronic sinus problems) Surgeries HX Surgeries: Yes Surgeries: Orthopedic Respiratory Hx Respiratory Disorders: Yes Respiratory Disorders: Sleep Apnea Cardiovascular Hx Cardiac Disorders: Yes Cardiac Disorders: High Cholesterol, Hypertension Neurological Hx Neurological Disorders: Yes Neurological Disorders: Neuropathy Reproductive System Hx Reproductive Disorders: No Genitourinary Hx Genitourinary Disorders: Yes Genitourinary Disorders: Benign Prostatic Hyperpl Gastrointestinal Hx Gastrointestinal Disorders: Yes Gastrointestinal Disorders: Chronic Constipation Musculoskeletal Hx Musculoskeletal Disorders: Yes Musculoskeletal Disorders: Arthritis, Back Injury, Chronic Back Pain, Contracture Endocrine Hx Endocrine Disorders: Yes Endocrine Disorders: Diabetes, Insulin dep HEENT HX ENT Disorders: No HEENT Disorders: Cataract Loss of Vision: Bilateral Hearing Impairment: Denies Cancer Hx Cancer: No Psychosocial Hx Psychiatric Problems: No Integumentary Skin/Integumentary Disorders: Psoriasis Blood Transfusions Hx Blood Disorders: No Family Medical History Family Medial History: Cardiovascular disease G8 SISTER Deafness or hearing loss 19 FATHER Hypertension G8 SISTER Thyroid disease 19 FATHER Physical Exam-General Problems Physical Exam Vital Signs Vital Sign - Last 12Hours 11/14/16 05:00 Temp 97.5 Pulse 90 Resp 20 B/P (MAP) 127/80 Pulse Ox 100 O2 Delivery NIV CPAP Capillary Refill : General Appearance: WD/WN Cardiovascular: normal peripheral pulses Extremities: normal capillary refill, pelvis stable, other (Left hip tender over the hip bursa and greater trochanter. Moderate limitation in hip range of motion noted.) Neurologic/Psychiatric: alert, oriented x 3 Assessment/Plan Assessment/Plan Admission Diagnosis/Plan Primary DJD of left hip-- he needs a total hip replacement but needs to heal up from the cervical surgery Left hip trochanteric bursitis-- He is pretty tender over the hip bursa and I will inject it. Cervical stenosis Clinical Quality Measures DVT/VTE Risk/Contraindication: Risk Factor Score Per Nursin RFS Level Per Nursing on Admit: 4+=Very High Procedure and Findings The left hip was prepped with Chloroprep and injected with a mixture of Kenalog 40 mg and Lidocaine 1% 3 ml under sterile technique without difficulty. TONI GALVAN MD Nov 20, 2016 16:14
[2016-11-20] MEDS ORDERED: TRIAMCINOLONE ACET (KENALOG-40) 40 MG/ML 1 ML VIAL IB ONE (16:15)
[2016-11-20] MEDS ORDERED: LIDOCAINE 1% INJ 20 ML (XYLOCAINE) VIAL INJ ONE (16:15)
--- NOTE | 2016-11-20 16:36 | Procedure/Intervention Note ---
Procedure Note Vital Signs Vital Signs Date Time Temp Pulse Resp B/P (MAP) Pulse Ox O2 Delivery O2 Flow Rate FiO2 11/20/16 09:28 Room Air 11/20/16 05:48 98.0 87 16 133/88 96 Procedure Note Left hip injection Trochanteric bursa. Left lateral hip was prepped with Alcohol and Betadine And 40 mg of KENALOG and 3 cc of 1% lidocaine was injected into the left trochanteric bursa without difficulty. Patient tolerated procedure well. He was told affects of the injection could take a few days. TACO GRAHAM Nov 20, 2016 16:36 TONI GALVAN MD Nov 20, 2016 16:47
[2016-11-20 18:00] VITALS: BP 126/78
[2016-11-20] MEDS: IRBESARTAN 150 MG (AVAPRO) TAB PO SCH (20:20)
[2016-11-21] MEDS: HYDROcodone/APAP 10 MG/325 MG (LORTAB) TAB PO PRN ×5 (05:13→21:38)
[2016-11-21 05:30] VITALS: BP 141/91
[2016-11-21] MEDS: metFORMIN 500 MG (GLUCOPHAGE) TAB PO SCH ×2 (06:06→17:34)
[2016-11-21] MEDS: MULTIVIT W/MINERALS TAB (THERAGRAN M) PO SCH (06:06)
[2016-11-21] MEDS: TRIM/SULFAMETH 160/800 (SEPTRA DS) TAB PO SCH ×2 (06:06→17:34)
[2016-11-21] MEDS: inSUlin (REGULAR) HUMAN 1 UNIT/0.01 ML (CHARGE PER UNIT) SC SCH ×3 (06:10→15:32)
[2016-11-21] MEDS: LACTULOSE SYRUP 10GM/15ML (ENULOSE) 30ML UDC PO SCH ×2 (08:22→20:32)
[2016-11-21] MEDS: amLODIPine 5 MG (NORVASC) TAB PO SCH (08:22)
[2016-11-21] MEDS: HYDROCHLOROTHIAZIDE 25 MG (HCTZ) TAB PO SCH (08:22)
[2016-11-21] MEDS: SENNA W/DOCUSATE (SENOKOT S) TABLET PO SCH ×2 (08:22→20:32)
[2016-11-21] MEDS: MENTHOL/ZINC OXIDE (CALMOSEPTINE) 113 GM TUBE TOP SCH ×2 (08:25→20:33)
[2016-11-21] MEDS: A & D OINT 60 GM TUBE TOP SCH (08:26)
[2016-11-21] MEDS: MICONAZOLE 2% POWDER (DESENEX AF) 90 GM TOP SCH ×2 (08:26→20:33)
[2016-11-21] MEDS: POLYETHYLENE GLYCOL 17 GM (MIRALAX) PACK PO SCH ×2 (08:26→20:32)
--- NOTE | 2016-11-21 09:34 | Physical Therapy Daily Note ---
PT Daily Note-Current Subjective Patient in bed pre tx, agrees to PT, has pain of 8/10 in right shoulder and left hip. Appearance Patient in power chair post tx, he is mod I with wheelchair mobility. Mental Status Patient Orientation: Normal For Age cervical collar Transfers Functional [place] Measure 0=Not Assessed/NA 4=Minimal Assistance 1=Total Assistance 5=Supervision or Setup 2=Maximal Assistance 6=Modified [place] 3=Moderate Assistance 7=Complete IndependenceIRFPAI Quality Coding Scale 6 Independent with activity with or without an assistive device 5 Patient requires set up or clean up by helper. Patient completes activity by themselves 4 Supervision or touching assist (CGA). [place] provide cues , steadying assist 3 The helper provides less than half the effort to complete the activity 2 The helper provides more than half the effort to complete the activity 1 Dependent. The helper does all the effort to complete an activity 7 Patient refused to complete or attempt activity 9 The patient did not perform the activity before the current illness or injury 88 Not attempted due to Medical conditions or safety concerns Transfers (B, C, W/C) (FIM): 3 Scootin Rollin Supine to/from Sit: 4 Sit to/from Stand: 4 Bed to/from Chair: 3 Patient was able to get to the edge of the bed with min assist if the head of his bed is raised all the way, he just needed assist with one leg and a little to scoot forward Exercises Standing in parallel bars x2 with min assist for 5 min each time Assessment Current Status: Fair Progress improved transfers PT Short Term Goals Short Term Goals Time Frame: Nov 10, 2016 Gait (FIM): 1 Gait Distance Comment: 10' Gait Level of Assist: 2 Gait Assistive Device: FWW, Walker Platform Wheelchair Distance: 150'x2 PT Production Superintendent [employer] Goals Skilled Nursing Goals PT Skilled Nursing Goals Time Frame: Nov 24, 2016 Transfers (B,C,W/C) (FIM): 4 Sit to Lying (QC): 3 Lying-Sitting on Side/Bed(QC): 3 Sit to Stand (QC): 3 Rollin Roll Left to Right (QC): 3 Chair/Ypm-we-Ajtoq Xfer(QC): 3 Gait (FIM): 1 Distance: 20' Walk 10 feet (QC): 2 Gait Level of Assist: 2 Gait Assistive Device: FWW, Walker Platform Wheelchair (FIM): 6 Distance: 500' Wheelchair Level of Assist: 6 Wheel 50 feet with 2 turns (QC: 6 PT Plan Problem List Problem List: Activity Tolerance, Functional Strength, Safety, Balance, Gait, Transfer, Bed Mobility, ROM Treatment/Plan Treatment Plan: Continue Plan of Care Treatment Plan: Bed Mobility, Education, Functional Activity Fady, Functional Strength, Group Therapy, Gait, Safety, Therapeutic Exercise, Transfers Treatment Duration: Nov 24, 2016 Frequency: At least 5-7 days/Wk (IRF) Estimated Hrs Per Day: 2 hours per day Patient and/or Family Agrees t: Yes Safety Risks/Education Patient Education: Transfer Techniques, Correct Positioning, Safety Issues Teaching Recipient: Patient Teaching Methods: Demonstration, Discussion Response to Teaching: Reinforcement Needed Time/GCodes Time In: 900 Time Out: 930 Total Billed Treatment Time: 30 Total Billed Treatment 1 visit EX 10' FA 20' CATALINA RUBI PT Nov 21, 2016 09:34
[2016-11-21 18:12] VITALS: BP 138/77
[2016-11-21] MEDS: DIAZEPAM 5 MG (VALIUM) TABLET PO PRN (18:44)
[2016-11-21] MEDS: IRBESARTAN 150 MG (AVAPRO) TAB PO SCH (20:32)
[2016-11-22] MEDS: DIAZEPAM 5 MG (VALIUM) TABLET PO PRN (02:14)
[2016-11-22] MEDS: HYDROcodone/APAP 10 MG/325 MG (LORTAB) TAB PO PRN ×5 (02:15→20:54)
[2016-11-22 06:00] VITALS: BP 146/89
[2016-11-22] MEDS: inSUlin (REGULAR) HUMAN 1 UNIT/0.01 ML (CHARGE PER UNIT) SC SCH ×3 (06:46→17:54)
[2016-11-22] MEDS: MULTIVIT W/MINERALS TAB (THERAGRAN M) PO SCH (06:47)
[2016-11-22] MEDS: metFORMIN 500 MG (GLUCOPHAGE) TAB PO SCH ×2 (06:47→16:14)
[2016-11-22] MEDS: TRIM/SULFAMETH 160/800 (SEPTRA DS) TAB PO SCH ×2 (06:47→16:14)
[2016-11-22] MEDS: A & D OINT 60 GM TUBE TOP SCH (08:07)
[2016-11-22] MEDS: SENNA W/DOCUSATE (SENOKOT S) TABLET PO SCH ×2 (08:07→20:54)
[2016-11-22] MEDS: HYDROCHLOROTHIAZIDE 25 MG (HCTZ) TAB PO SCH (08:07)
[2016-11-22] MEDS: amLODIPine 5 MG (NORVASC) TAB PO SCH (08:07)
[2016-11-22] MEDS: MICONAZOLE 2% POWDER (DESENEX AF) 90 GM TOP SCH ×2 (08:07→20:54)
[2016-11-22] MEDS: POLYETHYLENE GLYCOL 17 GM (MIRALAX) PACK PO SCH ×2 (08:11→20:54)
[2016-11-22] MEDS: LACTULOSE SYRUP 10GM/15ML (ENULOSE) 30ML UDC PO SCH ×2 (08:11→20:55)
[2016-11-22] MEDS: MENTHOL/ZINC OXIDE (CALMOSEPTINE) 113 GM TUBE TOP SCH ×2 (08:11→20:54)
[2016-11-22 18:07] VITALS: BP 130/78
[2016-11-22] MEDS: IRBESARTAN 150 MG (AVAPRO) TAB PO SCH (20:54)
[2016-11-23] MEDS: HYDROcodone/APAP 10 MG/325 MG (LORTAB) TAB PO PRN ×5 (02:06→20:11)
[2016-11-23 05:21] VITALS: BP 137/89
[2016-11-23] MEDS: MULTIVIT W/MINERALS TAB (THERAGRAN M) PO SCH (06:22)
[2016-11-23] MEDS: TRIM/SULFAMETH 160/800 (SEPTRA DS) TAB PO SCH ×2 (06:22→17:34)
[2016-11-23] MEDS: metFORMIN 500 MG (GLUCOPHAGE) TAB PO SCH ×2 (06:22→17:34)
[2016-11-23] MEDS: inSUlin (REGULAR) HUMAN 1 UNIT/0.01 ML (CHARGE PER UNIT) SC SCH ×4 (06:50→20:11)
[2016-11-23 07:22] LABS: ANION GAP 9 MMOL/L (5-14); BLOOD UREA NITROGEN 18 MG/DL (7-18); BUN/CREATININE RATIO 27; CALCIUM 9.1 MG/DL (8.5-10.1); CARBON DIOXIDE 24 MMOL/L (21-32); CHLORIDE 103 MMOL/L (98-107); CREATININE SERUM 0.67 MG/DL (0.60-1.30); GFR ESTIMATED > 60; GLUCOSE 144 MG/DL (70-105); SODIUM 136 MMOL/L (135-145)
[2016-11-23] MEDS: HYDROCHLOROTHIAZIDE 25 MG (HCTZ) TAB PO SCH (08:16)
[2016-11-23] MEDS: POLYETHYLENE GLYCOL 17 GM (MIRALAX) PACK PO SCH ×2 (08:16→20:12)
[2016-11-23] MEDS: SENNA W/DOCUSATE (SENOKOT S) TABLET PO SCH ×2 (08:16→20:10)
[2016-11-23] MEDS: LACTULOSE SYRUP 10GM/15ML (ENULOSE) 30ML UDC PO SCH ×2 (08:16→20:12)
[2016-11-23] MEDS: amLODIPine 5 MG (NORVASC) TAB PO SCH (08:16)
[2016-11-23] MEDS: MENTHOL/ZINC OXIDE (CALMOSEPTINE) 113 GM TUBE TOP SCH ×2 (08:17→20:13)
[2016-11-23] MEDS: A & D OINT 60 GM TUBE TOP SCH (08:17)
[2016-11-23] MEDS: MICONAZOLE 2% POWDER (DESENEX AF) 90 GM TOP SCH ×2 (08:17→20:13)
--- NOTE | 2016-11-23 10:21 | Occupational Ther Daily Note ---
OT Current Status-Daily Note Subjective Pt seen inroom, agreeable to OT. No pain reported. Pt arias sot know if hip pain is better because he hasn't been up on it walking yet. Appearance Alert, cooperative Mental Status/Objective Functional [place] Measure 0=Not Assessed/NA 4=Minimal Assistance 1=Total Assistance 5=Supervision or Setup 2=Maximal Assistance 6=Modified [place] 3=Moderate Assistance 7=Complete [place] ADL-Treatment Pt did not want to shower or change clothes (he showered over the weekend) but did want to shave. He propelled himself to accessible bathroom and opened the door himself, pushing on door to go in to bathroom. He was also able to position chair at countertop to shave and brush teeth. Needed setup with universal cuff on L hand, help to put on shaving cream (actually dandruff shampoo to manage dry skin on face), occasional help to reposition razor. Able to get face wet all over. Able to shave about half of face and today could get to right side of lips and chin. Help needed to finish shaving and to wash face off. With setup, pt was able to brush all of teeth and get a drink to rinse mouth. Rests L arm on countertop but also able to do part of ADL with L arm free. Functional [place] Measure 0=Not Assessed/NA 4=Minimal Assistance 1=Total Assistance 5=Supervision or Setup 2=Maximal Assistance 6=Modified [place] 3=Moderate Assistance 7=Complete IndependenceIRFPAI Quality Coding Scale 6 Independent with activity with or without an assistive device 5 Patient requires set up or clean up by helper. Patient completes activity by themselves 4 Supervision or touching assist (CGA). [place] provide cues , steadying assist 3 The helper provides less than half the effort to complete the activity 2 The helper provides more than half the effort to complete the activity 1 Dependent. The helper does all the effort to complete an activity 7 Patient refused to complete or attempt activity 9 The patient did not perform the activity before the current illness or injury 88 Not attempted due to Medical conditions or safety concerns Toileting (FIM): 1 (Help to manage hygiene and clothing. Sit to stand lift, BSC ) Toilet/Commode Transfer (FIM): 1 (Sit to stand lift, BSC) Other Treatment Pt propelled himself to gym, per power chair. Worked on reaching, grasping, placing, releasing objects (cones). With L hand could reach for cones on table top and also up in the air in various locations. With R hand, could reach for cone on table top and help needed to place it. He could grasp cone using ring and little fingers but index doesn't flex enough. Used pron/sup to help stack about 5 cones with R hand. Pt returned to room, left up in power chair, call light present, all needs met. Education OT Patient Education: Modified ADL techniques, Progress toward Goal/Update tx plan, Purpose of tx/functional activities, Use of adapted equipment Teaching Recipient: Patient Teaching Methods: Demonstration Response to Teaching: Return Demonstration OT Short Term Goals Short Term Goals Time Frame: Nov 17, 2016 Eating(FIM): 4 Grooming(FIM): 3 Upper Body Dressing(FIM): 3 Lower Body Dressing(FIM): 3 Toileting(FIM): 3 Toilet/Commode Transfer(FIM): 3 Shower Transfer(FIM): 3 Additional Short Term Goals: 2-Verbalize Understanding, 3-ImproveStrength/Fady 1=Demonstrate adherence to instructed precautions during ADL tasks. 2=Patient will verbalize/demonstrate understanding of assistive devices/ modifications for ADL. 3=Patient will improve strength/tolerance for activity to enable patient to perform ADL's. OT Group Home Goals Group Home Goals Time Frame: Dec 01, 2016 Eating (FIM): 5 Eating (QC): 5 Groomin Oral Hygiene (QC): 5 Bathing(FIM): 5 Shower/Bathe Self (QC): 5 Upper Body Dressing(FIM): 5 Upper Body Dressing (QC): 5 Lower Body Dressing(FIM): 5 Lower Body Dressing (QC): 5 On/Off Footwear (QC): 4 Toileting(FIM): 5 Toileting Hygiene (QC): 5 Toilet/Commode Transfer(FIM): 5 Toilet/Commode Transfer (QC): 5 Shower Transfer(FIM): 5 Additional Goals: 2-Verbalize Understanding, 3-ImproveStrength/Fady 1=Demonstrate adherence to instructed precautions during ADL tasks. 2=Patient will verbalize/demonstrate understanding of assistive devices/ modifications for ADL. 3=Patient will improve strength/tolerance for activity to enable patient to perform ADL's. OT Education/Plan Problem List/Assessment Pt would benefit from skilled OT to increase his independence in basic self care to allow him to safely return to his home to live alone and to decrease caregiver burden. Discharge Recommendations Plan/Recommendations: Continue POC Treatment Plan/Plan of Care Patient would benefit from OT for education, treatment and training to promote independence in ADL's, mobility, safety and/or upper extremity function for ADL' s. Plan of Care: ADL Retraining, Functional Mobility, Group Exercise/Act as Ind ( education, exercise, activity tolerance, functional activities, socialization), UE Funct Exercise/Act, UE Neuromus Re-Ed/Coord, W/C Management Training Treatment Duration: Dec 01, 2016 Frequency: Twice Daily Estimated Hrs Per Day: 1.5 hours per day Agreement: Yes Rehab Potential: Fair Time/GCodes Start Time: 08:30 Stop Time: 09:30 Total Time Billed (hr/min): 60 Billed Treatment Time visit, ADL 35 minutes, neuromotor 25 minutes THAI HOOVER OT Nov 23, 2016 10:21
--- NOTE | 2016-11-23 11:31 | Physical Therapy Daily Note ---
PT Daily Note-Current Subjective Patient on bedside commode pre tx, agrees to PT, will assist with standing so nursing can clean him and pull up his pants and get him into the wheelchair. Patient has pain of 6/10 in right shoulder and left hip, states he would like to have estim on his right shoulder. Appearance Patient in power chair post tx, he is mod I with wheelchair mobility. Mental Status Patient Orientation: Normal For Age cervical collar Transfers Functional [place] Measure 0=Not Assessed/NA 4=Minimal Assistance 1=Total Assistance 5=Supervision or Setup 2=Maximal Assistance 6=Modified [place] 3=Moderate Assistance 7=Complete IndependenceIRFPAI Quality Coding Scale 6 Independent with activity with or without an assistive device 5 Patient requires set up or clean up by helper. Patient completes activity by themselves 4 Supervision or touching assist (CGA). [place] provide cues , steadying assist 3 The helper provides less than half the effort to complete the activity 2 The helper provides more than half the effort to complete the activity 1 Dependent. The helper does all the effort to complete an activity 7 Patient refused to complete or attempt activity 9 The patient did not perform the activity before the current illness or injury 88 Not attempted due to Medical conditions or safety concerns Transfers (B, C, W/C) (FIM): 2 Scootin Rollin Supine to/from Sit: 2 Sit to/from Stand: 3 Bed to/from Chair: 3 Patient did improve with his stand pivot transfer, still mod assist and he needs quite a bit of assistance with his balance but he has shown some improvement. Gait Training Gait (FIM): 2 Distance: 50'x2 Gait Level of Assist: 3 Gait Persons Needed: 1 Bilateral platform walker, patient was pretty tired today, he is able to advance both legs without assist. Exercises Patient was transferred to the therapy table and layed down for interferential estim and MHP to right shoulder while PROM/stretching was performed on both legs in all planes Treatments transfers, toileting, ambulation, bed mobility, estim, ROM Assessment Current Status: Fair Progress slowly improving stand pivot transfer, bed mobility continues to be max assist PT Short Term Goals Short Term Goals Time Frame: Nov 10, 2016 Gait (FIM): 1 Gait Distance Comment: 10' Gait Level of Assist: 2 Gait Assistive Device: FWW, Walker Platform Wheelchair Distance: 150'x2 PT Residential Goals Residential Goals PT Residential Goals Time Frame: Nov 24, 2016 Transfers (B,C,W/C) (FIM): 4 Sit to Lying (QC): 3 Lying-Sitting on Side/Bed(QC): 3 Sit to Stand (QC): 3 Rollin Roll Left to Right (QC): 3 Chair/Lcj-te-Atmfk Xfer(QC): 3 Gait (FIM): 1 Distance: 20' Walk 10 feet (QC): 2 Gait Level of Assist: 2 Gait Assistive Device: FWW, Walker Platform Wheelchair (FIM): 6 Distance: 500' Wheelchair Level of Assist: 6 Wheel 50 feet with 2 turns (QC: 6 PT Plan Problem List Problem List: Activity Tolerance, Functional Strength, Safety, Balance, Gait, Transfer, Bed Mobility, ROM Treatment/Plan Treatment Plan: Continue Plan of Care Treatment Plan: Bed Mobility, Education, Functional Activity Fady, Functional Strength, Group Therapy, Gait, Safety, Therapeutic Exercise, Transfers Treatment Duration: Nov 24, 2016 Frequency: At least 5-7 days/Wk (IRF) Estimated Hrs Per Day: 2 hours per day Patient and/or Family Agrees t: Yes Safety Risks/Education Patient Education: Gait Training, Transfer Techniques, Correct Positioning, Safety Issues Teaching Recipient: Patient Teaching Methods: Demonstration, Discussion Response to Teaching: Reinforcement Needed Time/GCodes Time In: 1030 Time Out: 1130 Total Billed Treatment Time: 60 Total Billed Treatment 1 visit GT 30' EX 15' FA 15' CATALINA RUBI PT Nov 23, 2016 11:31
--- NOTE | 2016-11-23 15:46 | Therapy Group Daily Note ---
Therapy Daily Group Note Patient Education Topic Other List Below (pain) Exercises LE Seated Exercise, UE Exercise, Other (breathing) Other/Notes Pt transferred to motorized w/c with mod A then maneuvered w/c to OT/PT group. OT/PT group consisted of introductions (name, place living, what do you do to relax), speaker for pain education, breathing techniques and UE/LE seated exercises. Pt was attentive throughout group. Pt was quiet throughout group and appeared tired. Pt was appropriate with introductions and interactions with other group members. Pt verbalized understanding of pain education. Pt was able to complete breathing techniques appropriately. Able to complete LE exercises. Decreased AROM with B shldrs, modified UE exercises completed. After therapy, pt sitting in w/c in room. Call light/phone in reach. All needs met in room. Start Time: 13:00 Stop Time: 14:05 Total Billed Treatment Time: 65 Total Billed Treatment 1-GRP PREMA MEJIAS Nov 23, 2016 15:46
[2016-11-23] MEDS: DIAZEPAM 5 MG (VALIUM) TABLET PO PRN (17:34)
[2016-11-23 18:10] VITALS: BP 135/77
--- NOTE | 2016-11-23 18:26 | PM & R (SOAP) Progress Note ---
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 slowly improving Review of Systems Neurological: Weakness Objective Exam Last Set of Vital Signs Vital Signs Date Time Temp Pulse Resp B/P (MAP) Pulse Ox O2 Delivery O2 Flow Rate FiO2 11/23/16 18:10 98.9 97 16 135/77 97 Room Air Capillary Refill : I&O Intake and Output 11/23/16 00:00 Intake Total 1660 ml Output Total 2175 ml Balance -515 ml Intake Oral 1660 ml Output Urine Total 2175 ml General: Alert, Oriented X3, Cooperative, No Acute Distress HEENT: Atraumatic, PERRLA, EOMI, Mucous Memb Moist/[place] Neck: Supple, Other (inciasion healing well C Collar in place) Lungs: Clear to Auscultation Heart: Regular Rate Abdomen: Normal Bowel Sounds Extremities: Other (trace edema rt hand) Skin: Other (rt heel wrapped) Neuro: Other (2-3 strength rt UE Numbness rt hand) Results Lab Laboratory Tests 11/20/16 22:50: Glucometer 142H 11/21/16 05:26: Glucometer 138H 11/21/16 11:14: Glucometer 129H 11/21/16 16:00: Glucometer 197H 11/21/16 20:19: Glucometer 149H 11/22/16 06:45: Glucometer 135H 11/22/16 10:57: Glucometer 131H 11/22/16 16:04: Glucometer 283H 11/22/16 20:23: Glucometer 165H 11/23/16 04:44: Glucometer 159H 11/23/16 06:55: Sodium Level 136, Potassium Level 4.0, Chloride Level 103, Carbon Dioxide Level 24, Anion Gap 9, Blood Urea Nitrogen 18, Creatinine 0.67, Estimat Glomerular Filtration Rate > 60, BUN/Creatinine Ratio 27, Glucose Level 144H, Calcium Level 9.1 11/23/16 11:30: Glucometer 114H 11/23/16 16:33: Glucometer 218H Assessment/Plan Assessment Cervical spine spondylosis with myelopathy s/p decompression DR Atkinson affecting U Limbs more then Lower with strength gradually improving but remaining with 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 affecting ADL skills Dysphagia improved diet advanced- to regular consistency discussed with RN AMY on cpap HTN controlled DM with episode of hypoglycemia Dr juarez has adjusted insulin -improved HLP Intolerance to oxy-disturbed sleep Pressure sore rt heel-improving DJD Left Knee DJD left Hip S/P rt HIP relacement DR Cantu remote Trochanteric bursitis left hip s/p Injection DR Riley Plan Continue PT/OT/Pain management F/U with Hospitalist and DR Atkinson as per their schedule Trend Accucheks and adjust insulin as needed Pain management Changed meds-improved Wound care reconsult to check rt heel -see orders-done as per above Patient doing better with switch to hydrocodone for pain-less side effects report Discussed discharge options.with SW. Check Xray left hip-done Consult ortho re possible injection for pain control-done Next Team Conference 11/25/16 JOSEY SALINAS MD Nov 23, 2016 18:26
[2016-11-23] MEDS: IRBESARTAN 150 MG (AVAPRO) TAB PO SCH (20:11)
[2016-11-24] MEDS: HYDROcodone/APAP 10 MG/325 MG (LORTAB) TAB PO PRN ×5 (00:32→20:54)
[2016-11-24 04:14] VITALS: BP 120/74
[2016-11-24] MEDS: metFORMIN 500 MG (GLUCOPHAGE) TAB PO SCH ×2 (06:21→18:07)
[2016-11-24] MEDS: TRIM/SULFAMETH 160/800 (SEPTRA DS) TAB PO SCH ×2 (06:21→18:07)
[2016-11-24] MEDS: MULTIVIT W/MINERALS TAB (THERAGRAN M) PO SCH (06:21)
[2016-11-24] MEDS: inSUlin (REGULAR) HUMAN 1 UNIT/0.01 ML (CHARGE PER UNIT) SC SCH ×3 (06:55→18:10)
[2016-11-24 08:20] VITALS: BP 131/84
[2016-11-24] MEDS: amLODIPine 5 MG (NORVASC) TAB PO SCH (08:41)
[2016-11-24] MEDS: SENNA W/DOCUSATE (SENOKOT S) TABLET PO SCH ×2 (08:41→20:52)
[2016-11-24] MEDS: HYDROCHLOROTHIAZIDE 25 MG (HCTZ) TAB PO SCH (08:41)
[2016-11-24] MEDS: MICONAZOLE 2% POWDER (DESENEX AF) 90 GM TOP SCH ×2 (08:53→20:53)
[2016-11-24] MEDS: MENTHOL/ZINC OXIDE (CALMOSEPTINE) 113 GM TUBE TOP SCH ×2 (08:53→20:57)
[2016-11-24] MEDS: A & D OINT 60 GM TUBE TOP SCH (08:53)
[2016-11-24] MEDS: POLYETHYLENE GLYCOL 17 GM (MIRALAX) PACK PO SCH ×2 (08:54→20:52)
[2016-11-24] MEDS: LACTULOSE SYRUP 10GM/15ML (ENULOSE) 30ML UDC PO SCH ×2 (08:54→20:52)
--- NOTE | 2016-11-24 09:58 | Physical Therapy Daily Note ---
PT Daily Note-Current Subjective Patient in power chair pre tx, agrees to PT, has pain of 7/10 in left hip. Appearance Patient in power chair post tx, he is mod I with wheelchair mobility Mental Status Patient Orientation: Normal For Age cervical collar Transfers Functional [place] Measure 0=Not Assessed/NA 4=Minimal Assistance 1=Total Assistance 5=Supervision or Setup 2=Maximal Assistance 6=Modified [place] 3=Moderate Assistance 7=Complete IndependenceIRFPAI Quality Coding Scale 6 Independent with activity with or without an assistive device 5 Patient requires set up or clean up by helper. Patient completes activity by themselves 4 Supervision or touching assist (CGA). [place] provide cues , steadying assist 3 The helper provides less than half the effort to complete the activity 2 The helper provides more than half the effort to complete the activity 1 Dependent. The helper does all the effort to complete an activity 7 Patient refused to complete or attempt activity 9 The patient did not perform the activity before the current illness or injury 88 Not attempted due to Medical conditions or safety concerns Transfers (B, C, W/C) (FIM): 3 Sit to/from Stand: 3 Bed to/from Chair: 3 Patient continues to improve with sit to stand and stand pivot transfers, he is getting close to being min assist with these, unless he is standing from a very low surface. Gait Training Gait (FIM): 2 Distance: 75'x2 Gait Level of Assist: 4 Gait Persons Needed: 1 Patient ambulated 75'x2 with a bilateral platform walker with min assist. Patient is advancing his feet better, smoother Exercises NuStep Minutes: 15 NuStep Workload: 4 Treatments transfers, ambulation, functional strengthening Assessment Current Status: Fair Progress slowly improving balance and transfers PT Short Term Goals Short Term Goals Time Frame: Nov 10, 2016 Gait (FIM): 1 Gait Distance Comment: 10' Gait Level of Assist: 2 Gait Assistive Device: FWW, Walker Platform Wheelchair Distance: 150'x2 PT Detailer Goals Care Home Goals PT Detailer Goals Time Frame: Nov 24, 2016 Transfers (B,C,W/C) (FIM): 4 Sit to Lying (QC): 3 Lying-Sitting on Side/Bed(QC): 3 Sit to Stand (QC): 3 Rollin Roll Left to Right (QC): 3 Chair/[id number] Xfer(QC): 3 Gait (FIM): 1 Distance: 20' Walk 10 feet (QC): 2 Gait Level of Assist: 2 Gait Assistive Device: FWW, Walker Platform Wheelchair (FIM): 6 Distance: 500' Wheelchair Level of Assist: 6 Wheel 50 feet with 2 turns (QC: 6 PT Plan Problem List Problem List: Activity Tolerance, Functional Strength, Safety, Balance, Gait, Transfer, Bed Mobility, ROM Treatment/Plan Treatment Plan: Continue Plan of Care Treatment Plan: Bed Mobility, Education, Functional Activity Fady, Functional Strength, Group Therapy, Gait, Safety, Therapeutic Exercise, Transfers Treatment Duration: Nov 24, 2016 Frequency: At least 5-7 days/Wk (IRF) Estimated Hrs Per Day: 2 hours per day Patient and/or Family Agrees t: Yes Safety Risks/Education Patient Education: Gait Training, Transfer Techniques, Correct Positioning, Safety Issues Teaching Recipient: Patient Teaching Methods: Demonstration, Discussion Response to Teaching: Reinforcement Needed Time/GCodes Time In: 900 Time Out: 1000 Total Billed Treatment Time: 60 Total Billed Treatment 1 visit GT 30' EX 15' FA 15' CATALINA RUBI PT Nov 24, 2016 09:58
--- NOTE | 2016-11-24 10:35 | Progress Note-Hospitalist ---
Progress Note Progress Notes/Assess & Plan Date Seen 11/24/16 Time Seen by Provider: 09:30 Diagonsis/Assessment & Plan Patient doing ok NHP pending BM+ No pain is reported AFVSS, pleasant, O x 3, improved RRR, CTAB unchanged weakness of extremity movement and strength No edema Assessment: Status post cervical spine surgery stage II of 2 stage surgery for spinal cord compression Dysphagia due to edema from neck surgery now resolved Diabetes mellitus Obstructive sleep apnea compliant with treatment Hypertension Hyperlipidemia Status post narcotic bowel requiring soapsuds enema for disimpaction 2 and half weeks ago maintained on regimen Plan: NH at NH Continue insulin as it is now Scribed by Michelle Garcia under the direct supervision of Dr. Duvall. KEANU DUVALL DO Nov 24, 2016 10:35
--- NOTE | 2016-11-24 11:30 | Occupational Ther Daily Note ---
OT Current Status-Daily Note Subjective Pt seen in room, up in bed, agreeable to OT. No pain mentioned. Pt thinks hip doing better after injection Appearance Alert, cooperative Mental Status/Objective Functional [place] Measure 0=Not Assessed/NA 4=Minimal Assistance 1=Total Assistance 5=Supervision or Setup 2=Maximal Assistance 6=Modified [place] 3=Moderate Assistance 7=Complete [place] ADL-Treatment Pt requested shower. At end of tx, pt left up in power chair (transferred per sit to stand lift), all needs met. Functional [place] Measure 0=Not Assessed/NA 4=Minimal Assistance 1=Total Assistance 5=Supervision or Setup 2=Maximal Assistance 6=Modified [place] 3=Moderate Assistance 7=Complete IndependenceIRFPAI Quality Coding Scale 6 Independent with activity with or without an assistive device 5 Patient requires set up or clean up by helper. Patient completes activity by themselves 4 Supervision or touching assist (CGA). [place] provide cues , steadying assist 3 The helper provides less than half the effort to complete the activity 2 The helper provides more than half the effort to complete the activity 1 Dependent. The helper does all the effort to complete an activity 7 Patient refused to complete or attempt activity 9 The patient did not perform the activity before the current illness or injury 88 Not attempted due to Medical conditions or safety concerns Bathing (FIM): 3 (55-60%. Able to hold wash cloth better with L hand. Also able to get himself wet with hand held shower. Grab bar, rolling shower chair. OT washed hair) Bathing Location: L Arm (part), R Arm, L Upper Leg, R Upper Leg, Chest, Abdomen Upper Body (FIM): 3 (Able thread both hands and pull shirt up on R arm but not left. Help to get shirt over ) Lower Body Dressing (FIM): 2 (Pt is able to pick feet up and put them in pants and help pull pants up over knees, using both hands. Sit to stand lift to stand for pants to be pulled up. Dependant socks and shoes but pt is able to pick feet up to help with puttig them on.) Shower Transfer(FIM): 1 (sit to stand lift to transfer on/off rolling shower chair. Pt is unable to transport chair to shower in his room. ) Education OT Patient Education: Modified ADL techniques, Progress toward Goal/Update tx plan Teaching Recipient: Patient Teaching Methods: Discussion Response to Teaching: Return Demonstration OT Short Term Goals Short Term Goals Time Frame: Nov 17, 2016 Eating(FIM): 4 Grooming(FIM): 3 Upper Body Dressing(FIM): 3 Lower Body Dressing(FIM): 3 Toileting(FIM): 3 Toilet/Commode Transfer(FIM): 3 Shower Transfer(FIM): 3 Additional Short Term Goals: 2-Verbalize Understanding, 3-ImproveStrength/Fady 1=Demonstrate adherence to instructed precautions during ADL tasks. 2=Patient will verbalize/demonstrate understanding of assistive devices/ modifications for ADL. 3=Patient will improve strength/tolerance for activity to enable patient to perform ADL's. OT [place] Worker Goals Assisted Goals Time Frame: Dec 01, 2016 Eating (FIM): 5 Eating (QC): 5 Groomin Oral Hygiene (QC): 5 Bathing(FIM): 5 Shower/Bathe Self (QC): 5 Upper Body Dressing(FIM): 5 Upper Body Dressing (QC): 5 Lower Body Dressing(FIM): 5 Lower Body Dressing (QC): 5 On/Off Footwear (QC): 4 Toileting(FIM): 5 Toileting Hygiene (QC): 5 Toilet/Commode Transfer(FIM): 5 Toilet/Commode Transfer (QC): 5 Shower Transfer(FIM): 5 Additional Goals: 2-Verbalize Understanding, 3-ImproveStrength/Fady 1=Demonstrate adherence to instructed precautions during ADL tasks. 2=Patient will verbalize/demonstrate understanding of assistive devices/ modifications for ADL. 3=Patient will improve strength/tolerance for activity to enable patient to perform ADL's. OT Education/Plan Problem List/Assessment Pt would benefit from skilled OT to increase his independence in basic self care to allow him to safely return to his home to live alone and to decrease caregiver burden. Discharge Recommendations Plan/Recommendations: Continue POC Treatment Plan/Plan of Care Patient would benefit from OT for education, treatment and training to promote independence in ADL's, mobility, safety and/or upper extremity function for ADL' s. Plan of Care: ADL Retraining, Functional Mobility, Group Exercise/Act as Ind ( education, exercise, activity tolerance, functional activities, socialization), UE Funct Exercise/Act, UE Neuromus Re-Ed/Coord, W/C Management Training Treatment Duration: Dec 01, 2016 Frequency: Twice Daily Estimated Hrs Per Day: 1.5 hours per day Agreement: Yes Rehab Potential: Fair Time/GCodes Start Time: 08:00 Stop Time: 09:00 Total Time Billed (hr/min): 60 Billed Treatment Time visit, 60 minutes ADL THAI HOOVER OT Nov 24, 2016 11:30
--- NOTE | 2016-11-24 14:29 | PM & R (SOAP) Progress Note ---
Subjective Time Seen by Provider: 09:15 Subjective/Events-last exam Patient was seen in his room this AM Patient gradually improving Patient mod assist for transfers Objective Exam Last Set of Vital Signs Vital Signs Date Time Temp Pulse Resp B/P (MAP) Pulse Ox O2 Delivery O2 Flow Rate FiO2 11/24/16 08:30 Room Air 11/24/16 08:20 98 131/84 11/24/16 04:14 97.5 16 97 Capillary Refill : I&O Intake and Output 11/24/16 00:00 Intake Total 2100 ml Balance 2100 ml Intake Oral 2100 ml # Voids 8 # Bowel Movements 2 General: Alert, Oriented X3, Cooperative, No Acute Distress HEENT: Atraumatic, PERRLA, EOMI, Mucous Memb Moist/[place] Neck: Supple, Other (inciasion healing well C Collar in place) Lungs: Clear to Auscultation Heart: Regular Rate Abdomen: Normal Bowel Sounds Extremities: Other (trace edema rt hand) Skin: Other (rt heel wrapped) Neuro: Other (2-3 strength rt UE Numbness rt hand) Results Lab Laboratory Tests 11/21/16 16:00: Glucometer 197H 11/21/16 20:19: Glucometer 149H 11/22/16 06:45: Glucometer 135H 11/22/16 10:57: Glucometer 131H 11/22/16 16:04: Glucometer 283H 11/22/16 20:23: Glucometer 165H 11/23/16 04:44: Glucometer 159H 11/23/16 06:55: Sodium Level 136, Potassium Level 4.0, Chloride Level 103, Carbon Dioxide Level 24, Anion Gap 9, Blood Urea Nitrogen 18, Creatinine 0.67, Estimat Glomerular Filtration Rate > 60, BUN/Creatinine Ratio 27, Glucose Level 144H, Calcium Level 9.1 11/23/16 11:30: Glucometer 114H 11/23/16 16:33: Glucometer 218H 11/23/16 22:06: Glucometer 154H 11/24/16 06:21: Glucometer 140H 11/24/16 11:07: Glucometer 122H Assessment/Plan Assessment Cervical spine spondylosis with myelopathy s/p decompression DR Atkinson affecting U Limbs more then Lower with strength gradually improving but 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 Dysphagia improved diet advanced- to regular consistency discussed with RN AMY on cpap HTN controlled DM with episode of hypoglycemia Dr juarez has adjusted insulin -improved HLP Intolerance to oxy-disturbed sleep Pressure sore rt heel-improving DJD Left Knee DJD left Hip S/P rt HIP relacement DR Cantu remote Trochanteric bursitis left hip s/p Injection DR Riley Plan Continue PT/OT/Pain management F/U with Hospitalist and DR Atkinson as per their schedule Trend Accucheks and adjust insulin as needed Pain management Changed meds-improved Wound care reconsult to check rt heel -see orders-done as per above Patient doing better with switch to hydrocodone for pain-less side effects report Discussed discharge options.with SW. Check Xray left hip-done Consult ortho re possible injection for pain control-done Next Team Conference tomorrow 11/25/16 JOSEY SALINAS MD Nov 24, 2016 14:29
--- NOTE | 2016-11-24 15:07 | Therapy Group Daily Note ---
Therapy Daily Group Note Patient Education Topic Home Safety Other/Notes Pt maneuvered motorized w/c to therapy gym for OT/PT group. OT/PT group consisted of introductions (name, place living, what you do to make things easier/safer at home), ARU weekly meeting description, and home safety education and discussion. Education on stair safety with FWW and/or rails then tripping hazards and solutions in living areas and bathroom. Pt contributed to discussions with accurate information. After group, pt sitting in w/c in room with call light/phone in reach. All needs met in room. Start Time: 13:00 Stop Time: 14:15 Total Billed Treatment Time: 75 Total Billed Treatment 1-GRP PREMA MEJIAS Nov 24, 2016 15:07
[2016-11-24] MEDS: DIAZEPAM 5 MG (VALIUM) TABLET PO PRN (18:14)
[2016-11-24 18:20] VITALS: BP 152/96
[2016-11-24] MEDS: IRBESARTAN 150 MG (AVAPRO) TAB PO SCH (20:52)
[2016-11-25] MEDS: HYDROcodone/APAP 10 MG/325 MG (LORTAB) TAB PO PRN ×5 (01:00→20:03)
[2016-11-25] MEDS: MULTIVIT W/MINERALS TAB (THERAGRAN M) PO SCH (05:32)
[2016-11-25] MEDS: metFORMIN 500 MG (GLUCOPHAGE) TAB PO SCH ×2 (05:32→16:00)
[2016-11-25 06:49] VITALS: BP 127/74
[2016-11-25] MEDS: inSUlin (REGULAR) HUMAN 1 UNIT/0.01 ML (CHARGE PER UNIT) SC SCH ×3 (07:22→15:50)
[2016-11-25] MEDS: HYDROCHLOROTHIAZIDE 25 MG (HCTZ) TAB PO SCH (08:50)
[2016-11-25] MEDS: SENNA W/DOCUSATE (SENOKOT S) TABLET PO SCH ×2 (08:50→20:04)
[2016-11-25] MEDS: amLODIPine 5 MG (NORVASC) TAB PO SCH (08:50)
[2016-11-25] MEDS: DIAZEPAM 5 MG (VALIUM) TABLET PO PRN ×2 (08:50→18:00)
[2016-11-25] MEDS: MENTHOL/ZINC OXIDE (CALMOSEPTINE) 113 GM TUBE TOP SCH ×2 (08:54→20:05)
[2016-11-25] MEDS: A & D OINT 60 GM TUBE TOP SCH (08:54)
[2016-11-25] MEDS: MICONAZOLE 2% POWDER (DESENEX AF) 90 GM TOP SCH ×2 (08:54→20:05)
[2016-11-25] MEDS: LACTULOSE SYRUP 10GM/15ML (ENULOSE) 30ML UDC PO SCH ×2 (08:54→20:03)
[2016-11-25] MEDS: POLYETHYLENE GLYCOL 17 GM (MIRALAX) PACK PO SCH ×2 (08:55→20:04)
--- NOTE | 2016-11-25 08:56 | PM & R (SOAP) Progress Note ---
Subjective Time Seen by Provider: 07:55 Subjective/Events-last exam Patient was seen in his room this AM Discussed case with RN Patient requesting Lidoderm patch for enhanced pain control see orders.Patient continue to make progress Patient now min assist for gait with platform waker with PT Objective Exam Last Set of Vital Signs Vital Signs Date Time Temp Pulse Resp B/P (MAP) Pulse Ox O2 Delivery O2 Flow Rate FiO2 11/25/16 06:49 99.3 72 20 127/74 94 11/24/16 21:00 Room Air Capillary Refill : I&O Intake and Output 11/25/16 00:00 Intake Total 2025 ml Balance 2025 ml Intake Oral 2025 ml # Voids 11 General: Alert, Oriented X3, Cooperative, No Acute Distress HEENT: Atraumatic, PERRLA, EOMI, Mucous Memb Moist/[place] Neck: Supple, Other (inciasion healing well C Collar in place) Lungs: Clear to Auscultation Heart: Regular Rate Abdomen: Normal Bowel Sounds Extremities: Other (trace edema rt hand) Skin: Other (rt heel wrapped) Neuro: Other (2-3 strength rt UE Numbness rt hand) Results Lab Laboratory Tests 11/22/16 10:57: Glucometer 131H 11/22/16 16:04: Glucometer 283H 11/22/16 20:23: Glucometer 165H 11/23/16 04:44: Glucometer 159H 11/23/16 06:55: Sodium Level 136, Potassium Level 4.0, Chloride Level 103, Carbon Dioxide Level 24, Anion Gap 9, Blood Urea Nitrogen 18, Creatinine 0.67, Estimat Glomerular Filtration Rate > 60, BUN/Creatinine Ratio 27, Glucose Level 144H, Calcium Level 9.1 11/23/16 11:30: Glucometer 114H 11/23/16 16:33: Glucometer 218H 11/23/16 22:06: Glucometer 154H 11/24/16 06:21: Glucometer 140H 11/24/16 11:07: Glucometer 122H 11/24/16 16:02: Glucometer 195H 11/24/16 20:02: Glucometer 112H 11/25/16 06:20: Glucometer 137H Assessment/Plan Assessment Cervical spine spondylosis with myelopathy s/p decompression DR Atkinson affecting U Limbs more then Lower with strength gradually improving but 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 Dysphagia improved diet advanced- to regular consistency discussed with RN AMY on cpap HTN controlled DM with episode of hypoglycemia Dr juarez has adjusted insulin -improved HLP Intolerance to oxy-disturbed sleep Pressure sore rt heel-improving DJD Left Knee DJD left Hip S/P rt HIP relacement DR Cantu remote Trochanteric bursitis left hip s/p Injection DR Riley Plan Continue PT/OT/Pain management F/U with Hospitalist and DR Atkinson as per their schedule Trend Accucheks and adjust insulin as needed Pain management Changed meds-improved Wound care reconsult to check rt heel -see orders-done as per above Patient doing better with switch to hydrocodone for pain-less side effects report Discussed discharge options.with SW. Check Xray left hip-done Consult ortho re possible injection for pain control-done Next Team Conference later today-See report for full functional update and POC and ELOS Pain management Trial of Lidoderm patch-See orders. JOSEY SALINAS MD Nov 25, 2016 08:55
--- NOTE | 2016-11-25 09:28 | Occupational Ther Daily Note ---
OT Current Status-Daily Note Subjective Pt seen in room, up in bed, agreeable to OT. No pain mentioned. Appearance Alert, cooperative Mental Status/Objective Functional [place] Measure 0=Not Assessed/NA 4=Minimal Assistance 1=Total Assistance 5=Supervision or Setup 2=Maximal Assistance 6=Modified [place] 3=Moderate Assistance 7=Complete [place] ADL-Treatment Pt was able to sit up and scoot to edge of bed with mod assist, head of bed elevated. Gel mattress makes transfer more difficult. Upper body dressing mod assist to get shirt off and put on clean one. Helped pull shirt down. With assist, pt scooted even closer to edge of bed and attempted to urinate, using urinal (he was able to hold it with L hand). Able to place feet in pants and help pull them up to thighs but not put socks/shoes on. Max assist. Pt stood mod assist, with bed elevated, using FWW with platforms, to urinate (needed help holding urinal) and pull pants up. Slow stand pivot transfer to R side to power chair, with mod assist, FWW. Pt propelled himself to accessible bathroom, opening door himself and positioning w/c at counter top. With setup, brushed teeth with universal cuff. Unable to brush hair or to hold on to hair brush. Cervical collar on. Functional [place] Measure 0=Not Assessed/NA 4=Minimal Assistance 1=Total Assistance 5=Supervision or Setup 2=Maximal Assistance 6=Modified [place] 3=Moderate Assistance 7=Complete IndependenceIRFPAI Quality Coding Scale 6 Independent with activity with or without an assistive device 5 Patient requires set up or clean up by helper. Patient completes activity by themselves 4 Supervision or touching assist (CGA). [place] provide cues , steadying assist 3 The helper provides less than half the effort to complete the activity 2 The helper provides more than half the effort to complete the activity 1 Dependent. The helper does all the effort to complete an activity 7 Patient refused to complete or attempt activity 9 The patient did not perform the activity before the current illness or injury 88 Not attempted due to Medical conditions or safety concerns Grooming (FIM): 4 (brush teeth setup, unable to do hair. Washed face and hands. 75%) Upper Body (FIM): 3 Lower Body Dressing (FIM): 2 Other Treatment In power chair, pt worked on reaching, grasping, placing and releasing cones, with both L and R hands. Can reach in multiple planes with L hand, table top with R hand. Cont with difficulty bending R index. pt left up in chair, all needs met. OT Short Term Goals Short Term Goals Time Frame: Nov 17, 2016 Eating(FIM): 4 Grooming(FIM): 3 Upper Body Dressing(FIM): 3 Lower Body Dressing(FIM): 3 Toileting(FIM): 3 Toilet/Commode Transfer(FIM): 3 Shower Transfer(FIM): 3 Additional Short Term Goals: 2-Verbalize Understanding, 3-ImproveStrength/Fady 1=Demonstrate adherence to instructed precautions during ADL tasks. 2=Patient will verbalize/demonstrate understanding of assistive devices/ modifications for ADL. 3=Patient will improve strength/tolerance for activity to enable patient to perform ADL's. OT Half-Way Goals Fruit Dumper Goals Time Frame: Dec 01, 2016 Eating (FIM): 5 Eating (QC): 5 Groomin Oral Hygiene (QC): 5 Bathing(FIM): 5 Shower/Bathe Self (QC): 5 Upper Body Dressing(FIM): 5 Upper Body Dressing (QC): 5 Lower Body Dressing(FIM): 5 Lower Body Dressing (QC): 5 On/Off Footwear (QC): 4 Toileting(FIM): 5 Toileting Hygiene (QC): 5 Toilet/Commode Transfer(FIM): 5 Toilet/Commode Transfer (QC): 5 Shower Transfer(FIM): 5 Additional Goals: 2-Verbalize Understanding, 3-ImproveStrength/Fady 1=Demonstrate adherence to instructed precautions during ADL tasks. 2=Patient will verbalize/demonstrate understanding of assistive devices/ modifications for ADL. 3=Patient will improve strength/tolerance for activity to enable patient to perform ADL's. OT Education/Plan Problem List/Assessment Pt would benefit from skilled OT to increase his independence in basic self care to allow him to safely return to his home to live alone and to decrease caregiver burden. Discharge Recommendations Plan/Recommendations: Continue POC Treatment Plan/Plan of Care Patient would benefit from OT for education, treatment and training to promote independence in ADL's, mobility, safety and/or upper extremity function for ADL' s. Plan of Care: ADL Retraining, Functional Mobility, Group Exercise/Act as Ind ( education, exercise, activity tolerance, functional activities, socialization), UE Funct Exercise/Act, UE Neuromus Re-Ed/Coord, W/C Management Training Treatment Duration: Dec 01, 2016 Frequency: Twice Daily Estimated Hrs Per Day: 1.5 hours per day Agreement: Yes Rehab Potential: Fair Time/GCodes Start Time: 08:00 Stop Time: 09:00 Total Time Billed (hr/min): 60 Billed Treatment Time visit, 50 minutes ADL, 10 minutes neuromotor THAI HOOVER OT Nov 25, 2016 09:28
--- NOTE | 2016-11-25 09:58 | Physical Therapy Daily Note ---
PT Daily Note-Current Subjective Patient in power chair pre tx, agrees to PT, has pain of 6/10 in right shoulder and 8/10 in left hip. Appearance Patient in power chair post tx, he is mod I with wheelchair mobility Mental Status Patient Orientation: Normal For Age cervical collar Transfers Functional [place] Measure 0=Not Assessed/NA 4=Minimal Assistance 1=Total Assistance 5=Supervision or Setup 2=Maximal Assistance 6=Modified [place] 3=Moderate Assistance 7=Complete IndependenceIRFPAI Quality Coding Scale 6 Independent with activity with or without an assistive device 5 Patient requires set up or clean up by helper. Patient completes activity by themselves 4 Supervision or touching assist (CGA). [place] provide cues , steadying assist 3 The helper provides less than half the effort to complete the activity 2 The helper provides more than half the effort to complete the activity 1 Dependent. The helper does all the effort to complete an activity 7 Patient refused to complete or attempt activity 9 The patient did not perform the activity before the current illness or injury 88 Not attempted due to Medical conditions or safety concerns Transfers (B, C, W/C) (FIM): 3 Scootin Rollin Supine to/from Sit: 2 Sit to/from Stand: 3 Bed to/from Chair: 3 Patient still needs max assist for supine to sit, sit to stand is mod A but he can perform it with min A from higher surfaces, stand pivot transfer is mod A but again he has been able to perform it with min assist from higher surfaces and going to the left side Gait Training Gait (FIM): 2 Distance: 120' Gait Level of Assist: 4 Gait Persons Needed: 1 bilateral platform walker Treatments ambulation, transfer training (practiced stand pivot transfers going to the left ), patient also had interferential estim to the left hip along with a MHP for 15 min Assessment Current Status: Fair Progress slowly improving mobility, transfers, ambulation PT Short Term Goals Short Term Goals Time Frame: Nov 10, 2016 Gait (FIM): 1 Gait Distance Comment: 10' Gait Level of Assist: 2 Gait Assistive Device: FWW, Walker Platform Wheelchair Distance: 150'x2 PT Fdc Goals Fdc Goals PT Trimmer And Borer Machine Operator Goals Time Frame: Nov 24, 2016 Transfers (B,C,W/C) (FIM): 4 Sit to Lying (QC): 3 Lying-Sitting on Side/Bed(QC): 3 Sit to Stand (QC): 3 Rollin Roll Left to Right (QC): 3 Chair/Bqx-ku-Utmls Xfer(QC): 3 Gait (FIM): 1 Distance: 20' Walk 10 feet (QC): 2 Gait Level of Assist: 2 Gait Assistive Device: FWW, Walker Platform Wheelchair (FIM): 6 Distance: 500' Wheelchair Level of Assist: 6 Wheel 50 feet with 2 turns (QC: 6 PT Plan Problem List Problem List: Activity Tolerance, Functional Strength, Safety, Balance, Gait, Transfer, Bed Mobility, ROM Treatment/Plan Treatment Plan: Continue Plan of Care Treatment Plan: Bed Mobility, Education, Functional Activity Fady, Functional Strength, Group Therapy, Gait, Safety, Therapeutic Exercise, Transfers Treatment Duration: Nov 24, 2016 Frequency: At least 5-7 days/Wk (IRF) Estimated Hrs Per Day: 2 hours per day Patient and/or Family Agrees t: Yes Safety Risks/Education Patient Education: Gait Training, Transfer Techniques, Correct Positioning, Safety Issues Teaching Recipient: Patient Teaching Methods: Demonstration, Discussion Response to Teaching: Reinforcement Needed Time/GCodes Time In: 900 Time Out: 1000 Total Billed Treatment Time: 60 Total Billed Treatment 1 visit ES 15' FA 25' GT 20' CATALINA RUBI PT Nov 25, 2016 09:58
[2016-11-25] MEDS: LIDOCAINE (LIDODERM) 5% PATCH TOP SCH (10:39)
--- NOTE | 2016-11-25 13:31 | Physical Therapy Daily Note ---
PT Daily Note-Current Subjective Patient in bed pre tx, agrees to PT, has pain of 6/10 in right shoulder and left hip. Appearance Patient in power chair post tx, in his room, he has OT not long after PT. Mental Status Patient Orientation: Normal For Age cervical collar Transfers Functional [place] Measure 0=Not Assessed/NA 4=Minimal Assistance 1=Total Assistance 5=Supervision or Setup 2=Maximal Assistance 6=Modified [place] 3=Moderate Assistance 7=Complete IndependenceIRFPAI Quality Coding Scale 6 Independent with activity with or without an assistive device 5 Patient requires set up or clean up by helper. Patient completes activity by themselves 4 Supervision or touching assist (CGA). [place] provide cues , steadying assist 3 The helper provides less than half the effort to complete the activity 2 The helper provides more than half the effort to complete the activity 1 Dependent. The helper does all the effort to complete an activity 7 Patient refused to complete or attempt activity 9 The patient did not perform the activity before the current illness or injury 88 Not attempted due to Medical conditions or safety concerns Transfers (B, C, W/C) (FIM): 3 Scootin Rollin Supine to/from Sit: 3 Sit to/from Stand: 3 Bed to/from Chair: 3 Exercises LAQ alternating for 5 min with 2# ankle weights, manually resisted leg press in wheelchair 3 sets of 10 Treatments bed mobility and transfers, functional strengthening Assessment Current Status: Fair Progress improving strength PT Short Term Goals Short Term Goals Time Frame: Nov 10, 2016 Gait (FIM): 1 Gait Distance Comment: 10' Gait Level of Assist: 2 Gait Assistive Device: FWW, Walker Platform Wheelchair Distance: 150'x2 PT Electrician Radio Goals Mcfp Goals PT Mcfp Goals Time Frame: Nov 24, 2016 Transfers (B,C,W/C) (FIM): 4 Sit to Lying (QC): 3 Lying-Sitting on Side/Bed(QC): 3 Sit to Stand (QC): 3 Rollin Roll Left to Right (QC): 3 Chair/Tuy-ib-Frltf Xfer(QC): 3 Gait (FIM): 1 Distance: 20' Walk 10 feet (QC): 2 Gait Level of Assist: 2 Gait Assistive Device: FWW, Walker Platform Wheelchair (FIM): 6 Distance: 500' Wheelchair Level of Assist: 6 Wheel 50 feet with 2 turns (QC: 6 PT Plan Problem List Problem List: Activity Tolerance, Functional Strength, Safety, Balance, Gait, Transfer, Bed Mobility, ROM Treatment/Plan Treatment Plan: Continue Plan of Care Treatment Plan: Bed Mobility, Education, Functional Activity Fady, Functional Strength, Group Therapy, Gait, Safety, Therapeutic Exercise, Transfers Treatment Duration: Nov 24, 2016 Frequency: At least 5-7 days/Wk (IRF) Estimated Hrs Per Day: 2 hours per day Patient and/or Family Agrees t: Yes Safety Risks/Education Patient Education: Transfer Techniques, Correct Positioning, Safety Issues Teaching Recipient: Patient Teaching Methods: Demonstration, Discussion Response to Teaching: Reinforcement Needed Time/GCodes Time In: 1300 Time Out: 1330 Total Billed Treatment Time: 30 Total Billed Treatment 1 visit FA 10' EX 20' CATALINA RUBI PT Nov 25, 2016 13:31
--- NOTE | 2016-11-25 15:13 | Occupational Ther Daily Note ---
OT Current Status-Daily Note Subjective Pt seen in room, up in chair, agreeable to OT. Appearance Alert, cooperative Mental Status/Objective Functional [place] Measure 0=Not Assessed/NA 4=Minimal Assistance 1=Total Assistance 5=Supervision or Setup 2=Maximal Assistance 6=Modified [place] 3=Moderate Assistance 7=Complete [place] ADL-Treatment Functional [place] Measure 0=Not Assessed/NA 4=Minimal Assistance 1=Total Assistance 5=Supervision or Setup 2=Maximal Assistance 6=Modified [place] 3=Moderate Assistance 7=Complete IndependenceIRFPAI Quality Coding Scale 6 Independent with activity with or without an assistive device 5 Patient requires set up or clean up by helper. Patient completes activity by themselves 4 Supervision or touching assist (CGA). [place] provide cues , steadying assist 3 The helper provides less than half the effort to complete the activity 2 The helper provides more than half the effort to complete the activity 1 Dependent. The helper does all the effort to complete an activity 7 Patient refused to complete or attempt activity 9 The patient did not perform the activity before the current illness or injury 88 Not attempted due to Medical conditions or safety concerns Other Treatment Instrumentation And Control Technician and pinch strength measurements taken: Instrumentation And Control Technician: L 4, 4, 5 lb (second position on dynamometer) an increase of 2 pounds from previous measurements R trace, trace trace (second position on dynamometer) R 4, 4, 5 lb (space widened to fourth position on dynamometer) Grasp on R hand is limited by decreased joint range and inability to make a complete fist Pinch: L R lateral 1# .5# 3 jaw sara .5# unable tip .5# unable This is vp [employer] and pinch strength from 11-04-16 Instrumentation And Control Technician: L 2,2,3 lb R trace, trace, trace Lateral pinch L 1# R unable Unable to do 3 jaw or tip pinch with either hand This is vp [employer] and pinch strength from 10-21-16: Instrumentation And Control Technician strength: L 13, 14, 15 lb (average 14 lb) R 5, 5, 4 lb (average 4.7 lb) Pinch L R lateral 9 3 # jaw sara 2 2 Tip 2 2 Also did standardized coordination assessment today: Box and Blocks: L 16 blocks in 1 minute R unable to mushroom picker block Normal is around 60 blocks per minute. It is encouraging that he is able to grasp and mushroom picker blocks with L hand. May benefit from paraffin bath to R hand to increase AROM. Pt took himself back to room. OT Short Term Goals Short Term Goals Time Frame: Nov 17, 2016 Eating(FIM): 4 Grooming(FIM): 3 Upper Body Dressing(FIM): 3 Lower Body Dressing(FIM): 3 Toileting(FIM): 3 Toilet/Commode Transfer(FIM): 3 Shower Transfer(FIM): 3 Additional Short Term Goals: 2-Verbalize Understanding, 3-ImproveStrength/Fady 1=Demonstrate adherence to instructed precautions during ADL tasks. 2=Patient will verbalize/demonstrate understanding of assistive devices/ modifications for ADL. 3=Patient will improve strength/tolerance for activity to enable patient to perform ADL's. OT Assisted Goals Assisted Goals Time Frame: Dec 01, 2016 Eating (FIM): 5 Eating (QC): 5 Groomin Oral Hygiene (QC): 5 Bathing(FIM): 5 Shower/Bathe Self (QC): 5 Upper Body Dressing(FIM): 5 Upper Body Dressing (QC): 5 Lower Body Dressing(FIM): 5 Lower Body Dressing (QC): 5 On/Off Footwear (QC): 4 Toileting(FIM): 5 Toileting Hygiene (QC): 5 Toilet/Commode Transfer(FIM): 5 Toilet/Commode Transfer (QC): 5 Shower Transfer(FIM): 5 Additional Goals: 2-Verbalize Understanding, 3-ImproveStrength/Fady 1=Demonstrate adherence to instructed precautions during ADL tasks. 2=Patient will verbalize/demonstrate understanding of assistive devices/ modifications for ADL. 3=Patient will improve strength/tolerance for activity to enable patient to perform ADL's. OT Education/Plan Problem List/Assessment Pt would benefit from skilled OT to increase his independence in basic self care to allow him to safely return to his home to live alone and to decrease caregiver burden. Discharge Recommendations Plan/Recommendations: Continue POC Treatment Plan/Plan of Care Patient would benefit from OT for education, treatment and training to promote independence in ADL's, mobility, safety and/or upper extremity function for ADL' s. Plan of Care: ADL Retraining, Functional Mobility, Group Exercise/Act as Ind ( education, exercise, activity tolerance, functional activities, socialization), UE Funct Exercise/Act, UE Neuromus Re-Ed/Coord, W/C Management Training Treatment Duration: Dec 01, 2016 Frequency: Twice Daily Estimated Hrs Per Day: 1.5 hours per day Agreement: Yes Rehab Potential: Fair Time/GCodes Start Time: 14:10 Stop Time: 14:40 Total Time Billed (hr/min): 30 Billed Treatment Time visit, 30 minutes neuromotor THAI HOOVER OT Nov 25, 2016 15:13
[2016-11-25 17:52] VITALS: BP_SYST 117; BP_SYST 127; BP_DIAS 69
[2016-11-25] MEDS: IRBESARTAN 150 MG (AVAPRO) TAB PO SCH (20:03)
[2016-11-26] MEDS: HYDROcodone/APAP 10 MG/325 MG (LORTAB) TAB PO PRN ×6 (00:24→23:09)
[2016-11-26 06:08] VITALS: BP 127/85
[2016-11-26] MEDS: metFORMIN 500 MG (GLUCOPHAGE) TAB PO SCH ×2 (07:19→17:57)
[2016-11-26] MEDS: MULTIVIT W/MINERALS TAB (THERAGRAN M) PO SCH (07:19)
[2016-11-26] MEDS: inSUlin (REGULAR) HUMAN 1 UNIT/0.01 ML (CHARGE PER UNIT) SC SCH ×3 (08:30→17:57)
[2016-11-26] MEDS: amLODIPine 5 MG (NORVASC) TAB PO SCH (08:30)
[2016-11-26] MEDS: HYDROCHLOROTHIAZIDE 25 MG (HCTZ) TAB PO SCH (08:30)
[2016-11-26] MEDS: SENNA W/DOCUSATE (SENOKOT S) TABLET PO SCH ×2 (08:30→20:01)
[2016-11-26] MEDS: LIDOCAINE (LIDODERM) 5% PATCH TOP SCH ×2 (08:31→14:50)
[2016-11-26] MEDS: POLYETHYLENE GLYCOL 17 GM (MIRALAX) PACK PO SCH ×2 (08:31→20:02)
[2016-11-26] MEDS: A & D OINT 60 GM TUBE TOP SCH (08:31)
[2016-11-26] MEDS: MENTHOL/ZINC OXIDE (CALMOSEPTINE) 113 GM TUBE TOP SCH ×2 (08:31→20:01)
[2016-11-26] MEDS: MICONAZOLE 2% POWDER (DESENEX AF) 90 GM TOP SCH ×2 (08:31→20:02)
[2016-11-26] MEDS: LACTULOSE SYRUP 10GM/15ML (ENULOSE) 30ML UDC PO SCH ×2 (08:31→20:02)
--- NOTE | 2016-11-26 08:53 | PM & R (SOAP) Progress Note ---
Subjective Time Seen by Provider: 08:15 Subjective/Events-last exam Patient was seen in his room this AM Patient Mod assist for transfers Patient requested trial of lidoderm patch yesterday for enhanced pain relief Patient feels that it may be helping .Will monitor. Objective Exam Last Set of Vital Signs Vital Signs Date Time Temp Pulse Resp B/P (MAP) Pulse Ox O2 Delivery O2 Flow Rate FiO2 11/26/16 08:45 Room Air 11/26/16 06:08 98.9 82 18 127/85 98 Capillary Refill : I&O Intake and Output 11/26/16 00:00 Intake Total 1450 ml Output Total 1000 ml Balance 450 ml Intake Oral 1450 ml Output Urine Total 1000 ml # Voids 3 General: Alert, Oriented X3, Cooperative, No Acute Distress HEENT: Atraumatic, PERRLA, EOMI, Mucous Memb Moist/[place] Neck: Supple, Other (inciasion healing well C Collar in place) Lungs: Clear to Auscultation Heart: Regular Rate Abdomen: Normal Bowel Sounds Extremities: Other (trace edema rt hand) Skin: Other (rt heel wrapped) Neuro: Other (2-3 strength rt UE Numbness rt hand) Results Lab Laboratory Tests 11/23/16 11:30: Glucometer 114H 11/23/16 16:33: Glucometer 218H 11/23/16 22:06: Glucometer 154H 11/24/16 06:21: Glucometer 140H 11/24/16 11:07: Glucometer 122H 11/24/16 16:02: Glucometer 195H 11/24/16 20:02: Glucometer 112H 11/25/16 06:20: Glucometer 137H 11/25/16 16:27: Glucometer 183H 11/26/16 05:13: Glucometer 141H Assessment/Plan Assessment Cervical spine spondylosis with myelopathy s/p decompression DR Atkinson affecting U Limbs more then Lower with strength gradually improving but remaining with impaired boilermaker fitter strength affecting ADL skills Dysphagia improved diet advanced- to regular consistency discussed with RN AMY on cpap HTN controlled DM with episode of hypoglycemia Dr juarez has adjusted insulin -improved HLP Intolerance to oxy-disturbed sleep Pressure sore rt heel-improving DJD Left Knee DJD left Hip S/P rt HIP relacement DR Cantu remote Trochanteric bursitis left hip s/p Injection DR Riley Plan Continue PT/OT/Pain management F/U with Hospitalist and DR Atkinson as per their schedule Trend Accucheks and adjust insulin as needed Pain management Changed meds-improved Wound care reconsult to check rt heel -see orders-done as per above Patient doing better with switch to hydrocodone for pain-less side effects report Discussed discharge options.with SW. Check Xray left hip-done Consult ortho re possible injection for pain control-done Team Conference held yesterday--See report for full functional update and POC and ELOS Pain management Trial of Lidoderm patch-in progress. JOSEY SALINAS MD Nov 26, 2016 08:53
--- NOTE | 2016-11-26 11:37 | Occupational Ther Daily Note ---
OT Current Status-Daily Note Subjective Pt seen in room, up in power chair, agreeable to OT. No pain mentioned initially but pt reported some discomfort with stretching tight muscles Appearance Alert, cooperative Mental Status/Objective Functional [place] Measure 0=Not Assessed/NA 4=Minimal Assistance 1=Total Assistance 5=Supervision or Setup 2=Maximal Assistance 6=Modified [place] 3=Moderate Assistance 7=Complete [place] ADL-Treatment Functional [place] Measure 0=Not Assessed/NA 4=Minimal Assistance 1=Total Assistance 5=Supervision or Setup 2=Maximal Assistance 6=Modified [place] 3=Moderate Assistance 7=Complete IndependenceIRFPAI Quality Coding Scale 6 Independent with activity with or without an assistive device 5 Patient requires set up or clean up by helper. Patient completes activity by themselves 4 Supervision or touching assist (CGA). [place] provide cues , steadying assist 3 The helper provides less than half the effort to complete the activity 2 The helper provides more than half the effort to complete the activity 1 Dependent. The helper does all the effort to complete an activity 7 Patient refused to complete or attempt activity 9 The patient did not perform the activity before the current illness or injury 88 Not attempted due to Medical conditions or safety concerns Other Treatment Pt took himself to the gym per power chair. Pt education on use of paraffin bath for R hand to increase movement and decrease discomfort, went over precautions. Distance to distal palmar crease in inches: Before After R index 3.5 1.5 R middle 2.5 1 R ring 2 .5 R little finger 2 .5 After paraffin, skilled facilitation techniques used, working on AROM and PROM, strength including intrinsics. Distance measurements taken after all techniques. Also did skilled facilitation techniques to L UE, focusing on coordination wrist and finger movements together for increased functional use of L UE. Pt educ use of gentle stretch to increase extension L elbow and able to increase it from -30 to about -10 degrees. Pt encouraged to do stretches on his own when in bed, since he doesn't get normal elbow extension when he walks ( he's using platform walker). pt seemed pleased with progress and said the discomfort in his fingers was less. He was encouraged to continue to work on R hand finger and thumb movements. Pt took himself back to his room. Education OT Patient Education: Purpose of tx/functional activities, Other Teaching Recipient: Patient Teaching Methods: Discussion Response to Teaching: Verbalize Understanding OT Short Term Goals Short Term Goals Time Frame: Nov 17, 2016 Eating(FIM): 4 Grooming(FIM): 3 Upper Body Dressing(FIM): 3 Lower Body Dressing(FIM): 3 Toileting(FIM): 3 Toilet/Commode Transfer(FIM): 3 Shower Transfer(FIM): 3 Additional Short Term Goals: 2-Verbalize Understanding, 3-ImproveStrength/Fady 1=Demonstrate adherence to instructed precautions during ADL tasks. 2=Patient will verbalize/demonstrate understanding of assistive devices/ modifications for ADL. 3=Patient will improve strength/tolerance for activity to enable patient to perform ADL's. OT Shelter Goals Lacquer Polisher Goals Time Frame: Dec 01, 2016 Eating (FIM): 5 Eating (QC): 5 Groomin Oral Hygiene (QC): 5 Bathing(FIM): 5 Shower/Bathe Self (QC): 5 Upper Body Dressing(FIM): 5 Upper Body Dressing (QC): 5 Lower Body Dressing(FIM): 5 Lower Body Dressing (QC): 5 On/Off Footwear (QC): 4 Toileting(FIM): 5 Toileting Hygiene (QC): 5 Toilet/Commode Transfer(FIM): 5 Toilet/Commode Transfer (QC): 5 Shower Transfer(FIM): 5 Additional Goals: 2-Verbalize Understanding, 3-ImproveStrength/Fady 1=Demonstrate adherence to instructed precautions during ADL tasks. 2=Patient will verbalize/demonstrate understanding of assistive devices/ modifications for ADL. 3=Patient will improve strength/tolerance for activity to enable patient to perform ADL's. OT Education/Plan Problem List/Assessment Pt would benefit from skilled OT to increase his independence in basic self care to allow him to safely return to his home to live alone and to decrease caregiver burden. Discharge Recommendations Plan/Recommendations: Continue POC Treatment Plan/Plan of Care Patient would benefit from OT for education, treatment and training to promote independence in ADL's, mobility, safety and/or upper extremity function for ADL' s. Plan of Care: ADL Retraining, Functional Mobility, Group Exercise/Act as Ind ( education, exercise, activity tolerance, functional activities, socialization), UE Funct Exercise/Act, UE Neuromus Re-Ed/Coord, W/C Management Training Treatment Duration: Dec 01, 2016 Frequency: Twice Daily Estimated Hrs Per Day: 1.5 hours per day Agreement: Yes Rehab Potential: Fair Time/GCodes Start Time: 09:00 Stop Time: 10:00 Total Time Billed (hr/min): 60 Billed Treatment Time visit, neuromotor 60 minutes, paraffin THAI Holloway OT Nov 26, 2016 11:37
--- NOTE | 2016-11-26 11:59 | Physical Therapy Daily Note ---
PT Daily Note-Current Subjective Patient in bed pre tx, agrees to PT, patient has gotten a new/used power chair and it needs a significant amount of adjusting in order to fit him properly. He also has a gel cushion to go with it and a correctional supervisor. Appearance Patient in power chair post tx, he is mod I with power chair mobility. Mental Status Patient Orientation: Normal For Age cervical collar Transfers Functional [place] Measure 0=Not Assessed/NA 4=Minimal Assistance 1=Total Assistance 5=Supervision or Setup 2=Maximal Assistance 6=Modified [place] 3=Moderate Assistance 7=Complete IndependenceIRFPAI Quality Coding Scale 6 Independent with activity with or without an assistive device 5 Patient requires set up or clean up by helper. Patient completes activity by themselves 4 Supervision or touching assist (CGA). [place] provide cues , steadying assist 3 The helper provides less than half the effort to complete the activity 2 The helper provides more than half the effort to complete the activity 1 Dependent. The helper does all the effort to complete an activity 7 Patient refused to complete or attempt activity 9 The patient did not perform the activity before the current illness or injury 88 Not attempted due to Medical conditions or safety concerns Transfers (B, C, W/C) (FIM): 3 Scootin Rollin Supine to/from Sit: 5 Sit to/from Stand: 3 Bed to/from Chair: 3 Patient is able to perform bed mobility and supine to sit with SBA if he has a hospital bed and elevates the head. Wheelchair Training Does the Pt Use a Wheelchair?: Yes Wheelchair (FIM): 6 Distance: 150'x2 Type of Wheelchair: Motorized Patient has a used power chair that social work was able to obtain for him. It has power tilt, seat raising, and leg elevation. It also has a headrest and came with a gel cushion. It needed significant adjustment on the position of the controller, leg rests, and headrest. After adjusting he was able to propel it comfortably with mod I. It still needs some adjusting on the controller. Treatments transfers, wheelchair mobility and adjusting Assessment Current Status: Fair Progress PT Short Term Goals Short Term Goals Time Frame: Nov 10, 2016 Gait (FIM): 1 Gait Distance Comment: 10' Gait Level of Assist: 2 Gait Assistive Device: FWW, Walker Platform Wheelchair Distance: 150'x2 PT Longterm Goals Longterm Goals PT Longterm Goals Time Frame: Nov 24, 2016 Transfers (B,C,W/C) (FIM): 4 Sit to Lying (QC): 3 Lying-Sitting on Side/Bed(QC): 3 Sit to Stand (QC): 3 Rollin Roll Left to Right (QC): 3 Chair/Noz-qx-Psnoq Xfer(QC): 3 Gait (FIM): 1 Distance: 20' Walk 10 feet (QC): 2 Gait Level of Assist: 2 Gait Assistive Device: FWW, Walker Platform Wheelchair (FIM): 6 Distance: 500' Wheelchair Level of Assist: 6 Wheel 50 feet with 2 turns (QC: 6 PT Plan Problem List Problem List: Activity Tolerance, Safety, Balance, Gait, Transfer, Bed Mobility , ROM Treatment/Plan Treatment Plan: Continue Plan of Care Treatment Plan: Bed Mobility, Education, Functional Activity Fady, Functional Strength, Group Therapy, Gait, Safety, Therapeutic Exercise, Transfers Treatment Duration: Nov 24, 2016 Frequency: At least 5-7 days/Wk (IRF) Estimated Hrs Per Day: 2 hours per day Patient and/or Family Agrees t: Yes Safety Risks/Education Patient Education: Transfer Techniques, Correct Positioning, W/C Management, Safety Issues Teaching Recipient: Patient Teaching Methods: Demonstration, Discussion Response to Teaching: Reinforcement Needed Time/GCodes Time In: 1100 Time Out: 1200 Total Billed Treatment Time: 60 Total Billed Treatment 1 visit FA 10' [facility] 50' CATALINA RUBI PT Nov 26, 2016 11:59
--- NOTE | 2016-11-26 13:12 | Physical Therapy Daily Note ---
PT Daily Note-Current Subjective Agreeable to PT. Transfers Functional [place] Measure 0=Not Assessed/NA 4=Minimal Assistance 1=Total Assistance 5=Supervision or Setup 2=Maximal Assistance 6=Modified [place] 3=Moderate Assistance 7=Complete IndependenceIRFPAI Quality Coding Scale 6 Independent with activity with or without an assistive device 5 Patient requires set up or clean up by helper. Patient completes activity by themselves 4 Supervision or touching assist (CGA). [place] provide cues , steadying assist 3 The helper provides less than half the effort to complete the activity 2 The helper provides more than half the effort to complete the activity 1 Dependent. The helper does all the effort to complete an activity 7 Patient refused to complete or attempt activity 9 The patient did not perform the activity before the current illness or injury 88 Not attempted due to Medical conditions or safety concerns Treatments Worked on continued adjustments of his power chair. Unable to further tilt his hand control and need a lever to release the footrest on the rigtht. Sit to stand with min assist and max assist to strap his arms on the platforms of the walker. Gait x 40 ft with FWW B platforms with close CGA. Audible crepitus noted left hip. Assessment Current Status: Good Progress Progressing with transfers and gait. PT Short Term Goals Short Term Goals Time Frame: Nov 10, 2016 Gait (FIM): 1 Gait Distance Comment: 10' Gait Level of Assist: 2 Gait Assistive Device: FWW, Walker Platform Wheelchair Distance: 150'x2 PT Care Home Goals Agricultural Mechanic Goals PT Care Home Goals Time Frame: Nov 24, 2016 Transfers (B,C,W/C) (FIM): 4 Sit to Lying (QC): 3 Lying-Sitting on Side/Bed(QC): 3 Sit to Stand (QC): 3 Rollin Roll Left to Right (QC): 3 Chair/Glw-ss-Sjdbo Xfer(QC): 3 Gait (FIM): 1 Distance: 20' Walk 10 feet (QC): 2 Gait Level of Assist: 2 Gait Assistive Device: FWW, Walker Platform Wheelchair (FIM): 6 Distance: 500' Wheelchair Level of Assist: 6 Wheel 50 feet with 2 turns (QC: 6 PT Plan Problem List Problem List: Activity Tolerance, Functional Strength, Safety, Balance, Gait, Transfer, Bed Mobility Treatment/Plan Treatment Plan: Continue Plan of Care Treatment Plan: Bed Mobility, Education, Functional Activity Fady, Functional Strength, Group Therapy, Gait, Safety, Therapeutic Exercise, Transfers Treatment Duration: Nov 24, 2016 Frequency: At least 5-7 days/Wk (IRF) Estimated Hrs Per Day: 2 hours per day Patient and/or Family Agrees t: Yes Safety Risks/Education Patient Education: Safety Issues Teaching Recipient: Patient Teaching Methods: Discussion Response to Teaching: Verbalize Understanding Time/GCodes Time In: 1245 Time Out: 1315 Total Billed Treatment Time: 30 Total Billed Treatment visit FA 30 PREMA JURADO PT Nov 26, 2016 13:12
--- NOTE | 2016-11-26 14:15 | Occupational Ther Daily Note ---
OT Current Status-Daily Note Subjective Pt seen in gym, up in power chair, agreeable to OT. Said he had less discomfort in L elbow after stretching this am Appearance Alert, cooperative Mental Status/Objective Functional [place] Measure 0=Not Assessed/NA 4=Minimal Assistance 1=Total Assistance 5=Supervision or Setup 2=Maximal Assistance 6=Modified [place] 3=Moderate Assistance 7=Complete [place] ADL-Treatment Pt bed changed to one with thicker mattress - pt reported that he didn't think it made much difference as far as being able to urinate sitting EOB. BSC changed to one with flat seat (like he had) but about 3 inches taller - he said that worked better and his feet still hit the floor. It is a better height for toilet transfers, especially since he is tall. Functional [place] Measure 0=Not Assessed/NA 4=Minimal Assistance 1=Total Assistance 5=Supervision or Setup 2=Maximal Assistance 6=Modified [place] 3=Moderate Assistance 7=Complete IndependenceIRFPAI Quality Coding Scale 6 Independent with activity with or without an assistive device 5 Patient requires set up or clean up by helper. Patient completes activity by themselves 4 Supervision or touching assist (CGA). [place] provide cues , steadying assist 3 The helper provides less than half the effort to complete the activity 2 The helper provides more than half the effort to complete the activity 1 Dependent. The helper does all the effort to complete an activity 7 Patient refused to complete or attempt activity 9 The patient did not perform the activity before the current illness or injury 88 Not attempted due to Medical conditions or safety concerns Other Treatment paraffin dip to R hand. He had lost some of the active range from this morning but, when hand came out of paraffin, he regained it fairly quickly due to the benefits of the paraffin. He was almost able to touch distal palmar crease with middle, ring and little fingers on R hand after skilled facilitation techniques. Techniques also used to work on active shoulder flexion (he tends to move in abduction) and elbow extension (moved from -30 degrees to about -10 degrees. Also reported less tenderness in L elbow crease area. Pt took himself back to his room, up in power chair. He is assertive in managing his care and able to ask for help as needed. Education OT Patient Education: Progress toward Goal/Update tx plan, Purpose of tx/ functional activities Teaching Recipient: Patient Teaching Methods: Demonstration, Discussion Response to Teaching: Verbalize Understanding, Return Demonstration OT Short Term Goals Short Term Goals Time Frame: Nov 17, 2016 Eating(FIM): 4 Grooming(FIM): 3 Upper Body Dressing(FIM): 3 Lower Body Dressing(FIM): 3 Toileting(FIM): 3 Toilet/Commode Transfer(FIM): 3 Shower Transfer(FIM): 3 Additional Short Term Goals: 2-Verbalize Understanding, 3-ImproveStrength/Fady 1=Demonstrate adherence to instructed precautions during ADL tasks. 2=Patient will verbalize/demonstrate understanding of assistive devices/ modifications for ADL. 3=Patient will improve strength/tolerance for activity to enable patient to perform ADL's. OT Intermediate Goals Intermediate Goals Time Frame: Dec 01, 2016 Eating (FIM): 5 Eating (QC): 5 Groomin Oral Hygiene (QC): 5 Bathing(FIM): 5 Shower/Bathe Self (QC): 5 Upper Body Dressing(FIM): 5 Upper Body Dressing (QC): 5 Lower Body Dressing(FIM): 5 Lower Body Dressing (QC): 5 On/Off Footwear (QC): 4 Toileting(FIM): 5 Toileting Hygiene (QC): 5 Toilet/Commode Transfer(FIM): 5 Toilet/Commode Transfer (QC): 5 Shower Transfer(FIM): 5 Additional Goals: 2-Verbalize Understanding, 3-ImproveStrength/Fady 1=Demonstrate adherence to instructed precautions during ADL tasks. 2=Patient will verbalize/demonstrate understanding of assistive devices/ modifications for ADL. 3=Patient will improve strength/tolerance for activity to enable patient to perform ADL's. OT Education/Plan Problem List/Assessment Pt would benefit from skilled OT to increase his independence in basic self care to allow him to safely return to his home to live alone and to decrease caregiver burden. Discharge Recommendations Plan/Recommendations: Continue POC Treatment Plan/Plan of Care Patient would benefit from OT for education, treatment and training to promote independence in ADL's, mobility, safety and/or upper extremity function for ADL' s. Plan of Care: ADL Retraining, Functional Mobility, Group Exercise/Act as Ind ( education, exercise, activity tolerance, functional activities, socialization), UE Funct Exercise/Act, UE Neuromus Re-Ed/Coord, W/C Management Training Treatment Duration: Dec 01, 2016 Frequency: Twice Daily Estimated Hrs Per Day: 1.5 hours per day Agreement: Yes Rehab Potential: Fair Time/GCodes Start Time: 13:30 Stop Time: 14:00 Total Time Billed (hr/min): 30 Billed Treatment Time visit, 30 minutes neuromotor, paraffin bath THAI HOOVER OT Nov 26, 2016 14:15
[2016-11-26] MEDS: DIAZEPAM 5 MG (VALIUM) TABLET PO PRN (14:44)
[2016-11-26 17:27] VITALS: BP 133/87
[2016-11-26] MEDS: IRBESARTAN 150 MG (AVAPRO) TAB PO SCH (20:01)
[2016-11-27] MEDS: HYDROcodone/APAP 10 MG/325 MG (LORTAB) TAB PO PRN ×5 (03:10→20:26)
[2016-11-27 04:12] VITALS: BP 125/83
[2016-11-27] MEDS: metFORMIN 500 MG (GLUCOPHAGE) TAB PO SCH ×2 (07:40→16:29)
[2016-11-27] MEDS: MULTIVIT W/MINERALS TAB (THERAGRAN M) PO SCH (07:40)
[2016-11-27] MEDS: inSUlin (REGULAR) HUMAN 1 UNIT/0.01 ML (CHARGE PER UNIT) SC SCH ×3 (07:41→18:52)
[2016-11-27] MEDS: POLYETHYLENE GLYCOL 17 GM (MIRALAX) PACK PO SCH ×2 (08:53→20:27)
[2016-11-27] MEDS: HYDROCHLOROTHIAZIDE 25 MG (HCTZ) TAB PO SCH (08:53)
[2016-11-27] MEDS: SENNA W/DOCUSATE (SENOKOT S) TABLET PO SCH ×2 (08:53→20:25)
[2016-11-27] MEDS: LACTULOSE SYRUP 10GM/15ML (ENULOSE) 30ML UDC PO SCH ×2 (08:53→20:25)
[2016-11-27] MEDS: MICONAZOLE 2% POWDER (DESENEX AF) 90 GM TOP SCH ×2 (08:53→20:26)
[2016-11-27] MEDS: MENTHOL/ZINC OXIDE (CALMOSEPTINE) 113 GM TUBE TOP SCH ×2 (08:53→20:27)
[2016-11-27] MEDS: amLODIPine 5 MG (NORVASC) TAB PO SCH (08:53)
[2016-11-27] MEDS: A & D OINT 60 GM TUBE TOP SCH (08:54)
[2016-11-27] MEDS: LIDOCAINE (LIDODERM) 5% PATCH TOP SCH (09:00)
--- NOTE | 2016-11-27 11:56 | Physical Therapy Daily Note ---
PT Daily Note-Current Subjective Patient in wheelchair pre tx, agrees to PT, states he has quite a bit of right shoulder pain today, would like to have estim for that at the end of tx. Appearance Patient in power chair post tx, he is mod I with wheelchair mobility. Mental Status Patient Orientation: Normal For Age cervical collar Transfers Functional [place] Measure 0=Not Assessed/NA 4=Minimal Assistance 1=Total Assistance 5=Supervision or Setup 2=Maximal Assistance 6=Modified [place] 3=Moderate Assistance 7=Complete IndependenceIRFPAI Quality Coding Scale 6 Independent with activity with or without an assistive device 5 Patient requires set up or clean up by helper. Patient completes activity by themselves 4 Supervision or touching assist (CGA). [place] provide cues , steadying assist 3 The helper provides less than half the effort to complete the activity 2 The helper provides more than half the effort to complete the activity 1 Dependent. The helper does all the effort to complete an activity 7 Patient refused to complete or attempt activity 9 The patient did not perform the activity before the current illness or injury 88 Not attempted due to Medical conditions or safety concerns Transfers (B, C, W/C) (FIM): 3 Sit to/from Stand: 3 Bed to/from Chair: 3 Patient had to perform 4 stand pivot transfers, he required more assist because he was standing from lower surfaces, he transferred from wheelchair to chair and back twice during working on adjusting wheelchair and twice to the stepper and back. Exercises NuStep Minutes: 15 NuStep Workload: 5 Treatments functional strengthening, transfer training, attempted to adjust his right leg rest but the lever is broken and cannot be engaged by any other means, will inquire about getting that fixed, interferential estim and MHP to right shoulder Assessment Current Status: Fair Progress patient had a lot of shoulder pain today and did not want to ambulate because of it PT Short Term Goals Short Term Goals Time Frame: Nov 10, 2016 Gait (FIM): 1 Gait Distance Comment: 10' Gait Level of Assist: 2 Gait Assistive Device: FWW, Walker Platform Wheelchair Distance: 150'x2 PT Railroad Purchasing Agent Goals Railroad Purchasing Agent Goals PT Railroad Purchasing Agent Goals Time Frame: Nov 24, 2016 Transfers (B,C,W/C) (FIM): 4 Sit to Lying (QC): 3 Lying-Sitting on Side/Bed(QC): 3 Sit to Stand (QC): 3 Rollin Roll Left to Right (QC): 3 Chair/Nqj-wz-Hxhok Xfer(QC): 3 Gait (FIM): 1 Distance: 20' Walk 10 feet (QC): 2 Gait Level of Assist: 2 Gait Assistive Device: FWW, Walker Platform Wheelchair (FIM): 6 Distance: 500' Wheelchair Level of Assist: 6 Wheel 50 feet with 2 turns (QC: 6 PT Plan Problem List Problem List: Activity Tolerance, Functional Strength, Safety, Balance, Gait, Transfer, Bed Mobility, ROM Treatment/Plan Treatment Plan: Continue Plan of Care Treatment Plan: Bed Mobility, Education, Functional Activity Fady, Functional Strength, Group Therapy, Gait, Safety, Therapeutic Exercise, Transfers Treatment Duration: Nov 24, 2016 Frequency: At least 5-7 days/Wk (IRF) Estimated Hrs Per Day: 2 hours per day Patient and/or Family Agrees t: Yes Safety Risks/Education Patient Education: Transfer Techniques, Correct Positioning, W/C Management, Safety Issues Teaching Recipient: Patient Teaching Methods: Demonstration, Discussion Response to Teaching: Reinforcement Needed Time/GCodes Time In: 1100 Time Out: 1200 Total Billed Treatment Time: 60 Total Billed Treatment 1 visit ES 15' EX 15' [facility] 15' FA 15' CATALINA RUBI PT Nov 27, 2016 11:56
--- NOTE | 2016-11-27 14:50 | Occupational Ther Daily Note ---
OT Current Status-Daily Note Subjective Pt seen in room, up in bed, agreeable to OT. No pain mentioned. Mental Status/Objective Functional [place] Measure 0=Not Assessed/NA 4=Minimal Assistance 1=Total Assistance 5=Supervision or Setup 2=Maximal Assistance 6=Modified [place] 3=Moderate Assistance 7=Complete [place] ADL-Treatment Pt reported that he is to wear his cervical collar for at least 6 weeks after surgery, until he returns to see his doctor. Pt was able to move his legs to EOB and sit up without help, with HOB up. He tended to lean to the right, even after help shifting his weight. He washed his face with setup, seated EOB. Mod assist to take shirt off and put clean one on. Max assist lower body dressing - he placed feet into pants with a little help, then pulled pants up to thighs, using both hands. Helped sampler pickup feet to get shoes/socks on. Used sit to stand lift because transfer more difficult into his new power chair because R legrest doesn't move out of the way. Also transferred with lift on and off BSC in transition to get up in chair. Cont unable to help with hygiene or clothing when in left. Once up in chair, pt brought himself to the gym. Functional [place] Measure 0=Not Assessed/NA 4=Minimal Assistance 1=Total Assistance 5=Supervision or Setup 2=Maximal Assistance 6=Modified [place] 3=Moderate Assistance 7=Complete IndependenceIRFPAI Quality Coding Scale 6 Independent with activity with or without an assistive device 5 Patient requires set up or clean up by helper. Patient completes activity by themselves 4 Supervision or touching assist (CGA). [place] provide cues , steadying assist 3 The helper provides less than half the effort to complete the activity 2 The helper provides more than half the effort to complete the activity 1 Dependent. The helper does all the effort to complete an activity 7 Patient refused to complete or attempt activity 9 The patient did not perform the activity before the current illness or injury 88 Not attempted due to Medical conditions or safety concerns Upper Body (FIM): 3 Lower Body Dressing (FIM): 2 Toileting (FIM): 1 Toilet/Commode Transfer (FIM): 1 Other Treatment paraffin applied to R hand. Pt worked on L shoulder flex and abd, working to isolate shoulder flexion (he tends to move into abduction). Skilled facilitation techniques used to increase L elbow extension from -30 to -10. Active and passive ROM to R hand, along with skilled facilitation techniques. pt showed increase in active movement R hand after tx. Pt also requested a way to put some gentle traction on R index and was set up with foam tape to gently pull fingers into flexion. Pt reported later that he tolerated it for well over an hour. Pt encouraged to ask for this over weekend and he can direct its application. Pt took himself back to his room after therapy. Education OT Patient Education: Home exercise program, Modified ADL techniques, Purpose of tx/functional activities Teaching Recipient: Patient Teaching Methods: Demonstration, Discussion Response to Teaching: Verbalize Understanding, Return Demonstration OT Short Term Goals Short Term Goals Time Frame: Nov 17, 2016 Eating(FIM): 4 Grooming(FIM): 3 Upper Body Dressing(FIM): 3 Lower Body Dressing(FIM): 3 Toileting(FIM): 3 Toilet/Commode Transfer(FIM): 3 Shower Transfer(FIM): 3 Additional Short Term Goals: 2-Verbalize Understanding, 3-ImproveStrength/Fady 1=Demonstrate adherence to instructed precautions during ADL tasks. 2=Patient will verbalize/demonstrate understanding of assistive devices/ modifications for ADL. 3=Patient will improve strength/tolerance for activity to enable patient to perform ADL's. OT Prison Goals Zinc Plating Machine Operator Goals Time Frame: Dec 01, 2016 Eating (FIM): 5 Eating (QC): 5 Groomin Oral Hygiene (QC): 5 Bathing(FIM): 5 Shower/Bathe Self (QC): 5 Upper Body Dressing(FIM): 5 Upper Body Dressing (QC): 5 Lower Body Dressing(FIM): 5 Lower Body Dressing (QC): 5 On/Off Footwear (QC): 4 Toileting(FIM): 5 Toileting Hygiene (QC): 5 Toilet/Commode Transfer(FIM): 5 Toilet/Commode Transfer (QC): 5 Shower Transfer(FIM): 5 Additional Goals: 2-Verbalize Understanding, 3-ImproveStrength/Fady 1=Demonstrate adherence to instructed precautions during ADL tasks. 2=Patient will verbalize/demonstrate understanding of assistive devices/ modifications for ADL. 3=Patient will improve strength/tolerance for activity to enable patient to perform ADL's. OT Education/Plan Problem List/Assessment Pt would benefit from skilled OT to increase his independence in basic self care to allow him to safely return to his home to live alone and to decrease caregiver burden. Discharge Recommendations Plan/Recommendations: Continue POC Treatment Plan/Plan of Care Patient would benefit from OT for education, treatment and training to promote independence in ADL's, mobility, safety and/or upper extremity function for ADL' s. Plan of Care: ADL Retraining, Functional Mobility, Group Exercise/Act as Ind ( education, exercise, activity tolerance, functional activities, socialization), UE Funct Exercise/Act, UE Neuromus Re-Ed/Coord, W/C Management Training Treatment Duration: Dec 01, 2016 Frequency: Twice Daily Estimated Hrs Per Day: 1.5 hours per day Agreement: Yes Rehab Potential: Fair Time/GCodes Start Time: 08:00 Stop Time: 09:00 Total Time Billed (hr/min): 60 Billed Treatment Time visit, 30 minutes ADL, 30 minutes neuromotor, paraffin bath THAI HOOVER OT Nov 27, 2016 14:50
--- NOTE | 2016-11-27 14:51 | Therapy Group Daily Note ---
Therapy Daily Group Note Exercises Fine Motor Other/Notes Pt maneuvered motorized w/c to OT/PT group. Group consisted of introductions ( name, place living, first dollar earned), socialization, table top activities that promoted fine motor and cognitive skills and peer interaction. Pt contributed to group discussion and assisted other pt's in activity when needed. Pt demonstrated increased UE control with gross grasp and reaching to place item in designated area. Pt demonstrated good cognitive skills and interacted with each peer affectively and courteously. After therapy, pt maneuvered w/c to room. Call light/phone in reach. All needs met in room. Start Time: 13:00 Stop Time: 14:20 Total Billed Treatment Time: 80 Total Billed Treatment 1-GRP PREMA MEJIAS Nov 27, 2016 14:51
--- NOTE | 2016-11-27 15:52 | PM & R (SOAP) Progress Note ---
Subjective Time Seen by Provider: 15:20 Subjective/Events-last exam Patient was seen in his room this afternoon.Continues to improve gradually Patient mod assist for transfers Rt Hand ROM improving with parafin baths Review of Systems Musculoskeletal: back pain Neurological: Weakness Objective Exam Last Set of Vital Signs Vital Signs Date Time Temp Pulse Resp B/P (MAP) Pulse Ox O2 Delivery O2 Flow Rate FiO2 11/27/16 09:00 Room Air 11/27/16 04:12 96.8 91 14 125/83 93 Capillary Refill : I&O Intake and Output 11/27/16 00:00 Intake Total 1434 ml Output Total 1400 ml Balance 34 ml Intake Oral 1434 ml Output Urine Total 1400 ml # Voids 2 General: Alert, Oriented X3, Cooperative, No Acute Distress HEENT: Atraumatic, PERRLA, EOMI, Mucous Memb Moist/Shedd Neck: Supple, Other (inciasion healing well C Collar in place) Lungs: Clear to Auscultation Heart: Regular Rate Abdomen: Normal Bowel Sounds Extremities: Other (trace edema rt hand) Skin: Other (rt heel wrapped) Neuro: Other (2-3 strength rt UE Numbness rt hand) Results Lab Laboratory Tests 11/24/16 16:02: Glucometer 195H 11/24/16 20:02: Glucometer 112H 11/25/16 06:20: Glucometer 137H 11/25/16 16:27: Glucometer 183H 11/26/16 05:13: Glucometer 141H 11/26/16 11:03: Glucometer 158H 11/26/16 16:22: Glucometer 134H 11/27/16 06:21: Glucometer 133H Assessment/Plan Assessment Cervical spine spondylosis with myelopathy s/p decompression DR Atkinson affecting U Limbs more then Lower with strength gradually improving but remaining with 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 affecting ADL skills Dysphagia improved diet advanced- to regular consistency discussed with RN AMY on cpap HTN controlled DM with episode of hypoglycemia Dr juarez has adjusted insulin -improved HLP Intolerance to oxy-disturbed sleep Pressure sore rt heel-improving DJD Left Knee DJD left Hip S/P rt HIP relacement DR Cantu remote Trochanteric bursitis left hip s/p Injection DR Riley Plan Continue PT/OT/Pain management F/U with Hospitalist and DR Atkinson as per their schedule Trend Accucheks and adjust insulin as needed Pain management Changed meds-improved Wound care reconsult to check rt heel -see orders-done as per above Patient doing better with switch to hydrocodone for pain-less side effects report Discussed discharge options.with SW. Check Xray left hip-done Consult ortho re possible injection for pain control-done Team Conference held 11-25-16--See report for full functional update and POC and ELOS Pain management Trial of Lidoderm patch-in progress. Continue wit paraffin baths for hands with OT as indicated JOSEY SALINAS MD Nov 27, 2016 15:52
[2016-11-27] MEDS ORDERED: CALCIUM CARBONATE 500 MG (TUMS) TAB.CHEW PO PRN (16:30)
[2016-11-27 18:11] VITALS: BP 125/88
[2016-11-27] MEDS: IRBESARTAN 150 MG (AVAPRO) TAB PO SCH (20:25)
[2016-11-28] MEDS: HYDROcodone/APAP 10 MG/325 MG (LORTAB) TAB PO PRN ×5 (01:03→19:26)
[2016-11-28 05:22] VITALS: BP 124/82
[2016-11-28] MEDS: metFORMIN 500 MG (GLUCOPHAGE) TAB PO SCH ×2 (06:03→19:26)
[2016-11-28] MEDS: MULTIVIT W/MINERALS TAB (THERAGRAN M) PO SCH (06:04)
[2016-11-28] MEDS: LACTULOSE SYRUP 10GM/15ML (ENULOSE) 30ML UDC PO SCH ×2 (08:06→20:46)
[2016-11-28] MEDS: SENNA W/DOCUSATE (SENOKOT S) TABLET PO SCH ×2 (08:07→20:44)
[2016-11-28] MEDS: POLYETHYLENE GLYCOL 17 GM (MIRALAX) PACK PO SCH ×2 (08:07→20:44)
[2016-11-28] MEDS: HYDROCHLOROTHIAZIDE 25 MG (HCTZ) TAB PO SCH (08:49)
[2016-11-28] MEDS: amLODIPine 5 MG (NORVASC) TAB PO SCH (08:49)
[2016-11-28] MEDS: MENTHOL/ZINC OXIDE (CALMOSEPTINE) 113 GM TUBE TOP SCH ×2 (08:50→20:51)
[2016-11-28] MEDS: inSUlin (REGULAR) HUMAN 1 UNIT/0.01 ML (CHARGE PER UNIT) SC SCH ×3 (08:50→19:25)
[2016-11-28] MEDS: A & D OINT 60 GM TUBE TOP SCH (08:50)
[2016-11-28] MEDS: MICONAZOLE 2% POWDER (DESENEX AF) 90 GM TOP SCH ×2 (08:51→20:47)
[2016-11-28] MEDS: LIDOCAINE (LIDODERM) 5% PATCH TOP SCH (09:56)
--- NOTE | 2016-11-28 12:35 | Physical Therapy Daily Note ---
PT Daily Note-Current Subjective Pain rated 6/10 in back and shoulders. Pt agreeable. Mental Status Patient Orientation: Person, Place, Situation Transfers Functional [place] Measure 0=Not Assessed/NA 4=Minimal Assistance 1=Total Assistance 5=Supervision or Setup 2=Maximal Assistance 6=Modified [place] 3=Moderate Assistance 7=Complete IndependenceIRFPAI Quality Coding Scale 6 Independent with activity with or without an assistive device 5 Patient requires set up or clean up by helper. Patient completes activity by themselves 4 Supervision or touching assist (CGA). [place] provide cues , steadying assist 3 The helper provides less than half the effort to complete the activity 2 The helper provides more than half the effort to complete the activity 1 Dependent. The helper does all the effort to complete an activity 7 Patient refused to complete or attempt activity 9 The patient did not perform the activity before the current illness or injury 88 Not attempted due to Medical conditions or safety concerns mod A of 2 to stand x 4 trials. Gait Training Gait Assistive Device: Walker Platform Pt amb with PW and CGA, close f/u of power chair x 100ft. Pt fatigued prior to reaching the goal pf end of [place]ord. Pt required 2 standing rest breaks prior to sitting. Pt hips deviated to the L with feet deviated to the R within his PW, Min A on the L side for balance required intermittently as pt fatigued. Assessment Current Status: Good Progress Pt alondra fair to well. Pt fatigued easily with ambulation. Pt says he usually walks further. Pt back in power chair with seat belt and call light pinned to his shirt per his request. All needs met. PT Short Term Goals Short Term Goals Time Frame: Nov 10, 2016 Gait (FIM): 1 Gait Distance Comment: 10' Gait Level of Assist: 2 Gait Assistive Device: FWW, Walker Platform Wheelchair Distance: 150'x2 PT Alf Goals Star Route Mail Driver Goals PT Star Route Mail Driver Goals Time Frame: Nov 24, 2016 Transfers (B,C,W/C) (FIM): 4 Sit to Lying (QC): 3 Lying-Sitting on Side/Bed(QC): 3 Sit to Stand (QC): 3 Rollin Roll Left to Right (QC): 3 Chair/Rql-un-Dytfz Xfer(QC): 3 Gait (FIM): 1 Distance: 20' Walk 10 feet (QC): 2 Gait Level of Assist: 2 Gait Assistive Device: FWW, Walker Platform Wheelchair (FIM): 6 Distance: 500' Wheelchair Level of Assist: 6 Wheel 50 feet with 2 turns (QC: 6 PT Plan Treatment/Plan Treatment Plan: Continue Plan of Care Treatment Plan: Bed Mobility, Education, Functional Activity Fady, Functional Strength, Group Therapy, Gait, Safety, Therapeutic Exercise, Transfers Treatment Duration: Nov 24, 2016 Frequency: At least 5-7 days/Wk (IRF) Estimated Hrs Per Day: 2 hours per day Patient and/or Family Agrees t: Yes Time/GCodes Time In: 1045 Time Out: 1110 Total Billed Treatment Time: 25 Total Billed Treatment 1, gait x 25 min NELSON DUMAS CPTA Nov 28, 2016 12:35
[2016-11-28 18:00] VITALS: BP 149/81
[2016-11-28] MEDS: IRBESARTAN 150 MG (AVAPRO) TAB PO SCH (20:46)
[2016-11-28] MEDS: DIAZEPAM 5 MG (VALIUM) TABLET PO PRN (20:46)
[2016-11-29] MEDS: HYDROcodone/APAP 10 MG/325 MG (LORTAB) TAB PO PRN ×6 (01:00→22:57)
[2016-11-29 05:21] VITALS: BP 127/81
[2016-11-29] MEDS: metFORMIN 500 MG (GLUCOPHAGE) TAB PO SCH ×2 (06:44→17:15)
[2016-11-29] MEDS: MULTIVIT W/MINERALS TAB (THERAGRAN M) PO SCH (06:44)
[2016-11-29] MEDS: SENNA W/DOCUSATE (SENOKOT S) TABLET PO SCH ×2 (09:28→20:22)
[2016-11-29] MEDS: HYDROCHLOROTHIAZIDE 25 MG (HCTZ) TAB PO SCH (09:28)
[2016-11-29] MEDS: amLODIPine 5 MG (NORVASC) TAB PO SCH (09:28)
[2016-11-29] MEDS: LACTULOSE SYRUP 10GM/15ML (ENULOSE) 30ML UDC PO SCH ×2 (09:30→20:22)
[2016-11-29] MEDS: inSUlin (REGULAR) HUMAN 1 UNIT/0.01 ML (CHARGE PER UNIT) SC SCH ×3 (09:31→18:18)
[2016-11-29] MEDS: POLYETHYLENE GLYCOL 17 GM (MIRALAX) PACK PO SCH ×2 (09:47→20:22)
[2016-11-29] MEDS: LIDOCAINE (LIDODERM) 5% PATCH TOP SCH (09:47)
[2016-11-29] MEDS: MENTHOL/ZINC OXIDE (CALMOSEPTINE) 113 GM TUBE TOP SCH ×2 (09:55→20:23)
[2016-11-29] MEDS: MICONAZOLE 2% POWDER (DESENEX AF) 90 GM TOP SCH ×2 (09:55→20:23)
[2016-11-29] MEDS: A & D OINT 60 GM TUBE TOP SCH (09:55)
[2016-11-29 17:14] VITALS: BP 136/68
[2016-11-29] MEDS: IRBESARTAN 150 MG (AVAPRO) TAB PO SCH (20:22)
[2016-11-29] MEDS: DIAZEPAM 5 MG (VALIUM) TABLET PO PRN (20:22)
[2016-11-30] MEDS: HYDROcodone/APAP 10 MG/325 MG (LORTAB) TAB PO PRN ×6 (04:02→21:00)
[2016-11-30 05:30] VITALS: BP 143/72
[2016-11-30] MEDS: metFORMIN 500 MG (GLUCOPHAGE) TAB PO SCH ×2 (06:51→16:45)
[2016-11-30] MEDS: MULTIVIT W/MINERALS TAB (THERAGRAN M) PO SCH (06:51)
[2016-11-30] MEDS: LIDOCAINE (LIDODERM) 5% PATCH TOP SCH (08:09)
[2016-11-30] MEDS: inSUlin (REGULAR) HUMAN 1 UNIT/0.01 ML (CHARGE PER UNIT) SC SCH ×3 (08:18→19:48)
[2016-11-30] MEDS: HYDROCHLOROTHIAZIDE 25 MG (HCTZ) TAB PO SCH (08:19)
[2016-11-30] MEDS: SENNA W/DOCUSATE (SENOKOT S) TABLET PO SCH ×2 (08:19→21:00)
[2016-11-30] MEDS: amLODIPine 5 MG (NORVASC) TAB PO SCH (08:19)
[2016-11-30] MEDS: MICONAZOLE 2% POWDER (DESENEX AF) 90 GM TOP SCH ×2 (08:23→21:01)
[2016-11-30] MEDS: A & D OINT 60 GM TUBE TOP SCH (08:23)
[2016-11-30] MEDS: LACTULOSE SYRUP 10GM/15ML (ENULOSE) 30ML UDC PO SCH ×2 (08:24→21:01)
[2016-11-30] MEDS: MENTHOL/ZINC OXIDE (CALMOSEPTINE) 113 GM TUBE TOP SCH ×2 (08:24→21:00)
[2016-11-30] MEDS: POLYETHYLENE GLYCOL 17 GM (MIRALAX) PACK PO SCH ×2 (08:24→21:01)
--- NOTE | 2016-11-30 10:16 | Physical Therapy Daily Note ---
PT Daily Note-Current Subjective Patient in wheelchair pre tx, agrees to PT, has pain of 6/10 in right shoulder and 7/10 in left hip. Appearance Patient is in power chair post tx, he is mod I with wheelchair mobility Mental Status Patient Orientation: Normal For Age cervical collar Transfers Functional [place] Measure 0=Not Assessed/NA 4=Minimal Assistance 1=Total Assistance 5=Supervision or Setup 2=Maximal Assistance 6=Modified [place] 3=Moderate Assistance 7=Complete IndependenceIRFPAI Quality Coding Scale 6 Independent with activity with or without an assistive device 5 Patient requires set up or clean up by helper. Patient completes activity by themselves 4 Supervision or touching assist (CGA). [place] provide cues , steadying assist 3 The helper provides less than half the effort to complete the activity 2 The helper provides more than half the effort to complete the activity 1 Dependent. The helper does all the effort to complete an activity 7 Patient refused to complete or attempt activity 9 The patient did not perform the activity before the current illness or injury 88 Not attempted due to Medical conditions or safety concerns Transfers (B, C, W/C) (FIM): 4 Sit to/from Stand: 4 Gait Training Gait (FIM): 2 Distance: 120'x2 Gait Level of Assist: 4 Gait Persons Needed: 1 Patient uses a bilateral platform walker, wheelchair follow. Exercises Seated Therapy Exercises: Ankle pumps, Hip flexion Seated Reps: 20 2 sets of 10 mini-squats at the parallel bars Treatments transfers, ambulation, functional strengthening Assessment Current Status: Fair Progress slow ambulation but needed less assist PT Short Term Goals Short Term Goals Time Frame: Nov 10, 2016 Gait (FIM): 1 Gait Distance Comment: 10' Gait Level of Assist: 2 Gait Assistive Device: FWW, Walker Platform Wheelchair Distance: 150'x2 PT Fdc Goals Fdc Goals PT Fdc Goals Time Frame: Nov 24, 2016 Transfers (B,C,W/C) (FIM): 4 Sit to Lying (QC): 3 Lying-Sitting on Side/Bed(QC): 3 Sit to Stand (QC): 3 Rollin Roll Left to Right (QC): 3 Chair/Ymh-nz-Xudvm Xfer(QC): 3 Gait (FIM): 1 Distance: 20' Walk 10 feet (QC): 2 Gait Level of Assist: 2 Gait Assistive Device: FWW, Walker Platform Wheelchair (FIM): 6 Distance: 500' Wheelchair Level of Assist: 6 Wheel 50 feet with 2 turns (QC: 6 PT Plan Problem List Problem List: Activity Tolerance, Functional Strength, Safety, Balance, Gait, Transfer, Bed Mobility, ROM Treatment/Plan Treatment Plan: Continue Plan of Care Treatment Plan: Bed Mobility, Education, Functional Activity Fady, Functional Strength, Group Therapy, Gait, Safety, Therapeutic Exercise, Transfers Treatment Duration: Nov 24, 2016 Frequency: At least 5-7 days/Wk (IRF) Estimated Hrs Per Day: 2 hours per day Patient and/or Family Agrees t: Yes Safety Risks/Education Patient Education: Gait Training, Transfer Techniques, Correct Positioning, W/ C Management, Safety Issues Teaching Recipient: Patient Teaching Methods: Demonstration, Discussion Response to Teaching: Reinforcement Needed Time/GCodes Time In: 930 Time Out: 1015 Total Billed Treatment Time: 45 Total Billed Treatment 1 visit EX 15' GT 30' CATALINA RUBI PT Nov 30, 2016 10:16
--- NOTE | 2016-11-30 11:58 | Occupational Ther Daily Note ---
OT Current Status-Daily Note Subjective Pt seen in room, up in power chair, agreeable to OT. No pain mentioned and pt reported R shoulder feels better after PT modalities. pt would like paraffin tx on R hand because he feels like it is making a difference in his hand function. Appearance Alert, cooperative Mental Status/Objective Functional [place] Measure 0=Not Assessed/NA 4=Minimal Assistance 1=Total Assistance 5=Supervision or Setup 2=Maximal Assistance 6=Modified [place] 3=Moderate Assistance 7=Complete [place] ADL-Treatment Pt said that he has been working on scooping eggs and feeding himself over the weekend and can get about 75% of the eggs to his mouth. Asked about commercial built up handled silverware and weighted silverware. Discussed pros and cons and will let pt trial them. Pt propelled himself to accessible bathroom and was able to position himself at the sink ( a little help needed for problem solving how to make the controls of this newest chair fit at the sink). Props L UE up on countertop for stability. Functional [place] Measure 0=Not Assessed/NA 4=Minimal Assistance 1=Total Assistance 5=Supervision or Setup 2=Maximal Assistance 6=Modified [place] 3=Moderate Assistance 7=Complete IndependenceIRFPAI Quality Coding Scale 6 Independent with activity with or without an assistive device 5 Patient requires set up or clean up by helper. Patient completes activity by themselves 4 Supervision or touching assist (CGA). [place] provide cues , steadying assist 3 The helper provides less than half the effort to complete the activity 2 The helper provides more than half the effort to complete the activity 1 Dependent. The helper does all the effort to complete an activity 7 Patient refused to complete or attempt activity 9 The patient did not perform the activity before the current illness or injury 88 Not attempted due to Medical conditions or safety concerns Grooming (FIM): 4 (Able to wash face and hands with setup, brush teeth with setup, shave about 3/4 of his face but not comb his hair. Uses universal cuff and is able to change angle of toothbrush or razor ) Other Treatment After paraffin tx, skilled facilitation techniques used to increase active and passive range R hand. Also worked on isolating intrinsics in both hands - does better with L hand. Pt said he has been working on his bilat thumb movement over the weekend and was given some intrinsic exercises to do on his own in his room. Pt able to take himself back to his room. Education OT Patient Education: Modified ADL techniques, Purpose of tx/functional activities, Use of adapted equipment Teaching Recipient: Patient Teaching Methods: Discussion Response to Teaching: Verbalize Understanding OT Short Term Goals Short Term Goals Time Frame: Nov 17, 2016 Eating(FIM): 4 Grooming(FIM): 3 Upper Body Dressing(FIM): 3 Lower Body Dressing(FIM): 3 Toileting(FIM): 3 Toilet/Commode Transfer(FIM): 3 Shower Transfer(FIM): 3 Additional Short Term Goals: 2-Verbalize Understanding, 3-ImproveStrength/Fady 1=Demonstrate adherence to instructed precautions during ADL tasks. 2=Patient will verbalize/demonstrate understanding of assistive devices/ modifications for ADL. 3=Patient will improve strength/tolerance for activity to enable patient to perform ADL's. OT Usp Goals Usp Goals Time Frame: Dec 01, 2016 Eating (FIM): 5 Eating (QC): 5 Groomin Oral Hygiene (QC): 5 Bathing(FIM): 5 Shower/Bathe Self (QC): 5 Upper Body Dressing(FIM): 5 Upper Body Dressing (QC): 5 Lower Body Dressing(FIM): 5 Lower Body Dressing (QC): 5 On/Off Footwear (QC): 4 Toileting(FIM): 5 Toileting Hygiene (QC): 5 Toilet/Commode Transfer(FIM): 5 Toilet/Commode Transfer (QC): 5 Shower Transfer(FIM): 5 Additional Goals: 2-Verbalize Understanding, 3-ImproveStrength/Fady 1=Demonstrate adherence to instructed precautions during ADL tasks. 2=Patient will verbalize/demonstrate understanding of assistive devices/ modifications for ADL. 3=Patient will improve strength/tolerance for activity to enable patient to perform ADL's. OT Education/Plan Problem List/Assessment Pt would benefit from skilled OT to increase his independence in basic self care to allow him to safely return to his home to live alone and to decrease caregiver burden. Discharge Recommendations Plan/Recommendations: Continue POC Treatment Plan/Plan of Care Patient would benefit from OT for education, treatment and training to promote independence in ADL's, mobility, safety and/or upper extremity function for ADL' s. Plan of Care: ADL Retraining, Functional Mobility, Group Exercise/Act as Ind ( education, exercise, activity tolerance, functional activities, socialization), UE Funct Exercise/Act, UE Neuromus Re-Ed/Coord, W/C Management Training Treatment Duration: Dec 01, 2016 Frequency: Twice Daily Estimated Hrs Per Day: 1.5 hours per day Agreement: Yes Rehab Potential: Fair Time/GCodes Start Time: 08:30 Stop Time: 09:30 Total Time Billed (hr/min): 60 Billed Treatment Time visit, 30 minutes ADL, 30 minutes neuromotor, paraffin bath THAI HOOVER OT Nov 30, 2016 11:58
--- NOTE | 2016-11-30 14:47 | Therapy Group Daily Note ---
Therapy Daily Group Note Patient Education Topic Other List Below (TRF techn[employer]) Other/Notes Pt. attended group PT OT session , came and went via power chair. Pt introduced self and shared with group minimally. Education topic encompassed TRF safety and techniques from bed supine, rolling side lying to sit, sit to stand as well as SPT bed to chair and floor TRFs.. pts all shared advice as well as experiences with fall prevention and TRFs at home. Pt. to room after Rx with marino at hand Start Time: 13:00 Stop Time: 14:15 Total Billed Treatment Time: 75 Total Billed Treatment 1,GRP JONATHON HUGHES HYDROELECTRIC PLANT ELECTRICIAN Nov 30, 2016 14:46
[2016-11-30] MEDS: DIAZEPAM 5 MG (VALIUM) TABLET PO PRN (14:58)
[2016-11-30 18:49] VITALS: BP 127/86
--- NOTE | 2016-11-30 18:52 | PM & R (SOAP) Progress Note ---
Subjective Time Seen by Provider: 18:45 Subjective/Events-last exam Patient was seen in his room this evening Patient min assist for grooming and transfers,Patient feels that paraffin baths helping flexibility of hands Objective Exam Last Set of Vital Signs Vital Signs Date Time Temp Pulse Resp B/P (MAP) Pulse Ox O2 Delivery O2 Flow Rate FiO2 11/30/16 17:14 97.8 11/30/16 09:00 Room Air 11/30/16 05:30 85 18 143/72 97 Capillary Refill : I&O Intake and Output 11/30/16 00:00 Intake Total 1860 ml Output Total 1900 ml Balance -40 ml Intake Oral 1860 ml Output Urine Total 1900 ml # Voids 4 # Bowel Movements 2 General: Alert, Oriented X3, Cooperative, No Acute Distress HEENT: Atraumatic, PERRLA, EOMI, Mucous Memb Moist/[place] Neck: Supple, Other (inciasion healing well C Collar in place) Lungs: Clear to Auscultation Heart: Regular Rate Abdomen: Normal Bowel Sounds Extremities: Other (trace edema rt hand) Skin: Other (rt heel wrapped) Neuro: Other (2-3 strength rt UE Numbness rt hand) Results Lab Laboratory Tests 11/28/16 05:25: Glucometer 146H 11/28/16 19:09: Glucometer 128H 11/29/16 06:17: Glucometer 127H 11/29/16 16:49: Glucometer 121H 11/29/16 19:41: Glucometer 354H 11/30/16 06:55: Glucometer 135H 11/30/16 16:57: Glucometer 199H Assessment/Plan Assessment Cervical spine spondylosis with myelopathy s/p decompression DR Atkinson affecting U Limbs more then Lower with strength gradually improving but 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 affecting 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 skills Dysphagia improved diet advanced- to regular consistency discussed with RN AMY on cpap HTN controlled DM with episode of hypoglycemia Dr juarez has adjusted insulin -improved HLP Intolerance to oxy-disturbed sleep Pressure sore rt heel-improving DJD Left Knee DJD left Hip S/P rt HIP relacement DR Cantu remote Trochanteric bursitis left hip s/p Injection DR Riley Plan Continue PT/OT/Pain management F/U with Hospitalist and DR Atkinson as per their schedule Trend Accucheks and adjust insulin as needed Pain management Changed meds-improved Wound care reconsult to check rt heel -see orders-done as per above Patient doing better with switch to hydrocodone for pain-less side effects report Discussed discharge options.with SW. Check Xray left hip-done Consult ortho re possible injection for pain control-done Team Conference held 11-25-16--See report for full functional update and POC and ELOS Pain management Trial of Lidoderm patch-in progress. Continue wit paraffin baths for hands with OT as indicated Next Team Confernece 12/02/16 JOSEY SALINAS MD Nov 30, 2016 18:52
[2016-11-30 20:57] VITALS: BP 128/84
[2016-11-30] MEDS: IRBESARTAN 150 MG (AVAPRO) TAB PO SCH (21:00)
[2016-12-01] MEDS: HYDROcodone/APAP 10 MG/325 MG (LORTAB) TAB PO PRN ×6 (01:20→22:21)
[2016-12-01 05:49] VITALS: BP 137/77
[2016-12-01] MEDS: MULTIVIT W/MINERALS TAB (THERAGRAN M) PO SCH (07:04)
[2016-12-01] MEDS: metFORMIN 500 MG (GLUCOPHAGE) TAB PO SCH ×2 (07:04→17:40)
[2016-12-01] MEDS: inSUlin (REGULAR) HUMAN 1 UNIT/0.01 ML (CHARGE PER UNIT) SC SCH ×3 (07:36→17:40)
[2016-12-01] MEDS: POLYETHYLENE GLYCOL 17 GM (MIRALAX) PACK PO SCH ×2 (09:00→21:01)
[2016-12-01] MEDS: LIDOCAINE (LIDODERM) 5% PATCH TOP SCH (09:00)
[2016-12-01] MEDS: HYDROCHLOROTHIAZIDE 25 MG (HCTZ) TAB PO SCH (09:43)
[2016-12-01] MEDS: amLODIPine 5 MG (NORVASC) TAB PO SCH (09:43)
[2016-12-01] MEDS: MENTHOL/ZINC OXIDE (CALMOSEPTINE) 113 GM TUBE TOP SCH ×2 (09:46→21:02)
[2016-12-01] MEDS: MICONAZOLE 2% POWDER (DESENEX AF) 90 GM TOP SCH ×2 (09:46→21:02)
--- NOTE | 2016-12-01 10:25 | Occupational Ther Daily Note ---
OT Current Status-Daily Note Subjective Pt seen in room, up in bed, agreeable to OT. No pain mentioned. Appearance Alert, cooperative, flat affect Mental Status/Objective Functional [place] Measure 0=Not Assessed/NA 4=Minimal Assistance 1=Total Assistance 5=Supervision or Setup 2=Maximal Assistance 6=Modified [place] 3=Moderate Assistance 7=Complete [place] ADL-Treatment Pt was agreeable to shower. With head of bed up, he scooted to the edge of bed without assistance. Pt assisted with placing feet on sit to stand lift and was transferred to rolling shower chair. After shower, transferred per lift to his power chair (one footrest still does not return to factory clerk of the way). See ADL details below. Progress made with bathing abilities. Has also made progress with grooming and feeding and use of R hand. Functional [place] Measure 0=Not Assessed/NA 4=Minimal Assistance 1=Total Assistance 5=Supervision or Setup 2=Maximal Assistance 6=Modified [place] 3=Moderate Assistance 7=Complete IndependenceIRFPAI Quality Coding Scale 6 Independent with activity with or without an assistive device 5 Patient requires set up or clean up by helper. Patient completes activity by themselves 4 Supervision or touching assist (CGA). [place] provide cues , steadying assist 3 The helper provides less than half the effort to complete the activity 2 The helper provides more than half the effort to complete the activity 1 Dependent. The helper does all the effort to complete an activity 7 Patient refused to complete or attempt activity 9 The patient did not perform the activity before the current illness or injury 88 Not attempted due to Medical conditions or safety concerns Bathing (FIM): 3 (70% Using adapted washcloth, pt was able to wash listed parts, including kaleb in front. Able to do more when washcloth does not drop out of hands. OT washed hair with dandruff shampoo. wheeled shower chair, hand held shower, grab bars) Bathing Location: L Arm, R Arm, L Upper Leg, R Upper Leg, Chest, Abdomen, Perineal Area Upper Body (FIM): 3 (Mod assist to don t-shirt. Able to place R hand in shirt , most of L UE, help to get shirt over head and able to pull shirt down. Encouraged to use R hand available grasp) Lower Body Dressing (FIM): 2 (Able to pick feet up to place them in pants legs and pull pants up to thighs. Unable to pull pants u p over hips and unable to don/doff socks and shoes) Toileting (FIM): 1 (Unable to manage clothing or hygiene. BSC) Toilet/Commode Transfer (FIM): 2 (helped with foot placement on lift. Transferred with sit to stand lift) Shower Transfer(FIM): 2 (Helped with foot placement on lift. Transferred to and from wheeled shower chair. ) Other Treatment Worked on intrinsic exercises R hand. Also used skilled facilitation techniques to work on grasp R hand. After tx pt was able to hold R middle, ring and little fingers almost to touch his palm and R index about 1.5 inches to palm. Cont with weakness in intrinsics which limit active MCP flexion. Pt educ musculature in hand and forearm Education OT Patient Education: Modified ADL techniques, Progress toward Goal/Update tx plan, Purpose of tx/functional activities, Use of adapted equipment Teaching Recipient: Patient Teaching Methods: Demonstration, Discussion OT Short Term Goals Short Term Goals Time Frame: Nov 17, 2016 Eating(FIM): 4 Grooming(FIM): 3 Upper Body Dressing(FIM): 3 Lower Body Dressing(FIM): 3 Toileting(FIM): 3 Toilet/Commode Transfer(FIM): 3 Shower Transfer(FIM): 3 Additional Short Term Goals: 2-Verbalize Understanding, 3-ImproveStrength/Fady 1=Demonstrate adherence to instructed precautions during ADL tasks. 2=Patient will verbalize/demonstrate understanding of assistive devices/ modifications for ADL. 3=Patient will improve strength/tolerance for activity to enable patient to perform ADL's. OT Service Advocate Contact Goals Alf Goals Time Frame: Dec 01, 2016 Eating (FIM): 5 Eating (QC): 5 Groomin Oral Hygiene (QC): 5 Bathing(FIM): 5 Shower/Bathe Self (QC): 5 Upper Body Dressing(FIM): 5 Upper Body Dressing (QC): 5 Lower Body Dressing(FIM): 5 Lower Body Dressing (QC): 5 On/Off Footwear (QC): 4 Toileting(FIM): 5 Toileting Hygiene (QC): 5 Toilet/Commode Transfer(FIM): 5 Toilet/Commode Transfer (QC): 5 Shower Transfer(FIM): 5 Additional Goals: 2-Verbalize Understanding, 3-ImproveStrength/Fady 1=Demonstrate adherence to instructed precautions during ADL tasks. 2=Patient will verbalize/demonstrate understanding of assistive devices/ modifications for ADL. 3=Patient will improve strength/tolerance for activity to enable patient to perform ADL's. OT Education/Plan Problem List/Assessment Pt would benefit from skilled OT to increase his independence in basic self care to allow him to safely return to his home to live alone and to decrease caregiver burden. Discharge Recommendations Plan/Recommendations: Continue POC Treatment Plan/Plan of Care Patient would benefit from OT for education, treatment and training to promote independence in ADL's, mobility, safety and/or upper extremity function for ADL' s. Plan of Care: ADL Retraining, Functional Mobility, Group Exercise/Act as Ind ( education, exercise, activity tolerance, functional activities, socialization), UE Funct Exercise/Act, UE Neuromus Re-Ed/Coord, W/C Management Training Treatment Duration: Dec 01, 2016 Frequency: Twice Daily Estimated Hrs Per Day: 1.5 hours per day Agreement: Yes Rehab Potential: Fair Time/GCodes Start Time: 08:30 Stop Time: 10:00 Total Time Billed (hr/min): 90 Billed Treatment Time visit, 75 minutes ADL, 15 minutes neuromotor THAI HOOVER OT Dec 01, 2016 10:25
[2016-12-01] MEDS: SENNA W/DOCUSATE (SENOKOT S) TABLET PO SCH ×2 (10:42→21:01)
[2016-12-01] MEDS: LACTULOSE SYRUP 10GM/15ML (ENULOSE) 30ML UDC PO SCH ×2 (10:42→21:01)
--- NOTE | 2016-12-01 11:12 | PM & R (SOAP) Progress Note ---
Subjective Time Seen by Provider: 08:00 Subjective/Events-last exam Patient was seen in his room this AM Eating and sleeping well Patient min assist for transfers AROM of fingers gradually improving. Objective Exam Last Set of Vital Signs Vital Signs Date Time Temp Pulse Resp B/P (MAP) Pulse Ox O2 Delivery O2 Flow Rate FiO2 12/01/16 05:49 97.4 81 20 137/77 97 Room Air Capillary Refill : I&O Intake and Output 12/01/16 00:00 Intake Total 1350 ml Output Total 2009 ml Balance -660 ml Intake Oral 1350 ml Output Urine Total 2010 ml # Bowel Movements 1 General: Alert, Oriented X3, Cooperative, No Acute Distress HEENT: Atraumatic, PERRLA, EOMI, Mucous Memb Moist/[place] Neck: Supple, Other (inciasion healing well C Collar in place) Lungs: Clear to Auscultation Heart: Regular Rate Abdomen: Normal Bowel Sounds Extremities: Other (trace edema rt hand) Skin: Other (rt heel wrapped) Neuro: Other (2-3 strength rt UE Numbness rt hand) Results Lab Laboratory Tests 11/28/16 19:09: Glucometer 128H 11/29/16 06:17: Glucometer 127H 11/29/16 16:49: Glucometer 121H 11/29/16 19:41: Glucometer 354H 11/30/16 06:55: Glucometer 135H 11/30/16 16:57: Glucometer 199H 12/01/16 05:35: Glucometer 141H Assessment/Plan Assessment Cervical spine spondylosis with myelopathy s/p decompression DR Atkinson affecting U Limbs more then Lower with strength gradually improving but 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 Dysphagia improved diet advanced- to regular consistency discussed with RN AMY on cpap HTN controlled DM with episode of hypoglycemia Dr juarez has adjusted insulin -improved HLP Intolerance to oxy-disturbed sleep Pressure sore rt heel-improving DJD Left Knee DJD left Hip S/P rt HIP relacement DR Cantu remote Trochanteric bursitis left hip s/p Injection DR Riley Plan Continue PT/OT/Pain management F/U with Hospitalist and DR Atkinson as per their schedule Trend Accucheks and adjust insulin as needed Pain management Changed meds-improved Wound care reconsult to check rt heel -see orders-done as per above Patient doing better with switch to hydrocodone for pain-less side effects report Discussed discharge options.with SW. Check Xray left hip-done Consult ortho re possible injection for pain control-done Team Conference held 11-25-16--See report for full functional update and POC and ELOS Pain management Trial of Lidoderm patch-in progress. Continue wit paraffin baths for hands with OT as indicated Next Team Confernece tomorrow 12/02/16 JOSEY SALINAS MD Dec 01, 2016 11:12
--- NOTE | 2016-12-01 12:01 | Physical Therapy Daily Note ---
PT Daily Note-Current Subjective Patient in power chair pre tx, agrees to PT, has pain of 7/10 in right shoulder and left hip. Appearance Patient in power chair post tx Mental Status Patient Orientation: Normal For Age cervical collar Transfers Functional [place] Measure 0=Not Assessed/NA 4=Minimal Assistance 1=Total Assistance 5=Supervision or Setup 2=Maximal Assistance 6=Modified [place] 3=Moderate Assistance 7=Complete IndependenceIRFPAI Quality Coding Scale 6 Independent with activity with or without an assistive device 5 Patient requires set up or clean up by helper. Patient completes activity by themselves 4 Supervision or touching assist (CGA). [place] provide cues , steadying assist 3 The helper provides less than half the effort to complete the activity 2 The helper provides more than half the effort to complete the activity 1 Dependent. The helper does all the effort to complete an activity 7 Patient refused to complete or attempt activity 9 The patient did not perform the activity before the current illness or injury 88 Not attempted due to Medical conditions or safety concerns Transfers (B, C, W/C) (FIM): 4 Sit to/from Stand: 4 Gait Training Gait (FIM): 2 Distance: 120'x2 Gait Level of Assist: 4 Gait Persons Needed: 1 bilateral platform walker, patient needs a little assist guiding the walker Wheelchair Training Does the Pt Use a Wheelchair?: Yes Wheelchair (FIM): 6 Distance: 5000' Type of Wheelchair: Motorized Patient drove his wheelchair outdoors over community surfaces to see the difference between this chair and his last one. There were no difficulties with the terrain. Also we discussed leg rest issues and the need to get a film cleaner to increase the speed on his chair. She will be looking into those issues. Treatments wheelchair mobility, ambulation Assessment Current Status: Fair Progress improving endurance and ambulation PT Short Term Goals Short Term Goals Time Frame: Nov 10, 2016 Gait (FIM): 1 Gait Distance Comment: 10' Gait Level of Assist: 2 Gait Assistive Device: FWW, Walker Platform Wheelchair Distance: 150'x2 PT Shelter Goals Blueprint Machine Operator Goals PT Blueprint Machine Operator Goals Time Frame: Nov 24, 2016 Transfers (B,C,W/C) (FIM): 4 Sit to Lying (QC): 3 Lying-Sitting on Side/Bed(QC): 3 Sit to Stand (QC): 3 Rollin Roll Left to Right (QC): 3 Chair/Nzi-nq-Sgutl Xfer(QC): 3 Gait (FIM): 1 Distance: 20' Walk 10 feet (QC): 2 Gait Level of Assist: 2 Gait Assistive Device: FWW, Walker Platform Wheelchair (FIM): 6 Distance: 500' Wheelchair Level of Assist: 6 Wheel 50 feet with 2 turns (QC: 6 PT Plan Problem List Problem List: Activity Tolerance, Functional Strength, Safety, Balance, Gait, Transfer, Bed Mobility, ROM Treatment/Plan Treatment Plan: Continue Plan of Care Treatment Plan: Bed Mobility, Education, Functional Activity Fady, Functional Strength, Group Therapy, Gait, Safety, Therapeutic Exercise, Transfers Treatment Duration: Nov 24, 2016 Frequency: At least 5-7 days/Wk (IRF) Estimated Hrs Per Day: 2 hours per day Patient and/or Family Agrees t: Yes Safety Risks/Education Patient Education: Gait Training, Transfer Techniques, Correct Positioning, W/ C Management, Safety Issues Teaching Recipient: Patient Teaching Methods: Demonstration, Discussion Response to Teaching: Reinforcement Needed Time/GCodes Time In: 1100 Time Out: 1200 Total Billed Treatment Time: 60 Total Billed Treatment 1 visit GT 30' [facility] 30' CATALINA RUBI PT Dec 01, 2016 12:01
[2016-12-01] MEDS: A & D OINT 60 GM TUBE TOP SCH (12:51)
--- NOTE | 2016-12-01 14:30 | Physical Therapy Daily Note ---
PT Daily Note-Current Subjective Patient in bed pre tx, agrees to PT, he would like to get in his chair and do some parallel bars exercises. Patient has pain of 5-6/10 in left hip and right shoulder. Appearance Patient in power chair post tx Mental Status Patient Orientation: Normal For Age cervical collar Transfers Functional [place] Measure 0=Not Assessed/NA 4=Minimal Assistance 1=Total Assistance 5=Supervision or Setup 2=Maximal Assistance 6=Modified [place] 3=Moderate Assistance 7=Complete IndependenceIRFPAI Quality Coding Scale 6 Independent with activity with or without an assistive device 5 Patient requires set up or clean up by helper. Patient completes activity by themselves 4 Supervision or touching assist (CGA). [place] provide cues , steadying assist 3 The helper provides less than half the effort to complete the activity 2 The helper provides more than half the effort to complete the activity 1 Dependent. The helper does all the effort to complete an activity 7 Patient refused to complete or attempt activity 9 The patient did not perform the activity before the current illness or injury 88 Not attempted due to Medical conditions or safety concerns Transfers (B, C, W/C) (FIM): 4 Scootin Rollin Supine to/from Sit: 4 Sit to/from Stand: 4 Bed to/from Chair: 4 Patient was able to perform supine to sit with min A but only with the head of the bed elevated. Exercises Standing: Mini squats, Sit to Stand Standing Reps: 20 Treatments functional strengthening, bed mobility, transfers Assessment Current Status: Fair Progress improving mobility PT Short Term Goals Short Term Goals Time Frame: Nov 10, 2016 Gait (FIM): 1 Gait Distance Comment: 10' Gait Level of Assist: 2 Gait Assistive Device: FWW, Walker Platform Wheelchair Distance: 5000' PT Senior Living Goals Senior Living Goals PT Senior Living Goals Time Frame: Nov 24, 2016 Transfers (B,C,W/C) (FIM): 4 Sit to Lying (QC): 3 Lying-Sitting on Side/Bed(QC): 3 Sit to Stand (QC): 3 Rollin Roll Left to Right (QC): 3 Chair/Iaw-eu-Ntgux Xfer(QC): 3 Gait (FIM): 1 Distance: 20' Walk 10 feet (QC): 2 Gait Level of Assist: 2 Gait Assistive Device: FWW, Walker Platform Wheelchair (FIM): 6 Distance: 500' Wheelchair Level of Assist: 6 Wheel 50 feet with 2 turns (QC: 6 PT Plan Problem List Problem List: Activity Tolerance, Functional Strength, Safety, Balance, Gait, Transfer, Bed Mobility, ROM Treatment/Plan Treatment Plan: Continue Plan of Care Treatment Plan: Bed Mobility, Education, Functional Activity Fady, Functional Strength, Group Therapy, Gait, Safety, Therapeutic Exercise, Transfers Treatment Duration: Nov 24, 2016 Frequency: At least 5-7 days/Wk (IRF) Estimated Hrs Per Day: 2 hours per day Patient and/or Family Agrees t: Yes Safety Risks/Education Patient Education: Transfer Techniques, Correct Positioning, Safety Issues Teaching Recipient: Patient Teaching Methods: Demonstration, Discussion Response to Teaching: Reinforcement Needed Time/GCodes Time In: 1400 Time Out: 1430 Total Billed Treatment Time: 30 Total Billed Treatment 1 visit EX 20' FA 10' CATALINA RUBI PT Dec 01, 2016 14:30
[2016-12-01 17:58] VITALS: BP 112/77
[2016-12-01] MEDS: IRBESARTAN 150 MG (AVAPRO) TAB PO SCH (21:01)
[2016-12-02] MEDS: HYDROcodone/APAP 10 MG/325 MG (LORTAB) TAB PO PRN ×5 (03:34→20:46)
[2016-12-02 05:31] VITALS: BP 122/77
[2016-12-02] MEDS: MULTIVIT W/MINERALS TAB (THERAGRAN M) PO SCH (06:26)
[2016-12-02] MEDS: metFORMIN 500 MG (GLUCOPHAGE) TAB PO SCH ×2 (06:26→18:13)
[2016-12-02] MEDS: inSUlin (REGULAR) HUMAN 1 UNIT/0.01 ML (CHARGE PER UNIT) SC SCH ×3 (07:36→18:13)
[2016-12-02] MEDS: amLODIPine 5 MG (NORVASC) TAB PO SCH (08:25)
[2016-12-02] MEDS: LIDOCAINE (LIDODERM) 5% PATCH TOP SCH ×2 (08:25→08:32)
[2016-12-02] MEDS: HYDROCHLOROTHIAZIDE 25 MG (HCTZ) TAB PO SCH (08:25)
[2016-12-02] MEDS: SENNA W/DOCUSATE (SENOKOT S) TABLET PO SCH ×2 (08:25→20:09)
[2016-12-02] MEDS: A & D OINT 60 GM TUBE TOP SCH (08:30)
[2016-12-02] MEDS: MICONAZOLE 2% POWDER (DESENEX AF) 90 GM TOP SCH ×2 (08:30→20:13)
[2016-12-02] MEDS: MENTHOL/ZINC OXIDE (CALMOSEPTINE) 113 GM TUBE TOP SCH ×2 (08:30→20:14)
[2016-12-02] MEDS: POLYETHYLENE GLYCOL 17 GM (MIRALAX) PACK PO SCH ×2 (08:31→20:10)
[2016-12-02] MEDS: LACTULOSE SYRUP 10GM/15ML (ENULOSE) 30ML UDC PO SCH ×2 (08:31→20:09)
[2016-12-02] MEDS: DIAZEPAM 5 MG (VALIUM) TABLET PO PRN ×2 (10:24→18:18)
--- NOTE | 2016-12-02 10:57 | Physical Therapy Daily Note ---
PT Daily Note-Current Subjective Patient in wheelchair pre tx, agrees to PT, has pain of 6/10 in his right shoulder and left hip. Appearance Patient in power chair post tx, seatbelt on. Mental Status Patient Orientation: Normal For Age cervical collar Transfers Functional [place] Measure 0=Not Assessed/NA 4=Minimal Assistance 1=Total Assistance 5=Supervision or Setup 2=Maximal Assistance 6=Modified [place] 3=Moderate Assistance 7=Complete IndependenceIRFPAI Quality Coding Scale 6 Independent with activity with or without an assistive device 5 Patient requires set up or clean up by helper. Patient completes activity by themselves 4 Supervision or touching assist (CGA). [place] provide cues , steadying assist 3 The helper provides less than half the effort to complete the activity 2 The helper provides more than half the effort to complete the activity 1 Dependent. The helper does all the effort to complete an activity 7 Patient refused to complete or attempt activity 9 The patient did not perform the activity before the current illness or injury 88 Not attempted due to Medical conditions or safety concerns Transfers (B, C, W/C) (FIM): 4 Sit to/from Stand: 4 Bed to/from Chair: 4 Gait Training Gait (FIM): 2 Distance: 120'x2 Gait Level of Assist: 4 Gait Persons Needed: 1 Uses a bilateral platform walker, min A, wheelchair follow Wheelchair Training Does the Pt Use a Wheelchair?: Yes Wheelchair (FIM): 6 Distance: 150'x2 Type of Wheelchair: Motorized Exercises NuStep Minutes: 15 NuStep Workload: 5 Treatments transfers, ambulation, functional strengthening, wheelchair mobility Assessment Current Status: Fair Progress improving ambulation PT Short Term Goals Short Term Goals Time Frame: Nov 10, 2016 Gait (FIM): 1 Gait Distance Comment: 10' Gait Level of Assist: 2 Gait Assistive Device: FWW, Walker Platform Wheelchair Distance: 5000' PT Mcc Goals Mcc Goals PT Dental Hygienist Mobile Coordinator Goals Time Frame: Nov 24, 2016 Transfers (B,C,W/C) (FIM): 4 Sit to Lying (QC): 3 Lying-Sitting on Side/Bed(QC): 3 Sit to Stand (QC): 3 Rollin Roll Left to Right (QC): 3 Chair/Aao-rl-Aamzc Xfer(QC): 3 Gait (FIM): 1 Distance: 20' Walk 10 feet (QC): 2 Gait Level of Assist: 2 Gait Assistive Device: FWW, Walker Platform Wheelchair (FIM): 6 Distance: 500' Wheelchair Level of Assist: 6 Wheel 50 feet with 2 turns (QC: 6 PT Plan Problem List Problem List: Activity Tolerance, Functional Strength, Safety, Balance, Gait, Transfer, Bed Mobility, ROM Treatment/Plan Treatment Plan: Continue Plan of Care Treatment Plan: Bed Mobility, Education, Functional Activity Fady, Functional Strength, Group Therapy, Gait, Safety, Therapeutic Exercise, Transfers Treatment Duration: Nov 24, 2016 Frequency: At least 5-7 days/Wk (IRF) Estimated Hrs Per Day: 2 hours per day Patient and/or Family Agrees t: Yes Safety Risks/Education Patient Education: Gait Training, Transfer Techniques, Correct Positioning, W/ C Management, Safety Issues Teaching Recipient: Patient Teaching Methods: Demonstration, Discussion Response to Teaching: Reinforcement Needed Time/GCodes Time In: 1000 Time Out: 1100 Total Billed Treatment Time: 60 Total Billed Treatment 1 visit EX 15' FA 15' GT 30' CATALINA RUBI PT Dec 02, 2016 10:57
--- NOTE | 2016-12-02 13:31 | Occupational Ther Daily Note ---
OT Current Status-Daily Note Subjective Pt. doesn't report a pain level, but does indicate that bilateral UE are " tender and sore" with increased stretch. OT stretched/completed PROM to pt's tolerance level to bilateral UE. Appearance Pt. up in chair when OT entered room. Pt. requested to complete bilateral UE strength and paraffin. Mental Status/Objective Patient Orientation: Person, Place, Time, Situation Functional [place] Measure 0=Not Assessed/NA 4=Minimal Assistance 1=Total Assistance 5=Supervision or Setup 2=Maximal Assistance 6=Modified [place] 3=Moderate Assistance 7=Complete [place] ADL-Treatment Functional [place] Measure 0=Not Assessed/NA 4=Minimal Assistance 1=Total Assistance 5=Supervision or Setup 2=Maximal Assistance 6=Modified [place] 3=Moderate Assistance 7=Complete IndependenceIRFPAI Quality Coding Scale 6 Independent with activity with or without an assistive device 5 Patient requires set up or clean up by helper. Patient completes activity by themselves 4 Supervision or touching assist (CGA). [place] provide cues , steadying assist 3 The helper provides less than half the effort to complete the activity 2 The helper provides more than half the effort to complete the activity 1 Dependent. The helper does all the effort to complete an activity 7 Patient refused to complete or attempt activity 9 The patient did not perform the activity before the current illness or injury 88 Not attempted due to Medical conditions or safety concerns Pt. up in power chair. Is able to drive chair independently to therapy gym. OT applies paraffin to right hand for increased pain control/muscle relief. While this was on, OT began PROM/AROM/AAROM to left UE. Pt. is able to demonstrate approximately 80 degrees active flexion of left shoulder. However, pt. demonstrates consistent posture of shoulders rounded, with scapular winging. OT elicited active exercises in wrist extension/flexion, elbow extension/flexion, and shoulder flexion. Note significant shortening of bicep and pectoral muscles. Pt. reports tenderness with excessive stretching, and muscle releases. OT completed exercises on right UE after paraffin removed. Pt. demonstrates significant weakness in right UE. Poor coordination in fingers noted. Tightness in bicep noted. Gentle stretch completed to pectoral muscles. Pt. requested to use the bathroom. Transferred via sit-stand lift to toilet. All needs met in bathroom. Nursing assisted pt. after OT left bathroom. Education OT Patient Education: Correct positioning, Exercise program, Modified ADL techniques, Progress toward Goal/Update tx plan, Purpose of tx/functional activities, Reviewed precautions, Rehab process, Transfer techniques, Use of adapted equipment Teaching Recipient: Patient Teaching Methods: Demonstration, Discussion Response to Teaching: Verbalize Understanding, Return Demonstration OT Short Term Goals Short Term Goals Time Frame: Nov 17, 2016 Eating(FIM): 4 Grooming(FIM): 3 Upper Body Dressing(FIM): 3 Lower Body Dressing(FIM): 3 Toileting(FIM): 3 Toilet/Commode Transfer(FIM): 3 Shower Transfer(FIM): 3 Additional Short Term Goals: 2-Verbalize Understanding, 3-ImproveStrength/Fady 1=Demonstrate adherence to instructed precautions during ADL tasks. 2=Patient will verbalize/demonstrate understanding of assistive devices/ modifications for ADL. 3=Patient will improve strength/tolerance for activity to enable patient to perform ADL's. OT Usp Goals Usp Goals Time Frame: Dec 01, 2016 Eating (FIM): 5 Eating (QC): 5 Groomin Oral Hygiene (QC): 5 Bathing(FIM): 5 Shower/Bathe Self (QC): 5 Upper Body Dressing(FIM): 5 Upper Body Dressing (QC): 5 Lower Body Dressing(FIM): 5 Lower Body Dressing (QC): 5 On/Off Footwear (QC): 4 Toileting(FIM): 5 Toileting Hygiene (QC): 5 Toilet/Commode Transfer(FIM): 5 Toilet/Commode Transfer (QC): 5 Shower Transfer(FIM): 5 Additional Goals: 2-Verbalize Understanding, 3-ImproveStrength/Fady 1=Demonstrate adherence to instructed precautions during ADL tasks. 2=Patient will verbalize/demonstrate understanding of assistive devices/ modifications for ADL. 3=Patient will improve strength/tolerance for activity to enable patient to perform ADL's. OT Education/Plan Problem List/Assessment Assessment: Decreased Activ Tolerance, Decreased UE Strength, Dependent Transfers, Impaired Bed Mobility, Impaired Coordination, Impaired Funct Balance , Impaired I ADL's, Impaired Self-Care Skills, Restricted Funct UE ROM Pt would benefit from skilled OT to increase his independence in basic self care to allow him to safely return to his home to live alone and to decrease caregiver burden. Discharge Recommendations Plan/Recommendations: Continue POC Therapy D/C Recommendations: 24 hr Supervision Treatment Plan/Plan of Care Treatment,Training & Education: Yes Patient would benefit from OT for education, treatment and training to promote independence in ADL's, mobility, safety and/or upper extremity function for ADL' s. Plan of Care: ADL Retraining, Functional Mobility, Group Exercise/Act as Ind ( education, exercise, activity tolerance, functional activities, socialization), UE Funct Exercise/Act, UE Neuromus Re-Ed/Coord, W/C Management Training Treatment Duration: Dec 01, 2016 Frequency: At least 5-7 days/Wk (IRF) Estimated Hrs Per Day: 1.5 hours per day Agreement: Yes Rehab Potential: Fair Time/GCodes Start Time: 08:30 Stop Time: 09:30 Total Time Billed (hr/min): 60 Billed Treatment Time 1, FA x 45minutes, ADL x 15minutes JOANA ALCANTARA OT Dec 02, 2016 13:31
--- NOTE | 2016-12-02 14:30 | Physical Therapy Daily Note ---
PT Daily Note-Current Subjective Patient in bed pre tx, agrees to bed exercises, has no complaints of pain. Appearance Patient in bed post tx with nurse call, ronel, all needs met. Mental Status Patient Orientation: Normal For Age Transfers Functional [place] Measure 0=Not Assessed/NA 4=Minimal Assistance 1=Total Assistance 5=Supervision or Setup 2=Maximal Assistance 6=Modified [place] 3=Moderate Assistance 7=Complete IndependenceIRFPAI Quality Coding Scale 6 Independent with activity with or without an assistive device 5 Patient requires set up or clean up by helper. Patient completes activity by themselves 4 Supervision or touching assist (CGA). [place] provide cues , steadying assist 3 The helper provides less than half the effort to complete the activity 2 The helper provides more than half the effort to complete the activity 1 Dependent. The helper does all the effort to complete an activity 7 Patient refused to complete or attempt activity 9 The patient did not perform the activity before the current illness or injury 88 Not attempted due to Medical conditions or safety concerns Exercises Supine Ex: Ankle pumps, Quad Set, Glut sets, Heel Slides, Short Arc Quads, Straight leg raise, Hip abd/add Supine Reps: 20 Treatments functional strengthening PT Short Term Goals Short Term Goals Time Frame: Nov 10, 2016 Gait (FIM): 1 Gait Distance Comment: 10' Gait Level of Assist: 2 Gait Assistive Device: FWW, Walker Platform Wheelchair Distance: 150'x2 PT Residential Goals Coil Repair Technician Goals PT Coil Repair Technician Goals Time Frame: Nov 24, 2016 Transfers (B,C,W/C) (FIM): 4 Sit to Lying (QC): 3 Lying-Sitting on Side/Bed(QC): 3 Sit to Stand (QC): 3 Rollin Roll Left to Right (QC): 3 Chair/Vtu-pl-Qrkuh Xfer(QC): 3 Gait (FIM): 1 Distance: 20' Walk 10 feet (QC): 2 Gait Level of Assist: 2 Gait Assistive Device: FWW, Walker Platform Wheelchair (FIM): 6 Distance: 500' Wheelchair Level of Assist: 6 Wheel 50 feet with 2 turns (QC: 6 PT Plan Problem List Problem List: Activity Tolerance, Functional Strength, Safety, Balance, Gait, Transfer, Bed Mobility, ROM Treatment/Plan Treatment Plan: Continue Plan of Care Treatment Plan: Bed Mobility, Education, Functional Activity Fady, Functional Strength, Group Therapy, Gait, Safety, Therapeutic Exercise, Transfers Treatment Duration: Nov 24, 2016 Frequency: At least 5-7 days/Wk (IRF) Estimated Hrs Per Day: 2 hours per day Patient and/or Family Agrees t: Yes Safety Risks/Education Patient Education: Correct Positioning, Safety Issues Teaching Recipient: Patient Teaching Methods: Demonstration, Discussion Response to Teaching: Reinforcement Needed Time/GCodes Time In: 1400 Time Out: 1430 Total Billed Treatment Time: 30 Total Billed Treatment 1 visit EX 30' CATALINA RUBI PT Dec 02, 2016 14:30
--- NOTE | 2016-12-02 16:16 | Occupational Ther Daily Note ---
OT Current Status-Daily Note Subjective Pt. reports tenderness in bilateral biceps with deep pressure. No pain number given. Appearance Pt. in bed. Agrees to bilateral UE PROM. Mental Status/Objective Patient Orientation: Person, Place Functional [place] Measure 0=Not Assessed/NA 4=Minimal Assistance 1=Total Assistance 5=Supervision or Setup 2=Maximal Assistance 6=Modified [place] 3=Moderate Assistance 7=Complete [place] ADL-Treatment Functional [place] Measure 0=Not Assessed/NA 4=Minimal Assistance 1=Total Assistance 5=Supervision or Setup 2=Maximal Assistance 6=Modified [place] 3=Moderate Assistance 7=Complete IndependenceIRFPAI Quality Coding Scale 6 Independent with activity with or without an assistive device 5 Patient requires set up or clean up by helper. Patient completes activity by themselves 4 Supervision or touching assist (CGA). [place] provide cues , steadying assist 3 The helper provides less than half the effort to complete the activity 2 The helper provides more than half the effort to complete the activity 1 Dependent. The helper does all the effort to complete an activity 7 Patient refused to complete or attempt activity 9 The patient did not perform the activity before the current illness or injury 88 Not attempted due to Medical conditions or safety concerns Other Treatment Pt. supine in bed with HOB elevated. Agreed to bilateral UE ROM/stretch, as this has caused him some pain. Noted that pt. becomes resistive at times with muscle tightness, with prolonged stretch. Pt. states that he is not sure if this is tightness, or spasms. States that he is allowed to take 3 Valium, and may take his third later. Unable to get either UE into full elbow extension. However, with continued prolonged stretch and intermittent rest breaks, able to increase overall range. Completed gentle massage to biceps and deltoids, in painful areas. Pt. states that he feels that one reason he may have tenderness , is that his muscles never get fully massaged. Educated him on spinal precautions and surgical precautions regarding massaging fresh surgery site. Pt. verbalizes understanding. Ordered dinner for pt. before leaving room. All needs met. Education OT Patient Education: Correct positioning, Exercise program, Modified ADL techniques, Progress toward Goal/Update tx plan, Purpose of tx/functional activities, Reviewed precautions, Rehab process, Transfer techniques Teaching Recipient: Patient Teaching Methods: Demonstration, Discussion Response to Teaching: Verbalize Understanding, Return Demonstration OT Short Term Goals Short Term Goals Time Frame: Nov 17, 2016 Eating(FIM): 4 Grooming(FIM): 3 Upper Body Dressing(FIM): 3 Lower Body Dressing(FIM): 3 Toileting(FIM): 3 Toilet/Commode Transfer(FIM): 3 Shower Transfer(FIM): 3 Additional Short Term Goals: 2-Verbalize Understanding, 3-ImproveStrength/Fady 1=Demonstrate adherence to instructed precautions during ADL tasks. 2=Patient will verbalize/demonstrate understanding of assistive devices/ modifications for ADL. 3=Patient will improve strength/tolerance for activity to enable patient to perform ADL's. OT Prison Goals Global Supply Chain Director Goals Time Frame: Dec 01, 2016 Eating (FIM): 5 Eating (QC): 5 Groomin Oral Hygiene (QC): 5 Bathing(FIM): 5 Shower/Bathe Self (QC): 5 Upper Body Dressing(FIM): 5 Upper Body Dressing (QC): 5 Lower Body Dressing(FIM): 5 Lower Body Dressing (QC): 5 On/Off Footwear (QC): 4 Toileting(FIM): 5 Toileting Hygiene (QC): 5 Toilet/Commode Transfer(FIM): 5 Toilet/Commode Transfer (QC): 5 Shower Transfer(FIM): 5 Additional Goals: 2-Verbalize Understanding, 3-ImproveStrength/Fady 1=Demonstrate adherence to instructed precautions during ADL tasks. 2=Patient will verbalize/demonstrate understanding of assistive devices/ modifications for ADL. 3=Patient will improve strength/tolerance for activity to enable patient to perform ADL's. OT Education/Plan Problem List/Assessment Assessment: Decreased Activ Tolerance, Decreased UE Strength, Dependent Transfers, Impaired Bed Mobility, Impaired Funct Balance, Impaired I ADL's, Impaired Self-Care Skills, Restricted Funct UE ROM Pt would benefit from skilled OT to increase his independence in basic self care to allow him to safely return to his home to live alone and to decrease caregiver burden. Discharge Recommendations Plan/Recommendations: Continue POC Therapy D/C Recommendations: Home w/ Family Support, Occupational Therapy Home Care, Scheduled Assistance Treatment Plan/Plan of Care Treatment,Training & Education: Yes Patient would benefit from OT for education, treatment and training to promote independence in ADL's, mobility, safety and/or upper extremity function for ADL' s. Plan of Care: ADL Retraining, Functional Mobility, Group Exercise/Act as Ind ( education, exercise, activity tolerance, functional activities, socialization), UE Funct Exercise/Act, UE Neuromus Re-Ed/Coord, W/C Management Training Treatment Duration: Dec 01, 2016 Frequency: At least 5-7 days/Wk (IRF) Estimated Hrs Per Day: 1.5 hours per day Agreement: Yes Rehab Potential: Fair Time/GCodes Start Time: 14:45 Stop Time: 15:15 Total Time Billed (hr/min): 30 Billed Treatment Time 1, EX x 2 JOANA ALCANTARA OT Dec 02, 2016 16:16
[2016-12-02 18:15] VITALS: BP 127/89
[2016-12-02] MEDS: IRBESARTAN 150 MG (AVAPRO) TAB PO SCH (20:09)
--- NOTE | 2016-12-02 21:16 | PM & R (SOAP) Progress Note ---
Subjective Time Seen by Provider: 21:10 Subjective/Events-last exam Patient was seen in his room this evening Continues to improve Patient doesnt care for hospital food and Accuchecks vary when he skips meals Objective Exam Last Set of Vital Signs Vital Signs Date Time Temp Pulse Resp B/P (MAP) Pulse Ox O2 Delivery O2 Flow Rate FiO2 12/02/16 18:15 97.3 99 16 127/89 96 Room Air Capillary Refill : I&O Intake and Output 12/02/16 00:00 Intake Total 1150 ml Output Total 500 ml Balance 650 ml Intake Oral 1150 ml Output Urine Total 500 ml # Voids 4 # Bowel Movements 1 General: Alert, Oriented X3, Cooperative, No Acute Distress HEENT: Atraumatic, PERRLA, EOMI, Mucous Memb Moist/[place] Neck: Supple, Other (inciasion healing well C Collar in place) Lungs: Clear to Auscultation Heart: Regular Rate Abdomen: Normal Bowel Sounds Extremities: Other (trace edema rt hand) Skin: Other (rt heel wrapped) Neuro: Other (2-3 strength rt UE Numbness rt hand) Results Lab Laboratory Tests 11/30/16 06:55: Glucometer 135H 11/30/16 16:57: Glucometer 199H 12/01/16 05:35: Glucometer 141H 12/01/16 16:03: Glucometer 160H 12/02/16 05:57: Glucometer 129H 12/02/16 17:37: Glucometer 235H Assessment/Plan Assessment Cervical spine spondylosis with myelopathy s/p decompression DR Atkinson affecting U Limbs more then Lower with strength gradually improving but remaining with impaired interventional tech strength affecting ADL skills Dysphagia improved diet advanced- to regular consistency discussed with RN AMY on cpap HTN controlled DM with episode of hypoglycemia Dr juarez has adjusted insulin -improved HLP Intolerance to oxy-disturbed sleep Pressure sore rt heel-improving DJD Left Knee DJD left Hip S/P rt HIP relacement DR Cantu remote Trochanteric bursitis left hip s/p Injection DR Riley Plan Continue PT/OT/Pain management F/U with Hospitalist and DR Atkinson as per their schedule Trend Accucheks and adjust insulin as needed Pain management Changed meds-improved Wound care reconsult to check rt heel -see orders-done as per above Patient doing better with switch to hydrocodone for pain-less side effects report Discussed discharge options.with SW. Check Xray left hip-done Consult ortho re possible injection for pain control-done Team Conference held earlier today--See report for full functional update and POC and ELOS Pain management Trial of Lidoderm patch-in progress. Continue wit paraffin baths for hands with OT as indicated JOSEY SALINAS MD Dec 02, 2016 21:16
[2016-12-03] MEDS: HYDROcodone/APAP 10 MG/325 MG (LORTAB) TAB PO PRN ×6 (01:33→23:53)
[2016-12-03 05:10] VITALS: BP 124/83
[2016-12-03] MEDS: MULTIVIT W/MINERALS TAB (THERAGRAN M) PO SCH (06:45)
[2016-12-03] MEDS: metFORMIN 500 MG (GLUCOPHAGE) TAB PO SCH ×2 (06:45→17:03)
[2016-12-03] MEDS: LIDOCAINE (LIDODERM) 5% PATCH TOP SCH (07:24)
[2016-12-03] MEDS: inSUlin (REGULAR) HUMAN 1 UNIT/0.01 ML (CHARGE PER UNIT) SC SCH ×3 (07:24→19:25)
[2016-12-03] MEDS: amLODIPine 5 MG (NORVASC) TAB PO SCH (07:24)
[2016-12-03] MEDS: SENNA W/DOCUSATE (SENOKOT S) TABLET PO SCH ×2 (07:25→20:20)
[2016-12-03] MEDS: HYDROCHLOROTHIAZIDE 25 MG (HCTZ) TAB PO SCH (07:25)
--- NOTE | 2016-12-03 07:59 | PM & R (SOAP) Progress Note ---
Subjective Time Seen by Provider: 07:45 Subjective/Events-last exam Patient was seen in his room this AM Patient mod assist for bathing and upper body dressing Acuucchecks vary from low 100s to low 200s.Patient indicates that he has been on Insulin for more then 10 years. Objective Exam Last Set of Vital Signs Vital Signs Date Time Temp Pulse Resp B/P (MAP) Pulse Ox O2 Delivery O2 Flow Rate FiO2 12/03/16 05:10 97.3 77 18 124/83 98 Room Air Capillary Refill : I&O Intake and Output 12/03/16 00:00 Intake Total 2200 ml Balance 2200 ml Intake Oral 2200 ml # Voids 10 General: Alert, Oriented X3, Cooperative, No Acute Distress HEENT: Atraumatic, PERRLA, EOMI, Mucous Memb Moist/[place] Neck: Supple, Other (inciasion healing well C Collar in place) Lungs: Clear to Auscultation Heart: Regular Rate Abdomen: Normal Bowel Sounds Extremities: Other (trace edema rt hand) Skin: Other (rt heel wrapped) Neuro: Other (2-3 strength rt UE Numbness rt hand) Results Lab Laboratory Tests 11/30/16 16:57: Glucometer 199H 12/01/16 05:35: Glucometer 141H 12/01/16 16:03: Glucometer 160H 12/02/16 05:57: Glucometer 129H 12/02/16 17:37: Glucometer 235H 12/03/16 06:22: Glucometer 122H Assessment/Plan Assessment Cervical spine spondylosis with myelopathy s/p decompression DR Atkinson affecting U Limbs more then Lower with strength gradually improving but remaining with 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 affecting ADL skills Dysphagia improved diet advanced- to regular consistency discussed with RN AMY on cpap HTN controlled DM with episode of hypoglycemia Dr juarez has adjusted insulin -improved HLP Intolerance to oxy-disturbed sleep Pressure sore rt heel-improving DJD Left Knee DJD left Hip S/P rt HIP relacement DR Cantu remote Trochanteric bursitis left hip s/p Injection DR Riley Plan Continue PT/OT/Pain management F/U with Hospitalist and DR Atkinson as per their schedule Trend Accucheks and adjust insulin as needed Pain management Changed meds-improved Wound care reconsult to check rt heel -see orders-done as per above Patient doing better with switch to hydrocodone for pain-less side effects report Discussed discharge options.with SW. Check Xray left hip-done Consult ortho re possible injection for pain control-done Team Conference held yesterday--See report for full functional update and POC and ELOS Pain management Trial of Lidoderm patch-in progress. Continue wit paraffin baths for hands with OT as indicated Recheck Labs See orders JOSEY SALINAS MD Dec 03, 2016 07:59
[2016-12-03] MEDS: POLYETHYLENE GLYCOL 17 GM (MIRALAX) PACK PO SCH ×2 (08:07→20:21)
[2016-12-03] MEDS: LACTULOSE SYRUP 10GM/15ML (ENULOSE) 30ML UDC PO SCH ×2 (08:12→20:20)
[2016-12-03] MEDS: MICONAZOLE 2% POWDER (DESENEX AF) 90 GM TOP SCH ×2 (09:28→20:21)
[2016-12-03] MEDS: MENTHOL/ZINC OXIDE (CALMOSEPTINE) 113 GM TUBE TOP SCH ×2 (09:28→20:21)
[2016-12-03] MEDS: A & D OINT 60 GM TUBE TOP SCH (09:31)
[2016-12-03] MEDS: DIAZEPAM 5 MG (VALIUM) TABLET PO PRN (10:17)
--- NOTE | 2016-12-03 10:55 | Physical Therapy Daily Note ---
PT Daily Note-Current Subjective Patient in wheelchair pre tx, agrees to PT, has pain of 7-8/10 in right shoulder and left hip, nurse gave him pain meds. Appearance Patient in power chair post tx Mental Status Patient Orientation: Normal For Age cervical collar Transfers Functional [place] Measure 0=Not Assessed/NA 4=Minimal Assistance 1=Total Assistance 5=Supervision or Setup 2=Maximal Assistance 6=Modified [place] 3=Moderate Assistance 7=Complete IndependenceIRFPAI Quality Coding Scale 6 Independent with activity with or without an assistive device 5 Patient requires set up or clean up by helper. Patient completes activity by themselves 4 Supervision or touching assist (CGA). [place] provide cues , steadying assist 3 The helper provides less than half the effort to complete the activity 2 The helper provides more than half the effort to complete the activity 1 Dependent. The helper does all the effort to complete an activity 7 Patient refused to complete or attempt activity 9 The patient did not perform the activity before the current illness or injury 88 Not attempted due to Medical conditions or safety concerns Transfers (B, C, W/C) (FIM): 3 Scootin Rollin Supine to/from Sit: 3 Sit to/from Stand: 4 Bed to/from Chair: 4 Patient practiced bed mobility and supine to sit from a flat position. Patient had a lot of trouble with this when not using a hospital bed and refused to perform it from the right side due to right shoulder pain. He gets very irritated following specific directions. His ex- will need training with this before he leaves. Gait Training Gait (FIM): 4 Distance: 150'x2 Gait Level of Assist: 4 Gait Persons Needed: 1 bilateral platform walker, slow, needs assist with guiding the walker Treatments transfers, ambulation, bed mobility training Assessment Current Status: Fair Progress improving ambulation and transfers PT Short Term Goals Short Term Goals Time Frame: Nov 10, 2016 Gait (FIM): 1 Gait Distance Comment: 10' Gait Level of Assist: 2 Gait Assistive Device: FWW, Walker Platform Wheelchair Distance: 150'x2 PT Air Intelligence Specialist Goals Halfway Goals PT Halfway Goals Time Frame: Nov 24, 2016 Transfers (B,C,W/C) (FIM): 4 Sit to Lying (QC): 3 Lying-Sitting on Side/Bed(QC): 3 Sit to Stand (QC): 3 Rollin Roll Left to Right (QC): 3 Chair/[id number]-Vwmjx Xfer(QC): 3 Gait (FIM): 1 Distance: 20' Walk 10 feet (QC): 2 Gait Level of Assist: 2 Gait Assistive Device: FWW, Walker Platform Wheelchair (FIM): 6 Distance: 500' Wheelchair Level of Assist: 6 Wheel 50 feet with 2 turns (QC: 6 PT Plan Problem List Problem List: Activity Tolerance, Functional Strength, Safety, Balance, Gait, Transfer, Bed Mobility, ROM Treatment/Plan Treatment Plan: Continue Plan of Care Treatment Plan: Bed Mobility, Education, Functional Activity Fady, Functional Strength, Group Therapy, Gait, Safety, Therapeutic Exercise, Transfers Treatment Duration: Nov 24, 2016 Frequency: At least 5-7 days/Wk (IRF) Estimated Hrs Per Day: 2 hours per day Patient and/or Family Agrees t: Yes Safety Risks/Education Patient Education: Gait Training, Transfer Techniques, Correct Positioning, Safety Issues Teaching Recipient: Patient Teaching Methods: Demonstration, Discussion Response to Teaching: Reinforcement Needed Time/GCodes Time In: 1000 Time Out: 1100 Total Billed Treatment Time: 60 Total Billed Treatment 1 visit FA 30' GT 30' CATALINA RUBI PT Dec 03, 2016 10:55
--- NOTE | 2016-12-03 11:57 | Occupational Ther Daily Note ---
OT Current Status-Daily Note Subjective Pt seen in room, up in bed, agreeable to OT. No pain mentioned. Said his arm felt looser after OT yesterday Appearance Alert, cooperative, flat affect Mental Status/Objective Functional [place] Measure 0=Not Assessed/NA 4=Minimal Assistance 1=Total Assistance 5=Supervision or Setup 2=Maximal Assistance 6=Modified [place] 3=Moderate Assistance 7=Complete [place] ADL-Treatment Pt wanted to shave and brush teeth. Transfer to EOB was SBA but HOB was elevated. Mod assist to doff and don t-shirt. Needs help to get shirt over head. Mod assist lower body dressing. Worked on reaching forward to put pants on over feet. Stood with FWW, min A with bed elevated, for pants to be pulled up. Max assist socks and shoes. Transferred per sit to stand lift on BS, now in bathroom over toilet. Dependant toileting for clothing management and hygiene. Transferred per lift to power chair. Pt propelled chair to bathroom to shave and wash hair. Min assist grooming - can wash face with setup (including R side), shave with min assist, brush teeth with setup but can't brush hair. props L arm on countertop, uses universal cuff. Pt took himself back to room, all needs met. Functional [place] Measure 0=Not Assessed/NA 4=Minimal Assistance 1=Total Assistance 5=Supervision or Setup 2=Maximal Assistance 6=Modified [place] 3=Moderate Assistance 7=Complete IndependenceIRFPAI Quality Coding Scale 6 Independent with activity with or without an assistive device 5 Patient requires set up or clean up by helper. Patient completes activity by themselves 4 Supervision or touching assist (CGA). [place] provide cues , steadying assist 3 The helper provides less than half the effort to complete the activity 2 The helper provides more than half the effort to complete the activity 1 Dependent. The helper does all the effort to complete an activity 7 Patient refused to complete or attempt activity 9 The patient did not perform the activity before the current illness or injury 88 Not attempted due to Medical conditions or safety concerns Grooming (FIM): 4 Upper Body (FIM): 3 Lower Body Dressing (FIM): 3 Toileting (FIM): 1 Toilet/Commode Transfer (FIM): 1 OT Short Term Goals Short Term Goals Time Frame: Nov 17, 2016 Eating(FIM): 4 Grooming(FIM): 3 Upper Body Dressing(FIM): 3 Lower Body Dressing(FIM): 3 Toileting(FIM): 3 Toilet/Commode Transfer(FIM): 3 Shower Transfer(FIM): 3 Additional Short Term Goals: 2-Verbalize Understanding, 3-ImproveStrength/Fady 1=Demonstrate adherence to instructed precautions during ADL tasks. 2=Patient will verbalize/demonstrate understanding of assistive devices/ modifications for ADL. 3=Patient will improve strength/tolerance for activity to enable patient to perform ADL's. OT Mcfp Goals Blade Groover Goals Time Frame: Dec 01, 2016 Eating (FIM): 5 Eating (QC): 5 Groomin Oral Hygiene (QC): 5 Bathing(FIM): 5 Shower/Bathe Self (QC): 5 Upper Body Dressing(FIM): 5 Upper Body Dressing (QC): 5 Lower Body Dressing(FIM): 5 Lower Body Dressing (QC): 5 On/Off Footwear (QC): 4 Toileting(FIM): 5 Toileting Hygiene (QC): 5 Toilet/Commode Transfer(FIM): 5 Toilet/Commode Transfer (QC): 5 Shower Transfer(FIM): 5 Additional Goals: 2-Verbalize Understanding, 3-ImproveStrength/Fady 1=Demonstrate adherence to instructed precautions during ADL tasks. 2=Patient will verbalize/demonstrate understanding of assistive devices/ modifications for ADL. 3=Patient will improve strength/tolerance for activity to enable patient to perform ADL's. OT Education/Plan Problem List/Assessment Pt would benefit from skilled OT to increase his independence in basic self care to allow him to safely return to his home to live alone and to decrease caregiver burden. Discharge Recommendations Plan/Recommendations: Continue POC Treatment Plan/Plan of Care Patient would benefit from OT for education, treatment and training to promote independence in ADL's, mobility, safety and/or upper extremity function for ADL' s. Plan of Care: ADL Retraining, Functional Mobility, Group Exercise/Act as Ind ( education, exercise, activity tolerance, functional activities, socialization), UE Funct Exercise/Act, UE Neuromus Re-Ed/Coord, W/C Management Training Treatment Duration: Dec 01, 2016 Frequency: At least 5-7 days/Wk (IRF) Estimated Hrs Per Day: 1.5 hours per day Agreement: Yes Rehab Potential: Fair Time/GCodes Start Time: 08:30 Stop Time: 09:30 Total Time Billed (hr/min): 60 Billed Treatment Time visit, 60 minutes ADL THAI HOOVER OT Dec 03, 2016 11:57
--- NOTE | 2016-12-03 14:36 | Occupational Ther Daily Note ---
OT Current Status-Daily Note Subjective Pt seen in room, up in bed, agreeable to OT. Appearance Alert, cooperative, flat affect Mental Status/Objective Functional [place] Measure 0=Not Assessed/NA 4=Minimal Assistance 1=Total Assistance 5=Supervision or Setup 2=Maximal Assistance 6=Modified [place] 3=Moderate Assistance 7=Complete [place] ADL-Treatment Functional [place] Measure 0=Not Assessed/NA 4=Minimal Assistance 1=Total Assistance 5=Supervision or Setup 2=Maximal Assistance 6=Modified [place] 3=Moderate Assistance 7=Complete IndependenceIRFPAI Quality Coding Scale 6 Independent with activity with or without an assistive device 5 Patient requires set up or clean up by helper. Patient completes activity by themselves 4 Supervision or touching assist (CGA). [place] provide cues , steadying assist 3 The helper provides less than half the effort to complete the activity 2 The helper provides more than half the effort to complete the activity 1 Dependent. The helper does all the effort to complete an activity 7 Patient refused to complete or attempt activity 9 The patient did not perform the activity before the current illness or injury 88 Not attempted due to Medical conditions or safety concerns Other Treatment Skilled facilitation techniques used to increase AROM and strength R UE. Able to apply manual resistance, demonstrating 3+/5 grade for elbow flex, elbow ext, pron/sup, wrist flex and ext. Able to flex R middle, ring and little fingers to within about 3/4 incl of palm and able to hold this position once placed there. 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 pt left up in bed, all needs met, present. Education OT Patient Education: Exercise program (facilitation), Progress toward Goal/ Update tx plan Teaching Recipient: Patient Teaching Methods: Discussion Response to Teaching: Verbalize Understanding OT Short Term Goals Short Term Goals Time Frame: Nov 17, 2016 Eating(FIM): 4 Grooming(FIM): 3 Upper Body Dressing(FIM): 3 Lower Body Dressing(FIM): 3 Toileting(FIM): 3 Toilet/Commode Transfer(FIM): 3 Shower Transfer(FIM): 3 Additional Short Term Goals: 2-Verbalize Understanding, 3-ImproveStrength/Fady 1=Demonstrate adherence to instructed precautions during ADL tasks. 2=Patient will verbalize/demonstrate understanding of assistive devices/ modifications for ADL. 3=Patient will improve strength/tolerance for activity to enable patient to perform ADL's. OT Usp Goals Aids Social Worker Goals Time Frame: Dec 01, 2016 Eating (FIM): 5 Eating (QC): 5 Groomin Oral Hygiene (QC): 5 Bathing(FIM): 5 Shower/Bathe Self (QC): 5 Upper Body Dressing(FIM): 5 Upper Body Dressing (QC): 5 Lower Body Dressing(FIM): 5 Lower Body Dressing (QC): 5 On/Off Footwear (QC): 4 Toileting(FIM): 5 Toileting Hygiene (QC): 5 Toilet/Commode Transfer(FIM): 5 Toilet/Commode Transfer (QC): 5 Shower Transfer(FIM): 5 Additional Goals: 2-Verbalize Understanding, 3-ImproveStrength/Fady 1=Demonstrate adherence to instructed precautions during ADL tasks. 2=Patient will verbalize/demonstrate understanding of assistive devices/ modifications for ADL. 3=Patient will improve strength/tolerance for activity to enable patient to perform ADL's. OT Education/Plan Problem List/Assessment Pt would benefit from skilled OT to increase his independence in basic self care to allow him to safely return to his home to live alone and to decrease caregiver burden. Discharge Recommendations Plan/Recommendations: Continue POC Treatment Plan/Plan of Care Patient would benefit from OT for education, treatment and training to promote independence in ADL's, mobility, safety and/or upper extremity function for ADL' s. Plan of Care: ADL Retraining, Functional Mobility, Group Exercise/Act as Ind ( education, exercise, activity tolerance, functional activities, socialization), UE Funct Exercise/Act, UE Neuromus Re-Ed/Coord, W/C Management Training Treatment Duration: Dec 01, 2016 Frequency: At least 5-7 days/Wk (IRF) Estimated Hrs Per Day: 1.5 hours per day Agreement: Yes Rehab Potential: Fair Time/GCodes Start Time: 13:30 Stop Time: 14:00 Total Time Billed (hr/min): 30 Billed Treatment Time visit, neuromotor 30 min THAI HOOVER OT Dec 03, 2016 14:36
--- NOTE | 2016-12-03 15:34 | Physical Therapy Daily Note ---
PT Daily Note-Current Subjective agrees to PT. Transfers Functional [place] Measure 0=Not Assessed/NA 4=Minimal Assistance 1=Total Assistance 5=Supervision or Setup 2=Maximal Assistance 6=Modified [place] 3=Moderate Assistance 7=Complete IndependenceIRFPAI Quality Coding Scale 6 Independent with activity with or without an assistive device 5 Patient requires set up or clean up by helper. Patient completes activity by themselves 4 Supervision or touching assist (CGA). [place] provide cues , steadying assist 3 The helper provides less than half the effort to complete the activity 2 The helper provides more than half the effort to complete the activity 1 Dependent. The helper does all the effort to complete an activity 7 Patient refused to complete or attempt activity 9 The patient did not perform the activity before the current illness or injury 88 Not attempted due to Medical conditions or safety concerns Treatments Gt with FWW bilateral platforms x 50 ft with CGA followed by the wheelchair. Gt is slow and unsteady and he tends to drift to the right with occas stepping out of the walker to the right or stepping on the ski, difficulty correcting even with verbal cues. Seated B LE ther ex x 15 for AP, LAQ, hip flexion and hip abduction. Sit to stand lift transfer back to bed. Pt positioned in bed post treatment. Assessment Current Status: Good Progress Audible crepitus left hip during gait. narrow KRISTINE and unsteady. Unable to transfer or ambulate without outside assist. PT Short Term Goals Short Term Goals Time Frame: Nov 10, 2016 Gait (FIM): 1 Gait Distance Comment: 10' Gait Level of Assist: 2 Gait Assistive Device: FWW, Walker Platform Wheelchair Distance: 150'x2 PT Retirement Goals Banquet Cook Goals PT Banquet Cook Goals Time Frame: Nov 24, 2016 Transfers (B,C,W/C) (FIM): 4 Sit to Lying (QC): 3 Lying-Sitting on Side/Bed(QC): 3 Sit to Stand (QC): 3 Rollin Roll Left to Right (QC): 3 Chair/[id number]-Btfkd Xfer(QC): 3 Gait (FIM): 1 Distance: 20' Walk 10 feet (QC): 2 Gait Level of Assist: 2 Gait Assistive Device: FWW, Walker Platform Wheelchair (FIM): 6 Distance: 500' Wheelchair Level of Assist: 6 Wheel 50 feet with 2 turns (QC: 6 PT Plan Problem List Problem List: Activity Tolerance, Functional Strength Treatment/Plan Treatment Plan: Continue Plan of Care Treatment Plan: Bed Mobility, Education, Functional Activity Fady, Functional Strength, Group Therapy, Gait, Safety, Therapeutic Exercise, Transfers Treatment Duration: Nov 24, 2016 Frequency: At least 5-7 days/Wk (IRF) Estimated Hrs Per Day: 2 hours per day Patient and/or Family Agrees t: Yes Time/GCodes Time In: 1455 Time Out: 1525 Total Billed Treatment Time: 30 Total Billed Treatment visit GT 15 EX 15 PREMA JURADO PT Dec 03, 2016 15:34
[2016-12-03 18:03] VITALS: BP 121/79
[2016-12-03] MEDS: IRBESARTAN 150 MG (AVAPRO) TAB PO SCH (20:20)
[2016-12-04] MEDS: DIAZEPAM 5 MG (VALIUM) TABLET PO PRN ×2 (02:43→21:21)
[2016-12-04] MEDS: HYDROcodone/APAP 10 MG/325 MG (LORTAB) TAB PO PRN ×5 (04:15→23:22)
[2016-12-04 04:53] LABS: BASOPHILS # (AUTO) 0.1 10^3/uL (0.0-0.1); BASOPHILS % (AUTO) 1 % (0-10); EOSINOPHILS # (AUTO) 0.3 10^3/uL (0.0-0.3); EOSINOPHILS % (AUTO) 6 % (0-10); LYMPHOCYTES # (AUTO) 1.8 X 10^3 (1.0-4.0); LYMPHOCYTES % (AUTO) 31 % (12-44); MEAN CORPUSCULAR HEMOGLOBIN 29 PG (25-34); MEAN CORPUSCULAR HGB CONC 33 G/DL (32-36); MEAN CORPUSCULAR VOLUME 90 FL (80-99); MEAN PLATELET VOLUME 9.3 FL (7.4-10.4); MONOCYTES # (AUTO) 0.8 X 10^3 (0.0-1.0); MONOCYTES % (AUTO) 13 % (0-12); NEUTROPHILS # (AUTO) 2.9 X 10^3 (1.8-7.8); NEUTROPHILS % (AUTO) 50 % (42-75); PLATELET COUNT 313 10^3/uL (130-400); RED BLOOD COUNT 4.21 10^6/uL (4.35-5.85); RED CELL DISTRIBUTION WIDTH 14.4 % (10.0-14.5); WHITE BLOOD COUNT 5.8 10^3/uL (4.3-11.0)
[2016-12-04 05:15] LABS: ALANINE AMINOTRANSFERASE 16 U/L (0-55); ALBUMIN 3.5 GM/DL (3.2-4.5); ANION GAP 17 MMOL/L (5-14); ASPARTATE AMINO TRANSFERASE 13 U/L (5-34); BILIRUBIN,TOTAL 0.5 MG/DL (0.1-1.0); BLOOD UREA NITROGEN 12 MG/DL (7-18); BUN/CREATININE RATIO 21; CALCIUM 9.2 MG/DL (8.5-10.1); CARBON DIOXIDE 20 MMOL/L (21-32); CHLORIDE 104 MMOL/L (98-107); CREATININE SERUM 0.56 MG/DL (0.60-1.30); GFR ESTIMATED > 60; GLUCOSE 85 MG/DL (70-105); POTASSIUM 3.1 MMOL/L (3.6-5.0); SODIUM 141 MMOL/L (135-145); TOTAL PROTEIN 6.3 GM/DL (6.4-8.2)
[2016-12-04 05:22] VITALS: BP 123/74
[2016-12-04] MEDS: MULTIVIT W/MINERALS TAB (THERAGRAN M) PO SCH (06:41)
[2016-12-04] MEDS: metFORMIN 500 MG (GLUCOPHAGE) TAB PO SCH ×2 (06:41→18:37)
[2016-12-04] MEDS: inSUlin (REGULAR) HUMAN 1 UNIT/0.01 ML (CHARGE PER UNIT) SC SCH ×3 (06:41→15:09)
[2016-12-04] MEDS: SENNA W/DOCUSATE (SENOKOT S) TABLET PO SCH ×2 (08:21→21:21)
[2016-12-04] MEDS: HYDROCHLOROTHIAZIDE 25 MG (HCTZ) TAB PO SCH (08:21)
[2016-12-04] MEDS: amLODIPine 5 MG (NORVASC) TAB PO SCH (08:21)
[2016-12-04] MEDS: MENTHOL/ZINC OXIDE (CALMOSEPTINE) 113 GM TUBE TOP SCH ×2 (08:22→21:22)
[2016-12-04] MEDS: MICONAZOLE 2% POWDER (DESENEX AF) 90 GM TOP SCH ×2 (08:22→21:21)
[2016-12-04] MEDS: A & D OINT 60 GM TUBE TOP SCH (08:22)
[2016-12-04] MEDS: POLYETHYLENE GLYCOL 17 GM (MIRALAX) PACK PO SCH ×2 (08:26→21:21)
[2016-12-04] MEDS: LACTULOSE SYRUP 10GM/15ML (ENULOSE) 30ML UDC PO SCH ×2 (08:26→21:21)
[2016-12-04] MEDS: LIDOCAINE (LIDODERM) 5% PATCH TOP SCH (08:28)
--- NOTE | 2016-12-04 08:48 | PM & R (SOAP) Progress Note ---
Subjective Time Seen by Provider: 07:30 Subjective/Events-last exam Patient was seen in his room this AM Todays labs noted K Low on HCTZ will add K supplement see orders.Patient Independent with Powerchair mobility Objective Exam Last Set of Vital Signs Vital Signs Date Time Temp Pulse Resp B/P (MAP) Pulse Ox O2 Delivery O2 Flow Rate FiO2 12/04/16 05:22 96.6 82 14 123/74 96 Room Air Capillary Refill : I&O Intake and Output 12/04/16 00:00 Intake Total 1500 ml Balance 1500 ml Intake Oral 1500 ml # Voids 10 General: Alert, Oriented X3, Cooperative, No Acute Distress HEENT: Atraumatic, PERRLA, EOMI, Mucous Memb Moist/[place] Neck: Supple, Other (inciasion healing well C Collar in place) Lungs: Clear to Auscultation Heart: Regular Rate Abdomen: Normal Bowel Sounds Extremities: Other (trace edema rt hand) Skin: Other (rt heel wrapped) Neuro: Other (2-3 strength rt UE Numbness rt hand) Results Lab Laboratory Tests 12/01/16 16:03: Glucometer 160H 12/02/16 05:57: Glucometer 129H 12/02/16 17:37: Glucometer 235H 12/03/16 06:22: Glucometer 122H 12/03/16 15:56: Glucometer 231H 12/04/16 04:10: White Blood Count 5.8, Red Blood Count 4.21L, Hemoglobin 12.3L, Hematocrit 38L, Mean Corpuscular Volume 90, Mean Corpuscular Hemoglobin 29, Mean Corpuscular Hemoglobin Concent 33, Red Cell Distribution Width 14.4, Platelet Count 313, Mean Platelet Volume 9.3, Neutrophils (%) (Auto) 50, Lymphocytes (%) (Auto) 31, Monocytes (%) (Auto) 13H, Eosinophils (%) (Auto) 6, Basophils (%) (Auto) 1, Neutrophils # (Auto) 2.9, Lymphocytes # (Auto) 1.8, Monocytes # (Auto) 0.8, Eosinophils # (Auto) 0.3, Basophils # (Auto) 0.1, Sodium Level 141, Potassium Level 3.1L, Chloride Level 104, Carbon Dioxide Level 20L, Anion Gap 17H, Blood Urea Nitrogen 12, Creatinine 0.56L, Estimat Glomerular Filtration Rate > 60, BUN /Creatinine Ratio 21, Glucose Level 85, Calcium Level 9.2, Total Bilirubin 0.5, Aspartate Amino Transf (AST/SGOT) 13, Alanine Aminotransferase (ALT/SGPT) 16, Alkaline Phosphatase 70, Total Protein 6.3L, Albumin 3.5 Assessment/Plan Assessment Cervical spine spondylosis with myelopathy s/p decompression DR Atkinson affecting U Limbs more then Lower with strength gradually improving but remaining with 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 affecting 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 skills Dysphagia improved diet advanced- to regular consistency discussed with RN AMY on cpap HTN controlled DM with episode of hypoglycemia Dr juarez has adjusted insulin -improved HLP Intolerance to oxy-disturbed sleep Pressure sore rt heel-improving DJD Left Knee DJD left Hip S/P rt HIP relacement DR Cantu remote Trochanteric bursitis left hip s/p Injection DR Riley Hypokalemia Plan Continue PT/OT/Pain management F/U with Hospitalist and DR Atkinson as per their schedule Trend Accucheks and adjust insulin as needed Pain management Changed meds-improved Wound care reconsult to check rt heel -see orders-done as per above Patient doing better with switch to hydrocodone for pain-less side effects report Discussed discharge options.with SW. Check Xray left hip-done Consult ortho re possible injection for pain control-done Team Conference held 12-02-16-See report for full functional update and POC and ELOS Pain management Trial of Lidoderm patch-in progress. Continue wit paraffin baths for hands with OT as indicated Rechecked Labs K supplement ordered Reconference next week JOSEY SALINAS MD Dec 04, 2016 08:48
[2016-12-04] MEDS ORDERED: FUROSEMIDE 20 MG (LASIX) TAB PO SCH (09:00)
--- NOTE | 2016-12-04 11:11 | Occupational Ther Daily Note ---
OT Current Status-Daily Note Subjective Pt seen in room, up in power chair, agreeable to OT. Pt would like to work on toothbrushing and then his UEs. No pain mentioned Appearance Alert, cooperative, flat affect Mental Status/Objective Functional [place] Measure 0=Not Assessed/NA 4=Minimal Assistance 1=Total Assistance 5=Supervision or Setup 2=Maximal Assistance 6=Modified [place] 3=Moderate Assistance 7=Complete [place] ADL-Treatment Pt took himself to accessible bathroom per power chair. He was able to open door with lever doorknob and push it to go into the bathroom himself but he would not be able to open the door himself to leave the room. With L arm propped up on countertop, he thoroughly brushed teeth, using universal cuff. he could reposition the toothbrush as needed by biting it. He also rinsed his mouth with setup and wiped off his mouth. Functional [place] Measure 0=Not Assessed/NA 4=Minimal Assistance 1=Total Assistance 5=Supervision or Setup 2=Maximal Assistance 6=Modified [place] 3=Moderate Assistance 7=Complete IndependenceIRFPAI Quality Coding Scale 6 Independent with activity with or without an assistive device 5 Patient requires set up or clean up by helper. Patient completes activity by themselves 4 Supervision or touching assist (CGA). [place] provide cues , steadying assist 3 The helper provides less than half the effort to complete the activity 2 The helper provides more than half the effort to complete the activity 1 Dependent. The helper does all the effort to complete an activity 7 Patient refused to complete or attempt activity 9 The patient did not perform the activity before the current illness or injury 88 Not attempted due to Medical conditions or safety concerns Other Treatment Pt took himself to the gym. After application of paraffin to R hand, he worked on L UE AROM with manual resistance and facilitation/positioning. He is able to lift L arm at shoulder to about 90 degrees but tends to move in abduction, not flexion. Also worked on AROM and strength R UE, with manual resistance and facilitation. He demonstrated that he was able to touch thumb to index finger ( for the first time) and was able to pepper picker 1" blocks. Pt requested tape to passively stretch R index into flexion, with instructions to leave it on for about 1/2 hour. Pt took himself back to his room, all needs met. Education OT Patient Education: Modified ADL techniques, Progress toward Goal/Update tx plan, Purpose of tx/functional activities, Use of adapted equipment Teaching Recipient: Patient Teaching Methods: Demonstration, Discussion Response to Teaching: Verbalize Understanding, Return Demonstration OT Short Term Goals Short Term Goals Time Frame: Nov 17, 2016 Eating(FIM): 4 Grooming(FIM): 3 Upper Body Dressing(FIM): 3 Lower Body Dressing(FIM): 3 Toileting(FIM): 3 Toilet/Commode Transfer(FIM): 3 Shower Transfer(FIM): 3 Additional Short Term Goals: 2-Verbalize Understanding, 3-ImproveStrength/Fady 1=Demonstrate adherence to instructed precautions during ADL tasks. 2=Patient will verbalize/demonstrate understanding of assistive devices/ modifications for ADL. 3=Patient will improve strength/tolerance for activity to enable patient to perform ADL's. OT Bit Shaver Goals Bit Shaver Goals Time Frame: Dec 01, 2016 Eating (FIM): 5 Eating (QC): 5 Groomin Oral Hygiene (QC): 5 Bathing(FIM): 5 Shower/Bathe Self (QC): 5 Upper Body Dressing(FIM): 5 Upper Body Dressing (QC): 5 Lower Body Dressing(FIM): 5 Lower Body Dressing (QC): 5 On/Off Footwear (QC): 4 Toileting(FIM): 5 Toileting Hygiene (QC): 5 Toilet/Commode Transfer(FIM): 5 Toilet/Commode Transfer (QC): 5 Shower Transfer(FIM): 5 Additional Goals: 2-Verbalize Understanding, 3-ImproveStrength/Fady 1=Demonstrate adherence to instructed precautions during ADL tasks. 2=Patient will verbalize/demonstrate understanding of assistive devices/ modifications for ADL. 3=Patient will improve strength/tolerance for activity to enable patient to perform ADL's. OT Education/Plan Problem List/Assessment Pt would benefit from skilled OT to increase his independence in basic self care to allow him to safely return to his home to live alone and to decrease caregiver burden. Discharge Recommendations Plan/Recommendations: Continue POC Treatment Plan/Plan of Care Patient would benefit from OT for education, treatment and training to promote independence in ADL's, mobility, safety and/or upper extremity function for ADL' s. Plan of Care: ADL Retraining, Functional Mobility, Group Exercise/Act as Ind ( education, exercise, activity tolerance, functional activities, socialization), UE Funct Exercise/Act, UE Neuromus Re-Ed/Coord, W/C Management Training Treatment Duration: Dec 01, 2016 Frequency: At least 5-7 days/Wk (IRF) Estimated Hrs Per Day: 1.5 hours per day Agreement: Yes Rehab Potential: Fair Time/GCodes Start Time: 08:30 Stop Time: 09:30 Total Time Billed (hr/min): 60 Billed Treatment Time visit, ADL 15, neuromotor 45 min, paraffin bath THAI HOOVER OT Dec 04, 2016 11:11
--- NOTE | 2016-12-04 12:29 | Physical Therapy Daily Note ---
PT Daily Note-Current Subjective Agrees to PT. Reports he had pain meds around 8:30. Transfers Functional [place] Measure 0=Not Assessed/NA 4=Minimal Assistance 1=Total Assistance 5=Supervision or Setup 2=Maximal Assistance 6=Modified [place] 3=Moderate Assistance 7=Complete IndependenceIRFPAI Quality Coding Scale 6 Independent with activity with or without an assistive device 5 Patient requires set up or clean up by helper. Patient completes activity by themselves 4 Supervision or touching assist (CGA). [place] provide cues , steadying assist 3 The helper provides less than half the effort to complete the activity 2 The helper provides more than half the effort to complete the activity 1 Dependent. The helper does all the effort to complete an activity 7 Patient refused to complete or attempt activity 9 The patient did not perform the activity before the current illness or injury 88 Not attempted due to Medical conditions or safety concerns SPT wheelchair to bed with B platform FWW with close CGA x 2 reps. Worked on bed mobility sup to from sit x 2 reps. Pt able to transfer to supine with min asssit for legs and able to position in bed comfortable with only SBA and assist to raise the bed. Pt able to transfer to sit EOB with HOB fully elevated with only SBA. Pt sat EOB several minutes as well to work on functional unsupported trunk control Gait Training Pt was able to ambulate x 125 ft with FWW with B platforms with close CGA followed by the wheelchair. Pt required skilled cues for safety 25% of the time. Wheelchair Training Does the Pt Use a Wheelchair?: Yes Type of Wheelchair: Motorized Pt propelled himself off the unit, onto the elevator and outdoors to work on management of wheelchair in varied situations, he was able to do so mod indep. Assessment Current Status: Good Progress Pt did fairly well with bed mobility work and needs very little asssit for the tranfer. He does tolerate ambulation in the morning better than the afternoon, likely secondary to less fatigue and pain in the mornings. PT Short Term Goals Short Term Goals Time Frame: Nov 10, 2016 Gait (FIM): 1 (met) Gait Distance Comment: 10' Gait Level of Assist: 2 Gait Assistive Device: FWW, Walker Platform Wheelchair Distance: 150'x2 PT Snf Goals Hoop Coiling Machine Operator Goals PT Hoop Coiling Machine Operator Goals Time Frame: Nov 24, 2016 Transfers (B,C,W/C) (FIM): 4 Sit to Lying (QC): 3 Lying-Sitting on Side/Bed(QC): 3 Sit to Stand (QC): 3 Rollin Roll Left to Right (QC): 3 Chair/Zyy-cc-Hnaay Xfer(QC): 3 Gait (FIM): 1 Distance: 20' Walk 10 feet (QC): 2 Gait Level of Assist: 2 Gait Assistive Device: FWW, Walker Platform Wheelchair (FIM): 6 Distance: 500' Wheelchair Level of Assist: 6 Wheel 50 feet with 2 turns (QC: 6 PT Plan Problem List Problem List: Activity Tolerance, Functional Strength, Safety, Balance, Gait, Transfer, Bed Mobility Treatment/Plan Treatment Plan: Continue Plan of Care Treatment Plan: Bed Mobility, Education, Functional Activity Fady, Functional Strength, Group Therapy, Gait, Safety, Therapeutic Exercise, Transfers Treatment Duration: Nov 24, 2016 Frequency: At least 5-7 days/Wk (IRF) Estimated Hrs Per Day: 2 hours per day Patient and/or Family Agrees t: Yes Safety Risks/Education Patient Education: Transfer Techniques, Safety Issues Teaching Recipient: Patient Teaching Methods: Demonstration, Discussion Response to Teaching: Reinforcement Needed Time/GCodes Time In: 1015 Time Out: 1115 Total Billed Treatment Time: 60 Total Billed Treatment visit FA 30 GT 15 WC 15 PREMA JURADO PT Dec 04, 2016 12:29
[2016-12-04] MEDS ORDERED: KCL 20 MEQ TAB (K-DUR) PO NR (14:00)
--- NOTE | 2016-12-04 14:08 | Physical Therapy Daily Note ---
PT Daily Note-Current Subjective Agrees to PT. Pain Numeric Pain Scale: 0-No Pain Location: No Pain Reported Mental Status Patient Orientation: Normal For Age Transfers Functional [place] Measure 0=Not Assessed/NA 4=Minimal Assistance 1=Total Assistance 5=Supervision or Setup 2=Maximal Assistance 6=Modified [place] 3=Moderate Assistance 7=Complete IndependenceIRFPAI Quality Coding Scale 6 Independent with activity with or without an assistive device 5 Patient requires set up or clean up by helper. Patient completes activity by themselves 4 Supervision or touching assist (CGA). [place] provide cues , steadying assist 3 The helper provides less than half the effort to complete the activity 2 The helper provides more than half the effort to complete the activity 1 Dependent. The helper does all the effort to complete an activity 7 Patient refused to complete or attempt activity 9 The patient did not perform the activity before the current illness or injury 88 Not attempted due to Medical conditions or safety concerns Transfers (B, C, W/C) (FIM): 4 Scootin Supine to/from Sit: 4 Sit to/from Stand: 4 Sit to Lying (QC): 3 Sit to Stand (QC): 3 Chair/Hhu-pj-Jbfsq Xfer(QC): 3 Bed to/from Chair: 4 Gait Training Does the Patient Walk?: Yes Gait (FIM): 2 Distance (FIM): 6=600-75 ft Distance: 125' x 1; 100' x 1 Walk 10 feet (QC): 3 Walk 50 ft with 2 Turns(QC): 3 Gait Level of Assist: 4 Gait Persons Needed: 1 Gait Assistive Device: Walker Platform (bilateral) close CGA for safety with gait belt Assessment Current Status: Good Progress PT Short Term Goals Short Term Goals Time Frame: Nov 10, 2016 Gait (FIM): 1 (met) Gait Distance Comment: 10' Gait Level of Assist: 2 Gait Assistive Device: FWW, Walker Platform Wheelchair Distance: 150'x2 PT Skilled Nursing Goals Dining Car Server Goals PT Skilled Nursing Goals Time Frame: Nov 24, 2016 Transfers (B,C,W/C) (FIM): 4 Sit to Lying (QC): 3 Lying-Sitting on Side/Bed(QC): 3 Sit to Stand (QC): 3 Rollin Roll Left to Right (QC): 3 Chair/Oax-hn-Junmc Xfer(QC): 3 Gait (FIM): 1 Distance: 20' Walk 10 feet (QC): 2 Gait Level of Assist: 2 Gait Assistive Device: FWW, Walker Platform Wheelchair (FIM): 6 Distance: 500' Wheelchair Level of Assist: 6 Wheel 50 feet with 2 turns (QC: 6 PT Plan Treatment/Plan Treatment Plan: Continue Plan of Care Treatment Plan: Bed Mobility, Education, Functional Activity Fady, Functional Strength, Group Therapy, Gait, Safety, Therapeutic Exercise, Transfers Treatment Duration: Nov 24, 2016 Frequency: At least 5-7 days/Wk (IRF) Estimated Hrs Per Day: 2 hours per day Patient and/or Family Agrees t: Yes Time/GCodes Time In: 1330 Time Out: 1400 Total Billed Treatment Time: 30 Total Billed Treatment 1 visit GT x 2 30 min ALANNA OLIVER PT Dec 04, 2016 14:08
--- NOTE | 2016-12-04 14:55 | Occupational Ther Daily Note ---
OT Current Status-Daily Note Subjective Pt seen in room, up in power chair, agreeable to OT. No pain mentioned Appearance Alert, cooperative Mental Status/Objective Functional [place] Measure 0=Not Assessed/NA 4=Minimal Assistance 1=Total Assistance 5=Supervision or Setup 2=Maximal Assistance 6=Modified [place] 3=Moderate Assistance 7=Complete [place] ADL-Treatment Functional [place] Measure 0=Not Assessed/NA 4=Minimal Assistance 1=Total Assistance 5=Supervision or Setup 2=Maximal Assistance 6=Modified [place] 3=Moderate Assistance 7=Complete IndependenceIRFPAI Quality Coding Scale 6 Independent with activity with or without an assistive device 5 Patient requires set up or clean up by helper. Patient completes activity by themselves 4 Supervision or touching assist (CGA). [place] provide cues , steadying assist 3 The helper provides less than half the effort to complete the activity 2 The helper provides more than half the effort to complete the activity 1 Dependent. The helper does all the effort to complete an activity 7 Patient refused to complete or attempt activity 9 The patient did not perform the activity before the current illness or injury 88 Not attempted due to Medical conditions or safety concerns Other Treatment Pt took himself to gym per power chair. Crushing Foreman and pinch strength measurements taken: Crushing Foreman: L 6, 6, 6 lb (second position on dynamometer) an increase of 2 pounds from previous measurements R 2, 1, 1 (second position on dynamometer) an increase from trace R 4, 4, lb (space widened to fourth position on dynamometer) same Pinch: L R lateral 4# 2# 3 jaw sara 2# unable tip 2# unable Demonstrated increased pinch strength L hand and ability to pinch with R hand Also did standardized coordination assessment today: Box and Blocks: L 20 blocks in 1 minute (increase of 4 blocks from original testing in October) R 10 blocks in 1 minute (increase from unable from original testing in October) 9 hole peg test: L 1:[address] 1 peg R unable Pt had difficulty manip[ulating the position of 1/4" pegs for this test but was able to manipulate 1.25" pegs and place them in board, with L hand. Some compensatory movement at trunk and shoulder observed. Pt pleased with progress Education OT Patient Education: Progress toward Goal/Update tx plan, Purpose of tx/ functional activities Teaching Recipient: Patient Teaching Methods: Discussion Response to Teaching: Verbalize Understanding OT Short Term Goals Short Term Goals Time Frame: Nov 17, 2016 Eating(FIM): 4 Grooming(FIM): 3 Upper Body Dressing(FIM): 3 Lower Body Dressing(FIM): 3 Toileting(FIM): 3 Toilet/Commode Transfer(FIM): 3 Shower Transfer(FIM): 3 Additional Short Term Goals: 2-Verbalize Understanding, 3-ImproveStrength/Fady 1=Demonstrate adherence to instructed precautions during ADL tasks. 2=Patient will verbalize/demonstrate understanding of assistive devices/ modifications for ADL. 3=Patient will improve strength/tolerance for activity to enable patient to perform ADL's. OT Prison Goals Dope Sprayer Goals Time Frame: Dec 01, 2016 Eating (FIM): 5 Eating (QC): 5 Groomin Oral Hygiene (QC): 5 Bathing(FIM): 5 Shower/Bathe Self (QC): 5 Upper Body Dressing(FIM): 5 Upper Body Dressing (QC): 5 Lower Body Dressing(FIM): 5 Lower Body Dressing (QC): 5 On/Off Footwear (QC): 4 Toileting(FIM): 5 Toileting Hygiene (QC): 5 Toilet/Commode Transfer(FIM): 5 Toilet/Commode Transfer (QC): 5 Shower Transfer(FIM): 5 Additional Goals: 2-Verbalize Understanding, 3-ImproveStrength/Fady 1=Demonstrate adherence to instructed precautions during ADL tasks. 2=Patient will verbalize/demonstrate understanding of assistive devices/ modifications for ADL. 3=Patient will improve strength/tolerance for activity to enable patient to perform ADL's. OT Education/Plan Problem List/Assessment Pt would benefit from skilled OT to increase his independence in basic self care to allow him to safely return to his home to live alone and to decrease caregiver burden. Discharge Recommendations Plan/Recommendations: Continue POC Treatment Plan/Plan of Care Patient would benefit from OT for education, treatment and training to promote independence in ADL's, mobility, safety and/or upper extremity function for ADL' s. Plan of Care: ADL Retraining, Functional Mobility, Group Exercise/Act as Ind ( education, exercise, activity tolerance, functional activities, socialization), UE Funct Exercise/Act, UE Neuromus Re-Ed/Coord, W/C Management Training Treatment Duration: Dec 01, 2016 Frequency: At least 5-7 days/Wk (IRF) Estimated Hrs Per Day: 1.5 hours per day Agreement: Yes Rehab Potential: Fair Time/GCodes Start Time: 11:30 Stop Time: 12:00 Total Time Billed (hr/min): 30 Billed Treatment Time visit, 30 minutes neuromotor THAI HOOVER OT Dec 04, 2016 14:55
[2016-12-04 17:32] VITALS: BP 141/69
[2016-12-04] MEDS: IRBESARTAN 150 MG (AVAPRO) TAB PO SCH (21:20)
[2016-12-05] MEDS: HYDROcodone/APAP 10 MG/325 MG (LORTAB) TAB PO PRN ×5 (03:58→21:55)
[2016-12-05 05:00] VITALS: BP 129/80
[2016-12-05] MEDS: metFORMIN 500 MG (GLUCOPHAGE) TAB PO SCH ×2 (06:52→17:01)
[2016-12-05] MEDS: KCL 20 MEQ TAB (K-DUR) PO SCH (06:53)
[2016-12-05] MEDS: inSUlin (REGULAR) HUMAN 1 UNIT/0.01 ML (CHARGE PER UNIT) SC SCH ×3 (06:53→17:01)
[2016-12-05] MEDS: MULTIVIT W/MINERALS TAB (THERAGRAN M) PO SCH (06:55)
[2016-12-05] MEDS: SENNA W/DOCUSATE (SENOKOT S) TABLET PO SCH ×2 (07:57→21:55)
[2016-12-05] MEDS: amLODIPine 5 MG (NORVASC) TAB PO SCH (07:57)
[2016-12-05] MEDS: HYDROCHLOROTHIAZIDE 25 MG (HCTZ) TAB PO SCH (07:57)
[2016-12-05] MEDS: MICONAZOLE 2% POWDER (DESENEX AF) 90 GM TOP SCH ×2 (08:04→19:34)
[2016-12-05] MEDS: A & D OINT 60 GM TUBE TOP SCH (08:05)
[2016-12-05] MEDS: MENTHOL/ZINC OXIDE (CALMOSEPTINE) 113 GM TUBE TOP SCH ×2 (08:05→19:34)
[2016-12-05] MEDS: POLYETHYLENE GLYCOL 17 GM (MIRALAX) PACK PO SCH ×2 (10:00→21:01)
[2016-12-05] MEDS: LACTULOSE SYRUP 10GM/15ML (ENULOSE) 30ML UDC PO SCH ×2 (10:00→21:56)
--- NOTE | 2016-12-05 10:10 | Physical Therapy Daily Note ---
PT Daily Note-Current Subjective Patient agrees to gait training. Pain Numeric Pain Scale: 5-Moderate Pain Location Body Site: Generalized Pain Description: Chronic Mental Status Patient Orientation: Normal For Age Transfers Functional [place] Measure 0=Not Assessed/NA 4=Minimal Assistance 1=Total Assistance 5=Supervision or Setup 2=Maximal Assistance 6=Modified [place] 3=Moderate Assistance 7=Complete IndependenceIRFPAI Quality Coding Scale 6 Independent with activity with or without an assistive device 5 Patient requires set up or clean up by helper. Patient completes activity by themselves 4 Supervision or touching assist (CGA). [place] provide cues , steadying assist 3 The helper provides less than half the effort to complete the activity 2 The helper provides more than half the effort to complete the activity 1 Dependent. The helper does all the effort to complete an activity 7 Patient refused to complete or attempt activity 9 The patient did not perform the activity before the current illness or injury 88 Not attempted due to Medical conditions or safety concerns Transfers (B, C, W/C) (FIM): 4 Scootin Sit to/from Stand: 4 Sit to Stand (QC): 3 Gait Training Does the Patient Walk?: Yes Gait (FIM): 2 Distance (FIM): 1=183-72 ft Distance: 125' x 2 Walk 10 feet (QC): 3 Walk 50 ft with 2 Turns(QC): 3 Gait Level of Assist: 4 Gait Persons Needed: 1 Gait Assistive Device: Walker Platform (bilateral ) close CGA for safety; improved gait sequence Assessment Current Status: Excellent Progress PT Short Term Goals Short Term Goals Time Frame: Nov 10, 2016 Gait (FIM): 1 (met) Gait Distance Comment: 10' Gait Level of Assist: 2 Gait Assistive Device: FWW, Walker Platform Wheelchair Distance: 150'x2 PT Jail Goals Jail Goals PT Jail Goals Time Frame: Nov 24, 2016 Transfers (B,C,W/C) (FIM): 4 Sit to Lying (QC): 3 Lying-Sitting on Side/Bed(QC): 3 Sit to Stand (QC): 3 Rollin Roll Left to Right (QC): 3 Chair/Xtd-zy-[place]ix Xfer(QC): 3 Gait (FIM): 1 Distance: 20' Walk 10 feet (QC): 2 Gait Level of Assist: 2 Gait Assistive Device: FWW, Walker Platform Wheelchair (FIM): 6 Distance: 500' Wheelchair Level of Assist: 6 Wheel 50 feet with 2 turns (QC: 6 PT Plan Treatment/Plan Treatment Plan: Continue Plan of Care Treatment Plan: Bed Mobility, Education, Functional Activity Fady, Functional Strength, Group Therapy, Gait, Safety, Therapeutic Exercise, Transfers Treatment Duration: Nov 24, 2016 Frequency: At least 5-7 days/Wk (IRF) Estimated Hrs Per Day: 2 hours per day Patient and/or Family Agrees t: Yes Time/GCodes Time In: 910 Time Out: 933 Total Billed Treatment Time: 23 Total Billed Treatment 1 visit GT x 2 23 min ALANNA OLIVER PT Dec 05, 2016 10:10
[2016-12-05] MEDS: LIDOCAINE (LIDODERM) 5% PATCH TOP SCH (10:13)
[2016-12-05 17:16] VITALS: BP 124/78
[2016-12-05] MEDS: DIAZEPAM 5 MG (VALIUM) TABLET PO PRN ×2 (19:33→21:55)
[2016-12-05] MEDS: IRBESARTAN 150 MG (AVAPRO) TAB PO SCH (21:55)
[2016-12-06] MEDS: HYDROcodone/APAP 10 MG/325 MG (LORTAB) TAB PO PRN ×5 (01:51→21:09)
[2016-12-06 06:00] VITALS: BP 120/83
[2016-12-06] MEDS: KCL 20 MEQ TAB (K-DUR) PO SCH (06:48)
[2016-12-06] MEDS: inSUlin (REGULAR) HUMAN 1 UNIT/0.01 ML (CHARGE PER UNIT) SC SCH ×3 (06:48→17:25)
[2016-12-06] MEDS: metFORMIN 500 MG (GLUCOPHAGE) TAB PO SCH ×2 (06:48→17:24)
[2016-12-06] MEDS: MULTIVIT W/MINERALS TAB (THERAGRAN M) PO SCH (06:51)
[2016-12-06] MEDS: SENNA W/DOCUSATE (SENOKOT S) TABLET PO SCH ×2 (09:44→20:58)
[2016-12-06] MEDS: HYDROCHLOROTHIAZIDE 25 MG (HCTZ) TAB PO SCH (09:44)
[2016-12-06] MEDS: amLODIPine 5 MG (NORVASC) TAB PO SCH (09:44)
[2016-12-06] MEDS: MICONAZOLE 2% POWDER (DESENEX AF) 90 GM TOP SCH ×2 (09:45→21:05)
[2016-12-06] MEDS: A & D OINT 60 GM TUBE TOP SCH (09:45)
[2016-12-06] MEDS: LIDOCAINE (LIDODERM) 5% PATCH TOP SCH (09:46)
[2016-12-06] MEDS: LACTULOSE SYRUP 10GM/15ML (ENULOSE) 30ML UDC PO SCH ×2 (09:53→20:58)
[2016-12-06] MEDS: MENTHOL/ZINC OXIDE (CALMOSEPTINE) 113 GM TUBE TOP SCH ×2 (09:53→21:05)
[2016-12-06] MEDS: POLYETHYLENE GLYCOL 17 GM (MIRALAX) PACK PO SCH ×2 (09:53→20:58)
[2016-12-06] MEDS: DIAZEPAM 5 MG (VALIUM) TABLET PO PRN ×2 (12:46→20:58)
[2016-12-06 18:16] VITALS: BP 129/77
[2016-12-06] MEDS: IRBESARTAN 150 MG (AVAPRO) TAB PO SCH (20:58)
[2016-12-07] MEDS: HYDROcodone/APAP 10 MG/325 MG (LORTAB) TAB PO PRN ×6 (02:28→23:09)
[2016-12-07] MEDS: MULTIVIT W/MINERALS TAB (THERAGRAN M) PO SCH (06:29)
[2016-12-07] MEDS: KCL 20 MEQ TAB (K-DUR) PO SCH (06:29)
[2016-12-07] MEDS: metFORMIN 500 MG (GLUCOPHAGE) TAB PO SCH ×2 (06:29→16:52)
[2016-12-07] MEDS: inSUlin (REGULAR) HUMAN 1 UNIT/0.01 ML (CHARGE PER UNIT) SC SCH ×3 (06:29→15:00)
[2016-12-07 06:38] VITALS: BP 143/84
[2016-12-07] MEDS: amLODIPine 5 MG (NORVASC) TAB PO SCH (08:55)
[2016-12-07] MEDS: HYDROCHLOROTHIAZIDE 25 MG (HCTZ) TAB PO SCH (08:55)
[2016-12-07] MEDS: SENNA W/DOCUSATE (SENOKOT S) TABLET PO SCH ×2 (08:56→20:31)
[2016-12-07] MEDS: MENTHOL/ZINC OXIDE (CALMOSEPTINE) 113 GM TUBE TOP SCH ×2 (08:56→20:31)
[2016-12-07] MEDS: MICONAZOLE 2% POWDER (DESENEX AF) 90 GM TOP SCH ×2 (08:56→20:32)
[2016-12-07] MEDS: LACTULOSE SYRUP 10GM/15ML (ENULOSE) 30ML UDC PO SCH ×2 (09:01→20:31)
[2016-12-07] MEDS: A & D OINT 60 GM TUBE TOP SCH (09:03)
[2016-12-07] MEDS: LIDOCAINE (LIDODERM) 5% PATCH TOP SCH (09:56)
[2016-12-07] MEDS: POLYETHYLENE GLYCOL 17 GM (MIRALAX) PACK PO SCH ×2 (09:56→20:33)
--- NOTE | 2016-12-07 11:01 | Physical Therapy Daily Note ---
PT Daily Note-Current Subjective Patient in power chair pre tx, agrees to PT, has 7/10 pain in his right shoulder and left hip, nurse notified but he cannot have any more pain meds at this time. Appearance Patient in power chair post tx. Mental Status Patient Orientation: Normal For Age cervical collar Transfers Functional [place] Measure 0=Not Assessed/NA 4=Minimal Assistance 1=Total Assistance 5=Supervision or Setup 2=Maximal Assistance 6=Modified [place] 3=Moderate Assistance 7=Complete IndependenceIRFPAI Quality Coding Scale 6 Independent with activity with or without an assistive device 5 Patient requires set up or clean up by helper. Patient completes activity by themselves 4 Supervision or touching assist (CGA). [place] provide cues , steadying assist 3 The helper provides less than half the effort to complete the activity 2 The helper provides more than half the effort to complete the activity 1 Dependent. The helper does all the effort to complete an activity 7 Patient refused to complete or attempt activity 9 The patient did not perform the activity before the current illness or injury 88 Not attempted due to Medical conditions or safety concerns Transfers (B, C, W/C) (FIM): 4 Sit to/from Stand: 4 Patient is able to perform sit to stand from his chair with CGA. Gait Training Gait (FIM): 2 Distance: 120'x2 Gait Level of Assist: 4 Gait Persons Needed: 1 Patient uses a bilateral platform walker, needs a little assist to help guide the walker ([place]), wheelchair follow. Patient ambulates very slowly and it takes a lot of effort to advance his legs when stepping. Wheelchair Training Patient's wheelchair needed a little adjusting with the wires and the right leg rest. Exercises Seated Therapy Exercises: Ankle pumps, Hip flexion Seated Reps: 20 LAQ alternating for 5 min with 2# ankle weights, mini-squats at parallel bars 3 sets of 10 Treatments transfers, ambulation, wheelchair management, functional strengthening Assessment Current Status: Fair Progress slowly improving mobility, still needs to work on bed mobility PT Short Term Goals Short Term Goals Time Frame: Nov 10, 2016 Gait (FIM): 1 (met) Gait Distance Comment: 10' Gait Level of Assist: 2 Gait Assistive Device: FWW, Walker Platform Wheelchair Distance: 150'x2 PT Film Crew Member Goals Film Crew Member Goals PT Jail Goals Time Frame: Nov 24, 2016 Transfers (B,C,W/C) (FIM): 4 Sit to Lying (QC): 3 Lying-Sitting on Side/Bed(QC): 3 Sit to Stand (QC): 3 Rollin Roll Left to Right (QC): 3 Chair/Rqg-yw-Sprya Xfer(QC): 3 Gait (FIM): 1 Distance: 20' Walk 10 feet (QC): 2 Gait Level of Assist: 2 Gait Assistive Device: FWW, Walker Platform Wheelchair (FIM): 6 Distance: 500' Wheelchair Level of Assist: 6 Wheel 50 feet with 2 turns (QC: 6 PT Plan Problem List Problem List: Activity Tolerance, Functional Strength, Safety, Balance, Gait, Transfer, Bed Mobility, ROM Treatment/Plan Treatment Plan: Continue Plan of Care Treatment Plan: Bed Mobility, Education, Functional Activity Fady, Functional Strength, Group Therapy, Gait, Safety, Therapeutic Exercise, Transfers Treatment Duration: Nov 24, 2016 Frequency: At least 5-7 days/Wk (IRF) Estimated Hrs Per Day: 2 hours per day Patient and/or Family Agrees t: Yes Safety Risks/Education Patient Education: Gait Training, Transfer Techniques, Correct Positioning, W/ C Management, Safety Issues Teaching Recipient: Patient Teaching Methods: Demonstration, Discussion Response to Teaching: Reinforcement Needed Time/GCodes Time In: 1000 Time Out: 1100 Total Billed Treatment Time: 60 Total Billed Treatment 1 visit [facility] 15' EX 15' GT 30' CATALINA RUBI PT Dec 07, 2016 11:01
--- NOTE | 2016-12-07 11:17 | Occupational Ther Daily Note ---
OT Current Status-Daily Note Subjective Pt seen in room, up in bed, agreeable to OT. No pain mentioned. Appearance Alert, cooperative Mental Status/Objective Functional [place] Measure 0=Not Assessed/NA 4=Minimal Assistance 1=Total Assistance 5=Supervision or Setup 2=Maximal Assistance 6=Modified [place] 3=Moderate Assistance 7=Complete [place] ADL-Treatment Worked on dressing and transfer from bed to BSC and power chair. Pt's may use a sits to stand lift to transfer him after discharge but eventually he needs to do it on his own to go to his own home. After dressing, toileting worked on self feeding with adapted utensils. Pt returned to his room after therapy, all needs met. Functional [place] Measure 0=Not Assessed/NA 4=Minimal Assistance 1=Total Assistance 5=Supervision or Setup 2=Maximal Assistance 6=Modified [place] 3=Moderate Assistance 7=Complete IndependenceIRFPAI Quality Coding Scale 6 Independent with activity with or without an assistive device 5 Patient requires set up or clean up by helper. Patient completes activity by themselves 4 Supervision or touching assist (CGA). [place] provide cues , steadying assist 3 The helper provides less than half the effort to complete the activity 2 The helper provides more than half the effort to complete the activity 1 Dependent. The helper does all the effort to complete an activity 7 Patient refused to complete or attempt activity 9 The patient did not perform the activity before the current illness or injury 88 Not attempted due to Medical conditions or safety concerns Eating (FIM): 4 (Pt practiced eating with weighted utensil (per his request) and with commercially available built-up handled fork. He preferred the built up handle. He was able to stab food with fork in L hand and get it to his mouth. Also tried it with R hand and he coculd hold the fork but didn't have elbow flexion to get fork to mouth. Practiced cutting cinnamon roll with rocker knife L hand, requiring handle built up. Needed just a little help overall. ) Upper Body (FIM): 3 (Needed help getting arms out of t shirt. Able to place arms in t shirt, help needed to get it over his head, a little help to pull it down. Seated EOB) Lower Body Dressing (FIM): 3 (Stood up with min-mod assist at EOB (bed elevated ), platform walker, min assist to maintain standing. OT pulled pants up and down. Pt was able to kick dirty shorts off feet once sitting. He sat EOB and was able to get both feet into shorts legs and pull them up to thighs. Unable to manage shoes and socks. ) Toileting (FIM): 2 (On BSC by bed. Mod assist to stand for help to manage clothing. Platform walker. Unable to wipe. Nursing put ointment and medicated powder on after toileting) Transfers (B, C, W/C) (FIM): 1 (Mod assist transfer from bed to BSC and from BSC to power chair. Transfer to power chair made more difficult because one legrest does not fully move out of the way. Used platform walker. Two people needed because one person had to drive power chair into position) Toilet/Commode Transfer (FIM): 3 (Mod assist to get off BSC (he has difficulty pushing off or reaching for arms on commode), FWW with platforms. ) Education OT Patient Education: Modified ADL techniques, Progress toward Goal/Update tx plan, Purpose of tx/functional activities, Transfer techniques, Use of adapted equipment Teaching Recipient: Patient Teaching Methods: Demonstration, Discussion Response to Teaching: Verbalize Understanding, Return Demonstration, Reinforcement Needed OT Short Term Goals Short Term Goals Time Frame: Nov 17, 2016 Eating(FIM): 4 Grooming(FIM): 3 Upper Body Dressing(FIM): 3 Lower Body Dressing(FIM): 3 Toileting(FIM): 3 Toilet/Commode Transfer(FIM): 3 Shower Transfer(FIM): 3 Additional Short Term Goals: 2-Verbalize Understanding, 3-ImproveStrength/Fady 1=Demonstrate adherence to instructed precautions during ADL tasks. 2=Patient will verbalize/demonstrate understanding of assistive devices/ modifications for ADL. 3=Patient will improve strength/tolerance for activity to enable patient to perform ADL's. OT Half-Way Goals Half-Way Goals Time Frame: Dec 01, 2016 Eating (FIM): 5 Eating (QC): 5 Groomin Oral Hygiene (QC): 5 Bathing(FIM): 5 Shower/Bathe Self (QC): 5 Upper Body Dressing(FIM): 5 Upper Body Dressing (QC): 5 Lower Body Dressing(FIM): 5 Lower Body Dressing (QC): 5 On/Off Footwear (QC): 4 Toileting(FIM): 5 Toileting Hygiene (QC): 5 Toilet/Commode Transfer(FIM): 5 Toilet/Commode Transfer (QC): 5 Shower Transfer(FIM): 5 Additional Goals: 2-Verbalize Understanding, 3-ImproveStrength/Fady 1=Demonstrate adherence to instructed precautions during ADL tasks. 2=Patient will verbalize/demonstrate understanding of assistive devices/ modifications for ADL. 3=Patient will improve strength/tolerance for activity to enable patient to perform ADL's. OT Education/Plan Problem List/Assessment Pt would benefit from skilled OT to increase his independence in basic self care to allow him to safely return to his home to live alone and to decrease caregiver burden. Discharge Recommendations Plan/Recommendations: Continue POC Treatment Plan/Plan of Care Patient would benefit from OT for education, treatment and training to promote independence in ADL's, mobility, safety and/or upper extremity function for ADL' s. Plan of Care: ADL Retraining, Functional Mobility, Group Exercise/Act as Ind ( education, exercise, activity tolerance, functional activities, socialization), UE Funct Exercise/Act, UE Neuromus Re-Ed/Coord, W/C Management Training Treatment Duration: Dec 01, 2016 Frequency: At least 5-7 days/Wk (IRF) Estimated Hrs Per Day: 1.5 hours per day Agreement: Yes Rehab Potential: Fair Time/GCodes Start Time: 08:30 Stop Time: 09:30 Total Time Billed (hr/min): 60 Billed Treatment Time visit, 60 minutes ADL THAI HOOVER OT Dec 07, 2016 11:17
--- NOTE | 2016-12-07 14:04 | Physical Therapy Daily Note ---
PT Daily Note-Current Subjective Patient agrees to PT. C/o of bilateral shoulder pain. RN aware. Pain Numeric Pain Scale: 7 Location: Right, Left Location Body Site: Shoulder Pain Description: Chronic Mental Status Patient Orientation: Normal For Age Transfers Functional [place] Measure 0=Not Assessed/NA 4=Minimal Assistance 1=Total Assistance 5=Supervision or Setup 2=Maximal Assistance 6=Modified [place] 3=Moderate Assistance 7=Complete IndependenceIRFPAI Quality Coding Scale 6 Independent with activity with or without an assistive device 5 Patient requires set up or clean up by helper. Patient completes activity by themselves 4 Supervision or touching assist (CGA). [place] provide cues , steadying assist 3 The helper provides less than half the effort to complete the activity 2 The helper provides more than half the effort to complete the activity 1 Dependent. The helper does all the effort to complete an activity 7 Patient refused to complete or attempt activity 9 The patient did not perform the activity before the current illness or injury 88 Not attempted due to Medical conditions or safety concerns Transfers (B, C, W/C) (FIM): 3 Scootin Rollin Roll Left to Right (QC): 2 Supine to/from Sit: 3 Sit to/from Stand: 4 Sit to Lying (QC): 2 Sit to Stand (QC): 3 Chair/Orc-ih-Yerve Xfer(QC): 3 Bed to/from Chair: 4 Gait Training Does the Patient Walk?: Yes Gait (FIM): 2 Distance (FIM): 1=908-27 ft Distance: 125' x 2 Walk 10 feet (QC): 3 Walk 50 ft with 2 Turns(QC): 3 Gait Level of Assist: 4 Gait Persons Needed: 1 Gait Assistive Device: Walker Platform (bilateral ) step to gait sequence with trunk flexed posture Assessment Patient is very fatigued this p.m. and returned to bed with needs met. PT Short Term Goals Short Term Goals Time Frame: Nov 10, 2016 Gait (FIM): 1 (met) Gait Distance Comment: 10' Gait Level of Assist: 2 Gait Assistive Device: FWW, Walker Platform Wheelchair Distance: 150'x2 PT Re Etcher Goals Re Etcher Goals PT Re Etcher Goals Time Frame: Nov 24, 2016 Transfers (B,C,W/C) (FIM): 4 Sit to Lying (QC): 3 Lying-Sitting on Side/Bed(QC): 3 Sit to Stand (QC): 3 Rollin Roll Left to Right (QC): 3 Chair/Qyl-rc-Pwqyp Xfer(QC): 3 Gait (FIM): 1 Distance: 20' Walk 10 feet (QC): 2 Gait Level of Assist: 2 Gait Assistive Device: FWW, Walker Platform Wheelchair (FIM): 6 Distance: 500' Wheelchair Level of Assist: 6 Wheel 50 feet with 2 turns (QC: 6 PT Plan Treatment/Plan Treatment Plan: Continue Plan of Care Treatment Plan: Bed Mobility, Education, Functional Activity Fady, Functional Strength, Group Therapy, Gait, Safety, Therapeutic Exercise, Transfers Treatment Duration: Nov 24, 2016 Frequency: At least 5-7 days/Wk (IRF) Estimated Hrs Per Day: 2 hours per day Patient and/or Family Agrees t: Yes Time/GCodes Time In: 1330 Time Out: 1400 Total Billed Treatment Time: 30 Total Billed Treatment 1 visit GT x 2 30 min ALANNA OLIVER PT Dec 07, 2016 14:04
--- NOTE | 2016-12-07 14:17 | Occupational Ther Daily Note ---
OT Current Status-Daily Note Subjective Pt seen in room, up in power chair, agreeable to OT. No pain mentioned. Appearance Alert, cooperative Mental Status/Objective Functional [place] Measure 0=Not Assessed/NA 4=Minimal Assistance 1=Total Assistance 5=Supervision or Setup 2=Maximal Assistance 6=Modified [place] 3=Moderate Assistance 7=Complete [place] ADL-Treatment Pt education on different types of adapted equipment available to help him be more independent. Pt provided with catalog that gives examples of different devices such as built up handled silverware, universal cuff, elastic shoe laces , plate with lip, walker baskets. Pt may find items on the internet from different sources. May also want to look for a kelley for his phone which can help stabilize on the table and set it at a better angle. Care transferred to PT. All needs met. Functional [place] Measure 0=Not Assessed/NA 4=Minimal Assistance 1=Total Assistance 5=Supervision or Setup 2=Maximal Assistance 6=Modified [place] 3=Moderate Assistance 7=Complete IndependenceIRFPAI Quality Coding Scale 6 Independent with activity with or without an assistive device 5 Patient requires set up or clean up by helper. Patient completes activity by themselves 4 Supervision or touching assist (CGA). [place] provide cues , steadying assist 3 The helper provides less than half the effort to complete the activity 2 The helper provides more than half the effort to complete the activity 1 Dependent. The helper does all the effort to complete an activity 7 Patient refused to complete or attempt activity 9 The patient did not perform the activity before the current illness or injury 88 Not attempted due to Medical conditions or safety concerns Education OT Patient Education: Modified ADL techniques, Purpose of tx/functional activities, Use of adapted equipment Teaching Recipient: Patient Teaching Methods: Discussion Response to Teaching: Verbalize Understanding OT Short Term Goals Short Term Goals Time Frame: Nov 17, 2016 Eating(FIM): 4 Grooming(FIM): 3 Upper Body Dressing(FIM): 3 Lower Body Dressing(FIM): 3 Toileting(FIM): 3 Toilet/Commode Transfer(FIM): 3 Shower Transfer(FIM): 3 Additional Short Term Goals: 2-Verbalize Understanding, 3-ImproveStrength/Fady 1=Demonstrate adherence to instructed precautions during ADL tasks. 2=Patient will verbalize/demonstrate understanding of assistive devices/ modifications for ADL. 3=Patient will improve strength/tolerance for activity to enable patient to perform ADL's. OT Assisted Goals Assisted Goals Time Frame: Dec 01, 2016 Eating (FIM): 5 Eating (QC): 5 Groomin Oral Hygiene (QC): 5 Bathing(FIM): 5 Shower/Bathe Self (QC): 5 Upper Body Dressing(FIM): 5 Upper Body Dressing (QC): 5 Lower Body Dressing(FIM): 5 Lower Body Dressing (QC): 5 On/Off Footwear (QC): 4 Toileting(FIM): 5 Toileting Hygiene (QC): 5 Toilet/Commode Transfer(FIM): 5 Toilet/Commode Transfer (QC): 5 Shower Transfer(FIM): 5 Additional Goals: 2-Verbalize Understanding, 3-ImproveStrength/Fady 1=Demonstrate adherence to instructed precautions during ADL tasks. 2=Patient will verbalize/demonstrate understanding of assistive devices/ modifications for ADL. 3=Patient will improve strength/tolerance for activity to enable patient to perform ADL's. OT Education/Plan Problem List/Assessment Pt would benefit from skilled OT to increase his independence in basic self care to allow him to safely return to his home to live alone and to decrease caregiver burden. Discharge Recommendations Plan/Recommendations: Continue POC Treatment Plan/Plan of Care Patient would benefit from OT for education, treatment and training to promote independence in ADL's, mobility, safety and/or upper extremity function for ADL' s. Plan of Care: ADL Retraining, Functional Mobility, Group Exercise/Act as Ind ( education, exercise, activity tolerance, functional activities, socialization), UE Funct Exercise/Act, UE Neuromus Re-Ed/Coord, W/C Management Training Treatment Duration: Dec 01, 2016 Frequency: At least 5-7 days/Wk (IRF) Estimated Hrs Per Day: 1.5 hours per day Agreement: Yes Rehab Potential: Fair Time/GCodes Start Time: 13:00 Stop Time: 13:30 Total Time Billed (hr/min): 30 Billed Treatment Time visit, ADL 30 minutes THAI HOOVER OT Dec 07, 2016 14:17
--- NOTE | 2016-12-07 14:21 | Occupational Ther Daily Note ---
OT Current Status-Daily Note Subjective Pt seen in room, up in recliner, agreeable to OT. No pain mentioned. Appearance Alert, cooperative Mental Status/Objective Functional [place] Measure 0=Not Assessed/NA 4=Minimal Assistance 1=Total Assistance 5=Supervision or Setup 2=Maximal Assistance 6=Modified [place] 3=Moderate Assistance 7=Complete [place] ADL-Treatment Functional [place] Measure 0=Not Assessed/NA 4=Minimal Assistance 1=Total Assistance 5=Supervision or Setup 2=Maximal Assistance 6=Modified [place] 3=Moderate Assistance 7=Complete IndependenceIRFPAI Quality Coding Scale 6 Independent with activity with or without an assistive device 5 Patient requires set up or clean up by helper. Patient completes activity by themselves 4 Supervision or touching assist (CGA). [place] provide cues , steadying assist 3 The helper provides less than half the effort to complete the activity 2 The helper provides more than half the effort to complete the activity 1 Dependent. The helper does all the effort to complete an activity 7 Patient refused to complete or attempt activity 9 The patient did not perform the activity before the current illness or injury 88 Not attempted due to Medical conditions or safety concerns Other Treatment Correct hand placement 4 out of 4 times. Pt walked with SBA for safely, FWW to commons area and sat in chair with arms. With 1# weight on each arm, did bilat UE activities to strengthen arms to help with transfers and use of FWW. Pt correctly placed hands during transfer 100% of the time this afternoon. Pt walked back to room and was left up in recliner, all needs met. Education OT Patient Education: Exercise program, Purpose of tx/functional activities Teaching Recipient: Patient Teaching Methods: Discussion Response to Teaching: Verbalize Understanding OT Short Term Goals Short Term Goals Time Frame: Nov 17, 2016 Eating(FIM): 4 Grooming(FIM): 3 Upper Body Dressing(FIM): 3 Lower Body Dressing(FIM): 3 Toileting(FIM): 3 Toilet/Commode Transfer(FIM): 3 Shower Transfer(FIM): 3 Additional Short Term Goals: 2-Verbalize Understanding, 3-ImproveStrength/Fady 1=Demonstrate adherence to instructed precautions during ADL tasks. 2=Patient will verbalize/demonstrate understanding of assistive devices/ modifications for ADL. 3=Patient will improve strength/tolerance for activity to enable patient to perform ADL's. OT Press Breaker Goals Press Breaker Goals Time Frame: Dec 01, 2016 Eating (FIM): 5 Eating (QC): 5 Groomin Oral Hygiene (QC): 5 Bathing(FIM): 5 Shower/Bathe Self (QC): 5 Upper Body Dressing(FIM): 5 Upper Body Dressing (QC): 5 Lower Body Dressing(FIM): 5 Lower Body Dressing (QC): 5 On/Off Footwear (QC): 4 Toileting(FIM): 5 Toileting Hygiene (QC): 5 Toilet/Commode Transfer(FIM): 5 Toilet/Commode Transfer (QC): 5 Shower Transfer(FIM): 5 Additional Goals: 2-Verbalize Understanding, 3-ImproveStrength/Fady 1=Demonstrate adherence to instructed precautions during ADL tasks. 2=Patient will verbalize/demonstrate understanding of assistive devices/ modifications for ADL. 3=Patient will improve strength/tolerance for activity to enable patient to perform ADL's. OT Education/Plan Problem List/Assessment Pt would benefit from skilled OT to increase his independence in basic self care to allow him to safely return to his home to live alone and to decrease caregiver burden. Discharge Recommendations Plan/Recommendations: Continue POC Treatment Plan/Plan of Care Patient would benefit from OT for education, treatment and training to promote independence in ADL's, mobility, safety and/or upper extremity function for ADL' s. Plan of Care: ADL Retraining, Functional Mobility, Group Exercise/Act as Ind ( education, exercise, activity tolerance, functional activities, socialization), UE Funct Exercise/Act, UE Neuromus Re-Ed/Coord, W/C Management Training Treatment Duration: Dec 01, 2016 Frequency: At least 5-7 days/Wk (IRF) Estimated Hrs Per Day: 1.5 hours per day Agreement: Yes Rehab Potential: Fair Time/GCodes Start Time: 13:35 Stop Time: 14:05 Total Time Billed (hr/min): 30 Billed Treatment Time visits, 30 minutes exercise THAI HOOVER OT Dec 07, 2016 14:21
[2016-12-07 17:00] VITALS: BP 122/69
--- NOTE | 2016-12-07 20:26 | PM & R (SOAP) Progress Note ---
Subjective Time Seen by Provider: 20:05 Subjective/Events-last exam Patient was seen in his room this evening Patient continues to have return in strength including elevator installer strength and AROM Serum K low last week Supplement ordered Objective Exam Last Set of Vital Signs Vital Signs Date Time Temp Pulse Resp B/P (MAP) Pulse Ox O2 Delivery O2 Flow Rate FiO2 12/07/16 17:00 98.2 79 19 122/69 96 Room Air Capillary Refill : I&O Intake and Output 12/06/16 23:59 Intake Total 1400 ml Balance 1400 ml Intake Oral 1400 ml # Voids 9 # Bowel Movements 1 General: Alert, Oriented X3, Cooperative, No Acute Distress HEENT: Atraumatic, PERRLA, EOMI, Mucous Memb Moist/[place] Neck: Supple, Other (inciasion healing well C Collar in place) Lungs: Clear to Auscultation Heart: Regular Rate Abdomen: Normal Bowel Sounds Extremities: Other (trace edema rt hand) Skin: Other (rt heel wrapped) Neuro: Other (2-3 strength rt UE Numbness rt hand) Results Lab Laboratory Tests 12/05/16 06:25: Glucometer 143H 12/05/16 15:58: Glucometer 183H 12/06/16 07:02: Glucometer 125H 12/06/16 15:57: Glucometer 166H 12/07/16 06:28: Glucometer 126H 12/07/16 15:45: Glucometer 169H Assessment/Plan Assessment Cervical spine spondylosis with myelopathy s/p decompression DR Atkinson affecting U Limbs more then Lower with strength gradually improving but remaining with impaired elevator installer strength affecting ADL skills Dysphagia improved diet advanced- to regular consistency discussed with RN AMY on cpap HTN controlled DM with episode of hypoglycemia Dr juarez has adjusted insulin -improved HLP Intolerance to oxy-disturbed sleep Pressure sore rt heel-improving DJD Left Knee DJD left Hip S/P rt HIP relacement DR Cantu remote Trochanteric bursitis left hip s/p Injection DR Riley Hypokalemia-replaced Plan Continue PT/OT/Pain management F/U with Hospitalist and DR Atkinson as per their schedule Trend Accucheks and adjust insulin as needed Pain management Changed meds-improved Wound care reconsult to check rt heel -see orders-done as per above Patient doing better with switch to hydrocodone for pain-less side effects report Discussed discharge options.with SW. Check Xray left hip-done Consult ortho re possible injection for pain control-done Team Conference held 12-02-16-See report for full functional update and POC and ELOS Pain management Trial of Lidoderm patch-in progress. Continue wit paraffin baths for hands with OT as indicated Rechecked Labs K supplement ordered Reconference 12-09-16 recheck labs JOSEY SALINAS MD Dec 07, 2016 20:25
[2016-12-07] MEDS: IRBESARTAN 150 MG (AVAPRO) TAB PO SCH (20:31)
[2016-12-08] MEDS: HYDROcodone/APAP 10 MG/325 MG (LORTAB) TAB PO PRN ×4 (02:49→20:37)
[2016-12-08 04:59] VITALS: BP 106/72
[2016-12-08] MEDS: DIAZEPAM 5 MG (VALIUM) TABLET PO PRN (05:45)
[2016-12-08] MEDS: metFORMIN 500 MG (GLUCOPHAGE) TAB PO SCH ×2 (06:21→16:20)
[2016-12-08] MEDS: KCL 20 MEQ TAB (K-DUR) PO SCH (06:21)
[2016-12-08] MEDS: MULTIVIT W/MINERALS TAB (THERAGRAN M) PO SCH (06:21)
[2016-12-08] MEDS: SENNA W/DOCUSATE (SENOKOT S) TABLET PO SCH ×2 (07:59→20:36)
[2016-12-08] MEDS: LACTULOSE SYRUP 10GM/15ML (ENULOSE) 30ML UDC PO SCH ×2 (07:59→20:37)
[2016-12-08] MEDS: HYDROCHLOROTHIAZIDE 25 MG (HCTZ) TAB PO SCH (07:59)
[2016-12-08] MEDS: amLODIPine 5 MG (NORVASC) TAB PO SCH (07:59)
[2016-12-08] MEDS: POLYETHYLENE GLYCOL 17 GM (MIRALAX) PACK PO SCH ×3 (07:59→20:43)
[2016-12-08] MEDS: LIDOCAINE (LIDODERM) 5% PATCH TOP SCH (08:00)
[2016-12-08] MEDS: A & D OINT 60 GM TUBE TOP SCH (08:00)
[2016-12-08] MEDS: inSUlin (REGULAR) HUMAN 1 UNIT/0.01 ML (CHARGE PER UNIT) SC SCH ×3 (08:00→16:20)
[2016-12-08] MEDS: MICONAZOLE 2% POWDER (DESENEX AF) 90 GM TOP SCH ×2 (08:01→20:42)
[2016-12-08] MEDS: MENTHOL/ZINC OXIDE (CALMOSEPTINE) 113 GM TUBE TOP SCH ×2 (08:01→20:43)
--- NOTE | 2016-12-08 10:19 | PM & R (SOAP) Progress Note ---
Subjective Time Seen by Provider: 10:15 Subjective/Events-last exam Patient was seen in his room earlier today and on unit with PT at this time Patient ambulating with Bilateral platform walker with min assist Objective Exam Last Set of Vital Signs Vital Signs Date Time Temp Pulse Resp B/P (MAP) Pulse Ox O2 Delivery O2 Flow Rate FiO2 12/08/16 04:59 97.4 77 16 106/72 96 Room Air Capillary Refill : I&O Intake and Output 12/08/16 00:00 Intake Total 1200 ml Balance 1200 ml Intake Oral 1200 ml # Voids 6 General: Alert, Oriented X3, Cooperative, No Acute Distress HEENT: Atraumatic, PERRLA, EOMI, Mucous Memb Moist/[place] Neck: Supple, Other (inciasion healing well C Collar in place) Lungs: Clear to Auscultation Heart: Regular Rate Abdomen: Normal Bowel Sounds Extremities: Other (trace edema rt hand) Skin: Other (rt heel wrapped) Neuro: Other (2-3 strength rt UE Numbness rt hand) Results Lab Laboratory Tests 12/05/16 15:58: Glucometer 183H 12/06/16 07:02: Glucometer 125H 12/06/16 15:57: Glucometer 166H 12/07/16 06:28: Glucometer 126H 12/07/16 15:45: Glucometer 169H 12/08/16 05:47: Glucometer 132H Assessment/Plan Assessment Cervical spine spondylosis with myelopathy s/p decompression DR Atkinson affecting U Limbs more then Lower with strength gradually improving but remaining with 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 affecting ADL skills Dysphagia improved diet advanced- to regular consistency discussed with RN AMY on cpap HTN controlled DM with episode of hypoglycemia Dr juarez has adjusted insulin -improved HLP Intolerance to oxy-disturbed sleep Pressure sore rt heel-improving DJD Left Knee DJD left Hip S/P rt HIP relacement DR Cantu remote Trochanteric bursitis left hip s/p Injection DR Riley Hypokalemia-replaced Plan Continue PT/OT/Pain management F/U with Hospitalist and DR Atkinson as per their schedule Trend Accucheks and adjust insulin as needed Pain management Changed meds-improved Wound care reconsult to check rt heel -see orders-done as per above Patient doing better with switch to hydrocodone for pain-less side effects report Discussed discharge options.with SW. Check Xray left hip-done Consult ortho re possible injection for pain control-done Team Conference held 12-02-16-See report for full functional update and POC and ELOS Pain management Trial of Lidoderm patch-in progress. Continue wit paraffin baths for hands with OT as indicated Rechecked Labs K supplement ordered Reconference tomorrow 12-09-16 recheck labs JOSEY SALINAS MD Dec 08, 2016 10:19
--- NOTE | 2016-12-08 11:05 | Physical Therapy Daily Note ---
PT Daily Note-Current Subjective Patient in wheelchair pre tx, agrees to PT, states he has pain of 6/10 in right shoulder and left hip. Appearance Patient in power chair post tx Mental Status Patient Orientation: Normal For Age cervical collar Transfers Functional [place] Measure 0=Not Assessed/NA 4=Minimal Assistance 1=Total Assistance 5=Supervision or Setup 2=Maximal Assistance 6=Modified [place] 3=Moderate Assistance 7=Complete IndependenceIRFPAI Quality Coding Scale 6 Independent with activity with or without an assistive device 5 Patient requires set up or clean up by helper. Patient completes activity by themselves 4 Supervision or touching assist (CGA). [place] provide cues , steadying assist 3 The helper provides less than half the effort to complete the activity 2 The helper provides more than half the effort to complete the activity 1 Dependent. The helper does all the effort to complete an activity 7 Patient refused to complete or attempt activity 9 The patient did not perform the activity before the current illness or injury 88 Not attempted due to Medical conditions or safety concerns Transfers (B, C, W/C) (FIM): 4 Sit to/from Stand: 4 Bed to/from Chair: 4 Patient performs sit to stand and bed to chair transfer with min assist to both sides Gait Training Gait (FIM): 2 Distance: 120'x2 Gait Level of Assist: 4 Gait Persons Needed: 1 Patient ambulated 120'x2 using a bilateral platform walker with min assist. He ambulates slowly and has some difficulty advancing his feet but does not need assist with that, he does need some assist guiding the walker. Exercises Manually resisted leg press both legs 3 sets of 10 NuStep Minutes: 15 NuStep Workload: 6 (Lower extremity strengthening to improve ambulation and general mobility) Treatments transfers, ambulation, functional strengthening Assessment Current Status: Fair Progress slowly improving transfers and ambulation PT Short Term Goals Short Term Goals Time Frame: Nov 10, 2016 Gait (FIM): 1 (met) Gait Distance Comment: 10' Gait Level of Assist: 2 Gait Assistive Device: FWW, Walker Platform Wheelchair Distance: 150'x2 PT Interactive Account Manager Goals Interactive Account Manager Goals PT Interactive Account Manager Goals Time Frame: Nov 24, 2016 Transfers (B,C,W/C) (FIM): 4 Sit to Lying (QC): 3 Lying-Sitting on Side/Bed(QC): 3 Sit to Stand (QC): 3 Rollin Roll Left to Right (QC): 3 Chair/[id number]-Tcqxr Xfer(QC): 3 Gait (FIM): 1 Distance: 20' Walk 10 feet (QC): 2 Gait Level of Assist: 2 Gait Assistive Device: FWW, Walker Platform Wheelchair (FIM): 6 Distance: 500' Wheelchair Level of Assist: 6 Wheel 50 feet with 2 turns (QC: 6 PT Plan Problem List Problem List: Activity Tolerance, Functional Strength, Safety, Balance, Gait, Transfer, Bed Mobility, ROM Treatment/Plan Treatment Plan: Continue Plan of Care Treatment Plan: Bed Mobility, Education, Functional Activity Fady, Functional Strength, Group Therapy, Gait, Safety, Therapeutic Exercise, Transfers Treatment Duration: Nov 24, 2016 Frequency: At least 5-7 days/Wk (IRF) Estimated Hrs Per Day: 2 hours per day Patient and/or Family Agrees t: Yes Safety Risks/Education Patient Education: Gait Training, Transfer Techniques, Correct Positioning, Safety Issues Teaching Recipient: Patient Teaching Methods: Demonstration, Discussion Response to Teaching: Reinforcement Needed Time/GCodes Time In: 1000 Time Out: 1100 Total Billed Treatment Time: 60 Total Billed Treatment 1 visit GT 30' EX 30' CATALINA RUBI PT Dec 08, 2016 11:05
--- NOTE | 2016-12-08 11:40 | Occupational Ther Daily Note ---
OT Current Status-Daily Note Subjective Pt seen in room, up in power chair, agreeable to OT. No pain specifically mentioned. Appearance Alert, cooperative Mental Status/Objective Functional [place] Measure 0=Not Assessed/NA 4=Minimal Assistance 1=Total Assistance 5=Supervision or Setup 2=Maximal Assistance 6=Modified [place] 3=Moderate Assistance 7=Complete [place] ADL-Treatment Functional [place] Measure 0=Not Assessed/NA 4=Minimal Assistance 1=Total Assistance 5=Supervision or Setup 2=Maximal Assistance 6=Modified [place] 3=Moderate Assistance 7=Complete IndependenceIRFPAI Quality Coding Scale 6 Independent with activity with or without an assistive device 5 Patient requires set up or clean up by helper. Patient completes activity by themselves 4 Supervision or touching assist (CGA). [place] provide cues , steadying assist 3 The helper provides less than half the effort to complete the activity 2 The helper provides more than half the effort to complete the activity 1 Dependent. The helper does all the effort to complete an activity 7 Patient refused to complete or attempt activity 9 The patient did not perform the activity before the current illness or injury 88 Not attempted due to Medical conditions or safety concerns Other Treatment Pt took himself to the gym per power chair. Paraffin applied to R hand. Skilled facilitation techniques used to work on L shoulder strength and ROM (it tends to move into abduction instead of flexion), scapular movement bilat, R hand finger and thumb AROM and strength, R shoulder stretch and PROM. Gentle traction to R index MCP and able to get PROM to 90 degrees. Pt able to hold R middle, ring and little fingers to palm several times and tip of R index reached to about 1' from palm. Also worked on cupping R hand (movement of thumb and little finger primarily). Also able to stretch R shoulder to about 90 degrees passive and pt given several stretches that he can do on his own, in bed or up in chair. Pt took himself back to his room, all needs met. Education OT Patient Education: Purpose of tx/functional activities, Other (facilitaton techniques) Teaching Recipient: Patient Teaching Methods: Demonstration, Discussion Response to Teaching: Verbalize Understanding OT Short Term Goals Short Term Goals Time Frame: Nov 17, 2016 Eating(FIM): 4 Grooming(FIM): 3 Upper Body Dressing(FIM): 3 Lower Body Dressing(FIM): 3 Toileting(FIM): 3 Toilet/Commode Transfer(FIM): 3 Shower Transfer(FIM): 3 Additional Short Term Goals: 2-Verbalize Understanding, 3-ImproveStrength/Fady 1=Demonstrate adherence to instructed precautions during ADL tasks. 2=Patient will verbalize/demonstrate understanding of assistive devices/ modifications for ADL. 3=Patient will improve strength/tolerance for activity to enable patient to perform ADL's. OT Intermediate Goals Intermediate Goals Time Frame: Dec 01, 2016 Eating (FIM): 5 Eating (QC): 5 Groomin Oral Hygiene (QC): 5 Bathing(FIM): 5 Shower/Bathe Self (QC): 5 Upper Body Dressing(FIM): 5 Upper Body Dressing (QC): 5 Lower Body Dressing(FIM): 5 Lower Body Dressing (QC): 5 On/Off Footwear (QC): 4 Toileting(FIM): 5 Toileting Hygiene (QC): 5 Toilet/Commode Transfer(FIM): 5 Toilet/Commode Transfer (QC): 5 Shower Transfer(FIM): 5 Additional Goals: 2-Verbalize Understanding, 3-ImproveStrength/Fady 1=Demonstrate adherence to instructed precautions during ADL tasks. 2=Patient will verbalize/demonstrate understanding of assistive devices/ modifications for ADL. 3=Patient will improve strength/tolerance for activity to enable patient to perform ADL's. OT Education/Plan Problem List/Assessment Pt would benefit from skilled OT to increase his independence in basic self care to allow him to safely return to his home to live alone and to decrease caregiver burden. Discharge Recommendations Plan/Recommendations: Continue POC Treatment Plan/Plan of Care Patient would benefit from OT for education, treatment and training to promote independence in ADL's, mobility, safety and/or upper extremity function for ADL' s. Plan of Care: ADL Retraining, Functional Mobility, Group Exercise/Act as Ind ( education, exercise, activity tolerance, functional activities, socialization), UE Funct Exercise/Act, UE Neuromus Re-Ed/Coord, W/C Management Training Treatment Duration: Dec 01, 2016 Frequency: At least 5-7 days/Wk (IRF) Estimated Hrs Per Day: 1.5 hours per day Agreement: Yes Rehab Potential: Fair Time/GCodes Start Time: 08:30 Stop Time: 09:30 Total Time Billed (hr/min): 60 Billed Treatment Time visit, neuromotor 60 min, paraffin bath THAI HOOVER OT Dec 08, 2016 11:40
--- NOTE | 2016-12-08 13:59 | Physical Therapy Daily Note ---
PT Daily Note-Current Subjective Patient in wheelchair pre tx, agrees to PT, has pain of 5-6/10 in right shoulder and left hip. Appearance Patient in power chair post tx, has OT right after PT Mental Status Patient Orientation: Normal For Age cervical collar Transfers Functional [place] Measure 0=Not Assessed/NA 4=Minimal Assistance 1=Total Assistance 5=Supervision or Setup 2=Maximal Assistance 6=Modified [place] 3=Moderate Assistance 7=Complete IndependenceIRFPAI Quality Coding Scale 6 Independent with activity with or without an assistive device 5 Patient requires set up or clean up by helper. Patient completes activity by themselves 4 Supervision or touching assist (CGA). [place] provide cues , steadying assist 3 The helper provides less than half the effort to complete the activity 2 The helper provides more than half the effort to complete the activity 1 Dependent. The helper does all the effort to complete an activity 7 Patient refused to complete or attempt activity 9 The patient did not perform the activity before the current illness or injury 88 Not attempted due to Medical conditions or safety concerns Transfers (B, C, W/C) (FIM): 3 Scootin Rollin Supine to/from Sit: 2 Sit to/from Stand: 4 Bed to/from Chair: 4 Practiced bed mobility with patient and he performed it with mod assist, transfers with min assist Exercises sit to stand at the edge of the mat with chair in front for balance, patient performed 3 sets of 10 with progressively lower seat height Treatments bed mobility and transfers, functional strengthening Assessment Current Status: Fair Progress improved bed mobility PT Short Term Goals Short Term Goals Time Frame: Nov 10, 2016 Gait (FIM): 1 (met) Gait Distance Comment: 10' Gait Level of Assist: 2 Gait Assistive Device: FWW, Walker Platform Wheelchair Distance: 150'x2 PT Jail Goals Jail Goals PT Immigration Case Manager Goals Time Frame: Nov 24, 2016 Transfers (B,C,W/C) (FIM): 4 Sit to Lying (QC): 3 Lying-Sitting on Side/Bed(QC): 3 Sit to Stand (QC): 3 Rollin Roll Left to Right (QC): 3 Chair/Qga-ik-Kdhrt Xfer(QC): 3 Gait (FIM): 1 Distance: 20' Walk 10 feet (QC): 2 Gait Level of Assist: 2 Gait Assistive Device: FWW, Walker Platform Wheelchair (FIM): 6 Distance: 500' Wheelchair Level of Assist: 6 Wheel 50 feet with 2 turns (QC: 6 PT Plan Problem List Problem List: Activity Tolerance, Functional Strength, Safety, Balance, Gait, Transfer, Bed Mobility, ROM Treatment/Plan Treatment Plan: Continue Plan of Care Treatment Plan: Bed Mobility, Education, Functional Activity Fady, Functional Strength, Group Therapy, Gait, Safety, Therapeutic Exercise, Transfers Treatment Duration: Nov 24, 2016 Frequency: At least 5-7 days/Wk (IRF) Estimated Hrs Per Day: 2 hours per day Patient and/or Family Agrees t: Yes Safety Risks/Education Patient Education: Transfer Techniques, Correct Positioning, Safety Issues Teaching Recipient: Patient Teaching Methods: Demonstration, Discussion Response to Teaching: Reinforcement Needed Time/GCodes Time In: 1330 Time Out: 1400 Total Billed Treatment Time: 30 Total Billed Treatment 1 visit EX 10' FA 20' CATALINA RUBI PT Dec 08, 2016 13:59
--- NOTE | 2016-12-08 14:41 | Occupational Ther Daily Note ---
OT Current Status-Daily Note Subjective Pt seen in room, up in power chair, agreeable to OT. No pain mentioned. Mental Status/Objective Functional [place] Measure 0=Not Assessed/NA 4=Minimal Assistance 1=Total Assistance 5=Supervision or Setup 2=Maximal Assistance 6=Modified [place] 3=Moderate Assistance 7=Complete [place] ADL-Treatment Functional [place] Measure 0=Not Assessed/NA 4=Minimal Assistance 1=Total Assistance 5=Supervision or Setup 2=Maximal Assistance 6=Modified [place] 3=Moderate Assistance 7=Complete IndependenceIRFPAI Quality Coding Scale 6 Independent with activity with or without an assistive device 5 Patient requires set up or clean up by helper. Patient completes activity by themselves 4 Supervision or touching assist (CGA). [place] provide cues , steadying assist 3 The helper provides less than half the effort to complete the activity 2 The helper provides more than half the effort to complete the activity 1 Dependent. The helper does all the effort to complete an activity 7 Patient refused to complete or attempt activity 9 The patient did not perform the activity before the current illness or injury 88 Not attempted due to Medical conditions or safety concerns Eating (FIM): 5 (Pt was able to scoop rice with L hand and get it to his mouth , using commercially available spoon with built-up handle. Rice was in a container with straight sides so he was able to scoop easier. Dycem nonskid surface under container so that it didn't slide. He was also able to pharmacy picking technician and eat tacos without AD other than Dycem but did need setup. He could get a drink from a mug with a straw placed within reach (setup). Pt pleased with progress. ) Pt left up in power chair, call light in place, all needs met. Education OT Patient Education: Modified ADL techniques, Progress toward Goal/Update tx plan, Purpose of tx/functional activities, Use of adapted equipment Teaching Recipient: Patient Teaching Methods: Discussion Response to Teaching: Verbalize Understanding OT Short Term Goals Short Term Goals Time Frame: Nov 17, 2016 Eating(FIM): 4 Grooming(FIM): 3 Upper Body Dressing(FIM): 3 Lower Body Dressing(FIM): 3 Toileting(FIM): 3 Toilet/Commode Transfer(FIM): 3 Shower Transfer(FIM): 3 Additional Short Term Goals: 2-Verbalize Understanding, 3-ImproveStrength/Fady 1=Demonstrate adherence to instructed precautions during ADL tasks. 2=Patient will verbalize/demonstrate understanding of assistive devices/ modifications for ADL. 3=Patient will improve strength/tolerance for activity to enable patient to perform ADL's. OT Retirement Goals Records Assistant Goals Time Frame: Dec 01, 2016 Eating (FIM): 5 Eating (QC): 5 Groomin Oral Hygiene (QC): 5 Bathing(FIM): 5 Shower/Bathe Self (QC): 5 Upper Body Dressing(FIM): 5 Upper Body Dressing (QC): 5 Lower Body Dressing(FIM): 5 Lower Body Dressing (QC): 5 On/Off Footwear (QC): 4 Toileting(FIM): 5 Toileting Hygiene (QC): 5 Toilet/Commode Transfer(FIM): 5 Toilet/Commode Transfer (QC): 5 Shower Transfer(FIM): 5 Additional Goals: 2-Verbalize Understanding, 3-ImproveStrength/Fady 1=Demonstrate adherence to instructed precautions during ADL tasks. 2=Patient will verbalize/demonstrate understanding of assistive devices/ modifications for ADL. 3=Patient will improve strength/tolerance for activity to enable patient to perform ADL's. OT Education/Plan Problem List/Assessment Pt would benefit from skilled OT to increase his independence in basic self care to allow him to safely return to his home to live alone and to decrease caregiver burden. Discharge Recommendations Plan/Recommendations: Continue POC Treatment Plan/Plan of Care Patient would benefit from OT for education, treatment and training to promote independence in ADL's, mobility, safety and/or upper extremity function for ADL' s. Plan of Care: ADL Retraining, Functional Mobility, Group Exercise/Act as Ind ( education, exercise, activity tolerance, functional activities, socialization), UE Funct Exercise/Act, UE Neuromus Re-Ed/Coord, W/C Management Training Treatment Duration: Dec 01, 2016 Frequency: At least 5-7 days/Wk (IRF) Estimated Hrs Per Day: 1.5 hours per day Agreement: Yes Rehab Potential: Fair Time/GCodes Start Time: 14:05 Stop Time: 14:35 Total Time Billed (hr/min): 30 Billed Treatment Time visit, ADL 30 minutes THAI HOOVER OT Dec 08, 2016 14:41
--- NOTE | 2016-12-08 15:02 | Occ Therapy Rehab Re-Cert ---
OT Re-Certification Form Plan of Care: ADL Retraining, Caregiver Training, Functional Mobility, Group Exercise/Act as Ind (education, exercise, activity tolerance, functional activities, socialization), UE Funct Exercise/Act, UE Neuromus Re-Ed/Coord, W/C Management Training Pt has made progress toward goals and is regaining strength and coordination in his hands but has not met LTG yet. See updated treatment plan (terminal operations manager goals , frequency, duration, interventions), effective 12-01-16 and extend it for additional 28 days, to 12-29-16 Treatment Duration: 28 days to 12-29-16 Frequency: At least 5-7 days/Wk (IRF) Estimated Hrs Per Day: 1.5 hours per day Agreement: Yes Rehab Potential: Fair OT Short Term Goals Short Term Goals Time Frame: Nov 17, 2016 Eating(FIM): 4 Grooming(FIM): 3 Upper Body Dressing(FIM): 3 Lower Body Dressing(FIM): 3 Toileting(FIM): 3 Toilet/Commode Transfer(FIM): 3 Shower Transfer(FIM): 3 Additional Short Term Goals: 2-Verbalize Understanding, 3-ImproveStrength/Fady 1=Demonstrate adherence to instructed precautions during ADL tasks. 2=Patient will verbalize/demonstrate understanding of assistive devices/ modifications for ADL. 3=Patient will improve strength/tolerance for activity to enable patient to perform ADL's. OT Early Childhood Specialist Goals Early Childhood Specialist Goals Time Frame: Dec 01, 2016 Eating (FIM): 5 Grooming(FIM): 5 Bathing(FIM): 5 Upper Body Dressing(FIM): 5 Lower Body Dressing(FIM): 5 Toileting(FIM): 5 Toilet/Commode Transfer(FIM): 5 Shower Transfer(FIM): 5 Additional Goals: 2-Verbalize Understanding, 3-ImproveStrength/Fady 1=Demonstrate adherence to instructed precautions during ADL tasks. 2=Patient will verbalize/demonstrate understanding of assistive devices/ modifications for ADL. 3=Patient will improve strength/tolerance for activity to enable patient to perform ADL's. THAI HOOVER OT Dec 08, 2016 15:01
--- NOTE | 2016-12-08 15:05 | Physical Therapy Rehab Re-Cert ---
PT Re-Certification Form Physical Therapy Treatment Plan: Continue Plan of Care Bed Mobility, Education, Functional Activity Fady, Functional Strength, Group Therapy, Gait, Safety, Therapeutic Exercise, Transfers Patient continues to make slow progress with strength, transfers, bed mobility, ambulation, and balance. He has met all of his intermediate goals except for bed mobility, which he will need to improve for going home. Recommend continued PT intervention to continue to improve the above areas and get his bed mobility to min assist. Treatment Duration: 28 days Frequency: At least 5-7 days/Wk (IRF) Estimated Hrs Per Day: 1.5 hours per day Patient and/or Family Agrees t: Yes Rehab Potential: Fair PT Short Term Goals Short Term Goals Time Frame: Nov 10, 2016 Gait (FIM): 1 (met) Gait Distance Comment: 10' Gait Level of Assist: 2 Gait Assistive Device: FWW, Walker Platform Wheelchair Distance: 150'x2 PT Funeral Arrangement Director Goals Funeral Arrangement Director Goals PT Funeral Arrangement Director Goals Time Frame: Nov 24, 2016 Transfers (B,C,W/C) (FIM): 4 Gait (FIM): 1 Distance: 20' Gait Level of Assist: 2 Gait Assistive Device: FWW, Walker Platform Wheelchair (FIM): 6 Distance: 500' Wheelchair Level of Assist: 6 CATALINA RUBI PT Dec 08, 2016 15:05
[2016-12-08 18:13] VITALS: BP 120/79
[2016-12-08] MEDS: IRBESARTAN 150 MG (AVAPRO) TAB PO SCH (20:36)
[2016-12-09] MEDS: HYDROcodone/APAP 10 MG/325 MG (LORTAB) TAB PO PRN ×6 (00:45→20:58)
[2016-12-09] MEDS: DIAZEPAM 5 MG (VALIUM) TABLET PO PRN ×2 (01:22→23:27)
[2016-12-09 06:13] VITALS: BP 130/70
[2016-12-09] MEDS: KCL 20 MEQ TAB (K-DUR) PO SCH (07:15)
[2016-12-09] MEDS: MULTIVIT W/MINERALS TAB (THERAGRAN M) PO SCH (07:15)
[2016-12-09] MEDS: metFORMIN 500 MG (GLUCOPHAGE) TAB PO SCH ×2 (07:15→16:48)
[2016-12-09] MEDS: inSUlin (REGULAR) HUMAN 1 UNIT/0.01 ML (CHARGE PER UNIT) SC SCH ×3 (07:16→16:50)
[2016-12-09] MEDS: LACTULOSE SYRUP 10GM/15ML (ENULOSE) 30ML UDC PO SCH ×2 (08:49→20:58)
[2016-12-09] MEDS: HYDROCHLOROTHIAZIDE 25 MG (HCTZ) TAB PO SCH (08:49)
[2016-12-09] MEDS: amLODIPine 5 MG (NORVASC) TAB PO SCH (08:49)
[2016-12-09] MEDS: A & D OINT 60 GM TUBE TOP SCH (08:49)
[2016-12-09] MEDS: SENNA W/DOCUSATE (SENOKOT S) TABLET PO SCH ×2 (08:49→20:58)
[2016-12-09] MEDS: MICONAZOLE 2% POWDER (DESENEX AF) 90 GM TOP SCH ×2 (08:50→20:58)
[2016-12-09] MEDS: LIDOCAINE (LIDODERM) 5% PATCH TOP SCH (08:51)
[2016-12-09] MEDS: POLYETHYLENE GLYCOL 17 GM (MIRALAX) PACK PO SCH ×2 (08:51→20:58)
[2016-12-09] MEDS: MENTHOL/ZINC OXIDE (CALMOSEPTINE) 113 GM TUBE TOP SCH ×2 (08:51→21:01)
--- NOTE | 2016-12-09 09:25 | PM & R (SOAP) Progress Note ---
Subjective Time Seen by Provider: 08:15 Subjective/Events-last exam Patient was seen in his room this Am Continues to improve Patient min assist for transfers at times with therapy Objective Exam Last Set of Vital Signs Vital Signs Date Time Temp Pulse Resp B/P (MAP) Pulse Ox O2 Delivery O2 Flow Rate FiO2 12/09/16 06:13 98.2 89 22 130/70 95 Room Air Capillary Refill : I&O Intake and Output 12/09/16 00:00 Intake Total 900 ml Balance 900 ml Intake Oral 900 ml # Voids 6 General: Alert, Oriented X3, Cooperative, No Acute Distress HEENT: Atraumatic, PERRLA, EOMI, Mucous Memb Moist/Cool Neck: Supple, Other (inciasion healing well C Collar in place) Lungs: Clear to Auscultation Heart: Regular Rate Abdomen: Normal Bowel Sounds Extremities: Other (trace edema rt hand) Skin: Other (rt heel wrapped) Neuro: Other (2-3 strength rt UE Numbness rt hand) Results Lab Laboratory Tests 12/06/16 15:57: Glucometer 166H 12/07/16 06:28: Glucometer 126H 12/07/16 15:45: Glucometer 169H 12/08/16 05:47: Glucometer 132H 12/08/16 15:51: Glucometer 259H 12/09/16 05:33: Glucometer 124H Assessment/Plan Assessment Cervical spine spondylosis with myelopathy s/p decompression DR Atkinson affecting U Limbs more then Lower with strength gradually improving but remaining with 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 and 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 affecting ADL skills Dysphagia improved diet advanced- to regular consistency discussed with RN AMY on cpap HTN controlled DM with episode of hypoglycemia Dr juarez has adjusted insulin -improved HLP Intolerance to oxy-disturbed sleep Pressure sore rt heel-improving DJD Left Knee DJD left Hip S/P rt HIP relacement DR Cantu remote Trochanteric bursitis left hip s/p Injection DR Riley Hypokalemia-replaced Plan Continue PT/OT/Pain management F/U with Hospitalist and DR Atkinson as per their schedule Trend Accucheks and adjust insulin as needed Pain management Changed meds-improved Wound care reconsult to check rt heel -see orders-done as per above Patient doing better with switch to hydrocodone for pain-less side effects report Discussed discharge options.with SW. Check Xray left hip-done Consult ortho re possible injection for pain control-done Team Conference held 12-02-16-See report for full functional update and POC and ELOS Pain management Trial of Lidoderm patch-in progress. Continue wit paraffin baths for hands with OT as indicated Rechecked Labs K supplement ordered Reconference later today-See report for full functional update and POC and ELOS rechecked labs JOSEY SALINAS MD Dec 09, 2016 09:25
--- NOTE | 2016-12-09 10:34 | Progress Note-Hospitalist ---
Progress Note Progress Notes/Assess & Plan Date Seen 12/09/16 Time Seen by Provider: 10:00 Diagonsis/Assessment & Plan Patient Interview: Pt confirms having ambulated Pt states that when he DCs he will stay with his . He will have a medical bed there. Pt is planning to live on his own if his hands ever get better Pt states that his BMs have been about a day apart Patient doing ok NHP pending BM+ No pain is reported AFVSS, pleasant, O x 3, improved RRR, CTAB unchanged weakness of extremity movement and strength No edema Assessment: Status post cervical spine surgery stage II of 2 stage surgery for spinal cord compression Dysphagia due to edema from neck surgery now resolved Diabetes mellitus Obstructive sleep apnea compliant with treatment Hypertension Hyperlipidemia Status post narcotic bowel requiring soapsuds enema for disimpaction in past maintained on regimen Plan: DC with when possible Continue insulin as it is now Continue to ambulate Scribed by Michelle Garcia under the direct supervision of Dr. Duvall. KEANU DUVALL DO Dec 09, 2016 10:34
--- NOTE | 2016-12-09 11:06 | Physical Therapy Daily Note ---
PT Daily Note-Current Subjective Pt sitting in [facility] upon arrival. Pt reports wanting to use sit to stand lift to use restroom. Pt agrees to PT. Pain Numeric Pain Scale: 5-Moderate Pain Location: Dorsal Location Body Site: Back Pain Description: Ache Mental Status Patient Orientation: Person, Place, Time, Situation Transfers Functional [place] Measure 0=Not Assessed/NA 4=Minimal Assistance 1=Total Assistance 5=Supervision or Setup 2=Maximal Assistance 6=Modified [place] 3=Moderate Assistance 7=Complete IndependenceIRFPAI Quality Coding Scale 6 Independent with activity with or without an assistive device 5 Patient requires set up or clean up by helper. Patient completes activity by themselves 4 Supervision or touching assist (CGA). [place] provide cues , steadying assist 3 The helper provides less than half the effort to complete the activity 2 The helper provides more than half the effort to complete the activity 1 Dependent. The helper does all the effort to complete an activity 7 Patient refused to complete or attempt activity 9 The patient did not perform the activity before the current illness or injury 88 Not attempted due to Medical conditions or safety concerns Scootin Sit to/from Stand: 4 Sit to Stand (QC): 4 Weight Bearing Weight Bearing Restriction: Full Weight Bearing Location Restriction: LE Bilateral Gait Training Does the Patient Walk?: Yes Distance (FIM): 3=150 ft Distance: 150' Walk 10 feet (QC): 4 Walk 50 ft with 2 Turns(QC): 4 Walk 150 ft (QC): 4 Gait Level of Assist: 4 Gait Persons Needed: 1 Gait Assistive Device: Walker Platform Pt ambulates with slow but steady edel using double platform walker. Wheelchair Training Does the Pt Use a Wheelchair?: Yes Wheelchair Distance: 3=150 ft Distance: 150' Wheelchair Level of Assist: 5 Wheel 50 ft with 2 turns (QC): 5 Wheel 150 ft (QC): 5 Type of Wheelchair: Motorized Treatments Pt transferred using sit to stand lift for restroom use then back to motorized [facility]. Pt maneuvered [facility] down hallway to walk. Pt ambulated using double platform walker at CGA-Min A. Pt rested during ambulation. Pt returned to room to rest at end of tx with all needs met. Assessment Current Status: Good Progress Pt continues to work hard and make progress with ambulation and transfers although still lacking strength on L side. PT Short Term Goals Short Term Goals Time Frame: Nov 10, 2016 Gait (FIM): 1 (met) Gait Distance Comment: 10' Gait Level of Assist: 2 Gait Assistive Device: FWW, Walker Platform Wheelchair Distance: 150'x2 PT Half-Way Goals Half-Way Goals PT Cytotechnologist/Histotechnologist Goals Time Frame: Nov 24, 2016 Transfers (B,C,W/C) (FIM): 4 Sit to Lying (QC): 3 Lying-Sitting on Side/Bed(QC): 3 Sit to Stand (QC): 3 Rollin Roll Left to Right (QC): 3 Chair/Hai-kh-Orlnd Xfer(QC): 3 Gait (FIM): 1 Distance: 20' Walk 10 feet (QC): 2 Gait Level of Assist: 2 Gait Assistive Device: FWW, Walker Platform Wheelchair (FIM): 6 Distance: 500' Wheelchair Level of Assist: 6 Wheel 50 feet with 2 turns (QC: 6 PT Plan Problem List Problem List: Activity Tolerance, Functional Strength, Safety, Balance, Gait, Transfer Treatment/Plan Treatment Plan: Continue Plan of Care Treatment Plan: Bed Mobility, Education, Functional Activity Fady, Functional Strength, Group Therapy, Gait, Safety, Therapeutic Exercise, Transfers Treatment Duration: Nov 24, 2016 Frequency: At least 5-7 days/Wk (IRF) Estimated Hrs Per Day: 1.5 hours per day Patient and/or Family Agrees t: Yes Safety Risks/Education Patient Education: Gait Training, Transfer Techniques, Correct Positioning, W/ C Management, Safety Issues Teaching Recipient: Patient Teaching Methods: Discussion Response to Teaching: Verbalize Understanding Time/GCodes Time In: 1000 Time Out: 1100 Total Billed Treatment Time: 60 Total Billed Treatment visit, GT x2 (30m) & FA x2 (30m) GILA CRYSTAL BUS VAN DRIVER Dec 09, 2016 11:06
--- NOTE | 2016-12-09 11:53 | Occupational Ther Daily Note ---
OT Current Status-Daily Note Subjective Pt seen in room, up in power chair, agreeable to OT. waiting for pain meds Appearance Alert, cooperative, flat affect Mental Status/Objective Functional [place] Measure 0=Not Assessed/NA 4=Minimal Assistance 1=Total Assistance 5=Supervision or Setup 2=Maximal Assistance 6=Modified [place] 3=Moderate Assistance 7=Complete [place] ADL-Treatment Pt propelled power chair to accessible bathroom and positioned chair at sink to shave and brush teeth. He was able to get washcloth wet and wash face to prep it for shaving. Help to put shaving cream on. He put universal cuff on with just a little education and tightened strap with d ring. Once set up, he shaved over 75% of his face, just having difficulty angling razor to get neck on L side. He also rinsed face off but needed help rinsing razor while shaving. He brushed his teeth with setup, using universal cuff, and rinsed mouth with setup of glass with straw. Unable to brush hair. Overall 75% min assist with grooming. He reported that he fed himself most of his breakfast - it is somewhat dependant on what he chooses to eat. Functional [place] Measure 0=Not Assessed/NA 4=Minimal Assistance 1=Total Assistance 5=Supervision or Setup 2=Maximal Assistance 6=Modified [place] 3=Moderate Assistance 7=Complete IndependenceIRFPAI Quality Coding Scale 6 Independent with activity with or without an assistive device 5 Patient requires set up or clean up by helper. Patient completes activity by themselves 4 Supervision or touching assist (CGA). [place] provide cues , steadying assist 3 The helper provides less than half the effort to complete the activity 2 The helper provides more than half the effort to complete the activity 1 Dependent. The helper does all the effort to complete an activity 7 Patient refused to complete or attempt activity 9 The patient did not perform the activity before the current illness or injury 88 Not attempted due to Medical conditions or safety concerns Grooming (FIM): 4 Other Treatment Pt propelled chair to gym, where OT used skilled facilitation techniques including vibration and gentle joint mobilization to increase ROM fingers and thumb R hand and increase strength in opposition. Pt also did shoulder and scapular exercises and stretches to increase functional use UEs at shoulders. Pt took himself back to his room, all needs met. Education OT Patient Education: Modified ADL techniques, Progress toward Goal/Update tx plan, Purpose of tx/functional activities, Use of adapted equipment Teaching Recipient: Patient Teaching Methods: Discussion Response to Teaching: Return Demonstration OT Short Term Goals Short Term Goals Time Frame: Nov 17, 2016 Eating(FIM): 4 Grooming(FIM): 3 Upper Body Dressing(FIM): 3 Lower Body Dressing(FIM): 3 Toileting(FIM): 3 Toilet/Commode Transfer(FIM): 3 Shower Transfer(FIM): 3 Additional Short Term Goals: 2-Verbalize Understanding, 3-ImproveStrength/Fady 1=Demonstrate adherence to instructed precautions during ADL tasks. 2=Patient will verbalize/demonstrate understanding of assistive devices/ modifications for ADL. 3=Patient will improve strength/tolerance for activity to enable patient to perform ADL's. OT Zoning Technician Goals Zoning Technician Goals Time Frame: Dec 01, 2016 Eating (FIM): 5 Eating (QC): 5 Groomin Oral Hygiene (QC): 5 Bathing(FIM): 5 Shower/Bathe Self (QC): 5 Upper Body Dressing(FIM): 5 Upper Body Dressing (QC): 5 Lower Body Dressing(FIM): 5 Lower Body Dressing (QC): 5 On/Off Footwear (QC): 4 Toileting(FIM): 5 Toileting Hygiene (QC): 5 Toilet/Commode Transfer(FIM): 5 Toilet/Commode Transfer (QC): 5 Shower Transfer(FIM): 5 Additional Goals: 2-Verbalize Understanding, 3-ImproveStrength/Fady 1=Demonstrate adherence to instructed precautions during ADL tasks. 2=Patient will verbalize/demonstrate understanding of assistive devices/ modifications for ADL. 3=Patient will improve strength/tolerance for activity to enable patient to perform ADL's. OT Education/Plan Problem List/Assessment Pt would benefit from skilled OT to increase his independence in basic self care to allow him to safely return to his home to live alone and to decrease caregiver burden. Discharge Recommendations Plan/Recommendations: Continue POC Treatment Plan/Plan of Care Patient would benefit from OT for education, treatment and training to promote independence in ADL's, mobility, safety and/or upper extremity function for ADL' s. Plan of Care: ADL Retraining, Caregiver Training, Functional Mobility, Group Exercise/Act as Ind (education, exercise, activity tolerance, functional activities, socialization), UE Funct Exercise/Act, UE Neuromus Re-Ed/Coord, W/C Management Training Treatment Duration: Dec 01, 2016 Frequency: At least 5-7 days/Wk (IRF) Estimated Hrs Per Day: 1.5 hours per day Agreement: Yes Rehab Potential: Fair Time/GCodes Start Time: 08:30 Stop Time: 09:30 Total Time Billed (hr/min): 60 Billed Treatment Time visit, 40 minutes ADL, 20 minutes neuromotor THAI HOOVER OT Dec 09, 2016 11:53
--- NOTE | 2016-12-09 14:56 | Physical Therapy Daily Note ---
PT Daily Note-Current Subjective Pt sitting in [facility] upon arrival. Pt finishes conversation with Ex & bank before tx. Pt agreed to PT. Mental Status Patient Orientation: Person, Place, Time, Situation Transfers Functional [place] Measure 0=Not Assessed/NA 4=Minimal Assistance 1=Total Assistance 5=Supervision or Setup 2=Maximal Assistance 6=Modified [place] 3=Moderate Assistance 7=Complete IndependenceIRFPAI Quality Coding Scale 6 Independent with activity with or without an assistive device 5 Patient requires set up or clean up by helper. Patient completes activity by themselves 4 Supervision or touching assist (CGA). [place] provide cues , steadying assist 3 The helper provides less than half the effort to complete the activity 2 The helper provides more than half the effort to complete the activity 1 Dependent. The helper does all the effort to complete an activity 7 Patient refused to complete or attempt activity 9 The patient did not perform the activity before the current illness or injury 88 Not attempted due to Medical conditions or safety concerns Scootin Sit to/from Stand: 4 Sit to Stand (QC): 4 Weight Bearing Weight Bearing Restriction: Full Weight Bearing Location Restriction: LE Bilateral Exercises NuStep Minutes: 10 NuStep Workload: 3 Treatments Pt completes transfers from [facility] using SPT. Pt uses NuStep for ROM, strengthening & activity tolerance. Pt returns to room to rest at end of tx with all needs met. Assessment Current Status: Good Progress Pt continues to work hard and making progress despite weakness on L side. PT Short Term Goals Short Term Goals Time Frame: Nov 10, 2016 Gait (FIM): 1 (met) Gait Distance Comment: 10' Gait Level of Assist: 2 Gait Assistive Device: FWW, Walker Platform Wheelchair Distance: 150' PT Broke Worker Goals Broke Worker Goals PT Broke Worker Goals Time Frame: Nov 24, 2016 Transfers (B,C,W/C) (FIM): 4 Sit to Lying (QC): 3 Lying-Sitting on Side/Bed(QC): 3 Sit to Stand (QC): 3 Rollin Roll Left to Right (QC): 3 Chair/Rfr-qc-Ouhed Xfer(QC): 3 Gait (FIM): 1 Distance: 20' Walk 10 feet (QC): 2 Gait Level of Assist: 2 Gait Assistive Device: FWW, Walker Platform Wheelchair (FIM): 6 Distance: 500' Wheelchair Level of Assist: 6 Wheel 50 feet with 2 turns (QC: 6 PT Plan Problem List Problem List: Activity Tolerance, Functional Strength, Safety, Balance, Gait, Transfer Treatment/Plan Treatment Plan: Continue Plan of Care Treatment Plan: Bed Mobility, Education, Functional Activity Fady, Functional Strength, Group Therapy, Gait, Safety, Therapeutic Exercise, Transfers Treatment Duration: Nov 24, 2016 Frequency: At least 5-7 days/Wk (IRF) Estimated Hrs Per Day: 1.5 hours per day Patient and/or Family Agrees t: Yes Safety Risks/Education Patient Education: Gait Training, Transfer Techniques, Correct Positioning, Safety Issues Teaching Recipient: Patient Teaching Methods: Discussion Response to Teaching: Verbalize Understanding Time/GCodes Time In: 1330 Time Out: 1400 Total Billed Treatment Time: 30 Total Billed Treatment visit, FA (15m) & EX (15m) GILA CRYSTAL KILN BURNER HELPER Dec 09, 2016 14:56
--- NOTE | 2016-12-09 15:13 | Occupational Ther Daily Note ---
OT Current Status-Daily Note Subjective Pt seen in gym, finishing PT. Pleased to do NuStep with bilat hands (using adapted holders). No pain mentioned. Appearance Alert, cooperative Mental Status/Objective Functional [place] Measure 0=Not Assessed/NA 4=Minimal Assistance 1=Total Assistance 5=Supervision or Setup 2=Maximal Assistance 6=Modified [place] 3=Moderate Assistance 7=Complete [place] ADL-Treatment Functional [place] Measure 0=Not Assessed/NA 4=Minimal Assistance 1=Total Assistance 5=Supervision or Setup 2=Maximal Assistance 6=Modified [place] 3=Moderate Assistance 7=Complete IndependenceIRFPAI Quality Coding Scale 6 Independent with activity with or without an assistive device 5 Patient requires set up or clean up by helper. Patient completes activity by themselves 4 Supervision or touching assist (CGA). [place] provide cues , steadying assist 3 The helper provides less than half the effort to complete the activity 2 The helper provides more than half the effort to complete the activity 1 Dependent. The helper does all the effort to complete an activity 7 Patient refused to complete or attempt activity 9 The patient did not perform the activity before the current illness or injury 88 Not attempted due to Medical conditions or safety concerns Other Treatment Pt seen in gym after PT. paraffin bath applied R hand to provide heat to increase ROM R hand. While paraffin working, pt did L UE ex with 1# weight on arm, working on shoulder abd, flex and horizontal abd. Also, elbow flex/ext and pron/sup. Skilled facilitation techniques used to strengthen shoulder flex ( tends to move into abduction). Also worked on stretch to increase L elbow extension. With R hand, gentle joint mob to R index, lynette MCP to increase flex. Worked on opposition - able to touch thumb to index and middle fingers but not ring and little fingers. hand responds well to the paraffin. Pt took himself back to his room, all needs met. Education OT Patient Education: Purpose of tx/functional activities, Other (facilitaton techniques) Teaching Recipient: Patient Teaching Methods: Demonstration, Discussion Response to Teaching: Verbalize Understanding OT Short Term Goals Short Term Goals Time Frame: Nov 17, 2016 Eating(FIM): 4 Grooming(FIM): 3 Upper Body Dressing(FIM): 3 Lower Body Dressing(FIM): 3 Toileting(FIM): 3 Toilet/Commode Transfer(FIM): 3 Shower Transfer(FIM): 3 Additional Short Term Goals: 2-Verbalize Understanding, 3-ImproveStrength/Fady 1=Demonstrate adherence to instructed precautions during ADL tasks. 2=Patient will verbalize/demonstrate understanding of assistive devices/ modifications for ADL. 3=Patient will improve strength/tolerance for activity to enable patient to perform ADL's. OT Correction Goals Correction Goals Time Frame: Dec 01, 2016 Eating (FIM): 5 Eating (QC): 5 Groomin Oral Hygiene (QC): 5 Bathing(FIM): 5 Shower/Bathe Self (QC): 5 Upper Body Dressing(FIM): 5 Upper Body Dressing (QC): 5 Lower Body Dressing(FIM): 5 Lower Body Dressing (QC): 5 On/Off Footwear (QC): 4 Toileting(FIM): 5 Toileting Hygiene (QC): 5 Toilet/Commode Transfer(FIM): 5 Toilet/Commode Transfer (QC): 5 Shower Transfer(FIM): 5 Additional Goals: 2-Verbalize Understanding, 3-ImproveStrength/Fady 1=Demonstrate adherence to instructed precautions during ADL tasks. 2=Patient will verbalize/demonstrate understanding of assistive devices/ modifications for ADL. 3=Patient will improve strength/tolerance for activity to enable patient to perform ADL's. OT Education/Plan Problem List/Assessment Pt would benefit from skilled OT to increase his independence in basic self care to allow him to safely return to his home to live alone and to decrease caregiver burden. Discharge Recommendations Plan/Recommendations: Continue POC Treatment Plan/Plan of Care Patient would benefit from OT for education, treatment and training to promote independence in ADL's, mobility, safety and/or upper extremity function for ADL' s. Plan of Care: ADL Retraining, Caregiver Training, Functional Mobility, Group Exercise/Act as Ind (education, exercise, activity tolerance, functional activities, socialization), UE Funct Exercise/Act, UE Neuromus Re-Ed/Coord, W/C Management Training Treatment Duration: Dec 01, 2016 Frequency: At least 5-7 days/Wk (IRF) Estimated Hrs Per Day: 1.5 hours per day Agreement: Yes Rehab Potential: Fair Time/GCodes Start Time: 14:05 Stop Time: 14:35 Total Time Billed (hr/min): 30 Billed Treatment Time visit, 30 minutes neuromotor, paraffin bath THAI HOOVER OT Dec 09, 2016 15:13
[2016-12-09 18:39] VITALS: BP 117/74
[2016-12-09] MEDS: IRBESARTAN 150 MG (AVAPRO) TAB PO SCH (20:58)
[2016-12-10] MEDS: HYDROcodone/APAP 10 MG/325 MG (LORTAB) TAB PO PRN ×5 (01:39→20:30)
[2016-12-10 06:13] VITALS: BP 122/81
[2016-12-10] MEDS: KCL 20 MEQ TAB (K-DUR) PO SCH (06:17)
[2016-12-10] MEDS: MULTIVIT W/MINERALS TAB (THERAGRAN M) PO SCH (06:17)
[2016-12-10] MEDS: metFORMIN 500 MG (GLUCOPHAGE) TAB PO SCH ×2 (06:18→16:43)
[2016-12-10] MEDS: inSUlin (REGULAR) HUMAN 1 UNIT/0.01 ML (CHARGE PER UNIT) SC SCH ×3 (06:58→17:00)
--- NOTE | 2016-12-10 07:48 | PM & R (SOAP) Progress Note ---
Subjective Time Seen by Provider: 07:00 Subjective/Events-last exam Patient was seen in his room this AM Patient eating his breakfast with setup and extra time Family to come in for training Objective Exam Last Set of Vital Signs Vital Signs Date Time Temp Pulse Resp B/P (MAP) Pulse Ox O2 Delivery O2 Flow Rate FiO2 12/10/16 06:13 97.5 86 20 122/81 95 Room Air Capillary Refill : I&O Intake and Output 12/10/16 00:00 Intake Total 1650 ml Balance 1650 ml Intake Oral 1650 ml # Voids 8 # Bowel Movements 1 General: Alert, No Acute Distress HEENT: Atraumatic, PERRLA, EOMI, Mucous Memb Moist/[place] Neck: Supple, Other (inciasion healing well C Collar in place) Lungs: Normal Air Movement Heart: Regular Rate Abdomen: Normal Bowel Sounds Extremities: Other (trace edema rt hand) Skin: Other (rt heel wrapped) Neuro: Other (Quadriplegia, incomplete.) Results Lab Laboratory Tests 12/07/16 15:45: Glucometer 169H 12/08/16 05:47: Glucometer 132H 12/08/16 15:51: Glucometer 259H 12/09/16 05:33: Glucometer 124H 12/09/16 16:37: Glucometer 106 12/10/16 06:16: Glucometer 127H Assessment/Plan Assessment Cervical spine spondylosis with myelopathy s/p decompression DR Atkinson affecting U Limbs more then Lower with strength gradually improving but remaining with impaired vice president compliance strength affecting ADL skills Dysphagia improved diet advanced- to regular consistency discussed with RN AMY on cpap HTN controlled DM with episode of hypoglycemia Dr juarez has adjusted insulin -improved HLP Intolerance to oxy-disturbed sleep Pressure sore rt heel-improving DJD Left Knee DJD left Hip S/P rt HIP relacement DR Cantu remote Trochanteric bursitis left hip s/p Injection DR Riley Hypokalemia-replaced Plan Continue PT/OT/Pain management F/U with Hospitalist and DR Atkinson as per their schedule Trend Accucheks and adjust insulin as needed Pain management Changed meds-improved Wound care reconsult to check rt heel -see orders-done as per above Patient doing better with switch to hydrocodone for pain-less side effects report Discussed discharge options.with SW. Check Xray left hip-done Consult ortho re possible injection for pain control-done Pain management Trial of Lidoderm patch-in progress. Continue wit paraffin baths for hands with OT as indicated Rechecked Labs K supplement ordered Reconferenced yesterday-See report for full functional update and POC and ELOS rechecked labs Family training Discussed case with evening RN JOSEY SALINAS MD Dec 10, 2016 07:48
[2016-12-10] MEDS: amLODIPine 5 MG (NORVASC) TAB PO SCH (08:33)
[2016-12-10] MEDS: SENNA W/DOCUSATE (SENOKOT S) TABLET PO SCH ×2 (08:33→20:31)
[2016-12-10] MEDS: LIDOCAINE (LIDODERM) 5% PATCH TOP SCH (08:33)
[2016-12-10] MEDS: HYDROCHLOROTHIAZIDE 25 MG (HCTZ) TAB PO SCH (08:33)
[2016-12-10] MEDS: DIAZEPAM 5 MG (VALIUM) TABLET PO PRN ×3 (08:46→23:45)
[2016-12-10] MEDS: MENTHOL/ZINC OXIDE (CALMOSEPTINE) 113 GM TUBE TOP SCH ×2 (08:49→20:36)
[2016-12-10] MEDS: A & D OINT 60 GM TUBE TOP SCH (08:49)
[2016-12-10] MEDS: MICONAZOLE 2% POWDER (DESENEX AF) 90 GM TOP SCH ×2 (08:49→20:36)
[2016-12-10] MEDS: POLYETHYLENE GLYCOL 17 GM (MIRALAX) PACK PO SCH ×2 (10:27→20:30)
[2016-12-10] MEDS: LACTULOSE SYRUP 10GM/15ML (ENULOSE) 30ML UDC PO SCH ×2 (10:28→20:29)
--- NOTE | 2016-12-10 10:52 | Physical Therapy Daily Note ---
PT Daily Note-Current Subjective Pt sitting in motorized [facility] upon arrival. Pt rates pain at 6-7/10 at beginning of tx but will increase with activity. Pt agrees to PT. Pain Numeric Pain Scale: 7 Location: Right Location Body Site: Hip Mental Status Patient Orientation: Person, Place, Time, Situation Attachments: Other-See Comments (Neck Brace) Transfers Functional [place] Measure 0=Not Assessed/NA 4=Minimal Assistance 1=Total Assistance 5=Supervision or Setup 2=Maximal Assistance 6=Modified [place] 3=Moderate Assistance 7=Complete IndependenceIRFPAI Quality Coding Scale 6 Independent with activity with or without an assistive device 5 Patient requires set up or clean up by helper. Patient completes activity by themselves 4 Supervision or touching assist (CGA). [place] provide cues , steadying assist 3 The helper provides less than half the effort to complete the activity 2 The helper provides more than half the effort to complete the activity 1 Dependent. The helper does all the effort to complete an activity 7 Patient refused to complete or attempt activity 9 The patient did not perform the activity before the current illness or injury 88 Not attempted due to Medical conditions or safety concerns Scootin Sit to/from Stand: 4 Sit to Stand (QC): 4 Weight Bearing Weight Bearing Restriction: Full Weight Bearing Location Restriction: LE Bilateral Gait Training Does the Patient Walk?: Yes Distance (FIM): 3=150 ft Distance: 175' Walk 10 feet (QC): 4 Walk 50 ft with 2 Turns(QC): 4 Walk 150 ft (QC): 4 Gait Level of Assist: 4 Gait Persons Needed: 1 Gait Assistive Device: Walker Platform Pt has popping & grinding while ambulating. Pt uses double platform walker. Wheelchair Training Does the Pt Use a Wheelchair?: Yes Wheelchair Distance: 3=150 ft Distance: 150' Wheelchair Level of Assist: 5 Wheel 50 ft with 2 turns (QC): 5 Wheel 150 ft (QC): 5 Type of Wheelchair: Manual Pt only needs assistance putting seatbelt on and pt can maneuver [facility] by himself. Exercises NuStep Minutes: 15 NuStep Workload: 3 Treatments Pt transfers from [facility] to standing at Min A using double platform walker. Pt ambulates in hallway using walker at CGA-Min A before entering Therapy Gym. Pt uses NuStep for 15m at Workload 3. Pt transfers at [facility] to and from NuStep. Pt see OT for tx at end of PT tx with all needs met. Assessment Current Status: Fair Progress Pt reports more pain during tx but pt doesn't let this limit activity. PT Short Term Goals Short Term Goals Time Frame: Nov 10, 2016 Gait (FIM): 1 (met) Gait Distance Comment: 10' Gait Level of Assist: 2 Gait Assistive Device: FWW, Walker Platform Wheelchair Distance: 150' PT Mcfp Goals Mcfp Goals PT Qa Automation Engineer Goals Time Frame: Nov 24, 2016 Transfers (B,C,W/C) (FIM): 4 Sit to Lying (QC): 3 Lying-Sitting on Side/Bed(QC): 3 Sit to Stand (QC): 3 Rollin Roll Left to Right (QC): 3 Chair/Eve-jg-Kpqwa Xfer(QC): 3 Gait (FIM): 1 Distance: 20' Walk 10 feet (QC): 2 Gait Level of Assist: 2 Gait Assistive Device: FWW, Walker Platform Wheelchair (FIM): 6 Distance: 500' Wheelchair Level of Assist: 6 Wheel 50 feet with 2 turns (QC: 6 PT Plan Problem List Problem List: Activity Tolerance, Functional Strength, Safety, Balance, Gait, Transfer Treatment/Plan Treatment Plan: Continue Plan of Care Treatment Plan: Bed Mobility, Education, Functional Activity Fady, Functional Strength, Group Therapy, Gait, Safety, Therapeutic Exercise, Transfers Treatment Duration: Nov 24, 2016 Frequency: At least 5-7 days/Wk (IRF) Estimated Hrs Per Day: 1.5 hours per day Patient and/or Family Agrees t: Yes Safety Risks/Education Patient Education: Gait Training, Transfer Techniques, Safety Issues Teaching Recipient: Patient Teaching Methods: Discussion Response to Teaching: Verbalize Understanding Time/GCodes Time In: 1000 Time Out: 1100 Total Billed Treatment Time: 60 Total Billed Treatment visit, GT X2 (30m) , EX (15m) & FA (15m) GILA CRYSTAL DOG FOOD SHREDDER OPERATOR Dec 10, 2016 10:52
--- NOTE | 2016-12-10 12:30 | Occupational Ther Daily Note ---
OT Current Status-Daily Note Subjective Pt seen in room, up in bed, agreeable to OT. No pain mentioned Appearance Alert, cooperative, flat affect Mental Status/Objective Functional [place] Measure 0=Not Assessed/NA 4=Minimal Assistance 1=Total Assistance 5=Supervision or Setup 2=Maximal Assistance 6=Modified [place] 3=Moderate Assistance 7=Complete [place] ADL-Treatment Pt agreed to ADLs. Uses HOB up. Sit to sit EOB with SBA. Always needs help to get cervical collar off/on. Sit to stand from elevated bed min assist, a little help to manage FWW with platforms, stand pivot transfer min assist toward BSC, then "drops" to BSC, controlled with mod assist, because he can't reach back easily for arms of commode. Toileting - Pt is able to help manage clothing a little (Pants to thighs) but cannot do hygiene. Uses BSC with flat seat, not toilet seat style. Mod assist to get up off BSC because it is lower than bed. Once up and positioned on platforms, he needs just CGA to maintain standing. Bathing - sponge bath sitting on BSC. Able to wash most of R arm, chest, abdomen , kaleb in front, thighs and a little on lower legs - 60%. Used adapted wash cloth, like a mitt. Dressing - mod assist to doff and don t-shirt. Pt able to pharmacy picking tech feet to place them in pants legs but unable to balance, hold on to pants and pick feet up all at the same time. Can pull pants up to thighs but not turn hands loose to pull pants up over hips. Unable to do socks and shoes. Grooming - washed face and hands during bath. Pt stood with FWW while BSC removed and power chair positioned behind him - but two people required. Pt left up in chair, all needs met. Functional [place] Measure 0=Not Assessed/NA 4=Minimal Assistance 1=Total Assistance 5=Supervision or Setup 2=Maximal Assistance 6=Modified [place] 3=Moderate Assistance 7=Complete IndependenceIRFPAI Quality Coding Scale 6 Independent with activity with or without an assistive device 5 Patient requires set up or clean up by helper. Patient completes activity by themselves 4 Supervision or touching assist (CGA). [place] provide cues , steadying assist 3 The helper provides less than half the effort to complete the activity 2 The helper provides more than half the effort to complete the activity 1 Dependent. The helper does all the effort to complete an activity 7 Patient refused to complete or attempt activity 9 The patient did not perform the activity before the current illness or injury 88 Not attempted due to Medical conditions or safety concerns Bathing (FIM): 3 Upper Body (FIM): 3 Lower Body Dressing (QC): 2 Toileting (FIM): 1 (Can help a little but less than 25%) Transfers (B, C, W/C) (FIM): 1 Toilet/Commode Transfer (FIM): 3 Education OT Patient Education: Modified ADL techniques, Progress toward Goal/Update tx plan, Purpose of tx/functional activities, Transfer techniques Teaching Recipient: Patient Teaching Methods: Demonstration, Discussion Response to Teaching: Verbalize Understanding, Return Demonstration, Reinforcement Needed OT Short Term Goals Short Term Goals Time Frame: Nov 17, 2016 Eating(FIM): 4 Grooming(FIM): 3 Upper Body Dressing(FIM): 3 Lower Body Dressing(FIM): 3 Toileting(FIM): 3 Toilet/Commode Transfer(FIM): 3 Shower Transfer(FIM): 3 Additional Short Term Goals: 2-Verbalize Understanding, 3-ImproveStrength/Fady 1=Demonstrate adherence to instructed precautions during ADL tasks. 2=Patient will verbalize/demonstrate understanding of assistive devices/ modifications for ADL. 3=Patient will improve strength/tolerance for activity to enable patient to perform ADL's. OT Registered Dental Assistant Goals Registered Dental Assistant Goals Time Frame: Dec 01, 2016 Eating (FIM): 5 Eating (QC): 5 Groomin Oral Hygiene (QC): 5 Bathing(FIM): 5 Shower/Bathe Self (QC): 5 Upper Body Dressing(FIM): 5 Upper Body Dressing (QC): 5 Lower Body Dressing(FIM): 5 Lower Body Dressing (QC): 5 On/Off Footwear (QC): 4 Toileting(FIM): 5 Toileting Hygiene (QC): 5 Toilet/Commode Transfer(FIM): 5 Toilet/Commode Transfer (QC): 5 Shower Transfer(FIM): 5 Additional Goals: 2-Verbalize Understanding, 3-ImproveStrength/Fady 1=Demonstrate adherence to instructed precautions during ADL tasks. 2=Patient will verbalize/demonstrate understanding of assistive devices/ modifications for ADL. 3=Patient will improve strength/tolerance for activity to enable patient to perform ADL's. OT Education/Plan Problem List/Assessment Pt would benefit from skilled OT to increase his independence in basic self care to allow him to safely return to his home to live alone and to decrease caregiver burden. Discharge Recommendations Plan/Recommendations: Continue POC Treatment Plan/Plan of Care Patient would benefit from OT for education, treatment and training to promote independence in ADL's, mobility, safety and/or upper extremity function for ADL' s. Plan of Care: ADL Retraining, Caregiver Training, Functional Mobility, Group Exercise/Act as Ind (education, exercise, activity tolerance, functional activities, socialization), UE Funct Exercise/Act, UE Neuromus Re-Ed/Coord, W/C Management Training Treatment Duration: Dec 01, 2016 Frequency: At least 5-7 days/Wk (IRF) Estimated Hrs Per Day: 1.5 hours per day Agreement: Yes Rehab Potential: Fair Time/GCodes Start Time: 08:30 Stop Time: 09:30 Total Time Billed (hr/min): 60 Billed Treatment Time visit, 60 minutes ADL THAI HOOVER OT Dec 10, 2016 12:30
--- NOTE | 2016-12-10 12:43 | Occupational Ther Daily Note ---
OT Current Status-Daily Note Subjective Pt seen in gym, up in recliner, agreeable to OT. Appearance Flat affect Mental Status/Objective Functional [place] Measure 0=Not Assessed/NA 4=Minimal Assistance 1=Total Assistance 5=Supervision or Setup 2=Maximal Assistance 6=Modified [place] 3=Moderate Assistance 7=Complete [place] ADL-Treatment Patient, OT and social worker palliative care discussed specialized equipment needs for discharge. Identified adapted silverware, adapted plate, writing utensil, bedside commode style, universal cuff with D ring, and other specific equipment such as sit to stand lift. Will not know what bathing chair will be needed until we have a picture of shower at home where he will be going. Discussed how he will manage ADLs while his is at work - and he is not realistic in his current abilities. He said that he will use a urinal while up in power chair so we will practice that (he has tried it seated at bedside but says that "pinches his plumbing" and doesn't work.). He indicated that he would just "pop up" from his bed and get on the commode and then into his chair - but he is not independent with transfers at this time. he is understandably concerned about cost of providers but we want his discharge to be safe and successful. Will also do family teaching when available. Pt took himself to his room and ordered his own lunch with setup to give him the phone. All needs met. Functional [place] Measure 0=Not Assessed/NA 4=Minimal Assistance 1=Total Assistance 5=Supervision or Setup 2=Maximal Assistance 6=Modified [place] 3=Moderate Assistance 7=Complete IndependenceIRFPAI Quality Coding Scale 6 Independent with activity with or without an assistive device 5 Patient requires set up or clean up by helper. Patient completes activity by themselves 4 Supervision or touching assist (CGA). [place] provide cues , steadying assist 3 The helper provides less than half the effort to complete the activity 2 The helper provides more than half the effort to complete the activity 1 Dependent. The helper does all the effort to complete an activity 7 Patient refused to complete or attempt activity 9 The patient did not perform the activity before the current illness or injury 88 Not attempted due to Medical conditions or safety concerns Education OT Patient Education: Purpose of tx/functional activities, Use of adapted equipment Teaching Recipient: Patient Teaching Methods: Discussion Response to Teaching: Verbalize Understanding OT Short Term Goals Short Term Goals Time Frame: Nov 17, 2016 Eating(FIM): 4 Grooming(FIM): 3 Upper Body Dressing(FIM): 3 Lower Body Dressing(FIM): 3 Toileting(FIM): 3 Toilet/Commode Transfer(FIM): 3 Shower Transfer(FIM): 3 Additional Short Term Goals: 2-Verbalize Understanding, 3-ImproveStrength/Fady 1=Demonstrate adherence to instructed precautions during ADL tasks. 2=Patient will verbalize/demonstrate understanding of assistive devices/ modifications for ADL. 3=Patient will improve strength/tolerance for activity to enable patient to perform ADL's. OT Staff Pharmacist Goals Half-Way Goals Time Frame: Dec 01, 2016 Eating (FIM): 5 Eating (QC): 5 Groomin Oral Hygiene (QC): 5 Bathing(FIM): 5 Shower/Bathe Self (QC): 5 Upper Body Dressing(FIM): 5 Upper Body Dressing (QC): 5 Lower Body Dressing(FIM): 5 Lower Body Dressing (QC): 5 On/Off Footwear (QC): 4 Toileting(FIM): 5 Toileting Hygiene (QC): 5 Toilet/Commode Transfer(FIM): 5 Toilet/Commode Transfer (QC): 5 Shower Transfer(FIM): 5 Additional Goals: 2-Verbalize Understanding, 3-ImproveStrength/Fady 1=Demonstrate adherence to instructed precautions during ADL tasks. 2=Patient will verbalize/demonstrate understanding of assistive devices/ modifications for ADL. 3=Patient will improve strength/tolerance for activity to enable patient to perform ADL's. OT Education/Plan Problem List/Assessment Pt would benefit from skilled OT to increase his independence in basic self care to allow him to safely return to his home to live alone and to decrease caregiver burden. Discharge Recommendations Plan/Recommendations: Continue POC Treatment Plan/Plan of Care Patient would benefit from OT for education, treatment and training to promote independence in ADL's, mobility, safety and/or upper extremity function for ADL' s. Plan of Care: ADL Retraining, Caregiver Training, Functional Mobility, Group Exercise/Act as Ind (education, exercise, activity tolerance, functional activities, socialization), UE Funct Exercise/Act, UE Neuromus Re-Ed/Coord, W/C Management Training Treatment Duration: Dec 01, 2016 Frequency: At least 5-7 days/Wk (IRF) Estimated Hrs Per Day: 1.5 hours per day Agreement: Yes Rehab Potential: Fair Time/GCodes Start Time: 11:00 Stop Time: 11:35 Total Time Billed (hr/min): 30 Billed Treatment Time visit, 35 minutes ADL THAI HOOVER OT Dec 10, 2016 12:43
--- NOTE | 2016-12-10 14:27 | Physical Therapy Daily Note ---
PT Daily Note-Current Subjective Pt sitting in [facility] upon arrival. Pt had just been finishing his icecream and agreed to PT. Pain Numeric Pain Scale: 7 Location: Right Location Body Site: Hip Pain Description: Ache Mental Status Patient Orientation: Person, Place, Time, Situation Attachments: Other-See Comments (Neck Brace) Transfers Functional [place] Measure 0=Not Assessed/NA 4=Minimal Assistance 1=Total Assistance 5=Supervision or Setup 2=Maximal Assistance 6=Modified [place] 3=Moderate Assistance 7=Complete IndependenceIRFPAI Quality Coding Scale 6 Independent with activity with or without an assistive device 5 Patient requires set up or clean up by helper. Patient completes activity by themselves 4 Supervision or touching assist (CGA). [place] provide cues , steadying assist 3 The helper provides less than half the effort to complete the activity 2 The helper provides more than half the effort to complete the activity 1 Dependent. The helper does all the effort to complete an activity 7 Patient refused to complete or attempt activity 9 The patient did not perform the activity before the current illness or injury 88 Not attempted due to Medical conditions or safety concerns Scootin Sit to/from Stand: 4 Sit to Stand (QC): 4 Chair/Qct-sk-Prgxs Xfer(QC): 4 Bed to/from Chair: 4 Weight Bearing Weight Bearing Restriction: Full Weight Bearing Location Restriction: LE Bilateral Wheelchair Training Does the Pt Use a Wheelchair?: Yes Wheelchair Distance: 3=150 ft Distance: 150' Wheelchair Level of Assist: 5 Wheel 50 ft with 2 turns (QC): 5 Wheel 150 ft (QC): 5 Type of Wheelchair: Motorized Exercises [facility] Minutes: 15 Treatments Pt transferred from [facility] to [facility] and used for 15m with Workload 3. Pt returned to [facility] and returned to room to rest at end of tx with all needs met. Assessment Current Status: Fair Progress Pt reports increase in R hip & shoulder pain with activity although pt doesn't limit tx. PT Short Term Goals Short Term Goals Time Frame: Nov 10, 2016 Gait (FIM): 1 (met) Gait Distance Comment: 10' Gait Level of Assist: 2 Gait Assistive Device: FWW, Walker Platform Wheelchair Distance: 150' PT Penitentiary Goals [facility] Goals PT Suit Attendant Goals Time Frame: Nov 24, 2016 Transfers (B,C,W/C) (FIM): 4 Sit to Lying (QC): 3 Lying-Sitting on Side/Bed(QC): 3 Sit to Stand (QC): 3 Rollin Roll Left to Right (QC): 3 Chair/[id number]-Itqvc Xfer(QC): 3 Gait (FIM): 1 Distance: 20' Walk 10 feet (QC): 2 Gait Level of Assist: 2 Gait Assistive Device: FWW, Walker Platform Wheelchair (FIM): 6 Distance: 500' Wheelchair Level of Assist: 6 Wheel 50 feet with 2 turns (QC: 6 PT Plan Problem List Problem List: Activity Tolerance, Functional Strength, Safety, Balance, Gait, Transfer Treatment/Plan Treatment Plan: Continue Plan of Care Treatment Plan: Bed Mobility, Education, Functional Activity Fady, Functional Strength, Group Therapy, Gait, Safety, Therapeutic Exercise, Transfers Treatment Duration: Nov 24, 2016 Frequency: At least 5-7 days/Wk (IRF) Estimated Hrs Per Day: 1.5 hours per day Patient and/or Family Agrees t: Yes Safety Risks/Education Patient Education: Transfer Techniques, Correct Positioning, Safety Issues Teaching Recipient: Patient Teaching Methods: Discussion Response to Teaching: Verbalize Understanding Time/GCodes Time In: 1310 Time Out: 1340 Total Billed Treatment Time: 30 Total Billed Treatment visit, EX (15m) & FA (15m) GILA CRYSTAL PTA Dec 10, 2016 14:27
[2016-12-10 17:08] VITALS: BP 135/84
[2016-12-10] MEDS: IRBESARTAN 150 MG (AVAPRO) TAB PO SCH (20:29)
[2016-12-11] MEDS: HYDROcodone/APAP 10 MG/325 MG (LORTAB) TAB PO PRN ×5 (01:27→20:08)
[2016-12-11 05:00] VITALS: BP 138/89
[2016-12-11] MEDS: KCL 20 MEQ TAB (K-DUR) PO SCH (06:04)
[2016-12-11] MEDS: MULTIVIT W/MINERALS TAB (THERAGRAN M) PO SCH (06:04)
[2016-12-11] MEDS: metFORMIN 500 MG (GLUCOPHAGE) TAB PO SCH ×2 (06:04→17:04)
[2016-12-11] MEDS: amLODIPine 5 MG (NORVASC) TAB PO SCH (07:59)
[2016-12-11] MEDS: LACTULOSE SYRUP 10GM/15ML (ENULOSE) 30ML UDC PO SCH ×2 (07:59→20:09)
[2016-12-11] MEDS: HYDROCHLOROTHIAZIDE 25 MG (HCTZ) TAB PO SCH (07:59)
[2016-12-11] MEDS: inSUlin (REGULAR) HUMAN 1 UNIT/0.01 ML (CHARGE PER UNIT) SC SCH ×3 (08:01→18:53)
[2016-12-11] MEDS: SENNA W/DOCUSATE (SENOKOT S) TABLET PO SCH ×2 (08:02→20:08)
[2016-12-11] MEDS: POLYETHYLENE GLYCOL 17 GM (MIRALAX) PACK PO SCH ×2 (08:02→20:09)
[2016-12-11] MEDS: LIDOCAINE (LIDODERM) 5% PATCH TOP SCH (08:02)
[2016-12-11] MEDS: MENTHOL/ZINC OXIDE (CALMOSEPTINE) 113 GM TUBE TOP SCH ×2 (08:02→20:10)
[2016-12-11] MEDS: MICONAZOLE 2% POWDER (DESENEX AF) 90 GM TOP SCH ×2 (08:02→20:11)
[2016-12-11] MEDS: A & D OINT 60 GM TUBE TOP SCH (08:03)
--- NOTE | 2016-12-11 09:25 | PM & R (SOAP) Progress Note ---
Subjective Time Seen by Provider: 08:15 Subjective/Events-last exam Patient was seen in his room this AM Continues to improve Patient now min assist for transfers and gait with platform walker Objective Exam Last Set of Vital Signs Vital Signs Date Time Temp Pulse Resp B/P (MAP) Pulse Ox O2 Delivery O2 Flow Rate FiO2 12/11/16 05:00 97.8 81 20 138/89 98 Room Air Capillary Refill : I&O Intake and Output 12/11/16 00:00 Intake Total 2035 ml Balance 2035 ml Intake Oral 2035 ml # Voids 11 General: Alert, No Acute Distress HEENT: Atraumatic, PERRLA, EOMI, Mucous Memb Moist/[place] Neck: Supple, Other (inciasion healing well C Collar in place) Lungs: Normal Air Movement Heart: Regular Rate Abdomen: Normal Bowel Sounds Extremities: Other (trace edema rt hand) Skin: Other (rt heel wrapped) Neuro: Other (Quadriplegia, incomplete.) Results Lab Laboratory Tests 12/08/16 15:51: Glucometer 259H 12/09/16 05:33: Glucometer 124H 12/09/16 16:37: Glucometer 106 12/10/16 06:16: Glucometer 127H 12/10/16 16:42: Glucometer 170H 12/11/16 06:02: Glucometer 131H Assessment/Plan Assessment Cervical spine spondylosis with myelopathy s/p decompression DR Atkinson affecting U Limbs more then Lower with strength gradually improving but remaining with impaired press worker helper strength affecting ADL skills Dysphagia improved diet advanced- to regular consistency discussed with RN AMY on cpap HTN controlled DM with episode of hypoglycemia Dr juarez has adjusted insulin -improved HLP Intolerance to oxy-disturbed sleep Pressure sore rt heel-improving DJD Left Knee DJD left Hip S/P rt HIP relacement DR Cantu remote Trochanteric bursitis left hip s/p Injection DR Riley Hypokalemia-replaced Plan Continue PT/OT/Pain management F/U with Hospitalist and DR Atkinson as per their schedule Trend Accucheks and adjust insulin as needed Pain management Changed meds-improved Wound care reconsult to check rt heel -see orders-done as per above Patient doing better with switch to hydrocodone for pain-less side effects report Discussed discharge options.with SW. Check Xray left hip-done Consult ortho re possible injection for pain control-done Pain management Trial of Lidoderm patch-in progress. Continue wit paraffin baths for hands with OT as indicated Rechecked Labs K supplement ordered rechecked labs Family training Discharge set tentatively for next week 12/16/16 JOSEY SALINAS MD Dec 11, 2016 09:25
--- NOTE | 2016-12-11 11:01 | Physical Therapy Daily Note ---
PT Daily Note-Current Subjective Patient in wheelchair pre tx, agrees to PT, has pain of 6/10 in right shoulder and left hip. Appearance Patient in wheelchair post tx, he has OT right after PT. Mental Status Patient Orientation: Normal For Age cervical collar Transfers Functional [place] Measure 0=Not Assessed/NA 4=Minimal Assistance 1=Total Assistance 5=Supervision or Setup 2=Maximal Assistance 6=Modified [place] 3=Moderate Assistance 7=Complete IndependenceIRFPAI Quality Coding Scale 6 Independent with activity with or without an assistive device 5 Patient requires set up or clean up by helper. Patient completes activity by themselves 4 Supervision or touching assist (CGA). [place] provide cues , steadying assist 3 The helper provides less than half the effort to complete the activity 2 The helper provides more than half the effort to complete the activity 1 Dependent. The helper does all the effort to complete an activity 7 Patient refused to complete or attempt activity 9 The patient did not perform the activity before the current illness or injury 88 Not attempted due to Medical conditions or safety concerns Transfers (B, C, W/C) (FIM): 4 Sit to/from Stand: 4 Bed to/from Chair: 4 Gait Training Gait (FIM): 2 Distance: 120'x2 Gait Level of Assist: 4 Gait Persons Needed: 1 Patient ambulated 120'x2 with min assist and using a bilateral platform walker. He needs assist with guiding the walker. Patient also ambulated 20' with min assist using a regular rolling walker, he had a more difficult time with this because he cannot bear as much weight through his arms this way and he needs assist guiding the walker. Exercises sit to stand 3 sets of 10 Treatments transfers, ambulation, functional strengthening Assessment Current Status: Fair Progress improving ambulation, patient instructed to not have nursing use the sit to stand machine for transfers anymore PT Short Term Goals Short Term Goals Time Frame: Nov 10, 2016 Gait (FIM): 1 (met) Gait Distance Comment: 10' Gait Level of Assist: 2 Gait Assistive Device: FWW, Walker Platform Wheelchair Distance: 150' PT Executive Vice President Business Development Goals Executive Vice President Business Development Goals PT Executive Vice President Business Development Goals Time Frame: Nov 24, 2016 Transfers (B,C,W/C) (FIM): 4 Sit to Lying (QC): 3 Lying-Sitting on Side/Bed(QC): 3 Sit to Stand (QC): 3 Rollin Roll Left to Right (QC): 3 Chair/Fbf-hb-Mhizc Xfer(QC): 3 Gait (FIM): 1 Distance: 20' Walk 10 feet (QC): 2 Gait Level of Assist: 2 Gait Assistive Device: FWW, Walker Platform Wheelchair (FIM): 6 Distance: 500' Wheelchair Level of Assist: 6 Wheel 50 feet with 2 turns (QC: 6 PT Plan Problem List Problem List: Activity Tolerance, Functional Strength, Safety, Balance, Gait, Transfer, Bed Mobility, ROM Treatment/Plan Treatment Plan: Continue Plan of Care Treatment Plan: Bed Mobility, Education, Functional Activity Fady, Functional Strength, Group Therapy, Gait, Safety, Therapeutic Exercise, Transfers Treatment Duration: Nov 24, 2016 Frequency: At least 5-7 days/Wk (IRF) Estimated Hrs Per Day: 1.5 hours per day Patient and/or Family Agrees t: Yes Safety Risks/Education Patient Education: Gait Training, Transfer Techniques, Correct Positioning, Safety Issues Teaching Recipient: Patient Teaching Methods: Demonstration, Discussion Response to Teaching: Reinforcement Needed Time/GCodes Time In: 1000 Time Out: 1100 Total Billed Treatment Time: 60 Total Billed Treatment 1 visit EX 10' FA 15' GT 35' CATALINA RUBI PT Dec 11, 2016 11:01
--- NOTE | 2016-12-11 12:13 | Occupational Ther Daily Note ---
OT Current Status-Daily Note Subjective Pt seen in room, up in bed, agreeable to OT. No pain mentioned. Appearance Alert, cooperative, concerned about medical insurance coverage for future Mental Status/Objective Functional [place] Measure 0=Not Assessed/NA 4=Minimal Assistance 1=Total Assistance 5=Supervision or Setup 2=Maximal Assistance 6=Modified [place] 3=Moderate Assistance 7=Complete [place] ADL-Treatment Pt had shower last night and was in clean clothes. With head of bed elevated, pt scooted to EOB without help. Pt still needs help putting socks and shoes on. Tried Shoe Funnel for help to put shoes on - it worked well and he was able to pull it off shoe when done but he was not able to put the funnel on his shoe and then put his shoes on the floor (funnel fell off). He would also need elastic shoe laces. With bed raised up, he was able to stand with almost SBA, then transferred to w/c with min assist, help managing legs of walker for safety. Pt encouraged to reach back with L arm to control sitting and sat with min assist. He was able to scoot to swing leg rest out of the way, scoot to the edge of the chair, manage shorts and use the urinal, holding it with his L hand. He needed help to empty it. Nursing shown how he can do this and they will encourage him to use urinal while up in power chair. Pt propelled w/c to accessible bathroom and position chair at sink with just a little help. He needs help to take cervical collar off/on because it's hard to grasp the velcro on it. He used an electric hair braden and was able to shave somewhat. Discussed that he could probably use an electric razor to shave, most likely one with rotary heads. He was able to put universal cuff on himself, then setup to brush teeth and rinse his mouth. Talked about toothpaste with pump top. Pt making good progress with increased use of hands for ADLs. pt took himself back to his room, all needs met. Functional [place] Measure 0=Not Assessed/NA 4=Minimal Assistance 1=Total Assistance 5=Supervision or Setup 2=Maximal Assistance 6=Modified [place] 3=Moderate Assistance 7=Complete IndependenceIRFPAI Quality Coding Scale 6 Independent with activity with or without an assistive device 5 Patient requires set up or clean up by helper. Patient completes activity by themselves 4 Supervision or touching assist (CGA). [place] provide cues , steadying assist 3 The helper provides less than half the effort to complete the activity 2 The helper provides more than half the effort to complete the activity 1 Dependent. The helper does all the effort to complete an activity 7 Patient refused to complete or attempt activity 9 The patient did not perform the activity before the current illness or injury 88 Not attempted due to Medical conditions or safety concerns Education OT Patient Education: Modified ADL techniques, Progress toward Goal/Update tx plan, Purpose of tx/functional activities, Use of adapted equipment Teaching Recipient: Patient, Primary Caregiver (nursing) Teaching Methods: Demonstration, Discussion Response to Teaching: Verbalize Understanding, Return Demonstration OT Short Term Goals Short Term Goals Time Frame: Nov 17, 2016 Eating(FIM): 4 Grooming(FIM): 3 Upper Body Dressing(FIM): 3 Lower Body Dressing(FIM): 3 Toileting(FIM): 3 Toilet/Commode Transfer(FIM): 3 Shower Transfer(FIM): 3 Additional Short Term Goals: 2-Verbalize Understanding, 3-ImproveStrength/Fady 1=Demonstrate adherence to instructed precautions during ADL tasks. 2=Patient will verbalize/demonstrate understanding of assistive devices/ modifications for ADL. 3=Patient will improve strength/tolerance for activity to enable patient to perform ADL's. OT Twisting Department End Finder Goals Care Home Goals Time Frame: Dec 01, 2016 Eating (FIM): 5 Eating (QC): 5 Groomin Oral Hygiene (QC): 5 Bathing(FIM): 5 Shower/Bathe Self (QC): 5 Upper Body Dressing(FIM): 5 Upper Body Dressing (QC): 5 Lower Body Dressing(FIM): 5 Lower Body Dressing (QC): 5 On/Off Footwear (QC): 4 Toileting(FIM): 5 Toileting Hygiene (QC): 5 Toilet/Commode Transfer(FIM): 5 Toilet/Commode Transfer (QC): 5 Shower Transfer(FIM): 5 Additional Goals: 2-Verbalize Understanding, 3-ImproveStrength/Fady 1=Demonstrate adherence to instructed precautions during ADL tasks. 2=Patient will verbalize/demonstrate understanding of assistive devices/ modifications for ADL. 3=Patient will improve strength/tolerance for activity to enable patient to perform ADL's. OT Education/Plan Problem List/Assessment Pt would benefit from skilled OT to increase his independence in basic self care to allow him to safely return to his home to live alone and to decrease caregiver burden. Discharge Recommendations Plan/Recommendations: Continue POC Treatment Plan/Plan of Care Patient would benefit from OT for education, treatment and training to promote independence in ADL's, mobility, safety and/or upper extremity function for ADL' s. Plan of Care: ADL Retraining, Caregiver Training, Functional Mobility, Group Exercise/Act as Ind (education, exercise, activity tolerance, functional activities, socialization), UE Funct Exercise/Act, UE Neuromus Re-Ed/Coord, W/C Management Training Treatment Duration: Dec 01, 2016 Frequency: At least 5-7 days/Wk (IRF) Estimated Hrs Per Day: 1.5 hours per day Agreement: Yes Rehab Potential: Fair Time/GCodes Start Time: 08:30 Stop Time: 09:30 Total Time Billed (hr/min): 60 Billed Treatment Time visit, 60 minutes ADL THAI HOOVER OT Dec 11, 2016 12:13
--- NOTE | 2016-12-11 12:21 | Occupational Ther Daily Note ---
OT Current Status-Daily Note Subjective Pt seen in gym after PT, agreeable to OT. No pain mentioned. Mental Status/Objective Functional [place] Measure 0=Not Assessed/NA 4=Minimal Assistance 1=Total Assistance 5=Supervision or Setup 2=Maximal Assistance 6=Modified [place] 3=Moderate Assistance 7=Complete [place] ADL-Treatment Functional [place] Measure 0=Not Assessed/NA 4=Minimal Assistance 1=Total Assistance 5=Supervision or Setup 2=Maximal Assistance 6=Modified [place] 3=Moderate Assistance 7=Complete IndependenceIRFPAI Quality Coding Scale 6 Independent with activity with or without an assistive device 5 Patient requires set up or clean up by helper. Patient completes activity by themselves 4 Supervision or touching assist (CGA). [place] provide cues , steadying assist 3 The helper provides less than half the effort to complete the activity 2 The helper provides more than half the effort to complete the activity 1 Dependent. The helper does all the effort to complete an activity 7 Patient refused to complete or attempt activity 9 The patient did not perform the activity before the current illness or injury 88 Not attempted due to Medical conditions or safety concerns Other Treatment Pt was able to reach for on table top and stack 14 cones with R hand, lifting cones up to 12" off table top. With L hand, he could reach for cones in various planes and stack them (18 cones). This is a definite improvement with R hand. He also worked with 1" blocks, picking them up with some difficulty with R hand and then placing them to recreate a pattern. He could stack one block on another with incoordination. With L hand he could scrap picker and stack blocks three high. Continues to make improvements in coordination. Pt also does stretches and ROM on his own, which he will have to do with home health or OP OT. Pt returned to room, all needs met. Education OT Patient Education: Progress toward Goal/Update tx plan, Purpose of tx/ functional activities Teaching Recipient: Patient Teaching Methods: Discussion Response to Teaching: Verbalize Understanding OT Short Term Goals Short Term Goals Time Frame: Nov 17, 2016 Eating(FIM): 4 Grooming(FIM): 3 Upper Body Dressing(FIM): 3 Lower Body Dressing(FIM): 3 Toileting(FIM): 3 Toilet/Commode Transfer(FIM): 3 Shower Transfer(FIM): 3 Additional Short Term Goals: 2-Verbalize Understanding, 3-ImproveStrength/Fady 1=Demonstrate adherence to instructed precautions during ADL tasks. 2=Patient will verbalize/demonstrate understanding of assistive devices/ modifications for ADL. 3=Patient will improve strength/tolerance for activity to enable patient to perform ADL's. OT Forestry Conservation Worker Goals Forestry Conservation Worker Goals Time Frame: Dec 01, 2016 Eating (FIM): 5 Eating (QC): 5 Groomin Oral Hygiene (QC): 5 Bathing(FIM): 5 Shower/Bathe Self (QC): 5 Upper Body Dressing(FIM): 5 Upper Body Dressing (QC): 5 Lower Body Dressing(FIM): 5 Lower Body Dressing (QC): 5 On/Off Footwear (QC): 4 Toileting(FIM): 5 Toileting Hygiene (QC): 5 Toilet/Commode Transfer(FIM): 5 Toilet/Commode Transfer (QC): 5 Shower Transfer(FIM): 5 Additional Goals: 2-Verbalize Understanding, 3-ImproveStrength/Fady 1=Demonstrate adherence to instructed precautions during ADL tasks. 2=Patient will verbalize/demonstrate understanding of assistive devices/ modifications for ADL. 3=Patient will improve strength/tolerance for activity to enable patient to perform ADL's. OT Education/Plan Problem List/Assessment Pt would benefit from skilled OT to increase his independence in basic self care to allow him to safely return to his home to live alone and to decrease caregiver burden. Discharge Recommendations Plan/Recommendations: Continue POC Treatment Plan/Plan of Care Patient would benefit from OT for education, treatment and training to promote independence in ADL's, mobility, safety and/or upper extremity function for ADL' s. Plan of Care: ADL Retraining, Caregiver Training, Functional Mobility, Group Exercise/Act as Ind (education, exercise, activity tolerance, functional activities, socialization), UE Funct Exercise/Act, UE Neuromus Re-Ed/Coord, W/C Management Training Treatment Duration: Dec 01, 2016 Frequency: At least 5-7 days/Wk (IRF) Estimated Hrs Per Day: 1.5 hours per day Agreement: Yes Rehab Potential: Fair Time/GCodes Start Time: 11:00 Stop Time: 11:30 Total Time Billed (hr/min): 30 Billed Treatment Time visit, 30 minutes neuromotor THAI HOOVER OT Dec 11, 2016 12:21
--- NOTE | 2016-12-11 13:32 | Physical Therapy Daily Note ---
PT Daily Note-Current Subjective Patient in wheelchair pre tx, agrees to PT, has pain of 6/10 in right shoulder and left leg. Appearance Patient in wheelchair post tx Mental Status Patient Orientation: Normal For Age cervical collar Transfers Functional [place] Measure 0=Not Assessed/NA 4=Minimal Assistance 1=Total Assistance 5=Supervision or Setup 2=Maximal Assistance 6=Modified [place] 3=Moderate Assistance 7=Complete IndependenceIRFPAI Quality Coding Scale 6 Independent with activity with or without an assistive device 5 Patient requires set up or clean up by helper. Patient completes activity by themselves 4 Supervision or touching assist (CGA). [place] provide cues , steadying assist 3 The helper provides less than half the effort to complete the activity 2 The helper provides more than half the effort to complete the activity 1 Dependent. The helper does all the effort to complete an activity 7 Patient refused to complete or attempt activity 9 The patient did not perform the activity before the current illness or injury 88 Not attempted due to Medical conditions or safety concerns Transfers (B, C, W/C) (FIM): 4 Sit to/from Stand: 4 Bed to/from Chair: 4 Exercises NuStep Minutes: 15 NuStep Workload: 6 Treatments transfers, functional strengthening Assessment Current Status: Fair Progress improving transfers PT Short Term Goals Short Term Goals Time Frame: Nov 10, 2016 Gait (FIM): 1 (met) Gait Distance Comment: 10' Gait Level of Assist: 2 Gait Assistive Device: FWW, Walker Platform Wheelchair Distance: 150' PT Net Wpf Developer Goals Net Wpf Developer Goals PT Net Wpf Developer Goals Time Frame: Nov 24, 2016 Transfers (B,C,W/C) (FIM): 4 Sit to Lying (QC): 3 Lying-Sitting on Side/Bed(QC): 3 Sit to Stand (QC): 3 Rollin Roll Left to Right (QC): 3 Chair/Bar-bp-Zujli Xfer(QC): 3 Gait (FIM): 1 Distance: 20' Walk 10 feet (QC): 2 Gait Level of Assist: 2 Gait Assistive Device: FWW, Walker Platform Wheelchair (FIM): 6 Distance: 500' Wheelchair Level of Assist: 6 Wheel 50 feet with 2 turns (QC: 6 PT Plan Problem List Problem List: Activity Tolerance, Functional Strength, Safety, Balance, Gait, Transfer, Bed Mobility, ROM Treatment/Plan Treatment Plan: Continue Plan of Care Treatment Plan: Bed Mobility, Education, Functional Activity Fady, Functional Strength, Group Therapy, Gait, Safety, Therapeutic Exercise, Transfers Treatment Duration: Nov 24, 2016 Frequency: At least 5-7 days/Wk (IRF) Estimated Hrs Per Day: 1.5 hours per day Patient and/or Family Agrees t: Yes Safety Risks/Education Patient Education: Transfer Techniques, Correct Positioning, Safety Issues Teaching Recipient: Patient Teaching Methods: Demonstration, Discussion Response to Teaching: Reinforcement Needed Time/GCodes Time In: 1300 Time Out: 1330 Total Billed Treatment Time: 30 Total Billed Treatment 1 visit FA 15' EX 15' CATALINA RUBI PT Dec 11, 2016 13:32
[2016-12-11] MEDS: DIAZEPAM 5 MG (VALIUM) TABLET PO PRN ×2 (14:07→20:09)
[2016-12-11 17:02] VITALS: BP 129/79
[2016-12-11] MEDS: IRBESARTAN 150 MG (AVAPRO) TAB PO SCH (20:09)
[2016-12-12] MEDS: HYDROcodone/APAP 10 MG/325 MG (LORTAB) TAB PO PRN ×5 (00:52→20:58)
[2016-12-12 06:00] VITALS: BP 144/90
[2016-12-12] MEDS: KCL 20 MEQ TAB (K-DUR) PO SCH (06:20)
[2016-12-12] MEDS: MULTIVIT W/MINERALS TAB (THERAGRAN M) PO SCH (06:20)
[2016-12-12] MEDS: metFORMIN 500 MG (GLUCOPHAGE) TAB PO SCH ×2 (06:20→16:27)
[2016-12-12] MEDS: amLODIPine 5 MG (NORVASC) TAB PO SCH (08:45)
[2016-12-12] MEDS: SENNA W/DOCUSATE (SENOKOT S) TABLET PO SCH ×2 (08:45→20:00)
[2016-12-12] MEDS: POLYETHYLENE GLYCOL 17 GM (MIRALAX) PACK PO SCH ×2 (08:45→20:01)
[2016-12-12] MEDS: HYDROCHLOROTHIAZIDE 25 MG (HCTZ) TAB PO SCH (08:45)
[2016-12-12] MEDS: LACTULOSE SYRUP 10GM/15ML (ENULOSE) 30ML UDC PO SCH ×2 (08:45→20:01)
[2016-12-12] MEDS: inSUlin (REGULAR) HUMAN 1 UNIT/0.01 ML (CHARGE PER UNIT) SC SCH ×3 (08:45→18:41)
[2016-12-12] MEDS: A & D OINT 60 GM TUBE TOP SCH (08:53)
[2016-12-12] MEDS: MENTHOL/ZINC OXIDE (CALMOSEPTINE) 113 GM TUBE TOP SCH ×2 (08:53→20:01)
[2016-12-12] MEDS: LIDOCAINE (LIDODERM) 5% PATCH TOP SCH (08:53)
[2016-12-12] MEDS: MICONAZOLE 2% POWDER (DESENEX AF) 90 GM TOP SCH ×2 (08:53→20:01)
--- NOTE | 2016-12-12 11:01 | Physical Therapy Daily Note ---
PT Daily Note-Current Subjective Agrees to gait in [place]. Likes to stay up in chair til after lunch or so. Pain Location: No Pain Reported Mental Status Patient Orientation: Normal For Age Transfers Functional [place] Measure 0=Not Assessed/NA 4=Minimal Assistance 1=Total Assistance 5=Supervision or Setup 2=Maximal Assistance 6=Modified [place] 3=Moderate Assistance 7=Complete IndependenceIRFPAI Quality Coding Scale 6 Independent with activity with or without an assistive device 5 Patient requires set up or clean up by helper. Patient completes activity by themselves 4 Supervision or touching assist (CGA). [place] provide cues , steadying assist 3 The helper provides less than half the effort to complete the activity 2 The helper provides more than half the effort to complete the activity 1 Dependent. The helper does all the effort to complete an activity 7 Patient refused to complete or attempt activity 9 The patient did not perform the activity before the current illness or injury 88 Not attempted due to Medical conditions or safety concerns Transfers (B, C, W/C) (FIM): 3 Scootin Sit to/from Stand: 3 Gait Training Does the Patient Walk?: Yes Gait (FIM): 4 Distance (FIM): 3=150 ft (200) Gait Level of Assist: 4 (CGA w/c to f/u and instruction for broader KRISTINE and more centered position inside FWW) Gait Persons Needed: 1 Gait Assistive Device: Walker Platform Assessment Current Status: Good Progress PT Short Term Goals Short Term Goals Time Frame: Nov 10, 2016 Gait (FIM): 1 (met) Gait Distance Comment: 10' Gait Level of Assist: 2 Gait Assistive Device: FWW, Walker Platform Wheelchair Distance: 150' PT Detention Goals Manager Wound Goals PT Detention Goals Time Frame: Nov 24, 2016 Transfers (B,C,W/C) (FIM): 4 Sit to Lying (QC): 3 Lying-Sitting on Side/Bed(QC): 3 Sit to Stand (QC): 3 Rollin Roll Left to Right (QC): 3 Chair/Swx-wt-Eqojd Xfer(QC): 3 Gait (FIM): 1 Distance: 20' Walk 10 feet (QC): 2 Gait Level of Assist: 2 Gait Assistive Device: FWW, Walker Platform Wheelchair (FIM): 6 Distance: 500' Wheelchair Level of Assist: 6 Wheel 50 feet with 2 turns (QC: 6 PT Plan Treatment/Plan Treatment Plan: Continue Plan of Care Treatment Plan: Bed Mobility, Education, Functional Activity Fady, Functional Strength, Group Therapy, Gait, Safety, Therapeutic Exercise, Transfers Treatment Duration: Nov 24, 2016 Frequency: At least 5-7 days/Wk (IRF) Estimated Hrs Per Day: 1.5 hours per day Patient and/or Family Agrees t: Yes Safety Risks/Education Patient Education: Gait Training, Transfer Techniques, Correct Positioning, Safety Issues Teaching Recipient: Patient Teaching Methods: Demonstration, Discussion Response to Teaching: Verbalize Understanding, Reinforcement Needed pt. resists instruction for walking, states he cant see what this MERCHANDISE PRESENTATION ASSOCIATE sees and feels he is doing fine, resents the instruction Time/GCodes Time In: 1040 Time Out: 1055 Total Billed Treatment Time: 15 Total Billed Treatment 1,GT15m G Codes Necessary: JONATHON Calles MERCHANDISE PRESENTATION ASSOCIATE Dec 12, 2016 11:01
[2016-12-12] MEDS: DIAZEPAM 5 MG (VALIUM) TABLET PO PRN ×2 (16:27→20:00)
[2016-12-12 17:28] VITALS: BP 119/76
[2016-12-12] MEDS: IRBESARTAN 150 MG (AVAPRO) TAB PO SCH (20:00)
[2016-12-13] MEDS: HYDROcodone/APAP 10 MG/325 MG (LORTAB) TAB PO PRN ×5 (00:59→20:05)
[2016-12-13 05:21] VITALS: BP 120/79
[2016-12-13] MEDS: KCL 20 MEQ TAB (K-DUR) PO SCH (06:29)
[2016-12-13] MEDS: MULTIVIT W/MINERALS TAB (THERAGRAN M) PO SCH (06:29)
[2016-12-13] MEDS: metFORMIN 500 MG (GLUCOPHAGE) TAB PO SCH ×2 (06:29→17:29)
[2016-12-13] MEDS ORDERED: BISACODYL 10 MG SUPP (DULCOLAX) PR ONE (07:30)
[2016-12-13] MEDS: inSUlin (REGULAR) HUMAN 1 UNIT/0.01 ML (CHARGE PER UNIT) SC SCH ×3 (07:46→20:31)
[2016-12-13] MEDS: HYDROCHLOROTHIAZIDE 25 MG (HCTZ) TAB PO SCH (07:46)
[2016-12-13] MEDS: SENNA W/DOCUSATE (SENOKOT S) TABLET PO SCH ×2 (07:46→20:04)
[2016-12-13] MEDS: amLODIPine 5 MG (NORVASC) TAB PO SCH (07:47)
[2016-12-13] MEDS: POLYETHYLENE GLYCOL 17 GM (MIRALAX) PACK PO SCH ×2 (08:01→20:07)
[2016-12-13] MEDS: LIDOCAINE (LIDODERM) 5% PATCH TOP SCH (08:01)
[2016-12-13] MEDS: MENTHOL/ZINC OXIDE (CALMOSEPTINE) 113 GM TUBE TOP SCH ×2 (08:39→20:09)
[2016-12-13] MEDS: MICONAZOLE 2% POWDER (DESENEX AF) 90 GM TOP SCH ×2 (08:40→20:08)
[2016-12-13] MEDS: A & D OINT 60 GM TUBE TOP SCH (08:40)
[2016-12-13] MEDS ORDERED: LACTULOSE SYRUP 10GM/15ML (ENULOSE) 30ML UDC PO SCH (09:00)
[2016-12-13] MEDS: LACTULOSE SYRUP 10GM/15ML (ENULOSE) 30ML UDC PO SCH ×2 (09:49→20:04)
[2016-12-13] MEDS: DIAZEPAM 5 MG (VALIUM) TABLET PO PRN (17:29)
[2016-12-13 18:10] VITALS: BP 149/77
[2016-12-13] MEDS: IRBESARTAN 150 MG (AVAPRO) TAB PO SCH (20:04)
[2016-12-14] MEDS: HYDROcodone/APAP 10 MG/325 MG (LORTAB) TAB PO PRN ×5 (01:09→21:00)
[2016-12-14] MEDS: metFORMIN 500 MG (GLUCOPHAGE) TAB PO SCH ×2 (06:13→18:00)
[2016-12-14] MEDS: MULTIVIT W/MINERALS TAB (THERAGRAN M) PO SCH (06:13)
[2016-12-14] MEDS: KCL 20 MEQ TAB (K-DUR) PO SCH (06:13)
[2016-12-14 06:21] VITALS: BP 130/81
[2016-12-14] MEDS: inSUlin (REGULAR) HUMAN 1 UNIT/0.01 ML (CHARGE PER UNIT) SC SCH ×3 (07:26→21:00)
[2016-12-14] MEDS: LACTULOSE SYRUP 10GM/15ML (ENULOSE) 30ML UDC PO SCH ×2 (08:25→20:57)
[2016-12-14] MEDS: HYDROCHLOROTHIAZIDE 25 MG (HCTZ) TAB PO SCH (08:25)
[2016-12-14] MEDS: SENNA W/DOCUSATE (SENOKOT S) TABLET PO SCH ×2 (08:26→20:57)
[2016-12-14] MEDS: POLYETHYLENE GLYCOL 17 GM (MIRALAX) PACK PO SCH ×2 (08:26→21:00)
[2016-12-14] MEDS: amLODIPine 5 MG (NORVASC) TAB PO SCH (08:27)
[2016-12-14] MEDS: MICONAZOLE 2% POWDER (DESENEX AF) 90 GM TOP SCH ×2 (08:30→21:00)
[2016-12-14] MEDS: A & D OINT 60 GM TUBE TOP SCH (08:30)
[2016-12-14] MEDS: LIDOCAINE (LIDODERM) 5% PATCH TOP SCH (08:30)
[2016-12-14] MEDS: MENTHOL/ZINC OXIDE (CALMOSEPTINE) 113 GM TUBE TOP SCH ×2 (08:31→21:00)
--- NOTE | 2016-12-14 11:02 | Physical Therapy Daily Note ---
PT Daily Note-Current Subjective Patient in wheelchair pre tx, agrees to PT, has pain of 6-7/10 in right shoulder and left hip. His /ex- is here for family training. Appearance Patient in power chair post tx, he is mod I with wheelchair mobility. Mental Status Patient Orientation: Normal For Age cervical collar Transfers Functional [place] Measure 0=Not Assessed/NA 4=Minimal Assistance 1=Total Assistance 5=Supervision or Setup 2=Maximal Assistance 6=Modified [place] 3=Moderate Assistance 7=Complete IndependenceIRFPAI Quality Coding Scale 6 Independent with activity with or without an assistive device 5 Patient requires set up or clean up by helper. Patient completes activity by themselves 4 Supervision or touching assist (CGA). [place] provide cues , steadying assist 3 The helper provides less than half the effort to complete the activity 2 The helper provides more than half the effort to complete the activity 1 Dependent. The helper does all the effort to complete an activity 7 Patient refused to complete or attempt activity 9 The patient did not perform the activity before the current illness or injury 88 Not attempted due to Medical conditions or safety concerns Transfers (B, C, W/C) (FIM): 4 Scootin Rollin Roll Left to Right (QC): 3 Supine to/from Sit: 4 Sit to/from Stand: 4 Sit to Lying (QC): 3 Sit to Stand (QC): 4 Chair/Jcs-vk-Dieid Xfer(QC): 4 Bed to/from Chair: 4 Patient performs bed mobility with min assist if he has a hospital bed, he only needs assist with his legs getting into bed. On a regular bed patient needs min assist for bed mobility, mod assist for supine to sit and [place]/CGA for sit to stand depending on the height he has to stand from. Gait Training Gait (FIM): 2 Distance: 120'x2 Walk 10 feet (QC): 3 Walk 50 ft with 2 Turns(QC): 3 Walk 150 ft (QC): 88 Walking 10ft/uneven surface-QC: 88 Gait Level of Assist: 4 Gait Persons Needed: 1 Patient ambulates 120'x2 using a bilateral platform walker with min assist, he needs assist guiding the walker, wheelchair follow. No ambulation over uneven surfaces but he can ambulate 50' with at least 2 turns of 90 degrees. Wheelchair Training Does the Pt Use a Wheelchair?: Yes Wheelchair (FIM): 6 Wheel 50 ft with 2 turns (QC): 6 Wheel 150 ft (QC): 6 Type of Wheelchair: Motorized Treatments Patient performed bed mobility, transfers, ambulation, wheelchair mobility. Patient's /ex- was training in all mobility, even bed mobility from a flat bed, and how to operate his wheelchair. Assessment Current Status: Fair Progress improving mobility and ambulation, had no questions PT Short Term Goals Short Term Goals Time Frame: Nov 10, 2016 Gait (FIM): 1 (met) Gait Distance Comment: 10' Gait Level of Assist: 2 Gait Assistive Device: FWW, Walker Platform Wheelchair Distance: 150' PT Correction Goals Subway Operator Goals PT Correction Goals Time Frame: Nov 24, 2016 Transfers (B,C,W/C) (FIM): 4 (met) Sit to Lying (QC): 3 (met) Lying-Sitting on Side/Bed(QC): 3 (met) Sit to Stand (QC): 3 (met) Rollin (met) Roll Left to Right (QC): 3 (et) Chair/Azi-rx-Rdsgg Xfer(QC): 3 Gait (FIM): 1 (met) Distance: 20' Walk 10 feet (QC): 2 (met) Gait Level of Assist: 2 (met) Gait Assistive Device: FWW, Walker Platform Wheelchair (FIM): 6 Distance: 500' Wheelchair Level of Assist: 6 (met) Wheel 50 feet with 2 turns (QC: 6 (met) PT Plan Problem List Problem List: Activity Tolerance, Functional Strength, Safety, Balance, Gait, Transfer, Bed Mobility, ROM Treatment/Plan Treatment Plan: Continue Plan of Care Treatment Plan: Bed Mobility, Education, Functional Activity Fady, Functional Strength, Group Therapy, Gait, Safety, Therapeutic Exercise, Transfers Treatment Duration: Nov 24, 2016 Frequency: At least 5-7 days/Wk (IRF) Estimated Hrs Per Day: 1.5 hours per day Patient and/or Family Agrees t: Yes Safety Risks/Education Patient Education: Gait Training, Transfer Techniques, Correct Positioning, W/ C Management, Safety Issues Teaching Recipient: Patient, Significant Other Teaching Methods: Demonstration, Discussion Response to Teaching: Reinforcement Needed Time/GCodes Time In: 1000 Time Out: 1100 Total Billed Treatment Time: 60 Total Billed Treatment 1 visit GT 30' FA 30' CATALINA RUBI PT Dec 14, 2016 11:02
--- NOTE | 2016-12-14 11:30 | Occupational Ther Daily Note ---
OT Current Status-Daily Note Subjective Pt seen in room, up in bed, agreeable to OT. Pain not mentioned. Appearance Alert, cooperative, flat affect Mental Status/Objective Functional [place] Measure 0=Not Assessed/NA 4=Minimal Assistance 1=Total Assistance 5=Supervision or Setup 2=Maximal Assistance 6=Modified [place] 3=Moderate Assistance 7=Complete [place] ADL-Treatment Pt is unable to take cervical collar off or put it on, due to inability to grasp and pull velcro and to position collar. Functional [place] Measure 0=Not Assessed/NA 4=Minimal Assistance 1=Total Assistance 5=Supervision or Setup 2=Maximal Assistance 6=Modified [place] 3=Moderate Assistance 7=Complete IndependenceIRFPAI Quality Coding Scale 6 Independent with activity with or without an assistive device 5 Patient requires set up or clean up by helper. Patient completes activity by themselves 4 Supervision or touching assist (CGA). [place] provide cues , steadying assist 3 The helper provides less than half the effort to complete the activity 2 The helper provides more than half the effort to complete the activity 1 Dependent. The helper does all the effort to complete an activity 7 Patient refused to complete or attempt activity 9 The patient did not perform the activity before the current illness or injury 88 Not attempted due to Medical conditions or safety concerns Eating (FIM): 4 (Sometimes pt is able to feed himself entire meal with setup but other times needs a little help, depending on what foods he orders. He uses a commercially available built up fork and spoon, a rocker knife, a scoop bowl, dycem non-skid surface, a drink mug with large handle.) Eating (QC): 4 Grooming (FIM): 4 (Overall min assist. He is able to shave with just a little help to reach all parts, using manual razor, universal cuff. He needs help to rinse out the razor and props his arm on the countertop. He can brush his teeth with just a little setup, using universal cuff, propping L arm on counterop. He can wash his face and hands at the sink and during shower, using a bath mitt ( due to decreased grasp), setup. He is unable to brush his hair.) Oral Hygiene (QC): 3 Bathing (FIM): 3 (60-65%. Using shower mitt, hand held shower, wheeled shower chair, grab bars. Can do kaleb due to cutout in shower chair. See parts washed and dried below. ) Bathing Location: L Arm (part of), R Arm, L Upper Leg, R Upper Leg, Chest, Abdomen, Perineal Area Shower/Bathe Self (QC): 3 Upper Body (FIM): 4 (Able to thread arms into shirt, then help needed to get shirt over head, then he pulled shirt down. Min assist) Upper Body Dressing (QC): 3 Lower Body Dressing (FIM): 2 (25-40% help. Pt can help get feet into shorts and pull them to his thighs, depending on surface he's sitting on. Help needed to get shorts up over his hips. Unable to do socks and shoes but can pick feet up. Amount of assistance needed to stand to pull pants up varies with height of surface, from mod assist to SBA, average min assist. ) Lower Body Dressing (QC): 2 On/Off Footwear (QC): 1 (Can pick his feet up but can't put socks or shoes on or tie shoes) Toileting (FIM): 1 (With flat surface BSC, he needs help to manage clothing and for hygiene. He is able to use a urinal when he is seated in power chair but is unale to empty it. Unable to use urinal in bed. ) Toileting Hygiene (QC): 1 Toilet/Commode Transfer (FIM): 3 (On and off flat top BSC, due to height of BSC. Using FWW. Min assist to sit, mod assist to stand) Toilet Transfer (QC): 3 Shower Transfer(FIM): 3 (Mod assist on and off wheeled shower chair. FWW) Pt's was present for education and was able to manage transfers by end of session. She verbalized understanding of modified techniques and pt was able to direct her as needed. All questions answered. Also showed her transfer tub bench. He should be able to use BSC as transfer tub bench to get in/out of bathtub at her house - recommend waiting for home health to practice transfer. Apparently unable to get power chair in/out of bathroom at her house. Education OT Patient Education: Correct positioning, Instructions don/doff splint/brace, Instructions to caregiver, Modified ADL techniques, Progress toward Goal/Update tx plan, Purpose of tx/functional activities, Safety issues, Transfer techniques , Use of adapted equipment Teaching Recipient: Patient, Significant Other Teaching Methods: Demonstration, Discussion Response to Teaching: Verbalize Understanding, Return Demonstration OT Short Term Goals Short Term Goals Time Frame: Nov 17, 2016 Eating(FIM): 4 Grooming(FIM): 3 Upper Body Dressing(FIM): 3 Lower Body Dressing(FIM): 3 Toileting(FIM): 3 Toilet/Commode Transfer(FIM): 3 Shower Transfer(FIM): 3 Additional Short Term Goals: 2-Verbalize Understanding, 3-ImproveStrength/Fady 1=Demonstrate adherence to instructed precautions during ADL tasks. 2=Patient will verbalize/demonstrate understanding of assistive devices/ modifications for ADL. 3=Patient will improve strength/tolerance for activity to enable patient to perform ADL's. OT Mill Hand Goals Mill Hand Goals Time Frame: Dec 01, 2016 Eating (FIM): 5 Eating (QC): 5 Groomin Oral Hygiene (QC): 5 Bathing(FIM): 5 Shower/Bathe Self (QC): 5 Upper Body Dressing(FIM): 5 Upper Body Dressing (QC): 5 Lower Body Dressing(FIM): 5 Lower Body Dressing (QC): 5 On/Off Footwear (QC): 4 Toileting(FIM): 5 Toileting Hygiene (QC): 5 Toilet/Commode Transfer(FIM): 5 Toilet/Commode Transfer (QC): 5 Shower Transfer(FIM): 5 Additional Goals: 2-Verbalize Understanding, 3-ImproveStrength/Fady 1=Demonstrate adherence to instructed precautions during ADL tasks. 2=Patient will verbalize/demonstrate understanding of assistive devices/ modifications for ADL. 3=Patient will improve strength/tolerance for activity to enable patient to perform ADL's. OT Education/Plan Problem List/Assessment Pt would benefit from skilled OT to increase his independence in basic self care to allow him to safely return to his home to live alone and to decrease caregiver burden. Discharge Recommendations Plan/Recommendations: Continue POC Treatment Plan/Plan of Care Patient would benefit from OT for education, treatment and training to promote independence in ADL's, mobility, safety and/or upper extremity function for ADL' s. Plan of Care: ADL Retraining, Caregiver Training, Functional Mobility, Group Exercise/Act as Ind (education, exercise, activity tolerance, functional activities, socialization), UE Funct Exercise/Act, UE Neuromus Re-Ed/Coord, W/C Management Training Treatment Duration: Dec 01, 2016 Frequency: At least 5-7 days/Wk (IRF) Estimated Hrs Per Day: 1.5 hours per day Agreement: Yes Rehab Potential: Fair Time/GCodes Start Time: 08:30 Stop Time: 10:00 Total Time Billed (hr/min): 90 Billed Treatment Time visit, 90 minutes ADL THAI HOOVER OT Dec 14, 2016 11:30
--- NOTE | 2016-12-14 15:23 | Occupational Ther Daily Note ---
OT Current Status-Daily Note Subjective Pt and his wanted to look at bathing equipment for discharge planning Mental Status/Objective Functional [place] Measure 0=Not Assessed/NA 4=Minimal Assistance 1=Total Assistance 5=Supervision or Setup 2=Maximal Assistance 6=Modified [place] 3=Moderate Assistance 7=Complete [place] ADL-Treatment met with patient and his in tub room, Talked about pros and cons of flat seated bedside commode versus one with toilet style seat - he will be able to scoot back on flat seated one so that his parts fit into the bucket. Also discussed and demonstrated transfer tub bench, grab bars, and talked about options for home. He may be able to use the BS as transfer tub bench but might also prefer to purchase transfer tub bench. A standard shower chair will not work because he cannot step into tub at this time. Pt's also found shower mitt at a local store and that should work well for bathing. Pt took himself back to his room per power chair, all needs met. Functional [place] Measure 0=Not Assessed/NA 4=Minimal Assistance 1=Total Assistance 5=Supervision or Setup 2=Maximal Assistance 6=Modified [place] 3=Moderate Assistance 7=Complete IndependenceIRFPAI Quality Coding Scale 6 Independent with activity with or without an assistive device 5 Patient requires set up or clean up by helper. Patient completes activity by themselves 4 Supervision or touching assist (CGA). [place] provide cues , steadying assist 3 The helper provides less than half the effort to complete the activity 2 The helper provides more than half the effort to complete the activity 1 Dependent. The helper does all the effort to complete an activity 7 Patient refused to complete or attempt activity 9 The patient did not perform the activity before the current illness or injury 88 Not attempted due to Medical conditions or safety concerns Education OT Patient Education: Transfer techniques, Use of adapted equipment Teaching Recipient: Patient, Significant Other Teaching Methods: Demonstration, Discussion Response to Teaching: Verbalize Understanding, Return Demonstration OT Short Term Goals Short Term Goals Time Frame: Nov 17, 2016 Eating(FIM): 4 Grooming(FIM): 3 Upper Body Dressing(FIM): 3 Lower Body Dressing(FIM): 3 Toileting(FIM): 3 Toilet/Commode Transfer(FIM): 3 Shower Transfer(FIM): 3 Additional Short Term Goals: 2-Verbalize Understanding, 3-ImproveStrength/Fady 1=Demonstrate adherence to instructed precautions during ADL tasks. 2=Patient will verbalize/demonstrate understanding of assistive devices/ modifications for ADL. 3=Patient will improve strength/tolerance for activity to enable patient to perform ADL's. OT Paper Products Printer Goals Paper Products Printer Goals Time Frame: Dec 01, 2016 Eating (FIM): 5 Eating (QC): 5 Groomin Oral Hygiene (QC): 5 Bathing(FIM): 5 Shower/Bathe Self (QC): 5 Upper Body Dressing(FIM): 5 Upper Body Dressing (QC): 5 Lower Body Dressing(FIM): 5 Lower Body Dressing (QC): 5 On/Off Footwear (QC): 4 Toileting(FIM): 5 Toileting Hygiene (QC): 5 Toilet/Commode Transfer(FIM): 5 Toilet/Commode Transfer (QC): 5 Shower Transfer(FIM): 5 Additional Goals: 2-Verbalize Understanding, 3-ImproveStrength/Fady 1=Demonstrate adherence to instructed precautions during ADL tasks. 2=Patient will verbalize/demonstrate understanding of assistive devices/ modifications for ADL. 3=Patient will improve strength/tolerance for activity to enable patient to perform ADL's. OT Education/Plan Problem List/Assessment Pt would benefit from skilled OT to increase his independence in basic self care to allow him to safely return to his home to live alone and to decrease caregiver burden. Discharge Recommendations Plan/Recommendations: Continue POC Treatment Plan/Plan of Care Patient would benefit from OT for education, treatment and training to promote independence in ADL's, mobility, safety and/or upper extremity function for ADL' s. Plan of Care: ADL Retraining, Caregiver Training, Functional Mobility, Group Exercise/Act as Ind (education, exercise, activity tolerance, functional activities, socialization), UE Funct Exercise/Act, UE Neuromus Re-Ed/Coord, W/C Management Training Treatment Duration: Dec 01, 2016 Frequency: At least 5-7 days/Wk (IRF) Estimated Hrs Per Day: 1.5 hours per day Agreement: Yes Rehab Potential: Fair Time/GCodes Start Time: 14:15 Stop Time: 14:30 Total Time Billed (hr/min): 15 Billed Treatment Time visit, 15 minutes ADL THAI HOOVER OT Dec 14, 2016 15:23
--- NOTE | 2016-12-14 15:28 | Physical Therapy Daily Note ---
PT Daily Note-Current Subjective Patient agrees to PT and to return to bed. Pain Numeric Pain Scale: 5-Moderate Pain Location: Left Location Body Site: Hip Pain Description: Ache Mental Status Patient Orientation: Normal For Age Transfers Functional [place] Measure 0=Not Assessed/NA 4=Minimal Assistance 1=Total Assistance 5=Supervision or Setup 2=Maximal Assistance 6=Modified [place] 3=Moderate Assistance 7=Complete IndependenceIRFPAI Quality Coding Scale 6 Independent with activity with or without an assistive device 5 Patient requires set up or clean up by helper. Patient completes activity by themselves 4 Supervision or touching assist (CGA). [place] provide cues , steadying assist 3 The helper provides less than half the effort to complete the activity 2 The helper provides more than half the effort to complete the activity 1 Dependent. The helper does all the effort to complete an activity 7 Patient refused to complete or attempt activity 9 The patient did not perform the activity before the current illness or injury 88 Not attempted due to Medical conditions or safety concerns Transfers (B, C, W/C) (FIM): 3 Scootin Rollin Roll Left to Right (QC): 3 Supine to/from Sit: 3 Sit to/from Stand: 3 Sit to Lying (QC): 3 Sit to Stand (QC): 2 Bed to/from Chair: 3 Patient performed sidestepping to left with mod assist by PT. Patient is very fatigued this p.m. requiring more assistance with mobility. Assessment Patient repositioned to supine in bed with bilateral LE and UE's elevated on pillows for comfort and prevention of pressure ulcers. PT Short Term Goals Short Term Goals Time Frame: Nov 10, 2016 Gait (FIM): 1 (met) Gait Distance Comment: 10' Gait Level of Assist: 2 Gait Assistive Device: FWW, Walker Platform Wheelchair Distance: 150' PT Peer Health Promoter Goals Senior Living Goals PT Peer Health Promoter Goals Time Frame: Nov 24, 2016 Transfers (B,C,W/C) (FIM): 4 (met) Sit to Lying (QC): 3 (met) Lying-Sitting on Side/Bed(QC): 3 (met) Sit to Stand (QC): 3 (met) Rollin (met) Roll Left to Right (QC): 3 (et) Chair/[id number] Xfer(QC): 3 Gait (FIM): 1 (met) Distance: 20' Walk 10 feet (QC): 2 (met) Gait Level of Assist: 2 (met) Gait Assistive Device: FWW, Walker Platform Wheelchair (FIM): 6 Distance: 500' Wheelchair Level of Assist: 6 (met) Wheel 50 feet with 2 turns (QC: 6 (met) PT Plan Treatment/Plan Treatment Plan: Continue Plan of Care Treatment Plan: Bed Mobility, Education, Functional Activity Fady, Functional Strength, Group Therapy, Gait, Safety, Therapeutic Exercise, Transfers Treatment Duration: Nov 24, 2016 Frequency: At least 5-7 days/Wk (IRF) Estimated Hrs Per Day: 1.5 hours per day Patient and/or Family Agrees t: Yes Time/GCodes Time In: 1510 Time Out: 1525 Total Billed Treatment Time: 15 Total Billed Treatment 1 visit FA 15 min ALANNA OLIVER PT Dec 14, 2016 15:28
[2016-12-14 18:02] VITALS: BP 123/81
[2016-12-14] MEDS: DIAZEPAM 5 MG (VALIUM) TABLET PO PRN (18:45)
--- NOTE | 2016-12-14 20:53 | PM & R (SOAP) Progress Note ---
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.Patient had BM with adjustment in meds Objective Exam Last Set of Vital Signs Vital Signs Date Time Temp Pulse Resp B/P (MAP) Pulse Ox O2 Delivery O2 Flow Rate FiO2 12/14/16 18:02 97.5 95 18 123/81 97 Room Air Capillary Refill : I&O Intake and Output 12/14/16 00:00 Intake Total 990 ml Output Total 1540 ml Balance -550 ml Intake Oral 990 ml Output Urine Total 1540 ml # Voids 9 General: Alert, No Acute Distress HEENT: Atraumatic, PERRLA, EOMI, Mucous Memb Moist/[place] Neck: Supple, Other (inciasion healing well C Collar in place) Lungs: Normal Air Movement Heart: Regular Rate Abdomen: Normal Bowel Sounds Extremities: Other (trace edema rt hand) Skin: Other (rt heel wrapped) Neuro: Other (Quadriplegia, incomplete.) Results Lab Laboratory Tests 12/12/16 06:12: Glucometer 154H 12/12/16 16:26: Glucometer 136H 12/13/16 05:51: Glucometer 98 12/13/16 11:05: Glucometer 89 12/13/16 16:27: Glucometer 135H 12/14/16 06:09: Glucometer 124H 12/14/16 15:29: Glucometer 208H Assessment/Plan Assessment Cervical spine spondylosis with myelopathy s/p decompression DR Atkinson affecting U Limbs more then Lower with strength gradually improving but 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 affecting ADL skills Dysphagia improved diet advanced- to regular consistency discussed with RN AMY on cpap HTN controlled DM with episode of hypoglycemia Dr juarez has adjusted insulin -improved HLP Intolerance to oxy-disturbed sleep Pressure sore rt heel-improving DJD Left Knee DJD left Hip S/P rt HIP relacement DR Cantu remote Trochanteric bursitis left hip s/p Injection DR Riley Hypokalemia-replaced Plan Continue PT/OT/Pain management F/U with Hospitalist and DR Atkinson as per their schedule Trend Accucheks and adjust insulin as needed Pain management Changed meds-improved Wound care reconsult to check rt heel -see orders-done as per above Patient doing better with switch to hydrocodone for pain-less side effects report Discussed discharge options.with SW.last week Check Xray left hip-done Consult ortho re possible injection for pain control-done Pain management Trial of Lidoderm patch-in progress. Continue wit paraffin baths for hands with OT as indicated Rechecked Labs K supplement ordered rechecked labs Family training Discharge set tentatively for Wednesday12/16/16 Will confirm discharge details with SW tomorrow JOSEY SALINAS MD Dec 14, 2016 20:53
[2016-12-14] MEDS: IRBESARTAN 150 MG (AVAPRO) TAB PO SCH (21:01)
[2016-12-15] MEDS: HYDROcodone/APAP 10 MG/325 MG (LORTAB) TAB PO PRN ×6 (01:11→23:31)
[2016-12-15] MEDS: DIAZEPAM 5 MG (VALIUM) TABLET PO PRN ×3 (05:17→21:38)
[2016-12-15 06:10] VITALS: BP 121/77
[2016-12-15] MEDS: inSUlin (REGULAR) HUMAN 1 UNIT/0.01 ML (CHARGE PER UNIT) SC SCH ×3 (06:48→16:59)
[2016-12-15] MEDS: KCL 20 MEQ TAB (K-DUR) PO SCH (06:48)
[2016-12-15] MEDS: MULTIVIT W/MINERALS TAB (THERAGRAN M) PO SCH (06:48)
[2016-12-15] MEDS: metFORMIN 500 MG (GLUCOPHAGE) TAB PO SCH ×2 (06:48→16:58)
[2016-12-15] MEDS: amLODIPine 5 MG (NORVASC) TAB PO SCH (10:00)
[2016-12-15] MEDS: SENNA W/DOCUSATE (SENOKOT S) TABLET PO SCH ×2 (10:00→20:45)
[2016-12-15] MEDS: HYDROCHLOROTHIAZIDE 25 MG (HCTZ) TAB PO SCH (10:00)
[2016-12-15] MEDS: MENTHOL/ZINC OXIDE (CALMOSEPTINE) 113 GM TUBE TOP SCH ×2 (10:01→20:47)
[2016-12-15] MEDS: A & D OINT 60 GM TUBE TOP SCH (10:01)
[2016-12-15] MEDS: LACTULOSE SYRUP 10GM/15ML (ENULOSE) 30ML UDC PO SCH ×2 (10:01→20:45)
[2016-12-15] MEDS: MICONAZOLE 2% POWDER (DESENEX AF) 90 GM TOP SCH ×2 (10:02→20:48)
[2016-12-15] MEDS: LIDOCAINE (LIDODERM) 5% PATCH TOP SCH (10:04)
[2016-12-15] MEDS: POLYETHYLENE GLYCOL 17 GM (MIRALAX) PACK PO SCH ×2 (10:04→20:46)
--- NOTE | 2016-12-15 11:20 | Occupational Ther Daily Note ---
OT Current Status-Daily Note Subjective Pt seen in room, up in power chair, agreeable to OT. No pain reported but pt mentioned that he still has some pain in R scapular region but that it is better with e-stim. Appearance Alert, cooperative, flat affect Mental Status/Objective Functional [place] Measure 0=Not Assessed/NA 4=Minimal Assistance 1=Total Assistance 5=Supervision or Setup 2=Maximal Assistance 6=Modified [place] 3=Moderate Assistance 7=Complete [place] ADL-Treatment Functional [place] Measure 0=Not Assessed/NA 4=Minimal Assistance 1=Total Assistance 5=Supervision or Setup 2=Maximal Assistance 6=Modified [place] 3=Moderate Assistance 7=Complete IndependenceIRFPAI Quality Coding Scale 6 Independent with activity with or without an assistive device 5 Patient requires set up or clean up by helper. Patient completes activity by themselves 4 Supervision or touching assist (CGA). [place] provide cues , steadying assist 3 The helper provides less than half the effort to complete the activity 2 The helper provides more than half the effort to complete the activity 1 Dependent. The helper does all the effort to complete an activity 7 Patient refused to complete or attempt activity 9 The patient did not perform the activity before the current illness or injury 88 Not attempted due to Medical conditions or safety concerns Grooming (FIM): 4 (Pt was able to push open door to bathroom in his power chair but unable to pull open door to get out of room (lever arm doorknob). Able to wash face and hands at accessible sink. Able to shave about 3/4 of face using universal cuff, razor, propping L arm on countertop. Able to brush teeth with some setup. He can put universal cuff on, rinse his mouth with cup and straw. Unable to comb hair) Oral Hygiene (QC): 4 Other Treatment Pt transported himself to gym per power chair. Paraffin bath applied to R hand. Measurements from tips of fingers to palm on R hand in inches: Before paraffin After paraffin Index 2.0 1.5 Middle .75 .25 Ring .75 .25 Little .5 .25 While R hand in paraffin, used skilled facilitation techniques to increase functional use L UE. Pt tends to move upper arm in abduction instead of flexion. Worked on intrinsics L hand. Also used skilled techniques to increase functional use R hand. Quartz Miner Blasting and pinch strength measurements taken: compared to measurements taken 12-04) Quartz Miner Blasting: L 6, 6, 6 lb (same as previous measurements) 2nd position dynamometer R 2, 2, 2 lb (increase) - 2nd position 4, 5, 4 lb (slight increase) 4th position Pinch: L R lateral 4 2 3 jaw sara 2 .5 tip 2 .5 Increase in R hand 3 jaw sara and tip pinch Box and Blocks (standardized gross motor test) L 16 blocks in 1 minute (decrease of 4 blocks and same as original testing from October) R 8 blocks in 1 minute (decrease from previous but was unable with original testing in October) 9 hole peg test: L 2:[address] 5 pegs (previously could place only one peg) R unable Pt took himself back to his room, all needs met. Education OT Patient Education: Modified ADL techniques, Progress toward Goal/Update tx plan, Purpose of tx/functional activities, Use of adapted equipment Teaching Recipient: Patient Teaching Methods: Discussion Response to Teaching: Verbalize Understanding OT Short Term Goals Short Term Goals Time Frame: Nov 17, 2016 Eating(FIM): 4 Grooming(FIM): 3 Upper Body Dressing(FIM): 3 Lower Body Dressing(FIM): 3 Toileting(FIM): 3 Toilet/Commode Transfer(FIM): 3 Shower Transfer(FIM): 3 Additional Short Term Goals: 2-Verbalize Understanding, 3-ImproveStrength/Fady 1=Demonstrate adherence to instructed precautions during ADL tasks. 2=Patient will verbalize/demonstrate understanding of assistive devices/ modifications for ADL. 3=Patient will improve strength/tolerance for activity to enable patient to perform ADL's. OT [facility] Goals Mica Splitter Goals Time Frame: Dec 01, 2016 Eating (FIM): 5 Eating (QC): 5 Groomin Oral Hygiene (QC): 5 Bathing(FIM): 5 Shower/Bathe Self (QC): 5 Upper Body Dressing(FIM): 5 Upper Body Dressing (QC): 5 Lower Body Dressing(FIM): 5 Lower Body Dressing (QC): 5 On/Off Footwear (QC): 4 Toileting(FIM): 5 Toileting Hygiene (QC): 5 Toilet/Commode Transfer(FIM): 5 Toilet/Commode Transfer (QC): 5 Shower Transfer(FIM): 5 Additional Goals: 2-Verbalize Understanding, 3-ImproveStrength/Fady 1=Demonstrate adherence to instructed precautions during ADL tasks. 2=Patient will verbalize/demonstrate understanding of assistive devices/ modifications for ADL. 3=Patient will improve strength/tolerance for activity to enable patient to perform ADL's. OT Education/Plan Problem List/Assessment Pt would benefit from skilled OT to increase his independence in basic self care to allow him to safely return to his home to live alone and to decrease caregiver burden. Discharge Recommendations Plan/Recommendations: Continue POC Treatment Plan/Plan of Care Patient would benefit from OT for education, treatment and training to promote independence in ADL's, mobility, safety and/or upper extremity function for ADL' s. Plan of Care: ADL Retraining, Caregiver Training, Functional Mobility, Group Exercise/Act as Ind (education, exercise, activity tolerance, functional activities, socialization), UE Funct Exercise/Act, UE Neuromus Re-Ed/Coord, W/C Management Training Treatment Duration: Dec 01, 2016 Frequency: At least 5-7 days/Wk (IRF) Estimated Hrs Per Day: 1.5 hours per day Agreement: Yes Rehab Potential: Fair Time/GCodes Start Time: 08:30 Stop Time: 10:00 Total Time Billed (hr/min): 90 Billed Treatment Time visit, 30 minutes ADL, 60 minutes neuromotor, paraffin bath THAI HOOVER OT Dec 15, 2016 11:20
--- NOTE | 2016-12-15 15:45 | PM & R (SOAP) Progress Note ---
Subjective Time Seen by Provider: 08:00 Subjective/Events-last exam Patient was seen in his room this AM Patient scheduled tentatively for discharge tomorrow to home with family RX for DME provided.Patient MOd assist for transfers Objective Exam Last Set of Vital Signs Vital Signs Date Time Temp Pulse Resp B/P (MAP) Pulse Ox O2 Delivery O2 Flow Rate FiO2 12/15/16 08:30 Room Air 12/15/16 06:10 97.1 85 20 121/77 97 Capillary Refill : I&O Intake and Output 12/15/16 00:00 Intake Total 1300 ml Balance 1300 ml Intake Oral 1300 ml # Voids 7 # Bowel Movements 1 General: Alert, No Acute Distress HEENT: Atraumatic, PERRLA, EOMI, Mucous Memb Moist/[place] Neck: Supple, Other (inciasion healing well C Collar in place) Lungs: Normal Air Movement Heart: Regular Rate Abdomen: Normal Bowel Sounds Extremities: Other (trace edema rt hand) Skin: Other (rt heel wrapped) Neuro: Other (Quadriplegia, incomplete.) Results Lab Laboratory Tests 12/12/16 16:26: Glucometer 136H 12/13/16 05:51: Glucometer 98 12/13/16 11:05: Glucometer 89 12/13/16 16:27: Glucometer 135H 12/14/16 06:09: Glucometer 124H 12/14/16 15:29: Glucometer 208H 12/14/16 21:12: Glucometer 108 12/15/16 05:19: Glucometer 151H Assessment/Plan Assessment Cervical spine spondylosis with myelopathy s/p decompression DR Atkinson affecting U Limbs more then Lower with strength gradually improving but 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 with 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 affecting 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 skills Dysphagia improved diet advanced- to regular consistency discussed with RN AMY on cpap HTN controlled DM with episode of hypoglycemia Dr juarez has adjusted insulin -improved HLP Intolerance to oxy-disturbed sleep Pressure sore rt heel-improving DJD Left Knee DJD left Hip S/P rt HIP relacement DR Cantu remote Trochanteric bursitis left hip s/p Injection DR Riley Hypokalemia-replaced Plan Continue PT/OT/Pain management F/U with Hospitalist and DR Atkinson as per their schedule Trend Accucheks and adjust insulin as needed Pain management Changed meds-improved Wound care reconsult to check rt heel -see orders-done as per above Patient doing better with switch to hydrocodone for pain-less side effects report Discussed discharge options.with SW.last week Check Xray left hip-done Consult ortho re possible injection for pain control-done Pain management Trial of Lidoderm patch-in progress. Continue wit paraffin baths for hands with OT as indicated Rechecked Labs K supplement ordered rechecked labs Family training Discharge set tentatively for tomorrow Wednesday12/16/16 Will confirm discharge details with SW tomorrow JOSEY SALINAS MD Dec 15, 2016 15:45
--- NOTE | 2016-12-15 15:54 | Physical Therapy Daily Note ---
PT Daily Note-Current Subjective Pt sitting in [facility] upon arrival. Pt agrees to PT. Pain Numeric Pain Scale: 7 Location: Right Location Body Site: Knee Pain Description: Ache Mental Status Patient Orientation: Person, Place, Time, Situation Transfers Functional [place] Measure 0=Not Assessed/NA 4=Minimal Assistance 1=Total Assistance 5=Supervision or Setup 2=Maximal Assistance 6=Modified [place] 3=Moderate Assistance 7=Complete IndependenceIRFPAI Quality Coding Scale 6 Independent with activity with or without an assistive device 5 Patient requires set up or clean up by helper. Patient completes activity by themselves 4 Supervision or touching assist (CGA). [place] provide cues , steadying assist 3 The helper provides less than half the effort to complete the activity 2 The helper provides more than half the effort to complete the activity 1 Dependent. The helper does all the effort to complete an activity 7 Patient refused to complete or attempt activity 9 The patient did not perform the activity before the current illness or injury 88 Not attempted due to Medical conditions or safety concerns Scootin Sit to/from Stand: 4 Sit to Stand (QC): 4 Weight Bearing Weight Bearing Restriction: Full Weight Bearing Location Restriction: LE Bilateral Gait Training Does the Patient Walk?: Yes Distance (FIM): 3=150 ft Distance: 200' Walk 10 feet (QC): 4 Walk 50 ft with 2 Turns(QC): 4 Walk 150 ft (QC): 4 Gait Level of Assist: 4 Gait Persons Needed: 1 Gait Assistive Device: Walker Platform Wheelchair Training Does the Pt Use a Wheelchair?: Yes Wheelchair Distance: 3=150 ft Distance: 150' Wheelchair Level of Assist: 5 Wheel 50 ft with 2 turns (QC): 5 Wheel 150 ft (QC): 5 Type of Wheelchair: Motorized Exercises NuStep Minutes: 15 NuStep Workload: 3 Treatments Pt transfers at Min A from [facility]. Pt ambulates using double platform walker at CGA-Min A. Pt uses NuStep for 15m at Workload 3. Pt works on transfers during tx. Pt returns to room at end of tx to rest with all needs met. Assessment Current Status: Fair Progress Pt fatigues easy and needs rest breaks during ambulation and Ex. Pt has made progress though with activity tolerance, strength and safety and independence with transfers and mobility. PT Short Term Goals Short Term Goals Time Frame: Nov 10, 2016 Gait (FIM): 1 (met) Gait Distance Comment: 10' Gait Level of Assist: 2 Gait Assistive Device: FWW, Walker Platform Wheelchair Distance: 150' PT Prison Goals Prison Goals PT Wood Window And Door Craftsman Goals Time Frame: Nov 24, 2016 Transfers (B,C,W/C) (FIM): 4 (met) Sit to Lying (QC): 3 (met) Lying-Sitting on Side/Bed(QC): 3 (met) Sit to Stand (QC): 3 (met) Rollin Roll Left to Right (QC): 3 (et) Chair/Rzo-cf-Vrjdb Xfer(QC): 3 Gait (FIM): 1 (met) Distance: 20' Walk 10 feet (QC): 2 (met) Gait Level of Assist: 2 (met) Gait Assistive Device: FWW, Walker Platform Wheelchair (FIM): 6 Distance: 500' Wheelchair Level of Assist: 6 (met) Wheel 50 feet with 2 turns (QC: 6 (met) PT Plan Problem List Problem List: Activity Tolerance, Functional Strength, Balance, Gait, Transfer Treatment/Plan Treatment Plan: Continue Plan of Care Treatment Plan: Bed Mobility, Education, Functional Activity Fady, Functional Strength, Group Therapy, Gait, Safety, Therapeutic Exercise, Transfers Treatment Duration: Nov 24, 2016 Frequency: At least 5-7 days/Wk (IRF) Estimated Hrs Per Day: 1.5 hours per day Patient and/or Family Agrees t: Yes Safety Risks/Education Patient Education: Gait Training, Transfer Techniques, Correct Positioning, Safety Issues Teaching Recipient: Patient Teaching Methods: Discussion Response to Teaching: Verbalize Understanding Time/GCodes Time In: 1015 Time Out: 1115 Total Billed Treatment Time: 60 Total Billed Treatment visit, GT x2 (30m), EX (15m) & FA (15m) GILA CRYSTAL MOLDED GRID AND PARTS INSPECTOR Dec 15, 2016 15:54
--- NOTE | 2016-12-15 16:03 | Physical Therapy Daily Note ---
PT Daily Note-Current Subjective Pt sitting in [facility] upon arrival. Pt agrees to PT. Pain Numeric Pain Scale: 6 Location: Right Location Body Site: Knee Pain Description: Ache Mental Status Patient Orientation: Person, Place, Time, Situation Transfers Functional [place] Measure 0=Not Assessed/NA 4=Minimal Assistance 1=Total Assistance 5=Supervision or Setup 2=Maximal Assistance 6=Modified [place] 3=Moderate Assistance 7=Complete IndependenceIRFPAI Quality Coding Scale 6 Independent with activity with or without an assistive device 5 Patient requires set up or clean up by helper. Patient completes activity by themselves 4 Supervision or touching assist (CGA). [place] provide cues , steadying assist 3 The helper provides less than half the effort to complete the activity 2 The helper provides more than half the effort to complete the activity 1 Dependent. The helper does all the effort to complete an activity 7 Patient refused to complete or attempt activity 9 The patient did not perform the activity before the current illness or injury 88 Not attempted due to Medical conditions or safety concerns Scootin Sit to/from Stand: 4 Sit to Stand (QC): 4 Weight Bearing Weight Bearing Restriction: Full Weight Bearing Location Restriction: LE Bilateral Gait Training Does the Patient Walk?: Yes Distance (FIM): 6=568-87 ft Distance: 125' Walk 10 feet (QC): 4 Walk 50 ft with 2 Turns(QC): 4 Gait Level of Assist: 4 Gait Persons Needed: 1 Gait Assistive Device: Walker Platform Pt uses double platform walker at CGA-Min A. Pt fatigues easy this afternoon. Wheelchair Training Does the Pt Use a Wheelchair?: Yes Wheelchair Distance: 3=150 ft Distance: 150' Wheelchair Level of Assist: 5 Wheel 50 ft with 2 turns (QC): 5 Wheel 150 ft (QC): 5 Type of Wheelchair: Motorized Treatments Pt transfers from [facility] using double platform walker at Min A. Pt ambulates using walker at CGA-Min A. Pt returns to room via [facility] to use BSC. Pt transfers from [facility] to BSC via [facility] at Min A. Pt is left with call light clipped to shirt and all needs met at end of tx. Assessment Pt fatigues easy but recovers after rest. Pt has made progress with safety & independence with transfers and mobility. PT Short Term Goals Short Term Goals Time Frame: Nov 10, 2016 Gait (FIM): 1 (met) Gait Distance Comment: 10' Gait Level of Assist: 2 Gait Assistive Device: FWW, Walker Platform Wheelchair Distance: 150' PT Food Production Worker Goals Food Production Worker Goals PT Food Production Worker Goals Time Frame: Nov 24, 2016 Transfers (B,C,W/C) (FIM): 4 (met) Sit to Lying (QC): 3 (met) Lying-Sitting on Side/Bed(QC): 3 (met) Sit to Stand (QC): 3 (met) Rollin Roll Left to Right (QC): 3 (et) Chair/Mpn-bu-Vlzut Xfer(QC): 3 Gait (FIM): 1 (met) Distance: 20' Walk 10 feet (QC): 2 (met) Gait Level of Assist: 2 (met) Gait Assistive Device: FWW, Walker Platform Wheelchair (FIM): 6 Distance: 500' Wheelchair Level of Assist: 6 (met) Wheel 50 feet with 2 turns (QC: 6 (met) PT Plan Problem List Problem List: Activity Tolerance, Functional Strength, Balance, Gait, Transfer Treatment/Plan Treatment Plan: Continue Plan of Care Treatment Plan: Bed Mobility, Education, Functional Activity Fady, Functional Strength, Group Therapy, Gait, Safety, Therapeutic Exercise, Transfers Treatment Duration: Nov 24, 2016 Frequency: At least 5-7 days/Wk (IRF) Estimated Hrs Per Day: 1.5 hours per day Patient and/or Family Agrees t: Yes Safety Risks/Education Patient Education: Gait Training, Transfer Techniques, Correct Positioning, Safety Issues Teaching Recipient: Patient Teaching Methods: Discussion Response to Teaching: Verbalize Understanding Time/GCodes Time In: 1425 Time Out: 1455 Total Billed Treatment Time: 30 Total Billed Treatment visit, GT (15m) & FA (15m) GILA CRYSTAL PTA Dec 15, 2016 16:02
[2016-12-15 17:04] VITALS: BP 133/84
[2016-12-15] MEDS: IRBESARTAN 150 MG (AVAPRO) TAB PO SCH (20:46)
[2016-12-16] MEDS: DIAZEPAM 5 MG (VALIUM) TABLET PO PRN (01:20)
[2016-12-16] MEDS: HYDROcodone/APAP 10 MG/325 MG (LORTAB) TAB PO PRN (05:23)
[2016-12-16 06:00] VITALS: BP 127/82
[2016-12-16] MEDS: MULTIVIT W/MINERALS TAB (THERAGRAN M) PO SCH (06:30)
[2016-12-16] MEDS: inSUlin (REGULAR) HUMAN 1 UNIT/0.01 ML (CHARGE PER UNIT) SC SCH (06:30)
[2016-12-16] MEDS: KCL 20 MEQ TAB (K-DUR) PO SCH (06:30)
[2016-12-16] MEDS: metFORMIN 500 MG (GLUCOPHAGE) TAB PO SCH (06:30)
[2016-12-16] MEDS: LIDOCAINE (LIDODERM) 5% PATCH TOP SCH ×2 (08:17→08:24)
[2016-12-16] MEDS: POLYETHYLENE GLYCOL 17 GM (MIRALAX) PACK PO SCH (08:17)
[2016-12-16] MEDS: LACTULOSE SYRUP 10GM/15ML (ENULOSE) 30ML UDC PO SCH (08:17)
[2016-12-16] MEDS: amLODIPine 5 MG (NORVASC) TAB PO SCH (08:18)
[2016-12-16] MEDS: SENNA W/DOCUSATE (SENOKOT S) TABLET PO SCH (08:18)
[2016-12-16] MEDS: HYDROCHLOROTHIAZIDE 25 MG (HCTZ) TAB PO SCH (08:18)
[2016-12-16] MEDS: MENTHOL/ZINC OXIDE (CALMOSEPTINE) 113 GM TUBE TOP SCH (08:20)
[2016-12-16] MEDS: A & D OINT 60 GM TUBE TOP SCH (08:20)
[2016-12-16] MEDS: MICONAZOLE 2% POWDER (DESENEX AF) 90 GM TOP SCH (08:21)
[2016-12-16] MEDS ORDERED: MENT71OI TOP (08:29)
[2016-12-16] MEDS ORDERED: DIAZ5TAB3 PO (08:29)
[2016-12-16] MEDS ORDERED: HYDR25TA4 PO (08:29)
[2016-12-16] MEDS ORDERED: HYDR-753 PO (08:29)
[2016-12-16] MEDS ORDERED: METF500T4 PO (08:29)
[2016-12-16] MEDS ORDERED: IRBE300T42 PO (08:29)
[2016-12-16] MEDS ORDERED: AMLO5TAB2 PO (08:29)
[2016-12-16] MEDS ORDERED: AD60O TOP (08:29)
[2016-12-16] MEDS ORDERED: MICO90PO TOP (08:29)
[2016-12-16] MEDS ORDERED: SENN-20 PO (08:29)
[2016-12-16] MEDS ORDERED: INSU100V3 SC (08:29)
--- NOTE | 2016-12-16 08:34 | PM & R (SOAP) Progress Note ---
Subjective Time Seen by Provider: 08:00 Subjective/Events-last exam Patient was seen in his room this AM All set for discharge to home to wifes home in [place] Patient will have f/u with DR Johnson PCP and Orthospine and C.Current meds and labs reviewed. RXs for diazepam and Hydrocodone provided ( hard copy) and remainder transmitted to [facility]. See orders. Objective Exam Last Set of Vital Signs Vital Signs Date Time Temp Pulse Resp B/P (MAP) Pulse Ox O2 Delivery O2 Flow Rate FiO2 12/16/16 06:00 97.7 92 18 127/82 98 Room Air Capillary Refill : I&O Intake and Output 12/17/16 00:00 Intake Total 600 ml Output Total 1300 ml Balance -700 ml Intake Oral 600 ml Output Urine Total 1300 ml General: Alert, No Acute Distress HEENT: Atraumatic, PERRLA, EOMI, Mucous Memb Moist/[place] Neck: Supple, Other (inciasion healing well C Collar in place) Lungs: Normal Air Movement Heart: Regular Rate Abdomen: Normal Bowel Sounds Extremities: Other (trace edema rt hand) Skin: Other (rt heel wrapped) Neuro: Other (Quadriplegia, incomplete.) Results Lab Laboratory Tests 12/13/16 11:05: Glucometer 89 12/13/16 16:27: Glucometer 135H 12/14/16 06:09: Glucometer 124H 12/14/16 15:29: Glucometer 208H 12/14/16 21:12: Glucometer 108 12/15/16 05:19: Glucometer 151H 12/16/16 05:45: Glucometer 138H Assessment/Plan Assessment Cervical spine spondylosis with myelopathy s/p decompression DR Atkinson affecting U Limbs more then Lower with strength gradually improving but remaining with 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 F/U with PCP and orthospine and C Rxs provided JOSEY SALINAS MD Dec 16, 2016 08:34
[2016-12-16 10:40] VITALS: BP 127/82
--- NOTE | 2016-12-16 14:56 | Therapy Team Discharge Summary ---
Therapy Discharge Summary Discharge Recommendations Date of Discharge Dec 16, 2016 at 11:05 Therapy D/C Recommendations: Home w/ Family Support, Occupational Therapy Home Care, Scheduled Assistance Physical Therapy Patient came to rehab following cervical spine surgery. Upon evaluation patient performed bed mobility with max assist and sit to stand with max assist and bed chair wheelchair with max assist. He also uses the standing machine with nursing or to toilet but he is dependent with that transfer. Patient can drive a power wheelchair 200' with SBA. During his stay he performed bed mobility and transfer training, balance and endurance training, functional strengthening, gait training, wheelchair mobility training, and education. He has made good progress and has met all of his chcf goals. Now, patient performs bed mobility with min assist if he has a hospital bed, he only needs assist with his legs getting into bed. On a regular bed patient needs min assist for bed mobility, mod assist for supine to sit and [place]/CGA for sit to stand depending on the height he has to stand from. Patient ambulates 120'x2 using a bilateral platform walker with min assist, he needs assist guiding the walker, wheelchair follow. No ambulation over uneven surfaces but he can ambulate 50' with at least 2 turns of 90 degrees. Patient drives a power wheelchair with mod I. Patient has discharged from this facility and will be discharged from PT at this time. PT Nursing Home Goals Nursing Home Goals PT Senior Sales Representative Goals Time Frame: Nov 24, 2016 Transfers (B,C,W/C) (FIM): 4 (met) Roll Left to Right (QC): 3 (et) Sit to Lying (QC): 3 (met) Lying-Sitting on Side/Bed(QC): 3 (met) Sit to Stand (QC): 3 (met) Chair/Uxz-gz-Ttpdi Xfer(QC): 3 Gait (FIM): 1 (met) Distance: 20' Walk 10 feet (QC): 2 (met) Gait Level of Assist: 2 (met) Gait Assistive Device: FWW, Walker Platform Wheelchair (FIM): 6 Distance: 500' Wheelchair Level of Assist: 6 (met) Wheel 50 feet with 2 turns (QC: 6 (met) OT Senior Sales Representative Goals Nursing Home Goals Time Frame: Dec 01, 2016 Eating (FIM): 5 Eating (QC): 5 Oral Hygiene (QC): 5 Grooming(FIM): 5 Bathing(FIM): 5 Shower/Bathe Self (QC): 5 Upper Body Dressing(FIM): 5 Upper Body Dressing (QC): 5 Lower Body Dressing(FIM): 5 Lower Body Dressing (QC): 5 On/Off Footwear (QC): 4 Toileting(FIM): 5 Toileting Hygiene (QC): 5 Toilet/Commode Transfer(FIM): 5 Toilet/Commode Transfer (QC): 5 Shower Transfer(FIM): 5 Additional Goals: 2-Verbalize Understanding, 3-ImproveStrength/Fady 1=Demonstrate adherence to instructed precautions during ADL tasks. 2=Patient will verbalize/demonstrate understanding of assistive devices/ modifications for ADL. 3=Patient will improve strength/tolerance for activity to enable patient to perform ADL's. CATALINA RUBI PT Dec 16, 2016 14:56
--- NOTE | 2016-12-17 08:37 | Therapy Team Discharge Summary ---
Therapy Discharge Summary Discharge Recommendations Date of Discharge Dec 16, 2016 at 11:05 Therapy D/C Recommendations: Home w/ Family Support, Occupational Therapy Home Care, Scheduled Assistance Occupational Therapy Pt was seen for skilled OT to increase his independence in basic self care and to decrease caregiver burden after cervical spine surgery. On admission he was dependant for eating, grooming, bathing, lower body dressing, toileting, and max assist for upper body dressing. By discharge he had improved to min assist with eating, grooming and upper body dressing, mod assist with bathing, toilet and shower transfers, max assist with lower body dressing and dependant with toileting. Self care limited by weakness in bilat UEs (R worse than L) and decreased functional mobility. Equipment used at discharge included universal cuff, built up handle silverware, scoop plate, bath mitt, flat surface BSC, transfer tub bench and wheeled shower chair, FWW with platforms. LTG were not met but pt made significant progress toward meeting them. Recommend home health OT. DC OT PT Orthotic Practitioner Goals Care Home Goals PT Orthotic Practitioner Goals Time Frame: Nov 24, 2016 Transfers (B,C,W/C) (FIM): 4 (met) Roll Left to Right (QC): 3 (et) Sit to Lying (QC): 3 (met) Lying-Sitting on Side/Bed(QC): 3 (met) Sit to Stand (QC): 3 (met) Chair/Uxh-be-Xidqj Xfer(QC): 3 Gait (FIM): 1 (met) Distance: 20' Walk 10 feet (QC): 2 (met) Gait Level of Assist: 2 (met) Gait Assistive Device: FWW, Walker Platform Wheelchair (FIM): 6 Distance: 500' Wheelchair Level of Assist: 6 (met) Wheel 50 feet with 2 turns (QC: 6 (met) OT Care Home Goals Orthotic Practitioner Goals Time Frame: Dec 01, 2016 Eating (FIM): 5 (not met 12-14-) Eating (QC): 5 (not met 12-14-) Oral Hygiene (QC): 5 (not met 12-14-) Grooming(FIM): 5 (not met 12-14-) Bathing(FIM): 5 (not met 12-14-) Shower/Bathe Self (QC): 5 (not met 12-14-16) Upper Body Dressing(FIM): 5 (not met 12-14-16) Upper Body Dressing (QC): 5 (not met 12-14-16) Lower Body Dressing(FIM): 5 (not met 12-14-16) Lower Body Dressing (QC): 5 (not met 12-14-16) On/Off Footwear (QC): 4 (not met 12-14-16) Toileting(FIM): 5 (not met 12-14-16) Toileting Hygiene (QC): 5 (not met 12-14-16) Toilet/Commode Transfer(FIM): 5 (not met 12-14-16) Toilet/Commode Transfer (QC): 5 (not met 12-14-16) Shower Transfer(FIM): 5 (not met 12-14-16) Additional Goals: 2-Verbalize Understanding, 3-ImproveStrength/Fady 1=Demonstrate adherence to instructed precautions during ADL tasks. 2=Patient will verbalize/demonstrate understanding of assistive devices/ modifications for ADL. 3=Patient will improve strength/tolerance for activity to enable patient to perform ADL's. THAI HOOVER OT Dec 17, 2016 08:37
== END 2016-12-16 11:05 | disposition home health service (06) | DRG 950 ==
LOC: UNDOADMIN 10:52 → 4TH 10:52
PROVIDERS: ADMIT Physical Medicine & Rehabilitation; ATTEND Physical Medicine & Rehabilitation
PROC: 3E0U33Z Introduction of Anti-inflammatory into Joints, Percutaneous Approach (ICD-10-PCS; principal; 2016-11-20)
DX: Z48.89 Encounter for other specified surgical aftercare (principal); Z98.1 Arthrodesis status; R13.10 Dysphagia, unspecified; E11.649 Type 2 diabetes mellitus with hypoglycemia without coma; E11.42 Type 2 diabetes mellitus with diabetic polyneuropathy; M70.62 Trochanteric bursitis, left hip; M16.12 Unilateral primary osteoarthritis, left hip; G47.33 Obstructive sleep apnea (adult) (pediatric); M17.12 Unilateral primary osteoarthritis, left knee; I10 Essential (primary) hypertension; E78.5 Hyperlipidemia, unspecified; F32.9 Major depressive disorder, single episode, unspecified; L89.619 Pressure ulcer of right heel, unspecified stage; E87.6 Hypokalemia; Z79.4 Long term (current) use of insulin
CPT/HCPCS: 36415; 73502; 80048; 80053; 82962; 85025; 90732

== ENCOUNTER 2017-01-25 09:08 | Outpatient (RCR) | payer OTHER ==
[~2017-01-25 09:08] MED LIST changes: +AD60O TOP; +AMLO5TAB2 PO; +DIAZ5TAB3 PO; +INSU100V3 SC; +MENT71OI TOP; +MICO90PO TOP; +SENN-20 PO
== END 2017-01-25 17:00 | disposition home or self-care (01) ==
PROVIDERS: ATTEND Surgery
DX: Z02.71 Encounter for disability determination (principal)